=== PATIENT | female | born 1930 | race Caucasian/White ===

== ENCOUNTER 2018-08-26 10:09 | Emergency (ER) | payer MEDICARE ==
[~2018-08-26] VITALS: Ht 160 cm; Wt 63.5 kg
--- OUTSIDE RECORDS SUMMARY | 2018-08-26 10:23 | XMS REPORT | CCD ---
Author Author Sarah Gillis Organization [facility] Address [address] [place] [address] Phone Care Team Providers Care Molder Name Role Phone PP Unavailable CCM Unavailable Summary Purpose Interface Exchange Insurance Providers Payer name Policy type / Coverage type Covered libertarian ID Effective Begin Date Effective End Date WPS Medicare Part B Medicare Part B [id number] 2013 Unknown [facility] Medicare Part B [id number] 2013 Unknown Family history Brother Diagnosis Age At Onset No Family Disease Entered N/A Father Diagnosis Age At Onset No Family Disease Entered N/A Brother Diagnosis Age At Onset No Family Disease Entered N/A Daughter Diagnosis Age At Onset No Family Disease Entered N/A Daughter Diagnosis Age At Onset Amyotrophic lateral sclerosis Unknown Mother Diagnosis Age At Onset Hypertension Unknown Arthritis Unknown Hypercholesterolemia Unknown Social History Social History Element Codes Description Effective Dates Number of children Unknown 2 1 in 2010, 1 lives in [place] 11/07/2016 Marital status Unknown 04/28/2012 Employment Unknown Retired 04/28/[address]: 9107049 Quit over 10 years ago 04/28/[address]: 295528469 Never drinks alcohol 04/28/2012 Allergies, Adverse Reactions, Alerts Substance Reaction Codes Entered Date Inactivated Date Status Dust Unknown 04/28/2012 No Inactive Date Active * NO KNOWN FOOD ALLERGIES Unknown 04/28/2012 No Inactive Date Active CODEINE drowsiness RxNorm: 2670 04/16/2013 No Inactive Date Active Past Medical History Illness Codes Condition Status Onset Date Resolved Date Abnormal weight loss ICD-9: 783.21 ICD-10: R63.4 Active 12/09/2017 Unknown Dementia in other diseases classified elsewhere without behavioral disturbance ICD-9: 294.10 ICD-10: F02.80 Active 05/21/2017 Unknown Essential (primary) hypertension ICD-9: 401.1 ICD-10: I10 Active 04/24/2016 Unknown Vitamin D deficiency, unspecified ICD-9: 268.9 ICD-10: E55.9 Active 02/14/2018 Unknown Encounter for therapeutic drug level monitoring ICD-9: V58.61 ICD-10: Z51.81 Active 12/24/2013 Unknown Pain in left hip ICD-9 : 719.45 ICD-10: M25.552 Active 05/21/2017 Unknown Unspecified dementia with behavioral disturbance ICD-9: 294.21 ICD-10: F03.91 Active 01/07/2017 Unknown Unsteadiness on feet ICD-9: 781.2 ICD-10: R26.81 Active 02/14/2018 Unknown Localized edema ICD-9 : 782.3 ICD-10: R60.0 Active 11/27/2013 Unknown Gastro-esophageal reflux disease without esophagitis ICD-9: 530.81 ICD-10: K21.9 Active 05/07/2017 Unknown Essential (primary) hypertension ICD-9: 401.9 ICD-10: I10 Active 12/24/2013 Unknown Mixed hyperlipidemia ICD-9: 272.2 ICD-10: E78.2 Active 01/08/2017 Unknown Urinary tract infection, site not specified ICD-9: 599.0 ICD-10: N39.0 Active 01/08/2017 Unknown Dysuria ICD-9: 788.1 ICD-10: R30.0 Active 01/07/2017 Unknown Other care home (current) drug therapy ICD-9: V58.69 ICD-10: Z79.899 Active 04/30/2012 Unknown Actinic keratosis ICD- 9: 702.0 ICD-10: L57.0 Active 11/07/2016 Unknown Mixed hyperlipidemia ICD-9: 272.4 ICD-10: E78.2 Active 04/30/2012 Unknown Cervical disc disorder, unspecified, unspecified cervical region ICD-9: 722.91 ICD-10: M50.90 Active 10/03/2015 Unknown Cervicalgia ICD-9: 723.1 ICD-10: M54.2 Active 10/03/2015 Unknown Anemia, unspecified ICD-9: 285.9 ICD-10: D64.9 Active 07/31/2015 Unknown Encounter for immunization ICD-9: V04.81 ICD-10: Z23 Active 03/24/2015 Unknown EDEMA ICD-9: 782.3 Active 11/27/2013 Unknown ENCNTR LONG-ANTICOAG USE ICD-9: V58.61 Active 12/24/2013 Unknown ESSENTIAL HYPERTENSION ICD-9: 401.9 Active 12/24/2013 Unknown Left hip pain ICD-9: 719.45 Active 03/30/2014 Unknown Osteoarthritis ICD-9: 715.90 Active 03/30/2014 Unknown Sciatica Unknown Active 12/01/2013 Unknown Sacroiliitis ICD-9: 720.2 Active 12/01/2013 Unknown SCIATICA ICD-9: 724.3 Active 12/01/2013 Unknown Confusion ICD-9: 298.9 Active 04/30/2013 Unknown Memory loss ICD-9: 780.93 Active 04/30/2013 Unknown ACUTE BRONCHITIS ICD-9 : 466.0 Active 04/16/2013 Unknown Cough ICD-9: 786.2 Active 04/16/2013 Unknown VACCIN FOR INFLUENZA ICD-9: V04.81 Active 03/10/2013 Unknown Osteoarthritis Unknown Active 12/02/2012 Unknown BLISTER FOOT/TOE ICD-9 : 917.2 Active 12/02/2012 Unknown CELLULITIS OF FOOT ICD -9: 682.7 Active 12/02/2012 Unknown Back disorder ICD-9: 724.9 Active 10/08/2012 Unknown Disc disorder ICD-9: 722.90 Active 10/08/2012 Unknown Deep vein thrombosis Unknown Resolved 08/27/2012 Unknown Bruising ICD-9: 924.9 Active 08/27/2012 Unknown 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 2011 Unknown Drug therapy continued ICD-9: V58.69 Active 04/30/2012 Unknown HYPERLIPIDEMIA ICD-9: 272.4 Active 04/30/2012 Unknown Hyperlipidemia Unknown Active 04/28/2012 Unknown Hypertension Unknown Active 04/28/2012 Unknown Iliotibial band syndrome ICD-9: 728.89 Active 04/28/2012 Unknown Other bursitis, not elsewhere classified, left hip ICD-9: 726.5 Active 04/28/2012 Unknown Problems Condition Codes Effective Dates Condition Status Abnormal weight loss ICD-9: 783.21 ICD-10: R63.4 12/09/2017 Active Dementia in other diseases classified elsewhere without behavioral disturbance ICD-9: 294.10 ICD-10: F02.80 05/21/2017 Active Essential (primary) hypertension ICD-9: 401.1 ICD-10: I10 04/24/2016 Active Vitamin D deficiency, unspecified ICD-9: 268.9 ICD-10: E55.9 02/14/2018 Active Encounter for therapeutic drug level monitoring ICD-9: V58.61 ICD-10: Z51.81 12/24/2013 Active Pain in left hip ICD-9 : 719.45 ICD-10: M25.552 05/21/2017 Active Unspecified dementia with behavioral disturbance ICD-9: 294.21 ICD-10: F03.91 01/07/2017 Active Unsteadiness on feet ICD-9: 781.2 ICD-10: R26.81 02/14/2018 Active Localized edema ICD-9 : 782.3 ICD-10: R60.0 11/27/2013 Active Gastro-esophageal reflux disease without esophagitis ICD-9: 530.81 ICD-10: K21.9 05/07/2017 Active Essential (primary) hypertension ICD-9: 401.9 ICD-10: I10 12/24/2013 Active Mixed hyperlipidemia ICD-9: 272.2 ICD-10: E78.2 01/08/2017 Active Urinary tract infection, site not specified ICD-9: 599.0 ICD-10: N39.0 01/08/2017 Active Dysuria ICD-9: 788.1 ICD-10: R30.0 01/07/2017 Active 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 ICD-9: V58.69 ICD-10: Z79.899 04/30/2012 Active Actinic keratosis ICD- 9: 702.0 ICD-10: L57.0 11/07/2016 Active Mixed hyperlipidemia ICD-9: 272.4 ICD-10: E78.2 04/30/2012 Active Cervical disc disorder, unspecified, unspecified cervical region ICD-9: 722.91 ICD-10: M50.90 10/03/2015 Active Cervicalgia ICD-9: 723.1 ICD-10: M54.2 10/03/2015 Active Anemia, unspecified ICD-9: 285.9 ICD-10: D64.9 07/31/2015 Active Encounter for immunization ICD-9: V04.81 ICD-10: Z23 03/24/2015 Active EDEMA ICD-9: 782.3 11/27/2013 Active ENCNTR LONG-ANTICOAG USE ICD-9: V58.61 12/24/2013 Active ESSENTIAL HYPERTENSION ICD-9: 401.9 12/24/2013 Active Left hip pain ICD-9: 719.45 03/30/2014 Active Osteoarthritis ICD-9: 715.90 03/30/2014 Active Sciatica Unknown 12/01/2013 Active Sacroiliitis ICD-9: 720.2 12/01/2013 Active SCIATICA ICD-9: 724.3 12/01/2013 Active Confusion ICD-9: 298.9 04/30/2013 Active Memory loss ICD-9: 780.93 04/30/2013 Active ACUTE BRONCHITIS ICD-9 : 466.0 04/16/2013 Active Cough ICD-9: 786.2 04/16/2013 Active VACCIN FOR INFLUENZA ICD-9: V04.81 03/10/2013 Active Osteoarthritis Unknown 12/02/2012 Active BLISTER FOOT/TOE ICD-9 : 917.2 12/02/2012 Active CELLULITIS OF FOOT ICD -9: 682.7 12/02/2012 Active Back disorder ICD-9: 724.9 10/08/2012 Active Disc disorder ICD-9: 722.90 10/08/2012 Active Deep vein thrombosis Unknown 08/27/2012 Resolved Bruising ICD-9: 924.9 08/27/2012 Active 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 05/19/2012 Active Drug therapy continued ICD-9: V58.69 04/30/2012 Active HYPERLIPIDEMIA ICD-9: 272.4 04/30/2012 Active Hyperlipidemia Unknown 04/28/2012 Active Hypertension Unknown 04/28/2012 Active Iliotibial band syndrome ICD-9: 728.89 04/28/2012 Active Other bursitis, not elsewhere classified, left hip ICD-9: 726.5 04/28/2012 Active Medications Medication Codes Instructions Start Date Stop Date Status Fill Instructions Vitamin D3 5,000 unit tablet RxNorm: 954944 1 Tablet(s) PO daily 08/18/2018 02/13/2019 Active may give OTC bottle Coumadin 5 mg tablet RxNorm: 091681 1 Tablet(s) PO daily except 1/2 Tab on Sat, Sat07/21/2018 01/18/2019 Active hydrochlorothiazide 12.5 mg tablet RxNorm: 059354 1 Tablet(s) PO daily 07/11/2018 02/05/2019 Active Depakote 125 mg tablet,delayed release RxNorm: 7510510 Tablet(s) Tablet(s) 1 Tablet(s) PO QPM 05/16/2018 12/11/2018 Active PLEASE SEND REFILL REQUESTS ELECTRONICALLY pravastatin 40 mg tablet RxNorm: 026294 TAKE ONE TABLET BY MOUTH EVERY DAY 03/17/2018 02/09/2019 Active Generic For:*PRAVACHOL 40 MG TABLET 03/17/2018 8:03:02 AM amlodipine 5 mg tablet RxNorm: 729236 TAKE ONE (1) TABLET BY MOUTH DAILY 02/18/2018 02/12/2019 Active Generic For:NORVASC 5 MG TABLET 02/18/2018 10:12:27 AM Vitamin D3 5,000 unit tablet RxNorm: 701860 1 Tablet(s) PO daily 02/14/2018 02/13/2018 Inactive Vitamin D2 50,000 unit capsule RxNorm: 2692304 1 Capsule(s) PO QW 02/14/2018 02/13/2018 Inactive Vitamin D3 5,000 unit tablet RxNorm: 866064 1 Tablet(s) PO daily 02/14/2018 08/12/2018 Inactive may give OTC bottle Vitamin D2 50,000 unit capsule RxNorm: 0388237 1 Capsule(s) PO QW x8 weeks then stop 02/14/2018 04/14/2018 Inactive amlodipine 5 mg tablet RxNorm: 006868 1 Tablet(s) PO daily 02/17/2018 Inactive Generic For:NORVASC 5 MG TABLET REFILL REQUEST 08/27/2016 10:47:17 AM Coumadin 5 mg tablet RxNorm: 510489 1 Tablet(s) PO daily except 1/2 Tab on Wed, Sat12/16/2017 06/15/2018 Inactive hydrochlorothiazide 12.5 mg tablet RxNorm: 110899 1 Tablet(s) PO daily 12/16/2017 07/10/2018 Inactive hydrochlorothiazide 12.5 mg tablet RxNorm: 777975 Tablet(s) Tablet(s) 1 Tablet(s) PO daily 11/18/2017 12/15/2017 Inactive PLEASE SEND REFILL REQUESTS ELECTRONICALLY Depakote 125 mg tablet,delayed release RxNorm: 6058381 Tablet(s) Tablet(s) 1 Tablet(s) PO QPM 10/17/2017 05/14/2018 Inactive PLEASE SEND REFILL REQUESTS ELECTRONICALLY hydrochlorothiazide 12.5 mg tablet RxNorm: 304316 Tablet(s) Tablet(s) 1 Tablet(s) PO daily 10/17/2017 11/17/2017 Inactive PLEASE SEND REFILL REQUESTS ELECTRONICALLY Coumadin 5 mg tablet RxNorm: 826168 1 Tablet(s) daily TAKE 1 TABLET BY MOUTH DAILY 08/15/2017 12/15/2017 Inactive Coumadin 5 mg tablet RxNorm: 537788 Tablet(s) TAKE 1 TABLET BY MOUTH DAILY 06/24/2017 08/14/2017 Inactive pravastatin 40 mg tablet RxNorm: 694318 Tablet(s) TAKE ONE TABLET BY MOUTH EVERY DAY 05/27/2017 03/16/2018 Inactive Voltaren 1 % topical gel RxNorm: 968578 4 Gram(s) TOP QID 05/2106/19/2017 Inactive Depakote 125 mg tablet,delayed release RxNorm: 7919669 Tablet(s) 1 Tablet(s) PO QPM 04/22/2017 10/16/2017 Inactive hydrochlorothiazide 12.5 mg tablet RxNorm: 108820 Tablet(s) 1 Tablet(s) PO daily 03/22/2017 10/16/2017 Inactive amlodipine 5 mg tablet RxNorm: 188249 1 Tablet(s) PO daily 02/12/2018 Inactive Generic For:NORVASC 5 MG TABLET REFILL REQUEST 08/27/2016 10:47:17 AM cephalexin 500 mg tablet RxNorm: 601872 1 Tablet(s) PO TID 01/17/2017 Inactive cephalexin 500 mg tablet RxNorm: 085778 1 Tablet(s) PO TID 01/07/2017 Inactive Coumadin 5 mg tablet RxNorm: 421490 TAKE 1 TABLET BY MOUTH DAILY EXCEPT 1/2 TABLET ON SATURDAY AND Saturday12/26/2016 06/23/2017 Inactive Generic For:COUMADIN 5MG TAB 12/26/2016 9:17:49 AM N O T I C E Last quantity doesn't match original quantity Depakote 125 mg tablet,delayed release RxNorm: 3030742 Tablet(s) 1 Tablet(s) PO QPM 10/25/2016 04/21/2017 Inactive Coumadin 5 mg tablet RxNorm: 924654 TAKE 1 TABLET BY MOUTH DAILY EXCEPT 1/2 TABLET ON SATURDAY AND Saturday09/27/2016 12/25/2016 Inactive Generic For:COUMADIN 5MG TAB N O T I C E Last quantity doesn't match original quantity REFILL REQUEST 09/27/2016 9:43:11 AM Coumadin 4 mg tablet RxNorm: 220804 Tablet(s) as doctor directed TAKE 1 TABLET 4 days per week 09/27/2016 04/24/2017 Inactive Generic For:COUMADIN 4MG TAB amlodipine 5 mg tablet RxNorm: 727865 TAKE 1 TABLET BY MOUTH DAILY 08/27/2016 09/26/2016 Inactive Generic For:NORVASC 5 MG TABLET REFILL REQUEST 08/27/2016 10:47: 17 AM hydrochlorothiazide 12.5 mg tablet RxNorm: 930959 Tablet(s) 1 Tablet(s) PO daily 08/27/2016 03/21/2017 Inactive pravastatin 40 mg tablet RxNorm: 413577 Tablet(s) TAKE ONE TABLET BY MOUTH EVERY DAY 06/29/2016 05/24/2017 Inactive Coumadin 5 mg tablet RxNorm: 512461 1 Tablet(s) PO daily except 1/2 tab on Tu, 06/14/2016 09/26/2016 Inactive Coumadin 5 mg tablet RxNorm: 275900 1 Tablet(s) PO daily except 1/2 tab on Tues, Sat 06/12/2016 12/08/2016 Inactive Depakote 125 mg tablet,delayed release RxNorm: 5846156 1 Tablet(s) PO QPM 04/30/2016 10/24/2016 Inactive amlodipine 5 mg tablet RxNorm: 029957 Tablet(s) TAKE ONE TABLET BY MOUTH EVERY DAY 03/06/2016 08/26/2016 Inactive Generic For:NORVASC 5 MG TABLET 2015 9:02 :57 AM N O T I C E Last quantity doesn't match original quantity hydrochlorothiazide 12.5 mg tablet RxNorm: 935493 1 Tablet(s) PO daily 02/01/2016 08/26/2016 Inactive Coumadin 5 mg tablet RxNorm: 490438 1 Tablet(s) PO daily except 1/2 tab on , [facility] 12/26/2015 06/11/2016 Inactive Coumadin 5 mg tablet RxNorm: 928924 TAKE 1 TABLET BY MOUTH 3 DAYS PER WEEK ([facility], [facility]) 11/10/2015 12/25/2015 Inactive Generic For:COUMADIN 5MG TAB PT SAYS TAKING DIFFERENT NOW...WE NEED NEW RX PLEASE Coumadin 5 mg tablet RxNorm: 568185 Tablet(s) TAKE 1 TABLET BY MOUTH 5 DAYS PER WEEK [place] Sat11/04/201511/08 Inactive Generic For:COUMADIN 5MG TAB 10/04/2015 10:19:46 AM Depakote 125 mg tablet,delayed release RxNorm: 1225940 1 Tablet(s) PO QPM 11/04/2015 04/29/2016 Inactive Coumadin 5 mg tablet RxNorm: 806313 TAKE 1 TABLET BY MOUTH 3 DAYS PER WEEK ([facility], [facility]) 10/04/2015 11/03/2015 Inactive Generic For:COUMADIN 5MG TAB 10/04/2015 10:19:46 AM amlodipine 5 mg tablet RxNorm: 612317 Tablet(s) TAKE ONE TABLET BY MOUTH EVERY DAY 09/12/2015 03/05/2016 Inactive Generic For:NORVASC 5 MG TABLET 2015 9:02 :57 AM N O T I C E Last quantity doesn't match original quantity Coumadin 5 mg tablet RxNorm: 166491 1 Tablet(s) daily 201510/03/2015 Inactive Voltaren 1 % topical gel RxNorm: 497060 4 Gram(s) TOP QID 06/2904/24/2016 Inactive Depakote 125 mg tablet,delayed release RxNorm: 1638504 1 Tablet(s) PO QPM 06/29/2015 10/26/2015 Inactive hydrochlorothiazide 12.5 mg tablet RxNorm: 904609 1 Tablet(s) PO daily 06/29/2015 01/24/2016 Inactive Depakote 125 mg tablet,delayed release RxNorm: 9305442 1 Tablet(s) PO QPM 06/29/2015 06/28/2015 Inactive pravastatin 40 mg tablet RxNorm: 178543 Tablet(s) TAKE ONE TABLET BY MOUTH EVERY DAY 06/29/2015 06/28/2016 Inactive Generic For:*PRAVACHOL 40 MG TABLET Coumadin 5 mg tablet RxNorm: 885710 1 Tablet(s) PO TUE, THUR, SAT 3 days per week 05/09/2015 06/30/2015 Inactive take 4mg on sun sat amlodipine 5 mg tablet RxNorm: 551102 TAKE ONE TABLET BY MOUTH EVERY DAY 2015 09/06/2015 Inactive Generic For:NORVASC 5 MG TABLET 2015 9:02:57 AM N O T I C E Last quantity doesn't match original quantity Coumadin 5 mg tablet RxNorm: 614607 1 Tablet(s) PO TUE, THUR, SAT 3 days per week 11/15/2014 05/08/2015 Inactive take 4mg on sun sat Coumadin 4 mg tablet RxNorm: 508549 Tablet(s) as doctor directed TAKE 1 TABLET 4 days per week 11/15/2014 06/12/2015 Inactive Generic For:COUMADIN 4MG TAB Coumadin 5 mg tablet RxNorm: 287949 1 Tablet(s) PO TUE, THUR, SAT 10/27/2014 11/14/2014 Inactive TAKE 4MG ON SUN Sat [SAVINGS FOR NON-COVERED DRUGS -- BIN: 569082, PCN: ASPROD1, Group: XXXXX, ID# [id number], Questions: . THIS IS NOT INSURANCE.] Coumadin 5 mg tablet RxNorm: 086233 1 Tablet(s) PO TUE, THUR, SAT 10/27/2014 10/26/2014 Inactive amlodipine 5 mg tablet RxNorm: 714245 1 Tablet(s) PO daily 03/10/2015 Inactive Generic For:NORVASC 5 MG TABLET Generic For:NORVASC 5 MG TABLET 2012 8:54:53 AM pravastatin 40 mg tablet RxNorm: 929411 TAKE ONE TABLET BY MOUTH EVERY DAY 08/12/2014 06/28/2015 Inactive Generic For:*PRAVACHOL 40 MG TABLET Coumadin 4 mg tablet RxNorm: 246181 TAKE 1 TABLET BY MOUTH DAILY 08/12/2014 11/14/2014 Inactive Generic For:COUMADIN 4MG TAB pravastatin 40 mg tablet RxNorm: 596816 1 Tablet(s) PO daily TAKE ONE TABLET BY MOUTH EVERY DAY 08/11/2014 08/11/2014 Inactive Generic For:*PRAVACHOL 40 MG TABLET Generic For:*PRAVACHOL 40 MG TABLET Coumadin 4 mg tablet RxNorm: 374623 Tablet(s) PO TAKE ONE TABLET BY MOUTH EVERY DAY 08/11/2014 08/11/2014 Inactive Generic For:COUMADIN 4MG TAB Generic For: COUMADIN 4MG TAB [SAVINGS FOR NON-COVERED DRUGS -- BIN:829129, PCN: ASPROD1, Group: XXXXX, ID# [id number], Questions: . THIS IS NOT INSURANCE.] amlodipine 5 mg tablet RxNorm: 628224 1 Tablet(s) daily 1 Tablet(s) PO daily TAKE ONE (1) TABLET BY MOUTH DAILY 05/12/2014 09/13/2014 Inactive Generic For:NORVASC 5 MG TABLET Generic For:NORVASC 5 MG TABLET 05/18/2013 8:54:53 AM amlodipine 5 mg tablet RxNorm: 765112 1 Tablet(s) PO daily TAKE ONE (1) TABLET BY MOUTH DAILY 01/14/2014 05/11/2014 Inactive Generic For:NORVASC 5 MG TABLET Generic For:NORVASC 5 MG TABLET 05/18/2013 8:54:53 AM Coumadin 4 mg tablet RxNorm: 022085 TAKE 1 TABLET BY MOUTH DAILY 01/14/2014 08/11/2014 Inactive Generic For:COUMADIN 4MG TAB amlodipine 5 mg tablet RxNorm: 920329 1 Tablet(s) PO daily TAKE ONE (1) TABLET BY MOUTH DAILY 01/14/2014 01/08/2015 Inactive Generic For:NORVASC 5 MG TABLET Generic For:NORVASC 5 MG TABLET 05/18/2013 8:54:53 AM amlodipine 5 mg tablet RxNorm: 746817 1 Tablet(s) PO daily TAKE ONE (1) TABLET BY MOUTH DAILY 09/18/2013 01/13/2014 Inactive Generic For:NORVASC 5 MG TABLET Generic For:NORVASC 5 MG TABLET 05/18/2013 8:54:53 AM Coumadin 4 mg tablet RxNorm: 636735 4mg daily Tablet(s) PO daily 07/30/2013 01/13/2014 Inactive Generic For:COUMADIN 4MG TAB pravastatin 40 mg tablet RxNorm: 426805 Tablet(s) PO TAKE ONE TABLET BY MOUTH EVERY DAY 07/20/2013 08/10/2014 Inactive Generic For:*PRAVACHOL 40 MG TABLET Generic For:*PRAVACHOL 40 MG TABLET Kenalog 40 mg/mL suspension for injection RxNorm: 1442969 Milliliter(s) Inj 05/20/2013 05/20/2013 Inactive azithromycin 500 mg tablet RxNorm: 3112439 1 Tablet(s) PO daily 05/20/2013 05/24/2013 Inactive amlodipine 5 mg tablet RxNorm: 664511 Tablet(s) PO TAKE ONE (1) TABLET BY MOUTH DAILY 05/18/2013 05/17/2013 Inactive Generic For:NORVASC 5 MG TABLET Generic For: NORVASC 5 MG TABLET 05/18/2013 8:54:53 AM amlodipine 5 mg tablet RxNorm: 516310 1 Tablet(s) PO daily TAKE ONE (1) TABLET BY MOUTH DAILY 05/18/2013 09/17/2013 Inactive Generic For:NORVASC 5 MG TABLET Generic For:NORVASC 5 MG TABLET 05/18/2013 8:54:53 AM Coumadin 4 mg tablet RxNorm: 178811 2mg wed 4 mg other Tablet(s) PO daily 04/28/2013 07/29/2013 Inactive Generic For:COUMADIN 4MG TAB Coumadin 4 mg tablet RxNorm: 662792 4mg daily Tablet(s) PO daily 04/16/2013 04/27/2013 Inactive Generic For:COUMADIN 4MG TAB Rocephin 500 mg solution for injection RxNorm: 852551 Inj 04/1604/16/2013 Inactive amoxicillin 500 mg tablet RxNorm: 185530 1 Tablet(s) PO TID 04/22/2013 Inactive Coumadin 4 mg tablet RxNorm: 872159 Tablet(s) PO TAKE ONE TABLET BY MOUTH EVERY DAY 04/16/2013 08/10/2014 Inactive Generic For:COUMADIN 4MG TAB Generic For: COUMADIN 4MG TAB Coumadin 4 mg tablet RxNorm: 687519 4mg daily Tablet(s) PO daily 03/18/2013 04/15/2013 Inactive Generic For:COUMADIN 4MG TAB Coumadin 4 mg tablet RxNorm: 257845 2mg on tuesdays, 4mg others Tablet(s) PO daily 03/10/2013 03/17/2013 Inactive Generic For:COUMADIN 4MG TAB Influenza Virus Vaccine 0.5 mL RxNorm: IM 03/10/2013 03/10/2013 Inactive amlodipine 5 mg tablet RxNorm: 286695 Tablet(s) PO TAKE ONE (1) TABLET BY MOUTH DAILY 01/22/2013 05/17/2013 Inactive Generic For:NORVASC 5 MG TABLET 01/22/2013 9: 42:13 AM cephalexin 500 mg tablet RxNorm: 082757 1 Tablet(s) PO TID 12/08/2012 Inactive amlodipine 5 mg tablet RxNorm: 829296 Tablet(s) PO TAKE ONE (1) TABLET BY MOUTH DAILY 09/22/2012 01/21/2013 Inactive Generic For:NORVASC 5 MG TABLET 09/20/2012 9: 10AM 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 Thank you! Coumadin 4 mg tablet RxNorm: 060226 1 Tablet(s) PO daily TAKE ONE TABLET BY MOUTH EVERY DAY 09/15/2012 03/09/2013 Inactive Generic For:COUMADIN 4MG TAB Coumadin 4 mg tablet RxNorm: 446999 Tablet(s) PO TAKE ONE TABLET BY MOUTH EVERY DAY 09/12/2012 09/14/2012 Inactive Generic For:COUMADIN 4MG TAB Coumadin 4 mg tablet RxNorm: 012366 1 Tablet(s) PO daily 201209/11/2012 Inactive new dose Coumadin 4 mg tablet RxNorm: 453646 1 Tablet(s) PO daily 201207/15/2012 Inactive Coumadin 3 mg tablet RxNorm: 991944 1 1/2 Tablet(s) PO daily 07/16/2012 Inactive pravastatin 40 mg tablet RxNorm: 839897 1 Tablet(s) PO daily 07/19/2013 Inactive Coumadin 3 mg tablet RxNorm: 954318 1 1/2 Tablet(s) PO daily 07/15/2012 Inactive amlodipine 5 mg tablet RxNorm: 532696 1 Tablet(s) PO daily 05/201209/21/2012 Inactive Voltaren 1 % Topical Gel RxNorm: 582078 4 Gram(s) TOP QID 04/2805/27/2012 Inactive Chikis 180 mg tablet RxNorm: 472520 1 Tablet(s) PO daily No Start Date Active hydrochlorothiazide 12.5 mg tablet RxNorm: 943212 1 Tablet(s) PO daily No Start Date 06/28/2015 Inactive Ziac 2.5 mg-6.25 mg tablet RxNorm: 790384 1 Tablet(s) PO daily No Start Date 09/15/2013 Inactive Coumadin 3 mg tablet RxNorm: 936948 Tablet(s) PO No Start Date 04/30/2012 Inactive pravastatin 40 mg tablet RxNorm: 219131 1 Tablet(s) PO daily No Start Date 06/25/2012 Inactive Medication Administered Medication Codes Instructions Start Date Status Kenalog 40 mg/mL suspension for injection RxNorm: 8667187 Milliliter 05/20/2013 No longer Active Rocephin 500 mg solution for injection RxNorm: 079453 04/16/2013 No longer Active Influenza Virus Vaccine 0.5 mL RxNorm: 03/10/2013 No longer Active Immunizations Vaccine Codes Date Status Influenza CVX: 141 03/25/2015 completed Influenza CVX: 141 04/23/2014 completed Influenza CVX: 141 03/10/2013 completed Influenza CVX: 141 04/28/2012 completed Pneumococcal (Adult) CVX: 33 03/17/2011 completed Assessments Condition Codes Effective Dates Dementia in other diseases classified elsewhere without behavioral disturbance ICD-10: F02.80 ICD-9: 294.10 08/19/2018 Vitamin D deficiency, unspecified ICD-10: E55.9 ICD-9: 268.9 08/19/2018 Essential (primary) hypertension ICD-10: I10 ICD-9: 401.1 08/19/2018 Abnormal weight loss ICD-10: R63.4 ICD-9: 783.21 08/19/2018 Pain in left hip ICD-10: M25.552 ICD-9: 719.45 02/14/2018 Unsteadiness on feet ICD-10: R26.81 ICD-9: 781.2 02/14/2018 Unspecified dementia with behavioral disturbance ICD-10: F03.91 ICD-9: 294.21 02/14/2018 Encounter for therapeutic drug level monitoring ICD-10: Z51.81 ICD-9: V58.61 02/14/2018 Localized edema ICD-10: R60.0 ICD-9: 782.3 08/13/2017 Gastro-esophageal reflux disease without esophagitis ICD-10 : K21.9 ICD-9: 530.81 05/07/2017 Mixed hyperlipidemia ICD-10: E78.2 ICD-9: 272.2 01/08/2017 Urinary tract infection, site not specified ICD-10: N39.0 ICD-9: 599.0 01/08/2017 Essential (primary) hypertension ICD-10: I10 ICD-9: 401.9 01/08/2017 Dysuria ICD-10: R30.0 ICD-9: 788.1 01/07/2017 Other care home (current) drug therapy ICD-10: Z79.899 ICD-9: V58.69 01/07/2017 Mixed hyperlipidemia ICD-10: E78.2 ICD-9: 272.4 11/07/2016 Actinic keratosis ICD-10: L57.0 ICD-9: 702.0 11/07/2016 Cervical disc disorder, unspecified, unspecified cervical region ICD-10: M50.90 ICD-9: 722.91 10/04/2015 Cervicalgia ICD-10: M54.2 ICD-9: 723.1 10/04/2015 Anemia, unspecified ICD-10: D64.9 ICD-9: 285.9 08/01/2015 Encounter for immunization ICD-10: Z23 ICD-9: V04.81 03/25/2015 ENCNTR LONG-ANTICOAG USE ICD-9: V58.61 ESSENTIAL HYPERTENSION ICD-9: 401.9 02/17 Left hip pain ICD-9: 719.45 02/17/2015 Osteoarthritis ICD-9: 715.90 02/17/2015 EDEMA ICD-9: 782.3 02/17/2015 SCIATICA ICD-9: 724.3 12/24/2013 Sacroiliitis ICD-9: 720.2 12/01/2013 Acute bronchitis ICD-9: 466.0 05/20/2013 COUGH ICD-9: 786.2 05/20/2013 Memory loss ICD-9: 780.93 04/30/2013 Confusion ICD-9: 298.9 04/30/2013 VACCIN FOR INFLUENZA ICD-9: V04.81 2012 BLISTER FOOT/TOE ICD-9: 917.2 12/08/2012 CELLULITIS OF FOOT ICD-9: 682.7 2012 Disc disorder ICD-9: 722.90 10/08/2012 Back disorder ICD-9: 724.9 10/08/2012 MERALGIA PARESTHETICA ICD-9: 355.1 2012 Bruising ICD-9: 924.9 08/27/2012 ENTHESOPATHY OF HIP ICD-9: 726.5 2012 HYPERLIPIDEMIA ICD-9: 272.4 04/30/2012 Drug therapy continued ICD-9: V58.69 Iliotibial band syndrome ICD-9: 728.89 Reason For Visit Reason For Visit Effective Dates Notes hypertension 08/19/2018 lower leg pain 02/14/2018 lower leg pain 11/14/2017 lower leg pain 08/13/2017 lower leg pain 05/21/2017 arthralgia(s) 05/07/2017 skin lesion 01/08/2017 skin lesion 01/07/2017 hypertension 11/07/2016 hypertension 07/26/2016 hypertension 04/25/2016 hypertension 10/04/2015 hypertension 06/29/2015 vaccination against influenza 03/25/2015 hip pain 02/17/2015 hip pain 02/07/2015 vaccination against influenza 04/23/2014 hip pain 03/30/2014 hypertension 12/24/2013 hip pain 12/01/2013 edema 11/27/2013 hypertension 08/27/2013 cough 05/20/2013 shortness of breath 04/30/2013 cough 04/16/2013 hypertension 03/10/2013 edema 12/08/2012 hypertension 12/02/2012 leg pain/sciatica 10/08/2012 abnormal bleeding and bruising 08/27/2012 low back and leg pain 07/09/2012 hypertension 05/19/2012 hypertension 04/28/2012 Results Observation Observation Code Item Item Code Result Date Valproic Acid Azf097 VALPROIC 26.0 ug/ml 08/19/2018 Comp Metabolic Frg623 NA 141 mEq/L 08/19/2018 Comp Metabolic Jig767 K 3.9 mEq/L 08/19/2018 Comp Metabolic Zlt030 CL 105 mEq/L 08/19/2018 Comp Metabolic Wpo617 CO2 26.0 mEq/L 08/19/2018 Comp Metabolic Olm650 ANION GAP 14 08/19/2018 Comp Metabolic Bpz877 GLUCOSE 90 mg/dL 08/19/2018 Comp Metabolic Nun228 Creat 0.9 mg/dL 08/19/2018 Comp Metabolic Wwx664 eGFR 60 ml/min/1.73m2 08/19/2018 Comp Metabolic Omg051 BUN 15 mg/dL 08/19/2018 Comp Metabolic Ukw372 B/C Ratio 16.0 Ratio 08/19/2018 Comp Metabolic Pln273 CALCIUM 9.8 mg/dL 08/19/2018 Comp Metabolic Cxa850 ALK PHOS 55 U/L 08/19/2018 Comp Metabolic Jei884 AST(SGOT) 13 U/L 08/19/2018 Comp Metabolic Udh006 ALT(SGPT) 8 U/L 08/19/2018 Comp Metabolic Awn755 BILI T 0.5 mg/dL 08/19/2018 Comp Metabolic Xjj761 ALBUMIN 3.9 g/dL 08/19/2018 Comp Metabolic Bgj846 TPRO 6.6 g/dL 08/19/2018 Comp Metabolic Wae832 GLOB 2.7 g/dL 08/19/2018 Comp Metabolic Iuc554 A/G Ratio 1.4 Ratio 08/19/2018 Comp Metabolic Oyn228 Osmo 282 mOsmo 08/19/2018 Cbc With Differential Ord2 WBC 5.51 K/ul 08/19/2018 Cbc With Differential Ord2 RBC 4.77 M/ul 08/19/2018 Cbc With Differential Ord2 HGB 15.8 g/dl 08/19/2018 Cbc With Differential Ord2 HCT 47.6 % 08/19/2018 Cbc With Differential Ord2 Neut% 71.1 % 08/19/2018 Cbc With Differential Ord2 MCV 99.8 fl 08/19/2018 Cbc With Differential Ord2 Lymph% 18.3 % 08/19/2018 Cbc With Differential Ord2 MCH 33.1 pg 08/19/2018 Cbc With Differential Ord2 Bacon% 9.1 % 08/19/2018 Cbc With Differential Ord2 Eos% 1.3 % 08/19/2018 Cbc With Differential Ord2 MCHC 33.2 pg 08/19/2018 Cbc With Differential Ord2 PLT 217 K/ul 08/19/2018 Cbc With Differential Ord2 Baso% 0.2 % 08/19/2018 Cbc With Differential Ord2 Neut ABS# 3.92 K/ul 08/19/2018 Cbc With Differential Ord2 RDW 14.8 % 08/19/2018 Cbc With Differential Ord2 Lymph ABS# 1.01 K/ul 08/19/2018 Cbc With Differential Ord2 Bacon ABS# 0.5 K/ul 08/19/2018 Cbc With Differential Ord2 Eos ABS# 0.1 K/ul 08/19/2018 Cbc With Differential Ord2 Baso ABS# 0.0 K/ul 08/19/2018 Tsh Ord6 TSH (3rd IS) 2.91 uIU/mL 08/19/2018 Vitamin D 25 Oh Pus4424 VITAMIN D, 25 HYDROXY 87.16 ng/mL Pt Qkc4670 PT 27.0 seconds 08/18/2018 Pt Acu4315 INR 2.5 08/18/2018 Pt Scu7637 Low Intensity - 1.5-2.0 08/18/2018 Pt Rev5095 Mod intensity - 2.0-3.0 08/18/2018 Pt Bsk5202 Hi intensity - 3.0-4.0 08/18/2018 Pt Xtp1649 PT 30.3 seconds 07/18/2018 Pt Kcf1728 INR 2.9 07/18/2018 Pt Qwk9112 Low Intensity - 1.5-2.0 07/18/2018 Pt Drv8496 Mod intensity - 2.0-3.0 07/18/2018 Pt Odp1920 Hi intensity - 3.0-4.0 07/18/2018 Pt Obg4317 PT 32.5 seconds 06/20/2018 Pt Ujw8752 INR 3.2 06/20/2018 Pt Daa2039 Low Intensity - 1.5-2.0 06/20/2018 Pt Ayo2620 Mod intensity - 2.0-3.0 06/20/2018 Pt Pjd1630 Hi intensity - 3.0-4.0 06/20/2018 Pt Rtf7560 PT 30.3 seconds 05/19/2018 Pt Azx2415 INR 2.9 05/19/2018 Pt Xya8437 Low Intensity - 1.5-2.0 05/19/2018 Pt Glr9519 Mod intensity - 2.0-3.0 05/19/2018 Pt Bcj4963 Hi intensity - 3.0-4.0 05/19/2018 Pt Mdt4849 PT 28.9 seconds 04/18/2018 Pt Wup8305 INR 2.8 04/18/2018 Pt Ppt3565 Low Intensity - 1.5-2.0 04/18/2018 Pt Xaj2108 Mod intensity - 2.0-3.0 04/18/2018 Pt Npa9567 Hi intensity - 3.0-4.0 04/18/2018 Pt Fpx6510 PT 23.6 seconds 03/14/2018 Pt Tjv9350 INR 2.1 03/14/2018 Pt Jdu2614 Low Intensity - 1.5-2.0 03/14/2018 Pt Mgy9415 Mod intensity - 2.0-3.0 03/14/2018 Pt Jem5074 Hi intensity - 3.0-4.0 03/14/2018 Tsh Ord6 TSH (3rd IS) 2.84 uIU/mL 02/14/2018 Cbc With Differential Ord2 WBC 4.67 K/ul 02/14/2018 Cbc With Differential Ord2 RBC 4.86 M/ul 02/14/2018 Cbc With Differential Ord2 HGB 15.8 g/dl 02/14/2018 Cbc With Differential Ord2 HCT 47.9 % 02/14/2018 Cbc With Differential Ord2 Neut% 66.3 % 02/14/2018 Cbc With Differential Ord2 MCV 98.6 fl 02/14/2018 Cbc With Differential Ord2 Lymph% 18.8 % 02/14/2018 Cbc With Differential Ord2 MCH 32.5 pg 02/14/2018 Cbc With Differential Ord2 Bacon% 12.8 % 02/14/2018 Cbc With Differential Ord2 MCHC 33.0 pg 02/14/2018 Cbc With Differential Ord2 Eos% 1.9 % 02/14/2018 Cbc With Differential Ord2 PLT 223 K/ul 02/14/2018 Cbc With Differential Ord2 Baso% 0.2 % 02/14/2018 Cbc With Differential Ord2 RDW 14.8 % 02/14/2018 Cbc With Differential Ord2 Neut ABS# 3.09 K/ul 02/14/2018 Cbc With Differential Ord2 Lymph ABS# 0.88 K/ul 02/14/2018 Cbc With Differential Ord2 Bacon ABS# 0.6 K/ul 02/14/2018 Cbc With Differential Ord2 Eos ABS# 0.1 K/ul 02/14/2018 Cbc With Differential Ord2 Baso ABS# 0.0 K/ul 02/14/2018 Comp Metabolic Tkc084 NA 142 mEq/L 02/14/2018 Comp Metabolic Gsl967 K 4.0 mEq/L 02/14/2018 Comp Metabolic Qgi500 CL 107 mEq/L 02/14/2018 Comp Metabolic Prw364 CO2 25.0 mEq/L 02/14/2018 Comp Metabolic Aem792 ANION GAP 14 02/14/2018 Comp Metabolic Jvt571 GLUCOSE 71 mg/dL 02/14/2018 Comp Metabolic Ive668 Creat 0.8 mg/dL 02/14/2018 Comp Metabolic Dmq195 eGFR 77 ml/min/1.73m2 02/14/2018 Comp Metabolic Hbq252 BUN 11 mg/dL 02/14/2018 Comp Metabolic Kag584 B/C Ratio 14.5 Ratio 02/14/2018 Comp Metabolic Psq637 CALCIUM 9.3 mg/dL 02/14/2018 Comp Metabolic Xnd522 ALK PHOS 56 U/L 02/14/2018 Comp Metabolic Aqt422 AST(SGOT) 13 U/L 02/14/2018 Comp Metabolic Eop730 ALT(SGPT) 8 U/L 02/14/2018 Comp Metabolic Buj192 BILI T 0.7 mg/dL 02/14/2018 Comp Metabolic Xxc342 ALBUMIN 3.7 g/dL 02/14/2018 Comp Metabolic Giw612 TPRO 6.5 g/dL 02/14/2018 Comp Metabolic Hvg330 GLOB 2.8 g/dL 02/14/2018 Comp Metabolic Pmj339 A/G Ratio 1.3 Ratio 02/14/2018 Comp Metabolic Lkl900 Osmo 281 mOsmo 02/14/2018 Pt Rrg2444 PT 26.2 seconds 02/14/2018 Pt Emu5349 INR 2.4 02/14/2018 Pt Egd2621 Low Intensity - 1.5-2.0 02/14/2018 Pt Mmk0540 Mod intensity - 2.0-3.0 02/14/2018 Pt Qxk4531 Hi intensity - 3.0-4.0 02/14/2018 Vitamin D 25 Oh Khr8194 VITAMIN D, 25 HYDROXY 14.31 ng/mL Valproic Acid Flf096 VALPROIC 20.0 ug/ml 02/14/2018 Pt Kgq4404 PT 29.2 seconds 01/16/2018 Pt Gfd5518 INR 2.7 01/16/2018 Pt Ash1792 Low Intensity - 1.5-2.0 01/16/2018 Pt Yxd1062 Mod intensity - 2.0-3.0 01/16/2018 Pt Cwt6885 Hi intensity - 3.0-4.0 01/16/2018 Pt Pen1280 PT 29.1 seconds 12/09/2017 Pt Qnr3296 INR 2.7 12/09/2017 Pt Xlq9906 Low Intensity - 1.5-2.0 12/09/2017 Pt Gac7317 Mod intensity - 2.0-3.0 12/09/2017 Pt Jiy9702 Hi intensity - 3.0-4.0 12/09/2017 Pt Zxs6628 PT 25.5 seconds 10/31/2017 Pt Pdw8848 INR 2.3 10/31/2017 Pt Jmn7276 Low Intensity - 1.5-2.0 10/31/2017 Pt Uuj9719 Mod intensity - 2.0-3.0 10/31/2017 Pt Jmx4382 Hi intensity - 3.0-4.0 10/31/2017 Pt Jbo0807 PT 29.5 seconds 10/03/2017 Pt Tis1175 INR 2.8 10/03/2017 Pt Nne0243 Low Intensity - 1.5-2.0 10/03/2017 Pt Xew3026 Mod intensity - 2.0-3.0 10/03/2017 Pt Kbj7195 Hi intensity - 3.0-4.0 10/03/2017 Pt Bes3484 PT 28.1 seconds 08/30/2017 Pt Hkv9883 INR 2.6 08/30/2017 Pt Knu1451 Low Intensity - 1.5-2.0 08/30/2017 Pt Jbe4846 Mod intensity - 2.0-3.0 08/30/2017 Pt Tzw7640 Hi intensity - 3.0-4.0 08/30/2017 Pt Dhv1412 PT 33.2 seconds 08/15/2017 Pt Btm1439 INR 3.2 08/15/2017 Pt Ngm8480 Low Intensity - 1.5-2.0 08/15/2017 Pt Kup0141 Mod intensity - 2.0-3.0 08/15/2017 Pt Ocu8787 Hi intensity - 3.0-4.0 08/15/2017 Pt Ejj7919 PT 31.5 seconds 07/10/2017 Pt Yrb8636 INR 3.0 07/10/2017 Pt Vfx9516 Low Intensity - 1.5-2.0 07/10/2017 Pt Bmp3075 Mod intensity - 2.0-3.0 07/10/2017 Pt Kjj6706 Hi intensity - 3.0-4.0 07/10/2017 Pt Zan8060 PT 33.5 seconds 05/31/2017 Pt Tub7677 INR 3.2 05/31/2017 Pt Svu4019 Low Intensity - 1.5-2.0 05/31/2017 Pt Lbo5995 Mod intensity - 2.0-3.0 05/31/2017 Pt Xqe6700 Hi intensity - 3.0-4.0 05/31/2017 Pt Maz9643 PT 32.2 seconds 05/02/2017 Pt Qrc8459 INR 3.1 05/02/2017 Pt Yhj9722 Low Intensity - 1.5-2.0 05/02/2017 Pt Jeu3488 Mod intensity - 2.0-3.0 05/02/2017 Pt Dxk5551 Hi intensity - 3.0-4.0 05/02/2017 Pt Qzu8244 PT 26.8 seconds 03/28/2017 Pt Sub6409 INR 2.5 03/28/2017 Pt Ija4335 Low Intensity - 1.5-2.0 03/28/2017 Pt Zwf3684 Mod intensity - 2.0-3.0 03/28/2017 Pt Ubs9061 Hi intensity - 3.0-4.0 03/28/2017 Pt Fbl5027 PT 26.8 seconds 02/22/2017 Pt Ywe8648 INR 2.5 02/22/2017 Pt Ync7136 Low Intensity - 1.5-2.0 02/22/2017 Pt Lav8457 Mod intensity - 2.0-3.0 02/22/2017 Pt Fvi9155 Hi intensity - 3.0-4.0 02/22/2017 Pt Fru9231 PT 20.1 seconds 02/07/2017 Pt Yty7815 INR 1.7 02/07/2017 Pt Fvp6150 Low Intensity - 1.5-2.0 02/07/2017 Pt Mqp7615 Mod intensity - 2.0-3.0 02/07/2017 Pt Wwb7480 Hi intensity - 3.0-4.0 02/07/2017 Culture Urine [id number] URINE CULTURE SEE NOTES 01/10/2017 Culture Urine [id number] Continued Results 01/10/2017 Urine Culture Ucult Complete >100,000 col/ml aerobic growth sent to ref lab 01/08/2017 Valproic Acid (Depakote) S 212692 VALPROIC ACID 20.3 ug/mL 01/08/2017 Tsh Ord6 hTSH II 2.50 uIU/mL 01/07/2017 Cbc With Differential Ord2 WBC 4.94 K/ul 01/07/2017 Cbc With Differential Ord2 RBC 4.93 M/ul 01/07/2017 Cbc With Differential Ord2 HGB 15.8 g/dl 01/07/2017 Cbc With Differential Ord2 HCT 48.3 % 01/07/2017 Cbc With Differential Ord2 Neut% 67.3 % 01/07/2017 Cbc With Differential Ord2 MCV 98.0 fl 01/07/2017 Cbc With Differential Ord2 Lymph% 19.6 % 01/07/2017 Cbc With Differential Ord2 MCH 32.0 pg 01/07/2017 Cbc With Differential Ord2 Bacon% 10.5 % 01/07/2017 Cbc With Differential Ord2 MCHC 32.7 pg 01/07/2017 Cbc With Differential Ord2 Eos% 2.4 % 01/07/2017 Cbc With Differential Ord2 PLT 210 K/ul 01/07/2017 Cbc With Differential Ord2 Baso% 0.2 % 01/07/2017 Cbc With Differential Ord2 RDW 14.3 % 01/07/2017 Cbc With Differential Ord2 Neut ABS# 3.32 K/ul 01/07/2017 Cbc With Differential Ord2 Lymph ABS# 0.97 K/ul 01/07/2017 Cbc With Differential Ord2 Bacon ABS# 0.5 K/ul 01/07/2017 Cbc With Differential Ord2 Eos ABS# 0.1 K/ul 01/07/2017 Cbc With Differential Ord2 Baso ABS# 0.0 K/ul 01/07/2017 Comp Metabolic Kqq637 NA 142 mEq/L 01/07/2017 Comp Metabolic Xfv234 K 4.0 mEq/L 01/07/2017 Comp Metabolic Aps262 CL 105 mEq/L 01/07/2017 Comp Metabolic Jge351 CO2 24.0 mEq/L 01/07/2017 Comp Metabolic Qgm367 ANION GAP 17 01/07/2017 Comp Metabolic Cxm200 GLUCOSE 81 mg/dL 01/07/2017 Comp Metabolic Hso864 Creat 0.8 mg/dL 01/07/2017 Comp Metabolic Wgz026 eGFR 72 ml/min/1.73m2 01/07/2017 Comp Metabolic Fto252 BUN 12 mg/dL 01/07/2017 Comp Metabolic Pqv809 B/C Ratio 15.0 Ratio 01/07/2017 Comp Metabolic Mls510 CALCIUM 9.0 mg/dL 01/07/2017 Comp Metabolic Shr445 ALK PHOS 59 U/L 01/07/2017 Comp Metabolic Far275 AST(SGOT) 18 U/L 01/07/2017 Comp Metabolic Dbb095 ALT(SGPT) 11 U/L 01/07/2017 Comp Metabolic Idn518 BILI T 0.6 mg/dL 01/07/2017 Comp Metabolic Bjz382 ALBUMIN 3.6 g/dL 01/07/2017 Comp Metabolic Kyw530 TPRO 6.7 g/dL 01/07/2017 Comp Metabolic Uqq322 GLOB 3.1 g/dL 01/07/2017 Comp Metabolic Cry566 A/G Ratio 1.2 Ratio 01/07/2017 Comp Metabolic Wmk937 Osmo 282 mOsmo 01/07/2017 Pt Olv6886 PT 19.5 seconds 01/07/2017 Pt Laj3995 INR 1.7 01/07/2017 Pt Htm0739 Low Intensity - 1.5-2.0 01/07/2017 Pt Ksr9942 Mod intensity - 2.0-3.0 01/07/2017 Pt Aqw5406 Hi intensity - 3.0-4.0 01/07/2017 Pt Pwk1158 PT 22.5 seconds 12/06/2016 Pt Nbv9881 INR 2.1 12/06/2016 Pt Tuq2910 Low Intensity - 1.5-2.0 12/06/2016 Pt Lhh8216 Mod intensity - 2.0-3.0 12/06/2016 Pt Umf9256 Hi intensity - 3.0-4.0 12/06/2016 Pt Rej8729 PT 20.8 seconds 10/29/2016 Pt Voc3787 INR 1.9 10/29/2016 Pt Tfb2564 Low Intensity - 1.5-2.0 10/29/2016 Pt Vkd3837 Mod intensity - 2.0-3.0 10/29/2016 Pt Dgw3250 Hi intensity - 3.0-4.0 10/29/2016 Pt Ken8799 PT 21.9 seconds 09/24/2016 Pt Plh7496 INR 2.0 09/24/2016 Pt Ngk0284 Low Intensity - 1.5-2.0 09/24/2016 Pt Vsy7639 Mod intensity - 2.0-3.0 09/24/2016 Pt Ein6949 Hi intensity - 3.0-4.0 09/24/2016 Pt Xwc9299 PT 21.0 seconds 09/10/2016 Pt Rez6365 INR 1.9 09/10/2016 Pt Ezu3890 Low Intensity - 1.5-2.0 09/10/2016 Pt Ufo4514 Mod intensity - 2.0-3.0 09/10/2016 Pt Jha1765 Hi intensity - 3.0-4.0 09/10/2016 Pt Fys0933 PT 22.8 seconds 08/20/2016 Pt Iuy7000 INR 2.1 08/20/2016 Pt Ctg7993 Low Intensity - 1.5-2.0 08/20/2016 Pt Pfq8345 Mod intensity - 2.0-3.0 08/20/2016 Pt Qel8537 Hi intensity - 3.0-4.0 08/20/2016 Pt Vok0757 PT 19.2 seconds 08/02/2016 Pt Shs0322 INR 1.7 08/02/2016 Pt Gel5140 Low Intensity - 1.5-2.0 08/02/2016 Pt Yhb2754 Mod intensity - 2.0-3.0 08/02/2016 Pt Kxj8887 Hi intensity - 3.0-4.0 08/02/2016 Pt Nma3175 PT 31.2 seconds 07/12/2016 Pt Hdu6455 INR 3.2 07/12/2016 Pt Cki0216 Low Intensity - 1.5-2.0 07/12/2016 Pt Fpe1331 Mod intensity - 2.0-3.0 07/12/2016 Pt Fgb7098 Hi intensity - 3.0-4.0 07/12/2016 Pt Tnd8093 PT 20.3 seconds 07/05/2016 Pt Ylu6004 INR 1.8 07/05/2016 Pt Ono0395 Low Intensity - 1.5-2.0 07/05/2016 Pt Mdb8296 Mod intensity - 2.0-3.0 07/05/2016 Pt Ktp1780 Hi intensity - 3.0-4.0 07/05/2016 Pt Ehs9636 PT 22.2 seconds 05/29/2016 Pt Pef1472 INR 2.1 05/29/2016 Pt Bwa2940 Low Intensity - 1.5-2.0 05/29/2016 Pt Ybp9909 Mod intensity - 2.0-3.0 05/29/2016 Pt Efo4045 Hi intensity - 3.0-4.0 05/29/2016 Tsh Ord6 hTSH II 3.38 uIU/mL 04/25/2016 Comp Metabolic Nhg582 NA 138 mEq/L 04/25/2016 Comp Metabolic Xpn199 K 4.1 mEq/L 04/25/2016 Comp Metabolic Ifv082 CL 105 mEq/L 04/25/2016 Comp Metabolic Oer830 CO2 25.0 mEq/L 04/25/2016 Comp Metabolic Kml240 ANION GAP 12 04/25/2016 Comp Metabolic Tzr539 GLUCOSE 89 mg/dL 04/25/2016 Comp Metabolic Sri263 Creat 0.8 mg/dL 04/25/2016 Comp Metabolic Aex319 eGFR 71 ml/min/1.73m2 04/25/2016 Comp Metabolic Jms385 BUN 14 mg/dL 04/25/2016 Comp Metabolic Kme434 B/C Ratio 17.3 Ratio 04/25/2016 Comp Metabolic Aic214 CALCIUM 9.0 mg/dL 04/25/2016 Comp Metabolic Rhr127 ALK PHOS 63 U/L 04/25/2016 Comp Metabolic Bgf108 AST(SGOT) 15 U/L 04/25/2016 Comp Metabolic Cew382 ALT(SGPT) 9 U/L 04/25/2016 Comp Metabolic Oak559 BILI T 0.4 mg/dL 04/25/2016 Comp Metabolic Mnm716 ALBUMIN 3.7 g/dL 04/25/2016 Comp Metabolic Pto768 TPRO 6.4 g/dL 04/25/2016 Comp Metabolic Fgw098 GLOB 2.7 g/dL 04/25/2016 Comp Metabolic Ias742 A/G Ratio 1.4 Ratio 04/25/2016 Comp Metabolic Eiw320 Osmo 276 mOsmo 04/25/2016 Valproic Acid Hnn953 VALPROIC 17.0 ug/ml 04/25/2016 Cbc With Differential Ord2 WBC 4.98 K/ul 04/25/2016 Cbc With Differential Ord2 RBC 4.68 M/ul 04/25/2016 Cbc With Differential Ord2 HGB 15.2 g/dl 04/25/2016 Cbc With Differential Ord2 HCT 46.3 % 04/25/2016 Cbc With Differential Ord2 Neut% 59.3 % 04/25/2016 Cbc With Differential Ord2 MCV 98.9 fl 04/25/2016 Cbc With Differential Ord2 Lymph% 25.9 % 04/25/2016 Cbc With Differential Ord2 MCH 32.5 pg 04/25/2016 Cbc With Differential Ord2 Bacon% 12.4 % 04/25/2016 Cbc With Differential Ord2 MCHC 32.8 pg 04/25/2016 Cbc With Differential Ord2 Eos% 2.2 % 04/25/2016 Cbc With Differential Ord2 PLT 203 K/ul 04/25/2016 Cbc With Differential Ord2 Baso% 0.2 % 04/25/2016 Cbc With Differential Ord2 RDW 14.1 % 04/25/2016 Cbc With Differential Ord2 Neut ABS# 2.95 K/ul 04/25/2016 Cbc With Differential Ord2 Lymph ABS# 1.29 K/ul 04/25/2016 Cbc With Differential Ord2 Bacon ABS# 0.6 K/ul 04/25/2016 Cbc With Differential Ord2 Eos ABS# 0.1 K/ul 04/25/2016 Cbc With Differential Ord2 Baso ABS# 0.0 K/ul 04/25/2016 Pt Kgu4133 PT 21.9 seconds 04/25/2016 Pt Ntp1814 INR 2.0 04/25/2016 Pt Ohj9844 Low Intensity - 1.5-2.0 04/25/2016 Pt Pah5129 Mod intensity - 2.0-3.0 04/25/2016 Pt Iwm0297 Hi intensity - 3.0-4.0 04/25/2016 Pt Yrm4710 PT 24.4 seconds 03/27/2016 Pt Hqs7579 INR 2.3 03/27/2016 Pt Mzj9719 Low Intensity - 1.5-2.0 03/27/2016 Pt Trs4017 Mod intensity - 2.0-3.0 03/27/2016 Pt Vfy4659 Hi intensity - 3.0-4.0 03/27/2016 Pt Fuf9572 PT 22.7 seconds 02/24/2016 Pt Dba6223 INR 2.1 02/24/2016 Pt Qse4208 Low Intensity - 1.5-2.0 02/24/2016 Pt Pan2414 Mod intensity - 2.0-3.0 02/24/2016 Pt Bwa2526 Hi intensity - 3.0-4.0 02/24/2016 Pt Gpf7591 PT 24.2 seconds 02/10/2016 Pt Dpz6719 INR 2.3 02/10/2016 Pt Uzl2919 Low Intensity - 1.5-2.0 02/10/2016 Pt Yhv9015 Mod intensity - 2.0-3.0 02/10/2016 Pt Bus7099 Hi intensity - 3.0-4.0 02/10/2016 Pt Svm0674 PT 15.7 seconds 01/26/2016 Pt Yjl8714 INR 1.3 01/26/2016 Pt Gpz1125 Low Intensity - 1.5-2.0 01/26/2016 Pt Gmo8247 Mod intensity - 2.0-3.0 01/26/2016 Pt Yer4463 Hi intensity - 3.0-4.0 01/26/2016 Pt Rwv4506 PT 22.0 seconds 01/02/2016 Pt Hje0993 INR 2.0 01/02/2016 Pt Hzu0791 Low Intensity - 1.5-2.0 01/02/2016 Pt Tvf7828 Mod intensity - 2.0-3.0 01/02/2016 Pt Ekb0209 Hi intensity - 3.0-4.0 01/02/2016 Pt Mua6518 PT 21.9 seconds 11/30/2015 Pt Hll9639 INR 2.0 11/30/2015 Pt Rrf7612 Low Intensity - 1.5-2.0 11/30/2015 Pt Nzb2680 Mod intensity - 2.0-3.0 11/30/2015 Pt Lte6201 Hi intensity - 3.0-4.0 11/30/2015 Pt Uqm9977 PT 20.0 seconds 10/28/2015 Pt Orw0333 INR 1.8 10/28/2015 Pt Tas1329 Low Intensity - 1.5-2.0 10/28/2015 Pt Rwb4870 Mod intensity - 2.0-3.0 10/28/2015 Pt Wwo7366 Hi intensity - 3.0-4.0 10/28/2015 Cbc With Differential Ord2 WBC 5.50 K/ul 09/19/2015 Cbc With Differential Ord2 RBC 4.48 M/ul 09/19/2015 Cbc With Differential Ord2 HGB 14.4 g/dl 09/19/2015 Cbc With Differential Ord2 HCT 42.6 % 09/19/2015 Cbc With Differential Ord2 Neut% 69.0 % 09/19/2015 Cbc With Differential Ord2 MCV 95.1 fl 09/19/2015 Cbc With Differential Ord2 Lymph% 17.8 % 09/19/2015 Cbc With Differential Ord2 MCH 32.2 pg 09/19/2015 Cbc With Differential Ord2 Bacon% 11.4 % 09/19/2015 Cbc With Differential Ord2 MCHC 33.9 pg 09/19/2015 Cbc With Differential Ord2 Eos% 1.4 % 09/19/2015 Cbc With Differential Ord2 PLT 200 K/ul 09/19/2015 Cbc With Differential Ord2 Baso% 0.4 % 09/19/2015 Cbc With Differential Ord2 Neut ABS# 3.45 K/ul 09/19/2015 Cbc With Differential Ord2 RDW 13.7 % 09/19/2015 Cbc With Differential Ord2 Lymph ABS# 0.89 K/ul 09/19/2015 Cbc With Differential Ord2 Bacon ABS# 0.6 K/ul 09/19/2015 Cbc With Differential Ord2 Eos ABS# 0.1 K/ul 09/19/2015 Cbc With Differential Ord2 Baso ABS# 0.0 K/ul 09/19/2015 Cbc With Differential Ord2 New Analyzer Notice Please note new ref ranges starting 06-29-2015 due to implemntation of new five part differential hematolgy analyzer. 09/19/2015 Pt Vvk8752 PT 28.3 seconds 09/19/2015 Pt Bgv8033 INR 2.8 09/19/2015 Pt Uxd9675 Low Intensity - 1.5-2.0 09/19/2015 Pt Rwu4440 Mod intensity - 2.0-3.0 09/19/2015 Pt Vrc3428 Hi intensity - 3.0-4.0 09/19/2015 Pt Zaj0120 PT 22.5 seconds 08/12/2015 Pt Lpt4142 INR 2.1 08/12/2015 Pt Fib7350 Low Intensity - 1.5-2.0 08/12/2015 Pt Xqe8497 Mod intensity - 2.0-3.0 08/12/2015 Pt Jqx8935 Hi intensity - 3.0-4.0 08/12/2015 Pt Fyy2493 PT 34.1 seconds 07/29/2015 Pt Gob3031 INR 3.5 07/29/2015 Pt Vsi6921 Low Intensity - 1.5-2.0 07/29/2015 Pt Ooc4384 Mod intensity - 2.0-3.0 07/29/2015 Pt Zeg6008 Hi intensity - 3.0-4.0 07/29/2015 Tsh Ord6 hTSH II 2.48 uIU/mL 06/29/2015 Pt Wvc1319 PT 14.2 seconds 06/29/2015 Pt Bji5984 INR 1.1 06/29/2015 Pt Vmu8997 Low Intensity - 1.5-2.0 06/29/2015 Pt Xtf3434 Mod intensity - 2.0-3.0 06/29/2015 Pt Fxj2147 Hi intensity - 3.0-4.0 06/29/2015 Comp Metabolic Wul580 NA 139 mEq/L 06/29/2015 Comp Metabolic Vme097 K 3.8 mEq/L 06/29/2015 Comp Metabolic Yta489 CL 105 mEq/L 06/29/2015 Comp Metabolic Oea427 CO2 21.0 mEq/L 06/29/2015 Comp Metabolic Har732 ANION GAP 17 06/29/2015 Comp Metabolic Lxo314 GLUCOSE 78 mg/dL 06/29/2015 Comp Metabolic Xtf060 Creat 0.7 mg/dL 06/29/2015 Comp Metabolic Tas670 eGFR 86 ml/min/1.73m2 06/29/2015 Comp Metabolic Ipo008 BUN 7 mg/dL 06/29/2015 Comp Metabolic Sew430 B/C Ratio 10.1 Ratio 06/29/2015 Comp Metabolic Wua584 CALCIUM 9.3 mg/dL 06/29/2015 Comp Metabolic Ysg178 ALK PHOS 84 U/L 06/29/2015 Comp Metabolic Fdk075 AST(SGOT) 17 U/L 06/29/2015 Comp Metabolic Pqp935 ALT(SGPT) 10 U/L 06/29/2015 Comp Metabolic Huu302 BILI T 1.0 mg/dL 06/29/2015 Comp Metabolic Tzs038 ALBUMIN 4.1 g/dL 06/29/2015 Comp Metabolic Owu047 TPRO 7.0 g/dL 06/29/2015 Comp Metabolic Psl084 GLOB 2.9 g/dL 06/29/2015 Comp Metabolic Oje633 A/G Ratio 1.4 Ratio 06/29/2015 Comp Metabolic Luj283 Osmo 274 mOsmo 06/29/2015 CBC With Differential * WBC 4.8 K/uL 06/29/2015 CBC With Differential * LYM 1.2 K/uL 06/29/2015 CBC With Differential * LYM% 25.8 % 06/29/2015 CBC With Differential * NEUT/GRAN 3.1 K/uL 06/29/2015 CBC With Differential * NEUT/GRAN % 64.8 % 06/29/2015 CBC With Differential * MID 0.5 K/uL 06/29/2015 CBC With Differential * MID% 9.4 % 06/29/2015 CBC With Differential * RBC 4.96 M/uL 06/29/2015 CBC With Differential * HGB 15.4 g/dL 06/29/2015 CBC With Differential * HCT 49.4 % 06/29/2015 CBC With Differential * MCV 100 fL 06/29/2015 CBC With Differential * MCH 31 pg 06/29/2015 CBC With Differential * MCHC 31 g/dL 06/29/2015 CBC With Differential * PLT 243 K/uL 06/29/2015 CBC With Differential * RDW 13.9 % 06/29/2015 Lipid Ord30 CHOL 205 mg/dL 06/29/2015 Lipid Ord30 HDL 59.0 mg/dl 06/29/2015 Lipid Ord30 TRIG 118 mg/dL 06/29/2015 Lipid Ord30 LDL 122 mg/dL 06/29/2015 Lipid Ord30 C/HDL 3.5 Ratio 06/29/2015 Pt [id number] PT 25.9 seconds 05/16/2015 Pt Qqp9049 INR 2.5 05/16/2015 Pt Zmz2956 Low Intensity - 1.5-2.0 05/16/2015 Pt Emq0134 Mod intensity - 2.0-3.0 05/16/2015 Pt Vau9610 Hi intensity - 3.0-4.0 05/16/2015 Pt Mht7319 PT 28.2 seconds 04/19/2015 Pt Dlc4002 INR 2.7 04/19/2015 Pt Mte9256 Low Intensity - 1.5-2.0 04/19/2015 Pt Lfa8641 Mod intensity - 2.0-3.0 04/19/2015 Pt Bln6891 Hi intensity - 3.0-4.0 04/19/2015 Pt Hqx2626 PT 29.7 seconds 02/17/2015 Pt Cgj7818 INR 2.9 02/17/2015 Pt Dhg0273 Low Intensity - 1.5-2.0 02/17/2015 Pt Plx6295 Mod intensity - 2.0-3.0 02/17/2015 Pt Jjf7501 Hi intensity - 3.0-4.0 02/17/2015 Cbc With Differential Ord2 WBC 5.4 K/uL 02/07/2015 Cbc With Differential Ord2 LYM 1.3 K/uL 02/07/2015 Cbc With Differential Ord2 LYM% 24.9 % 02/07/2015 Cbc With Differential Ord2 NEUT/GRAN 3.7 K/uL 02/07/2015 Cbc With Differential Ord2 NEUT/GRAN % 68.5 % 02/07/2015 Cbc With Differential Ord2 MID 0.4 K/uL 02/07/2015 Cbc With Differential Ord2 MID% 6.6 % 02/07/2015 Cbc With Differential Ord2 RBC 4.83 M/uL 02/07/2015 Cbc With Differential Ord2 HGB 15.1 g/dL 02/07/2015 Cbc With Differential Ord2 HCT 46.6 % 02/07/2015 Cbc With Differential Ord2 MCV 96 fL 02/07/2015 Cbc With Differential Ord2 MCH 31 pg 02/07/2015 Cbc With Differential Ord2 MCHC 32 g/dL 02/07/2015 Cbc With Differential Ord2 PLT 283 K/uL 02/07/2015 Cbc With Differential Ord2 RDW 14.5 % 02/07/2015 Pt Gkt3186 PT 26.8 seconds 02/07/2015 Pt Mrs0749 INR 2.6 02/07/2015 Pt Gli1424 Low Intensity - 1.5-2.0 02/07/2015 Pt Lwf2104 Mod intensity - 2.0-3.0 02/07/2015 Pt Orb0341 Hi intensity - 3.0-4.0 02/07/2015 Tsh Ord6 hTSH II 2.36 uIU/mL 02/07/2015 Comp Metabolic Lqn762 NA 136 mEq/L 02/07/2015 Comp Metabolic Bwz764 K 4.2 mEq/L 02/07/2015 Comp Metabolic Hjy581 CL 105 mEq/L 02/07/2015 Comp Metabolic Ylq104 CO2 23.0 mEq/L 02/07/2015 Comp Metabolic Lzs592 ANION GAP 12 02/07/2015 Comp Metabolic Uin361 GLUCOSE 129 mg/dL 02/07/2015 Comp Metabolic Qdu893 Creat 0.9 mg/dL 02/07/2015 Comp Metabolic Zpz877 eGFR 67 ml/min/1.73m2 02/07/2015 Comp Metabolic Aln793 BUN 13 mg/dL 02/07/2015 Comp Metabolic Wqz840 B/C Ratio 15.1 Ratio 02/07/2015 Comp Metabolic Ibr554 CALCIUM 9.3 mg/dL 02/07/2015 Comp Metabolic Fua365 ALK PHOS 79 U/L 02/07/2015 Comp Metabolic Ihc555 AST(SGOT) 16 U/L 02/07/2015 Comp Metabolic Gvj989 ALT(SGPT) 10 U/L 02/07/2015 Comp Metabolic Gra506 BILI T 0.5 mg/dL 02/07/2015 Comp Metabolic Hxf482 ALBUMIN 4.0 g/dL 02/07/2015 Comp Metabolic Sue484 TPRO 6.9 g/dL 02/07/2015 Comp Metabolic Goq195 GLOB 2.9 g/dL 02/07/2015 Comp Metabolic Ffx915 A/G Ratio 1.4 Ratio 02/07/2015 Comp Metabolic Uwh898 Osmo 274 mOsmo 02/07/2015 Pt Ecq6900 PT 27.9 seconds 02/04/2015 Pt Wps1256 INR 2.7 02/04/2015 Pt [id number] Low Intensity - 1.5-2.0 02/04/2015 Pt [id number] Mod intensity - 2.0-3.0 02/04/2015 Pt [id number] Hi intensity - 3.0-4.0 02/04/2015 Pt [id number] PT 17.2 seconds 01/25/2015 Pt [id number] INR 1.4 01/25/2015 Pt [id number] Low Intensity - 1.5-2.0 01/25/2015 Pt [id number] Mod intensity - 2.0-3.0 01/25/2015 Pt [id number] Hi intensity - 3.0-4.0 01/25/2015 Pt [id number] PT 20.7 seconds 12/23/2014 Pt [id number] INR 1.8 12/23/2014 Pt [id number] Low Intensity - 1.5-2.0 12/23/2014 Pt [id number] Mod intensity - 2.0-3.0 12/23/2014 Pt [id number] Hi intensity - 3.0-4.0 12/23/2014 PT/MC [id number] PRO TIME 24.9 SEC 08/27/2012 PT/MC [id number] INR MCMC 2.2 08/27/2012 PT/MC [id number] PRO TIME 31.1 SEC 05/13/2012 PT/MC [id number] INR MCMC 3.0 05/13/2012 GFR CALC [id number] GFR AA >60 ML/MIN 04/30/2012 GFR CALC [id number] GFR NON-AA >60 ML/MIN 04/30/2012 CHEM 14 [id number] AST 16 U/L 04/30/2012 CHEM 14 [id number] ALT 9 IU/L 04/30/2012 CHEM 14 [id number] BUN 7 MG/DL 04/30/2012 CHEM 14 [id number] ALBUMIN 4.0 GM/DL 04/30/2012 CHEM 14 [id number] CHLORIDE 107 MMOL/L 04/30/2012 CHEM 14 [id number] BILI TOT 0.7 MG/DL 04/30/2012 CHEM 14 [id number] ALK PHOS 68 U/L 04/30/2012 CHEM 14 [id number] SODIUM 142 MMOL/L 04/30/2012 CHEM 14 [id number] CREATININE 0.80 MG/DL 04/30/2012 CHEM 14 [id number] CALCIUM 9.5 MG/DL 04/30/2012 CHEM 14 [id number] POTASSIUM 3.7 MMOL/L 04/30/2012 CHEM 14 [id number] PROT TOT 7.1 GM/DL 04/30/2012 CHEM 14 [id number] GLUCOSE 88 MG/DL 04/30/2012 CHEM 14 [id number] BICARB 27 MMOL/L 04/30/2012 CHEM 14 [id number] ANION GAP 8 MEQ/L 04/30/2012 PT/MC [id number] PRO TIME 18.5 SEC 04/30/2012 PT/MC [id number] INR MCMC 1.5 04/30/2012 TSH [id number] TSH 3.019 uIU/ML 04/30/2012 CBC [id number] WBC 4.0 10e9/L 04/30/2012 CBC [id number] RBC 4.94 10e12/L 04/30/2012 CBC [id number] HGB 15.7 g/dL 04/30/2012 CBC [id number] HCT DET 47.5 % 04/30/2012 CBC [id number] MCV 96.2 fL 04/30/2012 CBC [id number] MCH 31.8 pg 04/30/2012 CBC [id number] MCHC 33.1 g/dL 04/30/2012 CBC [id number] PLT 226 10e9/L 04/30/2012 CBC [id number] MPV 10.9 fL 04/30/2012 CBC [id number] KOBY % 64.8 % 04/30/2012 CBC [id number] LY % 22.1 % 04/30/2012 CBC [id number] MON % 9.5 % 04/30/2012 CBC [id number] EOS % 3.3 % 04/30/2012 CBC [id number] BASO % 0.3 % 04/30/2012 CBC [id number] RDW 13.5 % 04/30/2012 CBC [id number] ABS KOBY 2.59 10e9/L 04/30/2012 CBC [id number] ABS LYMPH 0.88 10e9/L 04/30/2012 CBC [id number] ABS MONO 0.38 10e9/L 04/30/2012 CBC [id number] ABS EOS 0.13 10e9/L 04/30/2012 CBC [id number] ABS BASO 0.01 10e9/L 04/30/2012 CBC [id number] RDW-SD 46.5 fL 04/30/2012 LIPID GRP HDL TEST 47 MG/DL 04/30/2012 LIPID GRP TRIG 131 MG/DL 04/30/2012 LIPID GRP TEST LDL 145 MG/DL 04/30/2012 LIPID GRP CHOL 218 MG/DL 04/30/2012 LIPID GRP RCHOL/HDL 4.64 RATIO 04/30/2012 Review of Systems System Result Effective Dates Constitutional No recent illness 2018 Constitutional No anorexia 08/19/2018 Constitutional No night sweats 2018 Constitutional No chills 08/19/2018 Constitutional No diaphoresis 08/19/2018 Constitutional No fatigue 08/19/2018 Constitutional No fever 08/19/2018 Constitutional No insomnia 08/19/2018 Constitutional malaise 08/19/2018 Eyes No vision change 08/19/2018 Ears/Nose/Throat/Neck No headache 2018 Cardiovascular No chest pain/pressure 10/2018 Cardiovascular No dyspnea 08/19/2018 Cardiovascular edema 08/19/2018 Cardiovascular hypertension 08/19/2018 Respiratory No productive sputum 2018 Respiratory No chest congestion 2018 Respiratory No cough 08/19/2018 Gastrointestinal No abdominal pain 2018 Gastrointestinal constipation 08/19/2018 Gastrointestinal No diarrhea 08/19/2018 Genitourinary/Nephrology No dysuria 08/19 Genitourinary/Nephrology No urinary urgency 08/19/2018 Genitourinary/Nephrology No urinary frequency 08/19/2018 Genitourinary/Nephrology No urinary incontinence 08/19/2018 Musculoskeletal back pain 08/19/2018 Musculoskeletal joint complaint 2018 Musculoskeletal muscle weakness 2018 Dermatologic No rash 08/19/2018 Neurologic No alteration of consciousness 08/19/2018 Neurologic gait abnormality 08/19/2018 Neurologic memory loss 08/19/2018 Psychiatric No anxiety 08/19/2018 Psychiatric No depression 08/19/2018 Constitutional No recent illness 2017 Constitutional No anorexia 02/14/2018 Constitutional No night sweats 2017 Constitutional No chills 02/14/2018 Constitutional No diaphoresis 02/14/2018 Constitutional No fatigue 02/14/2018 Constitutional No fever 02/14/2018 Constitutional No insomnia 02/14/2018 Constitutional malaise 02/14/2018 Eyes No vision change 02/14/2018 Ears/Nose/Throat/Neck No headache 2017 Cardiovascular No chest pain/pressure Cardiovascular No dyspnea 02/14/2018 Cardiovascular edema 02/14/2018 Cardiovascular hypertension 02/14/2018 Respiratory No productive sputum 2017 Respiratory No chest congestion 2017 Respiratory No cough 02/14/2018 Gastrointestinal No abdominal pain 2017 Gastrointestinal constipation 02/14/2018 Gastrointestinal No diarrhea 02/14/2018 Genitourinary/Nephrology No dysuria 02/14 Genitourinary/Nephrology No urinary urgency 02/14/2018 Genitourinary/Nephrology No urinary frequency 02/14/2018 Genitourinary/Nephrology No urinary incontinence 02/14/2018 Musculoskeletal back pain 02/14/2018 Musculoskeletal joint complaint 2017 Musculoskeletal muscle weakness 2017 Dermatologic No rash 02/14/2018 Neurologic No alteration of consciousness 02/14/2018 Neurologic gait abnormality 02/14/2018 Neurologic memory loss 02/14/2018 Psychiatric No anxiety 02/14/2018 Psychiatric No depression 02/14/2018 Constitutional No recent illness 2017 Constitutional No chills 11/14/2017 Constitutional No diaphoresis 11/14/2017 Constitutional No fever 11/14/2017 Eyes No vision change 11/14/2017 Ears/Nose/Throat/Neck No headache 2017 Cardiovascular No chest pain/pressure Cardiovascular No dyspnea 11/14/2017 Cardiovascular hypertension 11/14/2017 Respiratory No productive sputum 2017 Respiratory No chest congestion 2017 Respiratory No cough 11/14/2017 Gastrointestinal No abdominal pain 2017 Gastrointestinal No constipation 2017 Gastrointestinal No diarrhea 11/14/2017 Genitourinary/Nephrology No dysuria 11/14 Musculoskeletal back pain 11/14/2017 Musculoskeletal joint complaint 2017 Musculoskeletal muscle weakness 2017 Neurologic No alteration of consciousness 11/14/2017 Neurologic gait abnormality 11/14/2017 Neurologic memory loss 11/14/2017 Dermatologic No rash 11/14/2017 Constitutional No recent illness 2017 Constitutional No chills 08/13/2017 Constitutional No diaphoresis 08/13/2017 Constitutional No fever 08/13/2017 Eyes No vision change 08/13/2017 Ears/Nose/Throat/Neck No headache 2017 Cardiovascular No chest pain/pressure Cardiovascular No dyspnea 08/13/2017 Cardiovascular edema 08/13/2017 Cardiovascular hypertension 08/13/2017 Respiratory No productive sputum 2017 Respiratory No chest congestion 2017 Respiratory No cough 08/13/2017 Gastrointestinal No abdominal pain 2017 Gastrointestinal No constipation 2017 Gastrointestinal No diarrhea 08/13/2017 Genitourinary/Nephrology No dysuria 08/13 Musculoskeletal back pain 08/13/2017 Musculoskeletal joint complaint 2017 Musculoskeletal muscle weakness 2017 Dermatologic ecchymosis 08/13/2017 Neurologic No alteration of consciousness 08/13/2017 Neurologic gait abnormality 08/13/2017 Neurologic memory loss 08/13/2017 Constitutional No recent illness 2016 Constitutional No chills 05/21/2017 Constitutional No diaphoresis 05/21/2017 Constitutional No fever 05/21/2017 Eyes No vision change 05/21/2017 Ears/Nose/Throat/Neck No headache 2016 Cardiovascular No chest pain/pressure 10/2016 Cardiovascular No dyspnea 05/21/2017 Cardiovascular edema 05/21/2017 Cardiovascular hypertension 05/21/2017 Respiratory No productive sputum 2016 Respiratory No chest congestion 2016 Respiratory No cough 05/21/2017 Gastrointestinal No abdominal pain 2016 Gastrointestinal No diarrhea 05/21/2017 Musculoskeletal back pain 05/21/2017 Musculoskeletal joint complaint 2016 Musculoskeletal muscle weakness 2016 Neurologic No alteration of consciousness 05/21/2017 Neurologic gait abnormality 05/21/2017 Neurologic memory loss 05/21/2017 Gastrointestinal No constipation 2016 Genitourinary/Nephrology No dysuria 05/21 Dermatologic ecchymosis 05/21/2017 Constitutional No recent illness 2016 Constitutional No chills 05/07/2017 Constitutional No diaphoresis 05/07/2017 Constitutional No fever 05/07/2017 Eyes No vision change 05/07/2017 Ears/Nose/Throat/Neck No headache 2016 Cardiovascular No chest pain/pressure Cardiovascular No dyspnea 05/07/2017 Cardiovascular hypertension 05/07/2017 Respiratory No productive sputum 2016 Respiratory No chest congestion 2016 Respiratory No cough 05/07/2017 Gastrointestinal No abdominal pain 2016 Gastrointestinal No constipation 2016 Gastrointestinal No diarrhea 05/07/2017 Musculoskeletal back pain 05/07/2017 Musculoskeletal joint complaint 2016 Musculoskeletal muscle weakness 2016 Neurologic No alteration of consciousness 05/07/2017 Neurologic memory loss 05/07/2017 Ears/Nose/Throat/Neck No nasal discharge 05/07/2017 Ears/Nose/Throat/Neck No nasal allergies 05/07/2017 Gastrointestinal gastroesophageal reflux 05/07/2017 Gastrointestinal No vomiting 05/07/2017 Gastrointestinal No nausea 05/07/2017 Constitutional No recent illness 2016 Constitutional No anorexia 01/08/2017 Constitutional No night sweats 2016 Constitutional No chills 01/08/2017 Constitutional No diaphoresis 01/08/2017 Constitutional No fatigue 01/08/2017 Constitutional No fever 01/08/2017 Constitutional No insomnia 01/08/2017 Constitutional malaise 01/08/2017 Eyes No vision change 01/08/2017 Ears/Nose/Throat/Neck No headache 2016 Cardiovascular No chest pain/pressure Cardiovascular No dyspnea 01/08/2017 Cardiovascular edema 01/08/2017 Cardiovascular hypertension 01/08/2017 Respiratory No productive sputum 2016 Respiratory No chest congestion 2016 Respiratory No cough 01/08/2017 Gastrointestinal No abdominal pain 2016 Gastrointestinal constipation 01/08/2017 Gastrointestinal No diarrhea 01/08/2017 Genitourinary/Nephrology No dysuria 01/08 Genitourinary/Nephrology No urinary urgency 01/08/2017 Genitourinary/Nephrology No urinary frequency 01/08/2017 Genitourinary/Nephrology No urinary incontinence 01/08/2017 Musculoskeletal back pain 01/08/2017 Musculoskeletal joint complaint 2016 Musculoskeletal muscle weakness 2016 Dermatologic No rash 01/08/2017 Dermatologic sores 01/08/2017 Neurologic No alteration of consciousness 01/08/2017 Neurologic gait abnormality 01/08/2017 Neurologic memory loss 01/08/2017 Psychiatric No anxiety 01/08/2017 Psychiatric No depression 01/08/2017 Constitutional No chills 01/07/2017 Constitutional No diaphoresis 01/07/2017 Constitutional No fever 01/07/2017 Eyes No eye erythema 01/07/2017 Ears/Nose/Throat/Neck No nasal allergies 01/07/2017 Ears/Nose/Throat/Neck No nasal discharge 01/07/2017 Cardiovascular No chest pain/pressure Cardiovascular No dyspnea 01/07/2017 Respiratory No cough 01/07/2017 Respiratory No dyspnea 01/07/2017 Gastrointestinal No abdominal pain 2016 Genitourinary/Nephrology dysuria 2016 Musculoskeletal No joint complaint 2016 Neurologic No alteration of consciousness 01/07/2017 Neurologic memory loss 01/07/2017 Constitutional No recent illness 2016 Constitutional No anorexia 11/07/2016 Constitutional No night sweats 2016 Constitutional No chills 11/07/2016 Constitutional No diaphoresis 11/07/2016 Constitutional No fatigue 11/07/2016 Constitutional No fever 11/07/2016 Constitutional No insomnia 11/07/2016 Constitutional malaise 11/07/2016 Ears/Nose/Throat/Neck No headache 2016 Cardiovascular No chest pain/pressure Cardiovascular No dyspnea 11/07/2016 Cardiovascular edema 11/07/2016 Cardiovascular hypertension 11/07/2016 Respiratory No productive sputum 2016 Respiratory No chest congestion 2016 Respiratory No cough 11/07/2016 Gastrointestinal No abdominal pain 2016 Gastrointestinal No diarrhea 11/07/2016 Genitourinary/Nephrology No dysuria 11/07 Musculoskeletal back pain 11/07/2016 Musculoskeletal joint complaint 2016 Musculoskeletal muscle weakness 2016 Dermatologic No rash 11/07/2016 Dermatologic sores 11/07/2016 Neurologic No alteration of consciousness 11/07/2016 Psychiatric No anxiety 11/07/2016 Psychiatric No depression 11/07/2016 Gastrointestinal constipation 11/07/2016 Eyes No vision change 11/07/2016 Genitourinary/Nephrology No urinary urgency 11/07/2016 Genitourinary/Nephrology No urinary frequency 11/07/2016 Genitourinary/Nephrology No urinary incontinence 11/07/2016 Neurologic memory loss 11/07/2016 Neurologic dizziness 11/07/2016 Neurologic gait abnormality 11/07/2016 Constitutional No recent illness 2016 Constitutional No anorexia 07/26/2016 Constitutional No night sweats 2016 Constitutional No chills 07/26/2016 Constitutional No diaphoresis 07/26/2016 Constitutional No fatigue 07/26/2016 Constitutional No fever 07/26/2016 Constitutional No insomnia 07/26/2016 Constitutional malaise 07/26/2016 Eyes No eye discharge 07/26/2016 Eyes No eye erythema 07/26/2016 Ears/Nose/Throat/Neck No headache 2016 Cardiovascular No chest pain/pressure 02/2017 Cardiovascular No dyspnea 07/26/2016 Cardiovascular edema 07/26/2016 Respiratory No productive sputum 2016 Respiratory No chest congestion 2016 Respiratory No cough 07/26/2016 Gastrointestinal No abdominal pain 2016 Gastrointestinal No diarrhea 07/26/2016 Genitourinary/Nephrology No dysuria 07/26 Musculoskeletal back pain 07/26/2016 Musculoskeletal joint complaint 2016 Musculoskeletal muscle weakness 2016 Musculoskeletal sciatica 07/26/2016 Dermatologic No rash 07/26/2016 Dermatologic No sores 07/26/2016 Neurologic No alteration of consciousness 07/26/2016 Psychiatric No anxiety 07/26/2016 Psychiatric No depression 07/26/2016 Cardiovascular hypertension 07/26/2016 Constitutional No recent illness 2015 Constitutional No anorexia 04/25/2016 Constitutional No night sweats 2015 Constitutional No chills 04/25/2016 Constitutional No diaphoresis 04/25/2016 Constitutional No fatigue 04/25/2016 Constitutional No fever 04/25/2016 Constitutional No insomnia 04/25/2016 Constitutional malaise 04/25/2016 Eyes No eye discharge 04/25/2016 Eyes No eye erythema 04/25/2016 Ears/Nose/Throat/Neck No headache 2015 Cardiovascular No chest pain/pressure 02/2016 Cardiovascular No dyspnea 04/25/2016 Cardiovascular edema 04/25/2016 Respiratory No productive sputum 2015 Respiratory No chest congestion 2015 Respiratory No cough 04/25/2016 Gastrointestinal No abdominal pain 2015 Gastrointestinal No diarrhea 04/25/2016 Genitourinary/Nephrology No dysuria 04/25 Musculoskeletal back pain 04/25/2016 Musculoskeletal joint complaint 2015 Musculoskeletal muscle weakness 2015 Musculoskeletal sciatica 04/25/2016 Dermatologic No rash 04/25/2016 Dermatologic No sores 04/25/2016 Neurologic No alteration of consciousness 04/25/2016 Psychiatric No anxiety 04/25/2016 Psychiatric No depression 04/25/2016 Constitutional No recent illness 2015 Constitutional No anorexia 10/04/2015 Constitutional No night sweats 2015 Constitutional No chills 10/04/2015 Constitutional No diaphoresis 10/04/2015 Constitutional No fatigue 10/04/2015 Constitutional No fever 10/04/2015 Constitutional No insomnia 10/04/2015 Constitutional malaise 10/04/2015 Eyes No eye discharge 10/04/2015 Eyes No eye erythema 10/04/2015 Ears/Nose/Throat/Neck No headache 2015 Cardiovascular No chest pain/pressure Cardiovascular No dyspnea 10/04/2015 Cardiovascular edema 10/04/2015 Respiratory No productive sputum 2015 Respiratory No chest congestion 2015 Respiratory No cough 10/04/2015 Gastrointestinal No abdominal pain 2015 Gastrointestinal constipation 10/04/2015 Gastrointestinal No diarrhea 10/04/2015 Genitourinary/Nephrology No dysuria 10/03 Musculoskeletal back pain 10/04/2015 Musculoskeletal joint complaint 2015 Musculoskeletal muscle weakness 2015 Musculoskeletal sciatica 10/04/2015 Dermatologic No rash 10/04/2015 Dermatologic No sores 10/04/2015 Neurologic No alteration of consciousness 10/04/2015 Psychiatric No anxiety 10/04/2015 Psychiatric No depression 10/04/2015 Constitutional No recent illness 2015 Constitutional No anorexia 06/29/2015 Constitutional No night sweats 2015 Constitutional No chills 06/29/2015 Constitutional No diaphoresis 06/29/2015 Constitutional No fatigue 06/29/2015 Constitutional No fever 06/29/2015 Constitutional No insomnia 06/29/2015 Constitutional malaise 06/29/2015 Eyes No eye discharge 06/29/2015 Eyes No eye erythema 06/29/2015 Ears/Nose/Throat/Neck No headache 2015 Cardiovascular No chest pain/pressure Cardiovascular No dyspnea 06/29/2015 Cardiovascular edema 06/29/2015 Respiratory No productive sputum 2015 Respiratory No chest congestion 2015 Respiratory No cough 06/29/2015 Gastrointestinal No abdominal pain 2015 Gastrointestinal constipation 06/29/2015 Gastrointestinal No diarrhea 06/29/2015 Genitourinary/Nephrology No dysuria 06/29 Musculoskeletal back pain 06/29/2015 Musculoskeletal joint complaint 2015 Musculoskeletal muscle weakness 2015 Musculoskeletal sciatica 06/29/2015 Dermatologic No rash 06/29/2015 Dermatologic No sores 06/29/2015 Neurologic No alteration of consciousness 06/29/2015 Psychiatric No anxiety 06/29/2015 Psychiatric No depression 06/29/2015 Constitutional No recent illness 2014 Constitutional No anorexia 02/17/2015 Constitutional No night sweats 2014 Constitutional No chills 02/17/2015 Constitutional No diaphoresis 02/17/2015 Constitutional No fatigue 02/17/2015 Constitutional No fever 02/17/2015 Constitutional No insomnia 02/17/2015 Constitutional malaise 02/17/2015 Eyes No eye discharge 02/17/2015 Eyes No eye erythema 02/17/2015 Ears/Nose/Throat/Neck dizziness 2014 Ears/Nose/Throat/Neck No headache 2014 Cardiovascular No chest pain/pressure 08/2014 Cardiovascular No dyspnea 02/17/2015 Cardiovascular edema 02/17/2015 Respiratory No productive sputum 2014 Respiratory No chest congestion 2014 Respiratory No cough 02/17/2015 Gastrointestinal No abdominal pain 2014 Gastrointestinal constipation 02/17/2015 Gastrointestinal No diarrhea 02/17/2015 Genitourinary/Nephrology No dysuria 02/17 Musculoskeletal back pain 02/17/2015 Musculoskeletal joint complaint 2014 Musculoskeletal muscle weakness 2014 Musculoskeletal sciatica 02/17/2015 Dermatologic No rash 02/17/2015 Dermatologic No sores 02/17/2015 Neurologic No alteration of consciousness 02/17/2015 Constitutional No recent illness 2014 Constitutional No anorexia 02/07/2015 Constitutional No night sweats 2014 Constitutional No chills 02/07/2015 Constitutional No diaphoresis 02/07/2015 Constitutional No fatigue 02/07/2015 Constitutional No fever 02/07/2015 Constitutional No insomnia 02/07/2015 Constitutional No malaise 02/07/2015 Eyes No eye discharge 02/07/2015 Eyes No eye erythema 02/07/2015 Ears/Nose/Throat/Neck dizziness 2014 Ears/Nose/Throat/Neck No headache 2014 Cardiovascular No chest pain/pressure Cardiovascular No dyspnea 02/07/2015 Cardiovascular edema 02/07/2015 Respiratory No productive sputum 2014 Respiratory No chest congestion 2014 Respiratory No cough 02/07/2015 Gastrointestinal No abdominal pain 2014 Gastrointestinal No diarrhea 02/07/2015 Genitourinary/Nephrology No dysuria 02/07 Musculoskeletal back pain 02/07/2015 Musculoskeletal joint complaint 2014 Musculoskeletal muscle weakness 2014 Musculoskeletal sciatica 02/07/2015 Dermatologic No rash 02/07/2015 Dermatologic No sores 02/07/2015 Neurologic No alteration of consciousness 02/07/2015 Gastrointestinal constipation 02/07/2015 Constitutional No recent illness 2013 Constitutional No anorexia 03/30/2014 Constitutional No night sweats 2013 Constitutional No chills 03/30/2014 Constitutional No diaphoresis 03/30/2014 Constitutional No fatigue 03/30/2014 Constitutional No fever 03/30/2014 Constitutional No insomnia 03/30/2014 Constitutional No malaise 03/30/2014 Eyes No eye discharge 03/30/2014 Eyes No eye erythema 03/30/2014 Ears/Nose/Throat/Neck No dizziness 2013 Ears/Nose/Throat/Neck No headache 2013 Cardiovascular No chest pain/pressure Cardiovascular No dyspnea 03/30/2014 Cardiovascular edema 03/30/2014 Respiratory No productive sputum 2013 Respiratory No chest congestion 2013 Respiratory No cough 03/30/2014 Gastrointestinal No abdominal pain 2013 Gastrointestinal constipation 03/30/2014 Gastrointestinal No diarrhea 03/30/2014 Genitourinary/Nephrology No dysuria 03/30 Musculoskeletal back pain 03/30/2014 Musculoskeletal sciatica 03/30/2014 Dermatologic No rash 03/30/2014 Dermatologic No sores 03/30/2014 Neurologic No alteration of consciousness 03/30/2014 Musculoskeletal muscle weakness 2013 Musculoskeletal joint complaint 2013 Constitutional No recent illness 2013 Constitutional No anorexia 12/24/2013 Constitutional No night sweats 2013 Constitutional No chills 12/24/2013 Constitutional No diaphoresis 12/24/2013 Constitutional No fatigue 12/24/2013 Constitutional No fever 12/24/2013 Constitutional No insomnia 12/24/2013 Constitutional No malaise 12/24/2013 Eyes No eye discharge 12/24/2013 Eyes No eye erythema 12/24/2013 Ears/Nose/Throat/Neck No dizziness 2013 Ears/Nose/Throat/Neck No headache 2013 Cardiovascular No chest pain/pressure 03/2014 Cardiovascular No dyspnea 12/24/2013 Cardiovascular edema 12/24/2013 Respiratory No productive sputum 2013 Respiratory No chest congestion 2013 Respiratory No cough 12/24/2013 Gastrointestinal No abdominal pain 2013 Gastrointestinal constipation 12/24/2013 Gastrointestinal No diarrhea 12/24/2013 Genitourinary/Nephrology No dysuria 12/24 Musculoskeletal back pain 12/24/2013 Musculoskeletal sciatica 12/24/2013 Dermatologic No rash 12/24/2013 Dermatologic No sores 12/24/2013 Neurologic No alteration of consciousness 12/24/2013 Constitutional No recent illness 2013 Constitutional No anorexia 12/01/2013 Constitutional No night sweats 2013 Constitutional No chills 12/01/2013 Constitutional No diaphoresis 12/01/2013 Constitutional No fever 12/01/2013 Constitutional No fatigue 12/01/2013 Constitutional No insomnia 12/01/2013 Constitutional No malaise 12/01/2013 Eyes No eye discharge 12/01/2013 Eyes No eye erythema 12/01/2013 Ears/Nose/Throat/Neck No headache 2013 Ears/Nose/Throat/Neck No dizziness 2013 Cardiovascular No chest pain/pressure Cardiovascular No dyspnea 12/01/2013 Cardiovascular edema 12/01/2013 Respiratory No productive sputum 2013 Respiratory No chest congestion 2013 Respiratory No cough 12/01/2013 Gastrointestinal No abdominal pain 2013 Gastrointestinal No constipation 2013 Gastrointestinal No diarrhea 12/01/2013 Genitourinary/Nephrology No dysuria 12/01 Musculoskeletal back pain 12/01/2013 Musculoskeletal sciatica 12/01/2013 Dermatologic No sores 12/01/2013 Dermatologic No rash 12/01/2013 Neurologic No alteration of consciousness 12/01/2013 Constitutional No recent illness 2013 Constitutional No anorexia 11/27/2013 Constitutional No night sweats 2013 Constitutional No chills 11/27/2013 Constitutional No diaphoresis 11/27/2013 Constitutional fatigue 11/27/2013 Constitutional No fever 11/27/2013 Constitutional No insomnia 11/27/2013 Constitutional No malaise 11/27/2013 Constitutional No weight loss 11/27/2013 Constitutional No weight gain 11/27/2013 Eyes No eye discharge 11/27/2013 Eyes No eye erythema 11/27/2013 Ears/Nose/Throat/Neck No dizziness 2013 Ears/Nose/Throat/Neck No headache 2013 Ears/Nose/Throat/Neck No nasal discharge 11/27/2013 Cardiovascular No chest pain/pressure Cardiovascular edema 11/27/2013 Cardiovascular No palpitations 2013 Respiratory No productive sputum 2013 Respiratory No chest congestion 2013 Respiratory No cough 11/27/2013 Gastrointestinal No abdominal pain 2013 Gastrointestinal No constipation 2013 Gastrointestinal No diarrhea 11/27/2013 Gastrointestinal No vomiting 11/27/2013 Gastrointestinal No nausea 11/27/2013 Genitourinary/Nephrology No dysuria 11/27 Musculoskeletal No joint complaint 2013 Dermatologic No rash 11/27/2013 Dermatologic No sores 11/27/2013 Neurologic No alteration of consciousness 11/27/2013 Constitutional No recent illness 2013 Constitutional No chills 08/27/2013 Constitutional No fever 08/27/2013 Eyes No eye discharge 08/27/2013 Eyes No eye erythema 08/27/2013 Eyes No vision change 08/27/2013 Ears/Nose/Throat/Neck No dizziness 2013 Ears/Nose/Throat/Neck No headache 2013 Ears/Nose/Throat/Neck No nasal allergies 08/27/2013 Ears/Nose/Throat/Neck No nasal discharge 08/27/2013 Ears/Nose/Throat/Neck No sore throat Ears/Nose/Throat/Neck No otalgia 2013 Respiratory No cough 08/27/2013 Respiratory No dyspnea 08/27/2013 Respiratory pedal edema 08/27/2013 Gastrointestinal No abdominal pain 2013 Gastrointestinal constipation 08/27/2013 Gastrointestinal No diarrhea 08/27/2013 Gastrointestinal No nausea 08/27/2013 Gastrointestinal No vomiting 08/27/2013 Genitourinary/Nephrology No dysuria 08/27 Genitourinary/Nephrology No nocturia Genitourinary/Nephrology No urinary frequency 08/27/2013 Musculoskeletal arthralgia(s) 08/27/2013 Dermatologic ecchymosis 08/27/2013 Constitutional recent illness 05/20/2013 Constitutional No chills 05/20/2013 Constitutional fatigue 05/20/2013 Constitutional No fever 05/20/2013 Constitutional No insomnia 05/20/2013 Constitutional No malaise 05/20/2013 Ears/Nose/Throat/Neck No dizziness 2012 Ears/Nose/Throat/Neck hoarseness 2012 Respiratory No chest tightness 2012 Respiratory cough 05/20/2013 Neurologic memory loss 05/20/2013 Psychiatric No anxiety 05/20/2013 Psychiatric No depression 05/20/2013 Constitutional recent illness 04/30/2013 Constitutional No chills 04/30/2013 Constitutional fatigue 04/30/2013 Constitutional No fever 04/30/2013 Constitutional No insomnia 04/30/2013 Constitutional No malaise 04/30/2013 Psychiatric No anxiety 04/30/2013 Psychiatric No depression 04/30/2013 Respiratory cough 04/30/2013 Respiratory No chest tightness 2012 Neurologic memory loss 04/30/2013 Ears/Nose/Throat/Neck No dizziness 2012 Ears/Nose/Throat/Neck hoarseness 2012 Constitutional recent illness 04/16/2013 Constitutional No chills 04/16/2013 Constitutional fatigue 04/16/2013 Constitutional No fever 04/16/2013 Constitutional No insomnia 04/16/2013 Constitutional No malaise 04/16/2013 Ears/Nose/Throat/Neck No dizziness 2012 Ears/Nose/Throat/Neck hoarseness 2012 Respiratory No chest tightness 2012 Respiratory cough 04/16/2013 Neurologic memory loss 04/16/2013 Psychiatric No anxiety 04/16/2013 Psychiatric No depression 04/16/2013 Gastrointestinal No hemorrhoids 2012 Gastrointestinal No abdominal pain 2012 Gastrointestinal No constipation 2012 Gastrointestinal No diarrhea 04/16/2013 Gastrointestinal No gastroesophageal reflux 04/16/2013 Gastrointestinal No melena 04/16/2013 Gastrointestinal No nausea 04/16/2013 Gastrointestinal No vomiting 04/16/2013 Musculoskeletal arthralgia(s) 04/16/2013 Musculoskeletal stiffness 04/16/2013 Constitutional No chills 03/10/2013 Constitutional No fever 03/10/2013 Constitutional No recent illness 2012 Eyes No eye discharge 03/10/2013 Eyes No eye erythema 03/10/2013 Eyes No vision change 03/10/2013 Ears/Nose/Throat/Neck No dizziness 2012 Ears/Nose/Throat/Neck No headache 2012 Ears/Nose/Throat/Neck No nasal allergies 03/10/2013 Ears/Nose/Throat/Neck No nasal discharge 03/10/2013 Ears/Nose/Throat/Neck No sore throat Ears/Nose/Throat/Neck No otalgia 2012 Respiratory No cough 03/10/2013 Respiratory No dyspnea 03/10/2013 Respiratory pedal edema 03/10/2013 Gastrointestinal No abdominal pain 2012 Gastrointestinal No diarrhea 03/10/2013 Gastrointestinal constipation 03/10/2013 Gastrointestinal No nausea 03/10/2013 Gastrointestinal No vomiting 03/10/2013 Musculoskeletal arthralgia(s) 03/10/2013 Dermatologic ecchymosis 03/10/2013 Genitourinary/Nephrology No nocturia Genitourinary/Nephrology No dysuria 03/10 Genitourinary/Nephrology No urinary frequency 03/10/2013 Constitutional No chills 12/08/2012 Constitutional No fatigue 12/08/2012 Constitutional No fever 12/08/2012 Constitutional No recent illness 2012 Constitutional No chills 12/02/2012 Constitutional No fatigue 12/02/2012 Constitutional No fever 12/02/2012 Constitutional No insomnia 12/02/2012 Constitutional No malaise 12/02/2012 Eyes No blindness 12/02/2012 Eyes No vision change 12/02/2012 Ears/Nose/Throat/Neck No dental pain Ears/Nose/Throat/Neck No dizziness 2012 Ears/Nose/Throat/Neck No dysphagia 2012 Ears/Nose/Throat/Neck No headache 2012 Ears/Nose/Throat/Neck No hearing loss Ears/Nose/Throat/Neck No nasal allergies 12/02/2012 Ears/Nose/Throat/Neck No sore throat Ears/Nose/Throat/Neck No postnasal drip 12/02/2012 Ears/Nose/Throat/Neck No sinus congestion 12/02/2012 Respiratory No chest tightness 2012 Respiratory No cigarette smoking 2012 Respiratory No cough 12/02/2012 Respiratory No dyspnea 12/02/2012 Respiratory No pedal edema 12/02/2012 Respiratory No snoring 12/02/2012 Respiratory No wheezing 12/02/2012 Gastrointestinal No hemorrhoids 2012 Gastrointestinal No abdominal pain 2012 Gastrointestinal No constipation 2012 Gastrointestinal No diarrhea 12/02/2012 Gastrointestinal No gastroesophageal reflux 12/02/2012 Gastrointestinal No melena 12/02/2012 Gastrointestinal No nausea 12/02/2012 Gastrointestinal No vomiting 12/02/2012 Genitourinary/Nephrology No dysuria 12/02 Genitourinary/Nephrology No nocturia Genitourinary/Nephrology No urinary incontinence 12/02/2012 Neurologic No dizziness 12/02/2012 Neurologic No headache 12/02/2012 Neurologic memory loss 12/02/2012 Neurologic No neck pain 12/02/2012 Neurologic No syncope 12/02/2012 Psychiatric No anxiety 12/02/2012 Psychiatric No depression 12/02/2012 Constitutional No recent illness 2012 Constitutional No chills 10/08/2012 Constitutional No fatigue 10/08/2012 Constitutional No fever 10/08/2012 Constitutional No insomnia 10/08/2012 Constitutional No malaise 10/08/2012 Eyes No blindness 10/08/2012 Eyes No vision change 10/08/2012 Ears/Nose/Throat/Neck No dental pain Ears/Nose/Throat/Neck No dizziness 2012 Ears/Nose/Throat/Neck No dysphagia 2012 Ears/Nose/Throat/Neck No headache 2012 Ears/Nose/Throat/Neck No hearing loss Ears/Nose/Throat/Neck No nasal allergies 10/08/2012 Ears/Nose/Throat/Neck No sore throat Ears/Nose/Throat/Neck No postnasal drip 10/08/2012 Ears/Nose/Throat/Neck No sinus congestion 10/08/2012 Respiratory No chest tightness 2012 Respiratory No cigarette smoking 2012 Respiratory No cough 10/08/2012 Respiratory No dyspnea 10/08/2012 Respiratory No pedal edema 10/08/2012 Respiratory No snoring 10/08/2012 Respiratory No wheezing 10/08/2012 Gastrointestinal No hemorrhoids 2012 Gastrointestinal No abdominal pain 2012 Gastrointestinal No constipation 2012 Gastrointestinal No diarrhea 10/08/2012 Gastrointestinal No gastroesophageal reflux 10/08/2012 Gastrointestinal No melena 10/08/2012 Gastrointestinal No nausea 10/08/2012 Gastrointestinal No vomiting 10/08/2012 Genitourinary/Nephrology No dysuria 10/08 Genitourinary/Nephrology No nocturia Genitourinary/Nephrology No urinary incontinence 10/08/2012 Dermatologic No rash 10/08/2012 Dermatologic No scar 10/08/2012 Neurologic No dizziness 10/08/2012 Neurologic No headache 10/08/2012 Neurologic memory loss 10/08/2012 Neurologic No neck pain 10/08/2012 Neurologic No syncope 10/08/2012 Psychiatric No anxiety 10/08/2012 Psychiatric No depression 10/08/2012 Constitutional No recent illness 2012 Constitutional No anorexia 08/27/2012 Constitutional No night sweats 2012 Constitutional No chills 08/27/2012 Constitutional No diaphoresis 08/27/2012 Constitutional No fatigue 08/27/2012 Constitutional No fever 08/27/2012 Constitutional No insomnia 08/27/2012 Constitutional No malaise 08/27/2012 Cardiovascular No chest pain/pressure Cardiovascular No dyspnea 08/27/2012 Cardiovascular No fatigue 08/27/2012 Gastrointestinal No abdominal pain 2012 Gastrointestinal No constipation 2012 Gastrointestinal No diarrhea 08/27/2012 Gastrointestinal No nausea 08/27/2012 Gastrointestinal No vomiting 08/27/2012 Musculoskeletal No joint complaint 2012 Constitutional No recent illness 2012 Constitutional No chills 07/09/2012 Constitutional No fatigue 07/09/2012 Constitutional No fever 07/09/2012 Constitutional No insomnia 07/09/2012 Constitutional No malaise 07/09/2012 Eyes No blindness 07/09/2012 Eyes No vision change 07/09/2012 Ears/Nose/Throat/Neck No dental pain Ears/Nose/Throat/Neck No dizziness 2012 Ears/Nose/Throat/Neck No dysphagia 2012 Ears/Nose/Throat/Neck No headache 2012 Ears/Nose/Throat/Neck No hearing loss Ears/Nose/Throat/Neck No nasal allergies 07/09/2012 Ears/Nose/Throat/Neck No sore throat Ears/Nose/Throat/Neck No postnasal drip 07/09/2012 Ears/Nose/Throat/Neck No sinus congestion 07/09/2012 Respiratory No chest tightness 2012 Respiratory No cigarette smoking 2012 Respiratory No cough 07/09/2012 Respiratory No dyspnea 07/09/2012 Respiratory No pedal edema 07/09/2012 Respiratory No snoring 07/09/2012 Respiratory No wheezing 07/09/2012 Gastrointestinal No hemorrhoids 2012 Gastrointestinal No abdominal pain 2012 Gastrointestinal No constipation 2012 Gastrointestinal No diarrhea 07/09/2012 Gastrointestinal No gastroesophageal reflux 07/09/2012 Gastrointestinal No melena 07/09/2012 Gastrointestinal No nausea 07/09/2012 Gastrointestinal No vomiting 07/09/2012 Genitourinary/Nephrology No dysuria 07/09 Genitourinary/Nephrology No nocturia Genitourinary/Nephrology No urinary incontinence 07/09/2012 Dermatologic No rash 07/09/2012 Dermatologic No scar 07/09/2012 Neurologic No dizziness 07/09/2012 Neurologic No headache 07/09/2012 Neurologic memory loss 07/09/2012 Neurologic No neck pain 07/09/2012 Neurologic No syncope 07/09/2012 Psychiatric No anxiety 07/09/2012 Psychiatric No depression 07/09/2012 Ears/Nose/Throat/Neck No hearing loss 08/2011 Ears/Nose/Throat/Neck No nasal allergies 05/19/2012 Ears/Nose/Throat/Neck No sore throat 08/2011 Ears/Nose/Throat/Neck No postnasal drip 05/19/2012 Ears/Nose/Throat/Neck No sinus congestion 05/19/2012 Respiratory No chest tightness 2011 Respiratory No cigarette smoking 2011 Respiratory No cough 05/19/2012 Respiratory No dyspnea 05/19/2012 Respiratory No pedal edema 05/19/2012 Respiratory No snoring 05/19/2012 Respiratory No wheezing 05/19/2012 Gastrointestinal No hemorrhoids 2011 Gastrointestinal No abdominal pain 2011 Gastrointestinal No constipation 2011 Gastrointestinal No diarrhea 05/19/2012 Gastrointestinal No gastroesophageal reflux 05/19/2012 Gastrointestinal No melena 05/19/2012 Gastrointestinal No nausea 05/19/2012 Constitutional No recent illness 2011 Constitutional No chills 05/19/2012 Constitutional No fatigue 05/19/2012 Constitutional No fever 05/19/2012 Constitutional No insomnia 05/19/2012 Gastrointestinal No vomiting 05/19/2012 Genitourinary/Nephrology No dysuria 05/19 Genitourinary/Nephrology No nocturia 08/2011 Genitourinary/Nephrology No urinary incontinence 05/19/2012 Dermatologic No rash 05/19/2012 Dermatologic No scar 05/19/2012 Neurologic No dizziness 05/19/2012 Neurologic No headache 05/19/2012 Neurologic memory loss 05/19/2012 Neurologic No neck pain 05/19/2012 Neurologic No syncope 05/19/2012 Psychiatric No anxiety 05/19/2012 Psychiatric No depression 05/19/2012 Eyes No vision change 05/19/2012 Ears/Nose/Throat/Neck No dental pain 08/2011 Ears/Nose/Throat/Neck No dizziness 2011 Ears/Nose/Throat/Neck No dysphagia 2011 Ears/Nose/Throat/Neck No headache 2011 Constitutional No malaise 05/19/2012 Eyes No blindness 05/19/2012 Constitutional No recent illness 2011 Constitutional No chills 04/28/2012 Constitutional No fatigue 04/28/2012 Constitutional No fever 04/28/2012 Constitutional No insomnia 04/28/2012 Constitutional No malaise 04/28/2012 Genitourinary/Nephrology No nocturia 05/2012 Genitourinary/Nephrology No urinary incontinence 04/28/2012 Dermatologic No rash 04/28/2012 Dermatologic No scar 04/28/2012 Neurologic No dizziness 04/28/2012 Neurologic No headache 04/28/2012 Neurologic No neck pain 04/28/2012 Neurologic No syncope 04/28/2012 Psychiatric No anxiety 04/28/2012 Psychiatric No depression 04/28/2012 Neurologic memory loss 04/28/2012 Eyes No blindness 04/28/2012 Eyes No vision change 04/28/2012 Ears/Nose/Throat/Neck No dental pain 05/2012 Ears/Nose/Throat/Neck No dizziness 2011 Ears/Nose/Throat/Neck No dysphagia 2011 Ears/Nose/Throat/Neck No headache 2011 Ears/Nose/Throat/Neck No hearing loss 05/2012 Ears/Nose/Throat/Neck No nasal allergies 04/28/2012 Ears/Nose/Throat/Neck No sore throat 05/2012 Ears/Nose/Throat/Neck No postnasal drip 04/28/2012 Ears/Nose/Throat/Neck No sinus congestion 04/28/2012 Respiratory No chest tightness 2011 Respiratory No cigarette smoking 2011 Respiratory No cough 04/28/2012 Respiratory No dyspnea 04/28/2012 Respiratory No pedal edema 04/28/2012 Respiratory No snoring 04/28/2012 Respiratory No wheezing 04/28/2012 Gastrointestinal No hemorrhoids 2011 Gastrointestinal No abdominal pain 2011 Gastrointestinal No constipation 2011 Gastrointestinal No diarrhea 04/28/2012 Gastrointestinal No gastroesophageal reflux 04/28/2012 Gastrointestinal No melena 04/28/2012 Gastrointestinal No nausea 04/28/2012 Gastrointestinal No vomiting 04/28/2012 Genitourinary/Nephrology No dysuria 04/28 Physical Exam Exam Name System Name Item Name Status Result Effective Dates Notes Full Exam - General 1994 Constitutional general appearance Overall: well developed 08/19/2018 None Full Exam - General 1994 Constitutional general appearance Overall: in no acute distress 08/19/2018 None Full Exam - General 1994 Constitutional general appearance Overall: well nourished 08/19/2018 None Full Exam - General 1994 Eyes conjunctiva /eyelids Overall: conjunctiva clear 08/19/2018 None Full Exam - General 1994 Eyes conjunctiva /eyelids Overall: cornea clear 08/19/2018 None Full Exam - General 1994 Eyes conjunctiva /eyelids Overall: eyelids normal 08/19/2018 None Full Exam - General 1994 Eyes pupils and irises Overall: pupils equal, round, reactive to light and accomodation 08/19/2018 None Full Exam - General 1994 Ears/Nose/Throat otoscopic exam Overall: external auditory canals clear 08/19/2018 None Full Exam - General 1994 Ears/Nose/Throat otoscopic exam Overall: tympanic membranes clear 08/19/2018 None Full Exam - General 1994 Ears/Nose/Throat oral cavity/pharynx/larynx Overall: oral mucosa clear 08/19/2018 None Full Exam - General 1994 Ears/Nose/Throat oral cavity/pharynx/larynx Overall: oropharyngeal mucosa clear 08/19/2018 None Full Exam - General 1994 Ears/Nose/Throat oral cavity/pharynx/larynx Overall: no masses 08/19/2018 None Full Exam - General 1994 Respiratory auscultation Overall: breath sounds clear bilaterally 08/19/2018 None Full Exam - General 1994 Respiratory respiratory effort/rhythm Overall: no retractions 08/19/2018 None Full Exam - General 1994 Respiratory respiratory effort/rhythm Overall: normal rate 08/19/2018 None Full Exam - General 1994 Cardiovascular extremities Edema present: non-pitting 08/19/2018 None Full Exam - General 1994 Cardiovascular extremities Edema present: bilateral 08/19/2018 lower legs Full Exam - General 1994 Cardiovascular auscultation of heart Overall: regular rate 08/19/2018 None Full Exam - General 1994 Cardiovascular auscultation of heart Overall: normal heart sounds 08/19/2018 None Full Exam - General 1994 Cardiovascular auscultation of heart Overall: no murmurs 08/19/2018 None Full Exam - General 1994 Abdomen abdominal exam Overall: no tenderness 08/19/2018 None Full Exam - General 1994 Abdomen abdominal exam Overall: normal bowel sounds 08/19/2018 None Full Exam - General 1994 Musculoskeletal lower extremity Palpation - knee: crepitus 08/19/2018 None Full Exam - General 1994 Musculoskeletal spine, ribs and pelvis Palpation: tender at joint line 08/19/2018 None Full Exam - General 1994 Musculoskeletal gait and station Gait: asymmetric 08/19/2018 None Full Exam - General 1994 Musculoskeletal gait and station Station: [email or web address] 08/19/2018 None Full Exam - General 1994 Integument inspection of skin Overall: no rash, lesions 08/19/2018 None Full Exam - General 1994 Neurologic mental status Overall: alert 08/19/2018 None Full Exam - General 1994 Psychiatric orientation/consciousness Oriented to person: yes 08/19/2018 None Full Exam - General 1994 Psychiatric orientation/consciousness Oriented to place: yes 08/19/2018 None Full Exam - General 1994 Psychiatric orientation/consciousness Oriented to time: no 08/19/2018 None Full Exam - General 1994 Psychiatric orientation/consciousness Level of consciousness: alert 08/19/2018 None Full Exam - General 1994 Ears/Nose/Throat lips/teeth/gingiva Teeth: wears dentures 08/19/2018 None Full Exam - General 1994 Constitutional general appearance Overall: well developed 02/14/2018 None Full Exam - General 1994 Constitutional general appearance Overall: in no acute distress 02/14/2018 None Full Exam - General 1994 Constitutional general appearance Overall: well nourished 02/14/2018 None Full Exam - General 1994 Eyes conjunctiva /eyelids Overall: conjunctiva clear 02/14/2018 None Full Exam - General 1994 Eyes conjunctiva /eyelids Overall: cornea clear 02/14/2018 None Full Exam - General 1994 Eyes conjunctiva /eyelids Overall: eyelids normal 02/14/2018 None Full Exam - General 1994 Eyes pupils and irises Overall: pupils equal, round, reactive to light and accomodation 02/14/2018 None Full Exam - General 1994 Ears/Nose/Throat otoscopic exam Overall: external auditory canals clear 02/14/2018 None Full Exam - General 1994 Ears/Nose/Throat otoscopic exam Overall: tympanic membranes clear 02/14/2018 None Full Exam - General 1994 Ears/Nose/Throat oral cavity/pharynx/larynx Overall: oral mucosa clear 02/14/2018 None Full Exam - General 1994 Ears/Nose/Throat oral cavity/pharynx/larynx Overall: oropharyngeal mucosa clear 02/14/2018 None Full Exam - General 1994 Ears/Nose/Throat oral cavity/pharynx/larynx Overall: no masses 02/14/2018 None Full Exam - General 1994 Respiratory auscultation Overall: breath sounds clear bilaterally 02/14/2018 None Full Exam - General 1994 Respiratory respiratory effort/rhythm Overall: no retractions 02/14/2018 None Full Exam - General 1994 Respiratory respiratory effort/rhythm Overall: normal rate 02/14/2018 None Full Exam - General 1994 Cardiovascular extremities Edema present: non-pitting 02/14/2018 None Full Exam - General 1994 Cardiovascular extremities Edema present: bilateral 02/14/2018 lower legs Full Exam - General 1994 Cardiovascular auscultation of heart Overall: regular rate 02/14/2018 None Full Exam - General 1994 Cardiovascular auscultation of heart Overall: normal heart sounds 02/14/2018 None Full Exam - General 1994 Cardiovascular auscultation of heart Overall: no murmurs 02/14/2018 None Full Exam - General 1994 Abdomen abdominal exam Overall: no tenderness 02/14/2018 None Full Exam - General 1994 Abdomen abdominal exam Overall: normal bowel sounds 02/14/2018 None Full Exam - General 1994 Integument inspection of skin Overall: no rash, lesions 02/14/2018 None Full Exam - General 1994 Neurologic mental status Overall: alert 02/14/2018 None Full Exam - General 1994 Musculoskeletal gait and station Gait: asymmetric 02/14/2018 None Full Exam - General 1994 Musculoskeletal gait and station Station: kyphosis 02/14/2018 None Full Exam - General 1994 Musculoskeletal spine, ribs and pelvis Palpation: tender at joint line 02/14/2018 None Full Exam - General 1994 Psychiatric orientation/consciousness Oriented to person: yes 02/14/2018 None Full Exam - General 1994 Psychiatric orientation/consciousness Oriented to place: yes 02/14/2018 None Full Exam - General 1994 Psychiatric orientation/consciousness Oriented to time: no 02/14/2018 None Full Exam - General 1994 Psychiatric orientation/consciousness Level of consciousness: alert 02/14/2018 None Full Exam - General 1994 Musculoskeletal lower extremity Palpation - knee: crepitus 02/14/2018 None Full Exam - General 1994 Constitutional general appearance Overall: well developed 11/14/2017 None Full Exam - General 1994 Constitutional general appearance Overall: in no acute distress 11/14/2017 None Full Exam - General 1994 Constitutional general appearance Overall: well nourished 11/14/2017 None Full Exam - General 1994 Eyes conjunctiva /eyelids Overall: conjunctiva clear 11/14/2017 None Full Exam - General 1994 Eyes conjunctiva /eyelids Overall: cornea clear 11/14/2017 None Full Exam - General 1994 Eyes conjunctiva /eyelids Overall: eyelids normal 11/14/2017 None Full Exam - General 1994 Ears/Nose/Throat oral cavity/pharynx/larynx Overall: oral mucosa clear 11/14/2017 None Full Exam - General 1994 Respiratory auscultation Overall: breath sounds clear bilaterally 11/14/2017 None Full Exam - General 1994 Respiratory respiratory effort/rhythm Overall: no retractions 11/14/2017 None Full Exam - General 1994 Respiratory respiratory effort/rhythm Overall: normal rate 11/14/2017 None Full Exam - General 1994 Cardiovascular extremities Edema present: non-pitting 11/14/2017 None Full Exam - General 1994 Cardiovascular extremities Edema present: severity 1+ - 4 +: trace to 1+ 11/14/2017 None Full Exam - General 1994 Cardiovascular extremities Edema present: bilateral 11/14/2017 left worse than right Full Exam - General 1994 Cardiovascular auscultation of heart Overall: regular rate 11/14/2017 None Full Exam - General 1994 Cardiovascular auscultation of heart Overall: normal heart sounds 11/14/2017 None Full Exam - General 1994 Cardiovascular auscultation of heart Overall: no murmurs 11/14/2017 None Full Exam - General 1994 Musculoskeletal lower extremity Palpation - knee: crepitus 11/14/2017 None Full Exam - General 1994 Neurologic mental status Overall: alert 11/14/2017 None Full Exam - General 1994 Psychiatric orientation/consciousness Oriented to person: yes 11/14/2017 None Full Exam - General 1994 Psychiatric orientation/consciousness Level of consciousness: alert 11/14/2017 None Full Exam - General 1994 Abdomen abdominal exam Overall: normal bowel sounds 11/14/2017 None Full Exam - General 1994 Abdomen abdominal exam Overall: no tenderness 11/14/2017 None Full Exam - General 1994 Psychiatric orientation/consciousness Oriented to place: no 11/14/2017 None Full Exam - General 1994 Psychiatric orientation/consciousness Oriented to time: no 11/14/2017 None Full Exam - General 1994 Constitutional general appearance Overall: well developed 08/13/2017 None Full Exam - General 1994 Constitutional general appearance Overall: in no acute distress 08/13/2017 None Full Exam - General 1994 Constitutional general appearance Overall: well nourished 08/13/2017 None Full Exam - General 1994 Eyes conjunctiva /eyelids Overall: conjunctiva clear 08/13/2017 None Full Exam - General 1994 Eyes conjunctiva /eyelids Overall: cornea clear 08/13/2017 None Full Exam - General 1994 Eyes conjunctiva /eyelids Overall: eyelids normal 08/13/2017 None Full Exam - General 1994 Ears/Nose/Throat oral cavity/pharynx/larynx Overall: oral mucosa clear 08/13/2017 None Full Exam - General 1994 Respiratory auscultation Overall: breath sounds clear bilaterally 08/13/2017 None Full Exam - General 1994 Respiratory respiratory effort/rhythm Overall: no retractions 08/13/2017 None Full Exam - General 1994 Respiratory respiratory effort/rhythm Overall: normal rate 08/13/2017 None Full Exam - General 1994 Cardiovascular extremities Edema present: non-pitting 08/13/2017 None Full Exam - General 1994 Cardiovascular extremities Edema present: severity 1+ - 4 +: trace to 1+ 08/13/2017 None Full Exam - General 1994 Cardiovascular extremities Edema present: bilateral 08/13/2017 left worse than right Full Exam - General 1994 Cardiovascular auscultation of heart Overall: regular rate 08/13/2017 None Full Exam - General 1994 Cardiovascular auscultation of heart Overall: normal heart sounds 08/13/2017 None Full Exam - General 1994 Cardiovascular auscultation of heart Overall: no murmurs 08/13/2017 None Full Exam - General 1994 Musculoskeletal lower extremity Palpation - knee: crepitus 08/13/2017 None Full Exam - General 1994 Integument inspection of skin Location: left leg 08/13/2017 None Full Exam - General 1994 Integument inspection of skin Pigmentation: ecchymosis 08/13/2017 None Full Exam - General 1994 Neurologic mental status Overall: alert 08/13/2017 None Full Exam - General 1994 Psychiatric orientation/consciousness Oriented to person: yes 08/13/2017 None Full Exam - General 1994 Psychiatric orientation/consciousness Level of consciousness: alert 08/13/2017 None Full Exam - General 1994 Constitutional general appearance Overall: well developed 05/21/2017 None Full Exam - General 1994 Constitutional general appearance Overall: in no acute distress 05/21/2017 None Full Exam - General 1994 Constitutional general appearance Overall: well nourished 05/21/2017 None Full Exam - General 1994 Eyes conjunctiva /eyelids Overall: conjunctiva clear 05/21/2017 None Full Exam - General 1994 Eyes conjunctiva /eyelids Overall: eyelids normal 05/21/2017 None Full Exam - General 1994 Ears/Nose/Throat oral cavity/pharynx/larynx Overall: oral mucosa clear 05/21/2017 None Full Exam - General 1994 Respiratory auscultation Overall: breath sounds clear bilaterally 05/21/2017 None Full Exam - General 1994 Respiratory respiratory effort/rhythm Overall: no retractions 05/21/2017 None Full Exam - General 1994 Respiratory respiratory effort/rhythm Overall: normal rate 05/21/2017 None Full Exam - General 1994 Cardiovascular extremities Edema present: non-pitting 05/21/2017 None Full Exam - General 1994 Cardiovascular extremities Edema present: bilateral 05/21/2017 lower legs Full Exam - General 1994 Cardiovascular auscultation of heart Overall: regular rate 05/21/2017 None Full Exam - General 1994 Cardiovascular auscultation of heart Overall: normal heart sounds 05/21/2017 None Full Exam - General 1994 Cardiovascular auscultation of heart Overall: no murmurs 05/21/2017 None Full Exam - General 1994 Musculoskeletal lower extremity Palpation - knee: crepitus 05/21/2017 None Full Exam - General 1994 Neurologic mental status Overall: alert 05/21/2017 None Full Exam - General 1994 Eyes conjunctiva /eyelids Overall: cornea clear 05/21/2017 None Full Exam - General 1994 Cardiovascular extremities Edema present: severity 1+ - 4 +: trace to 1+ 05/21/2017 None Full Exam - General 1994 Integument inspection of skin Location: left leg 05/21/2017 None Full Exam - General 1994 Integument inspection of skin Pigmentation: ecchymosis 05/21/2017 None Full Exam - General 1994 Psychiatric orientation/consciousness Oriented to person: yes 05/21/2017 None Full Exam - General 1994 Psychiatric orientation/consciousness Level of consciousness: alert 05/21/2017 None Full Exam - General 1994 Constitutional general appearance Overall: well developed 05/07/2017 None Full Exam - General 1994 Constitutional general appearance Overall: in no acute distress 05/07/2017 None Full Exam - General 1994 Constitutional general appearance Overall: well nourished 05/07/2017 None Full Exam - General 1994 Eyes conjunctiva /eyelids Overall: conjunctiva clear 05/07/2017 None Full Exam - General 1994 Eyes conjunctiva /eyelids Overall: cornea clear 05/07/2017 None Full Exam - General 1994 Eyes conjunctiva /eyelids Overall: eyelids normal 05/07/2017 None Full Exam - General 1994 Ears/Nose/Throat oral cavity/pharynx/larynx Overall: oral mucosa clear 05/07/2017 None Full Exam - General 1994 Respiratory auscultation Overall: breath sounds clear bilaterally 05/07/2017 None Full Exam - General 1994 Respiratory respiratory effort/rhythm Overall: no retractions 05/07/2017 None Full Exam - General 1994 Respiratory respiratory effort/rhythm Overall: normal rate 05/07/2017 None Full Exam - General 1994 Cardiovascular extremities Edema present: non-pitting 05/07/2017 None Full Exam - General 1994 Cardiovascular extremities Edema present: severity 1+ - 4 +: trace to 1+ 05/07/2017 None Full Exam - General 1994 Cardiovascular extremities Edema present: bilateral 05/07/2017 lower legs Full Exam - General 1994 Cardiovascular auscultation of heart Overall: regular rate 05/07/2017 None Full Exam - General 1994 Cardiovascular auscultation of heart Overall: normal heart sounds 05/07/2017 None Full Exam - General 1994 Cardiovascular auscultation of heart Overall: no murmurs 05/07/2017 None Full Exam - General 1994 Neurologic mental status Overall: alert 05/07/2017 None Full Exam - General 1994 Psychiatric orientation/consciousness Oriented to person: yes 05/07/2017 None Full Exam - General 1994 Psychiatric orientation/consciousness Level of consciousness: alert 05/07/2017 None Full Exam - General 1994 Ears/Nose/Throat lips/teeth/gingiva Overall: benign lips 05/07/2017 None Full Exam - General 1994 Respiratory auscultation Diffuse: diminished 05/07/2017 None Full Exam - General 1994 Abdomen abdominal exam Overall: normal bowel sounds 05/07/2017 None Full Exam - General 1994 Abdomen abdominal exam Overall: no tenderness 05/07/2017 None Full Exam - General 1994 Musculoskeletal spine, ribs and pelvis Palpation: tender at greater trochanter 05/07/2017 None Full Exam - General 1994 Musculoskeletal head and neck Overall: head atraumatic 05/07/2017 None Full Exam - General 1994 Psychiatric mood and affect Overall: normal mood and affect 05/07/2017 None Full Exam - General 1994 Constitutional general appearance Overall: well developed 01/08/2017 None Full Exam - General 1994 Constitutional general appearance Overall: in no acute distress 01/08/2017 None Full Exam - General 1994 Constitutional general appearance Overall: well nourished 01/08/2017 None Full Exam - General 1994 Eyes conjunctiva /eyelids Overall: conjunctiva clear 01/08/2017 None Full Exam - General 1994 Eyes conjunctiva /eyelids Overall: cornea clear 01/08/2017 None Full Exam - General 1994 Eyes conjunctiva /eyelids Overall: eyelids normal 01/08/2017 None Full Exam - General 1994 Eyes pupils and irises Overall: pupils equal, round, reactive to light and accomodation 01/08/2017 None Full Exam - General 1994 Ears/Nose/Throat otoscopic exam Overall: external auditory canals clear 01/08/2017 None Full Exam - General 1994 Ears/Nose/Throat otoscopic exam Overall: tympanic membranes clear 01/08/2017 None Full Exam - General 1994 Ears/Nose/Throat oral cavity/pharynx/larynx Overall: oral mucosa clear 01/08/2017 None Full Exam - General 1994 Ears/Nose/Throat oral cavity/pharynx/larynx Overall: oropharyngeal mucosa clear 01/08/2017 None Full Exam - General 1994 Ears/Nose/Throat oral cavity/pharynx/larynx Overall: no masses 01/08/2017 None Full Exam - General 1994 Respiratory auscultation Overall: breath sounds clear bilaterally 01/08/2017 None Full Exam - General 1994 Respiratory respiratory effort/rhythm Overall: no retractions 01/08/2017 None Full Exam - General 1994 Respiratory respiratory effort/rhythm Overall: normal rate 01/08/2017 None Full Exam - General 1994 Cardiovascular extremities Edema present: non-pitting 01/08/2017 None Full Exam - General 1994 Cardiovascular extremities Edema present: bilateral 01/08/2017 lower legs Full Exam - General 1994 Cardiovascular auscultation of heart Overall: regular rate 01/08/2017 None Full Exam - General 1994 Cardiovascular auscultation of heart Overall: normal heart sounds 01/08/2017 None Full Exam - General 1994 Cardiovascular auscultation of heart Overall: no murmurs 01/08/2017 None Full Exam - General 1994 Abdomen abdominal exam Overall: no tenderness 01/08/2017 None Full Exam - General 1994 Abdomen abdominal exam Overall: normal bowel sounds 01/08/2017 None Full Exam - General 1994 Musculoskeletal lower extremity Palpation - thigh: tenderness 01/08/2017 None Full Exam - General 1994 Musculoskeletal lower extremity Palpation - knee: crepitus 01/08/2017 None Full Exam - General 1994 Integument inspection of skin Overall: no rash, lesions 01/08/2017 None Full Exam - General 1994 Neurologic mental status Overall: alert 01/08/2017 None Full Exam - General 1994 Psychiatric orientation/consciousness Overall: oriented to person, place and time 01/08/2017 None Full Exam - General 1994 Ears/Nose/Throat external ear Auricle: mass 01/08/2017 cystic structure on lower lobe of ear and over mastoid region - as well as a large skin tag on upper part of auricle Full Exam - General 1994 Constitutional general appearance Overall: well developed 01/07/2017 None Full Exam - General 1994 Constitutional general appearance Overall: well nourished 01/07/2017 None Full Exam - General 1994 Eyes conjunctiva /eyelids Overall: conjunctiva clear 01/07/2017 None Full Exam - General 1994 Eyes conjunctiva /eyelids Overall: eyelids normal 01/07/2017 None Full Exam - General 1994 Ears/Nose/Throat lips/teeth/gingiva Overall: benign lips 01/07/2017 None Full Exam - General 1994 Ears/Nose/Throat oral cavity/pharynx/larynx Overall: oral mucosa clear 01/07/2017 None Full Exam - General 1994 Respiratory auscultation Overall: breath sounds clear bilaterally 01/07/2017 None Full Exam - General 1994 Respiratory respiratory effort/rhythm Overall: normal rate 01/07/2017 None Full Exam - General 1994 Respiratory respiratory effort/rhythm Overall: no retractions 01/07/2017 None Full Exam - General 1994 Cardiovascular auscultation of heart Overall: regular rate 01/07/2017 None Full Exam - General 1994 Cardiovascular auscultation of heart Overall: normal heart sounds 01/07/2017 None Full Exam - General 1994 Musculoskeletal head and neck Overall: head atraumatic 01/07/2017 None Full Exam - General 1994 Psychiatric orientation/consciousness Overall: oriented to person, place and time 01/07/2017 None Full Exam - General 1994 Psychiatric mood and affect Mood: irritable 01/07/2017 None Full Exam - General 1994 Psychiatric mood and affect Mood: labile mood 01/07/2017 None Full Exam - General 1994 Psychiatric mood and affect Mood: confused 01/07/2017 None Full Exam - General 1994 Ears/Nose/Throat external ear Mass: left 01/07/2017 cystic lesion, also pearly red lesion Full Exam - General 1994 Ears/Nose/Throat external ear Auricle: nontender 01/07/2017 None Full Exam - General 1994 Constitutional general appearance Overall: well developed 11/07/2016 None Full Exam - General 1994 Constitutional general appearance Overall: in no acute distress 11/07/2016 None Full Exam - General 1994 Constitutional general appearance Overall: well nourished 11/07/2016 None Full Exam - General 1994 Eyes conjunctiva /eyelids Overall: conjunctiva clear 11/07/2016 None Full Exam - General 1994 Eyes conjunctiva /eyelids Overall: cornea clear 11/07/2016 None Full Exam - General 1994 Eyes conjunctiva /eyelids Overall: eyelids normal 11/07/2016 None Full Exam - General 1994 Eyes pupils and irises Overall: pupils equal, round, reactive to light and accomodation 11/07/2016 None Full Exam - General 1994 Ears/Nose/Throat otoscopic exam Overall: external auditory canals clear 11/07/2016 None Full Exam - General 1994 Ears/Nose/Throat otoscopic exam Overall: tympanic membranes clear 11/07/2016 None Full Exam - General 1994 Ears/Nose/Throat oral cavity/pharynx/larynx Overall: oral mucosa clear 11/07/2016 None Full Exam - General 1994 Ears/Nose/Throat oral cavity/pharynx/larynx Overall: oropharyngeal mucosa clear 11/07/2016 None Full Exam - General 1994 Ears/Nose/Throat oral cavity/pharynx/larynx Overall: no masses 11/07/2016 None Full Exam - General 1994 Respiratory auscultation Overall: breath sounds clear bilaterally 11/07/2016 None Full Exam - General 1994 Respiratory respiratory effort/rhythm Overall: no retractions 11/07/2016 None Full Exam - General 1994 Respiratory respiratory effort/rhythm Overall: normal rate 11/07/2016 None Full Exam - General 1994 Cardiovascular extremities Edema present: non-pitting 11/07/2016 None Full Exam - General 1994 Cardiovascular extremities Edema present: bilateral 11/07/2016 lower legs Full Exam - General 1994 Cardiovascular auscultation of heart Overall: regular rate 11/07/2016 None Full Exam - General 1994 Cardiovascular auscultation of heart Overall: normal heart sounds 11/07/2016 None Full Exam - General 1994 Cardiovascular auscultation of heart Overall: no murmurs 11/07/2016 None Full Exam - General 1994 Abdomen abdominal exam Overall: no tenderness 11/07/2016 None Full Exam - General 1994 Abdomen abdominal exam Overall: normal bowel sounds 11/07/2016 None Full Exam - General 1994 Musculoskeletal lower extremity Palpation - thigh: tenderness 11/07/2016 None Full Exam - General 1994 Musculoskeletal lower extremity Palpation - knee: crepitus 11/07/2016 None Full Exam - General 1994 Integument inspection of skin Overall: no rash, lesions 11/07/2016 None Full Exam - General 1994 Neurologic mental status Overall: alert 11/07/2016 None Full Exam - General 1994 Psychiatric orientation/consciousness Overall: oriented to person, place and time 11/07/2016 None Full Exam - General 1994 Constitutional general appearance Overall: well developed 07/26/2016 None Full Exam - General 1994 Constitutional general appearance Overall: in no acute distress 07/26/2016 None Full Exam - General 1994 Constitutional general appearance Overall: well nourished 07/26/2016 None Full Exam - General 1994 Eyes conjunctiva /eyelids Overall: conjunctiva clear 07/26/2016 None Full Exam - General 1994 Eyes conjunctiva /eyelids Overall: cornea clear 07/26/2016 None Full Exam - General 1994 Eyes conjunctiva /eyelids Overall: eyelids normal 07/26/2016 None Full Exam - General 1994 Eyes pupils and irises Overall: pupils equal, round, reactive to light and accomodation 07/26/2016 None Full Exam - General 1994 Ears/Nose/Throat otoscopic exam Overall: external auditory canals clear 07/26/2016 None Full Exam - General 1994 Ears/Nose/Throat otoscopic exam Overall: tympanic membranes clear 07/26/2016 None Full Exam - General 1994 Ears/Nose/Throat oral cavity/pharynx/larynx Overall: oral mucosa clear 07/26/2016 None Full Exam - General 1994 Ears/Nose/Throat oral cavity/pharynx/larynx Overall: oropharyngeal mucosa clear 07/26/2016 None Full Exam - General 1994 Ears/Nose/Throat oral cavity/pharynx/larynx Overall: no masses 07/26/2016 None Full Exam - General 1994 Respiratory auscultation Overall: breath sounds clear bilaterally 07/26/2016 None Full Exam - General 1994 Respiratory respiratory effort/rhythm Overall: no retractions 07/26/2016 None Full Exam - General 1994 Respiratory respiratory effort/rhythm Overall: normal rate 07/26/2016 None Full Exam - General 1994 Cardiovascular extremities Edema present: non-pitting 07/26/2016 None Full Exam - General 1994 Cardiovascular extremities Edema present: bilateral 07/26/2016 lower legs Full Exam - General 1994 Cardiovascular auscultation of heart Overall: regular rate 07/26/2016 None Full Exam - General 1994 Cardiovascular auscultation of heart Overall: normal heart sounds 07/26/2016 None Full Exam - General 1994 Cardiovascular auscultation of heart Overall: no murmurs 07/26/2016 None Full Exam - General 1994 Abdomen abdominal exam Overall: no tenderness 07/26/2016 None Full Exam - General 1994 Abdomen abdominal exam Overall: normal bowel sounds 07/26/2016 None Full Exam - General 1994 Musculoskeletal lower extremity Palpation - thigh: tenderness 07/26/2016 None Full Exam - General 1994 Musculoskeletal lower extremity Palpation - knee: crepitus 07/26/2016 None Full Exam - General 1994 Integument inspection of skin Overall: no rash, lesions 07/26/2016 None Full Exam - General 1994 Neurologic mental status Overall: alert 07/26/2016 None Full Exam - General 1994 Psychiatric orientation/consciousness Overall: oriented to person, place and time 07/26/2016 None Full Exam - General 1994 Constitutional general appearance Overall: well developed 04/25/2016 None Full Exam - General 1994 Constitutional general appearance Overall: in no acute distress 04/25/2016 None Full Exam - General 1994 Constitutional general appearance Overall: well nourished 04/25/2016 None Full Exam - General 1994 Eyes conjunctiva /eyelids Overall: conjunctiva clear 04/25/2016 None Full Exam - General 1994 Eyes conjunctiva /eyelids Overall: cornea clear 04/25/2016 None Full Exam - General 1994 Eyes conjunctiva /eyelids Overall: eyelids normal 04/25/2016 None Full Exam - General 1994 Eyes pupils and irises Overall: pupils equal, round, reactive to light and accomodation 04/25/2016 None Full Exam - General 1994 Ears/Nose/Throat otoscopic exam Overall: external auditory canals clear 04/25/2016 None Full Exam - General 1994 Ears/Nose/Throat otoscopic exam Overall: tympanic membranes clear 04/25/2016 None Full Exam - General 1994 Ears/Nose/Throat oral cavity/pharynx/larynx Overall: oral mucosa clear 04/25/2016 None Full Exam - General 1994 Ears/Nose/Throat oral cavity/pharynx/larynx Overall: oropharyngeal mucosa clear 04/25/2016 None Full Exam - General 1994 Ears/Nose/Throat oral cavity/pharynx/larynx Overall: no masses 04/25/2016 None Full Exam - General 1994 Respiratory auscultation Overall: breath sounds clear bilaterally 04/25/2016 None Full Exam - General 1994 Respiratory respiratory effort/rhythm Overall: no retractions 04/25/2016 None Full Exam - General 1994 Respiratory respiratory effort/rhythm Overall: normal rate 04/25/2016 None Full Exam - General 1994 Cardiovascular extremities Edema present: non-pitting 04/25/2016 None Full Exam - General 1994 Cardiovascular extremities Edema present: bilateral 04/25/2016 lower legs Full Exam - General 1994 Cardiovascular auscultation of heart Overall: regular rate 04/25/2016 None Full Exam - General 1994 Cardiovascular auscultation of heart Overall: normal heart sounds 04/25/2016 None Full Exam - General 1994 Cardiovascular auscultation of heart Overall: no murmurs 04/25/2016 None Full Exam - General 1994 Musculoskeletal lower extremity Palpation - thigh: tenderness 04/25/2016 None Full Exam - General 1994 Musculoskeletal lower extremity Palpation - knee: crepitus 04/25/2016 None Full Exam - General 1994 Integument inspection of skin Overall: no rash, lesions 04/25/2016 None Full Exam - General 1994 Neurologic mental status Overall: alert 04/25/2016 SLUMS - score 5/30 Full Exam - General 1994 Psychiatric orientation/consciousness Overall: oriented to person, place and time 04/25/2016 None Full Exam - General 1994 Abdomen abdominal exam Overall: no tenderness 04/25/2016 None Full Exam - General 1994 Abdomen abdominal exam Overall: normal bowel sounds 04/25/2016 None Full Exam - General 1994 Constitutional general appearance Overall: well developed 10/04/2015 None Full Exam - General 1994 Constitutional general appearance Overall: in no acute distress 10/04/2015 None Full Exam - General 1994 Constitutional general appearance Overall: well nourished 10/04/2015 None Full Exam - General 1994 Eyes conjunctiva /eyelids Overall: conjunctiva clear 10/04/2015 None Full Exam - General 1994 Eyes conjunctiva /eyelids Overall: cornea clear 10/04/2015 None Full Exam - General 1994 Eyes conjunctiva /eyelids Overall: eyelids normal 10/04/2015 None Full Exam - General 1994 Eyes pupils and irises Overall: pupils equal, round, reactive to light and accomodation 10/04/2015 None Full Exam - General 1994 Ears/Nose/Throat otoscopic exam Overall: external auditory canals clear 10/04/2015 None Full Exam - General 1994 Ears/Nose/Throat otoscopic exam Overall: tympanic membranes clear 10/04/2015 None Full Exam - General 1994 Ears/Nose/Throat oral cavity/pharynx/larynx Overall: oral mucosa clear 10/04/2015 None Full Exam - General 1994 Ears/Nose/Throat oral cavity/pharynx/larynx Overall: oropharyngeal mucosa clear 10/04/2015 None Full Exam - General 1994 Ears/Nose/Throat oral cavity/pharynx/larynx Overall: no masses 10/04/2015 None Full Exam - General 1994 Respiratory auscultation Overall: breath sounds clear bilaterally 10/04/2015 None Full Exam - General 1994 Respiratory respiratory effort/rhythm Overall: no retractions 10/04/2015 None Full Exam - General 1994 Respiratory respiratory effort/rhythm Overall: normal rate 10/04/2015 None Full Exam - General 1994 Cardiovascular extremities Edema present: non-pitting 10/04/2015 None Full Exam - General 1994 Cardiovascular extremities Edema present: bilateral 10/04/2015 lower legs Full Exam - General 1994 Cardiovascular auscultation of heart Overall: regular rate 10/04/2015 None Full Exam - General 1994 Cardiovascular auscultation of heart Overall: normal heart sounds 10/04/2015 None Full Exam - General 1994 Cardiovascular auscultation of heart Overall: no murmurs 10/04/2015 None Full Exam - General 1994 Musculoskeletal lower extremity Palpation - thigh: tenderness 10/04/2015 None Full Exam - General 1994 Musculoskeletal lower extremity Palpation - knee: crepitus 10/04/2015 None Full Exam - General 1994 Integument inspection of skin Overall: no rash, lesions 10/04/2015 None Full Exam - General 1994 Psychiatric orientation/consciousness Overall: oriented to person, place and time 10/04/2015 None Full Exam - General 1994 Abdomen abdominal exam Overall: no tenderness 10/04/2015 None Full Exam - General 1994 Abdomen abdominal exam Overall: normal bowel sounds 10/04/2015 None Full Exam - General 1994 Constitutional general appearance Overall: well developed 06/29/2015 None Full Exam - General 1994 Constitutional general appearance Overall: in no acute distress 06/29/2015 None Full Exam - General 1994 Constitutional general appearance Overall: well nourished 06/29/2015 None Full Exam - General 1994 Eyes conjunctiva /eyelids Overall: conjunctiva clear 06/29/2015 None Full Exam - General 1994 Eyes conjunctiva /eyelids Overall: cornea clear 06/29/2015 None Full Exam - General 1994 Eyes conjunctiva /eyelids Overall: eyelids normal 06/29/2015 None Full Exam - General 1994 Eyes pupils and irises Overall: pupils equal, round, reactive to light and accomodation 06/29/2015 None Full Exam - General 1994 Ears/Nose/Throat otoscopic exam Overall: external auditory canals clear 06/29/2015 None Full Exam - General 1994 Ears/Nose/Throat otoscopic exam Overall: tympanic membranes clear 06/29/2015 None Full Exam - General 1994 Ears/Nose/Throat oral cavity/pharynx/larynx Overall: oral mucosa clear 06/29/2015 None Full Exam - General 1994 Ears/Nose/Throat oral cavity/pharynx/larynx Overall: oropharyngeal mucosa clear 06/29/2015 None Full Exam - General 1994 Ears/Nose/Throat oral cavity/pharynx/larynx Overall: no masses 06/29/2015 None Full Exam - General 1994 Respiratory auscultation Overall: breath sounds clear bilaterally 06/29/2015 None Full Exam - General 1994 Respiratory respiratory effort/rhythm Overall: no retractions 06/29/2015 None Full Exam - General 1994 Respiratory respiratory effort/rhythm Overall: normal rate 06/29/2015 None Full Exam - General 1994 Cardiovascular extremities Edema present: non-pitting 06/29/2015 None Full Exam - General 1994 Cardiovascular extremities Edema present: bilateral 06/29/2015 lower legs Full Exam - General 1994 Cardiovascular auscultation of heart Overall: regular rate 06/29/2015 None Full Exam - General 1994 Cardiovascular auscultation of heart Overall: normal heart sounds 06/29/2015 None Full Exam - General 1994 Cardiovascular auscultation of heart Overall: no murmurs 06/29/2015 None Full Exam - General 1994 Musculoskeletal lower extremity Palpation - thigh: tenderness 06/29/2015 None Full Exam - General 1994 Musculoskeletal lower extremity Palpation - knee: crepitus 06/29/2015 None Full Exam - General 1994 Integument inspection of skin Overall: no rash, lesions 06/29/2015 None Full Exam - General 1994 Psychiatric orientation/consciousness Overall: oriented to person, place and time 06/29/2015 None Full Exam - General 1994 Neurologic mental status Overall: alert 06/29/2015 SLUMS - score 5/30 Full Exam - General 1994 Constitutional general appearance Overall: well developed 02/17/2015 None Full Exam - General 1994 Constitutional general appearance Overall: in no acute distress 02/17/2015 None Full Exam - General 1994 Constitutional general appearance Overall: well nourished 02/17/2015 None Full Exam - General 1994 Eyes conjunctiva /eyelids Overall: conjunctiva clear 02/17/2015 None Full Exam - General 1994 Eyes conjunctiva /eyelids Overall: cornea clear 02/17/2015 None Full Exam - General 1994 Eyes conjunctiva /eyelids Overall: eyelids normal 02/17/2015 None Full Exam - General 1994 Eyes pupils and irises Overall: pupils equal, round, reactive to light and accomodation 02/17/2015 None Full Exam - General 1994 Ears/Nose/Throat otoscopic exam Overall: external auditory canals clear 02/17/2015 None Full Exam - General 1994 Ears/Nose/Throat otoscopic exam Overall: tympanic membranes clear 02/17/2015 None Full Exam - General 1994 Ears/Nose/Throat oral cavity/pharynx/larynx Overall: oral mucosa clear 02/17/2015 None Full Exam - General 1994 Ears/Nose/Throat oral cavity/pharynx/larynx Overall: oropharyngeal mucosa clear 02/17/2015 None Full Exam - General 1994 Ears/Nose/Throat oral cavity/pharynx/larynx Overall: no masses 02/17/2015 None Full Exam - General 1994 Respiratory auscultation Overall: breath sounds clear bilaterally 02/17/2015 None Full Exam - General 1994 Respiratory respiratory effort/rhythm Overall: no retractions 02/17/2015 None Full Exam - General 1994 Respiratory respiratory effort/rhythm Overall: normal rate 02/17/2015 None Full Exam - General 1994 Cardiovascular extremities Edema present: non-pitting 02/17/2015 None Full Exam - General 1994 Cardiovascular extremities Edema present: bilateral 02/17/2015 lower legs Full Exam - General 1994 Cardiovascular auscultation of heart Overall: regular rate 02/17/2015 None Full Exam - General 1994 Cardiovascular auscultation of heart Overall: normal heart sounds 02/17/2015 None Full Exam - General 1994 Cardiovascular auscultation of heart Overall: no murmurs 02/17/2015 None Full Exam - General 1994 Musculoskeletal lower extremity Palpation - thigh: tenderness 02/17/2015 None Full Exam - General 1994 Musculoskeletal lower extremity Palpation - knee: crepitus 02/17/2015 None Full Exam - General 1994 Integument inspection of skin Overall: no rash, lesions 02/17/2015 None Full Exam - General 1994 Psychiatric orientation/consciousness Overall: oriented to person, place and time 02/17/2015 None Full Exam - General 1994 Constitutional general appearance Overall: well developed 02/07/2015 None Full Exam - General 1994 Constitutional general appearance Overall: in no acute distress 02/07/2015 None Full Exam - General 1994 Constitutional general appearance Overall: well nourished 02/07/2015 None Full Exam - General 1994 Eyes conjunctiva /eyelids Overall: conjunctiva clear 02/07/2015 None Full Exam - General 1994 Eyes conjunctiva /eyelids Overall: cornea clear 02/07/2015 None Full Exam - General 1994 Eyes conjunctiva /eyelids Overall: eyelids normal 02/07/2015 None Full Exam - General 1994 Eyes pupils and irises Overall: pupils equal, round, reactive to light and accomodation 02/07/2015 None Full Exam - General 1994 Ears/Nose/Throat otoscopic exam Overall: external auditory canals clear 02/07/2015 None Full Exam - General 1994 Ears/Nose/Throat otoscopic exam Overall: tympanic membranes clear 02/07/2015 None Full Exam - General 1994 Ears/Nose/Throat oral cavity/pharynx/larynx Overall: oral mucosa clear 02/07/2015 None Full Exam - General 1994 Ears/Nose/Throat oral cavity/pharynx/larynx Overall: oropharyngeal mucosa clear 02/07/2015 None Full Exam - General 1994 Ears/Nose/Throat oral cavity/pharynx/larynx Overall: no masses 02/07/2015 None Full Exam - General 1994 Respiratory auscultation Overall: breath sounds clear bilaterally 02/07/2015 None Full Exam - General 1994 Respiratory respiratory effort/rhythm Overall: no retractions 02/07/2015 None Full Exam - General 1994 Respiratory respiratory effort/rhythm Overall: normal rate 02/07/2015 None Full Exam - General 1994 Cardiovascular extremities Edema present: non-pitting 02/07/2015 None Full Exam - General 1994 Cardiovascular extremities Edema present: bilateral 02/07/2015 lower legs Full Exam - General 1994 Cardiovascular auscultation of heart Overall: regular rate 02/07/2015 None Full Exam - General 1994 Cardiovascular auscultation of heart Overall: normal heart sounds 02/07/2015 None Full Exam - General 1994 Cardiovascular auscultation of heart Overall: no murmurs 02/07/2015 None Full Exam - General 1994 Musculoskeletal lower extremity Palpation - thigh: tenderness 02/07/2015 None Full Exam - General 1994 Musculoskeletal lower extremity Palpation - knee: crepitus 02/07/2015 None Full Exam - General 1994 Integument inspection of skin Overall: no rash, lesions 02/07/2015 None Full Exam - General 1994 Psychiatric orientation/consciousness Overall: oriented to person, place and time 02/07/2015 None Full Exam - General 1994 Constitutional general appearance Overall: well developed 03/30/2014 None Full Exam - General 1994 Constitutional general appearance Overall: in no acute distress 03/30/2014 None Full Exam - General 1994 Constitutional general appearance Overall: well nourished 03/30/2014 None Full Exam - General 1994 Eyes conjunctiva /eyelids Overall: conjunctiva clear 03/30/2014 None Full Exam - General 1994 Eyes conjunctiva /eyelids Overall: cornea clear 03/30/2014 None Full Exam - General 1994 Eyes conjunctiva /eyelids Overall: eyelids normal 03/30/2014 None Full Exam - General 1994 Eyes pupils and irises Overall: pupils equal, round, reactive to light and accomodation 03/30/2014 None Full Exam - General 1994 Respiratory auscultation Overall: breath sounds clear bilaterally 03/30/2014 None Full Exam - General 1994 Respiratory respiratory effort/rhythm Overall: no retractions 03/30/2014 None Full Exam - General 1994 Respiratory respiratory effort/rhythm Overall: normal rate 03/30/2014 None Full Exam - General 1994 Cardiovascular extremities Edema present: non-pitting 03/30/2014 None Full Exam - General 1994 Cardiovascular extremities Edema present: bilateral 03/30/2014 lower legs Full Exam - General 1994 Cardiovascular auscultation of heart Overall: regular rate 03/30/2014 None Full Exam - General 1994 Cardiovascular auscultation of heart Overall: normal heart sounds 03/30/2014 None Full Exam - General 1994 Cardiovascular auscultation of heart Overall: no murmurs 03/30/2014 None Full Exam - General 1994 Integument inspection of skin Overall: no rash, lesions 03/30/2014 None Full Exam - General 1994 Psychiatric orientation/consciousness Overall: oriented to person, place and time 03/30/2014 None Full Exam - General 1994 Ears/Nose/Throat oral cavity/pharynx/larynx Overall: oropharyngeal mucosa clear 03/30/2014 None Full Exam - General 1994 Ears/Nose/Throat oral cavity/pharynx/larynx Overall: no masses 03/30/2014 None Full Exam - General 1994 Ears/Nose/Throat oral cavity/pharynx/larynx Overall: oral mucosa clear 03/30/2014 None Full Exam - General 1994 Ears/Nose/Throat otoscopic exam Overall: tympanic membranes clear 03/30/2014 None Full Exam - General 1994 Ears/Nose/Throat otoscopic exam Overall: external auditory canals clear 03/30/2014 None Full Exam - General 1994 Musculoskeletal lower extremity Palpation - knee: crepitus 03/30/2014 None Full Exam - General 1994 Musculoskeletal lower extremity Palpation - thigh: tenderness 03/30/2014 None Full Exam - General 1994 Constitutional general appearance Overall: well developed 12/24/2013 None Full Exam - General 1994 Constitutional general appearance Overall: in no acute distress 12/24/2013 None Full Exam - General 1994 Constitutional general appearance Overall: well nourished 12/24/2013 None Full Exam - General 1994 Eyes conjunctiva /eyelids Overall: conjunctiva clear 12/24/2013 None Full Exam - General 1994 Eyes conjunctiva /eyelids Overall: cornea clear 12/24/2013 None Full Exam - General 1994 Eyes conjunctiva /eyelids Overall: eyelids normal 12/24/2013 None Full Exam - General 1994 Eyes pupils and irises Overall: pupils equal, round, reactive to light and accomodation 12/24/2013 None Full Exam - General 1994 Respiratory auscultation Overall: breath sounds clear bilaterally 12/24/2013 None Full Exam - General 1994 Respiratory respiratory effort/rhythm Overall: no retractions 12/24/2013 None Full Exam - General 1994 Respiratory respiratory effort/rhythm Overall: normal rate 12/24/2013 None Full Exam - General 1994 Cardiovascular extremities Edema present: non-pitting 12/24/2013 None Full Exam - General 1994 Cardiovascular extremities Edema present: bilateral 12/24/2013 lower legs Full Exam - General 1994 Cardiovascular auscultation of heart Overall: regular rate 12/24/2013 None Full Exam - General 1994 Cardiovascular auscultation of heart Overall: normal heart sounds 12/24/2013 None Full Exam - General 1994 Cardiovascular auscultation of heart Overall: no murmurs 12/24/2013 None Full Exam - General 1994 Musculoskeletal lower extremity Inspection - foot: a normal exam 12/24/2013 None Full Exam - General 1994 Integument inspection of skin Overall: no rash, lesions 12/24/2013 None Full Exam - General 1994 Psychiatric orientation/consciousness Overall: oriented to person, place and time 12/24/2013 None Full Exam - General 1994 Constitutional general appearance Overall: well developed 12/01/2013 None Full Exam - General 1994 Constitutional general appearance Overall: in no acute distress 12/01/2013 None Full Exam - General 1994 Constitutional general appearance Overall: well nourished 12/01/2013 None Full Exam - General 1994 Eyes conjunctiva /eyelids Overall: conjunctiva clear 12/01/2013 None Full Exam - General 1994 Eyes conjunctiva /eyelids Overall: cornea clear 12/01/2013 None Full Exam - General 1994 Eyes conjunctiva /eyelids Overall: eyelids normal 12/01/2013 None Full Exam - General 1994 Eyes pupils and irises Overall: pupils equal, round, reactive to light and accomodation 12/01/2013 None Full Exam - General 1994 Respiratory auscultation Overall: breath sounds clear bilaterally 12/01/2013 None Full Exam - General 1994 Respiratory respiratory effort/rhythm Overall: no retractions 12/01/2013 None Full Exam - General 1994 Respiratory respiratory effort/rhythm Overall: normal rate 12/01/2013 None Full Exam - General 1994 Cardiovascular extremities Edema present: non-pitting 12/01/2013 None Full Exam - General 1994 Cardiovascular extremities Edema present: bilateral 12/01/2013 lower legs Full Exam - General 1994 Cardiovascular auscultation of heart Overall: regular rate 12/01/2013 None Full Exam - General 1994 Cardiovascular auscultation of heart Overall: normal heart sounds 12/01/2013 None Full Exam - General 1994 Cardiovascular auscultation of heart Overall: no murmurs 12/01/2013 None Full Exam - General 1994 Integument inspection of skin Overall: no rash, lesions 12/01/2013 None Full Exam - General 1994 Integument inspection of skin Pigmentation: ecchymosis 12/01/2013 bilateral upper arms Full Exam - General 1994 Psychiatric orientation/consciousness Overall: oriented to person, place and time 12/01/2013 None Full Exam - General 1994 Musculoskeletal spine, ribs and pelvis Sacroiliac joints: tender left sacroiliac joint 12/01/2013 None Full Exam - General 1994 Constitutional general appearance Overall: well developed 11/27/2013 None Full Exam - General 1994 Constitutional general appearance Overall: in no acute distress 11/27/2013 None Full Exam - General 1994 Constitutional general appearance Overall: well nourished 11/27/2013 None Full Exam - General 1994 Eyes conjunctiva /eyelids Overall: conjunctiva clear 11/27/2013 None Full Exam - General 1995 Eyes conjunctiva /eyelids Overall: cornea clear 11/27/2013 None Full Exam - General 1994 Eyes conjunctiva /eyelids Overall: eyelids normal 11/27/2013 None Full Exam - General 1994 Eyes pupils and irises Overall: pupils equal, round, reactive to light and accomodation 11/27/2013 None Full Exam - General 1994 Respiratory auscultation Overall: breath sounds clear bilaterally 11/27/2013 None Full Exam - General 1994 Respiratory respiratory effort/rhythm Overall: no retractions 11/27/2013 None Full Exam - General 1994 Respiratory respiratory effort/rhythm Overall: normal rate 11/27/2013 None Full Exam - General 1994 Cardiovascular extremities Edema present: non-pitting 11/27/2013 None Full Exam - General 1994 Cardiovascular extremities Edema present: bilateral 11/27/2013 lower legs Full Exam - General 1994 Cardiovascular auscultation of heart Overall: regular rate 11/27/2013 None Full Exam - General 1994 Cardiovascular auscultation of heart Overall: normal heart sounds 11/27/2013 None Full Exam - General 1994 Cardiovascular auscultation of heart Overall: no murmurs 11/27/2013 None Full Exam - General 1994 Musculoskeletal lower extremity Inspection - foot: a normal exam 11/27/2013 None Full Exam - General 1994 Integument inspection of skin Overall: no rash, lesions 11/27/2013 None Full Exam - General 1994 Integument inspection of skin Pigmentation: ecchymosis 11/27/2013 bilateral upper arms Full Exam - General 1994 Psychiatric orientation/consciousness Overall: oriented to person, place and time 11/27/2013 None Full Exam - General 1994 Constitutional general appearance Overall: well developed 08/27/2013 None Full Exam - General 1994 Constitutional general appearance Overall: in no acute distress 08/27/2013 None Full Exam - General 1994 Constitutional general appearance Overall: well nourished 08/27/2013 None Full Exam - General 1994 Eyes conjunctiva /eyelids Overall: conjunctiva clear 08/27/2013 None Full Exam - General 1994 Eyes conjunctiva /eyelids Overall: cornea clear 08/27/2013 None Full Exam - General 1994 Eyes conjunctiva /eyelids Overall: eyelids normal 08/27/2013 None Full Exam - General 1994 Eyes pupils and irises Overall: pupils equal, round, reactive to light and accomodation 08/27/2013 None Full Exam - General 1995 Respiratory auscultation Overall: breath sounds clear bilaterally 08/27/2013 None Full Exam - General 1994 Respiratory respiratory effort/rhythm Overall: no retractions 08/27/2013 None Full Exam - General 1994 Respiratory respiratory effort/rhythm Overall: normal rate 08/27/2013 None Full Exam - General 1994 Cardiovascular extremities Edema present: non-pitting 08/27/2013 None Full Exam - General 1994 Cardiovascular extremities Edema present: bilateral 08/27/2013 lower legs Full Exam - General 1994 Cardiovascular auscultation of heart Overall: regular rate 08/27/2013 None Full Exam - General 1994 Cardiovascular auscultation of heart Overall: normal heart sounds 08/27/2013 None Full Exam - General 1994 Cardiovascular auscultation of heart Overall: no murmurs 08/27/2013 None Full Exam - General 1994 Musculoskeletal lower extremity Inspection - foot: a normal exam 08/27/2013 None Full Exam - General 1994 Integument inspection of skin Overall: no rash, lesions 08/27/2013 None Full Exam - General 1994 Integument inspection of skin Pigmentation: ecchymosis 08/27/2013 bilateral upper arms Full Exam - General 1994 Psychiatric orientation/consciousness Overall: oriented to person, place and time 08/27/2013 None Full Exam - General 1994 Constitutional general appearance Development: well developed 05/20/2013 None Full Exam - General 1994 Constitutional general appearance Development: appears stated age 1205/20/2013 None Full Exam - General 1994 Constitutional general appearance Development: appears older than stated age 1205/20/2013 None Full Exam - General 1994 Constitutional general appearance Hygiene/Attention to Grooming: good hygiene 05/20/2013 None Full Exam - General 1994 Eyes conjunctiva /eyelids Overall: conjunctiva clear 05/20/2013 None Full Exam - General 1994 Eyes conjunctiva /eyelids Overall: eyelids normal 05/20/2013 None Full Exam - General 1994 Ears/Nose/Throat oral cavity/pharynx/larynx Overall: oral mucosa clear 05/20/2013 None Full Exam - General 1994 Ears/Nose/Throat oral cavity/pharynx/larynx Overall: oropharyngeal mucosa clear 05/20/2013 None Full Exam - General 1994 Ears/Nose/Throat oral cavity/pharynx/larynx Overall: no masses 05/20/2013 None Full Exam - General 1994 Respiratory respiratory effort/rhythm Overall: no retractions 05/20/2013 None Full Exam - General 1995 Respiratory respiratory effort/rhythm Overall: normal rate 05/20/2013 None Full Exam - General 1994 Cardiovascular auscultation of heart Overall: regular rate 05/20/2013 None Full Exam - General 1995 Cardiovascular auscultation of heart Overall: normal heart sounds 05/20/2013 None Full Exam - General 1995 Lymphatic neck nodes Overall: anterior cervical chain benign 05/20/2013 None Full Exam - General 1995 Lymphatic neck nodes Overall: posterior cervical chain benign 05/20/2013 None Full Exam - General 1995 Psychiatric orientation/consciousness Oriented to person: yes 05/20/2013 None Full Exam - General 1995 Psychiatric orientation/consciousness Oriented to place: yes 05/20/2013 None Full Exam - General 1995 Psychiatric orientation/consciousness Oriented to time: no 05/20/2013 None Full Exam - General 1995 Psychiatric orientation/consciousness Level of consciousness: alert 05/20/2013 None Full Exam - General 1994 Psychiatric mood and affect Overall: normal mood and affect 05/20/2013 None Full Exam - General 1994 Respiratory auscultation Upper lung field: bronchial 05/20/2013 None Full Exam - General 1994 Respiratory auscultation Lower lung field: a normal exam 05/20/2013 None Full Exam - General 1994 Constitutional general appearance Development: appears older than stated age 1104/30/2013 None Full Exam - General 1994 Constitutional general appearance Development: appears stated age 1104/30/2013 None Full Exam - General 1994 Constitutional general appearance Development: well developed 04/30/2013 None Full Exam - General 1994 Constitutional general appearance Hygiene/Attention to Grooming: good hygiene 04/30/2013 None Full Exam - General 1994 Eyes conjunctiva /eyelids Overall: conjunctiva clear 04/30/2013 None Full Exam - General 1994 Eyes conjunctiva /eyelids Overall: eyelids normal 04/30/2013 None Full Exam - General 1994 Respiratory auscultation Overall: breath sounds clear bilaterally 04/30/2013 None Full Exam - General 1994 Respiratory respiratory effort/rhythm Overall: no retractions 04/30/2013 None Full Exam - General 1994 Respiratory respiratory effort/rhythm Overall: normal rate 04/30/2013 None Full Exam - General 1994 Cardiovascular auscultation of heart Overall: normal heart sounds 04/30/2013 None Full Exam - General 1994 Cardiovascular auscultation of heart Overall: regular rate 04/30/2013 None Full Exam - General 1994 Psychiatric mood and affect Overall: normal mood and affect 04/30/2013 None Full Exam - General 1994 Lymphatic neck nodes Overall: anterior cervical chain benign 04/30/2013 None Full Exam - General 1994 Lymphatic neck nodes Overall: posterior cervical chain benign 04/30/2013 None Full Exam - General 1995 Ears/Nose/Throat oral cavity/pharynx/larynx Overall: oropharyngeal mucosa clear 04/30/2013 None Full Exam - General 1995 Ears/Nose/Throat oral cavity/pharynx/larynx Overall: no masses 04/30/2013 None Full Exam - General 1995 Ears/Nose/Throat oral cavity/pharynx/larynx Overall: oral mucosa clear 04/30/2013 None Full Exam - General 1994 Psychiatric orientation/consciousness Oriented to person: yes 04/30/2013 None Full Exam - General 1994 Psychiatric orientation/consciousness Oriented to place: yes 04/30/2013 None Full Exam - General 1994 Psychiatric orientation/consciousness Oriented to time: no 04/30/2013 None Full Exam - General 1994 Psychiatric orientation/consciousness Level of consciousness: alert 04/30/2013 None Full Exam - General 1994 Constitutional general appearance Development: well developed 04/16/2013 None Full Exam - General 1994 Constitutional general appearance Development: appears stated age 1004/16/2013 None Full Exam - General 1994 Constitutional general appearance Development: appears older than stated age 1004/16/2013 None Full Exam - General 1994 Constitutional general appearance Hygiene/Attention to Grooming: good hygiene 04/16/2013 None Full Exam - General 1994 Eyes conjunctiva /eyelids Overall: conjunctiva clear 04/16/2013 None Full Exam - General 1994 Eyes conjunctiva /eyelids Overall: eyelids normal 04/16/2013 None Full Exam - General 1994 Ears/Nose/Throat oral cavity/pharynx/larynx Overall: oral mucosa clear 04/16/2013 None Full Exam - General 1994 Ears/Nose/Throat oral cavity/pharynx/larynx Overall: oropharyngeal mucosa clear 04/16/2013 None Full Exam - General 1994 Ears/Nose/Throat oral cavity/pharynx/larynx Overall: no masses 04/16/2013 None Full Exam - General 1994 Respiratory auscultation Overall: breath sounds clear bilaterally 04/16/2013 None Full Exam - General 1994 Respiratory respiratory effort/rhythm Overall: no retractions 04/16/2013 None Full Exam - General 1994 Respiratory respiratory effort/rhythm Overall: normal rate 04/16/2013 None Full Exam - General 1994 Cardiovascular auscultation of heart Overall: regular rate 04/16/2013 None Full Exam - General 1995 Cardiovascular auscultation of heart Overall: normal heart sounds 04/16/2013 None Full Exam - General 1995 Lymphatic neck nodes Overall: anterior cervical chain benign 04/16/2013 None Full Exam - General 1995 Lymphatic neck nodes Overall: posterior cervical chain benign 04/16/2013 None Full Exam - General 1995 Psychiatric orientation/consciousness Oriented to person: yes 04/16/2013 None Full Exam - General 1995 Psychiatric orientation/consciousness Oriented to place: yes 04/16/2013 None Full Exam - General 1995 Psychiatric orientation/consciousness Oriented to time: no 04/16/2013 None Full Exam - General 1995 Psychiatric orientation/consciousness Level of consciousness: alert 04/16/2013 None Full Exam - General 1995 Psychiatric mood and affect Overall: normal mood and affect 04/16/2013 None Full Exam - General 1995 Neurologic cranial nerves Overall: crainial nerves 2 - 12 grossly intact 04/16/2013 None Full Exam - General 1995 Constitutional general appearance Overall: well nourished 03/10/2013 None Full Exam - General 1994 Constitutional general appearance Overall: well developed 03/10/2013 None Full Exam - General 1995 Constitutional general appearance Overall: in no acute distress 03/10/2013 None Full Exam - General 1994 Eyes pupils and irises Overall: pupils equal, round, reactive to light and accomodation 03/10/2013 None Full Exam - General 1994 Eyes conjunctiva /eyelids Overall: conjunctiva clear 03/10/2013 None Full Exam - General 1994 Eyes conjunctiva /eyelids Overall: eyelids normal 03/10/2013 None Full Exam - General 1994 Eyes conjunctiva /eyelids Overall: cornea clear 03/10/2013 None Full Exam - General 1994 Respiratory auscultation Overall: breath sounds clear bilaterally 03/10/2013 None Full Exam - General 1994 Respiratory respiratory effort/rhythm Overall: normal rate 03/10/2013 None Full Exam - General 1994 Respiratory respiratory effort/rhythm Overall: no retractions 03/10/2013 None Full Exam - General 1994 Cardiovascular auscultation of heart Overall: regular rate 03/10/2013 None Full Exam - General 1994 Cardiovascular auscultation of heart Overall: normal heart sounds 03/10/2013 None Full Exam - General 1994 Cardiovascular auscultation of heart Overall: no murmurs 03/10/2013 None Full Exam - General 1994 Cardiovascular extremities Edema present: non-pitting 03/10/2013 None Full Exam - General 1994 Cardiovascular extremities Edema present: bilateral 03/10/2013 lower legs Full Exam - General 1994 Integument inspection of skin Overall: no rash, lesions 03/10/2013 None Full Exam - General 1994 Integument inspection of skin Pigmentation: ecchymosis 03/10/2013 bilateral upper arms Full Exam - General 1994 Musculoskeletal lower extremity Inspection - foot: a normal exam 03/10/2013 None Full Exam - General 1994 Psychiatric orientation/consciousness Overall: oriented to person, place and time 03/10/2013 None Full Exam - General 1994 Constitutional general appearance Overall: well developed 12/08/2012 None Full Exam - General 1994 Constitutional general appearance Overall: in no acute distress 12/08/2012 None Full Exam - General 1994 Constitutional general appearance Overall: well nourished 12/08/2012 None Full Exam - General 1994 Integument inspection of skin Location: right foot 12/08/2012 second toe with large blister and callus - wound bed healthy tissue - callus formation around endge of previously debrided tissue - shows improved healing after callus removed with sharp debridement, dressed with neosporin and gauze. Full Exam - General 1994 Psychiatric orientation/consciousness Overall: oriented to person, place and time 12/08/2012 None Full Exam - General 1994 Ears/Nose/Throat oral cavity/pharynx/larynx Overall: no masses 12/02/2012 None Full Exam - General 1994 Respiratory auscultation Overall: breath sounds clear bilaterally 12/02/2012 None Full Exam - General 1994 Respiratory respiratory effort/rhythm Overall: no retractions 12/02/2012 None Full Exam - General 1994 Respiratory respiratory effort/rhythm Overall: normal rate 12/02/2012 None Full Exam - General 1994 Cardiovascular extremities Overall: no clubbing 12/02/2012 None Full Exam - General 1994 Cardiovascular auscultation of heart Overall: regular rate 12/02/2012 None Full Exam - General 1994 Cardiovascular auscultation of heart Overall: normal heart sounds 12/02/2012 None Full Exam - General 1994 Cardiovascular auscultation of heart Systolic murmur: midsystolic 12/02/2012 None Full Exam - General 1994 Musculoskeletal lower extremity Inspection - thigh: normal appearance 12/02/2012 None Full Exam - General 1994 Musculoskeletal lower extremity Palpation - thigh: tenderness 12/02/2012 None Full Exam - General 1994 Musculoskeletal spine, ribs and pelvis Posture: kyphosis 12/02/2012 None Full Exam - General 1995 Musculoskeletal spine, ribs and pelvis Posture: lordosis 12/02/2012 None Full Exam - General 1994 Musculoskeletal gait and station Station: kyphosis 12/02/2012 None Full Exam - General 1995 Psychiatric orientation/consciousness Overall: oriented to person, place and time 12/02/2012 None Full Exam - General 1995 Constitutional general appearance Overall: well developed 12/02/2012 None Full Exam - General 1994 Constitutional general appearance Overall: in no acute distress 12/02/2012 None Full Exam - General 1995 Constitutional general appearance Overall: well nourished 12/02/2012 None Full Exam - General 1994 Eyes pupils and irises Overall: pupils equal, round, reactive to light and accomodation 12/02/2012 None Full Exam - General 1995 Ears/Nose/Throat oral cavity/pharynx/larynx Overall: oral mucosa clear 12/02/2012 None Full Exam - General 1995 Ears/Nose/Throat oral cavity/pharynx/larynx Overall: oropharyngeal mucosa clear 12/02/2012 None Full Exam - General 1994 Psychiatric mood and affect Overall: normal mood and affect 12/02/2012 None Full Exam - General 1994 Psychiatric mood and affect Mood: happy 12/02/2012 None Full Exam - General 1994 Integument inspection of skin Location: right foot 12/02/2012 second toe with large blister and callus - pustular discharge from lesion with large depridement of tissue necessary to get down to healthy viable tissue. Full Exam - General 1994 Constitutional general appearance Overall: well developed 10/08/2012 None Full Exam - General 1994 Constitutional general appearance Overall: in no acute distress 10/08/2012 None Full Exam - General 1994 Constitutional general appearance Overall: well nourished 10/08/2012 None Full Exam - General 1994 Eyes pupils and irises Overall: pupils equal, round, reactive to light and accomodation 10/08/2012 None Full Exam - General 1995 Ears/Nose/Throat oral cavity/pharynx/larynx Overall: oral mucosa clear 10/08/2012 None Full Exam - General 1995 Ears/Nose/Throat oral cavity/pharynx/larynx Overall: oropharyngeal mucosa clear 10/08/2012 None Full Exam - General 1994 Ears/Nose/Throat oral cavity/pharynx/larynx Overall: no masses 10/08/2012 None Full Exam - General 1994 Neck thyroid Overall: normal size None Full Exam - General 1994 Neck thyroid Overall: normal consistency 10/08/2012 None Full Exam - General 1994 Neck thyroid Overall: nontender 2012 None Full Exam - General 1994 Neck thyroid Overall: no mass lesions 10/08/2012 None Full Exam - General 1994 Respiratory auscultation Overall: breath sounds clear bilaterally 10/08/2012 None Full Exam - General 1994 Respiratory respiratory effort/rhythm Overall: no retractions 10/08/2012 None Full Exam - General 1994 Respiratory respiratory effort/rhythm Overall: normal rate 10/08/2012 None Full Exam - General 1994 Cardiovascular extremities Overall: no clubbing 10/08/2012 None Full Exam - General 1994 Cardiovascular auscultation of heart Overall: regular rate 10/08/2012 None Full Exam - General 1994 Cardiovascular auscultation of heart Overall: normal heart sounds 10/08/2012 None Full Exam - General 1994 Cardiovascular auscultation of heart Systolic murmur: midsystolic 10/08/2012 None Full Exam - General 1994 Abdomen abdominal exam Overall: no tenderness 10/08/2012 None Full Exam - General 1994 Abdomen abdominal exam Overall: normal bowel sounds 10/08/2012 None Full Exam - General 1994 Musculoskeletal lower extremity Inspection - thigh: normal appearance 10/08/2012 None Full Exam - General 1994 Musculoskeletal lower extremity Palpation - thigh: tenderness 10/08/2012 None Full Exam - General 1994 Musculoskeletal spine, ribs and pelvis Posture: kyphosis 10/08/2012 None Full Exam - General 1994 Musculoskeletal spine, ribs and pelvis Posture: lordosis 10/08/2012 None Full Exam - General 1994 Musculoskeletal gait and station Gait: unable to turn quickly 10/08/2012 None Full Exam - General 1994 Musculoskeletal gait and station Station: kyphosis 10/08/2012 None Full Exam - General 1994 Neurologic mental status Level of alertness: alert 10/08/2012 None Full Exam - General 1994 Neurologic mental status Orientation: What is the year/season/date/day/month (5): 10/08/2012 None Full Exam - General 1994 Neurologic mental status Orientation: Where are we - state/country/town/hospital/floor (5): 5 10/08/2012 None Full Exam - General 1994 Neurologic mental status Registration: Name 3 objects. 1 point for each object recalled (3): 3 10/08/2012 None Full Exam - General 1995 Neurologic mental status Attention/calculation: _ Serial 7's or "world" spelled backward (5): 5 10/08/2012 None Full Exam - General 1995 Neurologic mental status Recall: Recall of objects mentioned above after 5 min. (3): 1 10/08/2012 None Full Exam - General 1995 Neurologic mental status Language: Name pencil and watch (2): 2 10/08/2012 None Full Exam - General 1995 Psychiatric orientation/consciousness Overall: oriented to person, place and time 10/08/2012 None Full Exam - General 1995 Psychiatric mood and affect Overall: normal mood and affect 10/08/2012 None Full Exam - General 1995 Psychiatric mood and affect Mood: happy 10/08/2012 None Full Exam - General 1995 Constitutional general appearance Overall: well developed 08/27/2012 None Full Exam - General 1994 Constitutional general appearance Overall: in no acute distress 08/27/2012 None Full Exam - General 1994 Constitutional general appearance Overall: well nourished 08/27/2012 None Full Exam - General 1994 Psychiatric orientation/consciousness Overall: oriented to person, place and time 08/27/2012 None Full Exam - General 1994 Integument inspection of skin Location: right arm 08/27/2012 bruise noted to right wrist Full Exam - General 1994 Cardiovascular auscultation of heart Overall: regular rate 08/27/2012 None Full Exam - General 1994 Cardiovascular auscultation of heart Overall: normal heart sounds 08/27/2012 None Full Exam - General 1994 Cardiovascular auscultation of heart Murmur: previously known murmur unchanged 08/27/2012 None Full Exam - General 1994 Cardiovascular auscultation of heart Systolic murmur: midsystolic 08/27/2012 None Full Exam - General 1994 Respiratory auscultation Overall: breath sounds clear bilaterally 08/27/2012 None Full Exam - General 1994 Respiratory respiratory effort/rhythm Overall: normal rate 08/27/2012 None Full Exam - General 1994 Respiratory respiratory effort/rhythm Overall: no retractions 08/27/2012 None Full Exam - General 1994 Eyes conjunctiva /eyelids Overall: conjunctiva clear 08/27/2012 None Full Exam - General 1994 Eyes conjunctiva /eyelids Overall: eyelids normal 08/27/2012 None Full Exam - General 1994 Eyes conjunctiva /eyelids Overall: cornea clear 08/27/2012 None Full Exam - General 1994 Cardiovascular auscultation of heart Overall: normal heart sounds 07/09/2012 None Full Exam - General 1994 Cardiovascular auscultation of heart Systolic murmur: midsystolic 07/09/2012 None Full Exam - General 1994 Abdomen abdominal exam Overall: no tenderness 07/09/2012 None Full Exam - General 1994 Abdomen abdominal exam Overall: normal bowel sounds 07/09/2012 None Full Exam - General 1994 Musculoskeletal lower extremity Inspection - thigh: normal appearance 07/09/2012 None Full Exam - General 1994 Musculoskeletal lower extremity Palpation - thigh: tenderness 07/09/2012 None Full Exam - General 1994 Musculoskeletal spine, ribs and pelvis Posture: kyphosis 07/09/2012 None Full Exam - General 1994 Musculoskeletal spine, ribs and pelvis Posture: lordosis 07/09/2012 None Full Exam - General 1994 Musculoskeletal gait and station Gait: unable to turn quickly 07/09/2012 None Full Exam - General 1994 Musculoskeletal gait and station Station: kyphosis 07/09/2012 None Full Exam - General 1994 Neurologic mental status Level of alertness: alert 07/09/2012 None Full Exam - General 1994 Neurologic mental status Orientation: What is the year/season/date/day/month (5): 5 07/09/2012 None Full Exam - General 1994 Neurologic mental status Orientation: Where are we - state/country/town/hospital/floor (5): 5 07/09/2012 None Full Exam - General 1994 Neurologic mental status Registration: Name 3 objects. 1 point for each object recalled (3): 3 07/09/2012 None Full Exam - General 1994 Neurologic mental status Attention/calculation: _ Serial 7's or "world" spelled backward (5): 5 07/09/2012 None Full Exam - General 1994 Neurologic mental status Recall: Recall of objects mentioned above after 5 min. (3): 1 07/09/2012 None Full Exam - General 1994 Neurologic mental status Language: Name pencil and watch (2): 2 07/09/2012 None Full Exam - General 1994 Psychiatric orientation/consciousness Overall: oriented to person, place and time 07/09/2012 None Full Exam - General 1994 Psychiatric mood and affect Overall: normal mood and affect 07/09/2012 None Full Exam - General 1994 Psychiatric mood and affect Mood: happy 07/09/2012 None Full Exam - General 1994 Constitutional general appearance Overall: well developed 07/09/2012 None Full Exam - General 1994 Constitutional general appearance Overall: in no acute distress 07/09/2012 None Full Exam - General 1994 Constitutional general appearance Overall: well nourished 07/09/2012 None Full Exam - General 1994 Eyes pupils and irises Overall: pupils equal, round, reactive to light and accomodation 07/09/2012 None Full Exam - General 1994 Ears/Nose/Throat oral cavity/pharynx/larynx Overall: oral mucosa clear 07/09/2012 None Full Exam - General 1994 Ears/Nose/Throat oral cavity/pharynx/larynx Overall: oropharyngeal mucosa clear 07/09/2012 None Full Exam - General 1995 Ears/Nose/Throat oral cavity/pharynx/larynx Overall: no masses 07/09/2012 None Full Exam - General 1994 Neck thyroid Overall: normal size None Full Exam - General 1994 Neck thyroid Overall: normal consistency 07/09/2012 None Full Exam - General 1994 Neck thyroid Overall: nontender 2012 None Full Exam - General 1994 Neck thyroid Overall: no mass lesions 07/09/2012 None Full Exam - General 1994 Respiratory auscultation Overall: breath sounds clear bilaterally 07/09/2012 None Full Exam - General 1994 Respiratory respiratory effort/rhythm Overall: no retractions 07/09/2012 None Full Exam - General 1994 Respiratory respiratory effort/rhythm Overall: normal rate 07/09/2012 None Full Exam - General 1994 Cardiovascular extremities Overall: no clubbing 07/09/2012 None Full Exam - General 1994 Cardiovascular auscultation of heart Overall: regular rate 07/09/2012 None Full Exam - General 1994 Constitutional general appearance Overall: well developed 05/19/2012 None Full Exam - General 1994 Constitutional general appearance Overall: in no acute distress 05/19/2012 None Full Exam - General 1994 Constitutional general appearance Overall: well nourished 05/19/2012 None Full Exam - General 1994 Eyes pupils and irises Overall: pupils equal, round, reactive to light and accomodation 05/19/2012 None Full Exam - General 1994 Ears/Nose/Throat oral cavity/pharynx/larynx Overall: oral mucosa clear 05/19/2012 None Full Exam - General 1994 Ears/Nose/Throat oral cavity/pharynx/larynx Overall: oropharyngeal mucosa clear 05/19/2012 None Full Exam - General 1994 Ears/Nose/Throat oral cavity/pharynx/larynx Overall: no masses 05/19/2012 None Full Exam - General 1994 Musculoskeletal lower extremity Palpation - thigh: tenderness 05/19/2012 None Full Exam - General 1994 Musculoskeletal spine, ribs and pelvis Posture: kyphosis 05/19/2012 None Full Exam - General 1994 Musculoskeletal spine, ribs and pelvis Posture: lordosis 05/19/2012 None Full Exam - General 1994 Musculoskeletal gait and station Gait: unable to turn quickly 05/19/2012 None Full Exam - General 1994 Musculoskeletal gait and station Station: kyphosis 05/19/2012 None Full Exam - General 1994 Neurologic mental status Level of alertness: alert 05/19/2012 None Full Exam - General 1994 Neurologic mental status Orientation: What is the year/season/date/day/month (5): 5 05/19/2012 None Full Exam - General 1994 Neurologic mental status Orientation: Where are we - state/country/town/hospital/floor (5): 5 05/19/2012 None Full Exam - General 1994 Neurologic mental status Registration: Name 3 objects. 1 point for each object recalled (3): 3 05/19/2012 None Full Exam - General 1994 Neurologic mental status Attention/calculation: _ Serial 7's or "world" spelled backward (5): 5 05/19/2012 None Full Exam - General 1994 Neurologic mental status Recall: Recall of objects mentioned above after 5 min. (3): 1 05/19/2012 None Full Exam - General 1994 Neurologic mental status Language: Name pencil and watch (2): 2 05/19/2012 None Full Exam - General 1994 Neck thyroid Overall: normal size 08/2011 None Full Exam - General 1994 Neck thyroid Overall: normal consistency 05/19/2012 None Full Exam - General 1994 Neck thyroid Overall: nontender 2011 None Full Exam - General 1994 Neck thyroid Overall: no mass lesions 05/19/2012 None Full Exam - General 1994 Respiratory auscultation Overall: breath sounds clear bilaterally 05/19/2012 None Full Exam - General 1994 Respiratory respiratory effort/rhythm Overall: no retractions 05/19/2012 None Full Exam - General 1994 Respiratory respiratory effort/rhythm Overall: normal rate 05/19/2012 None Full Exam - General 1994 Cardiovascular extremities Overall: no clubbing 05/19/2012 None Full Exam - General 1994 Cardiovascular auscultation of heart Overall: regular rate 05/19/2012 None Full Exam - General 1994 Cardiovascular auscultation of heart Overall: normal heart sounds 05/19/2012 None Full Exam - General 1994 Cardiovascular auscultation of heart Systolic murmur: midsystolic 05/19/2012 None Full Exam - General 1995 Abdomen abdominal exam Overall: no tenderness 05/19/2012 None Full Exam - General 1995 Abdomen abdominal exam Overall: normal bowel sounds 05/19/2012 None Full Exam - General 1995 Musculoskeletal lower extremity Inspection - thigh: normal appearance 05/19/2012 None Full Exam - General 1994 Psychiatric orientation/consciousness Overall: oriented to person, place and time 05/19/2012 None Full Exam - General 1994 Psychiatric mood and affect Overall: normal mood and affect 05/19/2012 None Full Exam - General 1995 Psychiatric mood and affect Mood: happy 05/19/2012 None Full Exam - General 1995 Musculoskeletal lower extremity Inspection - thigh: normal appearance 04/28/2012 None Full Exam - General 1994 Musculoskeletal lower extremity Palpation - thigh: tenderness 04/28/2012 None Full Exam - General 1994 Musculoskeletal lower extremity Palpation - thigh: tenderness 04/28/2012 None Full Exam - General 1994 Constitutional general appearance Overall: well nourished 04/28/2012 None Full Exam - General 1994 Constitutional general appearance Overall: well developed 04/28/2012 None Full Exam - General 1994 Constitutional general appearance Overall: in no acute distress 04/28/2012 None Full Exam - General 1994 Eyes pupils and irises Overall: pupils equal, round, reactive to light and accomodation 04/28/2012 None Full Exam - General 1994 Ears/Nose/Throat oral cavity/pharynx/larynx Overall: oropharyngeal mucosa clear 04/28/2012 None Full Exam - General 1994 Ears/Nose/Throat oral cavity/pharynx/larynx Overall: no masses 04/28/2012 None Full Exam - General 1995 Ears/Nose/Throat oral cavity/pharynx/larynx Overall: oral mucosa clear 04/28/2012 None Full Exam - General 1994 Psychiatric orientation/consciousness Overall: oriented to person, place and time 04/28/2012 None Full Exam - General 1994 Psychiatric mood and affect Mood: happy 04/28/2012 None Full Exam - General 1994 Psychiatric mood and affect Overall: normal mood and affect 04/28/2012 None Full Exam - General 1994 Neurologic mental status Orientation: What is the year/season/date/day/month (5): 5 04/28/2012 None Full Exam - General 1994 Respiratory respiratory effort/rhythm Overall: no retractions 04/28/2012 None Full Exam - General 1994 Respiratory auscultation Overall: breath sounds clear bilaterally 04/28/2012 None Full Exam - General 1994 Musculoskeletal gait and station Gait: unable to turn quickly 04/28/2012 None Full Exam - General 1994 Musculoskeletal gait and station Station: kyphosis 04/28/2012 None Full Exam - General 1994 Musculoskeletal spine, ribs and pelvis Posture: kyphosis 04/28/2012 None Full Exam - General 1994 Musculoskeletal spine, ribs and pelvis Posture: lordosis 04/28/2012 None Full Exam - General 1994 Abdomen abdominal exam Overall: no tenderness 04/28/2012 None Full Exam - General 1994 Abdomen abdominal exam Overall: normal bowel sounds 04/28/2012 None Full Exam - General 1994 Neurologic mental status Orientation: Where are we - state/country/town/hospital/floor (5): 5 04/28/2012 None Full Exam - General 1994 Neurologic mental status Level of alertness: alert 04/28/2012 None Full Exam - General 1994 Neurologic mental status Registration: Name 3 objects. 1 point for each object recalled (3): 3 04/28/2012 None Full Exam - General 1994 Neurologic mental status Attention/calculation: _ Serial 7's or "world" spelled backward (5): 5 04/28/2012 None Full Exam - General 1994 Neurologic mental status Recall: Recall of objects mentioned above after 5 min. (3): 1 04/28/2012 None Full Exam - General 1994 Neurologic mental status Language: Name pencil and watch (2): 2 04/28/2012 None Full Exam - General 1994 Neck thyroid Overall: nontender 2011 None Full Exam - General 1994 Neck thyroid Overall: normal size 05/2012 None Full Exam - General 1994 Neck thyroid Overall: no mass lesions 04/28/2012 None Full Exam - General 1994 Neck thyroid Overall: normal consistency 04/28/2012 None Full Exam - General 1994 Cardiovascular auscultation of heart Overall: regular rate 04/28/2012 None Full Exam - General 1994 Cardiovascular auscultation of heart Overall: normal heart sounds 04/28/2012 None Full Exam - General 1994 Cardiovascular auscultation of heart Systolic murmur: midsystolic 04/28/2012 None Full Exam - General 1994 Cardiovascular extremities Overall: no clubbing 04/28/2012 None Full Exam - General 1994 Respiratory respiratory effort/rhythm Overall: normal rate 04/28/2012 None Procedures Procedure Codes Date DESTRUCT PREMALG LESION CPT-4: 70456 11/07/2016 ADMIN INFLUENZA VIRUS VAC CPT-4: G0008 03/25/2015 FLU VACC 4 CHANTELLE 3 YRS PLUS IM Formatting Model/CDA Sections, Assigned to SNOMED CT: [id number] CPT-4: [id number] 03/25/2015 ADMIN INFLUENZA VIRUS VAC Assigned to CPT-4: [id number] 04/23/2014 FLU VAC NO PRSV 4 CHANTELLE 3 YRS+ CPT-4: 40343 04/23/2014 TRIAMCINOLONE ACET INJ NOS CPT-4: J3301 05/20/2013 THER/PROPH/DIAG INJ SC/IM CPT-4: 38851 05/20/2013 PRESCRIP TRANSMIT VIA ERX SY CPT-4: G8553 05/20/2013 URINALYSIS NONAUTO W/O SCOPE CPT-4: 99323 04/30/2013 THER/PROPH/DIAG INJ SC/IM CPT-4: 89318 04/16/2013 ROCEPHIN, PER 250 MG CPT-4: J0696 04/16/2013 PRESCRIP TRANSMIT VIA ERX SY CPT-4: G8553 04/16/2013 ADMIN INFLUENZA VIRUS VAC CPT-4: G0008 03/10/2013 FLULAVAL VACC, 3 YRS & >, IM CPT-4: Q2036 03/10/2013 PRESCRIP TRANSMIT VIA ERX SY CPT-4: G8553 12/02/2012 TRIAMCINOLONE ACET INJ NOS CPT-4: J3301 10/08/2012 INJ TRIGGER POINT 1/2 MUSCL CPT-4: 85160 10/08/2012 ROUTINE VENIPUNCTURE CPT-4: 56726 08/27/2012 DRAIN/INJECT JOINT/BURSA CPT-4: 73984 07/09/2012 TRIAMCINOLONE ACET INJ NOS CPT-4: J3301 07/09/2012 ROUTINE VENIPUNCTURE CPT-4: 59224 05/13/2012 ROUTINE VENIPUNCTURE CPT-4: 26967 04/30/2012 PRESCRIP TRANSMIT VIA ERX SY CPT-4: G8553 04/28/2012 Vital Signs Date Vital 08/19/2018 Blood Pressure 1: 104/62 Code : 8480-6 BMI: 23.2 Code : 34434-4 Heart Rate 1 : 64 bpm Height: 5'1" Weight: 123 lbs 02/14/2018 Blood Pressure 1: 130/78 Code : 8480-6 BMI: 24.6 Code : 58746-4 Heart Rate 1 : 64 bpm Height: 5'1" SpO2: 96% Weight: 130 lbs 12/09/2017 BMI: 24.0 Code: 27880-4 Height: 5'1" Weight: 127 lbs 11/14/2017 Blood Pressure 1: 140/74 Code : 8480-6 Heart Rate 1: 78 bpm SpO2: 94% Weight: 127 lbs 08/13/2017 Blood Pressure 1: 120/76 Code : 8480-6 BMI: 24.9 Code : 51185-7 Heart Rate 1 : 76 bpm Height: 5'1" SpO2: 96% Weight: 132 lbs 05/21/2017 Blood Pressure 1: 132/80 Code : 8480-6 BMI: 26.1 Code : 13075-0 Heart Rate 1 : 61 bpm Height: 5'1" SpO2: 92% Weight: 138 lbs 05/07/2017 Blood Pressure 1: 128/70 Code : 8480-6 BMI: 25.9 Code : 56207-0 Heart Rate 1 : 72 bpm Height: 5'1" SpO2: 96% Weight: 137 lbs 01/08/2017 Blood Pressure 1: 136/82 Code : 8480-6 BMI: 25.5 Code : 25549-2 Heart Rate 1 : 75 bpm Height: 5'1" SpO2: 96% Weight: 135 lbs 01/07/2017 Blood Pressure 1: 142/86 Code : 8480-6 BMI: 25.5 Code : 01397-9 Heart Rate 1 : 75 bpm Height: 5'1" SpO2: 95% Weight: 135 lbs 11/07/2016 Blood Pressure 1: 120/80 Code : 8480-6 BMI: 25.5 Code : 33293-4 Heart Rate 1 : 83 bpm Height: 5'1" SpO2: 97% Weight: 135 lbs 07/26/2016 Blood Pressure 1: 140/80 Code : 8480-6 BMI: 27.0 Code : 25016-7 Heart Rate 1 : 68 bpm Height: 5'1" SpO2: 94% Weight: 143 lbs 04/25/2016 Blood Pressure 1: 128/82 Code : 8480-6 BMI: 28.2 Code : 58047-3 Heart Rate 1 : 71 bpm Height: 5'1" SpO2: 98% Weight: 149 lbs 10/04/2015 Blood Pressure 1: 140/80 Code : 8480-6 BMI: 27.8 Code : 48526-4 Heart Rate 1 : 77 bpm Height: 5'1" SpO2: 96% Weight: 147 lbs 06/29/2015 Blood Pressure 1: 134/70 Code : 8480-6 BMI: 26.8 Code : 71173-5 Heart Rate 1 : 68 bpm Height: 5'1" SpO2: 95% Weight: 142 lbs 02/17/2015 Blood Pressure 1: 128/80 Code : 8480-6 Heart Rate 1: 85 bpm Height: 5'1" SpO2: 96% Weight: 02/07/2015 Blood Pressure 1: 130/68 Code : 8480-6 BMI: 28.7 Code : 13951-3 Heart Rate 1 : 80 bpm Height: 5'1" SpO2: 95% Weight: 152 lbs 03/30/2014 Blood Pressure 1: 142/80 Code : 8480-6 BMI: 27.8 Code : 11113-6 Heart Rate 1 : 83 bpm Height: 5'1" SpO2: 95% Weight: 147 lbs 12/24/2013 Blood Pressure 1: 120/80 Code : 8480-6 BMI: 27.8 Code : 90440-9 Heart Rate 1 : 76 bpm Height: 5'1" Weight: 147 lbs 12/01/2013 Blood Pressure 1: 138/82 Code : 8480-6 BMI: 28.0 Code : 34822-4 Heart Rate 1 : 76 bpm Height: 5'1" SpO2: 91% Weight: 148 lbs 11/27/2013 Blood Pressure 1: 140/90 Code : 8480-6 BMI: 28.0 Code : 95976-3 Heart Rate 1 : 76 bpm Height: 5'1" SpO2: 95% Weight: 148 lbs 08/27/2013 Blood Pressure 1: 132/76 Code : 8480-6 BMI: 26.5 Code : 28721-9 Heart Rate 1 : 72 bpm Height: 5'1" Weight: 140 lbs 05/20/2013 Blood Pressure 1: 122/80 Code : 8480-6 BMI: 26.8 Code : 00636-1 Heart Rate 1 : 80 bpm Height: 5'1" SpO2: 98% Temperature: 37.3 (C) / 99.2 (F) Weight: 142 lbs 04/30/2013 Blood Pressure 1: 140/80 Code : 8480-6 BMI: 27.0 Code : 56931-7 Heart Rate 1 : 73 bpm Height: 5'1" SpO2: 93% Temperature: 37.3 (C) / 99.1 (F) Weight: 143 lbs 04/16/2013 Blood Pressure 1: 100/64 Code : 8480-6 BMI: 27.2 Code : 47290-1 Heart Rate 1 : 80 bpm Height: 5'1" SpO2: 97% Temperature: 37.4 (C) / 99.3 (F) Weight: 144 lbs 03/10/2013 Blood Pressure 1: 132/82 Code : 8480-6 BMI: 27.2 Code : 06561-1 Heart Rate 1 : 80 bpm Height: 5'1" Weight: 144 lbs 12/08/2012 Blood Pressure 1: 144/80 Code : 8480-6 Heart Rate 1: 76 bpm Weight: 12/02/2012 Blood Pressure 1: 118/66 Code : 8480-6 BMI: 27.8 Code : 22128-9 Heart Rate 1 : 88 bpm Height: 5'1" Weight: 147 lbs 10/08/2012 Blood Pressure 1: 116/64 Code : 8480-6 BMI: 27.8 Code : 21283-2 Heart Rate 1 : 80 bpm Height: 5'1" Weight: 147 lbs 08/27/2012 Blood Pressure 1: 122/78 Code : 8480-6 BMI: 28.3 Code : 61428-0 Heart Rate 1 : 84 bpm Height: 5'1" Weight: 150 lbs 07/09/2012 Blood Pressure 1: 136/88 Code : 8480-6 Heart Rate 1: 84 bpm Weight: 150 lbs 05/19/2012 Blood Pressure 1: 124/74 Code : 8480-6 Heart Rate 1: 72 bpm Respiratory Rate : 16 bpm Weight: 152 lbs 04/28/2012 Blood Pressure 1: 130/80 Code : 8480-6 BMI: 29.1 Code : 97642-7 Heart Rate 1 : 56 bpm Height: 5'1" Respiratory Rate: 16 bpm Weight: 154 lbs Functional Status No Functional Status data History of Present Illness Symptom Name Status Result Effective Date Notes Quality chronic 08/19 None Quality primary hypertension 08/19/2018 None Onset and Resolution ongoing 08/19/2018 None Onset of Symptom during adulthood 08/19/2018 None Alleviating Factors medication 08/19/2018 None Onset and Resolution Denies gradual in onset 08/19/2018 None Onset and Resolution Denies ongoing 08/19/2018 None Onset of Symptom Denies during adulthood 08/19/2018 None Alleviating Factors Denies medication 08/19/2018 None Blood Pressure Values not checking blood pressure at home 08/19/2018 None Severity not consistently severe symptoms, the symptoms fluctuate from no symptoms to anxiety and headaches 08/19/2018 None Frequency of Episodes unchanged 08/19/2018 None Triggers no known associated factors 08/19/2018 None lower leg pain Location on the left 02/14/2018 None lower leg pain Quality aching pain 02/14/2018 None lower leg pain Quality throbbing 02/14/2018 None lower leg pain Quality constant 02/14/2018 None cough Location in the throat 02/14/2018 None cough Onset and Resolution sudden in onset 02/14/2018 None lower leg pain Onset and Resolution ongoing 02/14/2018 None lower leg pain Onset of Symptom _ years ago 02/14/2018 None lower leg pain Frequency of Episodes unchanged 02/14/2018 None lower leg pain Limitation on Activities allows weight bearing activity 02/14/2018 None lower leg pain Severity moderate 02/14/2018 None lower leg pain Severity severe 02/14/2018 None lower leg pain Significant Medical Conditions degenerative joint disease 02/14/2018 None lower leg pain Sports Participation not significant 02/14/2018 None lower leg pain Alleviating Factors rest 02/14/2018 None lower leg pain Alleviating Factors NSAID' s 02/14/2018 None lower leg pain Exacerbating Factors walking 02/14/2018 None lower leg pain Pertinent Findings limping 02/14/2018 None lower leg pain Pertinent Findings pain with movement 02/14/2018 None lower leg pain Pertinent Findings stiffness 02/14/2018 None lower leg pain Location on the left 11/14/2017 None lower leg pain Quality aching pain 11/14/2017 None lower leg pain Quality throbbing 11/14/2017 None lower leg pain Quality constant 11/14/2017 None lower leg pain Location on the left 08/13/2017 None lower leg pain Quality aching pain 08/13/2017 None lower leg pain Quality throbbing 08/13/2017 None lower leg pain Quality constant 08/13/2017 None lower leg pain Location on the left 05/21/2017 None lower leg pain Quality aching pain 05/21/2017 None lower leg pain Quality throbbing 05/21/2017 None lower leg pain Quality constant 05/21/2017 None arthralgia(s) Location in both hips 05/07/2017 None arthralgia(s) Quality chronic 05/07/2017 None arthralgia(s) Onset and Resolution ongoing 05/07/2017 None arthralgia(s) Pertinent Findings Denies fever 05/07/2017 None gastroesophageal reflux Quality intermittent 05/07/2017 None gastroesophageal reflux Onset and Resolution ongoing 05/07/2017 None gastroesophageal reflux Severity mild 05/07/2017 None gastroesophageal reflux Pertinent Findings Denies cough 05/07/2017 None skin lesion Onset and Resolution ongoing 01/08/2017 None skin lesion Quality mobile 01/08/2017 None skin lesion Quality non-tender 01/08/2017 None skin lesion Severity moderate 01/08/2017 None skin lesion Onset and Resolution gradual in onset 01/07/2017 None skin lesion Onset of Symptom 5 days ago 01/07/2017 None skin lesion Triggers no known associated factors 01/07/2017 None skin lesion Quality enlarging 01/07/2017 None skin lesion Quality firm 01/07/2017 None hypertension Onset and Resolution ongoing 11/07/2016 None hypertension Onset of Symptom during adulthood 11/07/2016 None hypertension Blood Pressure Values patient checking blood pressure at home - did not bring in readings 11/07/2016 -Checks rarely hypertension Alleviating Factors medication 11/07/2016 None hypertension Pertinent Findings dizziness 11/07/2016 occasionally hypertension Pertinent Findings dyspnea 11/07/2016 with exertion-occasionally hypertension Pertinent Findings edema 11/07/2016 None hyperlipidemia Onset and Resolution gradual in onset 11/07/2016 None hyperlipidemia Onset of Symptom during adulthood 11/07/2016 None hyperlipidemia Alleviating Factors medication 11/07/2016 None hyperlipidemia Exacerbating Factors diet 11/07/2016 None arthritis Frequency of Episodes daily 11/07/2016 None arthritis Onset and Resolution gradual in onset 11/07/2016 None arthritis Onset and Resolution ongoing 11/07/2016 None arthritis Quality chronic 11/07/2016 None hypertension Quality primary hypertension 11/07/2016 None hypertension Onset and Resolution ongoing 07/26/2016 None hypertension Onset of Symptom during adulthood 07/26/2016 None hypertension Blood Pressure Values patient checking blood pressure at home - did not bring in readings 07/26/2016 -Checks occasionally hypertension Alleviating Factors medication 07/26/2016 None hypertension Pertinent Findings dizziness 07/26/2016 occasionally hypertension Pertinent Findings dyspnea 07/26/2016 with exertion hypertension Pertinent Findings edema 07/26/2016 None hyperlipidemia Onset and Resolution gradual in onset 07/26/2016 None hyperlipidemia Onset and Resolution ongoing 07/26/2016 None hyperlipidemia Onset of Symptom during adulthood 07/26/2016 None hyperlipidemia Alleviating Factors medication 07/26/2016 None hyperlipidemia Exacerbating Factors diet 07/26/2016 None arthritis Frequency of Episodes daily 07/26/2016 None arthritis Quality chronic 07/26/2016 None arthritis Onset and Resolution ongoing 07/26/2016 None arthritis Onset and Resolution gradual in onset 07/26/2016 None hypertension Onset and Resolution ongoing 04/25/2016 None hypertension Onset of Symptom during adulthood 04/25/2016 None hypertension Blood Pressure Values patient checking blood pressure at home - did not bring in readings 04/25/2016 None hypertension Alleviating Factors medication 04/25/2016 None hypertension Pertinent Findings Denies dizziness 04/25/2016 None hypertension Pertinent Findings Denies dyspnea 04/25/2016 None hypertension Pertinent Findings edema 04/25/2016 None hyperlipidemia Onset and Resolution gradual in onset 04/25/2016 None hyperlipidemia Onset and Resolution ongoing 04/25/2016 None hyperlipidemia Onset of Symptom during adulthood 04/25/2016 None hyperlipidemia Alleviating Factors medication 04/25/2016 None hyperlipidemia Exacerbating Factors diet 04/25/2016 None arthritis Frequency of Episodes daily 04/25/2016 None arthritis Quality chronic 04/25/2016 None hypertension Quality stable 10/04/2015 None hypertension Onset and Resolution ongoing 10/04/2015 None hypertension Blood Pressure Values not checking blood pressure at home 10/04/2015 None hypertension Alleviating Factors medication 10/04/2015 None hypertension Pertinent Findings dizziness 10/04/2015 -mainly first thing in the morning hypertension Pertinent Findings Denies dyspnea 10/04/2015 None hypertension Pertinent Findings edema 10/04/2015 -in the ankles memory loss Onset and Resolution gradual in onset 10/04/2015 None memory loss Onset of Symptom during adulthood 10/04/2015 None memory loss Limitation on Activities moderately limits activities 10/04/2015 None memory loss Frequency of Episodes hourly 10/04/2015 None neck pain Location on the left 10/04/2015 None neck pain Quality intermittent 10/04/2015 None neck pain Onset and Resolution ongoing 10/04/2015 None neck pain Onset of Symptom during adulthood 10/04/2015 None hyperlipidemia Onset and Resolution ongoing 10/04/2015 None hyperlipidemia Onset of Symptom during adulthood 10/04/2015 None hyperlipidemia Alleviating Factors medication 10/04/2015 None hyperlipidemia Exacerbating Factors diet 10/04/2015 None hypertension Pertinent Findings dizziness 06/29/2015 None hypertension Pertinent Findings edema 06/29/2015 None hypertension Pertinent Findings Denies dyspnea 06/29/2015 None hypertension Alleviating Factors medication 06/29/2015 None memory loss Onset and Resolution gradual in onset 06/29/2015 None memory loss Onset of Symptom during adulthood 06/29/2015 None memory loss Limitation on Activities moderately limits activities 06/29/2015 None memory loss Frequency of Episodes hourly 06/29/2015 None hypertension Quality stable 06/29/2015 None hypertension Onset and Resolution ongoing 06/29/2015 None hypertension Blood Pressure Values not checking blood pressure at home 06/29/2015 None hip pain Location on the left 02/17/2015 None hip pain Quality dull ache 02/17/2015 None hip pain Quality sharp pain 02/17/2015 None hip pain Quality chronic 02/17/2015 None hip pain Quality constant 02/17/2015 None hip pain Onset and Resolution ongoing 02/17/2015 None hip pain Frequency of Episodes daily 02/17/2015 None hip pain Limitation on Activities restricts ambulation 02/17/2015 None hip pain Limitation on Activities moderately limits activities 02/17/2015 None hip pain Severity moderate 02/17/2015 None hip pain Alleviating Factors non weight bearing 02/17/2015 None hip pain Radiating the knee 02/17/2015 None hip pain Pertinent Findings pain at rest 02/17/2015 None hip pain Pertinent Findings pain with movement 02/17/2015 None hip pain Pertinent Findings stiffness 02/17/2015 None hip pain Pertinent Findings weakness 02/17/2015 None abnormal bleeding and bruising Location on the right arm 02/17/2015 None abnormal bleeding and bruising Onset and Resolution sudden in onset 02/17/2015 None abnormal bleeding and bruising Onset of Symptom 5 days ago 02/17/2015 None hip pain Location on the left 02/07/2015 None hip pain Quality constant 02/07/2015 None hip pain Quality sharp pain 02/07/2015 None hip pain Quality dull ache 02/07/2015 None hip pain Quality chronic 02/07/2015 None hip pain Onset and Resolution ongoing 02/07/2015 None hip pain Frequency of Episodes daily 02/07/2015 None hip pain Limitation on Activities restricts ambulation 02/07/2015 None hip pain Limitation on Activities moderately limits activities 02/07/2015 None hip pain Severity moderate 02/07/2015 None hip pain Mechanism of injury unknown 02/07/2015 None hip pain Alleviating Factors non weight bearing 02/07/2015 None hip pain Radiating the knee 02/07/2015 None hip pain Assistive devices cane 02/07/2015 None hip pain Pertinent Findings pain at rest 02/07/2015 None hip pain Pertinent Findings pain with movement 02/07/2015 None hip pain Pertinent Findings stiffness 02/07/2015 None hip pain Pertinent Findings weakness 02/07/2015 None hip pain Location on the left 03/30/2014 None hip pain Quality chronic 03/30/2014 None hip pain Limitation on Activities allows weight bearing activity 03/30/2014 but painful hip pain Severity moderate 03/30/2014 None hip pain Quality dull ache 03/30/2014 None hip pain Radiating radiates 03/30/2014 from hip to anterior thigh hypertension Blood Pressure Values not checking blood pressure at home 12/24/2013 None hypertension Pertinent Findings Denies dizziness 12/24/2013 None hypertension Pertinent Findings Denies dyspnea 12/24/2013 None hypertension Pertinent Findings edema 12/24/2013 None hip pain Location on the left 12/24/2013 None hip pain Quality constant 12/24/2013 None hip pain Quality sharp pain 12/24/2013 None hip pain Pertinent Findings Denies pain with movement 12/24/2013 None hip pain Pertinent Findings Denies pain at rest 12/24/2013 None hypertension Onset of Symptom during adulthood 12/24/2013 None hypertension Severity not consistently severe symptoms, the symptoms fluctuate from no symptoms to anxiety and headaches 12/24/2013 None hypertension Triggers no known associated factors 12/24/2013 None hypertension Alleviating Factors medication 12/24/2013 None hip pain Onset of Symptom _ months ago 12/24/2013 None hip pain Frequency of Episodes unchanged 12/24/2013 None hip pain Limitation on Activities allows ambulation 12/24/2013 None hip pain Severity mild 12/24/2013 None hip pain Mechanism of injury unknown 12/24/2013 None hip pain Alleviating Factors NSAID's 12/24/2013 uses tylenol- reports she takes 1 tab at bedtime and sometimes 1 pill in the morning hypertension Quality chronic 12/24/2013 None hip pain Pertinent Findings instability 12/01/2013 None hip pain Pertinent Findings limping 12/01/2013 None hip pain Pertinent Findings pain at rest 12/01/2013 None hip pain Pertinent Findings pain with movement 12/01/2013 None hip pain Pertinent Findings swelling 12/01/2013 None hip pain Pertinent Findings weakness 12/01/2013 None hip pain Pertinent Findings decreased range of motion 12/01/2013 None hip pain Radiating radiates down the leg to the foot 12/01/2013 None hip pain Location on the left 12/01/2013 None hip pain Quality chronic 12/01/2013 None hip pain Quality sharp pain 12/01/2013 None hip pain Onset and Resolution ongoing 12/01/2013 None hip pain Onset of Symptom _ years ago 12/01/2013 None hip pain Frequency of Episodes unchanged 12/01/2013 None hip pain Limitation on Activities allows ambulation 12/01/2013 None hip pain Severity mild 12/01/2013 None hip pain Severity moderate 12/01/2013 None hip pain Mechanism of injury unknown 12/01/2013 None edema Onset of Symptom 2 weeks ago 11/27/2013 None edema Location on both ankles 11/27/2013 None edema Quality worsening 11/27/2013 left hip edema Pertinent Findings Denies dyspnea 11/27/2013 None edema Pertinent Findings dyspnea on exertion 11/27/2013 None edema Pertinent Findings Denies lightheadedness 11/27/2013 None edema Limitation on Activities does not limit activities 11/27/2013 None edema Frequency of Episodes increasing 11/27/2013 None edema Triggers prolonged sitting 11/27/2013 None edema Exacerbating Factors activity 11/27/2013 None hypertension Quality chronic 08/27/2013 None hypertension Onset and Resolution ongoing 08/27/2013 None hypertension Blood Pressure Values not checking blood pressure at home 08/27/2013 None leg pain/sciatica Radiating the right groin 08/27/2013 and thigh leg pain/sciatica Quality dull pain 08/27/2013 None leg pain/sciatica Quality throbbing 08/27/2013 None leg pain/sciatica Quality chronic 08/27/2013 None cough Quality acute None cough Quality productive 05/20/2013 None cough Quality worsening 05/20/2013 None cough Location in the lung 05/20/2013 None cough Pertinent Findings hoarseness 05/20/2013 None cough Onset of Symptom 3-4 days ago 05/20/2013 None cough Pertinent Findings chills 05/20/2013 None cough Triggers ill contacts 05/20/2013 None cough Triggers post nasal drip 05/20/2013 None shortness of breath Quality acute 04/30/2013 None shortness of breath Quality breathlessness 04/30/2013 None shortness of breath Onset and Resolution gradual in onset 04/30/2013 hoarseness. shortness of breath Pertinent Findings Denies ill contacts 04/30/2013 None shortness of breath Onset of Symptom 2 weeks ago 04/30/2013 None shortness of breath Pertinent Findings cough 04/30/2013 None shortness of breath Pertinent Findings sputum production 04/30/2013 None cough Location in the lung 04/16/2013 None cough Quality hacking 04/16/2013 None cough Quality interrupts sleep 04/16/2013 None cough Quality productive 04/16/2013 but clear cough Onset of Symptom 5 days ago 04/16/2013 None cough Pertinent Findings Denies chills 04/16/2013 None cough Pertinent Findings fever 04/16/2013 None cough Pertinent Findings Denies frothy pink sputum 04/16/2013 None cough Pertinent Findings hoarseness 04/16/2013 None cough Pertinent Findings ill contacts 04/16/2013 cough Pertinent Findings nasal congestion 04/16/2013 None cough Triggers post nasal drip 04/16/2013 None cough Triggers ill contacts 04/16/2013 None hypertension Quality chronic 03/10/2013 None hypertension Onset and Resolution ongoing 03/10/2013 None hypertension Onset of Symptom during adulthood 03/10/2013 None hypertension Alleviating Factors medication 03/10/2013 None hypertension Exacerbating Factors stress 03/10/2013 None edema Quality acute None edema Location on the left ankle 12/08/2012 None foot pain Location at the MP joint of the second toe 12/08/2012 on the right foot foot pain Quality sharp pain 12/08/2012 None foot pain Quality acute 12/08/2012 --Improved foot pain Quality worsening 12/08/2012 --Improved hypertension Quality chronic 12/02/2012 None hypertension Onset and Resolution ongoing 12/02/2012 None hypertension Onset of Symptom during adulthood 12/02/2012 None hypertension Blood Pressure Values not checking blood pressure at home 12/02/2012 None hypertension Severity mild 12/02/2012 None hypertension Triggers stress 12/02/2012 None hypertension Alleviating Factors medication 12/02/2012 None hypertension Exacerbating Factors stress 12/02/2012 None hypertension Pertinent Findings Denies decreased energy 12/02/2012 None hypertension Pertinent Findings Denies dizziness 12/02/2012 None hypertension Pertinent Findings Denies dyspnea 12/02/2012 None foot pain Location at the MP joint of the second toe 12/02/2012 on the right foot foot pain Quality acute 12/02/2012 None foot pain Quality worsening 12/02/2012 None foot pain Quality sharp pain 12/02/2012 None leg pain/sciatica Radiating the left groin 10/08/2012 None leg pain/sciatica Quality worsening 10/08/2012 None hypertension Quality chronic 10/08/2012 None hypertension Onset and Resolution ongoing 10/08/2012 None hypertension Onset of Symptom during adulthood 10/08/2012 None hypertension Blood Pressure Values not checking blood pressure at home 10/08/2012 None hypertension Severity mild 10/08/2012 None hypertension Triggers stress 10/08/2012 None hypertension Alleviating Factors medication 10/08/2012 None hypertension Exacerbating Factors stress 10/08/2012 None hypertension Pertinent Findings Denies decreased energy 10/08/2012 None hypertension Pertinent Findings Denies dizziness 10/08/2012 None hypertension Pertinent Findings Denies dyspnea 10/08/2012 None leg pain/sciatica Location left leg sciatica 10/08/2012 None leg pain/sciatica Quality dull pain 10/08/2012 None leg pain/sciatica Limitation on Activities allows weight bearing activity 10/08/2012 None leg pain/sciatica Severity mild 10/08/2012 None leg pain/sciatica Exacerbating Factors standing or walking 10/08/2012 None leg pain/sciatica Pertinent Findings female 10/08/2012 None leg pain/sciatica Pertinent Findings Denies bowel disturbance 10/08/2012 None leg pain/sciatica Pertinent Findings Denies bladder disturbance 10/08/2012 None leg pain/sciatica Pertinent Findings Denies chills 10/08/2012 None leg pain/sciatica Pertinent Findings pain with movement 10/08/2012 None leg pain/sciatica Pertinent Findings poor fitness level 10/08/2012 None abnormal bleeding and bruising Location on the right arm 08/27/2012 None abnormal bleeding and bruising Quality acute 08/27/2012 bruise to right wrist- states she didn't fall and didn't bump her arm on anything. abnormal bleeding and bruising Onset and Resolution ongoing 08/27/2012 None abnormal bleeding and bruising Onset of Symptom 1 days ago 08/27/2012 None abnormal bleeding and bruising Intervention Required no medical therapy 08/27/2012 None abnormal bleeding and bruising Severity mild 08/27/2012 None abnormal bleeding and bruising Frequency of Episodes decreasing 08/27/2012 None abnormal bleeding and bruising Significant Medications warfarin, therapeutic 08/27/2012 None abnormal bleeding and bruising Triggers no known associated factors 08/27/2012 None abnormal bleeding and bruising Pertinent Findings Denies blood in stool 08/27/2012 None abnormal bleeding and bruising Pertinent Findings Denies lightheadedness 08/27/2012 None abnormal bleeding and bruising Pertinent Findings Denies dyspnea 08/27/2012 None abnormal bleeding and bruising Pertinent Findings Denies presyncope 08/27/2012 None abnormal bleeding and bruising Pertinent Findings Denies syncope 08/27/2012 None abnormal bleeding and bruising Pertinent Findings Denies vomiting 08/27/2012 None abnormal bleeding and bruising Pertinent Findings Denies weakness 08/27/2012 None low back and leg pain Radiating the left anterior thigh 07/09/2012 None low back and leg pain Radiating the left posterior thigh 07/09/2012 None low back and leg pain Quality constant 07/09/2012 None low back and leg pain Onset and Resolution ongoing 07/09/2012 None low back and leg pain Onset of Symptom 1 years ago 07/09/2012 None hypertension Quality chronic 07/09/2012 None hypertension Onset and Resolution ongoing 07/09/2012 None hypertension Onset of Symptom during adulthood 07/09/2012 None hypertension Blood Pressure Values not checking blood pressure at home 07/09/2012 None hypertension Blood Pressure Values patient checking blood pressure at home - did not bring in readings 07/09/2012 None hypertension Severity mild 07/09/2012 None hypertension Triggers stress 07/09/2012 None hypertension Alleviating Factors medication 07/09/2012 None hypertension Exacerbating Factors stress 07/09/2012 None hypertension Pertinent Findings Denies decreased energy 07/09/2012 None hypertension Pertinent Findings Denies dizziness 07/09/2012 None hypertension Pertinent Findings Denies dyspnea 07/09/2012 None leg pain/sciatica Location left leg sciatica 07/09/2012 None leg pain/sciatica Radiating the left groin 07/09/2012 None leg pain/sciatica Radiating the left lateral thigh 07/09/2012 None leg pain/sciatica Quality dull pain 07/09/2012 None leg pain/sciatica Limitation on Activities allows weight bearing activity 07/09/2012 None leg pain/sciatica Severity mild 07/09/2012 None leg pain/sciatica Exacerbating Factors standing or walking 07/09/2012 None leg pain/sciatica Pertinent Findings female 07/09/2012 None leg pain/sciatica Pertinent Findings Denies bowel disturbance 07/09/2012 None leg pain/sciatica Pertinent Findings Denies bladder disturbance 07/09/2012 None leg pain/sciatica Pertinent Findings Denies chills 07/09/2012 None leg pain/sciatica Pertinent Findings pain with movement 07/09/2012 None leg pain/sciatica Pertinent Findings poor fitness level 07/09/2012 None hypertension Quality chronic 05/19/2012 None hypertension Blood Pressure Values patient checking blood pressure at home - did not bring in readings 05/19/2012 None pain Location-Major in the groin area 05/19/2012 None pain Onset and Resolution ongoing 05/19/2012 None hypertension Onset and Resolution ongoing 05/19/2012 None hypertension Onset of Symptom during adulthood 05/19/2012 None leg pain/sciatica Pertinent Findings Denies bladder disturbance 05/19/2012 None leg pain/sciatica Pertinent Findings Denies chills 05/19/2012 None leg pain/sciatica Pertinent Findings pain with movement 05/19/2012 None leg pain/sciatica Pertinent Findings poor fitness level 05/19/2012 None hypertension Blood Pressure Values not checking blood pressure at home 05/19/2012 None hypertension Severity mild 05/19/2012 None hypertension Triggers stress 05/19/2012 None hypertension Alleviating Factors medication 05/19/2012 None hypertension Exacerbating Factors stress 05/19/2012 None hypertension Pertinent Findings Denies decreased energy 05/19/2012 None hypertension Pertinent Findings Denies dizziness 05/19/2012 None hypertension Pertinent Findings Denies dyspnea 05/19/2012 None leg pain/sciatica Location left leg sciatica 05/19/2012 None leg pain/sciatica Radiating the left groin 05/19/2012 None leg pain/sciatica Radiating the left lateral thigh 05/19/2012 None leg pain/sciatica Quality dull pain 05/19/2012 None leg pain/sciatica Limitation on Activities allows weight bearing activity 05/19/2012 None leg pain/sciatica Severity mild 05/19/2012 None leg pain/sciatica Exacerbating Factors standing or walking 05/19/2012 None leg pain/sciatica Pertinent Findings female 05/19/2012 None leg pain/sciatica Pertinent Findings Denies bowel disturbance 05/19/2012 None hypertension Quality chronic 04/28/2012 None hypertension Onset and Resolution ongoing 04/28/2012 None hypertension Blood Pressure Values not checking blood pressure at home 04/28/2012 None leg pain/sciatica Location left leg sciatica 04/28/2012 None leg pain/sciatica Radiating the left groin 04/28/2012 None leg pain/sciatica Radiating the left lateral thigh 04/28/2012 None leg pain/sciatica Quality dull pain 04/28/2012 None leg pain/sciatica Quality sharp pain 04/28/2012 alternating leg pain/sciatica Pertinent Findings female 04/28/2012 None leg pain/sciatica Pertinent Findings Denies bowel disturbance 04/28/2012 None leg pain/sciatica Pertinent Findings Denies bladder disturbance 04/28/2012 None leg pain/sciatica Pertinent Findings Denies chills 04/28/2012 None leg pain/sciatica Pertinent Findings pain with movement 04/28/2012 None leg pain/sciatica Pertinent Findings poor fitness level 04/28/2012 None leg pain/sciatica Exacerbating Factors standing or walking 04/28/2012 None leg pain/sciatica Limitation on Activities allows weight bearing activity 04/28/2012 None leg pain/sciatica Severity mild 04/28/2012 None leg pain/sciatica Extent of Symptoms weak LEs after prolonged walking or standing 04/28/2012 None hypertension Onset of Symptom during adulthood 04/28/2012 None hypertension Severity mild 04/28/2012 None hypertension Triggers stress 04/28/2012 None hypertension Alleviating Factors medication 04/28/2012 None hypertension Exacerbating Factors stress 04/28/2012 None hypertension Pertinent Findings Denies decreased energy 04/28/2012 None hypertension Pertinent Findings Denies dizziness 04/28/2012 None hypertension Pertinent Findings Denies dyspnea 04/28/2012 None Advance Directives No Advance Directive data Encounters Encounter Performer Location Codes Date ([id number]) 58456 EST. 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 PATIENT, LEVEL IV Diagnosis: Essential (primary) hypertension[ICD10: I10] Diagnosis: Urinary tract infection, site not specified[ICD10: N39.0] Diagnosis: Mixed hyperlipidemia[ICD10: E78.2] Sarah Gillis MD, [facility] CPT-4: 74770 01/08/2017 31681 EST. 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 PATIENT, LEVEL IV Diagnosis: Essential (primary) hypertension[ICD10: I10] Diagnosis: Mixed hyperlipidemia[ICD10: E78.2] Diagnosis: Actinic keratosis[ICD10: L57.0] Sarah Gillis MD, [facility] CPT- 4: 37892 11/07/2016 ([id number]) 10273 EST. PATIENT, LEVEL IV Diagnosis: Essential (primary) hypertension[ICD10: I10] Diagnosis: Mixed hyperlipidemia[ICD10: E78.2] Sarah Gillis MD, [facility] CPT-4: 00240 07/26/2016 ([id number]) 61815 EST. PATIENT, LEVEL IV Diagnosis: Essential (primary) hypertension[ICD10: I10] Diagnosis: Other care home (current) drug therapy[ICD10: Z79.899] Diagnosis: Encounter for therapeutic drug level monitoring[ICD10: Z51.81] Sarah Gillis MD, [facility] CPT-4: 79665 04/25/2016 ([id number]) 65437 EST. PATIENT, LEVEL IV Diagnosis: Essential (primary) hypertension[ICD10: I10] Diagnosis: Cervicalgia[ICD10: M54.2] Diagnosis: Cervical disc disorder, unspecified, unspecified cervical region[ ICD10: M50.90] Sarah Gillis MD, [facility] CPT-4: 61078 10/04/2015 ([id number]) 06010 EST. PATIENT, LEVEL IV Diagnosis: Encounter for therapeutic drug level monitoring[ICD10: Z51.81] Diagnosis: Mixed hyperlipidemia[ICD10: E78.2] Diagnosis: Essential (primary) hypertension[ICD10: I10] Diagnosis: Localized edema[ICD10: R60.0] Sarah Gillis MD, [facility] CPT- 4: 19469 06/29/2015 ([id number]) 66890 EST. PATIENT, LEVEL IV Diagnosis: ESSENTIAL HYPERTENSION[ICD9: 401.9] Diagnosis: Osteoarthritis[ICD9: 715.90] Diagnosis: Left hip pain[ICD9: 719.45] Diagnosis: EDEMA[ICD9: 782.3] Diagnosis: ENCNTR LONG-ANTICOAG USE[ICD9: V58.61] Sarah Gillis MD, [facility] CPT-4: 77730 02/17/2015 ([id number]) 58526 EST. PATIENT, LEVEL IV Diagnosis: ESSENTIAL HYPERTENSION[ICD9: 401.9] Diagnosis: Osteoarthritis[ICD9: 715.90] Diagnosis: EDEMA[ICD9: 782.3] Diagnosis: ENCNTR LONG-ANTICOAG USE[ICD9: V58.61] Diagnosis: Left hip pain[ICD9: 719.45] Katy Gillis MD, [facility] CPT-4: 52639 02/07/2015 ([id number]) 46990 EST. PATIENT, LEVEL IV Diagnosis: ESSENTIAL HYPERTENSION[ICD9: 401.9] Diagnosis: Osteoarthritis[ICD9: 715.90] Diagnosis: Hip pain[ICD9: 719.45] Sarah Gillis MD, [facility] CPT-4: 38116 03/30/2014 ([id number]) 01389 EST. PATIENT, LEVEL III Diagnosis: ESSENTIAL HYPERTENSION[ICD9: 401.9] Diagnosis: Anticoagulant long-term use[ICD9: V58.61] Diagnosis: SCIATICA[ICD9: 724.3] Sarah Gillis MD, [facility] CPT-4: 58555 12/24/2013 ([id number]) 29699 EST. PATIENT, LEVEL III Diagnosis: Sacroiliitis[ICD9: 720.2] Diagnosis: SCIATICA[ICD9: 724.3] Sarah Gilils MD, [facility] CPT-4: 64320 12/01/2013 ([id number]) 47372 EST. PATIENT, LEVEL III Diagnosis: EDEMA[ICD9: 782.3] Diagnosis: LONG-TERM USE ANTICOAGUL[ICD9: V58.61] Sarah Gillis MD [facility] CPT-4: 97759 11/27/2013 ([id number]) 82038 EST. PATIENT, LEVEL III Diagnosis: ESSENTIAL HYPERTENSION[SNOMED: 79452130] CARLY Edwards MD CPT-4: 33001 08/27/2013 ([id number]) 08869 EST. PATIENT, LEVEL III Diagnosis: Acute bronchitis[ICD9: 466.0] Diagnosis: COUGH[ICD9: 786.2] CARLY Edwards MD CPT-4: 31812 05/20/2013 ([id number]) 72453 EST. PATIENT, LEVEL III Diagnosis: ACUTE BRONCHITIS[ICD9: 466.0] Diagnosis: Memory loss[ICD9: 780.93] CARLY Edwards MD CPT-4: 76297 04/30/2013 ([id number]) 75025 EST. PATIENT, LEVEL III Diagnosis: ACUTE BRONCHITIS[ICD9: 466.0] Diagnosis: Cough[ICD9: 786.2] Sarah Gillis MD [facility] CPT-4: 79248 04/16/2013 ([id number]) 48258 EST. PATIENT, LEVEL III Diagnosis: ESSENTIAL HYPERTENSION[SNOMED: 63350622] Sarah Gillis MD [facility] CPT-4: 22660 03/10/2013 ([id number]) Miscellaneous no charge Diagnosis: BLISTER FOOT/TOE[ICD9: 917.2] Sarah Gillis MD [facility] CPT- 4: 75471 12/08/2012 ([id number]) 66112 EST. PATIENT, LEVEL III Diagnosis: BLISTER FOOT/TOE[ICD9: 917.2] Diagnosis: CELLULITIS OF FOOT[ICD9: 682.7] Diagnosis: Osteoarthritis[ICD9: 715.90] CARLY Edwards MD CPT- 4: 71423 12/02/2012 ([id number]) 63127 EST. PATIENT, LEVEL III Diagnosis: ESSENTIAL HYPERTENSION[SNOMED: 12507683] Sarah Gillis MD [facility] CPT-4: 30088 10/08/2012 ([id number]) 62524 EST. PATIENT, LEVEL III Diagnosis: Bruising[ICD9: 924.9] Diagnosis: ENCNTR LONG-ANTICOAG USE[ICD9: V58.61] [facility] CPT-4: 04710 08/27/2012 ([id number]) 24786 EST. PATIENT, LEVEL III Diagnosis: ESSENTIAL HYPERTENSION[SNOMED: 19883512] Diagnosis: Sacroiliitis[ICD9: 720.2] [facility] CPT-4: 43497 07/09/2012 ([id number] 97298 EST. 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] [facility] CPT-4: 89881 05/19/2012 ([id number]) OFFICE VISIT, NEW - LEVEL 4 Diagnosis: ESSENTIAL HYPERTENSION[SNOMED: 65935663] Diagnosis: Iliotibial band syndrome[ICD9: 728.89] Diagnosis: Other bursitis, not elsewhere classified, left hip[ICD9: 726.5] [facility] CPT-4: 04861 04/28/2012 Plan of Care Planned Activity Notes Codes Status Date Visit Plan: HTN-too well controlled-need to decrease medication -will check labs and make adjustments as indicated Weight loss-add carnation instant breakfast-increase snacks-follow up in 1 month for weight check Vitamin d def-check level Dementia - Pt with slowly progressive pattern. I have discussed with pt and family the prognosis of this disease state and the need for the family to anticipate further decline with behavior changes. Continue with current plan of treatment. 08/19/2018 Appointment: Katy Shore WPtel: [address] [place], [place] [phone] [place] (15 min) Moderate 08/19/2018 Patient Education: Patient Medication Summary Completed 08/19/2018 Appointment: Katy Shore WPtel: [address] [place], [place] [phone] (15 min) Moderate 05/06/2018 Visit Plan: Hypertension - well controlled - continue with current medications, continue with no added salt diet. Pt has been encouraged to exercise daily. The pt has been advised to call the office if there are any acute concerns about change in blood pressure readings at home. 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 The patient is on medication which appears to be controlling the worst of the symptoms. I have not recommended a change to the regimen at this time, but will continue to closely monitor the medications for effectiveness. Left hip arthritis-gait instability-recommend patient use a walker at all times due to increased risk of falling -recommend PT-patient and are not interested in this. 02/14/2018 Visit Plan: Hypertension - well controlled - continue with current medications, continue with no added salt diet. Pt has been encouraged to exercise daily. The pt has been advised to call the office if there are any acute concerns about change in blood pressure readings at home. 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 The patient is on medication which appears to be controlling the worst of the symptoms. I have not recommended a change to the regimen at this time, but will continue to closely monitor the medications for effectiveness. Left hip arthritis-gait instability-recommend patient use a walker at all times due to increased risk of falling -recommend PT-patient and are not interested in this. 02/14/2018 Appointment: aKty Shore WPtel: [address] [place], [place] [phone] (15 min) Moderate 02/14/2018 Patient Education: Patient Medication Summary Completed 02/14/2018 Care Plan: Valproic Acid (Depakote) S Pending 02/14/2018 Appointment: Nurse Visit 12/09/2017 Patient Education: Patient Medication Summary Completed 12/09/2017 Visit Plan: Arthritis- occasionally uncontrolled symptoms- recommend pt to take antiinflammatory as directed for pain control. Use tylenol for break through pain symptoms. 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 The patient is on medication which appears to be controlling the worst of the symptoms. I have not recommended a change to the regimen at this time, but will continue to closely monitor the medications for effectiveness. 11/14/2017 [facility] [phone] [facility] ([facility] 11/14/2017 Patient Education: Patient Medication Summary Completed 11/14/2017 Visit Plan: Edema - pt has been advised to elevate legs to prevent dependent edema, compression has been recommended to help to naturally decrease peripheral edema. Diuretic use has been discussed and pt has been instructed in appropriate use of such medication as necessary to further attempt to reduce peripheral edema. Arthritis- occasionally uncontrolled symptoms- recommend pt to take antiinflammatory as directed for pain control. Use tylenol for break through pain symptoms. 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 The patient is on medication which appears to be controlling the worst of the symptoms. I have not recommended a change to the regimen at this time, but will continue to closely monitor the medications for effectiveness. 08/13/2017 Appointment: Mary Gonzalez WPtel: [phone] [facility] (30 min) Complex 08/13/2017 Patient Education: Patient Medication Summary Completed 08/13/2017 Visit Plan: Left leg ecchymosis - improving - no changes at this time, continue to monitor, pt is to notify clinic or go to the ER with any acute changes, questions or concerns. Arthritis- occasionally uncontrolled symptoms- recommend pt to take antiinflammatory as directed for pain control. Use tylenol for break through pain symptoms. 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 The patient is on medication which appears to be controlling the worst of the symptoms. I have not recommended a change to the regimen at this time, but will continue to closely monitor the medications for effectiveness. 05/21/2017 Appointment: [facility] [phone] [facility] ([facility] min) Complex 05/21/2017 Patient Education: Patient Medication Summary Completed 05/21/2017 Visit Plan: Esophageal Reflux - the patient has been counseled against excessive intake of caffeine, spicy foods, peppermint, and cinnamon - all of which can exacerbate esophageal reflux. The patient is to take medications as prescribed and call the office if the symptoms are not improving. Arthritis- occasionally uncontrolled symptoms- recommend pt to take antiinflammatory as directed for pain control. Use tylenol for break through pain symptoms. 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 The patient is on medication which appears to be controlling the worst of the symptoms. I have not recommended a change to the regimen at this time, but will continue to closely monitor the medications for effectiveness. 05/07/2017 Appointment: Mary Gonzalez WPtel: [phone] [facility] (30 min) Complex 05/07/2017 Patient Education: Patient Medication Summary Completed 05/07/2017 Appointment: Sarah Gillis WPtel: [phone] [facility] (15 min) Moderate 02/05/2017 Visit Plan: Hypertension - well controlled - continue with current medications, continue with no added salt diet. Pt has been encouraged to exercise daily. The pt has been advised to call the office if there are any acute concerns about change in blood pressure readings at home. UTI - pt with positive urinalysis - culture sent. Antibiotic electronically prescribed to pt' s pharmacy of choice. Pt to call if symptoms do not improve. Hyperlipidemia - pt has been counseled about appropriate diet, exercise, and need for low fat food choices. I have discussed the need for the patient to take medications as prescribed. If the patient has negative side effects from the medication, they are to CALL the office and not abruptly discontinue the medication without discussion with a practitioner in the office. We will check labs in 3-6 months for follow up on the patient's chronic medical problem and to assure normal liver response to medications. Sebaceous cyst - behind left ear -re-eval in 3 weeks 01/08/2017 [facility]ment[phone] [facility] ([facility] min) Moderate 01/08/2017 Patient Education: Patient Medication Summary Completed 01/08/2017 Visit Plan: UTI - pt with positive urinalysis - culture sent if appropriate. Antibiotic electronically prescribed to pt's pharmacy of choice. Pt to call if symptoms do not improve. 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 The patient is on medication which appears to be controlling the worst of the symptoms. I have not recommended a change to the regimen at this time, but will continue to closely monitor the medications for effectiveness. 01/07/2017 Appointment: Mary Gonzalez WPtel: [phone] [facility] (10 min) Simple 01/07/2017 Patient Education: Patient Medication Summary Completed 01/07/2017 Visit Plan: Hypertension - well controlled - continue with current medications, continue with no added salt diet. Pt has been encouraged to exercise daily. The pt has been advised to call the office if there are any acute concerns about change in blood pressure readings at home. cryotherapy over left eyebrow Hyperlipidemia - pt has been counseled about appropriate diet , exercise, and need for low fat food choices. I have discussed the need for the patient to take medications as prescribed. If the patient has negative side effects from the medication, they are to CALL the office and not abruptly discontinue the medication without discussion with a practitioner in the office. We will check labs in 3-6 months for follow up on the patient's chronic medical problem and to assure normal liver response to medications. 11/07/2016 Appointment: Sarah Gillis WPtel: [phone] [facility] (15 min) Moderate 11/07/2016 Patient Education: Patient Medication Summary Completed 11/07/2016 Appointment: Sarah Gillis WPtel: [phone] [facility] (15 min) Moderate 10/24/2016 Visit Plan: Hypertension - well controlled - continue with current medications, continue with no added salt diet. Pt has been encouraged to exercise daily. The pt has been advised to call the office if there are any acute concerns about change in blood pressure readings at home. Hyperlipidemia - pt has been counseled about appropriate diet, exercise, and need for low fat food choices. I have discussed the need for the patient to take medications as prescribed. If the patient has negative side effects from the medication, they are to CALL the office and not abruptly discontinue the medication without discussion with a practitioner in the office. We will check labs in 3-6 months for follow up on the patient's chronic medical problem and to assure normal liver response to medications. 07/26/2016 Appointment: Sarah Gillis WPtel: [phone] [facility] (15 min) Moderate 07/26/2016 Patient Education: Patient Medication Summary Completed 07/26/2016 Visit Plan: Hypertension - well controlled - continue with current medications, continue with no added salt diet. Pt has been encouraged to exercise daily. The pt has been advised to call the office if there are any acute concerns about change in blood pressure readings at home. 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 Arthritis - continue with supportive care. 04/25/2016 Appointment: Sarah Gillis WPtel: [phone] [id number] (15 min) Moderate 04/25/2016 Patient Education: Patient Medication Summary Completed 04/25/2016 Appointment: Sarah Gillis WPtel: [phone] [facility] (30 min) Complex 04/03/2016 Visit Plan: Hypertension - well controlled - continue with current medications, continue with no added salt diet. Pt has been encouraged to exercise daily. The pt has been advised to call the office if there are any acute concerns about change in blood pressure readings at home. Sciatica- exercises discussed with the patient, pt to continue with antiinflammatories. Pt is to call if the symptoms do not improve or if they worsen. 10/04/2015 Patient Education: Patient Medication Summary Completed 10/04/2015 Appointment: Sarah Gillis WPtel: [phone] [facility] (30 min) Complex 09/28/2015 Patient Education: Patient Medication Summary Completed 08/01/2015 Appointment: (30 min) Complex 07/13/2015 Visit Plan: Hypertension - well controlled - continue with current medications, continue with no added salt diet. Pt has been encouraged to exercise daily. The pt has been advised to call the office if there are any acute concerns about change in blood pressure readings at home. Hyperlipidemia - pt has been counseled about appropriate diet, exercise, and need for low fat food choices. I have discussed the need for the patient to take medications as prescribed. If the patient has negative side effects from the medication, they are to CALL the office and not abruptly discontinue the medication without discussion with a practitioner in the office. We will check labs in 3-6 months for follow up on the patient's chronic medical problem and to assure normal liver response to medications. Chronic Anticoagulant use - Pt has been counseled about the anticoagulant, need for serial monitoring, and need for the pt to alert the physician as to any new bruising, or acute bleeding. Therapeutic goal for INR is between 2.0 and 3.5. 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 start on depakote 125mg at hs 06/29/2015 Visit Plan: Hypertension - well controlled - continue with current medications, continue with no added salt diet. Pt has been encouraged to exercise daily. The pt has been advised to call the office if there are any acute concerns about change in blood pressure readings at home. Hyperlipidemia - pt has been counseled about appropriate diet, exercise, and need for low fat food choices. I have discussed the need for the patient to take medications as prescribed. If the patient has negative side effects from the medication, they are to CALL the office and not abruptly discontinue the medication without discussion with a practitioner in the office. We will check labs in 3-6 months for follow up on the patient's chronic medical problem and to assure normal liver response to medications. Chronic Anticoagulant use - Pt has been counseled about the anticoagulant, need for serial monitoring, and need for the pt to alert the physician as to any new bruising, or acute bleeding. Therapeutic goal for INR is between 2.0 and 3.5. 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 06/29/2015 [facility]ment: [phone] [facility] ([facility]) Complex 06/29/2015 Patient Education: Patient Medication Summary Completed 06/29/2015 Patient Education: Hypertension Completed 06/29/2015 Appointment: (30 min) Complex 06/06/2015 Appointment: Nurse Visit 03/25/2015 Patient Education: Patient Medication Summary Completed 03/25/2015 Visit Plan: HIP and SI joint pain - I have recommended an injection - I would like to get the patient in to see Dr. Arrieta for a pain injection for some relief for the patient - however, despite the fact that her agrees with this practitioner that the patient needs better pain relief , she refuses to consider treatment at this time. She stated that when the pain got bad enough she would seek help. Edema - pt has been advised to elevate legs to prevent dependent edema, compression has been recommended to help to naturally decrease peripheral edema. Diuretic use has been discussed and pt has been instructed in appropriate use of such medication as necessary to further attempt to reduce peripheral edema. Hypertension - well controlled - continue with current medications, continue with no added salt diet. Pt has been encouraged to exercise daily. The pt has been advised to call the office if there are any acute concerns about change in blood pressure readings at home. 02/17/2015 Patient Education: Patient Medication Summary Completed 02/17/2015 Patient Education: Hypertension Completed 02/17/2015 Visit Plan: Hypertension - well controlled - continue with current medications, continue with no added salt diet. Pt has been encouraged to exercise daily. The pt has been advised to call the office if there are any acute concerns about change in blood pressure readings at home. Arthritis- occasionally uncontrolled symptoms- recommend pt to take antiinflammatory as directed for pain control. Use tylenol for break through pain symptoms. Left hip pain-xray left hip and pelvis Chronic Anticoagulant use - Pt has been counseled about the anticoagulant, need for serial monitoring, and need for the pt to alert the physician as to any new bruising, or acute bleeding. Therapeutic goal for INR is between 2.0 and 3.5. 02/07/2015 Appointment: (30 min) Complex 02/07/2015 Patient Education: Patient Medication Summary Completed 02/07/2015 Patient Education: Hypertension Completed 02/07/2015 [facility]ment[id number] [facility] 06/28/2014 Appointment: Injection 04/23/2014 Patient Education: Patient Medication Summary Completed 04/23/2014 Visit Plan: Hypertension - well controlled - continue with current medications, continue with no added salt diet. Pt has been encouraged to exercise daily. The pt has been advised to call the office if there are any acute concerns about change in blood pressure readings at home. Arthritis- occasionally uncontrolled symptoms- recommend pt to take antiinflammatory as directed for pain control. Use tylenol for break through pain symptoms. Hip pain - pt to use VOLTAREN GEL THREE TIMES DAILY. 03/30/2014 Appointment: [id number] [facility] 03/30/2014 Patient Education: Patient Medication Summary Completed 03/30/2014 Patient Education: Hypertension Completed 03/30/2014 Visit Plan: Hypertension - well controlled - continue with current medications, continue with no added salt diet. Pt has been encouraged to exercise daily. The pt has been advised to call the office if there are any acute concerns about change in blood pressure readings at home. 12/24/2013 Appointment: [phone] [id number] [facility] 12/24/2013 Patient Education: Patient Medication Summary Completed 12/24/2013 Visit Plan: Sacroilitis-sciatica - back exercises discussed with the patient, pt to continue with antiinflammatories. Pt is to call if the symptoms do not improve or if they worsen. Offered injection today in the office-patient declines but will call if pain worsens 12/01/2013 Appointment: Other 12/01/2013 Patient Education: Patient Medication Summary Completed 12/01/2013 Visit Plan: Edema - pt has been advised to elevate legs to prevent dependent edema, compression has been recommended to help to naturally decrease peripheral edema. Diuretic use has been discussed and pt has been instructed in appropriate use of such medication as necessary to further attempt to reduce peripheral edema. Chronic Anticoagulant use - Pt has been counseled about the anticoagulant, need for serial monitoring, and need for the pt to alert the physician as to any new bruising, or acute bleeding. Theraputic goal for INR is between 2.0 and 3.5. 11/27/2013 Appointment: [phone] [id number] Other 11/27/2013 Patient Education: Patient Medication Summary Completed 11/27/2013 Visit Plan: Hypertension - well controlled - continue with current medications, continue with no added salt diet. Pt has been encouraged to exercise daily. The pt has been advised to call the office if there are any acute concerns about change in blood pressure readings at home. 08/27/2013 Appointment: [phone] [id number] [facility] 08/27/2013 Patient Education: Patient Medication Summary Completed 08/27/2013 Patient Education: Hypertension Completed 08/27/2013 Visit Plan: Bronchitis - acute case of bronchitis identified. Pt has been given antibiotics, breathing treatments as appropriate, and pt has been instructed to call if symptoms are not improved, or if symptoms acutely worsen. cough - pt to continue with otc robitussin - shot of kenalog today for persistent symptoms of inflammation 05/20/2013 Appointment: Sarah Gillis WPtel: [id number] Sick 05/20/2013 Patient Education: Patient Medication Summary Completed 05/20/2013 Visit Plan: Bronchitis - Pt has been diagnosed with bronchitis by physical exam. The pt is aware of the diagnosis and the need for acute treatment of this illness. pt has been on treatment - is improving - her cough should slowly improve with time and her is to call if there is not further improvement in the next 1 week. Memory loss - progressive. I have asked the patient and her to consider other arrangements for their living as Nicole is showing more symptoms of memory loss. 04/30/2013 Patient Education: Patient Medication Summary Completed 04/30/2013 Visit Plan: Bronchitis - acute case of bronchitis identified. Pt has been given antibiotics, breathing treatments as appropriate, and pt has been instructed to call if symptoms are not improved, or if symptoms acutely worsen. 04/16/2013 Patient Education: Patient Medication Summary Completed 04/16/2013 Visit Plan: Hypertension - well controlled - continue with current medications, continue with no added salt diet. Pt has been encouraged to exercise daily. The pt has been advised to call the office if there are any acute concerns about change in blood pressure readings at home. 03/10/2013 Appointment: Saarh Gillis WPtel: [id number] Follow up 03/10/2013 Patient Education: Patient Medication Summary Completed 03/10/2013 Patient Education: Hypertension Completed 03/10/2013 Appointment: Sarah Gillis WPtel: [id number] [place] Follow up 12/17/2012 Visit Plan: Wound care to lesion -neosporin, call if worsening symptoms - finish antibotics 12/08/2012 Appointment: Sarah Gillis WPtel: [address] [place], [place] [id number] Other 12/08/2012 Patient Education: Patient Medication Summary Completed 12/08/2012 Visit Plan: Cellulitis - continue with oral antibiotics as previously directed, return to clinic as previously directed, call for acute change in symptoms, worsening redness, warmth, discharge. on 2nd digit right fot debrided and dressing placed over the wound. Arthritis- occasionally uncontrolled symptoms- Use tylenol for break through pain symptoms. 12/02/2012 Appointment: Sarah Gillis WPtel: [address] [place], [place] [id number] Follow up 12/02/2012 Patient Education: Patient Medication Summary Completed 12/02/2012 Visit Plan: Hypertension - well controlled - continue with current medications, continue with no added salt diet. Pt has been encouraged to exercise daily. The pt has been advised to call the office if there are any acute concerns about change in blood pressure readings at home. Lateral Femoral Cutaneous nerve pain - pt given injection today. 10/08/2012 Appointment: Sarah Gillis WPtel: [address] [place], [place] [id number] Follow up 10/08/2012 Patient Education: Patient Medication Summary Completed 10/08/2012 Patient Education: Hypertension Completed 10/08/2012 Visit Plan: Abnormal bruising-care home coumadin therapy- plan to check PT/INR today in the office and continue to monitor symptoms- instructed patient to call if bleeding/bruising continues or if she becomes weak , dizzy, light headed, etc. Patient and verbalized understanding of plan. 08/27/2012 Appointment: Katy Shore WPtel: [address] [place], [place] [id number] Other 08/27/2012 Patient Education: Patient Medication Summary Completed 08/27/2012 Appointment: Sarah Gillis WPtel: [address] [place], [place] [id number] Follow up 07/14/2012 Visit Plan: Hypertension - well controlled - continue with current medications, continue with no added salt diet. Pt has been encouraged to exercise daily. The pt has been advised to call the office if there are any acute concerns about change in blood pressure readings at home. Greater Trochanteric Bursa Injection - Pt was given post - injection instructions. The pt has been advised to use antiinflammatories post injection today, ice to the injected site, call if redness, warmth, or increased pain occurs at the site of injection. Ssacroilitis- exercises discussed with the patient, pt to continue with antiinflammatories. Pt is to call if the symptoms do not improve or if they worsen. 07/09/2012 Appointment: Sarah Gillis WPtel: [id number] Other 07/09/2012 Patient Education: Patient Medication Summary Completed 07/09/2012 Patient Education: Hypertension Completed 07/09/2012 Visit Plan: Hypertension - well controlled - continue with current medications, continue with no added salt diet. Pt has been encouraged to exercise daily. The pt has been advised to call the office if there are any acute concerns about change in blood pressure readings at home. 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 05/19/2012 Appointment: Sarah Gillis WPtel: [address] [place], [place] [phone] Follow up 05/19/2012 Patient Education: Hypertension Completed 05/19/2012 Patient Education: Patient Medication Summary Completed 05/19/2012 Appointment: Sarah Gillis WPtel: [id number] Lab Draw 05/13/2012 Patient Education: Patient Medication Summary Completed 05/13/2012 Patient Education: Patient Medication Summary Completed 04/30/2012 Patient Education: High Blood Pressure: Essential Hypertension Completed 2011 Visit Plan: Hypertension - uncontrolled - the patient's medications have been modified as documented in the visit note. The patient has been counseled to cut back on salt in diet for a no added salt diet, low fat diet, start an exercise program with low weight bearing exercises and higher aerobic activity for heart health. The patient is to check blood pressure readings as an outpatient and either fax, call, or email the readings to the office next week for practicioner to review. The pt is to call for acute concerns. Ilitibial band syndrome- recommended use of antiinflammatories and pt given handout on Ilitibial band exercises. Arthritis- occasionally uncontrolled symptoms- recommend pt to take antiinflammatory as directed for pain control. Use tylenol for break through pain symptoms. 04/28/2012 Appointment: Sarah Gillis WPtel: [phone] [id number] New Patient 04/28/2012 Patient Education: Patient Medication Summary Completed 04/28/2012 Patient Education: High Blood Pressure: Essential Hypertension Completed 2011 Appointment: Sarah Gillis WPtel: [phone] [id number] [facility]/ New Patient 10/15/2011 Instructions Comment . HIP and SI joint pain - I have recommended an injection - I would like to get the patient in to see Dr. Arrieta for a pain injection for some relief for the patient - however, despite the fact that her agrees with this practitioner that the patient needs better pain relief, she refuses to consider treatment at this time. She stated that when the pain got bad enough she would seek help. Edema - pt has been advised to elevate legs to prevent dependent edema, compression has been recommended to help to naturally decrease peripheral edema. Diuretic use has been discussed and pt has been instructed in appropriate use of such medication as necessary to further attempt to reduce peripheral edema. Hypertension - well controlled - continue with current medications, continue with no added salt diet. Pt has been encouraged to exercise daily. The pt has been advised to call the office if there are any acute concerns about change in blood pressure readings at home. . Hypertension - well controlled - continue with current medications, continue with no added salt diet. Pt has been encouraged to exercise daily. The pt has been advised to call the office if there are any acute concerns about change in blood pressure readings at home. Hyperlipidemia - pt has been counseled about appropriate diet, exercise, and need for low fat food choices. I have discussed the need for the patient to take medications as prescribed. If the patient has negative side effects from the medication, they are to CALL the office and not abruptly discontinue the medication without discussion with a practitioner in the office. We will check labs in 3-6 months for follow up on the patient's chronic medical problem and to assure normal liver response to medications. . Edema - pt has been advised to elevate legs to prevent dependent edema, compression has been recommended to help to naturally decrease peripheral edema. Diuretic use has been discussed and pt has been instructed in appropriate use of such medication as necessary to further attempt to reduce peripheral edema. Chronic Anticoagulant use - Pt has been counseled about the anticoagulant, need for serial monitoring, and need for the pt to alert the physician as to any new bruising, or acute bleeding. Theraputic goal for INR is between 2.0 and 3.5. . Hypertension - well controlled - continue with current medications, continue with no added salt diet. Pt has been encouraged to exercise daily. The pt has been advised to call the office if there are any acute concerns about change in blood pressure readings at home. . Bronchitis - acute case of bronchitis identified. Pt has been given antibiotics, breathing treatments as appropriate, and pt has been instructed to call if symptoms are not improved, or if symptoms acutely worsen. CHECK LABS TODAY INCREASE FOOD INTAKE -MORE SNACKS GET CARNATION INSTANT BREAKFAST AND ADD TO ICE CREAM . HTN-too well controlled-need to decrease medication -will check labs and make adjustments as indicated Weight loss-add carnation instant breakfast-increase snacks-follow up in 1 month for weight check Vitamin d def-check level Dementia - Pt with slowly progressive pattern. I have discussed with pt and family the prognosis of this disease state and the need for the family to anticipate further decline with behavior changes. Continue with current plan of treatment. . Hypertension - well controlled - continue with current medications, continue with no added salt diet. Pt has been encouraged to exercise daily. The pt has been advised to call the office if there are any acute concerns about change in blood pressure readings at home. 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 Arthritis - continue with supportive care. GET TIGER BALM FOR YOUR HIP AND BACK XRAY LEFT HIP AND PELVIS . Hypertension - well controlled - continue with current medications, continue with no added salt diet. Pt has been encouraged to exercise daily. The pt has been advised to call the office if there are any acute concerns about change in blood pressure readings at home. Arthritis- occasionally uncontrolled symptoms- recommend pt to take antiinflammatory as directed for pain control. Use tylenol for break through pain symptoms. Left hip pain-xray left hip and pelvis Chronic Anticoagulant use - Pt has been counseled about the anticoagulant, need for serial monitoring, and need for the pt to alert the physician as to any new bruising, or acute bleeding. Therapeutic goal for INR is between 2.0 and 3.5. . Wound care to lesion -neosporin, call if worsening symptoms - finish antibotics the coumadin 4mg is Saturday/Saturday/Saturday/Saturday the coumadin 5mg is Saturday//Saturday. Hypertension - well controlled - continue with current medications, continue with no added salt diet. Pt has been encouraged to exercise daily. The pt has been advised to call the office if there are any acute concerns about change in blood pressure readings at home. Hyperlipidemia - pt has been counseled about appropriate diet, exercise, and need for low fat food choices. I have discussed the need for the patient to take medications as prescribed. If the patient has negative side effects from the medication, they are to CALL the office and not abruptly discontinue the medication without discussion with a practitioner in the office. We will check labs in 3-6 months for follow up on the patient's chronic medical problem and to assure normal liver response to medications. Chronic Anticoagulant use - Pt has been counseled about the anticoagulant, need for serial monitoring, and need for the pt to alert the physician as to any new bruising, or acute bleeding. Therapeutic goal for INR is between 2.0 and 3.5. 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 start on depakote 125mg at hs the coumadin 4mg is Saturday/Saturday/Saturday/Saturday the coumadin 5mg is Saturday//Saturday. Hypertension - well controlled - continue with current medications, continue with no added salt diet. Pt has been encouraged to exercise daily. The pt has been advised to call the office if there are any acute concerns about change in blood pressure readings at home. Hyperlipidemia - pt has been counseled about appropriate diet, exercise, and need for low fat food choices. I have discussed the need for the patient to take medications as prescribed. If the patient has negative side effects from the medication, they are to CALL the office and not abruptly discontinue the medication without discussion with a practitioner in the office. We will check labs in 3-6 months for follow up on the patient's chronic medical problem and to assure normal liver response to medications. Chronic Anticoagulant use - Pt has been counseled about the anticoagulant, need for serial monitoring, and need for the pt to alert the physician as to any new bruising, or acute bleeding. Therapeutic goal for INR is between 2.0 and 3.5. 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 . Bronchitis - acute case of bronchitis identified. Pt has been given antibiotics, breathing treatments as appropriate, and pt has been instructed to call if symptoms are not improved, or if symptoms acutely worsen. cough - pt to continue with otc robitussin - shot of kenalog today for persistent symptoms of inflammation . Hypertension - well controlled - continue with current medications, continue with no added salt diet. Pt has been encouraged to exercise daily. The pt has been advised to call the office if there are any acute concerns about change in blood pressure readings at home. 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 . UTI - pt with positive urinalysis - culture sent if appropriate. Antibiotic electronically prescribed to pt's pharmacy of choice. Pt to call if symptoms do not improve. 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 The patient is on medication which appears to be controlling the worst of the symptoms. I have not recommended a change to the regimen at this time, but will continue to closely monitor the medications for effectiveness. . Esophageal Reflux - the patient has been counseled against excessive intake of caffeine, spicy foods, peppermint, and cinnamon - all of which can exacerbate esophageal reflux. The patient is to take medications as prescribed and call the office if the symptoms are not improving. Arthritis- occasionally uncontrolled symptoms- recommend pt to take antiinflammatory as directed for pain control. Use tylenol for break through pain symptoms. 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 The patient is on medication which appears to be controlling the worst of the symptoms. I have not recommended a change to the regimen at this time, but will continue to closely monitor the medications for effectiveness. . Edema - pt has been advised to elevate legs to prevent dependent edema, compression has been recommended to help to naturally decrease peripheral edema. Diuretic use has been discussed and pt has been instructed in appropriate use of such medication as necessary to further attempt to reduce peripheral edema. Arthritis- occasionally uncontrolled symptoms- recommend pt to take antiinflammatory as directed for pain control. Use tylenol for break through pain symptoms. 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 The patient is on medication which appears to be controlling the worst of the symptoms. I have not recommended a change to the regimen at this time, but will continue to closely monitor the medications for effectiveness. . Hypertension - well controlled - continue with current medications, continue with no added salt diet. Pt has been encouraged to exercise daily. The pt has been advised to call the office if there are any acute concerns about change in blood pressure readings at home. Sciatica- exercises discussed with the patient, pt to continue with antiinflammatories. Pt is to call if the symptoms do not improve or if they worsen. Check INR today-we'll call you with the results tomorrow. Keep your regular follow up appointment in September. Call with any questions or concerns. . Abnormal bruising-care home coumadin therapy-plan to check PT/INR today in the office and continue to monitor symptoms-instructed patient to call if bleeding/bruising continues or if she becomes weak, dizzy, light headed, etc. Patient and verbalized understanding of plan. Hip pain - pt to use VOLTAREN GEL THREE TIMES DAILY. . Hypertension - well controlled - continue with current medications, continue with no added salt diet. Pt has been encouraged to exercise daily. The pt has been advised to call the office if there are any acute concerns about change in blood pressure readings at home. Arthritis- occasionally uncontrolled symptoms- recommend pt to take antiinflammatory as directed for pain control. Use tylenol for break through pain symptoms. Hip pain - pt to use VOLTAREN GEL THREE TIMES DAILY. . Hypertension - well controlled - continue with current medications, continue with no added salt diet. Pt has been encouraged to exercise daily. The pt has been advised to call the office if there are any acute concerns about change in blood pressure readings at home. 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 The patient is on medication which appears to be controlling the worst of the symptoms. I have not recommended a change to the regimen at this time, but will continue to closely monitor the medications for effectiveness. Left hip arthritis-gait instability-recommend patient use a walker at all times due to increased risk of falling -recommend PT-patient and are not interested in this. . Hypertension - well controlled - continue with current medications, continue with no added salt diet. Pt has been encouraged to exercise daily. The pt has been advised to call the office if there are any acute concerns about change in blood pressure readings at home. 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 The patient is on medication which appears to be controlling the worst of the symptoms. I have not recommended a change to the regimen at this time, but will continue to closely monitor the medications for effectiveness. Left hip arthritis-gait instability-recommend patient use a walker at all times due to increased risk of falling -recommend PT-patient and are not interested in this. Stop the bisoprolol/hctz and the hydrochlorothiazide. START AMLODIPINE 5 mg daily. FOR THEHIP PAIN, WE WILL START A TOPICAL ANTIINFLAMMATORY- Voltaren gel 4 grams to hip and left lower back 4 times daily.. Hypertension - uncontrolled - the patient's medications have been modified as documented in the visit note. The patient has been counseled to cut back on salt in diet for a no added salt diet , low fat diet, start an exercise program with low weight bearing exercises and higher aerobic activity for heart health. The patient is to check blood pressure readings as an outpatient and either fax , call, or email the readings to the office next week for practicioner to review. The pt is to call for acute concerns. Ilitibial band syndrome- recommended use of antiinflammatories and pt given handout on Ilitibial band exercises. Arthritis- occasionally uncontrolled symptoms- recommend pt to take antiinflammatory as directed for pain control. Use tylenol for break through pain symptoms. . Hypertension - well controlled - continue with current medications, continue with no added salt diet. Pt has been encouraged to exercise daily. The pt has been advised to call the office if there are any acute concerns about change in blood pressure readings at home. UTI - pt with positive urinalysis - culture sent. Antibiotic electronically prescribed to pt's pharmacy of choice. Pt to call if symptoms do not improve. Hyperlipidemia - pt has been counseled about appropriate diet, exercise, and need for low fat food choices. I have discussed the need for the patient to take medications as prescribed. If the patient has negative side effects from the medication, they are to CALL the office and not abruptly discontinue the medication without discussion with a practitioner in the office. We will check labs in 3-6 months for follow up on the patient's chronic medical problem and to assure normal liver response to medications. Sebaceous cyst - behind left ear -re-eval in 3 weeks CHANGE DRESSING ON SATURDAY AND RETURN TO [facility] ON SATURDAY FOR EVAL OF THE LESION. Cellulitis - continue with oral antibiotics as previously directed, return to clinic as previously directed, call for acute change in symptoms, worsening redness, warmth, discharge. on 2nd digit right fot debrided and dressing placed over the wound. Arthritis- occasionally uncontrolled symptoms- Use tylenol for break through pain symptoms. . Sacroilitis-sciatica - back exercises discussed with the patient, pt to continue with antiinflammatories. Pt is to call if the symptoms do not improve or if they worsen. Offered injection today in the office-patient declines but will call if pain worsens . Bronchitis - Pt has been diagnosed with bronchitis by physical exam. The pt is aware of the diagnosis and the need for acute treatment of this illness. pt has been on treatment - is improving - her cough should slowly improve with time and her is to call if there is not further improvement in the next 1 week. Memory loss - progressive. I have asked the patient and her to consider other arrangements for their living as Nicole is showing more symptoms of memory loss. . Hypertension - well controlled - continue with current medications, continue with no added salt diet. Pt has been encouraged to exercise daily. The pt has been advised to call the office if there are any acute concerns about change in blood pressure readings at home. cryotherapy over left eyebrow Hyperlipidemia - pt has been counseled about appropriate diet, exercise, and need for low fat food choices. I have discussed the need for the patient to take medications as prescribed. If the patient has negative side effects from the medication, they are to CALL the office and not abruptly discontinue the medication without discussion with a practitioner in the office. We will check labs in 3-6 months for follow up on the patient's chronic medical problem and to assure normal liver response to medications. . Left leg ecchymosis - improving - no changes at this time , continue to monitor, pt is to notify clinic or go to the ER with any acute changes, questions or concerns. Arthritis- occasionally uncontrolled symptoms- recommend pt to take antiinflammatory as directed for pain control. Use tylenol for break through pain symptoms. 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 The patient is on medication which appears to be controlling the worst of the symptoms. I have not recommended a change to the regimen at this time, but will continue to closely monitor the medications for effectiveness. . Arthritis- occasionally uncontrolled symptoms- recommend pt to take antiinflammatory as directed for pain control. Use tylenol for break through pain symptoms. 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 The patient is on medication which appears to be controlling the worst of the symptoms. I have not recommended a change to the regimen at this time, but will continue to closely monitor the medications for effectiveness. . Hypertension - well controlled - continue with current medications, continue with no added salt diet. Pt has been encouraged to exercise daily. The pt has been advised to call the office if there are any acute concerns about change in blood pressure readings at home. . Hypertension - well controlled - continue with current medications, continue with no added salt diet. Pt has been encouraged to exercise daily. The pt has been advised to call the office if there are any acute concerns about change in blood pressure readings at home. . Hypertension - well controlled - continue with current medications, continue with no added salt diet. Pt has been encouraged to exercise daily. The pt has been advised to call the office if there are any acute concerns about change in blood pressure readings at home. Lateral Femoral Cutaneous nerve pain - pt given injection today. . Hypertension - well controlled - continue with current medications, continue with no added salt diet. Pt has been encouraged to exercise daily. The pt has been advised to call the office if there are any acute concerns about change in blood pressure readings at home. Greater Trochanteric Bursa Injection - Pt was given post - injection instructions. The pt has been advised to use antiinflammatories post injection today, ice to the injected site, call if redness, warmth, or increased pain occurs at the site of injection. Ssacroilitis- exercises discussed with the patient, pt to continue with antiinflammatories. Pt is to call if the symptoms do not improve or if they worsen.
--- OUTSIDE RECORDS SUMMARY | 2018-08-26 10:27 | XMS REPORT | CCD ---
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 Name Role Phone PP Unavailable CCM Unavailable Summary Purpose Interface Exchange Insurance Providers Payer name Policy type / Coverage type Covered alliance party ID Effective Begin Date Effective End Date WPS Medicare Part B Medicare Part B [id number] 2013 Unknown [facility] Medicare Part B [id number] 2013 Unknown Family history Brother Diagnosis Age [...] 2 1 in 2010, 1 lives in [place] 11/07/2016 Marital status Unknown 04/28/2012 Employment Unknown Retired 04/28/[address]: 7586263 Quit over 10 years ago 04/28/[address]: 939903287 Never drinks alcohol 04/28/2012 Allergies, Adverse Reactions, [...] 788.1 ICD-10: R30.0 Active 01/07/2017 Unknown Other nursing home (current) drug therapy ICD-9: V58.69 ICD-10: [...] ICD-9: 788.1 ICD-10: R30.0 01/07/2017 Active 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 ICD-9: V58.69 ICD-10: Z79.899 [...] Instructions Vitamin D3 5,000 unit tablet RxNorm: 693466 1 Tablet(s) PO daily 08/18/2018 02/13/2019 Active may give OTC bottle Coumadin 5 mg tablet RxNorm: 190072 1 Tablet(s) PO daily except 1/2 Tab on Sat, Sat07/21/2018 01/18/2019 Active hydrochlorothiazide 12.5 mg tablet RxNorm: 561128 1 Tablet(s) PO daily 07/11/2018 02/05/2019 Active Depakote 125 mg tablet,delayed release RxNorm: 5404113 Tablet(s) Tablet(s) 1 Tablet(s) PO QPM 05/16/2018 12/11/2018 Active PLEASE SEND REFILL REQUESTS ELECTRONICALLY pravastatin 40 mg tablet RxNorm: 711425 TAKE ONE TABLET BY MOUTH EVERY DAY 03/17/2018 02/09/2019 Active Generic For:*PRAVACHOL 40 MG TABLET 03/17/2018 8:03:02 AM amlodipine 5 mg tablet RxNorm: 481788 TAKE ONE (1) TABLET BY MOUTH DAILY 02/18/2018 02/12/2019 Active Generic For:NORVASC 5 MG TABLET 02/18/2018 10:12:27 AM Vitamin D3 5,000 unit tablet RxNorm: 139363 1 Tablet(s) PO daily 02/14/2018 02/13/2018 Inactive Vitamin D2 50,000 unit capsule RxNorm: 2780448 1 Capsule(s) PO QW 02/14/2018 02/13/2018 Inactive Vitamin D3 5,000 unit tablet RxNorm: 305899 1 Tablet(s) PO daily 02/14/2018 08/12/2018 Inactive may give OTC bottle Vitamin D2 50,000 unit capsule RxNorm: 1950216 1 Capsule(s) PO QW x8 weeks then stop 02/14/2018 04/14/2018 Inactive amlodipine 5 mg tablet RxNorm: 402416 1 Tablet(s) PO daily 02/17/2018 Inactive Generic For:NORVASC 5 MG TABLET REFILL REQUEST 08/27/2016 10:47:17 AM Coumadin 5 mg tablet RxNorm: 426415 1 Tablet(s) PO daily except 1/2 Tab on Wed, Sat12/16/2017 06/15/2018 Inactive hydrochlorothiazide 12.5 mg tablet RxNorm: 590050 1 Tablet(s) PO daily 12/16/2017 07/10/2018 Inactive hydrochlorothiazide 12.5 mg tablet RxNorm: 190095 Tablet(s) Tablet(s) 1 Tablet(s) PO daily 11/18/2017 12/15/2017 Inactive PLEASE SEND REFILL REQUESTS ELECTRONICALLY Depakote 125 mg tablet,delayed release RxNorm: 7625041 Tablet(s) Tablet(s) 1 Tablet(s) PO QPM 10/17/2017 05/14/2018 Inactive PLEASE SEND REFILL REQUESTS ELECTRONICALLY hydrochlorothiazide 12.5 mg tablet RxNorm: 956525 Tablet(s) Tablet(s) 1 Tablet(s) PO daily 10/17/2017 11/17/2017 Inactive PLEASE SEND REFILL REQUESTS ELECTRONICALLY Coumadin 5 mg tablet RxNorm: 360237 1 Tablet(s) daily TAKE 1 TABLET BY MOUTH DAILY 08/15/2017 12/15/2017 Inactive Coumadin 5 mg tablet RxNorm: 595459 Tablet(s) TAKE 1 TABLET BY MOUTH DAILY 06/24/2017 08/14/2017 Inactive pravastatin 40 mg tablet RxNorm: 566765 Tablet(s) TAKE ONE TABLET BY MOUTH EVERY DAY 05/27/2017 03/16/2018 Inactive Voltaren 1 % topical gel RxNorm: 357034 4 Gram(s) TOP QID 05/2106/19/2017 Inactive Depakote 125 mg tablet,delayed release RxNorm: 4637929 Tablet(s) 1 Tablet(s) PO QPM 04/22/2017 10/16/2017 Inactive hydrochlorothiazide 12.5 mg tablet RxNorm: 858333 Tablet(s) 1 Tablet(s) PO daily 03/22/2017 10/16/2017 Inactive amlodipine 5 mg tablet RxNorm: 480687 1 Tablet(s) PO daily 02/12/2018 Inactive Generic For:NORVASC 5 MG TABLET REFILL REQUEST 08/27/2016 10:47:17 AM cephalexin 500 mg tablet RxNorm: 804701 1 Tablet(s) PO TID 01/17/2017 Inactive cephalexin 500 mg tablet RxNorm: 836496 1 Tablet(s) PO TID 01/07/2017 Inactive Coumadin 5 mg tablet RxNorm: 198438 TAKE 1 TABLET BY MOUTH DAILY EXCEPT 1/2 TABLET ON SATURDAY AND Saturday12/26/2016 06/23/2017 Inactive Generic For:COUMADIN 5MG TAB 12/26/2016 9:17:49 AM N O T I C E Last quantity doesn't match original quantity Depakote 125 mg tablet,delayed release RxNorm: 7998165 Tablet(s) 1 Tablet(s) PO QPM 10/25/2016 04/21/2017 Inactive Coumadin 5 mg tablet RxNorm: 893954 TAKE 1 TABLET BY MOUTH DAILY EXCEPT 1/2 TABLET ON SATURDAY AND Saturday09/27/2016 12/25/2016 Inactive Generic For:COUMADIN 5MG TAB N O T I C E Last quantity doesn't match original quantity REFILL REQUEST 09/27/2016 9:43:11 AM Coumadin 4 mg tablet RxNorm: 534219 Tablet(s) as doctor directed TAKE 1 TABLET 4 days per week 09/27/2016 04/24/2017 Inactive Generic For:COUMADIN 4MG TAB amlodipine 5 mg tablet RxNorm: 855384 TAKE 1 TABLET BY MOUTH DAILY 08/27/2016 09/26/2016 Inactive Generic For:NORVASC 5 MG TABLET REFILL REQUEST 08/27/2016 10:47: 17 AM hydrochlorothiazide 12.5 mg tablet RxNorm: 648668 Tablet(s) 1 Tablet(s) PO daily 08/27/2016 03/21/2017 Inactive pravastatin 40 mg tablet RxNorm: 227479 Tablet(s) TAKE ONE TABLET BY MOUTH EVERY DAY 06/29/2016 05/24/2017 Inactive Coumadin 5 mg tablet RxNorm: 360472 1 Tablet(s) PO daily except 1/2 tab on Tu, 06/14/2016 09/26/2016 Inactive Coumadin 5 mg tablet RxNorm: 970222 1 Tablet(s) PO daily except 1/2 tab on Tues, Sat 06/12/2016 12/08/2016 Inactive Depakote 125 mg tablet,delayed release RxNorm: 3978114 1 Tablet(s) PO QPM 04/30/2016 10/24/2016 Inactive amlodipine 5 mg tablet RxNorm: 768754 Tablet(s) TAKE ONE TABLET BY MOUTH EVERY DAY 03/06/2016 08/26/2016 Inactive Generic For:NORVASC 5 MG TABLET 2015 9:02 :57 AM N O T I C E Last quantity doesn't match original quantity hydrochlorothiazide 12.5 mg tablet RxNorm: 213129 1 Tablet(s) PO daily 02/01/2016 08/26/2016 Inactive Coumadin 5 mg tablet RxNorm: 481836 1 Tablet(s) PO daily except 1/2 tab on , [facility] 12/26/2015 06/11/2016 Inactive Coumadin 5 mg tablet RxNorm: 367343 TAKE 1 TABLET BY MOUTH 3 DAYS PER WEEK ([facility]) 11/10/2015 12/25/2015 Inactive Generic For:COUMADIN 5MG TAB PT SAYS TAKING DIFFERENT NOW...WE NEED NEW RX PLEASE Coumadin 5 mg tablet RxNorm: 938092 Tablet(s) TAKE 1 TABLET BY MOUTH 5 DAYS PER WEEK [place] Sat11/04/201511/08 Inactive Generic For:COUMADIN 5MG TAB 10/04/2015 10:19:46 AM Depakote 125 mg tablet,delayed release RxNorm: 1733046 1 Tablet(s) PO QPM 11/04/2015 04/29/2016 Inactive Coumadin 5 mg tablet RxNorm: 359750 TAKE 1 TABLET BY MOUTH 3 DAYS PER WEEK ([facility]) 10/04/2015 11/03/2015 Inactive Generic For:COUMADIN 5MG TAB 10/04/2015 10:19:46 AM amlodipine 5 mg tablet RxNorm: 714340 Tablet(s) TAKE ONE TABLET BY MOUTH EVERY DAY 09/12/2015 03/05/2016 Inactive Generic For:NORVASC 5 MG TABLET 2015 9:02 :57 AM N O T I C E Last quantity doesn't match original quantity Coumadin 5 mg tablet RxNorm: 351000 1 Tablet(s) daily 201510/03/2015 Inactive Voltaren 1 % topical gel RxNorm: 547199 4 Gram(s) TOP QID 06/2904/24/2016 Inactive Depakote 125 mg tablet,delayed release RxNorm: 6159952 1 Tablet(s) PO QPM 06/29/2015 10/26/2015 Inactive hydrochlorothiazide 12.5 mg tablet RxNorm: 700385 1 Tablet(s) PO daily 06/29/2015 01/24/2016 Inactive Depakote 125 mg tablet,delayed release RxNorm: 7895924 1 Tablet(s) PO QPM 06/29/2015 06/28/2015 Inactive pravastatin 40 mg tablet RxNorm: 185039 Tablet(s) TAKE ONE TABLET BY MOUTH EVERY DAY 06/29/2015 06/28/2016 Inactive Generic For:*PRAVACHOL 40 MG TABLET Coumadin 5 mg tablet RxNorm: 534716 1 Tablet(s) PO TUE, THUR, SAT 3 days per week 05/09/2015 06/30/2015 Inactive take 4mg on sun sat amlodipine 5 mg tablet RxNorm: 937989 TAKE ONE TABLET BY MOUTH EVERY DAY 2015 09/06/2015 Inactive Generic For:NORVASC 5 MG TABLET 2015 9:02:57 AM N O T I C E Last quantity doesn't match original quantity Coumadin 5 mg tablet RxNorm: 904261 1 Tablet(s) PO TUE, THUR, SAT 3 days per week 11/15/2014 05/08/2015 Inactive take 4mg on sun sat Coumadin 4 mg tablet RxNorm: 377489 Tablet(s) as doctor directed TAKE 1 TABLET 4 days per week 11/15/2014 06/12/2015 Inactive Generic For:COUMADIN 4MG TAB Coumadin 5 mg tablet RxNorm: 229909 1 Tablet(s) PO TUE, THUR, SAT 10/27/2014 11/14/2014 Inactive TAKE 4MG ON SUN Sat [SAVINGS FOR NON-COVERED DRUGS -- BIN: [id number], PCN: ASPROD1, Group: XXXXX, ID# [id number], Questions: . THIS IS NOT INSURANCE.] Coumadin 5 mg tablet RxNorm: 618401 1 Tablet(s) PO TUE, THUR, SAT 10/27/2014 10/26/2014 Inactive amlodipine 5 mg tablet RxNorm: 181073 1 Tablet(s) PO daily 03/10/2015 Inactive Generic For:NORVASC 5 MG TABLET Generic For:NORVASC 5 MG TABLET 2012 8:54:53 AM pravastatin 40 mg tablet RxNorm: 164655 TAKE ONE TABLET BY MOUTH EVERY DAY 08/12/2014 06/28/2015 Inactive Generic For:*PRAVACHOL 40 MG TABLET Coumadin 4 mg tablet RxNorm: 590710 TAKE 1 TABLET BY MOUTH DAILY 08/12/2014 11/14/2014 Inactive Generic For:COUMADIN 4MG TAB pravastatin 40 mg tablet RxNorm: 419374 1 Tablet(s) PO daily TAKE ONE TABLET BY MOUTH EVERY DAY 08/11/2014 08/11/2014 Inactive Generic For:*PRAVACHOL 40 MG TABLET Generic For:*PRAVACHOL 40 MG TABLET Coumadin 4 mg tablet RxNorm: 391887 Tablet(s) PO TAKE ONE TABLET BY MOUTH EVERY DAY 08/11/2014 08/11/2014 Inactive Generic For:COUMADIN 4MG TAB Generic For: COUMADIN 4MG TAB [SAVINGS FOR NON-COVERED DRUGS -- BIN:[id number], PCN: ASPROD1, Group: XXXXX, ID# [id number], Questions: . THIS IS NOT INSURANCE.] amlodipine 5 mg tablet RxNorm: 345539 1 Tablet(s) daily 1 Tablet(s) PO daily TAKE ONE (1) TABLET BY MOUTH DAILY 05/12/2014 09/13/2014 Inactive Generic For:NORVASC 5 MG TABLET Generic For:NORVASC 5 MG TABLET 05/18/2013 8:54:53 AM amlodipine 5 mg tablet RxNorm: 817735 1 Tablet(s) PO daily TAKE ONE (1) TABLET BY MOUTH DAILY 01/14/2014 05/11/2014 Inactive Generic For:NORVASC 5 MG TABLET Generic For:NORVASC 5 MG TABLET 05/18/2013 8:54:53 AM Coumadin 4 mg tablet RxNorm: 219954 TAKE 1 TABLET BY MOUTH DAILY 01/14/2014 08/11/2014 Inactive Generic For:COUMADIN 4MG TAB amlodipine 5 mg tablet RxNorm: 669737 1 Tablet(s) PO daily TAKE ONE (1) TABLET BY MOUTH DAILY 01/14/2014 01/08/2015 Inactive Generic For:NORVASC 5 MG TABLET Generic For:NORVASC 5 MG TABLET 05/18/2013 8:54:53 AM amlodipine 5 mg tablet RxNorm: 253416 1 Tablet(s) PO daily TAKE ONE (1) TABLET BY MOUTH DAILY 09/18/2013 01/13/2014 Inactive Generic For:NORVASC 5 MG TABLET Generic For:NORVASC 5 MG TABLET 05/18/2013 8:54:53 AM Coumadin 4 mg tablet RxNorm: 763281 4mg daily Tablet(s) PO daily 07/30/2013 01/13/2014 Inactive Generic For:COUMADIN 4MG TAB pravastatin 40 mg tablet RxNorm: 229081 Tablet(s) PO TAKE ONE TABLET BY MOUTH EVERY DAY 07/20/2013 08/10/2014 Inactive Generic For:*PRAVACHOL 40 MG TABLET Generic For:*PRAVACHOL 40 MG TABLET Kenalog 40 mg/mL suspension for injection RxNorm: 0306792 Milliliter(s) Inj 05/20/2013 05/20/2013 Inactive azithromycin 500 mg tablet RxNorm: 9740262 1 Tablet(s) PO daily 05/20/2013 05/24/2013 Inactive amlodipine 5 mg tablet RxNorm: 286436 Tablet(s) PO TAKE ONE (1) TABLET BY MOUTH DAILY 05/18/2013 05/17/2013 Inactive Generic For:NORVASC 5 MG TABLET Generic For: NORVASC 5 MG TABLET 05/18/2013 8:54:53 AM amlodipine 5 mg tablet RxNorm: 392992 1 Tablet(s) PO daily TAKE ONE (1) TABLET BY MOUTH DAILY 05/18/2013 09/17/2013 Inactive Generic For:NORVASC 5 MG TABLET Generic For:NORVASC 5 MG TABLET 05/18/2013 8:54:53 AM Coumadin 4 mg tablet RxNorm: 715966 2mg wed 4 mg other Tablet(s) PO daily 04/28/2013 07/29/2013 Inactive Generic For:COUMADIN 4MG TAB Coumadin 4 mg tablet RxNorm: 096703 4mg daily Tablet(s) PO daily 04/16/2013 04/27/2013 Inactive Generic For:COUMADIN 4MG TAB Rocephin 500 mg solution for injection RxNorm: 656638 Inj 04/1604/16/2013 Inactive amoxicillin 500 mg tablet RxNorm: 829982 1 Tablet(s) PO TID 04/22/2013 Inactive Coumadin 4 mg tablet RxNorm: 790057 Tablet(s) PO TAKE ONE TABLET BY MOUTH EVERY DAY 04/16/2013 08/10/2014 Inactive Generic For:COUMADIN 4MG TAB Generic For: COUMADIN 4MG TAB Coumadin 4 mg tablet RxNorm: 913067 4mg daily Tablet(s) PO daily 03/18/2013 04/15/2013 Inactive Generic For:COUMADIN 4MG TAB Coumadin 4 mg tablet RxNorm: 532898 2mg on tuesdays, 4mg others Tablet(s) PO daily 03/10/2013 03/17/2013 Inactive Generic For:COUMADIN 4MG TAB Influenza Virus Vaccine 0.5 mL RxNorm: IM 03/10/2013 03/10/2013 Inactive amlodipine 5 mg tablet RxNorm: 208952 Tablet(s) PO TAKE ONE (1) TABLET BY MOUTH DAILY 01/22/2013 05/17/2013 Inactive Generic For:NORVASC 5 MG TABLET 01/22/2013 9: 42:13 AM cephalexin 500 mg tablet RxNorm: 217556 1 Tablet(s) PO TID 12/08/2012 Inactive amlodipine 5 mg tablet RxNorm: 256627 Tablet(s) PO TAKE ONE (1) TABLET BY MOUTH DAILY 09/22/2012 01/21/2013 Inactive Generic For:NORVASC 5 MG TABLET 09/20/2012 9: 10AM Nicole is wanting to mushroom picker Saturday. Thank you! Coumadin 4 mg tablet RxNorm: 303224 1 Tablet(s) PO daily TAKE ONE TABLET BY MOUTH EVERY DAY 09/15/2012 03/09/2013 Inactive Generic For:COUMADIN 4MG TAB Coumadin 4 mg tablet RxNorm: 040289 Tablet(s) PO TAKE ONE TABLET BY MOUTH EVERY DAY 09/12/2012 09/14/2012 Inactive Generic For:COUMADIN 4MG TAB Coumadin 4 mg tablet RxNorm: 719971 1 Tablet(s) PO daily 201209/11/2012 Inactive new dose Coumadin 4 mg tablet RxNorm: 247577 1 Tablet(s) PO daily 201207/15/2012 Inactive Coumadin 3 mg tablet RxNorm: 156190 1 1/2 Tablet(s) PO daily 07/16/2012 Inactive pravastatin 40 mg tablet RxNorm: 453200 1 Tablet(s) PO daily 07/19/2013 Inactive Coumadin 3 mg tablet RxNorm: 684948 1 1/2 Tablet(s) PO daily 07/15/2012 Inactive amlodipine 5 mg tablet RxNorm: 683562 1 Tablet(s) PO daily 05/201209/21/2012 Inactive Voltaren 1 % Topical Gel RxNorm: 510962 4 Gram(s) TOP QID 04/2805/27/2012 Inactive Chikis 180 mg tablet RxNorm: 952863 1 Tablet(s) PO daily No Start Date Active hydrochlorothiazide 12.5 mg tablet RxNorm: 939394 1 Tablet(s) PO daily No Start Date 06/28/2015 Inactive Ziac 2.5 mg-6.25 mg tablet RxNorm: 153406 1 Tablet(s) PO daily No Start Date 09/15/2013 Inactive Coumadin 3 mg tablet RxNorm: 966844 Tablet(s) PO No Start Date 04/30/2012 Inactive pravastatin 40 mg tablet RxNorm: 155998 1 Tablet(s) PO daily No Start Date 06/25/2012 Inactive Medication Administered Medication Codes Instructions Start Date Status Kenalog 40 mg/mL suspension for injection RxNorm: 9508971 Milliliter 05/20/2013 No longer Active Rocephin 500 mg solution for injection RxNorm: 899695 04/16/2013 No longer Active Influenza Virus Vaccine [...] Dysuria ICD-10: R30.0 ICD-9: 788.1 01/07/2017 Other nursing home (current) drug therapy ICD-10: Z79.899 ICD-9: [...] Item Item Code Result Date Valproic Acid Kvc928 VALPROIC 26.0 ug/ml 08/19/2018 Comp Metabolic Epj461 NA 141 mEq/L 08/19/2018 Comp Metabolic Jgp195 K 3.9 mEq/L 08/19/2018 Comp Metabolic Ymk622 CL 105 mEq/L 08/19/2018 Comp Metabolic Teg605 CO2 26.0 mEq/L 08/19/2018 Comp Metabolic Xzp021 ANION GAP 14 08/19/2018 Comp Metabolic Wqk905 GLUCOSE 90 mg/dL 08/19/2018 Comp Metabolic Ybn380 Creat 0.9 mg/dL 08/19/2018 Comp Metabolic Ght624 eGFR 60 ml/min/1.73m2 08/19/2018 Comp Metabolic Lou775 BUN 15 mg/dL 08/19/2018 Comp Metabolic Zbq879 B/C Ratio 16.0 Ratio 08/19/2018 Comp Metabolic Ugy949 CALCIUM 9.8 mg/dL 08/19/2018 Comp Metabolic Dgb089 ALK PHOS 55 U/L 08/19/2018 Comp Metabolic Rus058 AST(SGOT) 13 U/L 08/19/2018 Comp Metabolic Usg282 ALT(SGPT) 8 U/L 08/19/2018 Comp Metabolic Kga365 BILI T 0.5 mg/dL 08/19/2018 Comp Metabolic Jms908 ALBUMIN 3.9 g/dL 08/19/2018 Comp Metabolic Cea419 TPRO 6.6 g/dL 08/19/2018 Comp Metabolic Laq672 GLOB 2.7 g/dL 08/19/2018 Comp Metabolic Rky545 A/G Ratio 1.4 Ratio 08/19/2018 Comp Metabolic Cjm532 Osmo 282 mOsmo 08/19/2018 Cbc With Differential [...] 33.1 pg 08/19/2018 Cbc With Differential Ord2 [place]% 9.1 % 08/19/2018 Cbc With Differential Ord2 [...] 1.01 K/ul 08/19/2018 Cbc With Differential Ord2 [place] ABS# 0.5 K/ul 08/19/2018 Cbc With Differential Ord2 Eos ABS# 0.1 K/ul 08/19/2018 Cbc With Differential Ord2 Baso ABS# 0.0 K/ul 08/19/2018 Tsh Ord6 TSH (3rd IS) 2.91 uIU/mL 08/19/2018 Vitamin D 25 Oh Bwh7943 VITAMIN D, 25 HYDROXY 87.16 ng/mL Pt Ezo3146 PT 27.0 seconds 08/18/2018 Pt Now6282 INR 2.5 08/18/2018 Pt Ric7780 Low Intensity - 1.5-2.0 08/18/2018 Pt Jbq9785 Mod intensity - 2.0-3.0 08/18/2018 Pt Ubp8771 Hi intensity - 3.0-4.0 08/18/2018 Pt Wpi2599 PT 30.3 seconds 07/18/2018 Pt Slt4222 INR 2.9 07/18/2018 Pt Dnf8057 Low Intensity - 1.5-2.0 07/18/2018 Pt Zxd4760 Mod intensity - 2.0-3.0 07/18/2018 Pt Nvv6696 Hi intensity - 3.0-4.0 07/18/2018 Pt Dsu9560 PT 32.5 seconds 06/20/2018 Pt Ewo9150 INR 3.2 06/20/2018 Pt Glm1691 Low Intensity - 1.5-2.0 06/20/2018 Pt Qhm8148 Mod intensity - 2.0-3.0 06/20/2018 Pt Wud5994 Hi intensity - 3.0-4.0 06/20/2018 Pt Wmi5296 PT 30.3 seconds 05/19/2018 Pt Vnf3324 INR 2.9 05/19/2018 Pt Iqo3278 Low Intensity - 1.5-2.0 05/19/2018 Pt Spw0405 Mod intensity - 2.0-3.0 05/19/2018 Pt Rbj9317 Hi intensity - 3.0-4.0 05/19/2018 Pt Vip6976 PT 28.9 seconds 04/18/2018 Pt Fgo6172 INR 2.8 04/18/2018 Pt Idu6116 Low Intensity - 1.5-2.0 04/18/2018 Pt Twg6375 Mod intensity - 2.0-3.0 04/18/2018 Pt Jsy4044 Hi intensity - 3.0-4.0 04/18/2018 Pt Zfn4382 PT 23.6 seconds 03/14/2018 Pt Zyc9765 INR 2.1 03/14/2018 Pt Wzf7758 Low Intensity - 1.5-2.0 03/14/2018 Pt Azh3292 Mod intensity - 2.0-3.0 03/14/2018 Pt Zgg7422 Hi intensity - 3.0-4.0 03/14/2018 Tsh Ord6 [...] 32.5 pg 02/14/2018 Cbc With Differential Ord2 [place]% 12.8 % 02/14/2018 Cbc With Differential Ord2 [...] 0.88 K/ul 02/14/2018 Cbc With Differential Ord2 [place] ABS# 0.6 K/ul 02/14/2018 Cbc With Differential Ord2 Eos ABS# 0.1 K/ul 02/14/2018 Cbc With Differential Ord2 Baso ABS# 0.0 K/ul 02/14/2018 Comp Metabolic Jyx329 NA 142 mEq/L 02/14/2018 Comp Metabolic Okl349 K 4.0 mEq/L 02/14/2018 Comp Metabolic Hrt019 CL 107 mEq/L 02/14/2018 Comp Metabolic Fde185 CO2 25.0 mEq/L 02/14/2018 Comp Metabolic Hzh185 ANION GAP 14 02/14/2018 Comp Metabolic Ppo692 GLUCOSE 71 mg/dL 02/14/2018 Comp Metabolic Amk407 Creat 0.8 mg/dL 02/14/2018 Comp Metabolic Jjw012 eGFR 77 ml/min/1.73m2 02/14/2018 Comp Metabolic Wku485 BUN 11 mg/dL 02/14/2018 Comp Metabolic Iyh622 B/C Ratio 14.5 Ratio 02/14/2018 Comp Metabolic Cej201 CALCIUM 9.3 mg/dL 02/14/2018 Comp Metabolic Nrv950 ALK PHOS 56 U/L 02/14/2018 Comp Metabolic Meu681 AST(SGOT) 13 U/L 02/14/2018 Comp Metabolic Zxy164 ALT(SGPT) 8 U/L 02/14/2018 Comp Metabolic Yqg309 BILI T 0.7 mg/dL 02/14/2018 Comp Metabolic Dlg511 ALBUMIN 3.7 g/dL 02/14/2018 Comp Metabolic Jjm570 TPRO 6.5 g/dL 02/14/2018 Comp Metabolic Nyz105 GLOB 2.8 g/dL 02/14/2018 Comp Metabolic Xxd506 A/G Ratio 1.3 Ratio 02/14/2018 Comp Metabolic Opr411 Osmo 281 mOsmo 02/14/2018 Pt Qmz3304 PT 26.2 seconds 02/14/2018 Pt Xcq6022 INR 2.4 02/14/2018 Pt Ehj2047 Low Intensity - 1.5-2.0 02/14/2018 Pt Ojf3071 Mod intensity - 2.0-3.0 02/14/2018 Pt Mgo9770 Hi intensity - 3.0-4.0 02/14/2018 Vitamin D 25 Oh Qqq1337 VITAMIN D, 25 HYDROXY 14.31 ng/mL Valproic Acid Aqt902 VALPROIC 20.0 ug/ml 02/14/2018 Pt Onf8129 PT 29.2 seconds 01/16/2018 Pt Hco2704 INR 2.7 01/16/2018 Pt Lsi8840 Low Intensity - 1.5-2.0 01/16/2018 Pt Yir3296 Mod intensity - 2.0-3.0 01/16/2018 Pt Flg5088 Hi intensity - 3.0-4.0 01/16/2018 Pt Buq5427 PT 29.1 seconds 12/09/2017 Pt Frs5678 INR 2.7 12/09/2017 Pt Awy4356 Low Intensity - 1.5-2.0 12/09/2017 Pt Ubw7169 Mod intensity - 2.0-3.0 12/09/2017 Pt Yra9418 Hi intensity - 3.0-4.0 12/09/2017 Pt Whk7836 PT 25.5 seconds 10/31/2017 Pt Idg3874 INR 2.3 10/31/2017 Pt Ibs8934 Low Intensity - 1.5-2.0 10/31/2017 Pt Bms7779 Mod intensity - 2.0-3.0 10/31/2017 Pt Jlq2916 Hi intensity - 3.0-4.0 10/31/2017 Pt Mqi7088 PT 29.5 seconds 10/03/2017 Pt Uuo9123 INR 2.8 10/03/2017 Pt Cfn9790 Low Intensity - 1.5-2.0 10/03/2017 Pt Ymg0413 Mod intensity - 2.0-3.0 10/03/2017 Pt Gkl8306 Hi intensity - 3.0-4.0 10/03/2017 Pt Bbw4874 PT 28.1 seconds 08/30/2017 Pt Iyb9415 INR 2.6 08/30/2017 Pt Oir1221 Low Intensity - 1.5-2.0 08/30/2017 Pt Bvm1067 Mod intensity - 2.0-3.0 08/30/2017 Pt Cpd0402 Hi intensity - 3.0-4.0 08/30/2017 Pt Tqj4288 PT 33.2 seconds 08/15/2017 Pt Jgh3365 INR 3.2 08/15/2017 Pt Ahx6098 Low Intensity - 1.5-2.0 08/15/2017 Pt Nkz0256 Mod intensity - 2.0-3.0 08/15/2017 Pt Hmn7982 Hi intensity - 3.0-4.0 08/15/2017 Pt Ooy6018 PT 31.5 seconds 07/10/2017 Pt Zhn4405 INR 3.0 07/10/2017 Pt Dua4679 Low Intensity - 1.5-2.0 07/10/2017 Pt Uvr7774 Mod intensity - 2.0-3.0 07/10/2017 Pt Daj5564 Hi intensity - 3.0-4.0 07/10/2017 Pt Kgu2583 PT 33.5 seconds 05/31/2017 Pt Stl3023 INR 3.2 05/31/2017 Pt Caz0495 Low Intensity - 1.5-2.0 05/31/2017 Pt Sdk7974 Mod intensity - 2.0-3.0 05/31/2017 Pt Dfx8712 Hi intensity - 3.0-4.0 05/31/2017 Pt Xfy8894 PT 32.2 seconds 05/02/2017 Pt Fmo4229 INR 3.1 05/02/2017 Pt Rmt2847 Low Intensity - 1.5-2.0 05/02/2017 Pt Vol4142 Mod intensity - 2.0-3.0 05/02/2017 Pt Myy8267 Hi intensity - 3.0-4.0 05/02/2017 Pt Zar9631 PT 26.8 seconds 03/28/2017 Pt Miq5783 INR 2.5 03/28/2017 Pt Iff2664 Low Intensity - 1.5-2.0 03/28/2017 Pt Psq6822 Mod intensity - 2.0-3.0 03/28/2017 Pt Ras4389 Hi intensity - 3.0-4.0 03/28/2017 Pt Xkz5881 PT 26.8 seconds 02/22/2017 Pt Lck4056 INR 2.5 02/22/2017 Pt Hdx6202 Low Intensity - 1.5-2.0 02/22/2017 Pt Vgl6004 Mod intensity - 2.0-3.0 02/22/2017 Pt Oti6136 Hi intensity - 3.0-4.0 02/22/2017 Pt Tix8745 PT 20.1 seconds 02/07/2017 Pt Fem2243 INR 1.7 02/07/2017 Pt Yqr6304 Low Intensity - 1.5-2.0 02/07/2017 Pt Orf1248 Mod intensity - 2.0-3.0 02/07/2017 Pt Zoc9551 Hi intensity - 3.0-4.0 02/07/2017 Culture Urine [id number] URINE CULTURE SEE NOTES 01/10/2017 Culture Urine [id number] Continued Results 01/10/2017 Urine Culture Ucult Complete >100,000 col/ml aerobic growth sent to ref lab 01/08/2017 Valproic Acid (Depakote) S 350534 VALPROIC ACID 20.3 ug/mL 01/08/2017 Tsh Ord6 [...] 32.0 pg 01/07/2017 Cbc With Differential Ord2 [place]% 10.5 % 01/07/2017 Cbc With Differential Ord2 [...] 0.97 K/ul 01/07/2017 Cbc With Differential Ord2 [place] ABS# 0.5 K/ul 01/07/2017 Cbc With Differential Ord2 [place] ABS# 0.1 K/ul 01/07/2017 Cbc With Differential Ord2 Baso ABS# 0.0 K/ul 01/07/2017 Comp Metabolic Xuj811 NA 142 mEq/L 01/07/2017 Comp Metabolic Kly820 K 4.0 mEq/L 01/07/2017 Comp Metabolic Ldm484 CL 105 mEq/L 01/07/2017 Comp Metabolic Bbv069 CO2 24.0 mEq/L 01/07/2017 Comp Metabolic Ywy135 ANION GAP 17 01/07/2017 Comp Metabolic Kim780 GLUCOSE 81 mg/dL 01/07/2017 Comp Metabolic Gkh205 Creat 0.8 mg/dL 01/07/2017 Comp Metabolic Yfm518 eGFR 72 ml/min/1.73m2 01/07/2017 Comp Metabolic Mif321 BUN 12 mg/dL 01/07/2017 Comp Metabolic Rvo407 B/C Ratio 15.0 Ratio 01/07/2017 Comp Metabolic Irw218 CALCIUM 9.0 mg/dL 01/07/2017 Comp Metabolic Uif272 ALK PHOS 59 U/L 01/07/2017 Comp Metabolic Euz843 AST(SGOT) 18 U/L 01/07/2017 Comp Metabolic Cao383 ALT(SGPT) 11 U/L 01/07/2017 Comp Metabolic Tnj042 BILI T 0.6 mg/dL 01/07/2017 Comp Metabolic Ypa372 ALBUMIN 3.6 g/dL 01/07/2017 Comp Metabolic Grd145 TPRO 6.7 g/dL 01/07/2017 Comp Metabolic Kcu144 GLOB 3.1 g/dL 01/07/2017 Comp Metabolic Jjo752 A/G Ratio 1.2 Ratio 01/07/2017 Comp Metabolic Vgb554 Osmo 282 mOsmo 01/07/2017 Pt Xnj6512 PT 19.5 seconds 01/07/2017 Pt Jtr8367 INR 1.7 01/07/2017 Pt Oxr6307 Low Intensity - 1.5-2.0 01/07/2017 Pt Sew4928 Mod intensity - 2.0-3.0 01/07/2017 Pt Ior6003 Hi intensity - 3.0-4.0 01/07/2017 Pt Oif9733 PT 22.5 seconds 12/06/2016 Pt Pgp0197 INR 2.1 12/06/2016 Pt Vqt9383 Low Intensity - 1.5-2.0 12/06/2016 Pt Fet6620 Mod intensity - 2.0-3.0 12/06/2016 Pt Leh9588 Hi intensity - 3.0-4.0 12/06/2016 Pt Mji8479 PT 20.8 seconds 10/29/2016 Pt Ekv2470 INR 1.9 10/29/2016 Pt Bpg0465 Low Intensity - 1.5-2.0 10/29/2016 Pt Msx5769 Mod intensity - 2.0-3.0 10/29/2016 Pt Ngs5390 Hi intensity - 3.0-4.0 10/29/2016 Pt Wop8015 PT 21.9 seconds 09/24/2016 Pt Fsr3009 INR 2.0 09/24/2016 Pt Cbs1766 Low Intensity - 1.5-2.0 09/24/2016 Pt Ttl0902 Mod intensity - 2.0-3.0 09/24/2016 Pt Kqv4143 Hi intensity - 3.0-4.0 09/24/2016 Pt Uqt6377 PT 21.0 seconds 09/10/2016 Pt Wkf8385 INR 1.9 09/10/2016 Pt Ejk3032 Low Intensity - 1.5-2.0 09/10/2016 Pt Syp9812 Mod intensity - 2.0-3.0 09/10/2016 Pt Xou6620 Hi intensity - 3.0-4.0 09/10/2016 Pt Mkn9353 PT 22.8 seconds 08/20/2016 Pt Cvk7569 INR 2.1 08/20/2016 Pt Vpp8612 Low Intensity - 1.5-2.0 08/20/2016 Pt Jhl5230 Mod intensity - 2.0-3.0 08/20/2016 Pt Pte1731 Hi intensity - 3.0-4.0 08/20/2016 Pt Ukn0575 PT 19.2 seconds 08/02/2016 Pt Xde1050 INR 1.7 08/02/2016 Pt Dgd7301 Low Intensity - 1.5-2.0 08/02/2016 Pt Jjb9604 Mod intensity - 2.0-3.0 08/02/2016 Pt Sze2150 Hi intensity - 3.0-4.0 08/02/2016 Pt Nix7356 PT 31.2 seconds 07/12/2016 Pt Vff6563 INR 3.2 07/12/2016 Pt Jhm3708 Low Intensity - 1.5-2.0 07/12/2016 Pt Hxo0721 Mod intensity - 2.0-3.0 07/12/2016 Pt Nzj7789 Hi intensity - 3.0-4.0 07/12/2016 Pt Wia8089 PT 20.3 seconds 07/05/2016 Pt Goq5281 INR 1.8 07/05/2016 Pt Row9129 Low Intensity - 1.5-2.0 07/05/2016 Pt Zsz4052 Mod intensity - 2.0-3.0 07/05/2016 Pt Uph0176 Hi intensity - 3.0-4.0 07/05/2016 Pt Ihj1434 PT 22.2 seconds 05/29/2016 Pt Lkv2071 INR 2.1 05/29/2016 Pt Mhd0324 Low Intensity - 1.5-2.0 05/29/2016 Pt Nlm2723 Mod intensity - 2.0-3.0 05/29/2016 Pt Urn9319 Hi intensity - 3.0-4.0 05/29/2016 Tsh Ord6 hTSH II 3.38 uIU/mL 04/25/2016 Comp Metabolic Nfe089 NA 138 mEq/L 04/25/2016 Comp Metabolic Dvj034 K 4.1 mEq/L 04/25/2016 Comp Metabolic Ddh698 CL 105 mEq/L 04/25/2016 Comp Metabolic Dbx507 CO2 25.0 mEq/L 04/25/2016 Comp Metabolic Rmr894 ANION GAP 12 04/25/2016 Comp Metabolic Xix757 GLUCOSE 89 mg/dL 04/25/2016 Comp Metabolic Vnu547 Creat 0.8 mg/dL 04/25/2016 Comp Metabolic Qqn370 eGFR 71 ml/min/1.73m2 04/25/2016 Comp Metabolic Qnz012 BUN 14 mg/dL 04/25/2016 Comp Metabolic Vyn244 B/C Ratio 17.3 Ratio 04/25/2016 Comp Metabolic Fgc225 CALCIUM 9.0 mg/dL 04/25/2016 Comp Metabolic Scs378 ALK PHOS 63 U/L 04/25/2016 Comp Metabolic Ohr106 AST(SGOT) 15 U/L 04/25/2016 Comp Metabolic Pun172 ALT(SGPT) 9 U/L 04/25/2016 Comp Metabolic Evk456 BILI T 0.4 mg/dL 04/25/2016 Comp Metabolic Ksl042 ALBUMIN 3.7 g/dL 04/25/2016 Comp Metabolic Kyn250 TPRO 6.4 g/dL 04/25/2016 Comp Metabolic Wjr744 GLOB 2.7 g/dL 04/25/2016 Comp Metabolic Ert569 A/G Ratio 1.4 Ratio 04/25/2016 Comp Metabolic Gnp399 Osmo 276 mOsmo 04/25/2016 Valproic Acid Bka398 VALPROIC 17.0 ug/ml 04/25/2016 Cbc With Differential [...] 32.5 pg 04/25/2016 Cbc With Differential Ord2 [place]% 12.4 % 04/25/2016 Cbc With Differential Ord2 [...] 1.29 K/ul 04/25/2016 Cbc With Differential Ord2 [place] ABS# 0.6 K/ul 04/25/2016 Cbc With Differential Ord2 Eos ABS# 0.1 K/ul 04/25/2016 Cbc With Differential Ord2 Baso ABS# 0.0 K/ul 04/25/2016 Pt Soy3772 PT 21.9 seconds 04/25/2016 Pt Zhu3064 INR 2.0 04/25/2016 Pt Kfc4130 Low Intensity - 1.5-2.0 04/25/2016 Pt Zit4782 Mod intensity - 2.0-3.0 04/25/2016 Pt Hjy3813 Hi intensity - 3.0-4.0 04/25/2016 Pt Gcj8212 PT 24.4 seconds 03/27/2016 Pt Vse9307 INR 2.3 03/27/2016 Pt Mha8933 Low Intensity - 1.5-2.0 03/27/2016 Pt Mkn8073 Mod intensity - 2.0-3.0 03/27/2016 Pt Vgb8044 Hi intensity - 3.0-4.0 03/27/2016 Pt Nyr5284 PT 22.7 seconds 02/24/2016 Pt Iyp2423 INR 2.1 02/24/2016 Pt Pjg4498 Low Intensity - 1.5-2.0 02/24/2016 Pt Jzs2957 Mod intensity - 2.0-3.0 02/24/2016 Pt Oor4782 Hi intensity - 3.0-4.0 02/24/2016 Pt Got7306 PT 24.2 seconds 02/10/2016 Pt Ozz6744 INR 2.3 02/10/2016 Pt Uwq5098 Low Intensity - 1.5-2.0 02/10/2016 Pt Opa3562 Mod intensity - 2.0-3.0 02/10/2016 Pt Jvw8522 Hi intensity - 3.0-4.0 02/10/2016 Pt Kud0966 PT 15.7 seconds 01/26/2016 Pt Meo7414 INR 1.3 01/26/2016 Pt Pxr0205 Low Intensity - 1.5-2.0 01/26/2016 Pt Wzk1576 Mod intensity - 2.0-3.0 01/26/2016 Pt Tzb0995 Hi intensity - 3.0-4.0 01/26/2016 Pt Sax2206 PT 22.0 seconds 01/02/2016 Pt Rfs5658 INR 2.0 01/02/2016 Pt Ydk9253 Low Intensity - 1.5-2.0 01/02/2016 Pt Zjp9615 Mod intensity - 2.0-3.0 01/02/2016 Pt Ejm8264 Hi intensity - 3.0-4.0 01/02/2016 Pt Arw2634 PT 21.9 seconds 11/30/2015 Pt Iuc1724 INR 2.0 11/30/2015 Pt Foa4872 Low Intensity - 1.5-2.0 11/30/2015 Pt Guk5722 Mod intensity - 2.0-3.0 11/30/2015 Pt Tfv7901 Hi intensity - 3.0-4.0 11/30/2015 Pt Kas3496 PT 20.0 seconds 10/28/2015 Pt Nhl0332 INR 1.8 10/28/2015 Pt Aws8857 Low Intensity - 1.5-2.0 10/28/2015 Pt Bpe8255 Mod intensity - 2.0-3.0 10/28/2015 Pt Leg4599 Hi intensity - 3.0-4.0 10/28/2015 Cbc With [...] 32.2 pg 09/19/2015 Cbc With Differential Ord2 [place]% 11.4 % 09/19/2015 Cbc With Differential Ord2 [...] 0.89 K/ul 09/19/2015 Cbc With Differential Ord2 [place] ABS# 0.6 K/ul 09/19/2015 Cbc With Differential Ord2 Eos ABS# 0.1 K/ul 09/19/2015 Cbc With Differential Ord2 Baso ABS# 0.0 K/ul 09/19/2015 Cbc With Differential Ord2 New Analyzer Notice Please note new ref ranges starting 06-29-2015 due to implemntation of new five part differential hematolgy analyzer. 09/19/2015 Pt Act8082 PT 28.3 seconds 09/19/2015 Pt Brz2177 INR 2.8 09/19/2015 Pt Pub9965 Low Intensity - 1.5-2.0 09/19/2015 Pt Qym8319 Mod intensity - 2.0-3.0 09/19/2015 Pt Qzr3001 Hi intensity - 3.0-4.0 09/19/2015 Pt Wgr6260 PT 22.5 seconds 08/12/2015 Pt Tmh4719 INR 2.1 08/12/2015 Pt Lwc1322 Low Intensity - 1.5-2.0 08/12/2015 Pt Vwi9829 Mod intensity - 2.0-3.0 08/12/2015 Pt Nwx2866 Hi intensity - 3.0-4.0 08/12/2015 Pt Qzp8910 PT 34.1 seconds 07/29/2015 Pt Kbg1660 INR 3.5 07/29/2015 Pt Gnn8263 Low Intensity - 1.5-2.0 07/29/2015 Pt Etp7425 Mod intensity - 2.0-3.0 07/29/2015 Pt Arj1605 Hi intensity - 3.0-4.0 07/29/2015 Tsh Ord6 hTSH II 2.48 uIU/mL 06/29/2015 Pt Zdv9583 PT 14.2 seconds 06/29/2015 Pt Vzl0837 INR 1.1 06/29/2015 Pt Jyx9561 Low Intensity - 1.5-2.0 06/29/2015 Pt Evd3884 Mod intensity - 2.0-3.0 06/29/2015 Pt Spo1898 Hi intensity - 3.0-4.0 06/29/2015 Comp Metabolic Grl296 NA 139 mEq/L 06/29/2015 Comp Metabolic Xhh816 K 3.8 mEq/L 06/29/2015 Comp Metabolic Qcg806 CL 105 mEq/L 06/29/2015 Comp Metabolic Qdp330 CO2 21.0 mEq/L 06/29/2015 Comp Metabolic Fpa820 ANION GAP 17 06/29/2015 Comp Metabolic Lri848 GLUCOSE 78 mg/dL 06/29/2015 Comp Metabolic Qzh915 Creat 0.7 mg/dL 06/29/2015 Comp Metabolic Oga634 eGFR 86 ml/min/1.73m2 06/29/2015 Comp Metabolic Rdx367 BUN 7 mg/dL 06/29/2015 Comp Metabolic Glh810 B/C Ratio 10.1 Ratio 06/29/2015 Comp Metabolic Rxv476 CALCIUM 9.3 mg/dL 06/29/2015 Comp Metabolic Loe063 ALK PHOS 84 U/L 06/29/2015 Comp Metabolic Oyu833 AST(SGOT) 17 U/L 06/29/2015 Comp Metabolic Wnk814 ALT(SGPT) 10 U/L 06/29/2015 Comp Metabolic Mhj315 BILI T 1.0 mg/dL 06/29/2015 Comp Metabolic Ucz291 ALBUMIN 4.1 g/dL 06/29/2015 Comp Metabolic Ixi290 TPRO 7.0 g/dL 06/29/2015 Comp Metabolic Wcz401 GLOB 2.9 g/dL 06/29/2015 Comp Metabolic Ecw820 A/G Ratio 1.4 Ratio 06/29/2015 Comp Metabolic Oyw234 Osmo 274 mOsmo 06/29/2015 CBC With Differential [...] Lipid Ord30 C/HDL 3.5 Ratio 06/29/2015 Pt Ixk0958 PT 25.9 seconds 05/16/2015 Pt Vio9752 INR 2.5 05/16/2015 Pt Ral6763 Low Intensity - 1.5-2.0 05/16/2015 Pt Ahv1300 Mod intensity - 2.0-3.0 05/16/2015 Pt Phy5457 Hi intensity - 3.0-4.0 05/16/2015 Pt Uxh9009 PT 28.2 seconds 04/19/2015 Pt Zut8263 INR 2.7 04/19/2015 Pt Mgm4100 Low Intensity - 1.5-2.0 04/19/2015 Pt Ujs7038 Mod intensity - 2.0-3.0 04/19/2015 Pt Vky9499 Hi intensity - 3.0-4.0 04/19/2015 Pt Ojh7370 PT 29.7 seconds 02/17/2015 Pt Xpg2776 INR 2.9 02/17/2015 Pt Hfc2831 Low Intensity - 1.5-2.0 02/17/2015 Pt Okd9614 Mod intensity - 2.0-3.0 02/17/2015 Pt Hqd2250 Hi intensity - 3.0-4.0 02/17/2015 Cbc With [...] Differential Ord2 RDW 14.5 % 02/07/2015 Pt Bfg1211 PT 26.8 seconds 02/07/2015 Pt Ocy1992 INR 2.6 02/07/2015 Pt Tav1937 Low Intensity - 1.5-2.0 02/07/2015 Pt Ydj0230 Mod intensity - 2.0-3.0 02/07/2015 Pt Rig5082 Hi intensity - 3.0-4.0 02/07/2015 Tsh Ord6 hTSH II 2.36 uIU/mL 02/07/2015 Comp Metabolic Zwe481 NA 136 mEq/L 02/07/2015 Comp Metabolic Qoa328 K 4.2 mEq/L 02/07/2015 Comp Metabolic Ace544 CL 105 mEq/L 02/07/2015 Comp Metabolic Zpv946 CO2 23.0 mEq/L 02/07/2015 Comp Metabolic Rdi978 ANION GAP 12 02/07/2015 Comp Metabolic Cpv632 GLUCOSE 129 mg/dL 02/07/2015 Comp Metabolic Vdm774 Creat 0.9 mg/dL 02/07/2015 Comp Metabolic Abi346 eGFR 67 ml/min/1.73m2 02/07/2015 Comp Metabolic Zoq329 BUN 13 mg/dL 02/07/2015 Comp Metabolic Sqf076 B/C Ratio 15.1 Ratio 02/07/2015 Comp Metabolic Sfr629 CALCIUM 9.3 mg/dL 02/07/2015 Comp Metabolic Awe474 ALK PHOS 79 U/L 02/07/2015 Comp Metabolic Ylz332 AST(SGOT) 16 U/L 02/07/2015 Comp Metabolic Pwh912 ALT(SGPT) 10 U/L 02/07/2015 Comp Metabolic Qrd147 BILI T 0.5 mg/dL 02/07/2015 Comp Metabolic Yls571 ALBUMIN 4.0 g/dL 02/07/2015 Comp Metabolic Mnb930 TPRO 6.9 g/dL 02/07/2015 Comp Metabolic Hri795 GLOB 2.9 g/dL 02/07/2015 Comp Metabolic Svu878 A/G Ratio 1.4 Ratio 02/07/2015 Comp Metabolic Lnd469 Osmo 274 mOsmo 02/07/2015 Pt Vxd5426 PT 27.9 seconds 02/04/2015 Pt Ogp6608 INR 2.7 02/04/2015 Pt Igd1917 Low Intensity - 1.5-2.0 02/04/2015 Pt Ltb7966 Mod intensity - 2.0-3.0 02/04/2015 Pt Anx5533 Hi intensity - 3.0-4.0 02/04/2015 Pt Rms4229 PT 17.2 seconds 01/25/2015 Pt Dvv8472 INR 1.4 01/25/2015 Pt Pve2579 Low Intensity - 1.5-2.0 01/25/2015 Pt Tlh3518 Mod intensity - 2.0-3.0 01/25/2015 Pt Ivm1113 Hi intensity - 3.0-4.0 01/25/2015 Pt Wia0774 PT 20.7 seconds 12/23/2014 Pt Vhg4376 INR 1.8 12/23/2014 Pt Ybr3114 Low Intensity - 1.5-2.0 12/23/2014 Pt Gbm2896 Mod intensity - 2.0-3.0 12/23/2014 Pt Ayt0055 Hi intensity - 3.0-4.0 12/23/2014 PT/MC [id number] PRO TIME 24.9 SEC 08/27/2012 PT/MC 4266024 INR MCMC 2.2 08/27/2012 PT/MC 4688643 PRO TIME 31.1 SEC 05/13/2012 PT/MC 3023110 INR MCMC 3.0 05/13/2012 GFR CALC 0479327 GFR AA >60 ML/MIN 04/30/2012 GFR CALC 8768382 GFR NON-AA >60 ML/MIN 04/30/2012 CHEM 14 20271220 AST 16 U/L 04/30/2012 CHEM 14 20271220 ALT 9 IU/L 04/30/2012 CHEM 14 20271220 BUN 7 MG/DL 04/30/2012 CHEM 14 7666949 ALBUMIN 4.0 GM/DL 04/30/2012 CHEM 14 1552104 CHLORIDE 107 MMOL/L 04/30/2012 CHEM 14 0056412 BILI TOT 0.7 MG/DL 04/30/2012 CHEM 14 8291277 ALK PHOS 68 U/L 04/30/2012 CHEM 14 0024296 SODIUM 142 MMOL/L 04/30/2012 CHEM 14 2370748 CREATININE 0.80 MG/DL 04/30/2012 CHEM 14 5742741 CALCIUM 9.5 MG/DL 04/30/2012 CHEM 14 0551265 POTASSIUM 3.7 MMOL/L 04/30/2012 CHEM 14 7612887 PROT TOT 7.1 GM/DL 04/30/2012 CHEM 14 6265627 GLUCOSE 88 MG/DL 04/30/2012 CHEM 14 1546512 BICARB 27 MMOL/L 04/30/2012 CHEM 14 5603801 ANION GAP 8 MEQ/L 04/30/2012 PT/MC 2435865 PRO TIME 18.5 SEC 04/30/2012 PT/MC 9328261 INR MCMC 1.5 04/30/2012 TSH 9607352 TSH 3.019 uIU/ML 04/30/2012 CBC 8786050 WBC 4.0 10e9/L 04/30/2012 CBC 8697580 RBC 4.94 10e12/L 04/30/2012 CBC 4218265 HGB 15.7 g/dL 04/30/2012 CBC 7202560 HCT DET 47.5 % 04/30/2012 CBC 5694372 MCV 96.2 fL 04/30/2012 CBC 9022267 MCH 31.8 pg 04/30/2012 CBC 5061963 MCHC 33.1 g/dL 04/30/2012 CBC 6386183 PLT 226 10e9/L 04/30/2012 CBC 1389220 MPV 10.9 fL 04/30/2012 CBC 7528394 KOBY % 64.8 % 04/30/2012 CBC 5748023 LY % 22.1 % 04/30/2012 CBC 9806813 MON % 9.5 % 04/30/2012 CBC 0907311 EOS % 3.3 % 04/30/2012 CBC 4782042 BASO % 0.3 % 04/30/2012 CBC 9804193 RDW 13.5 % 04/30/2012 CBC 0934424 ABS KOBY 2.59 10e9/L 04/30/2012 CBC 2492428 ABS LYMPH 0.88 10e9/L 04/30/2012 CBC 9164519 ABS MONO 0.38 10e9/L 04/30/2012 CBC 5310076 ABS EOS 0.13 10e9/L 04/30/2012 CBC 2991852 ABS BASO 0.01 10e9/L 04/30/2012 CBC 7221425 RDW-SD 46.5 fL 04/30/2012 LIPID GRP HDL [...] Procedure Codes Date DESTRUCT PREMALG LESION CPT-4: 38525 11/07/2016 ADMIN INFLUENZA VIRUS VAC CPT-4: G0008 03/25/2015 FLU VACC 4 [place]ANTEL[place] 3 YRS PLUS IM Formatting Model/CDA Sections, Assigned to SNOMED CT: [id number] CPT-4: 60508Lrwnfzq 03/25/2015 ADMIN INFLUENZA VIRUS VAC Assigned to CPT-4: [id number] 04/23/2014 FLU VAC NO PRSV 4 CHANTELLE 3 YRS+ CPT-4: 41130 04/23/2014 TRIAMCINOLONE ACET INJ NOS CPT-4: J3301 05/20/2013 THER/PROPH/DIAG INJ SC/IM CPT-4: 17781 05/20/2013 PRESCRIP TRANSMIT VIA ERX SY CPT-4: G8553 05/20/2013 URINALYSIS NONAUTO W/O SCOPE CPT-4: 72676 04/30/2013 THER/PROPH/DIAG INJ SC/IM CPT-4: 59801 04/16/2013 ROCEPHIN, PER 250 MG CPT-4: J0696 04/16/2013 PRESCRIP TRANSMIT VIA ERX SY CPT-4: G8553 04/16/2013 ADMIN INFLUENZA VIRUS VAC CPT-4: G0008 03/10/2013 FLULAVAL VACC, 3 YRS & >, IM CPT-4: Q2036 03/10/2013 PRESCRIP TRANSMIT VIA ERX SY CPT-4: G8553 12/02/2012 TRIAMCINOLONE ACET INJ NOS CPT-4: J3301 10/08/2012 INJ TRIGGER POINT 1/2 MUSCL CPT-4: 31238 10/08/2012 ROUTINE VENIPUNCTURE CPT-4: 89004 08/27/2012 DRAIN/INJECT JOINT/BURSA CPT-4: 41663 07/09/2012 TRIAMCINOLONE ACET INJ NOS CPT-4: J3301 07/09/2012 ROUTINE VENIPUNCTURE CPT-4: 38890 05/13/2012 ROUTINE VENIPUNCTURE CPT-4: 57885 04/30/2012 PRESCRIP TRANSMIT VIA ERX SY CPT-4: G8553 04/28/2012 Vital Signs Date Vital 08/19/2018 Blood Pressure 1: 104/62 Code : 8480-6 BMI: 23.2 Code : 96407-0 Heart Rate 1 : 64 bpm Height: 5'1" Weight: 123 lbs 02/14/2018 Blood Pressure 1: 130/78 Code : 8480-6 BMI: 24.6 Code : 71028-3 Heart Rate 1 : 64 bpm Height: 5'1" SpO2: 96% Weight: 130 lbs 12/09/2017 BMI: 24.0 Code: 71621-9 Height: 5'1" Weight: 127 lbs 11/14/2017 Blood Pressure 1: 140/74 Code : 8480-6 Heart Rate 1: 78 bpm SpO2: 94% Weight: 127 lbs 08/13/2017 Blood Pressure 1: 120/76 Code : 8480-6 BMI: 24.9 Code : 76243-9 Heart Rate 1 : 76 bpm Height: 5'1" SpO2: 96% Weight: 132 lbs 05/21/2017 Blood Pressure 1: 132/80 Code : 8480-6 BMI: 26.1 Code : 42019-5 Heart Rate 1 : 61 bpm Height: 5'1" SpO2: 92% Weight: 138 lbs 05/07/2017 Blood Pressure 1: 128/70 Code : 8480-6 BMI: 25.9 Code : 12097-5 Heart Rate 1 : 72 bpm Height: 5'1" SpO2: 96% Weight: 137 lbs 01/08/2017 Blood Pressure 1: 136/82 Code : 8480-6 BMI: 25.5 Code : 13733-7 Heart Rate 1 : 75 bpm Height: 5'1" SpO2: 96% Weight: 135 lbs 01/07/2017 Blood Pressure 1: 142/86 Code : 8480-6 BMI: 25.5 Code : 44895-2 Heart Rate 1 : 75 bpm Height: 5'1" SpO2: 95% Weight: 135 lbs 11/07/2016 Blood Pressure 1: 120/80 Code : 8480-6 BMI: 25.5 Code : 86239-3 Heart Rate 1 : 83 bpm Height: 5'1" SpO2: 97% Weight: 135 lbs 07/26/2016 Blood Pressure 1: 140/80 Code : 8480-6 BMI: 27.0 Code : 48622-0 Heart Rate 1 : 68 bpm Height: 5'1" SpO2: 94% Weight: 143 lbs 04/25/2016 Blood Pressure 1: 128/82 Code : 8480-6 BMI: 28.2 Code : 31044-3 Heart Rate 1 : 71 bpm Height: 5'1" SpO2: 98% Weight: 149 lbs 10/04/2015 Blood Pressure 1: 140/80 Code : 8480-6 BMI: 27.8 Code : 25333-3 Heart Rate 1 : 77 bpm Height: 5'1" SpO2: 96% Weight: 147 lbs 06/29/2015 Blood Pressure 1: 134/70 Code : 8480-6 BMI: 26.8 Code : 65531-5 Heart Rate 1 : 68 bpm Height: 5'1" SpO2: 95% Weight: 142 lbs 02/17/2015 Blood Pressure 1: 128/80 Code : 8480-6 Heart Rate 1: 85 bpm Height: 5'1" SpO2: 96% Weight: 02/07/2015 Blood Pressure 1: 130/68 Code : 8480-6 BMI: 28.7 Code : 69976-0 Heart Rate 1 : 80 bpm Height: 5'1" SpO2: 95% Weight: 152 lbs 03/30/2014 Blood Pressure 1: 142/80 Code : 8480-6 BMI: 27.8 Code : 26783-3 Heart Rate 1 : 83 bpm Height: 5'1" SpO2: 95% Weight: 147 lbs 12/24/2013 Blood Pressure 1: 120/80 Code : 8480-6 BMI: 27.8 Code : 15697-8 Heart Rate 1 : 76 bpm Height: 5'1" Weight: 147 lbs 12/01/2013 Blood Pressure 1: 138/82 Code : 8480-6 BMI: 28.0 Code : 03675-0 Heart Rate 1 : 76 bpm Height: 5'1" SpO2: 91% Weight: 148 lbs 11/27/2013 Blood Pressure 1: 140/90 Code : 8480-6 BMI: 28.0 Code : 38709-2 Heart Rate 1 : 76 bpm Height: 5'1" SpO2: 95% Weight: 148 lbs 08/27/2013 Blood Pressure 1: 132/76 Code : 8480-6 BMI: 26.5 Code : 68103-8 Heart Rate 1 : 72 bpm Height: 5'1" Weight: 140 lbs 05/20/2013 Blood Pressure 1: 122/80 Code : 8480-6 BMI: 26.8 Code : 43979-4 Heart Rate 1 : 80 bpm Height: 5'1" SpO2: 98% Temperature: 37.3 (C) / 99.2 (F) Weight: 142 lbs 04/30/2013 Blood Pressure 1: 140/80 Code : 8480-6 BMI: 27.0 Code : 86652-0 Heart Rate 1 : 73 bpm Height: 5'1" SpO2: 93% Temperature: 37.3 (C) / 99.1 (F) Weight: 143 lbs 04/16/2013 Blood Pressure 1: 100/64 Code : 8480-6 BMI: 27.2 Code : 56207-8 Heart Rate 1 : 80 bpm Height: 5'1" SpO2: 97% Temperature: 37.4 (C) / 99.3 (F) Weight: 144 lbs 03/10/2013 Blood Pressure 1: 132/82 Code : 8480-6 BMI: 27.2 Code : 86890-7 Heart Rate 1 : 80 bpm Height: 5'1" Weight: 144 lbs 12/08/2012 Blood Pressure 1: 144/80 Code : 8480-6 Heart Rate 1: 76 bpm Weight: 12/02/2012 Blood Pressure 1: 118/66 Code : 8480-6 BMI: 27.8 Code : 68906-9 Heart Rate 1 : 88 bpm Height: 5'1" Weight: 147 lbs 10/08/2012 Blood Pressure 1: 116/64 Code : 8480-6 BMI: 27.8 Code : 16754-0 Heart Rate 1 : 80 bpm Height: 5'1" Weight: 147 lbs 08/27/2012 Blood Pressure 1: 122/78 Code : 8480-6 BMI: 28.3 Code : 38648-7 Heart Rate 1 : 84 bpm Height: 5'1" Weight: 150 lbs 07/09/2012 Blood Pressure 1: 136/88 Code : 8480-6 Heart Rate 1: 84 bpm Weight: 150 lbs 05/19/2012 Blood Pressure 1: 124/74 Code : 8480-6 Heart Rate 1: 72 bpm Respiratory Rate : 16 bpm Weight: 152 lbs 04/28/2012 Blood Pressure 1: 130/80 Code : 8480-6 BMI: 29.1 Code : 12959-6 Heart Rate 1 : 56 bpm Height: [...] data Encounters Encounter Performer Location Codes Date ([id number]) [id number] EST. 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 PATIENT, LEVEL IV Diagnosis: Essential (primary) hypertension[ICD10: I10] Diagnosis: Urinary tract infection, site not specified[ICD10: N39.0] Diagnosis: Mixed hyperlipidemia[ICD10: E78.2] Sarah Gillis MD, [facility] CPT-4: 82031 01/08/2017 26921 EST. PATIENT, LEVEL III Diagnosis: Dysuria[ICD10: R30.0] Diagnosis: Other nursing home (current) drug therapy[ICD10: Z79.899] Diagnosis: Unspecified dementia with behavioral disturbance[ICD10: F03.91] Mary Gillis MD, [facility] CPT-4: 09067 01/07/2017 ([id number]) 65651 EST. PATIENT, LEVEL IV Diagnosis: Essential (primary) hypertension[ICD10: I10] Diagnosis: Mixed hyperlipidemia[ICD10: E78.2] Diagnosis: Actinic keratosis[ICD10: L57.0] Sarah Gillis MD, [facility] CPT- 4: 66911 11/07/2016 ([id number]) 99929 EST. PATIENT, LEVEL IV Diagnosis: Essential (primary) hypertension[ICD10: I10] Diagnosis: Mixed hyperlipidemia[ICD10: E78.2] Sarah Gillis MD, [facility] CPT-4: 87229 07/26/2016 ([id number]) 16263 EST. PATIENT, LEVEL IV Diagnosis: Essential (primary) hypertension[ICD10: I10] Diagnosis: Other nursing home (current) drug therapy[ICD10: Z79.899] Diagnosis: Encounter for therapeutic drug level monitoring[ICD10: Z51.81] Sarah Gillis MD, [facility] CPT-4: 78192 04/25/2016 ([id number]) 15516 EST. PATIENT, LEVEL IV Diagnosis: Essential (primary) hypertension[ICD10: I10] Diagnosis: Cervicalgia[ICD10: M54.2] Diagnosis: Cervical disc disorder, unspecified, unspecified cervical region[ ICD10: M50.90] Sarah Gillis MD, [facility] CPT-4: 97323 10/04/2015 ([id number]) 43930 EST. PATIENT, LEVEL IV Diagnosis: Encounter for therapeutic drug level monitoring[ICD10: Z51.81] Diagnosis: Mixed hyperlipidemia[ICD10: E78.2] Diagnosis: Essential (primary) hypertension[ICD10: I10] Diagnosis: Localized edema[ICD10: R60.0] Sarah Gillis MD, [facility] CPT- 4: 60186 06/29/2015 ([id number]) 48973 EST. 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 PATIENT, LEVEL IV Diagnosis: ESSENTIAL HYPERTENSION[ICD9: 401.9] Diagnosis: Osteoarthritis[ICD9: 715.90] Diagnosis: EDEMA[ICD9: 782.3] Diagnosis: ENCNTR LONG-ANTICOAG USE[ICD9: V58.61] Diagnosis: Left hip pain[ICD9: 719.45] Katy Gillis MD, [facility] CPT-4: 60021 02/07/2015 ([id number]) 10476 EST. PATIENT, LEVEL IV Diagnosis: ESSENTIAL HYPERTENSION[ICD9: 401.9] Diagnosis: Osteoarthritis[ICD9: 715.90] Diagnosis: Hip pain[ICD9: 719.45] Sarah Gillis MD, [facility] CPT-4: 00169 03/30/2014 ([id number]) 30418 EST. PATIENT, LEVEL III Diagnosis: ESSENTIAL HYPERTENSION[ICD9: 401.9] Diagnosis: Anticoagulant long-term use[ICD9: V58.61] Diagnosis: SCIATICA[ICD9: 724.3] Sarah Gillis MD, [facility] CPT-4: 16235 12/24/2013 ([id number]) 97299 EST. PATIENT, LEVEL III Diagnosis: Sacroiliitis[ICD9: 720.2] Diagnosis: SCIATICA[ICD9: 724.3] Sarah Gillis MD, [facility] CPT-4: 53871 12/01/2013 ([id number]) 40784 EST. PATIENT, LEVEL III Diagnosis: EDEMA[ICD9: 782.3] Diagnosis: LONG-TERM USE ANTICOAGUL[ICD9: V58.61] Sarah Gillis MD [facility] CPT-4: 47580 11/27/2013 ([id number]) 30586 EST. PATIENT, LEVEL III Diagnosis: ESSENTIAL HYPERTENSION[SNOMED: 64523156] CARLY Edwards MD CPT-4: 14798 08/27/2013 ([id number]) 68767 EST. PATIENT, LEVEL III Diagnosis: Acute bronchitis[ICD9: 466.0] Diagnosis: COUGH[ICD9: 786.2] CARLY Edwards MD CPT-4: 25431 05/20/2013 ([id number]) 23097 EST. PATIENT, LEVEL III Diagnosis: ACUTE BRONCHITIS[ICD9: 466.0] Diagnosis: Memory loss[ICD9: 780.93] CARLY Edwards MD CPT-4: 51082 04/30/2013 ([id number]) 04687 EST. PATIENT, LEVEL III Diagnosis: ACUTE BRONCHITIS[ICD9: 466.0] Diagnosis: Cough[ICD9: 786.2] Sarah Gillis MD [facility] CPT-4: 55762 04/16/2013 ([id number]) 84939 EST. PATIENT, LEVEL III Diagnosis: ESSENTIAL HYPERTENSION[SNOMED: 44154221] Sarah Gillis MD [facility] CPT-4: 43563 03/10/2013 ([id number]) Miscellaneous no charge Diagnosis: BLISTER FOOT/TOE[ICD9: 917.2] Sarah Gillis MD [facility] CPT- 4: 67461 12/08/2012 ([id number]) 68680 EST. PATIENT, LEVEL III Diagnosis: BLISTER FOOT/TOE[ICD9: 917.2] Diagnosis: CELLULITIS OF FOOT[ICD9: 682.7] Diagnosis: Osteoarthritis[ICD9: 715.90] CARLY Edwards MD CPT- 4: 83360 12/02/2012 ([id number]) 24905 EST. PATIENT, LEVEL III Diagnosis: ESSENTIAL HYPERTENSION[SNOMED: 16773257] Sarah Gillis MD [facility] CPT-4: 56751 10/08/2012 ([id number]) 04198 EST. PATIENT, LEVEL III Diagnosis: Bruising[ICD9: 924.9] Diagnosis: ENCNTR LONG-ANTICOAG USE[ICD9: V58.61] [facility] CPT-4: 41252 08/27/2012 ([id number]) 99073 EST. PATIENT, LEVEL III Diagnosis: ESSENTIAL HYPERTENSION[SNOMED: 04323473] Diagnosis: Sacroiliitis[ICD9: 720.2] [facility] CPT-4: 71991 07/09/2012 ([id number] 28869 EST. 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 08/19/2018 Appointment: Katy Shore WPtel: [address] [place], [place] [id number] [place] (15 min) Moderate 08/19/2018 Patient Education: Patient Medication Summary Completed 08/19/2018 Appointment: Katy Shore WPtel: [address] [place], [place] [phone] (15 min) Moderate 05/06/2018 Visit Plan: Hypertension [...] are not interested in this. 02/14/2018 Appointment: Katy Shore WPtel: [address] [place] [phone] (15 min) Moderate 02/14/2018 Patient Education: Patient [...] effectiveness. 11/14/2017 [phone] ([facility] min) Complex 11/14/2017 Patient Education: Patient [...] effectiveness. 08/13/2017 Appointment: Mary Gonzalez WPtel: [phone] [facility] (30 min) Complex 08/13/2017 Patient [...] effectiveness. 05/21/2017 [facility]ment[phone] ([facility] min) Complex 05/21/2017 Patient Education: Patient [...] effectiveness. 05/07/2017 Appointment: Mary Gonzalez WPtel: [phone] [facility] (30 min) Complex 05/07/2017 Patient Education: Patient Medication Summary Completed 05/07/2017 Appointment: Sarah Gillis WPtel: [phone] [facility] (15 min) Moderate 02/05/2017 Visit Plan: Hypertension [...] weeks 01/08/2017 [phone] ([facility] min) Moderate 01/08/2017 Patient Education: [...] effectiveness. 01/07/2017 Appointment: Mary Gonzalez WPtel: [phone] [facility] (10 min) Simple 01/07/2017 Patient [...] to medications. 11/07/2016 Appointment: Sarah Gillis WPtel: [phone] [facility] (15 min) Moderate 11/07/2016 Patient Education: Patient Medication Summary Completed 11/07/2016 Appointment: Sarah Gillis WPtel: [phone] [facility] (15 min) Moderate 10/24/2016 Visit Plan: Hypertension [...] to medications. 07/26/2016 Appointment: Sarah Gillis WPtel: [phone] [facility] (15 min) Moderate 07/26/2016 Patient Education: Patient [...] care. 04/25/2016 Appointment: Sarah Gillis WPtel: [phone] [facility] (15 min) Moderate 04/25/2016 Patient Education: Patient Medication Summary Completed 04/25/2016 Appointment: Sarah Gillis WPtel: [phone] [facility] (30 min) Complex 04/03/2016 Visit Plan: Hypertension [...] Summary Completed 10/04/2015 Appointment: Sarah Gillis WPtel: [phone] [facility] (30 min) Complex 09/28/2015 Patient Education: Patient [...] symptoms. 06/29/2015 [facility]ment: [phone] ([facility]) Complex 06/29/2015 Patient Education: [...] Completed 02/07/2015 [facility]ment[phone] Follow up 06/28/2014 Appointment: Injection 04/23/2014 [...] DAILY. 03/30/2014 [facility]ment: [phone] Follow [facility] 03/30/2014 Patient Education: Patient [...] at home. 12/24/2013 App[facility]ment: [phone] Follow up 12/24/2013 Patient Education: Patient [...] and 3.5. 11/27/2013 [facility]ment: [phone] Other 11/27/2013 Patient Education: Patient Medication Summary Completed 11/27/2013 Visit Plan: Hypertension - well controlled - continue with current medications, continue with no added salt diet. Pt has been encouraged to exercise daily. The pt has been advised to call the office if there are any acute concerns about change in blood pressure readings at home. 08/27/2013 Appointment: [phone] Follow up 08/27/2013 Patient Education: Patient [...] of inflammation 05/20/2013 Appointment: Sarah Gillis WPtel: [facility]5 [facility] Sick 05/20/2013 Patient Education: Patient Medication Summary [...] blood pressure readings at home. 03/10/2013 Appointment: Sarah Gillis WPtel: [facility]5 [facility] Follow up 03/10/2013 Patient Education: Patient Medication Summary Completed 03/10/2013 Patient Education: Hypertension Completed 03/10/2013 Appointment: Sarah Gillis WPtel: [facility] [place] Follow up 12/17/2012 Visit Plan: Wound care to lesion -neosporin, call if worsening symptoms - finish antibotics 12/08/2012 Appointment: Sarah Gillis WPtel: [address] [place], [place] [id number] Other 12/08/2012 Patient Education: Patient Medication Summary [...] pain symptoms. 12/02/2012 Appointment: Sarah Gillis WPtel: [address] [place], [place] [id number] Follow up 12/02/2012 Patient Education: Patient Medication [...] injection today. 10/08/2012 Appointment: Sarah Gillis WPtel: [address] [place], [place] [phone] Follow up 10/08/2012 Patient Education: Patient Medication Summary Completed 10/08/2012 Patient Education: Hypertension Completed 10/08/2012 Visit Plan: Abnormal bruising-nursing home coumadin therapy- plan to check PT/INR today in the office and continue to monitor symptoms- instructed patient to call if bleeding/bruising continues or if she becomes weak , dizzy, light headed, etc. Patient and verbalized understanding of plan. 08/27/2012 Appointment: Katy Shore WPtel: [address] [place] [phone] Other 08/27/2012 Patient Education: Patient Medication Summary Completed 08/27/2012 Appointment: Sarah Gillis WPtel: [address] [place], [place] [phone] Follow up 07/14/2012 Visit Plan: Hypertension - [...] they worsen. 07/09/2012 Appointment: Sarah Gillis WPtel: [facility]5 [facility] Other 07/09/2012 Patient Education: Patient Medication Summary [...] times daily. 05/19/2012 Appointment: Sarah Gillis WPtel: [address] [place], [place] [phone] Follow up 05/19/2012 Patient Education: Hypertension Completed 05/19/2012 Patient Education: Patient Medication Summary Completed 05/19/2012 Appointment: Sarah Gillis WPtel: [facility]5 [facility] Lab Draw 05/13/2012 Patient Education: Patient Medication [...] pain symptoms. 04/28/2012 Appointment: Sarah Gillis WPtel: [phone] [facility] New Patient 04/28/2012 Patient Education: Patient Medication Summary Completed 04/28/2012 Patient Education: High Blood Pressure: Essential Hypertension Completed 2011 Appointment: [phone] [facility] [place]/ New Patient 10/15/2011 Instructions Comment . Bronchitis - acute case of bronchitis [...] changes. Continue with current plan of treatment. GET TIGER BALM FOR YOUR HIP AND [...] INR is between 2.0 and 3.5. . Edema - pt has been advised [...] closely monitor the medications for effectiveness. . UTI - pt with positive urinalysis [...] to closely monitor the medications for effectiveness. the coumadin 4mg is Saturday/Saturday/Saturday/Saturday the coumadin [...] symptoms. start on depakote 125mg at hs . Bronchitis - Pt has been diagnosed [...] behind left ear -re-eval in 3 weeks . Hypertension - well controlled - continue [...] change in blood pressure readings at home. the coumadin 4mg is Saturday/Saturday/Saturday/Saturday the coumadin [...] want medication - will monitor symptoms. . Hypertension - well controlled - [...] do not improve or if they worsen. . Bronchitis - acute case of bronchitis identified. Pt has been given antibiotics, breathing treatments as appropriate, and pt has been instructed to call if symptoms are not improved, or if symptoms acutely worsen. cough - pt to continue with otc robitussin - shot of kenalog today for persistent symptoms of inflammation . Wound care to lesion -neosporin, call if worsening symptoms - finish antibotics . Hypertension - well controlled - continue with current medications, continue with no added salt diet. Pt has been encouraged to exercise daily. The pt has been advised to call the office if there are any acute concerns about change in blood pressure readings at home. 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 . Hypertension - well controlled - continue [...] level. Arthritis - continue with supportive care. . Hypertension - well controlled - continue with current medications, continue with no added salt diet. Pt has been encouraged to exercise daily. The pt has been advised to call the office if there are any acute concerns about change in blood pressure readings at home. . Edema - pt has been advised [...] assure normal liver response to medications. . HIP and SI joint pain - [...] change in blood pressure readings at home. Hip pain - pt to use VOLTAREN [...] Use tylenol for break through pain symptoms. CHANGE DRESSING ON SATURDAY AND RETURN TO [...] declines but will call if pain worsens Check INR today-we'll call you with the results tomorrow. Keep your regular follow up appointment in September. Call with any questions or concerns. . 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 Patient and verbalized understanding of plan. . Hypertension - well controlled - continue [...] do not improve or if they worsen. . Hypertension - well controlled - continue [...]
--- OUTSIDE RECORDS SUMMARY | 2018-08-26 10:32 | XMS REPORT | CCD ---
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 Name Role Phone PP Unavailable CCM Unavailable Summary Purpose Interface Exchange Insurance Providers Payer name Policy type / Coverage type Covered libertarian ID Effective Begin Date Effective End Date WPS Medicare Part B Medicare Part B [id number] 2013 Unknown [facility] Medicare Part B [id number] 2013 Unknown Family history Brother Diagnosis Age [...] 2 1 in 2010, 1 lives in [place] 11/07/2016 Marital status Unknown 04/28/2012 Employment Unknown Retired 04/28/[address]: 5797711 Quit over 10 years ago 04/28/[address]: 387634133 Never drinks alcohol 04/28/2012 Allergies, Adverse Reactions, Alerts Substance Reaction Codes Entered Date Inactivated Date Status Dust Unknown 04/28/2012 No Inactive Date Active * NO KNOWN FOOD ALLERGIES Unknown 04/28/2012 No Inactive Date Active CODEINE drowsiness RxNorm: 2670 04/16/2013 No Inactive Date Active Past Medical History Illness Codes Condition Status Onset Date Resolved Date Dementia in other diseases classified elsewhere without behavioral disturbance ICD-9: 294.10 ICD-10: F02.80 Active 05/21/2017 Unknown Encounter for therapeutic drug level monitoring ICD-9: V58.61 ICD-10: Z51.81 Active 12/24/2013 Unknown Essential (primary) hypertension ICD-9: 401.1 ICD-10: I10 Active 04/24/2016 Unknown Pain in left hip ICD-9 : 719.45 ICD-10: M25.552 Active 05/21/2017 Unknown Unspecified dementia with behavioral disturbance ICD-9: 294.21 ICD-10: F03.91 Active 01/07/2017 Unknown Unsteadiness on feet ICD-9: 781.2 ICD-10: R26.81 Active 02/14/2018 Unknown Vitamin D deficiency, unspecified ICD-9: 268.9 ICD-10: E55.9 Active 02/14/2018 Unknown Abnormal weight loss ICD-9: 783.21 ICD-10: R63.4 Active 12/09/2017 Unknown Localized edema ICD-9 : 782.3 ICD-10: [...] 788.1 ICD-10: R30.0 Active 01/07/2017 Unknown Other long-term (current) drug therapy ICD-9: V58.69 ICD-10: Z79.899 [...] Problems Condition Codes Effective Dates Condition Status Dementia in other diseases classified elsewhere without behavioral disturbance ICD-9: 294.10 ICD-10: F02.80 05/21/2017 Active Encounter for therapeutic drug level monitoring ICD-9: V58.61 ICD-10: Z51.81 12/24/2013 Active Essential (primary) hypertension ICD-9: 401.1 ICD-10: I10 04/24/2016 Active Pain in left hip ICD-9 : 719.45 ICD-10: M25.552 05/21/2017 Active Unspecified dementia with behavioral disturbance ICD-9: 294.21 ICD-10: F03.91 01/07/2017 Active Unsteadiness on feet ICD-9: 781.2 ICD-10: R26.81 02/14/2018 Active Vitamin D deficiency, unspecified ICD-9: 268.9 ICD-10: E55.9 02/14/2018 Active Abnormal weight loss ICD-9: 783.21 ICD-10: R63.4 12/09/2017 Active Localized edema ICD-9 : 782.3 ICD-10: R60.0 11/27/2013 Active Gastro-esophageal reflux disease without esophagitis ICD-9: 530.81 ICD-10: K21.9 05/07/2017 Active Essential (primary) hypertension ICD-9: 401.9 ICD-10: I10 12/24/2013 Active Mixed hyperlipidemia ICD-9: 272.2 ICD-10: E78.2 01/08/2017 Active Urinary tract infection, site not specified ICD-9: 599.0 ICD-10: N39.0 01/08/2017 Active Dysuria ICD-9: 788.1 ICD-10: R30.0 01/07/2017 Active Other roasterman (current) drug therapy ICD-9: V58.69 ICD-10: Z79.899 [...] Instructions Vitamin D3 5,000 unit tablet RxNorm: 551041 1 Tablet(s) PO daily 08/18/2018 02/13/2019 Active may give OTC bottle Coumadin 5 mg tablet RxNorm: 518883 1 Tablet(s) PO daily except 1/2 Tab on Sat, Sat07/21/2018 01/18/2019 Active hydrochlorothiazide 12.5 mg tablet RxNorm: 332146 1 Tablet(s) PO daily 07/11/2018 02/05/2019 Active Depakote 125 mg tablet,delayed release RxNorm: 9969114 Tablet(s) Tablet(s) 1 Tablet(s) PO QPM 05/16/2018 12/11/2018 Active PLEASE SEND REFILL REQUESTS ELECTRONICALLY pravastatin 40 mg tablet RxNorm: 619561 TAKE ONE TABLET BY MOUTH EVERY DAY 03/17/2018 02/09/2019 Active Generic For:*PRAVACHOL 40 MG TABLET 03/17/2018 8:03:02 AM amlodipine 5 mg tablet RxNorm: 347775 TAKE ONE (1) TABLET BY MOUTH DAILY 02/18/2018 02/12/2019 Active Generic For:NORVASC 5 MG TABLET 02/18/2018 10:12:27 AM Vitamin D3 5,000 unit tablet RxNorm: 998232 1 Tablet(s) PO daily 02/14/2018 02/13/2018 Inactive Vitamin D2 50,000 unit capsule RxNorm: 7209718 1 Capsule(s) PO QW 02/14/2018 02/13/2018 Inactive Vitamin D3 5,000 unit tablet RxNorm: 445907 1 Tablet(s) PO daily 02/14/2018 08/12/2018 Inactive may give OTC bottle Vitamin D2 50,000 unit capsule RxNorm: 7300379 1 Capsule(s) PO QW x8 weeks then stop 02/14/2018 04/14/2018 Inactive amlodipine 5 mg tablet RxNorm: 157275 1 Tablet(s) PO daily 02/17/2018 Inactive Generic For:NORVASC 5 MG TABLET REFILL REQUEST 08/27/2016 10:47:17 AM Coumadin 5 mg tablet RxNorm: 484784 1 Tablet(s) PO daily except 1/2 Tab on Wed, Sat12/16/2017 06/15/2018 Inactive hydrochlorothiazide 12.5 mg tablet RxNorm: 036724 1 Tablet(s) PO daily 12/16/2017 07/10/2018 Inactive hydrochlorothiazide 12.5 mg tablet RxNorm: 210786 Tablet(s) Tablet(s) 1 Tablet(s) PO daily 11/18/2017 12/15/2017 Inactive PLEASE SEND REFILL REQUESTS ELECTRONICALLY Depakote 125 mg tablet,delayed release RxNorm: 4105551 Tablet(s) Tablet(s) 1 Tablet(s) PO QPM 10/17/2017 05/14/2018 Inactive PLEASE SEND REFILL REQUESTS ELECTRONICALLY hydrochlorothiazide 12.5 mg tablet RxNorm: 580293 Tablet(s) Tablet(s) 1 Tablet(s) PO daily 10/17/2017 11/17/2017 Inactive PLEASE SEND REFILL REQUESTS ELECTRONICALLY Coumadin 5 mg tablet RxNorm: 764772 1 Tablet(s) daily TAKE 1 TABLET BY MOUTH DAILY 08/15/2017 12/15/2017 Inactive Coumadin 5 mg tablet RxNorm: 192106 Tablet(s) TAKE 1 TABLET BY MOUTH DAILY 06/24/2017 08/14/2017 Inactive pravastatin 40 mg tablet RxNorm: 913396 Tablet(s) TAKE ONE TABLET BY MOUTH EVERY DAY 05/27/2017 03/16/2018 Inactive Voltaren 1 % topical gel RxNorm: 973276 4 Gram(s) TOP QID 05/2106/19/2017 Inactive Depakote 125 mg tablet,delayed release RxNorm: 4319565 Tablet(s) 1 Tablet(s) PO QPM 04/22/2017 10/16/2017 Inactive hydrochlorothiazide 12.5 mg tablet RxNorm: 820382 Tablet(s) 1 Tablet(s) PO daily 03/22/2017 10/16/2017 Inactive amlodipine 5 mg tablet RxNorm: 693112 1 Tablet(s) PO daily 02/12/2018 Inactive Generic For:NORVASC 5 MG TABLET REFILL REQUEST 08/27/2016 10:47:17 AM cephalexin 500 mg tablet RxNorm: 684480 1 Tablet(s) PO TID 01/17/2017 Inactive cephalexin 500 mg tablet RxNorm: 801513 1 Tablet(s) PO TID 01/07/2017 Inactive Coumadin 5 mg tablet RxNorm: 582568 TAKE 1 TABLET BY MOUTH DAILY EXCEPT 1/2 TABLET ON SATURDAY AND Saturday12/26/2016 06/23/2017 Inactive Generic For:COUMADIN 5MG TAB 12/26/2016 9:17:49 AM N O T I C E Last quantity doesn't match original quantity Depakote 125 mg tablet,delayed release RxNorm: 8753059 Tablet(s) 1 Tablet(s) PO QPM 10/25/2016 04/21/2017 Inactive Coumadin 5 mg tablet RxNorm: 506245 TAKE 1 TABLET BY MOUTH DAILY EXCEPT 1/2 TABLET ON SATURDAY AND Saturday09/27/2016 12/25/2016 Inactive Generic For:COUMADIN 5MG TAB N O T I C E Last quantity doesn't match original quantity REFILL REQUEST 09/27/2016 9:43:11 AM Coumadin 4 mg tablet RxNorm: 562025 Tablet(s) as doctor directed TAKE 1 TABLET 4 days per week 09/27/2016 04/24/2017 Inactive Generic For:COUMADIN 4MG TAB amlodipine 5 mg tablet RxNorm: 596549 TAKE 1 TABLET BY MOUTH DAILY 08/27/2016 09/26/2016 Inactive Generic For:NORVASC 5 MG TABLET REFILL REQUEST 08/27/2016 10:47: 17 AM hydrochlorothiazide 12.5 mg tablet RxNorm: 924354 Tablet(s) 1 Tablet(s) PO daily 08/27/2016 03/21/2017 Inactive pravastatin 40 mg tablet RxNorm: 827383 Tablet(s) TAKE ONE TABLET BY MOUTH EVERY DAY 06/29/2016 05/24/2017 Inactive Coumadin 5 mg tablet RxNorm: 851905 1 Tablet(s) PO daily except 1/2 tab on Tu, 06/14/2016 09/26/2016 Inactive Coumadin 5 mg tablet RxNorm: 909195 1 Tablet(s) PO daily except 1/2 tab on Tues, Sat 06/12/2016 12/08/2016 Inactive Depakote 125 mg tablet,delayed release RxNorm: 3899222 1 Tablet(s) PO QPM 04/30/2016 10/24/2016 Inactive amlodipine 5 mg tablet RxNorm: 591110 Tablet(s) TAKE ONE TABLET BY MOUTH EVERY DAY 03/06/2016 08/26/2016 Inactive Generic For:NORVASC 5 MG TABLET 2015 9:02 :57 AM N O T I C E Last quantity doesn't match original quantity hydrochlorothiazide 12.5 mg tablet RxNorm: 445010 1 Tablet(s) PO daily 02/01/2016 08/26/2016 Inactive Coumadin 5 mg tablet RxNorm: 077559 1 Tablet(s) PO daily except 1/2 tab on , [facility] 12/26/2015 06/11/2016 Inactive Coumadin 5 mg tablet RxNorm: 631421 TAKE 1 TABLET BY MOUTH 3 DAYS PER WEEK (COUNT INCLUDES THE [facility], [facility]) 11/10/2015 12/25/2015 Inactive Generic For:COUMADIN 5MG TAB PT SAYS TAKING DIFFERENT NOW...WE NEED NEW RX PLEASE Coumadin 5 mg tablet RxNorm: 061493 Tablet(s) TAKE 1 TABLET BY MOUTH 5 DAYS PER WEEK [place] Sat11/04/201511/08 Inactive Generic For:COUMADIN 5MG TAB 10/04/2015 10:19:46 AM Depakote 125 mg tablet,delayed release RxNorm: 9846961 1 Tablet(s) PO QPM 11/04/2015 04/29/2016 Inactive Coumadin 5 mg tablet RxNorm: 217449 TAKE 1 TABLET BY MOUTH 3 DAYS PER WEEK (COUNT INCLUDES THE [facility], [facility]) 10/04/2015 11/03/2015 Inactive Generic For:COUMADIN 5MG TAB 10/04/2015 10:19:46 AM amlodipine 5 mg tablet RxNorm: 454404 Tablet(s) TAKE ONE TABLET BY MOUTH EVERY DAY 09/12/2015 03/05/2016 Inactive Generic For:NORVASC 5 MG TABLET 2015 9:02 :57 AM N O T I C E Last quantity doesn't match original quantity Coumadin 5 mg tablet RxNorm: 095885 1 Tablet(s) daily 201510/03/2015 Inactive Voltaren 1 % topical gel RxNorm: 722990 4 Gram(s) TOP QID 06/2904/24/2016 Inactive Depakote 125 mg tablet,delayed release RxNorm: 5660479 1 Tablet(s) PO QPM 06/29/2015 10/26/2015 Inactive hydrochlorothiazide 12.5 mg tablet RxNorm: 504280 1 Tablet(s) PO daily 06/29/2015 01/24/2016 Inactive Depakote 125 mg tablet,delayed release RxNorm: 3877346 1 Tablet(s) PO QPM 06/29/2015 06/28/2015 Inactive pravastatin 40 mg tablet RxNorm: 328356 Tablet(s) TAKE ONE TABLET BY MOUTH EVERY DAY 06/29/2015 06/28/2016 Inactive Generic For:*PRAVACHOL 40 MG TABLET Coumadin 5 mg tablet RxNorm: 899410 1 Tablet(s) PO TUE, THUR, SAT 3 days per week 05/09/2015 06/30/2015 Inactive take 4mg on sun sat amlodipine 5 mg tablet RxNorm: 121090 TAKE ONE TABLET BY MOUTH EVERY DAY 2015 09/06/2015 Inactive Generic For:NORVASC 5 MG TABLET 2015 9:02:57 AM N O T I C E Last quantity doesn't match original quantity Coumadin 5 mg tablet RxNorm: 485200 1 Tablet(s) PO TUE, THUR, SAT 3 days per week 11/15/2014 05/08/2015 Inactive take 4mg on sun sat Coumadin 4 mg tablet RxNorm: 544261 Tablet(s) as doctor directed TAKE 1 TABLET 4 days per week 11/15/2014 06/12/2015 Inactive Generic For:COUMADIN 4MG TAB Coumadin 5 mg tablet RxNorm: 369057 1 Tablet(s) PO TUE, THUR, SAT 10/27/2014 11/14/2014 Inactive TAKE 4MG ON SUN Sat [SAVINGS FOR NON-COVERED DRUGS -- BIN: [id number], PCN: ASPROD1, Group: XXXXX, ID# [id number], Questions: . THIS IS NOT INSURANCE.] Coumadin 5 mg tablet RxNorm: 621184 1 Tablet(s) PO TUE, THUR, SAT 10/27/2014 10/26/2014 Inactive amlodipine 5 mg tablet RxNorm: 030970 1 Tablet(s) PO daily 03/10/2015 Inactive Generic For:NORVASC 5 MG TABLET Generic For:NORVASC 5 MG TABLET 2012 8:54:53 AM pravastatin 40 mg tablet RxNorm: 872285 TAKE ONE TABLET BY MOUTH EVERY DAY 08/12/2014 06/28/2015 Inactive Generic For:*PRAVACHOL 40 MG TABLET Coumadin 4 mg tablet RxNorm: 429391 TAKE 1 TABLET BY MOUTH DAILY 08/12/2014 11/14/2014 Inactive Generic For:COUMADIN 4MG TAB pravastatin 40 mg tablet RxNorm: 253246 1 Tablet(s) PO daily TAKE ONE TABLET BY MOUTH EVERY DAY 08/11/2014 08/11/2014 Inactive Generic For:*PRAVACHOL 40 MG TABLET Generic For:*PRAVACHOL 40 MG TABLET Coumadin 4 mg tablet RxNorm: 173273 Tablet(s) PO TAKE ONE TABLET BY MOUTH EVERY DAY 08/11/2014 08/11/2014 Inactive Generic For:COUMADIN 4MG TAB Generic For: COUMADIN 4MG TAB [SAVINGS FOR NON-COVERED DRUGS -- BIN:[id number], PCN: ASPROD1, Group: XXXXX, ID# [id number], Questions: . THIS IS NOT INSURANCE.] amlodipine 5 mg tablet RxNorm: 121344 1 Tablet(s) daily 1 Tablet(s) PO daily TAKE ONE (1) TABLET BY MOUTH DAILY 05/12/2014 09/13/2014 Inactive Generic For:NORVASC 5 MG TABLET Generic For:NORVASC 5 MG TABLET 05/18/2013 8:54:53 AM amlodipine 5 mg tablet RxNorm: 116415 1 Tablet(s) PO daily TAKE ONE (1) TABLET BY MOUTH DAILY 01/14/2014 05/11/2014 Inactive Generic For:NORVASC 5 MG TABLET Generic For:NORVASC 5 MG TABLET 05/18/2013 8:54:53 AM Coumadin 4 mg tablet RxNorm: 698978 TAKE 1 TABLET BY MOUTH DAILY 01/14/2014 08/11/2014 Inactive Generic For:COUMADIN 4MG TAB amlodipine 5 mg tablet RxNorm: 214663 1 Tablet(s) PO daily TAKE ONE (1) TABLET BY MOUTH DAILY 01/14/2014 01/08/2015 Inactive Generic For:NORVASC 5 MG TABLET Generic For:NORVASC 5 MG TABLET 05/18/2013 8:54:53 AM amlodipine 5 mg tablet RxNorm: 000141 1 Tablet(s) PO daily TAKE ONE (1) TABLET BY MOUTH DAILY 09/18/2013 01/13/2014 Inactive Generic For:NORVASC 5 MG TABLET Generic For:NORVASC 5 MG TABLET 05/18/2013 8:54:53 AM Coumadin 4 mg tablet RxNorm: 050017 4mg daily Tablet(s) PO daily 07/30/2013 01/13/2014 Inactive Generic For:COUMADIN 4MG TAB pravastatin 40 mg tablet RxNorm: 152227 Tablet(s) PO TAKE ONE TABLET BY MOUTH EVERY DAY 07/20/2013 08/10/2014 Inactive Generic For:*PRAVACHOL 40 MG TABLET Generic For:*PRAVACHOL 40 MG TABLET Kenalog 40 mg/mL suspension for injection RxNorm: 9820832 Milliliter(s) Inj 05/20/2013 05/20/2013 Inactive azithromycin 500 mg tablet RxNorm: 5193084 1 Tablet(s) PO daily 05/20/2013 05/24/2013 Inactive amlodipine 5 mg tablet RxNorm: 664296 Tablet(s) PO TAKE ONE (1) TABLET BY MOUTH DAILY 05/18/2013 05/17/2013 Inactive Generic For:NORVASC 5 MG TABLET Generic For: NORVASC 5 MG TABLET 05/18/2013 8:54:53 AM amlodipine 5 mg tablet RxNorm: 905875 1 Tablet(s) PO daily TAKE ONE (1) TABLET BY MOUTH DAILY 05/18/2013 09/17/2013 Inactive Generic For:NORVASC 5 MG TABLET Generic For:NORVASC 5 MG TABLET 05/18/2013 8:54:53 AM Coumadin 4 mg tablet RxNorm: 707089 2mg wed 4 mg other Tablet(s) PO daily 04/28/2013 07/29/2013 Inactive Generic For:COUMADIN 4MG TAB Coumadin 4 mg tablet RxNorm: 968290 4mg daily Tablet(s) PO daily 04/16/2013 04/27/2013 Inactive Generic For:COUMADIN 4MG TAB Rocephin 500 mg solution for injection RxNorm: 638614 Inj 04/1604/16/2013 Inactive amoxicillin 500 mg tablet RxNorm: 730054 1 Tablet(s) PO TID 04/22/2013 Inactive Coumadin 4 mg tablet RxNorm: 264226 Tablet(s) PO TAKE ONE TABLET BY MOUTH EVERY DAY 04/16/2013 08/10/2014 Inactive Generic For:COUMADIN 4MG TAB Generic For: COUMADIN 4MG TAB Coumadin 4 mg tablet RxNorm: 542422 4mg daily Tablet(s) PO daily 03/18/2013 04/15/2013 Inactive Generic For:COUMADIN 4MG TAB Coumadin 4 mg tablet RxNorm: 305469 2mg on tuesdays, 4mg others Tablet(s) PO daily 03/10/2013 03/17/2013 Inactive Generic For:COUMADIN 4MG TAB Influenza Virus Vaccine 0.5 mL RxNorm: IM 03/10/2013 03/10/2013 Inactive amlodipine 5 mg tablet RxNorm: 571122 Tablet(s) PO TAKE ONE (1) TABLET BY MOUTH DAILY 01/22/2013 05/17/2013 Inactive Generic For:NORVASC 5 MG TABLET 01/22/2013 9: 42:13 AM cephalexin 500 mg tablet RxNorm: 572761 1 Tablet(s) PO TID 12/08/2012 Inactive amlodipine 5 mg tablet RxNorm: 976105 Tablet(s) PO TAKE ONE (1) TABLET BY MOUTH DAILY 09/22/2012 01/21/2013 Inactive Generic For:NORVASC 5 MG TABLET 09/20/2012 9: 10AM 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 Coumadin 4 mg tablet RxNorm: 324443 1 Tablet(s) PO daily TAKE ONE TABLET BY MOUTH EVERY DAY 09/15/2012 03/09/2013 Inactive Generic For:COUMADIN 4MG TAB Coumadin 4 mg tablet RxNorm: 733356 Tablet(s) PO TAKE ONE TABLET BY MOUTH EVERY DAY 09/12/2012 09/14/2012 Inactive Generic For:COUMADIN 4MG TAB Coumadin 4 mg tablet RxNorm: 039982 1 Tablet(s) PO daily 201209/11/2012 Inactive new dose Coumadin 4 mg tablet RxNorm: 771147 1 Tablet(s) PO daily 201207/15/2012 Inactive Coumadin 3 mg tablet RxNorm: 463281 1 1/2 Tablet(s) PO daily 07/16/2012 Inactive pravastatin 40 mg tablet RxNorm: 146812 1 Tablet(s) PO daily 07/19/2013 Inactive Coumadin 3 mg tablet RxNorm: 408055 1 1/2 Tablet(s) PO daily 07/15/2012 Inactive amlodipine 5 mg tablet RxNorm: 769470 1 Tablet(s) PO daily 05/201209/21/2012 Inactive Voltaren 1 % Topical Gel RxNorm: 614900 4 Gram(s) TOP QID 04/2805/27/2012 Inactive Chikis 180 mg tablet RxNorm: 147648 1 Tablet(s) PO daily No Start Date Active hydrochlorothiazide 12.5 mg tablet RxNorm: 212144 1 Tablet(s) PO daily No Start Date 06/28/2015 Inactive Ziac 2.5 mg-6.25 mg tablet RxNorm: 447535 1 Tablet(s) PO daily No Start Date 09/15/2013 Inactive Coumadin 3 mg tablet RxNorm: 072762 Tablet(s) PO No Start Date 04/30/2012 Inactive pravastatin 40 mg tablet RxNorm: 408844 1 Tablet(s) PO daily No Start Date 06/25/2012 Inactive Medication Administered Medication Codes Instructions Start Date Status Kenalog 40 mg/mL suspension for injection RxNorm: 5822966 Milliliter 05/20/2013 No longer Active Rocephin 500 mg solution for injection RxNorm: 498847 04/16/2013 No longer Active Influenza Virus Vaccine 0.5 mL RxNorm: 03/10/2013 No longer Active Immunizations Vaccine Codes Date Status Influenza CVX: 141 03/25/2015 completed Influenza CVX: 141 04/23/2014 completed Influenza CVX: 141 03/10/2013 completed Influenza CVX: 141 04/28/2012 completed Pneumococcal (Adult) CVX: 33 03/17/2011 completed Assessments Condition Codes Effective Dates Pain in left hip ICD-10: M25.552 ICD-9: 719.45 02/14/2018 Unsteadiness on feet ICD-10: R26.81 ICD-9: 781.2 02/14/2018 Unspecified dementia with behavioral disturbance ICD-10: F03.91 ICD-9: 294.21 02/14/2018 Vitamin D deficiency, unspecified ICD-10: E55.9 ICD-9: 268.9 02/14/2018 Encounter for therapeutic drug level monitoring ICD-10: Z51.81 ICD-9: V58.61 02/14/2018 Essential (primary) hypertension ICD-10: I10 ICD-9: 401.1 02/14/2018 Abnormal weight loss ICD-10: R63.4 ICD-9: 783.21 12/09/2017 Dementia in other diseases classified elsewhere without behavioral disturbance ICD-10: F02.80 ICD-9: 294.10 11/14/2017 Localized edema ICD-10: R60.0 ICD-9: 782.3 08/13/2017 Gastro-esophageal reflux disease without esophagitis ICD-10 : K21.9 ICD-9: 530.81 05/07/2017 Mixed hyperlipidemia ICD-10: E78.2 ICD-9: 272.2 01/08/2017 Urinary tract infection, site not specified ICD-10: N39.0 ICD-9: 599.0 01/08/2017 Essential (primary) hypertension ICD-10: I10 ICD-9: 401.9 01/08/2017 Dysuria ICD-10: R30.0 ICD-9: 788.1 01/07/2017 Other long-term (current) drug therapy ICD-10: Z79.899 ICD-9: V58.69 [...] Visit Reason For Visit Effective Dates Notes lower leg pain 02/14/2018 lower leg pain [...] Observation Code Item Item Code Result Date Pt Nui3984 PT 30.3 seconds 07/18/2018 Pt Yrw3462 INR 2.9 07/18/2018 Pt Btn8294 Low Intensity - 1.5-2.0 07/18/2018 Pt Bhg2000 Mod intensity - 2.0-3.0 07/18/2018 Pt Iop7541 Hi intensity - 3.0-4.0 07/18/2018 Pt Xpx7386 PT 32.5 seconds 06/20/2018 Pt Wlh8802 INR 3.2 06/20/2018 Pt Wvw9801 Low Intensity - 1.5-2.0 06/20/2018 Pt Fwe5801 Mod intensity - 2.0-3.0 06/20/2018 Pt Dfl9872 Hi intensity - 3.0-4.0 06/20/2018 Pt Jfl6347 PT 30.3 seconds 05/19/2018 Pt Fjm8429 INR 2.9 05/19/2018 Pt Djc2817 Low Intensity - 1.5-2.0 05/19/2018 Pt Pfv8271 Mod intensity - 2.0-3.0 05/19/2018 Pt Wfu5945 Hi intensity - 3.0-4.0 05/19/2018 Pt Bau8658 PT 28.9 seconds 04/18/2018 Pt Vhl3516 INR 2.8 04/18/2018 Pt Aiu5474 Low Intensity - 1.5-2.0 04/18/2018 Pt Tmz4171 Mod intensity - 2.0-3.0 04/18/2018 Pt Yaf6512 Hi intensity - 3.0-4.0 04/18/2018 Pt Tjc0507 PT 23.6 seconds 03/14/2018 Pt Ryf4283 INR 2.1 03/14/2018 Pt Hcr4312 Low Intensity - 1.5-2.0 03/14/2018 Pt Wgu1095 Mod intensity - 2.0-3.0 03/14/2018 Pt Tax4210 Hi intensity - 3.0-4.0 03/14/2018 Comp Metabolic Gna428 NA 142 mEq/L 02/14/2018 Comp Metabolic Imc079 K 4.0 mEq/L 02/14/2018 Comp Metabolic Ffh423 CL 107 mEq/L 02/14/2018 Comp Metabolic Tqd648 CO2 25.0 mEq/L 02/14/2018 Comp Metabolic Xqj455 ANION GAP 14 02/14/2018 Comp Metabolic Vey860 GLUCOSE 71 mg/dL 02/14/2018 Comp Metabolic Gdo278 Creat 0.8 mg/dL 02/14/2018 Comp Metabolic Eec258 eGFR 77 ml/min/1.73m2 02/14/2018 Comp Metabolic Euo041 BUN 11 mg/dL 02/14/2018 Comp Metabolic Xue313 B/C Ratio 14.5 Ratio 02/14/2018 Comp Metabolic Lnd916 CALCIUM 9.3 mg/dL 02/14/2018 Comp Metabolic Xwh640 ALK PHOS 56 U/L 02/14/2018 Comp Metabolic Shi683 AST(SGOT) 13 U/L 02/14/2018 Comp Metabolic Vcv059 ALT(SGPT) 8 U/L 02/14/2018 Comp Metabolic Sgd512 BILI T 0.7 mg/dL 02/14/2018 Comp Metabolic Igx766 ALBUMIN 3.7 g/dL 02/14/2018 Comp Metabolic Vxn769 TPRO 6.5 g/dL 02/14/2018 Comp Metabolic Xxy672 GLOB 2.8 g/dL 02/14/2018 Comp Metabolic Xak709 A/G Ratio 1.3 Ratio 02/14/2018 Comp Metabolic Wvs358 Osmo 281 mOsmo 02/14/2018 Tsh Ord6 TSH (3rd IS) 2.84 uIU/mL 02/14/2018 Cbc With Differential Ord2 WBC 4.67 K/ul 02/14/2018 Cbc With Differential Ord2 RBC 4.86 M/ul 02/14/2018 Cbc With Differential Ord2 HGB 15.8 g/dl 02/14/2018 Cbc With Differential Ord2 Neut% 66.3 % 02/14/2018 Cbc With Differential Ord2 HCT 47.9 % 02/14/2018 Cbc With Differential Ord2 MCV 98.6 fl 02/14/2018 Cbc With Differential Ord2 Lymph% 18.8 % 02/14/2018 Cbc With Differential Ord2 [place]% 12.8 % 02/14/2018 Cbc With Differential Ord2 MCH 32.5 pg 02/14/2018 Cbc With Differential Ord2 MCHC 33.0 pg 02/14/2018 Cbc With Differential Ord2 Eos% 1.9 % 02/14/2018 Cbc With Differential Ord2 PLT 223 K/ul 02/14/2018 Cbc With Differential Ord2 Baso% 0.2 % 02/14/2018 Cbc With Differential Ord2 Neut ABS# 3.09 K/ul 02/14/2018 Cbc With Differential Ord2 RDW 14.8 % 02/14/2018 Cbc With Differential Ord2 Lymph ABS# 0.88 K/ul 02/14/2018 Cbc With Differential Ord2 [place] ABS# 0.6 K/ul 02/14/2018 Cbc With Differential Ord2 Eos ABS# 0.1 K/ul 02/14/2018 Cbc With Differential Ord2 Baso ABS# 0.0 K/ul 02/14/2018 Pt Kdm8741 PT 26.2 seconds 02/14/2018 Pt Otm6966 INR 2.4 02/14/2018 Pt Ema8911 Low Intensity - 1.5-2.0 02/14/2018 Pt Dkf2775 Mod intensity - 2.0-3.0 02/14/2018 Pt Eta1363 Hi intensity - 3.0-4.0 02/14/2018 Vitamin D 25 Oh Lei7408 VITAMIN D, 25 HYDROXY 14.31 ng/mL Valproic Acid Exm205 VALPROIC 20.0 ug/ml 02/14/2018 Pt Qri1658 PT 29.2 seconds 01/16/2018 Pt Arf1062 INR 2.7 01/16/2018 Pt Xxs6734 Low Intensity - 1.5-2.0 01/16/2018 Pt Zir2220 Mod intensity - 2.0-3.0 01/16/2018 Pt Kdl7666 Hi intensity - 3.0-4.0 01/16/2018 Pt Qlp8753 PT 29.1 seconds 12/09/2017 Pt Ifs9305 INR 2.7 12/09/2017 Pt Say0116 Low Intensity - 1.5-2.0 12/09/2017 Pt Hps0787 Mod intensity - 2.0-3.0 12/09/2017 Pt Kwd5197 Hi intensity - 3.0-4.0 12/09/2017 Pt Gxo1363 PT 25.5 seconds 10/31/2017 Pt Krd9634 INR 2.3 10/31/2017 Pt Czw4899 Low Intensity - 1.5-2.0 10/31/2017 Pt Hbz4084 Mod intensity - 2.0-3.0 10/31/2017 Pt Bug0480 Hi intensity - 3.0-4.0 10/31/2017 Pt Ryy3038 PT 29.5 seconds 10/03/2017 Pt Xcq2974 INR 2.8 10/03/2017 Pt Gnv5023 Low Intensity - 1.5-2.0 10/03/2017 Pt Ijy4056 Mod intensity - 2.0-3.0 10/03/2017 Pt Pia6259 Hi intensity - 3.0-4.0 10/03/2017 Pt Jan5006 PT 28.1 seconds 08/30/2017 Pt Eta7005 INR 2.6 08/30/2017 Pt Aob1904 Low Intensity - 1.5-2.0 08/30/2017 Pt Vkl1955 Mod intensity - 2.0-3.0 08/30/2017 Pt Fmg2374 Hi intensity - 3.0-4.0 08/30/2017 Pt Eru5036 PT 33.2 seconds 08/15/2017 Pt Vtn0724 INR 3.2 08/15/2017 Pt Kya8150 Low Intensity - 1.5-2.0 08/15/2017 Pt Zuz4107 Mod intensity - 2.0-3.0 08/15/2017 Pt Avo3619 Hi intensity - 3.0-4.0 08/15/2017 Pt Bec5931 PT 31.5 seconds 07/10/2017 Pt Lxg3643 INR 3.0 07/10/2017 Pt Vho0742 Low Intensity - 1.5-2.0 07/10/2017 Pt Yrq1997 Mod intensity - 2.0-3.0 07/10/2017 Pt Skm2579 Hi intensity - 3.0-4.0 07/10/2017 Pt Ggh4398 PT 33.5 seconds 05/31/2017 Pt Zjx6483 INR 3.2 05/31/2017 Pt Uqq9127 Low Intensity - 1.5-2.0 05/31/2017 Pt Jmv3906 Mod intensity - 2.0-3.0 05/31/2017 Pt Aeb5127 Hi intensity - 3.0-4.0 05/31/2017 Pt Ols1823 PT 32.2 seconds 05/02/2017 Pt Rqh3085 INR 3.1 05/02/2017 Pt Ggp8291 Low Intensity - 1.5-2.0 05/02/2017 Pt Xku2662 Mod intensity - 2.0-3.0 05/02/2017 Pt Kte5374 Hi intensity - 3.0-4.0 05/02/2017 Pt Hrx1385 PT 26.8 seconds 03/28/2017 Pt Kkl7978 INR 2.5 03/28/2017 Pt Jwa4501 Low Intensity - 1.5-2.0 03/28/2017 Pt Use6910 Mod intensity - 2.0-3.0 03/28/2017 Pt Nzz6487 Hi intensity - 3.0-4.0 03/28/2017 Pt Kxf5606 PT 26.8 seconds 02/22/2017 Pt Yar4593 INR 2.5 02/22/2017 Pt Cha8188 Low Intensity - 1.5-2.0 02/22/2017 Pt Qwu9198 Mod intensity - 2.0-3.0 02/22/2017 Pt Dyp5055 Hi intensity - 3.0-4.0 02/22/2017 Pt Psf1553 PT 20.1 seconds 02/07/2017 Pt Hpl4849 INR 1.7 02/07/2017 Pt Uan7451 Low Intensity - 1.5-2.0 02/07/2017 Pt Wlh2632 Mod intensity - 2.0-3.0 02/07/2017 Pt Hvy4142 Hi intensity - 3.0-4.0 02/07/2017 Culture Urine [id number] URINE CULTURE SEE NOTES 01/10/2017 Culture Urine [id number] Continued Results 01/10/2017 Urine Culture Ucult Complete >100,000 col/ml aerobic growth sent to ref lab 01/08/2017 Valproic Acid (Depakote) S [id number] VALPROIC ACID 20.3 ug/mL 01/08/2017 Tsh Ord6 hTSH II 2.50 uIU/mL 01/07/2017 Cbc With Differential Ord2 WBC 4.94 K/ul 01/07/2017 Cbc With Differential Ord2 RBC 4.93 M/ul 01/07/2017 Cbc With Differential Ord2 HGB 15.8 g/dl 01/07/2017 Cbc With Differential Ord2 HCT 48.3 % 01/07/2017 Cbc With Differential Ord2 Neut% 67.3 % 01/07/2017 Cbc With Differential Ord2 Lymph% 19.6 % 01/07/2017 Cbc With Differential Ord2 MCV 98.0 fl 01/07/2017 Cbc With Differential Ord2 [place]% 10.5 % 01/07/2017 Cbc With Differential Ord2 MCH 32.0 pg 01/07/2017 Cbc With Differential Ord2 Eos% 2.4 % 01/07/2017 Cbc With Differential Ord2 MCHC 32.7 pg 01/07/2017 Cbc With Differential Ord2 Baso% 0.2 % 01/07/2017 Cbc With Differential Ord2 PLT 210 K/ul 01/07/2017 Cbc With Differential Ord2 RDW 14.3 % 01/07/2017 Cbc With Differential Ord2 Neut ABS# 3.32 K/ul 01/07/2017 Cbc With Differential Ord2 Lymph ABS# 0.97 K/ul 01/07/2017 Cbc With Differential Ord2 [place] ABS# 0.5 K/ul 01/07/2017 Cbc With Differential Ord2 Eos ABS# 0.1 K/ul 01/07/2017 Cbc With Differential Ord2 Baso ABS# 0.0 K/ul 01/07/2017 Comp Metabolic Tht674 NA 142 mEq/L 01/07/2017 Comp Metabolic Lzo080 K 4.0 mEq/L 01/07/2017 Comp Metabolic Qsq949 CL 105 mEq/L 01/07/2017 Comp Metabolic Fjw348 CO2 24.0 mEq/L 01/07/2017 Comp Metabolic Zkg606 ANION GAP 17 01/07/2017 Comp Metabolic Lbs156 GLUCOSE 81 mg/dL 01/07/2017 Comp Metabolic Eok425 Creat 0.8 mg/dL 01/07/2017 Comp Metabolic Cik566 eGFR 72 ml/min/1.73m2 01/07/2017 Comp Metabolic Bks233 BUN 12 mg/dL 01/07/2017 Comp Metabolic Crk618 B/C Ratio 15.0 Ratio 01/07/2017 Comp Metabolic Dqm207 CALCIUM 9.0 mg/dL 01/07/2017 Comp Metabolic Uzw360 ALK PHOS 59 U/L 01/07/2017 Comp Metabolic Mdp837 AST(SGOT) 18 U/L 01/07/2017 Comp Metabolic Lzc181 ALT(SGPT) 11 U/L 01/07/2017 Comp Metabolic Rxz181 BILI T 0.6 mg/dL 01/07/2017 Comp Metabolic Byp761 ALBUMIN 3.6 g/dL 01/07/2017 Comp Metabolic Fsr069 TPRO 6.7 g/dL 01/07/2017 Comp Metabolic Pko440 GLOB 3.1 g/dL 01/07/2017 Comp Metabolic Eel295 A/G Ratio 1.2 Ratio 01/07/2017 Comp Metabolic Cvi620 Osmo 282 mOsmo 01/07/2017 Pt Dri9590 PT 19.5 seconds 01/07/2017 Pt Mlm0109 INR 1.7 01/07/2017 Pt Rbn6368 Low Intensity - 1.5-2.0 01/07/2017 Pt Gcy1257 Mod intensity - 2.0-3.0 01/07/2017 Pt Mmm1145 Hi intensity - 3.0-4.0 01/07/2017 Pt Hky2546 PT 22.5 seconds 12/06/2016 Pt Ybo2474 INR 2.1 12/06/2016 Pt Qej9491 Low Intensity - 1.5-2.0 12/06/2016 Pt Pnx3448 Mod intensity - 2.0-3.0 12/06/2016 Pt Ult2809 Hi intensity - 3.0-4.0 12/06/2016 Pt Nig8783 PT 20.8 seconds 10/29/2016 Pt Llc7950 INR 1.9 10/29/2016 Pt Ibu9786 Low Intensity - 1.5-2.0 10/29/2016 Pt Ruf3027 Mod intensity - 2.0-3.0 10/29/2016 Pt Xtr9244 Hi intensity - 3.0-4.0 10/29/2016 Pt Xot5404 PT 21.9 seconds 09/24/2016 Pt Mzb9026 INR 2.0 09/24/2016 Pt Cmq3192 Low Intensity - 1.5-2.0 09/24/2016 Pt Ysc2824 Mod intensity - 2.0-3.0 09/24/2016 Pt Thc0271 Hi intensity - 3.0-4.0 09/24/2016 Pt Jte2956 PT 21.0 seconds 09/10/2016 Pt Msl9446 INR 1.9 09/10/2016 Pt Grz9495 Low Intensity - 1.5-2.0 09/10/2016 Pt Rns8680 Mod intensity - 2.0-3.0 09/10/2016 Pt Snm6969 Hi intensity - 3.0-4.0 09/10/2016 Pt Zfk5794 PT 22.8 seconds 08/20/2016 Pt Vvy6897 INR 2.1 08/20/2016 Pt Dfh5344 Low Intensity - 1.5-2.0 08/20/2016 Pt Mwu9703 Mod intensity - 2.0-3.0 08/20/2016 Pt Lgp7947 Hi intensity - 3.0-4.0 08/20/2016 Pt Oaw3851 PT 19.2 seconds 08/02/2016 Pt Oks0354 INR 1.7 08/02/2016 Pt Rxs0880 Low Intensity - 1.5-2.0 08/02/2016 Pt Qwc0389 Mod intensity - 2.0-3.0 08/02/2016 Pt Tpx7068 Hi intensity - 3.0-4.0 08/02/2016 Pt Tdj3798 PT 31.2 seconds 07/12/2016 Pt Wwi4745 INR 3.2 07/12/2016 Pt Cui4060 Low Intensity - 1.5-2.0 07/12/2016 Pt Bph5839 Mod intensity - 2.0-3.0 07/12/2016 Pt Ueh7879 Hi intensity - 3.0-4.0 07/12/2016 Pt Ahd1751 PT 20.3 seconds 07/05/2016 Pt Bqd4059 INR 1.8 07/05/2016 Pt Iwp2793 Low Intensity - 1.5-2.0 07/05/2016 Pt Cks1006 Mod intensity - 2.0-3.0 07/05/2016 Pt Cfp1566 Hi intensity - 3.0-4.0 07/05/2016 Pt Jgd1762 PT 22.2 seconds 05/29/2016 Pt Asd2389 INR 2.1 05/29/2016 Pt Hzr8981 Low Intensity - 1.5-2.0 05/29/2016 Pt Igk1849 Mod intensity - 2.0-3.0 05/29/2016 Pt Qvr8809 Hi intensity - 3.0-4.0 05/29/2016 Comp Metabolic Hza006 NA 138 mEq/L 04/25/2016 Comp Metabolic Mta340 K 4.1 mEq/L 04/25/2016 Comp Metabolic Ate033 CL 105 mEq/L 04/25/2016 Comp Metabolic Niy042 CO2 25.0 mEq/L 04/25/2016 Comp Metabolic Rjv211 ANION GAP 12 04/25/2016 Comp Metabolic Jre560 GLUCOSE 89 mg/dL 04/25/2016 Comp Metabolic Ogg906 Creat 0.8 mg/dL 04/25/2016 Comp Metabolic Mia766 eGFR 71 ml/min/1.73m2 04/25/2016 Comp Metabolic Bji378 BUN 14 mg/dL 04/25/2016 Comp Metabolic Bum147 B/C Ratio 17.3 Ratio 04/25/2016 Comp Metabolic Okg155 CALCIUM 9.0 mg/dL 04/25/2016 Comp Metabolic Xfq036 ALK PHOS 63 U/L 04/25/2016 Comp Metabolic Jzy964 AST(SGOT) 15 U/L 04/25/2016 Comp Metabolic Nrj818 ALT(SGPT) 9 U/L 04/25/2016 Comp Metabolic Zpf950 BILI T 0.4 mg/dL 04/25/2016 Comp Metabolic Knv459 ALBUMIN 3.7 g/dL 04/25/2016 Comp Metabolic Qtg991 TPRO 6.4 g/dL 04/25/2016 Comp Metabolic Tgs571 GLOB 2.7 g/dL 04/25/2016 Comp Metabolic Iis964 A/G Ratio 1.4 Ratio 04/25/2016 Comp Metabolic Rzx081 Osmo 276 mOsmo 04/25/2016 Valproic Acid Cxs510 VALPROIC 17.0 ug/ml 04/25/2016 Pt Lia2081 PT 21.9 seconds 04/25/2016 Pt Rgs4725 INR 2.0 04/25/2016 Pt Hzr1031 Low Intensity - 1.5-2.0 04/25/2016 Pt Zmt5412 Mod intensity - 2.0-3.0 04/25/2016 Pt Tpl8014 Hi intensity - 3.0-4.0 04/25/2016 Cbc With Differential Ord2 WBC 4.98 K/ul 04/25/2016 Cbc With Differential Ord2 RBC 4.68 M/ul 04/25/2016 Cbc With Differential Ord2 HGB 15.2 g/dl 04/25/2016 Cbc With Differential Ord2 Neut% 59.3 % 04/25/2016 Cbc With Differential Ord2 HCT 46.3 % 04/25/2016 Cbc With Differential Ord2 Lymph% 25.9 % 04/25/2016 Cbc With Differential Ord2 MCV 98.9 fl 04/25/2016 Cbc With Differential Ord2 [place]% 12.4 % 04/25/2016 Cbc With Differential Ord2 MCH 32.5 pg 04/25/2016 Cbc With Differential Ord2 Eos% 2.2 % 04/25/2016 Cbc With Differential Ord2 MCHC 32.8 pg 04/25/2016 Cbc With Differential Ord2 Baso% 0.2 % 04/25/2016 Cbc With Differential Ord2 PLT 203 K/ul 04/25/2016 Cbc With Differential Ord2 RDW 14.1 % 04/25/2016 Cbc With Differential Ord2 Neut ABS# 2.95 K/ul 04/25/2016 Cbc With Differential Ord2 Lymph ABS# 1.29 K/ul 04/25/2016 Cbc With Differential Ord2 [place] ABS# 0.6 K/ul 04/25/2016 Cbc With Differential Ord2 Eos ABS# 0.1 K/ul 04/25/2016 Cbc With Differential Ord2 Baso ABS# 0.0 K/ul 04/25/2016 Tsh Ord6 hTSH II 3.38 uIU/mL 04/25/2016 Pt Ehi5563 PT 24.4 seconds 03/27/2016 Pt Lyn1697 INR 2.3 03/27/2016 Pt Hsl2738 Low Intensity - 1.5-2.0 03/27/2016 Pt Rsc2083 Mod intensity - 2.0-3.0 03/27/2016 Pt Sod9572 Hi intensity - 3.0-4.0 03/27/2016 Pt Jzq5193 PT 22.7 seconds 02/24/2016 Pt Dkn3807 INR 2.1 02/24/2016 Pt Gxl6869 Low Intensity - 1.5-2.0 02/24/2016 Pt Qyg1880 Mod intensity - 2.0-3.0 02/24/2016 Pt Aqo5984 Hi intensity - 3.0-4.0 02/24/2016 Pt Agf7370 PT 24.2 seconds 02/10/2016 Pt Emd4037 INR 2.3 02/10/2016 Pt Pvg2419 Low Intensity - 1.5-2.0 02/10/2016 Pt Skt6725 Mod intensity - 2.0-3.0 02/10/2016 Pt Rmp3103 Hi intensity - 3.0-4.0 02/10/2016 Pt Cdm6339 PT 15.7 seconds 01/26/2016 Pt Gtg2947 INR 1.3 01/26/2016 Pt Zfh2623 Low Intensity - 1.5-2.0 01/26/2016 Pt Mbx1715 Mod intensity - 2.0-3.0 01/26/2016 Pt Ttq2406 Hi intensity - 3.0-4.0 01/26/2016 Pt Syv8463 PT 22.0 seconds 01/02/2016 Pt Epf3317 INR 2.0 01/02/2016 Pt Tkv1304 Low Intensity - 1.5-2.0 01/02/2016 Pt Vqx4703 Mod intensity - 2.0-3.0 01/02/2016 Pt Dpu6138 Hi intensity - 3.0-4.0 01/02/2016 Pt Nia1094 PT 21.9 seconds 11/30/2015 Pt Lka4130 INR 2.0 11/30/2015 Pt Ude8642 Low Intensity - 1.5-2.0 11/30/2015 Pt Hpd3929 Mod intensity - 2.0-3.0 11/30/2015 Pt Qcm8353 Hi intensity - 3.0-4.0 11/30/2015 Pt Qyg7420 PT 20.0 seconds 10/28/2015 Pt Zwt5707 INR 1.8 10/28/2015 Pt Xdf6700 Low Intensity - 1.5-2.0 10/28/2015 Pt Dzz4770 Mod intensity - 2.0-3.0 10/28/2015 Pt Eqa2883 Hi intensity - 3.0-4.0 10/28/2015 Cbc With Differential Ord2 WBC 5.50 K/ul 09/19/2015 Cbc With Differential Ord2 RBC 4.48 M/ul 09/19/2015 Cbc With Differential Ord2 HGB 14.4 g/dl 09/19/2015 Cbc With Differential Ord2 Neut% 69.0 % 09/19/2015 Cbc With Differential Ord2 HCT 42.6 % 09/19/2015 Cbc With Differential Ord2 MCV 95.1 fl 09/19/2015 Cbc With Differential Ord2 Lymph% 17.8 % 09/19/2015 Cbc With Differential Ord2 MCH 32.2 pg 09/19/2015 Cbc With Differential Ord2 [place]% 11.4 % 09/19/2015 Cbc With Differential Ord2 [...] 0.89 K/ul 09/19/2015 Cbc With Differential Ord2 [place] ABS# 0.6 K/ul 09/19/2015 Cbc With Differential Ord2 Eos ABS# 0.1 K/ul 09/19/2015 Cbc With Differential Ord2 Baso ABS# 0.0 K/ul 09/19/2015 Cbc With Differential Ord2 New Analyzer Notice Please note new ref ranges starting 06-29-2015 due to implemntation of new five part differential hematolgy analyzer. 09/19/2015 Pt Pno4741 PT 28.3 seconds 09/19/2015 Pt Swy0025 INR 2.8 09/19/2015 Pt Wxx5615 Low Intensity - 1.5-2.0 09/19/2015 Pt Cib2465 Mod intensity - 2.0-3.0 09/19/2015 Pt Zan7818 Hi intensity - 3.0-4.0 09/19/2015 Pt Aps7553 PT 22.5 seconds 08/12/2015 Pt Jnb4470 INR 2.1 08/12/2015 Pt Xdt3921 Low Intensity - 1.5-2.0 08/12/2015 Pt Ilc4650 Mod intensity - 2.0-3.0 08/12/2015 Pt Ykc3279 Hi intensity - 3.0-4.0 08/12/2015 Pt Gol7238 PT 34.1 seconds 07/29/2015 Pt Cuf9959 INR 3.5 07/29/2015 Pt Lye8721 Low Intensity - 1.5-2.0 07/29/2015 Pt Svh3589 Mod intensity - 2.0-3.0 07/29/2015 Pt Ezi6020 Hi intensity - 3.0-4.0 07/29/2015 Pt Ixw9868 PT 14.2 seconds 06/29/2015 Pt Ajc1399 INR 1.1 06/29/2015 Pt Xju5620 Low Intensity - 1.5-2.0 06/29/2015 Pt Pcz7103 Mod intensity - 2.0-3.0 06/29/2015 Pt Fxv9995 Hi intensity - 3.0-4.0 06/29/2015 Comp Metabolic Mhp304 NA 139 mEq/L 06/29/2015 Comp Metabolic Xib260 K 3.8 mEq/L 06/29/2015 Comp Metabolic Zqe437 CL 105 mEq/L 06/29/2015 Comp Metabolic Itj742 CO2 21.0 mEq/L 06/29/2015 Comp Metabolic Fwu726 ANION GAP 17 06/29/2015 Comp Metabolic Vom920 GLUCOSE 78 mg/dL 06/29/2015 Comp Metabolic Err057 Creat 0.7 mg/dL 06/29/2015 Comp Metabolic Jgg842 eGFR 86 ml/min/1.73m2 06/29/2015 Comp Metabolic Pwh710 BUN 7 mg/dL 06/29/2015 Comp Metabolic Rew181 B/C Ratio 10.1 Ratio 06/29/2015 Comp Metabolic Hmf447 CALCIUM 9.3 mg/dL 06/29/2015 Comp Metabolic Nrw932 ALK PHOS 84 U/L 06/29/2015 Comp Metabolic Ora010 AST(SGOT) 17 U/L 06/29/2015 Comp Metabolic Yuk764 ALT(SGPT) 10 U/L 06/29/2015 Comp Metabolic Tsc362 BILI T 1.0 mg/dL 06/29/2015 Comp Metabolic Bpg626 ALBUMIN 4.1 g/dL 06/29/2015 Comp Metabolic Nrg640 TPRO 7.0 g/dL 06/29/2015 Comp Metabolic Ufv762 GLOB 2.9 g/dL 06/29/2015 Comp Metabolic Zct938 A/G Ratio 1.4 Ratio 06/29/2015 Comp Metabolic Cvc066 Osmo 274 mOsmo 06/29/2015 Tsh Ord6 hTSH II 2.48 uIU/mL 06/29/2015 CBC With Differential * WBC 4.8 [...] Lipid Ord30 C/HDL 3.5 Ratio 06/29/2015 Pt Pvv6052 PT 25.9 seconds 05/16/2015 Pt Fpq9684 INR 2.5 05/16/2015 Pt Pmp8569 Low Intensity - 1.5-2.0 05/16/2015 Pt Jzv9169 Mod intensity - 2.0-3.0 05/16/2015 Pt Vwr7609 Hi intensity - 3.0-4.0 05/16/2015 Pt Zvh5215 PT 28.2 seconds 04/19/2015 Pt Jus9462 INR 2.7 04/19/2015 Pt Uxh6333 Low Intensity - 1.5-2.0 04/19/2015 Pt Ikx9900 Mod intensity - 2.0-3.0 04/19/2015 Pt Qfd3738 Hi intensity - 3.0-4.0 04/19/2015 Pt Miq0918 PT 29.7 seconds 02/17/2015 Pt Spi9809 INR 2.9 02/17/2015 Pt Uev8704 Low Intensity - 1.5-2.0 02/17/2015 Pt Tsb0047 Mod intensity - 2.0-3.0 02/17/2015 Pt Ueo4641 Hi intensity - 3.0-4.0 02/17/2015 Comp Metabolic Szs326 NA 136 mEq/L 02/07/2015 Comp Metabolic Vuf731 K 4.2 mEq/L 02/07/2015 Comp Metabolic Trn674 CL 105 mEq/L 02/07/2015 Comp Metabolic Ikc323 CO2 23.0 mEq/L 02/07/2015 Comp Metabolic Cgk482 ANION GAP 12 02/07/2015 Comp Metabolic Fzn483 GLUCOSE 129 mg/dL 02/07/2015 Comp Metabolic Qxb069 Creat 0.9 mg/dL 02/07/2015 Comp Metabolic Xjj868 eGFR 67 ml/min/1.73m2 02/07/2015 Comp Metabolic Lae979 BUN 13 mg/dL 02/07/2015 Comp Metabolic Kya753 B/C Ratio 15.1 Ratio 02/07/2015 Comp Metabolic Sdo761 CALCIUM 9.3 mg/dL 02/07/2015 Comp Metabolic Tjy641 ALK PHOS 79 U/L 02/07/2015 Comp Metabolic Apt371 AST(SGOT) 16 U/L 02/07/2015 Comp Metabolic Jmq710 ALT(SGPT) 10 U/L 02/07/2015 Comp Metabolic Urw826 BILI T 0.5 mg/dL 02/07/2015 Comp Metabolic Bpi989 ALBUMIN 4.0 g/dL 02/07/2015 Comp Metabolic Gtc665 TPRO 6.9 g/dL 02/07/2015 Comp Metabolic Hya641 GLOB 2.9 g/dL 02/07/2015 Comp Metabolic Hdq320 A/G Ratio 1.4 Ratio 02/07/2015 Comp Metabolic Ths597 Osmo 274 mOsmo 02/07/2015 Tsh Ord6 hTSH II 2.36 uIU/mL 02/07/2015 Pt Jnn8237 PT 26.8 seconds 02/07/2015 Pt Hlq7162 INR 2.6 02/07/2015 Pt Nrw4900 Low Intensity - 1.5-2.0 02/07/2015 Pt Pkt8396 Mod intensity - 2.0-3.0 02/07/2015 Pt Xph1288 Hi intensity - 3.0-4.0 02/07/2015 Cbc With Differential Ord2 WBC 5.4 K/uL [...] Differential Ord2 RDW 14.5 % 02/07/2015 Pt Dgy3332 PT 27.9 seconds 02/04/2015 Pt Bfn6927 INR 2.7 02/04/2015 Pt Mer5442 Low Intensity - 1.5-2.0 02/04/2015 Pt Dcz4429 Mod intensity - 2.0-3.0 02/04/2015 Pt Ckl1322 Hi intensity - 3.0-4.0 02/04/2015 Pt Mbv0024 PT 17.2 seconds 01/25/2015 Pt Nuz0346 INR 1.4 01/25/2015 Pt Syk9494 Low Intensity - 1.5-2.0 01/25/2015 Pt Bwo9845 Mod intensity - 2.0-3.0 01/25/2015 Pt Dnj1686 Hi intensity - 3.0-4.0 01/25/2015 Pt Ckf1319 PT 20.7 seconds 12/23/2014 Pt Vmd1041 INR 1.8 12/23/2014 Pt Kro5667 Low Intensity - 1.5-2.0 12/23/2014 Pt Ukz2482 Mod intensity - 2.0-3.0 12/23/2014 Pt Hjh7977 Hi intensity - 3.0-4.0 12/23/2014 PT/MC [id number] PRO TIME 24.9 SEC 08/27/2012 PT/MC [id number] INR MCMC 2.2 08/27/2012 PT/MC [id number] PRO TIME 31.1 SEC 05/13/2012 PT/MC [id number] INR MCMC 3.0 05/13/2012 CBC [id number] WBC 4.0 10e9/L 04/30/2012 CBC [id number] RBC 4.94 10e12/L 04/30/2012 CBC [id number] HGB 15.7 g/dL 04/30/2012 CBC [id number] HCT DET 47.5 % 04/30/2012 CBC [id number] MCV 96.2 fL 04/30/2012 CBC [id number] MCH 31.8 pg 04/30/2012 CBC [id number] MCHC 33.1 g/dL 04/30/2012 CBC [id number] PLT 226 10e9/L 04/30/2012 CBC [id number] MPV 10.9 fL 04/30/2012 CBC [id number] KOBY % 64.8 % 04/30/2012 CBC [id number] LY % 22.1 % 04/30/2012 CBC [id number] MON % 9.5 % 04/30/2012 CBC [id number] EOS % 3.3 % 04/30/2012 CBC [id number] BASO % 0.3 % 04/30/2012 CBC [id number] RDW 13.5 % 04/30/2012 CBC [id number] ABS KOBY 2.59 10e9/L 04/30/2012 CBC [id number] ABS LYMPH 0.88 10e9/L 04/30/2012 CBC [id number] ABS MONO 0.38 10e9/L 04/30/2012 CBC [id number] ABS EOS 0.13 10e9/L 04/30/2012 CBC [id number] ABS BASO 0.01 10e9/L 04/30/2012 CBC [id number] RDW-SD 46.5 fL 04/30/2012 GFR CALC 6900046 GFR AA >60 ML/MIN 04/30/2012 GFR CALC 7303002 GFR NON-AA >60 ML/MIN 04/30/2012 CHEM 14 [id number] AST 16 U/L 04/30/2012 CHEM 14 9482501 ALT 9 IU/L 04/30/2012 CHEM 14 3745126 BUN 7 MG/DL 04/30/2012 CHEM 14 [id number] ALBUMIN 4.0 GM/DL 04/30/2012 CHEM 14 7275678 CHLORIDE 107 MMOL/L 04/30/2012 CHEM 14 3668412 BILI TOT 0.7 MG/DL 04/30/2012 CHEM 14 6509671 ALK PHOS 68 U/L 04/30/2012 CHEM 14 [id number] SODIUM 142 MMOL/L 04/30/2012 CHEM 14 [id number] CREATININE 0.80 MG/DL 04/30/2012 CHEM 14 5848941 CALCIUM 9.5 MG/DL 04/30/2012 CHEM 14 1981976 POTASSIUM 3.7 MMOL/L 04/30/2012 CHEM 14 5544265 PROT TOT 7.1 GM/DL 04/30/2012 CHEM 14 4221816 GLUCOSE 88 MG/DL 04/30/2012 CHEM 14 4049404 BICARB 27 MMOL/L 04/30/2012 CHEM 14 2110151 ANION GAP 8 MEQ/L 04/30/2012 PT/MC [id number] PRO TIME 18.5 SEC 04/30/2012 PT/MC [id number] INR MCMC 1.5 04/30/2012 TSH [id number] TSH 3.019 uIU/ML 04/30/2012 LIPID GRP HDL TEST 47 MG/DL 04/30/2012 LIPID GRP TRIG 131 MG/DL 04/30/2012 LIPID GRP TEST LDL 145 MG/DL 04/30/2012 LIPID GRP CHOL 218 MG/DL 04/30/2012 LIPID GRP RCHOL/HDL 4.64 RATIO 04/30/2012 Review of Systems System Result Effective Dates Constitutional No recent illness 2017 Constitutional No [...] developed 08/13/2017 None Full Exam - General 1995 Constitutional [...] 1994 Eyes conjunctiva /eyelids Overall: cornea clear 11/27/2013 [...] accomodation 08/27/2013 None Full Exam - General 1994 [...] hygiene 05/20/2013 None Full Exam - General 1995 Eyes conjunctiva /eyelids Overall: conjunctiva clear 05/20/2013 None Full Exam - General 1995 Eyes conjunctiva /eyelids Overall: eyelids normal 05/20/2013 None Full Exam - General 1995 Ears/Nose/Throat oral cavity/pharynx/larynx Overall: oral mucosa clear 05/20/2013 None Full Exam - General 1995 Ears/Nose/Throat oral cavity/pharynx/larynx Overall: oropharyngeal mucosa clear 05/20/2013 None Full Exam - General 1995 Ears/Nose/Throat oral cavity/pharynx/larynx Overall: no masses 05/20/2013 None Full Exam - General 1995 Respiratory respiratory effort/rhythm Overall: no retractions 05/20/2013 None Full Exam - General 1995 Respiratory respiratory effort/rhythm Overall: normal rate 05/20/2013 None Full Exam - General 1994 Cardiovascular auscultation of heart Overall: regular rate 05/20/2013 None Full Exam - General 1994 Cardiovascular auscultation of heart Overall: normal heart sounds 05/20/2013 None Full Exam - General 1994 Lymphatic neck nodes Overall: anterior cervical chain benign 05/20/2013 None Full Exam - General 1994 Lymphatic neck nodes Overall: posterior cervical chain benign 05/20/2013 None Full Exam - General 1994 Psychiatric orientation/consciousness Oriented to person: yes 05/20/2013 None Full Exam - General 1994 Psychiatric orientation/consciousness Oriented to place: yes 05/20/2013 None Full Exam - General 1994 Psychiatric orientation/consciousness Oriented to time: no 05/20/2013 None Full Exam - General 1994 Psychiatric orientation/consciousness Level of consciousness: alert 05/20/2013 [...] 04/30/2013 None Full Exam - General 1995 Eyes conjunctiva /eyelids Overall: eyelids normal 04/30/2013 None Full Exam - General 1995 Respiratory auscultation Overall: breath sounds clear bilaterally 04/30/2013 None Full Exam - General 1995 Respiratory respiratory effort/rhythm Overall: no retractions 04/30/2013 None Full Exam - General 1995 Respiratory respiratory effort/rhythm Overall: normal rate 04/30/2013 None Full Exam - General 1995 Cardiovascular auscultation of heart Overall: normal heart sounds 04/30/2013 None Full Exam - General 1995 Cardiovascular auscultation of heart Overall: regular rate 04/30/2013 None Full Exam - General 1995 Psychiatric mood and affect Overall: normal mood and affect 04/30/2013 None Full Exam - General 1995 Lymphatic neck nodes Overall: anterior cervical chain benign 04/30/2013 None Full Exam - General 1995 Lymphatic [...] normal 04/16/2013 None Full Exam - General 1995 Ears/Nose/Throat oral cavity/pharynx/larynx Overall: oral mucosa clear 04/16/2013 None Full Exam - General 1995 Ears/Nose/Throat oral cavity/pharynx/larynx Overall: oropharyngeal mucosa clear 04/16/2013 None Full Exam - General 1995 Ears/Nose/Throat oral cavity/pharynx/larynx Overall: no masses 04/16/2013 None Full Exam - General 1995 Respiratory auscultation Overall: breath sounds clear bilaterally 04/16/2013 None Full Exam - General 1994 Respiratory respiratory effort/rhythm Overall: no retractions 04/16/2013 None Full Exam - General 1995 Respiratory respiratory effort/rhythm Overall: normal rate 04/16/2013 None Full Exam - General 1994 Cardiovascular auscultation of heart Overall: regular rate 04/16/2013 None Full Exam - General 1994 Cardiovascular auscultation of heart Overall: normal heart sounds 04/16/2013 None Full Exam - General 1994 Lymphatic neck nodes Overall: anterior cervical chain benign 04/16/2013 None Full Exam - General 1994 Lymphatic neck nodes Overall: posterior cervical chain benign 04/16/2013 None Full Exam - General 1994 Psychiatric orientation/consciousness Oriented to person: yes 04/16/2013 None Full Exam - General 1994 Psychiatric orientation/consciousness Oriented to place: yes 04/16/2013 None Full Exam - General 1994 Psychiatric orientation/consciousness Oriented to time: no 04/16/2013 None Full Exam - General 1994 Psychiatric orientation/consciousness Level of consciousness: alert 04/16/2013 None Full Exam - General 1994 Psychiatric mood and affect Overall: normal mood and affect 04/16/2013 None Full Exam - General 1994 Neurologic cranial nerves Overall: crainial nerves 2 - 12 grossly intact 04/16/2013 None Full Exam - General 1994 Constitutional general appearance Overall: well nourished 03/10/2013 None Full Exam - General 1994 Constitutional general appearance Overall: well developed 03/10/2013 None Full Exam - General 1994 [...] bilaterally 03/10/2013 None Full Exam - General 1995 Respiratory respiratory effort/rhythm Overall: normal rate 03/10/2013 [...] kyphosis 12/02/2012 None Full Exam - General 1994 Musculoskeletal spine, ribs and pelvis Posture: lordosis 12/02/2012 None Full Exam - General 1994 Musculoskeletal gait and station Station: kyphosis 12/02/2012 None Full Exam - General 1994 Psychiatric orientation/consciousness Overall: oriented to person, place and time 12/02/2012 None Full Exam - General 1994 Constitutional general appearance Overall: well developed 12/02/2012 None Full Exam - General 1994 Constitutional general appearance Overall: in no acute distress 12/02/2012 None Full Exam - General 1994 Constitutional general appearance Overall: well nourished 12/02/2012 None Full Exam - General 1994 Eyes pupils and irises Overall: pupils equal, round, reactive to light and accomodation 12/02/2012 None Full Exam - General 1994 Ears/Nose/Throat oral cavity/pharynx/larynx Overall: oral mucosa clear 12/02/2012 None Full Exam - General 1994 Ears/Nose/Throat [...] 1995 Ears/Nose/Throat oral cavity/pharynx/larynx Overall: no masses 10/08/2012 [...] Orientation: What is the year/season/date/day/month (5): 5 10/08/2012 None Full Exam - General 1994 Neurologic mental status Orientation: Where are we - state/country/town/hospital/floor (5): 5 10/08/2012 None Full Exam - General 1994 Neurologic mental status Registration: Name 3 objects. 1 point for each object recalled (3): 3 10/08/2012 None Full Exam - General 1994 Neurologic mental status Attention/calculation: _ Serial 7's or "world" spelled backward (5): 10/08/2012 None Full Exam - General 1994 Neurologic mental status Recall: Recall of objects mentioned above after 5 min. (3): 1 10/08/2012 None Full Exam - General 1994 Neurologic mental status Language: Name pencil and watch (2): 2 10/08/2012 None Full Exam - General 1994 Psychiatric orientation/consciousness Overall: oriented to person, place and time 10/08/2012 None Full Exam - General 1994 Psychiatric mood and affect Overall: normal mood and affect 10/08/2012 None Full Exam - General 1994 Psychiatric mood and affect Mood: happy 10/08/2012 None Full Exam - General 1994 Constitutional general appearance Overall: well developed 08/27/2012 [...] midsystolic 08/27/2012 None Full Exam - General 1995 Respiratory auscultation Overall: breath sounds clear bilaterally 08/27/2012 None Full Exam - General 1995 Respiratory respiratory effort/rhythm Overall: normal rate 08/27/2012 None Full Exam - General 1995 Respiratory respiratory effort/rhythm Overall: no retractions 08/27/2012 None Full Exam - General 1995 Eyes conjunctiva /eyelids Overall: conjunctiva clear 08/27/2012 None Full Exam - General 1995 Eyes conjunctiva /eyelids Overall: eyelids normal 08/27/2012 None Full Exam - General 1995 Eyes conjunctiva /eyelids Overall: cornea clear 08/27/2012 None Full Exam - General 1995 Cardiovascular auscultation of heart Overall: normal heart sounds 07/09/2012 None Full Exam - General 1994 Cardiovascular auscultation of heart Systolic murmur: midsystolic 07/09/2012 None Full Exam - General 1995 Abdomen abdominal exam Overall: no tenderness 07/09/2012 None Full Exam - General 1994 Abdomen abdominal exam Overall: normal bowel sounds 07/09/2012 None Full Exam - General 1995 Musculoskeletal lower extremity Inspection - thigh: normal appearance 07/09/2012 None Full Exam - General 1995 Musculoskeletal lower extremity Palpation - thigh: tenderness [...] status Orientation: What is the year/season/date/day/month (5): 07/09/2012 None Full Exam - General 1994 Neurologic mental status Orientation: Where are we - state/country/town/hospital/floor (5): 07/09/2012 None Full Exam - General 1994 Neurologic mental status Registration: Name 3 objects. 1 point for each object recalled (3): 3 07/09/2012 None Full Exam - General 1994 Neurologic mental status Attention/calculation: _ Serial 7's or "world" spelled backward (5): 5 07/09/2012 None Full Exam - General 1995 Neurologic mental status Recall: Recall of objects mentioned above after 5 min. (3): 1 07/09/2012 None Full Exam - General 1995 Neurologic [...] happy 07/09/2012 None Full Exam - General 1995 Constitutional general appearance Overall: well developed 07/09/2012 None Full Exam - General 1994 Constitutional general appearance Overall: in no acute distress 07/09/2012 None Full Exam - General 1994 Constitutional general appearance Overall: well nourished 07/09/2012 None Full Exam - General 1994 Eyes pupils and irises Overall: pupils equal, round, reactive to light and accomodation 07/09/2012 None Full Exam - General 1995 [...] midsystolic 05/19/2012 None Full Exam - General 1994 Abdomen abdominal exam Overall: no tenderness 05/19/2012 None Full Exam - General 1994 Abdomen [...] affect 05/19/2012 None Full Exam - General 1994 Psychiatric mood and affect Mood: happy 05/19/2012 None Full Exam - General 1994 [...] masses 04/28/2012 None Full Exam - General 1994 [...] Procedure Codes Date DESTRUCT PREMALG LESION CPT-4: 05030 11/07/2016 ADMIN INFLUENZA VIRUS VAC CPT-4: G0008 03/25/2015 FLU VACC 4 CHANTELLE 3 YRS PLUS IM Formatting Model/CDA Sections, Assigned to SNOMED CT: 72070805 CPT-4: 23799Matexap 03/25/2015 ADMIN INFLUENZA VIRUS VAC Assigned to CPT-4: E6335Tuovvww 04/23/2014 FLU VAC NO PRSV 4 CHANTELLE 3 YRS+ CPT-4: 32228 04/23/2014 TRIAMCINOLONE ACET INJ NOS CPT-4: J3301 05/20/2013 THER/PROPH/DIAG INJ SC/IM CPT-4: 44631 05/20/2013 PRESCRIP TRANSMIT VIA ERX SY CPT-4: G8553 05/20/2013 URINALYSIS NONAUTO W/O SCOPE CPT-4: 09260 04/30/2013 THER/PROPH/DIAG INJ SC/IM CPT-4: 75944 04/16/2013 ROCEPHIN, PER 250 MG CPT-4: J0696 04/16/2013 PRESCRIP TRANSMIT VIA ERX SY CPT-4: G8553 04/16/2013 ADMIN INFLUENZA VIRUS VAC CPT-4: G0008 03/10/2013 FLULAVAL VACC, 3 YRS & >, IM CPT-4: Q2036 03/10/2013 PRESCRIP TRANSMIT VIA ERX SY CPT-4: G8553 12/02/2012 TRIAMCINOLONE ACET INJ NOS CPT-4: J3301 10/08/2012 INJ TRIGGER POINT 1/2 MUSCL CPT-4: 56371 10/08/2012 ROUTINE VENIPUNCTURE CPT-4: 59687 08/27/2012 DRAIN/INJECT JOINT/BURSA CPT-4: 60594 07/09/2012 TRIAMCINOLONE ACET INJ NOS CPT-4: J3301 07/09/2012 ROUTINE VENIPUNCTURE CPT-4: 26217 05/13/2012 ROUTINE VENIPUNCTURE CPT-4: 43396 04/30/2012 PRESCRIP TRANSMIT VIA ERX SY CPT-4: G8553 04/28/2012 Vital Signs Date Vital 02/14/2018 Blood Pressure 1: 130/78 Code : 8480-6 BMI: 24.6 Code : 52234-7 Heart Rate 1 : 64 bpm Height: 5'1" SpO2: 96% Weight: 130 lbs 12/09/2017 BMI: 24.0 Code: 27266-2 Height: 5'1" Weight: 127 lbs 11/14/2017 Blood Pressure 1: 140/74 Code : 8480-6 Heart Rate 1: 78 bpm SpO2: 94% Weight: 127 lbs 08/13/2017 Blood Pressure 1: 120/76 Code : 8480-6 BMI: 24.9 Code : 48744-6 Heart Rate 1 : 76 bpm Height: 5'1" SpO2: 96% Weight: 132 lbs 05/21/2017 Blood Pressure 1: 132/80 Code : 8480-6 BMI: 26.1 Code : 59408-8 Heart Rate 1 : 61 bpm Height: 5'1" SpO2: 92% Weight: 138 lbs 05/07/2017 Blood Pressure 1: 128/70 Code : 8480-6 BMI: 25.9 Code : 16036-4 Heart Rate 1 : 72 bpm Height: 5'1" SpO2: 96% Weight: 137 lbs 01/08/2017 Blood Pressure 1: 136/82 Code : 8480-6 BMI: 25.5 Code : 63227-6 Heart Rate 1 : 75 bpm Height: 5'1" SpO2: 96% Weight: 135 lbs 01/07/2017 Blood Pressure 1: 142/86 Code : 8480-6 BMI: 25.5 Code : 78097-2 Heart Rate 1 : 75 bpm Height: 5'1" SpO2: 95% Weight: 135 lbs 11/07/2016 Blood Pressure 1: 120/80 Code : 8480-6 BMI: 25.5 Code : 81393-1 Heart Rate 1 : 83 bpm Height: 5'1" SpO2: 97% Weight: 135 lbs 07/26/2016 Blood Pressure 1: 140/80 Code : 8480-6 BMI: 27.0 Code : 83495-9 Heart Rate 1 : 68 bpm Height: 5'1" SpO2: 94% Weight: 143 lbs 04/25/2016 Blood Pressure 1: 128/82 Code : 8480-6 BMI: 28.2 Code : 05573-9 Heart Rate 1 : 71 bpm Height: 5'1" SpO2: 98% Weight: 149 lbs 10/04/2015 Blood Pressure 1: 140/80 Code : 8480-6 BMI: 27.8 Code : 41544-4 Heart Rate 1 : 77 bpm Height: 5'1" SpO2: 96% Weight: 147 lbs 06/29/2015 Blood Pressure 1: 134/70 Code : 8480-6 BMI: 26.8 Code : 23467-4 Heart Rate 1 : 68 bpm Height: 5'1" SpO2: 95% Weight: 142 lbs 02/17/2015 Blood Pressure 1: 128/80 Code : 8480-6 Heart Rate 1: 85 bpm Height: 5'1" SpO2: 96% Weight: 02/07/2015 Blood Pressure 1: 130/68 Code : 8480-6 BMI: 28.7 Code : 96466-1 Heart Rate 1 : 80 bpm Height: 5'1" SpO2: 95% Weight: 152 lbs 03/30/2014 Blood Pressure 1: 142/80 Code : 8480-6 BMI: 27.8 Code : 41450-6 Heart Rate 1 : 83 bpm Height: 5'1" SpO2: 95% Weight: 147 lbs 12/24/2013 Blood Pressure 1: 120/80 Code : 8480-6 BMI: 27.8 Code : 64114-1 Heart Rate 1 : 76 bpm Height: 5'1" Weight: 147 lbs 12/01/2013 Blood Pressure 1: 138/82 Code : 8480-6 BMI: 28.0 Code : 00958-6 Heart Rate 1 : 76 bpm Height: 5'1" SpO2: 91% Weight: 148 lbs 11/27/2013 Blood Pressure 1: 140/90 Code : 8480-6 BMI: 28.0 Code : 42644-0 Heart Rate 1 : 76 bpm Height: 5'1" SpO2: 95% Weight: 148 lbs 08/27/2013 Blood Pressure 1: 132/76 Code : 8480-6 BMI: 26.5 Code : 21678-5 Heart Rate 1 : 72 bpm Height: 5'1" Weight: 140 lbs 05/20/2013 Blood Pressure 1: 122/80 Code : 8480-6 BMI: 26.8 Code : 87416-9 Heart Rate 1 : 80 bpm Height: 5'1" SpO2: 98% Temperature: 37.3 (C) / 99.2 (F) Weight: 142 lbs 04/30/2013 Blood Pressure 1: 140/80 Code : 8480-6 BMI: 27.0 Code : 70293-0 Heart Rate 1 : 73 bpm Height: 5'1" SpO2: 93% Temperature: 37.3 (C) / 99.1 (F) Weight: 143 lbs 04/16/2013 Blood Pressure 1: 100/64 Code : 8480-6 BMI: 27.2 Code : 11070-6 Heart Rate 1 : 80 bpm Height: 5'1" SpO2: 97% Temperature: 37.4 (C) / 99.3 (F) Weight: 144 lbs 03/10/2013 Blood Pressure 1: 132/82 Code : 8480-6 BMI: 27.2 Code : 37533-8 Heart Rate 1 : 80 bpm Height: 5'1" Weight: 144 lbs 12/08/2012 Blood Pressure 1: 144/80 Code : 8480-6 Heart Rate 1: 76 bpm Weight: 12/02/2012 Blood Pressure 1: 118/66 Code : 8480-6 BMI: 27.8 Code : 08253-2 Heart Rate 1 : 88 bpm Height: 5'1" Weight: 147 lbs 10/08/2012 Blood Pressure 1: 116/64 Code : 8480-6 BMI: 27.8 Code : 37438-5 Heart Rate 1 : 80 bpm Height: 5'1" Weight: 147 lbs 08/27/2012 Blood Pressure 1: 122/78 Code : 8480-6 BMI: 28.3 Code : 35140-9 Heart Rate 1 : 84 bpm Height: 5'1" Weight: 150 lbs 07/09/2012 Blood Pressure 1: 136/88 Code : 8480-6 Heart Rate 1: 84 bpm Weight: 150 lbs 05/19/2012 Blood Pressure 1: 124/74 Code : 8480-6 Heart Rate 1: 72 bpm Respiratory Rate : 16 bpm Weight: 152 lbs 04/28/2012 Blood Pressure 1: 130/80 Code : 8480-6 BMI: 29.1 Code : 32437-3 Heart Rate 1 : 56 bpm Height: 5'1" Respiratory Rate: 16 bpm Weight: 154 lbs Functional Status No Functional Status data History of Present Illness Symptom Name Status Result Effective Date Notes lower leg pain Location on the left [...] data Encounters Encounter Performer Location Codes Date ([id number]) 79459 EST. 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 CPT-4: 30687 02/14/2018 ([id number]) Miscellaneous no charge Diagnosis: Abnormal weight loss[ICD10: R63.4] Sarah Gillis MD, [facility] CPT-4: 23932 12/09/2017 [id number] EST. 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 CPT-4: 50389 11/14/2017 [id number] EST. 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 CPT-4 : 03707 08/13/2017 [id number] EST. 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 CPT-4: 11466 05/21/2017 55085 EST. 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 CPT-4: 26291 05/07/2017 ([id number]) 69277 EST. PATIENT, LEVEL IV Diagnosis: Essential (primary) hypertension[ICD10: I10] Diagnosis: Urinary tract infection, site not specified[ICD10: N39.0] Diagnosis: Mixed hyperlipidemia[ICD10: E78.2] Sarah Gillis MD, [facility] CPT-4: 64060 01/08/2017 46262 EST. 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 CPT-4: 14672 01/07/2017 ([id number]) 51054 EST. PATIENT, LEVEL IV Diagnosis: Essential (primary) hypertension[ICD10: I10] Diagnosis: Mixed hyperlipidemia[ICD10: E78.2] Diagnosis: Actinic keratosis[ICD10: L57.0] Sarah Gillis MD, [facility] CPT- 4: 57174 11/07/2016 ([id number]) 32609 EST. PATIENT, LEVEL IV Diagnosis: Essential (primary) hypertension[ICD10: I10] Diagnosis: Mixed hyperlipidemia[ICD10: E78.2] Sarah Gillis MD, [facility] CPT-4: 63948 07/26/2016 ([id number]) 97322 EST. PATIENT, LEVEL IV Diagnosis: Essential (primary) hypertension[ICD10: I10] Diagnosis: Other long-term (current) drug therapy[ICD10: Z79.899] Diagnosis: Encounter for therapeutic drug level monitoring[ICD10: Z51.81] [facility] CPT-4: 34331 04/25/2016 ([id number]) 32855 EST. PATIENT, LEVEL IV Diagnosis: Essential (primary) hypertension[ICD10: I10] Diagnosis: Cervicalgia[ICD10: M54.2] Diagnosis: Cervical disc disorder, unspecified, unspecified cervical region[ ICD10: M50.90] Sarah Gillis MD, [facility] CPT-4: 53565 10/04/2015 ([id number]) 98702 EST. PATIENT, LEVEL IV Diagnosis: Encounter for therapeutic drug level monitoring[ICD10: Z51.81] Diagnosis: Mixed hyperlipidemia[ICD10: E78.2] Diagnosis: Essential (primary) hypertension[ICD10: I10] Diagnosis: Localized edema[ICD10: R60.0] [facility] CPT- 4: 39950 06/29/2015 ([id number]) 80111 EST. PATIENT, LEVEL IV Diagnosis: ESSENTIAL HYPERTENSION[ICD9: 401.9] Diagnosis: Osteoarthritis[ICD9: 715.90] Diagnosis: Left hip pain[ICD9: 719.45] Diagnosis: EDEMA[ICD9: 782.3] Diagnosis: ENCNTR LONG-ANTICOAG USE[ICD9: V58.61] [facility] CPT-4: 99397 02/17/2015 ([id number]) 27126 EST. PATIENT, LEVEL IV Diagnosis: ESSENTIAL HYPERTENSION[ICD9: 401.9] Diagnosis: Osteoarthritis[ICD9: 715.90] Diagnosis: EDEMA[ICD9: 782.3] Diagnosis: ENCNTR LONG-ANTICOAG USE[ICD9: V58.61] Diagnosis: Left hip pain[ICD9: 719.45] Katy Gillis MD, [facility] CPT-4: 80428 02/07/2015 ([id number]) 57728 EST. PATIENT, LEVEL IV Diagnosis: ESSENTIAL HYPERTENSION[ICD9: 401.9] Diagnosis: Osteoarthritis[ICD9: 715.90] Diagnosis: Hip pain[ICD9: 719.45] Sarah Gillis MD [facility] CPT-4: 07050 03/30/2014 ([id number]) 49246 EST. PATIENT, LEVEL III Diagnosis: ESSENTIAL HYPERTENSION[ICD9: 401.9] Diagnosis: Anticoagulant long-term use[ICD9: V58.61] Diagnosis: SCIATICA[ICD9: 724.3] Sarah Gillis MD [facility] CPT-4: 54732 12/24/2013 ([id number]) 46554 EST. PATIENT, LEVEL III Diagnosis: Sacroiliitis[ICD9: 720.2] Diagnosis: SCIATICA[ICD9: 724.3] Sarah Gillis MD [facility] CPT-4: 00815 12/01/2013 ([id number]) 28868 EST. PATIENT, LEVEL III Diagnosis: EDEMA[ICD9: 782.3] Diagnosis: LONG-TERM USE ANTICOAGUL[ICD9: V58.61] Sarah Gillis MD [facility] CPT-4: 70047 11/27/2013 ([id number]) 55876 EST. PATIENT, LEVEL III Diagnosis: ESSENTIAL HYPERTENSION[SNOMED: 91921637] Sarah Gillis MD [facility] CPT-4: 85871 08/27/2013 ([id number]) 38912 EST. PATIENT, LEVEL III Diagnosis: Acute bronchitis[ICD9: 466.0] Diagnosis: COUGH[ICD9: 786.2] Sarah Gillis MD [facility] CPT-4: 49384 05/20/2013 ([id number]) 62245 EST. PATIENT, LEVEL III Diagnosis: ACUTE BRONCHITIS[ICD9: 466.0] Diagnosis: Memory loss[ICD9: 780.93] Sarah Gillis MD [facility] CPT-4: 46677 04/30/2013 ([id number]) 43267 EST. PATIENT, LEVEL III Diagnosis: ACUTE BRONCHITIS[ICD9: 466.0] Diagnosis: Cough[ICD9: 786.2] Sarah Gillis MD [facility] CPT-4: 89194 04/16/2013 ([id number]) 44519 EST. PATIENT, LEVEL III Diagnosis: ESSENTIAL HYPERTENSION[SNOMED: 43485655] Sarah Gillis MD [facility] CPT-4: 20813 03/10/2013 ([id number]) Miscellaneous no charge Diagnosis: BLISTER FOOT/TOE[ICD9: 917.2] Sarah Gillis MD [facility] CPT- 4: 79339 12/08/2012 ([id number]) 45347 EST. PATIENT, LEVEL III Diagnosis: BLISTER FOOT/TOE[ICD9: 917.2] Diagnosis: CELLULITIS OF FOOT[ICD9: 682.7] Diagnosis: Osteoarthritis[ICD9: 715.90] Sarah Gillis MD [facility] CPT- 4: 59116 12/02/2012 ([id number]) 83883 EST. PATIENT, LEVEL III Diagnosis: ESSENTIAL HYPERTENSION[SNOMED: 63218535] Sarah Gillis MD [facility] CPT-4: 06289 10/08/2012 ([id number]) 28105 EST. PATIENT, LEVEL III Diagnosis: Bruising[ICD9: 924.9] Diagnosis: ENCNTR LONG-ANTICOAG USE[ICD9: V58.61] Sarah Gillis MD [facility] CPT-4: 04508 08/27/2012 ([id number]) 04661 EST. PATIENT, LEVEL III Diagnosis: ESSENTIAL HYPERTENSION[SNOMED: 04145902] Diagnosis: Sacroiliitis[ICD9: 720.2] Sarah Gillis MD [facility] CPT-4: 52491 07/09/2012 ([id number]) 65949 EST. 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 CPT-4: 36151 05/19/2012 ([id number]) OFFICE VISIT, NEW - LEVEL 4 Diagnosis: ESSENTIAL HYPERTENSION[SNOMED: 96688799] Diagnosis: Iliotibial band syndrome[ICD9: 728.89] Diagnosis: Other bursitis, not elsewhere classified, left hip[ICD9: 726.5] Sarah Gillis MD, [facility] CPT-4: 48492 04/28/2012 Plan of Care Planned Activity Notes Codes Status Date Appointment: Katy Shore WPtel: [address] [place], [place] [phone] (15 min) Moderate 05/06/2018 Visit Plan: Hypertension [...] in this. 02/14/2018 Appointment: [phone] [phone] [place] (15 min) Moderate 02/14/2018 Patient Education: Patient [...] effectiveness. 11/14/2017 Appointment: [phone] [facility] [place] (30 min) Complex 11/14/2017 Patient Education: Patient [...] for effectiveness. 08/13/2017 Appointment: [facility] [phone] [facility] [place] (30 min) Complex 08/13/2017 Patient Education: Patient [...] for effectiveness. 05/21/2017 Appointment: Mary Gonzalez WPtel: [facility] (30 min) Complex 05/21/2017 Patient Education: Patient [...] effectiveness. 05/07/2017 Appointment: Mary Gonzalez WPtel: [phone] [facility] (30 min) Complex 05/07/2017 Patient Education: Patient Medication Summary Completed 05/07/2017 Appointment: Sarah Gillis WPtel: [phone] [facility] (15 min) Moderate 02/05/2017 Visit Plan: Hypertension [...] weeks 01/08/2017 Appointment: Sarah Gillis WPtel: [phone] [facility] (15 min) Moderate 01/08/2017 Patient Education: Patient [...] effectiveness. 01/07/2017 Appointment: Mary Gonzalez WPtel: [phone] [facility] [place] (10 min) Simple 01/07/2017 Patient Education: Patient [...] to medications. 11/07/2016 [facility]ment[phone] (15 min) Moderate 11/07/2016 Patient Education: Patient Medication Summary Completed 11/07/2016 Appointment: Sarah Gillis WPtel: [phone] [facility] (15 min) Moderate 10/24/2016 Visit Plan: Hypertension [...] to medications. 07/26/2016 Appointment: Sarah Gillis WPtel: [phone] [facility] (15 min) Moderate 07/26/2016 Patient Education: Patient [...] supportive care. 04/25/2016 Appointment: Sarah Gillis WPtel: [facility] (15 min) Moderate 04/25/2016 Patient Education: Patient Medication Summary Completed 04/25/2016 Appointment: Sarah Gillis WPtel: [phone] [facility] (30 min) Complex 04/03/2016 Visit Plan: Hypertension [...] Education: Patient Medication Summary Completed 10/04/2015 Appointment: [phone] [facility] (30 min) Complex 09/28/2015 Patient Education: Patient [...] medication - will monitor symptoms. 06/29/2015 Appointment: [phone] (30 min) Complex 06/29/2015 Patient Education: [...] Hypertension Completed 02/07/2015 Appointment: Sarah Gillis WPtel: [phone] [facility] Follow up 06/28/2014 Appointment: Injection 04/23/2014 Patient [...] DAILY. 03/30/2014 Appointment: Sarah Gillis WPtel: [phone] [facility] Follow up 03/30/2014 Patient Education: Patient Medication [...] at home. 12/24/2013 Appointment: Sarah Gillis WPtel: [phone] [facility] Follow up 12/24/2013 Patient Education: Patient Medication [...] and 3.5. 11/27/2013 Appointment: Katy Shore WPtel: [phone] [phone] [place] [address] Other 11/27/2013 Patient Education: Patient Medication Summary Completed 11/27/2013 Visit Plan: Hypertension - well controlled - continue with current medications, continue with no added salt diet. Pt has been encouraged to exercise daily. The pt has been advised to call the office if there are any acute concerns about change in blood pressure readings at home. 08/27/2013 Appointment: Sarah Gillis WPtel: [phone] [facility] Follow up 08/27/2013 Patient Education: Patient Medication [...] of inflammation 05/20/2013 Appointment: Sarah Gillis WPtel: [phone] [facility] Sick 05/20/2013 Patient Education: Patient Medication Summary [...] at home. 03/10/2013 Appointment: Sarah Gillis WPtel: [address] [place], [place] [phone] Follow up 03/10/2013 Patient Education: Patient Medication Summary Completed 03/10/2013 Patient Education: Hypertension Completed 03/10/2013 Appointment: Sarah Gillis WPtel: [address] [place], [place] [phone] Follow up 12/17/2012 Visit Plan: Wound care to lesion -neosporin, call if worsening symptoms - finish antibotics 12/08/2012 Appointment: Sarah Gillis WPtel: [address] [place], [place] [phone] [facility] 12/08/2012 Patient Education: Patient Medication Summary Completed 12/08/2012 Visit Plan: Cellulitis - continue with oral antibiotics as previously directed, return to clinic as previously directed, call for acute change in symptoms, worsening redness, warmth, discharge. on 2nd digit right fot debrided and dressing placed over the wound. Arthritis- occasionally uncontrolled symptoms- Use tylenol for break through pain symptoms. 12/02/2012 Appointment: Sarah Gillis WPtel: [address] [place], [place] [phone] Follow up 12/02/2012 Patient Education: Patient Medication [...] injection today. 10/08/2012 Appointment: Sarah Gillis WPtel: [facility] Follow up 10/08/2012 Patient Education: Patient Medication Summary Completed 10/08/2012 Patient Education: Hypertension Completed 10/08/2012 Visit Plan: Abnormal bruising-long-term coumadin therapy- plan to check PT/INR today in the office and continue to monitor symptoms- instructed patient to call if bleeding/bruising continues or if she becomes weak , dizzy, light headed, etc. Patient and verbalized understanding of plan. 08/27/2012 Appointment: Katy Shore WPtel: [id number] Other 08/27/2012 Patient Education: Patient Medication Summary Completed 08/27/2012 Appointment: Sarah Gillis WPtel: [facility] Follow up 07/14/2012 Visit Plan: Hypertension - [...] they worsen. 07/09/2012 Appointment: Sarah Gillis WPtel: [facility] Other 07/09/2012 Patient Education: Patient Medication Summary [...] times daily. 05/19/2012 Appointment: Sarah Gillis WPtel: [facility] Follow up 05/19/2012 Patient Education: Hypertension Completed 05/19/2012 Patient Education: Patient Medication Summary Completed 05/19/2012 Appointment: Sarah Gillis WPtel: [phone] [facility] Lab Draw 05/13/2012 Patient Education: Patient Medication [...] pain symptoms. 04/28/2012 Appointment: Sarah Gillis WPtel: [address] [place], [place] [phone] New Patient 04/28/2012 Patient Education: Patient Medication Summary Completed 04/28/2012 Patient Education: High Blood Pressure: Essential Hypertension Completed 2011 Appointment: Sarah Gillis WPtel: [facility] [facility]/ New Patient 10/15/2011 Instructions Comment . Bronchitis - Pt has been diagnosed [...] to closely monitor the medications for effectiveness. GET TIGER BALM FOR YOUR HIP AND [...] Arthritis - continue with supportive care. . Bronchitis - acute case of bronchitis identified. Pt has been given antibiotics, breathing treatments as appropriate, and pt has been instructed to call if symptoms are not improved, or if symptoms acutely worsen. . Hypertension - well controlled - [...] in blood pressure readings at home. . Sacroilitis-sciatica - back exercises discussed with the patient, pt to continue with antiinflammatories. Pt is to call if the symptoms do not improve or if they worsen. Offered injection today in the office-patient declines but will call if pain worsens CHANGE DRESSING ON SATURDAY AND RETURN TO [...] behind left ear -re-eval in 3 weeks Stop the bisoprolol/hctz and the hydrochlorothiazide. START [...] PT-patient and are not interested in this. Hip pain - pt to use VOLTAREN [...] to use VOLTAREN GEL THREE TIMES DAILY. Check INR today-we'll call you with the results tomorrow. Keep your regular follow up appointment in September. Call with any questions or concerns. . Abnormal bruising-long-term coumadin therapy-plan to check PT/INR today in [...]
--- OUTSIDE RECORDS SUMMARY | 2018-08-26 10:37 | XMS REPORT | CCD ---
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 Name Role Phone PP Unavailable CCM Unavailable Summary Purpose Interface Exchange Insurance Providers Payer name Policy type / Coverage type Covered republican ID Effective Begin Date Effective End Date WPS Medicare Part B Medicare Part B [id number] 2013 Unknown [facility] Medicare Part B [id number] 2013 Unknown Family history Brother Diagnosis Age [...] 2 1 in 2010, 1 lives in [place] 11/07/2016 Marital status Unknown 04/28/2012 Employment Unknown Retired 04/28/[address]: 7396129 Quit over 10 years ago 04/28/[address]: 509200493 Never drinks alcohol 04/28/2012 Allergies, Adverse Reactions, [...] 788.1 ICD-10: R30.0 Active 01/07/2017 Unknown Other prison (current) drug therapy ICD-9: V58.69 ICD-10: Z79.899 [...] ICD-9: 788.1 ICD-10: R30.0 01/07/2017 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 ICD-10: Z79.899 [...] Start Date Stop Date Status Fill Instructions Coumadin 5 mg tablet RxNorm: 358514 1 Tablet(s) PO daily except 1/2 Tab on Sat, Sat07/21/2018 01/18/2019 Active hydrochlorothiazide 12.5 mg tablet RxNorm: 081596 1 Tablet(s) PO daily 07/11/2018 02/05/2019 Active Depakote 125 mg tablet,delayed release RxNorm: 8167686 Tablet(s) Tablet(s) 1 Tablet(s) PO QPM 05/16/2018 12/11/2018 Active PLEASE SEND REFILL REQUESTS ELECTRONICALLY pravastatin 40 mg tablet RxNorm: 177123 TAKE ONE TABLET BY MOUTH EVERY DAY 03/17/2018 02/09/2019 Active Generic For:*PRAVACHOL 40 MG TABLET 03/17/2018 8:03:02 AM amlodipine 5 mg tablet RxNorm: 490014 TAKE ONE (1) TABLET BY MOUTH DAILY 02/18/2018 02/12/2019 Active Generic For:NORVASC 5 MG TABLET 02/18/2018 10:12:27 AM Vitamin D3 5,000 unit tablet RxNorm: 266916 1 Tablet(s) PO daily 02/14/2018 08/12/2018 Active may give OTC bottle Vitamin D3 5,000 unit tablet RxNorm: 264260 1 Tablet(s) PO daily 02/14/2018 02/13/2018 Inactive Vitamin D2 50,000 unit capsule RxNorm: 7980971 1 Capsule(s) PO QW 02/14/2018 02/13/2018 Inactive Vitamin D2 50,000 unit capsule RxNorm: 1308864 1 Capsule(s) PO QW x8 weeks then stop 02/14/2018 04/14/2018 Inactive amlodipine 5 mg tablet RxNorm: 675950 1 Tablet(s) PO daily 02/17/2018 Inactive Generic For:NORVASC 5 MG TABLET REFILL REQUEST 08/27/2016 10:47:17 AM Coumadin 5 mg tablet RxNorm: 974908 1 Tablet(s) PO daily except 1/2 Tab on Sat, Sat12/16/2017 06/15/2018 Inactive hydrochlorothiazide 12.5 mg tablet RxNorm: 984085 1 Tablet(s) PO daily 12/16/2017 07/10/2018 Inactive hydrochlorothiazide 12.5 mg tablet RxNorm: 741832 Tablet(s) Tablet(s) 1 Tablet(s) PO daily 11/18/2017 12/15/2017 Inactive PLEASE SEND REFILL REQUESTS ELECTRONICALLY Depakote 125 mg tablet,delayed release RxNorm: 0825661 Tablet(s) Tablet(s) 1 Tablet(s) PO QPM 10/17/2017 05/14/2018 Inactive PLEASE SEND REFILL REQUESTS ELECTRONICALLY hydrochlorothiazide 12.5 mg tablet RxNorm: 107870 Tablet(s) Tablet(s) 1 Tablet(s) PO daily 10/17/2017 11/17/2017 Inactive PLEASE SEND REFILL REQUESTS ELECTRONICALLY Coumadin 5 mg tablet RxNorm: 464873 1 Tablet(s) daily TAKE 1 TABLET BY MOUTH DAILY 08/15/2017 12/15/2017 Inactive Coumadin 5 mg tablet RxNorm: 031709 Tablet(s) TAKE 1 TABLET BY MOUTH DAILY 06/24/2017 08/14/2017 Inactive pravastatin 40 mg tablet RxNorm: 955328 Tablet(s) TAKE ONE TABLET BY MOUTH EVERY DAY 05/27/2017 03/16/2018 Inactive Voltaren 1 % topical gel RxNorm: 373514 4 Gram(s) TOP QID 05/2106/19/2017 Inactive Depakote 125 mg tablet,delayed release RxNorm: 6553108 Tablet(s) 1 Tablet(s) PO QPM 04/22/2017 10/16/2017 Inactive hydrochlorothiazide 12.5 mg tablet RxNorm: 684029 Tablet(s) 1 Tablet(s) PO daily 03/22/2017 10/16/2017 Inactive amlodipine 5 mg tablet RxNorm: 443965 1 Tablet(s) PO daily 02/12/2018 Inactive Generic For:NORVASC 5 MG TABLET REFILL REQUEST 08/27/2016 10:47:17 AM cephalexin 500 mg tablet RxNorm: 355508 1 Tablet(s) PO TID 01/17/2017 Inactive cephalexin 500 mg tablet RxNorm: 541083 1 Tablet(s) PO TID 01/07/2017 Inactive Coumadin 5 mg tablet RxNorm: 897410 TAKE 1 TABLET BY MOUTH DAILY EXCEPT 1/2 TABLET ON SATURDAY AND Saturday12/26/2016 06/23/2017 Inactive Generic For:COUMADIN 5MG TAB 12/26/2016 9:17:49 AM N O T I C E Last quantity doesn't match original quantity Depakote 125 mg tablet,delayed release RxNorm: 4222198 Tablet(s) 1 Tablet(s) PO QPM 10/25/2016 04/21/2017 Inactive Coumadin 5 mg tablet RxNorm: 178799 TAKE 1 TABLET BY MOUTH DAILY EXCEPT 1/2 TABLET ON SATURDAY AND Saturday09/27/2016 12/25/2016 Inactive Generic For:COUMADIN 5MG TAB N O T I C E Last quantity doesn't match original quantity REFILL REQUEST 09/27/2016 9:43:11 AM Coumadin 4 mg tablet RxNorm: 621200 Tablet(s) as doctor directed TAKE 1 TABLET 4 days per week 09/27/2016 04/24/2017 Inactive Generic For:COUMADIN 4MG TAB amlodipine 5 mg tablet RxNorm: 931704 TAKE 1 TABLET BY MOUTH DAILY 08/27/2016 09/26/2016 Inactive Generic For:NORVASC 5 MG TABLET REFILL REQUEST 08/27/2016 10:47: 17 AM hydrochlorothiazide 12.5 mg tablet RxNorm: 837179 Tablet(s) 1 Tablet(s) PO daily 08/27/2016 03/21/2017 Inactive pravastatin 40 mg tablet RxNorm: 855705 Tablet(s) TAKE ONE TABLET BY MOUTH EVERY DAY 06/29/2016 05/24/2017 Inactive Coumadin 5 mg tablet RxNorm: 797027 1 Tablet(s) PO daily except 1/2 tab on , 06/14/2016 09/26/2016 Inactive Coumadin 5 mg tablet RxNorm: 558747 1 Tablet(s) PO daily except 1/2 tab on Tu, 06/12/2016 12/08/2016 Inactive Depakote 125 mg tablet,delayed release RxNorm: 4813577 1 Tablet(s) PO QPM 04/30/2016 10/24/2016 Inactive amlodipine 5 mg tablet RxNorm: 755548 Tablet(s) TAKE ONE TABLET BY MOUTH EVERY DAY 03/06/2016 08/26/2016 Inactive Generic For:NORVASC 5 MG TABLET 2015 9:02 :57 AM N O T I C E Last quantity doesn't match original quantity hydrochlorothiazide 12.5 mg tablet RxNorm: 435180 1 Tablet(s) PO daily 02/01/2016 08/26/2016 Inactive Coumadin 5 mg tablet RxNorm: 282763 1 Tablet(s) PO daily except 1/2 tab on Tues, Sat 12/26/2015 06/11/2016 Inactive Coumadin 5 mg tablet RxNorm: 856867 TAKE 1 TABLET BY MOUTH 3 DAYS PER WEEK (SATLAURA, SAT) 11/10/2015 12/25/2015 Inactive Generic For:COUMADIN 5MG TAB PT SAYS TAKING DIFFERENT NOW...WE NEED NEW RX PLEASE Coumadin 5 mg tablet RxNorm: 718785 Tablet(s) TAKE 1 TABLET BY MOUTH 5 DAYS PER WEEK Sun Sat11/04/201511/08 Inactive Generic For:COUMADIN 5MG TAB 10/04/2015 10:19:46 AM Depakote 125 mg tablet,delayed release RxNorm: 9511057 1 Tablet(s) PO QPM 11/04/2015 04/29/2016 Inactive Coumadin 5 mg tablet RxNorm: 369582 TAKE 1 TABLET BY MOUTH 3 DAYS PER WEEK (SATLAURA, SAT) 10/04/2015 11/03/2015 Inactive Generic For:COUMADIN 5MG TAB 10/04/2015 10:19:46 AM amlodipine 5 mg tablet RxNorm: 371184 Tablet(s) TAKE ONE TABLET BY MOUTH EVERY DAY 09/12/2015 03/05/2016 Inactive Generic For:NORVASC 5 MG TABLET 2015 9:02 :57 AM N O T I C E Last quantity doesn't match original quantity Coumadin 5 mg tablet RxNorm: 193699 1 Tablet(s) daily 201510/03/2015 Inactive Voltaren 1 % topical gel RxNorm: 986994 4 Gram(s) TOP QID 06/2904/24/2016 Inactive Depakote 125 mg tablet,delayed release RxNorm: 6648431 1 Tablet(s) PO QPM 06/29/2015 10/26/2015 Inactive hydrochlorothiazide 12.5 mg tablet RxNorm: 839117 1 Tablet(s) PO daily 06/29/2015 01/24/2016 Inactive Depakote 125 mg tablet,delayed release RxNorm: 2258471 1 Tablet(s) PO QPM 06/29/2015 06/28/2015 Inactive pravastatin 40 mg tablet RxNorm: 039319 Tablet(s) TAKE ONE TABLET BY MOUTH EVERY DAY 06/29/2015 06/28/2016 Inactive Generic For:*PRAVACHOL 40 MG TABLET Coumadin 5 mg tablet RxNorm: 375851 1 Tablet(s) PO LAURA CLARKE, SAT 3 days per week 05/09/2015 06/30/2015 Inactive take 4mg on sun sat amlodipine 5 mg tablet RxNorm: 802134 TAKE ONE TABLET BY MOUTH EVERY DAY 2015 09/06/2015 Inactive Generic For:NORVASC 5 MG TABLET 2015 9:02:57 AM N O T I C E Last quantity doesn't match original quantity Coumadin 5 mg tablet RxNorm: 545745 1 Tablet(s) PO LAURA CLARKE, SAT 3 days per week 11/15/2014 05/08/2015 Inactive take 4mg on sun sat Coumadin 4 mg tablet RxNorm: 097129 Tablet(s) as doctor directed TAKE 1 TABLET 4 days per week 11/15/2014 06/12/2015 Inactive Generic For:COUMADIN 4MG TAB Coumadin 5 mg tablet RxNorm: 680715 1 Tablet(s) PO LAURA CLARKE, 10/27/2014 11/14/2014 Inactive TAKE 4MG ON SUN Sat [SAVINGS FOR NON-COVERED DRUGS -- BIN: 858029, PCN: ASPROD1, Group: XXXXX, ID# [id number], Questions: . THIS IS NOT INSURANCE.] Coumadin 5 mg tablet RxNorm: 159180 1 Tablet(s) PO LAURA CLARKE, 10/27/2014 10/26/2014 Inactive amlodipine 5 mg tablet RxNorm: 208267 1 Tablet(s) PO daily 03/10/2015 Inactive Generic For:NORVASC 5 MG TABLET Generic For:NORVASC 5 MG TABLET 2012 8:54:53 AM pravastatin 40 mg tablet RxNorm: 401704 TAKE ONE TABLET BY MOUTH EVERY DAY 08/12/2014 06/28/2015 Inactive Generic For:*PRAVACHOL 40 MG TABLET Coumadin 4 mg tablet RxNorm: 070436 TAKE 1 TABLET BY MOUTH DAILY 08/12/2014 11/14/2014 Inactive Generic For:COUMADIN 4MG TAB pravastatin 40 mg tablet RxNorm: 491090 1 Tablet(s) PO daily TAKE ONE TABLET BY MOUTH EVERY DAY 08/11/2014 08/11/2014 Inactive Generic For:*PRAVACHOL 40 MG TABLET Generic For:*PRAVACHOL 40 MG TABLET Coumadin 4 mg tablet RxNorm: 972028 Tablet(s) PO TAKE ONE TABLET BY MOUTH EVERY DAY 08/11/2014 08/11/2014 Inactive Generic For:COUMADIN 4MG TAB Generic For: COUMADIN 4MG TAB [SAVINGS FOR NON-COVERED DRUGS -- BIN:841684, PCN: ASPROD1, Group: XXXXX, ID# [id number], Questions: . THIS IS NOT INSURANCE.] amlodipine 5 mg tablet RxNorm: 924432 1 Tablet(s) daily 1 Tablet(s) PO daily TAKE ONE (1) TABLET BY MOUTH DAILY 05/12/2014 09/13/2014 Inactive Generic For:NORVASC 5 MG TABLET Generic For:NORVASC 5 MG TABLET 05/18/2013 8:54:53 AM amlodipine 5 mg tablet RxNorm: 565098 1 Tablet(s) PO daily TAKE ONE (1) TABLET BY MOUTH DAILY 01/14/2014 05/11/2014 Inactive Generic For:NORVASC 5 MG TABLET Generic For:NORVASC 5 MG TABLET 05/18/2013 8:54:53 AM Coumadin 4 mg tablet RxNorm: 809656 TAKE 1 TABLET BY MOUTH DAILY 01/14/2014 08/11/2014 Inactive Generic For:COUMADIN 4MG TAB amlodipine 5 mg tablet RxNorm: 770706 1 Tablet(s) PO daily TAKE ONE (1) TABLET BY MOUTH DAILY 01/14/2014 01/08/2015 Inactive Generic For:NORVASC 5 MG TABLET Generic For:NORVASC 5 MG TABLET 05/18/2013 8:54:53 AM amlodipine 5 mg tablet RxNorm: 668635 1 Tablet(s) PO daily TAKE ONE (1) TABLET BY MOUTH DAILY 09/18/2013 01/13/2014 Inactive Generic For:NORVASC 5 MG TABLET Generic For:NORVASC 5 MG TABLET 05/18/2013 8:54:53 AM Coumadin 4 mg tablet RxNorm: 253880 4mg daily Tablet(s) PO daily 07/30/2013 01/13/2014 Inactive Generic For:COUMADIN 4MG TAB pravastatin 40 mg tablet RxNorm: 340790 Tablet(s) PO TAKE ONE TABLET BY MOUTH EVERY DAY 07/20/2013 08/10/2014 Inactive Generic For:*PRAVACHOL 40 MG TABLET Generic For:*PRAVACHOL 40 MG TABLET Kenalog 40 mg/mL suspension for injection RxNorm: 6676074 Milliliter(s) Inj 05/20/2013 05/20/2013 Inactive azithromycin 500 mg tablet RxNorm: 9528315 1 Tablet(s) PO daily 05/20/2013 05/24/2013 Inactive amlodipine 5 mg tablet RxNorm: 570885 Tablet(s) PO TAKE ONE (1) TABLET BY MOUTH DAILY 05/18/2013 05/17/2013 Inactive Generic For:NORVASC 5 MG TABLET Generic For: NORVASC 5 MG TABLET 05/18/2013 8:54:53 AM amlodipine 5 mg tablet RxNorm: 742592 1 Tablet(s) PO daily TAKE ONE (1) TABLET BY MOUTH DAILY 05/18/2013 09/17/2013 Inactive Generic For:NORVASC 5 MG TABLET Generic For:NORVASC 5 MG TABLET 05/18/2013 8:54:53 AM Coumadin 4 mg tablet RxNorm: 057821 2mg wed 4 mg other Tablet(s) PO daily 04/28/2013 07/29/2013 Inactive Generic For:COUMADIN 4MG TAB Coumadin 4 mg tablet RxNorm: 147832 4mg daily Tablet(s) PO daily 04/16/2013 04/27/2013 Inactive Generic For:COUMADIN 4MG TAB Rocephin 500 mg solution for injection RxNorm: 823872 Inj 04/1604/16/2013 Inactive amoxicillin 500 mg tablet RxNorm: 678305 1 Tablet(s) PO TID 04/22/2013 Inactive Coumadin 4 mg tablet RxNorm: 960047 Tablet(s) PO TAKE ONE TABLET BY MOUTH EVERY DAY 04/16/2013 08/10/2014 Inactive Generic For:COUMADIN 4MG TAB Generic For: COUMADIN 4MG TAB Coumadin 4 mg tablet RxNorm: 125868 4mg daily Tablet(s) PO daily 03/18/2013 04/15/2013 Inactive Generic For:COUMADIN 4MG TAB Coumadin 4 mg tablet RxNorm: 817757 2mg on tuesdays, 4mg others Tablet(s) PO daily 03/10/2013 03/17/2013 Inactive Generic For:COUMADIN 4MG TAB Influenza Virus Vaccine 0.5 mL RxNorm: IM 03/10/2013 03/10/2013 Inactive amlodipine 5 mg tablet RxNorm: 396687 Tablet(s) PO TAKE ONE (1) TABLET BY MOUTH DAILY 01/22/2013 05/17/2013 Inactive Generic For:NORVASC 5 MG TABLET 01/22/2013 9: 42:13 AM cephalexin 500 mg tablet RxNorm: 295407 1 Tablet(s) PO TID 12/08/2012 Inactive amlodipine 5 mg tablet RxNorm: 945204 Tablet(s) PO TAKE ONE (1) TABLET BY MOUTH DAILY 09/22/2012 01/21/2013 Inactive Generic For:NORVASC 5 MG TABLET 09/20/2012 9: 10AM Nicole is wanting to filler picker Saturday. Thank you! Coumadin 4 mg tablet RxNorm: 141669 1 Tablet(s) PO daily TAKE ONE TABLET BY MOUTH EVERY DAY 09/15/2012 03/09/2013 Inactive Generic For:COUMADIN 4MG TAB Coumadin 4 mg tablet RxNorm: 838955 Tablet(s) PO TAKE ONE TABLET BY MOUTH EVERY DAY 09/12/2012 09/14/2012 Inactive Generic For:COUMADIN 4MG TAB Coumadin 4 mg tablet RxNorm: 602857 1 Tablet(s) PO daily 201209/11/2012 Inactive new dose Coumadin 4 mg tablet RxNorm: 338906 1 Tablet(s) PO daily 201207/15/2012 Inactive Coumadin 3 mg tablet RxNorm: 904190 1 1/2 Tablet(s) PO daily 07/16/2012 Inactive pravastatin 40 mg tablet RxNorm: 729627 1 Tablet(s) PO daily 07/19/2013 Inactive Coumadin 3 mg tablet RxNorm: 252764 1 1/2 Tablet(s) PO daily 07/15/2012 Inactive amlodipine 5 mg tablet RxNorm: 980119 1 Tablet(s) PO daily 05/201209/21/2012 Inactive Voltaren 1 % Topical Gel RxNorm: 147185 4 Gram(s) TOP QID 04/2805/27/2012 Inactive Chikis 180 mg tablet RxNorm: 153683 1 Tablet(s) PO daily No Start Date Active hydrochlorothiazide 12.5 mg tablet RxNorm: 626274 1 Tablet(s) PO daily No Start Date 06/28/2015 Inactive Ziac 2.5 mg-6.25 mg tablet RxNorm: 779442 1 Tablet(s) PO daily No Start Date 09/15/2013 Inactive Coumadin 3 mg tablet RxNorm: 350211 Tablet(s) PO No Start Date 04/30/2012 Inactive pravastatin 40 mg tablet RxNorm: 788917 1 Tablet(s) PO daily No Start Date 06/25/2012 Inactive Medication Administered Medication Codes Instructions Start Date Status Kenalog 40 mg/mL suspension for injection RxNorm: 9287705 Milliliter 05/20/2013 No longer Active Rocephin 500 mg solution for injection RxNorm: 354340 04/16/2013 No longer Active Influenza Virus Vaccine [...] Dysuria ICD-10: R30.0 ICD-9: 788.1 01/07/2017 Other prison (current) drug therapy ICD-10: Z79.899 ICD-9: V58.69 [...] Code Item Item Code Result Date Pt Ihu4084 PT 30.3 seconds 07/18/2018 Pt Nak0799 INR 2.9 07/18/2018 Pt Lbf3625 Low Intensity - 1.5-2.0 07/18/2018 Pt Gph0988 Mod intensity - 2.0-3.0 07/18/2018 Pt Tgr3736 Hi intensity - 3.0-4.0 07/18/2018 Pt Hul5204 PT 32.5 seconds 06/20/2018 Pt Wxn5103 INR 3.2 06/20/2018 Pt Bmi7073 Low Intensity - 1.5-2.0 06/20/2018 Pt Coa8428 Mod intensity - 2.0-3.0 06/20/2018 Pt Boa6517 Hi intensity - 3.0-4.0 06/20/2018 Pt Vjq2370 PT 30.3 seconds 05/19/2018 Pt Gnm3127 INR 2.9 05/19/2018 Pt Sqn1080 Low Intensity - 1.5-2.0 05/19/2018 Pt Wdd0207 Mod intensity - 2.0-3.0 05/19/2018 Pt Emf7861 Hi intensity - 3.0-4.0 05/19/2018 Pt Nhd6836 PT 28.9 seconds 04/18/2018 Pt Bwt0645 INR 2.8 04/18/2018 Pt Bry1595 Low Intensity - 1.5-2.0 04/18/2018 Pt Qlq0587 Mod intensity - 2.0-3.0 04/18/2018 Pt Skf5064 Hi intensity - 3.0-4.0 04/18/2018 Pt Pee5673 PT 23.6 seconds 03/14/2018 Pt Gen8072 INR 2.1 03/14/2018 Pt Epj7006 Low Intensity - 1.5-2.0 03/14/2018 Pt Ivj4433 Mod intensity - 2.0-3.0 03/14/2018 Pt Gak9875 Hi intensity - 3.0-4.0 03/14/2018 Tsh Ord6 [...] 18.8 % 02/14/2018 Cbc With Differential Ord2 [place]% 12.8 % 02/14/2018 Cbc With Differential Ord2 [...] 0.88 K/ul 02/14/2018 Cbc With Differential Ord2 [place] ABS# 0.6 K/ul 02/14/2018 Cbc With Differential Ord2 Eos ABS# 0.1 K/ul 02/14/2018 Cbc With Differential Ord2 Baso ABS# 0.0 K/ul 02/14/2018 Comp Metabolic Dmr255 NA 142 mEq/L 02/14/2018 Comp Metabolic Wty098 K 4.0 mEq/L 02/14/2018 Comp Metabolic Kxf332 CL 107 mEq/L 02/14/2018 Comp Metabolic Xnx628 CO2 25.0 mEq/L 02/14/2018 Comp Metabolic Tum140 ANION GAP 14 02/14/2018 Comp Metabolic Jko621 GLUCOSE 71 mg/dL 02/14/2018 Comp Metabolic Szv604 Creat 0.8 mg/dL 02/14/2018 Comp Metabolic Dhu829 eGFR 77 ml/min/1.73m2 02/14/2018 Comp Metabolic Yhy629 BUN 11 mg/dL 02/14/2018 Comp Metabolic Aaz388 B/C Ratio 14.5 Ratio 02/14/2018 Comp Metabolic Jit215 CALCIUM 9.3 mg/dL 02/14/2018 Comp Metabolic Fwq159 ALK PHOS 56 U/L 02/14/2018 Comp Metabolic Ftu882 AST(SGOT) 13 U/L 02/14/2018 Comp Metabolic Wlq668 ALT(SGPT) 8 U/L 02/14/2018 Comp Metabolic Dxm972 BILI T 0.7 mg/dL 02/14/2018 Comp Metabolic Hde338 ALBUMIN 3.7 g/dL 02/14/2018 Comp Metabolic Ybt228 TPRO 6.5 g/dL 02/14/2018 Comp Metabolic Bbl656 GLOB 2.8 g/dL 02/14/2018 Comp Metabolic Fie078 A/G Ratio 1.3 Ratio 02/14/2018 Comp Metabolic Vtt334 Osmo 281 mOsmo 02/14/2018 Pt Gag1978 PT 26.2 seconds 02/14/2018 Pt Lmk0152 INR 2.4 02/14/2018 Pt Uyf8239 Low Intensity - 1.5-2.0 02/14/2018 Pt Vzl4527 Mod intensity - 2.0-3.0 02/14/2018 Pt Zog3561 Hi intensity - 3.0-4.0 02/14/2018 Vitamin D 25 Oh Vpv0957 VITAMIN D, 25 HYDROXY 14.31 ng/mL Valproic Acid Hmu268 VALPROIC 20.0 ug/ml 02/14/2018 Pt Ezs0672 PT 29.2 seconds 01/16/2018 Pt Dxk4298 INR 2.7 01/16/2018 Pt Jvm7299 Low Intensity - 1.5-2.0 01/16/2018 Pt Umr0383 Mod intensity - 2.0-3.0 01/16/2018 Pt Nzh5517 Hi intensity - 3.0-4.0 01/16/2018 Pt Vbf3078 PT 29.1 seconds 12/09/2017 Pt Ttz9744 INR 2.7 12/09/2017 Pt Qes7547 Low Intensity - 1.5-2.0 12/09/2017 Pt Bjz9400 Mod intensity - 2.0-3.0 12/09/2017 Pt Bnj3903 Hi intensity - 3.0-4.0 12/09/2017 Pt Zqj4130 PT 25.5 seconds 10/31/2017 Pt Btf9578 INR 2.3 10/31/2017 Pt Ygo5667 Low Intensity - 1.5-2.0 10/31/2017 Pt Dxs4455 Mod intensity - 2.0-3.0 10/31/2017 Pt Mvr3067 Hi intensity - 3.0-4.0 10/31/2017 Pt Oqi0821 PT 29.5 seconds 10/03/2017 Pt Nhv5696 INR 2.8 10/03/2017 Pt Wvn0979 Low Intensity - 1.5-2.0 10/03/2017 Pt Nnj4193 Mod intensity - 2.0-3.0 10/03/2017 Pt Tmn5096 Hi intensity - 3.0-4.0 10/03/2017 Pt Qeh5992 PT 28.1 seconds 08/30/2017 Pt Smw5717 INR 2.6 08/30/2017 Pt Aua8190 Low Intensity - 1.5-2.0 08/30/2017 Pt Nlb0592 Mod intensity - 2.0-3.0 08/30/2017 Pt Wec0122 Hi intensity - 3.0-4.0 08/30/2017 Pt Lxj3154 PT 33.2 seconds 08/15/2017 Pt Gup1502 INR 3.2 08/15/2017 Pt Bzb1784 Low Intensity - 1.5-2.0 08/15/2017 Pt Axl6724 Mod intensity - 2.0-3.0 08/15/2017 Pt Dwi3984 Hi intensity - 3.0-4.0 08/15/2017 Pt Hat4093 PT 31.5 seconds 07/10/2017 Pt Lbp5341 INR 3.0 07/10/2017 Pt Ohu0866 Low Intensity - 1.5-2.0 07/10/2017 Pt Dnn3120 Mod intensity - 2.0-3.0 07/10/2017 Pt Bbi0163 Hi intensity - 3.0-4.0 07/10/2017 Pt Ocj9700 PT 33.5 seconds 05/31/2017 Pt Tnz0993 INR 3.2 05/31/2017 Pt Wgv6203 Low Intensity - 1.5-2.0 05/31/2017 Pt Xok0920 Mod intensity - 2.0-3.0 05/31/2017 Pt Ryz1995 Hi intensity - 3.0-4.0 05/31/2017 Pt Vgi3274 PT 32.2 seconds 05/02/2017 Pt Bpe3995 INR 3.1 05/02/2017 Pt Pxy5943 Low Intensity - 1.5-2.0 05/02/2017 Pt Qpx7007 Mod intensity - 2.0-3.0 05/02/2017 Pt Apl0567 Hi intensity - 3.0-4.0 05/02/2017 Pt Eif9449 PT 26.8 seconds 03/28/2017 Pt Cfa1745 INR 2.5 03/28/2017 Pt Fnd0979 Low Intensity - 1.5-2.0 03/28/2017 Pt Fsu7318 Mod intensity - 2.0-3.0 03/28/2017 Pt Fok4835 Hi intensity - 3.0-4.0 03/28/2017 Pt Kkj5669 PT 26.8 seconds 02/22/2017 Pt Xzx9432 INR 2.5 02/22/2017 Pt Ewp0747 Low Intensity - 1.5-2.0 02/22/2017 Pt Jya7745 Mod intensity - 2.0-3.0 02/22/2017 Pt Ypd0386 Hi intensity - 3.0-4.0 02/22/2017 Pt Tmi5466 PT 20.1 seconds 02/07/2017 Pt Bne7543 INR 1.7 02/07/2017 Pt Fis8935 Low Intensity - 1.5-2.0 02/07/2017 Pt Uqt5040 Mod intensity - 2.0-3.0 02/07/2017 Pt Rap7532 Hi intensity - 3.0-4.0 02/07/2017 Culture Urine [id number] URINE CULTURE SEE NOTES 01/10/2017 Culture Urine [id number] Continued Results 01/10/2017 Urine Culture Ucult Complete >100,000 col/ml aerobic growth sent to ref lab 01/08/2017 Valproic Acid (Depakote) S 971486 VALPROIC ACID 20.3 ug/mL 01/08/2017 Tsh Ord6 hTSH II 2.50 uIU/mL 01/07/2017 Cbc With Differential Ord2 WBC 4.94 K/ul 01/07/2017 Cbc With Differential Ord2 RBC 4.93 M/ul 01/07/2017 Cbc With Differential Ord2 HGB 15.8 g/dl 01/07/2017 Cbc With Differential Ord2 Neut% 67.3 % 01/07/2017 Cbc With Differential Ord2 HCT 48.3 % 01/07/2017 Cbc With Differential Ord2 MCV 98.0 fl 01/07/2017 Cbc With Differential Ord2 Lymph% 19.6 % 01/07/2017 Cbc With Differential Ord2 [place]% 10.5 % 01/07/2017 Cbc With Differential Ord2 MCH 32.0 pg 01/07/2017 Cbc With Differential Ord2 Eos% 2.4 % 01/07/2017 Cbc With Differential Ord2 MCHC 32.7 pg 01/07/2017 Cbc With Differential Ord2 PLT 210 K/ul 01/07/2017 Cbc With Differential Ord2 Baso% 0.2 % 01/07/2017 Cbc With Differential Ord2 Neut ABS# 3.32 K/ul 01/07/2017 Cbc With Differential Ord2 RDW 14.3 % 01/07/2017 Cbc With Differential Ord2 Lymph ABS# 0.97 K/ul 01/07/2017 Cbc With Differential Ord2 [place] ABS# 0.5 K/ul 01/07/2017 Cbc With Differential Ord2 Eos ABS# 0.1 K/ul 01/07/2017 Cbc With Differential Ord2 Baso ABS# 0.0 K/ul 01/07/2017 Comp Metabolic Crp112 NA 142 mEq/L 01/07/2017 Comp Metabolic Vqu180 K 4.0 mEq/L 01/07/2017 Comp Metabolic Wde940 CL 105 mEq/L 01/07/2017 Comp Metabolic Ycl866 CO2 24.0 mEq/L 01/07/2017 Comp Metabolic Aqp864 ANION GAP 17 01/07/2017 Comp Metabolic Cdl641 GLUCOSE 81 mg/dL 01/07/2017 Comp Metabolic Kfd027 Creat 0.8 mg/dL 01/07/2017 Comp Metabolic Sdd191 eGFR 72 ml/min/1.73m2 01/07/2017 Comp Metabolic Shd472 BUN 12 mg/dL 01/07/2017 Comp Metabolic Rxr919 B/C Ratio 15.0 Ratio 01/07/2017 Comp Metabolic Rkf754 CALCIUM 9.0 mg/dL 01/07/2017 Comp Metabolic Liv985 ALK PHOS 59 U/L 01/07/2017 Comp Metabolic Pgr740 AST(SGOT) 18 U/L 01/07/2017 Comp Metabolic Tsn238 ALT(SGPT) 11 U/L 01/07/2017 Comp Metabolic Klk637 BILI T 0.6 mg/dL 01/07/2017 Comp Metabolic Vnj287 ALBUMIN 3.6 g/dL 01/07/2017 Comp Metabolic Rye925 TPRO 6.7 g/dL 01/07/2017 Comp Metabolic Wvm520 GLOB 3.1 g/dL 01/07/2017 Comp Metabolic Wfv432 A/G Ratio 1.2 Ratio 01/07/2017 Comp Metabolic Ggf015 Osmo 282 mOsmo 01/07/2017 Pt Zpr6230 PT 19.5 seconds 01/07/2017 Pt Jkp8280 INR 1.7 01/07/2017 Pt Jtb3235 Low Intensity - 1.5-2.0 01/07/2017 Pt Prr0809 Mod intensity - 2.0-3.0 01/07/2017 Pt Sbv3798 Hi intensity - 3.0-4.0 01/07/2017 Pt Ygu0861 PT 22.5 seconds 12/06/2016 Pt Aqm7298 INR 2.1 12/06/2016 Pt Urp3061 Low Intensity - 1.5-2.0 12/06/2016 Pt Oev3171 Mod intensity - 2.0-3.0 12/06/2016 Pt Wgo7306 Hi intensity - 3.0-4.0 12/06/2016 Pt Kyi5060 PT 20.8 seconds 10/29/2016 Pt Oya0285 INR 1.9 10/29/2016 Pt Hef1450 Low Intensity - 1.5-2.0 10/29/2016 Pt Emb9430 Mod intensity - 2.0-3.0 10/29/2016 Pt Yad2937 Hi intensity - 3.0-4.0 10/29/2016 Pt Omn9402 PT 21.9 seconds 09/24/2016 Pt Agr4862 INR 2.0 09/24/2016 Pt Vdr5451 Low Intensity - 1.5-2.0 09/24/2016 Pt Pep7296 Mod intensity - 2.0-3.0 09/24/2016 Pt Rdv9162 Hi intensity - 3.0-4.0 09/24/2016 Pt Lxc8709 PT 21.0 seconds 09/10/2016 Pt Ffz7834 INR 1.9 09/10/2016 Pt Ofl2751 Low Intensity - 1.5-2.0 09/10/2016 Pt Hkh6032 Mod intensity - 2.0-3.0 09/10/2016 Pt Vrj8401 Hi intensity - 3.0-4.0 09/10/2016 Pt Wmm7380 PT 22.8 seconds 08/20/2016 Pt Wub6856 INR 2.1 08/20/2016 Pt Qtm5543 Low Intensity - 1.5-2.0 08/20/2016 Pt Wan6356 Mod intensity - 2.0-3.0 08/20/2016 Pt Dwa3909 Hi intensity - 3.0-4.0 08/20/2016 Pt Spg5317 PT 19.2 seconds 08/02/2016 Pt Roe8909 INR 1.7 08/02/2016 Pt Uzn5873 Low Intensity - 1.5-2.0 08/02/2016 Pt Byp3279 Mod intensity - 2.0-3.0 08/02/2016 Pt Tfr2164 Hi intensity - 3.0-4.0 08/02/2016 Pt Nmx9813 PT 31.2 seconds 07/12/2016 Pt Pew6882 INR 3.2 07/12/2016 Pt Smf0515 Low Intensity - 1.5-2.0 07/12/2016 Pt Yht0380 Mod intensity - 2.0-3.0 07/12/2016 Pt Glm9487 Hi intensity - 3.0-4.0 07/12/2016 Pt Mut0319 PT 20.3 seconds 07/05/2016 Pt Gji7885 INR 1.8 07/05/2016 Pt Pbq8046 Low Intensity - 1.5-2.0 07/05/2016 Pt God5104 Mod intensity - 2.0-3.0 07/05/2016 Pt Iqh0240 Hi intensity - 3.0-4.0 07/05/2016 Pt Ygg0048 PT 22.2 seconds 05/29/2016 Pt Nrm9421 INR 2.1 05/29/2016 Pt Lpe3382 Low Intensity - 1.5-2.0 05/29/2016 Pt Rtx3367 Mod intensity - 2.0-3.0 05/29/2016 Pt Xdk7910 Hi intensity - 3.0-4.0 05/29/2016 Tsh Ord6 hTSH II 3.38 uIU/mL 04/25/2016 Comp Metabolic Asc713 NA 138 mEq/L 04/25/2016 Comp Metabolic Pql024 K 4.1 mEq/L 04/25/2016 Comp Metabolic Fsu784 CL 105 mEq/L 04/25/2016 Comp Metabolic Ztq725 CO2 25.0 mEq/L 04/25/2016 Comp Metabolic Psa552 ANION GAP 12 04/25/2016 Comp Metabolic Het766 GLUCOSE 89 mg/dL 04/25/2016 Comp Metabolic Zgm713 Creat 0.8 mg/dL 04/25/2016 Comp Metabolic Utm343 eGFR 71 ml/min/1.73m2 04/25/2016 Comp Metabolic Shg742 BUN 14 mg/dL 04/25/2016 Comp Metabolic Xgk873 B/C Ratio 17.3 Ratio 04/25/2016 Comp Metabolic Fke723 CALCIUM 9.0 mg/dL 04/25/2016 Comp Metabolic Xqn049 ALK PHOS 63 U/L 04/25/2016 Comp Metabolic Irk156 AST(SGOT) 15 U/L 04/25/2016 Comp Metabolic Qco134 ALT(SGPT) 9 U/L 04/25/2016 Comp Metabolic Rkb661 BILI T 0.4 mg/dL 04/25/2016 Comp Metabolic Wfy355 ALBUMIN 3.7 g/dL 04/25/2016 Comp Metabolic Djl620 TPRO 6.4 g/dL 04/25/2016 Comp Metabolic Jqn931 GLOB 2.7 g/dL 04/25/2016 Comp Metabolic Fxw932 A/G Ratio 1.4 Ratio 04/25/2016 Comp Metabolic Coo881 Osmo 276 mOsmo 04/25/2016 Valproic Acid Dhf060 VALPROIC 17.0 ug/ml 04/25/2016 Cbc With Differential Ord2 WBC 4.98 K/ul 04/25/2016 Cbc With Differential Ord2 RBC 4.68 M/ul 04/25/2016 Cbc With Differential Ord2 HGB 15.2 g/dl 04/25/2016 Cbc With Differential Ord2 HCT 46.3 % 04/25/2016 Cbc With Differential Ord2 Neut% 59.3 % 04/25/2016 Cbc With Differential Ord2 Lymph% 25.9 % 04/25/2016 Cbc With Differential Ord2 MCV 98.9 fl 04/25/2016 Cbc With Differential Ord2 MCH 32.5 pg 04/25/2016 Cbc With Differential Ord2 [place]% 12.4 % 04/25/2016 Cbc With Differential Ord2 [...] 1.29 K/ul 04/25/2016 Cbc With Differential Ord2 [place] ABS# 0.6 K/ul 04/25/2016 Cbc With Differential Ord2 Eos ABS# 0.1 K/ul 04/25/2016 Cbc With Differential Ord2 Baso ABS# 0.0 K/ul 04/25/2016 Pt Hyh6930 PT 21.9 seconds 04/25/2016 Pt Bvg1143 INR 2.0 04/25/2016 Pt Xrb5516 Low Intensity - 1.5-2.0 04/25/2016 Pt Jsh3614 Mod intensity - 2.0-3.0 04/25/2016 Pt Xtl9980 Hi intensity - 3.0-4.0 04/25/2016 Pt Lyn5343 PT 24.4 seconds 03/27/2016 Pt Abd7416 INR 2.3 03/27/2016 Pt Bkr2109 Low Intensity - 1.5-2.0 03/27/2016 Pt Uno1362 Mod intensity - 2.0-3.0 03/27/2016 Pt Gnm7454 Hi intensity - 3.0-4.0 03/27/2016 Pt Uva4289 PT 22.7 seconds 02/24/2016 Pt Kon6254 INR 2.1 02/24/2016 Pt Wxs2576 Low Intensity - 1.5-2.0 02/24/2016 Pt Vej1542 Mod intensity - 2.0-3.0 02/24/2016 Pt Dok1470 Hi intensity - 3.0-4.0 02/24/2016 Pt Mpm3123 PT 24.2 seconds 02/10/2016 Pt Vgg8064 INR 2.3 02/10/2016 Pt Ixg0905 Low Intensity - 1.5-2.0 02/10/2016 Pt Nsn8835 Mod intensity - 2.0-3.0 02/10/2016 Pt Tks5394 Hi intensity - 3.0-4.0 02/10/2016 Pt Yfa0859 PT 15.7 seconds 01/26/2016 Pt Xmp5475 INR 1.3 01/26/2016 Pt Iqf4487 Low Intensity - 1.5-2.0 01/26/2016 Pt Xko7566 Mod intensity - 2.0-3.0 01/26/2016 Pt Kfy9842 Hi intensity - 3.0-4.0 01/26/2016 Pt Iqc4728 PT 22.0 seconds 01/02/2016 Pt Mwk2228 INR 2.0 01/02/2016 Pt Onm9951 Low Intensity - 1.5-2.0 01/02/2016 Pt Rty8016 Mod intensity - 2.0-3.0 01/02/2016 Pt Odo4319 Hi intensity - 3.0-4.0 01/02/2016 Pt Sjt0509 PT 21.9 seconds 11/30/2015 Pt Jto4662 INR 2.0 11/30/2015 Pt Efh5653 Low Intensity - 1.5-2.0 11/30/2015 Pt Jva3473 Mod intensity - 2.0-3.0 11/30/2015 Pt Vhf1624 Hi intensity - 3.0-4.0 11/30/2015 Pt Mnw0238 PT 20.0 seconds 10/28/2015 Pt Dpi5979 INR 1.8 10/28/2015 Pt Fna7063 Low Intensity - 1.5-2.0 10/28/2015 Pt Fsa6500 Mod intensity - 2.0-3.0 10/28/2015 Pt Luk0355 Hi intensity - 3.0-4.0 10/28/2015 Cbc With [...] 32.2 pg 09/19/2015 Cbc With Differential Ord2 [place]% 11.4 % 09/19/2015 Cbc With Differential Ord2 [...] 0.89 K/ul 09/19/2015 Cbc With Differential Ord2 [place] ABS# 0.6 K/ul 09/19/2015 Cbc With Differential Ord2 Eos ABS# 0.1 K/ul 09/19/2015 Cbc With Differential Ord2 Baso ABS# 0.0 K/ul 09/19/2015 Cbc With Differential Ord2 New Analyzer Notice Please note new ref ranges starting 06-29-2015 due to implemntation of new five part differential hematolgy analyzer. 09/19/2015 Pt Piy2318 PT 28.3 seconds 09/19/2015 Pt Npk3926 INR 2.8 09/19/2015 Pt Nvw2465 Low Intensity - 1.5-2.0 09/19/2015 Pt Gdz5932 Mod intensity - 2.0-3.0 09/19/2015 Pt Thr4945 Hi intensity - 3.0-4.0 09/19/2015 Pt Snp6064 PT 22.5 seconds 08/12/2015 Pt Apb6755 INR 2.1 08/12/2015 Pt Kvt3835 Low Intensity - 1.5-2.0 08/12/2015 Pt Ztn7456 Mod intensity - 2.0-3.0 08/12/2015 Pt Plp1622 Hi intensity - 3.0-4.0 08/12/2015 Pt Wep9060 PT 34.1 seconds 07/29/2015 Pt Pni6117 INR 3.5 07/29/2015 Pt Lhm6788 Low Intensity - 1.5-2.0 07/29/2015 Pt Nwq5855 Mod intensity - 2.0-3.0 07/29/2015 Pt Zez1663 Hi intensity - 3.0-4.0 07/29/2015 Tsh Ord6 hTSH II 2.48 uIU/mL 06/29/2015 Pt Ogg8934 PT 14.2 seconds 06/29/2015 Pt Oak7120 INR 1.1 06/29/2015 Pt Yvm4341 Low Intensity - 1.5-2.0 06/29/2015 Pt Efr3589 Mod intensity - 2.0-3.0 06/29/2015 Pt Rgq8965 Hi intensity - 3.0-4.0 06/29/2015 Comp Metabolic Txg347 NA 139 mEq/L 06/29/2015 Comp Metabolic Mow817 K 3.8 mEq/L 06/29/2015 Comp Metabolic Hcn681 CL 105 mEq/L 06/29/2015 Comp Metabolic Dre613 CO2 21.0 mEq/L 06/29/2015 Comp Metabolic Nuv484 ANION GAP 17 06/29/2015 Comp Metabolic Vwo337 GLUCOSE 78 mg/dL 06/29/2015 Comp Metabolic Thy025 Creat 0.7 mg/dL 06/29/2015 Comp Metabolic Cpm667 eGFR 86 ml/min/1.73m2 06/29/2015 Comp Metabolic Gvp569 BUN 7 mg/dL 06/29/2015 Comp Metabolic Sfs363 B/C Ratio 10.1 Ratio 06/29/2015 Comp Metabolic Bzw936 CALCIUM 9.3 mg/dL 06/29/2015 Comp Metabolic Wsb188 ALK PHOS 84 U/L 06/29/2015 Comp Metabolic Ygs906 AST(SGOT) 17 U/L 06/29/2015 Comp Metabolic Fzn256 ALT(SGPT) 10 U/L 06/29/2015 Comp Metabolic Fxw682 BILI T 1.0 mg/dL 06/29/2015 Comp Metabolic Vka232 ALBUMIN 4.1 g/dL 06/29/2015 Comp Metabolic Qdn530 TPRO 7.0 g/dL 06/29/2015 Comp Metabolic Zhc563 GLOB 2.9 g/dL 06/29/2015 Comp Metabolic Jfa485 A/G Ratio 1.4 Ratio 06/29/2015 Comp Metabolic Oii269 Osmo 274 mOsmo 06/29/2015 CBC With Differential [...] Lipid Ord30 C/HDL 3.5 Ratio 06/29/2015 Pt Rus7776 PT 25.9 seconds 05/16/2015 Pt Dlv0308 INR 2.5 05/16/2015 Pt Wla5231 Low Intensity - 1.5-2.0 05/16/2015 Pt Qcn7422 Mod intensity - 2.0-3.0 05/16/2015 Pt Bkp0377 Hi intensity - 3.0-4.0 05/16/2015 Pt Pca7569 PT 28.2 seconds 04/19/2015 Pt Yzo7383 INR 2.7 04/19/2015 Pt Jed8538 Low Intensity - 1.5-2.0 04/19/2015 Pt Wxg2528 Mod intensity - 2.0-3.0 04/19/2015 Pt Rtg7292 Hi intensity - 3.0-4.0 04/19/2015 Pt Giy5197 PT 29.7 seconds 02/17/2015 Pt Rvo8216 INR 2.9 02/17/2015 Pt Rzc0729 Low Intensity - 1.5-2.0 02/17/2015 Pt Ilv1038 Mod intensity - 2.0-3.0 02/17/2015 Pt Ztf8505 Hi intensity - 3.0-4.0 02/17/2015 Cbc With [...] Differential Ord2 RDW 14.5 % 02/07/2015 Pt Sxv3273 PT 26.8 seconds 02/07/2015 Pt Cst6643 INR 2.6 02/07/2015 Pt Ytj0892 Low Intensity - 1.5-2.0 02/07/2015 Pt Yrc9210 Mod intensity - 2.0-3.0 02/07/2015 Pt Scy0811 Hi intensity - 3.0-4.0 02/07/2015 Tsh Ord6 hTSH II 2.36 uIU/mL 02/07/2015 Comp Metabolic Yly074 NA 136 mEq/L 02/07/2015 Comp Metabolic Knl016 K 4.2 mEq/L 02/07/2015 Comp Metabolic Ded138 CL 105 mEq/L 02/07/2015 Comp Metabolic Mnu942 CO2 23.0 mEq/L 02/07/2015 Comp Metabolic Bpi304 ANION GAP 12 02/07/2015 Comp Metabolic Fbi564 GLUCOSE 129 mg/dL 02/07/2015 Comp Metabolic Utw578 Creat 0.9 mg/dL 02/07/2015 Comp Metabolic Ygf586 eGFR 67 ml/min/1.73m2 02/07/2015 Comp Metabolic Cug552 BUN 13 mg/dL 02/07/2015 Comp Metabolic Tvc682 B/C Ratio 15.1 Ratio 02/07/2015 Comp Metabolic Bvk700 CALCIUM 9.3 mg/dL 02/07/2015 Comp Metabolic Vln226 ALK PHOS 79 U/L 02/07/2015 Comp Metabolic Nnm576 AST(SGOT) 16 U/L 02/07/2015 Comp Metabolic Fes789 ALT(SGPT) 10 U/L 02/07/2015 Comp Metabolic Olo531 BILI T 0.5 mg/dL 02/07/2015 Comp Metabolic Uaf127 ALBUMIN 4.0 g/dL 02/07/2015 Comp Metabolic Pzr151 TPRO 6.9 g/dL 02/07/2015 Comp Metabolic Mfv807 GLOB 2.9 g/dL 02/07/2015 Comp Metabolic Eyl956 A/G Ratio 1.4 Ratio 02/07/2015 Comp Metabolic Utc620 Osmo 274 mOsmo 02/07/2015 Pt Qdg2284 PT 27.9 seconds 02/04/2015 Pt Biy4194 INR 2.7 02/04/2015 Pt Cfn3147 Low Intensity - 1.5-2.0 02/04/2015 Pt Jtm9410 Mod intensity - 2.0-3.0 02/04/2015 Pt Xjn9523 Hi intensity - 3.0-4.0 02/04/2015 Pt Brd1414 PT 17.2 seconds 01/25/2015 Pt Fiq8418 INR 1.4 01/25/2015 Pt Lwf6888 Low Intensity - 1.5-2.0 01/25/2015 Pt Yse0975 Mod intensity - 2.0-3.0 01/25/2015 Pt Vmv8407 Hi intensity - 3.0-4.0 01/25/2015 Pt Gqe2929 PT 20.7 seconds 12/23/2014 Pt Tjt1803 INR 1.8 12/23/2014 Pt Keu5635 Low Intensity - 1.5-2.0 12/23/2014 Pt Uzp2216 Mod intensity - 2.0-3.0 12/23/2014 Pt Cuj6285 Hi intensity - 3.0-4.0 12/23/2014 PT/MC [id number] PRO TIME 24.9 SEC 08/27/2012 PT/MC [id number] INR MCMC 2.2 08/27/2012 PT/MC [id number] PRO TIME 31.1 SEC 05/13/2012 PT/MC [id number] INR MCMC 3.0 05/13/2012 GFR CALC 6722231 GFR AA >60 ML/MIN 04/30/2012 GFR CALC 7632593 GFR NON-AA >60 ML/MIN 04/30/2012 CHEM 14 5489677 AST 16 U/L 04/30/2012 CHEM 14 5153493 ALT 9 IU/L 04/30/2012 CHEM 14 4228771 BUN 7 MG/DL 04/30/2012 CHEM 14 1513667 ALBUMIN 4.0 GM/DL 04/30/2012 CHEM 14 4224740 CHLORIDE 107 MMOL/L 04/30/2012 CHEM 14 4594330 BILI TOT 0.7 MG/DL 04/30/2012 CHEM 14 9070062 ALK PHOS 68 U/L 04/30/2012 CHEM 14 1320001 SODIUM 142 MMOL/L 04/30/2012 CHEM 14 6433826 CREATININE 0.80 MG/DL 04/30/2012 CHEM 14 2681293 CALCIUM 9.5 MG/DL 04/30/2012 CHEM 14 7910604 POTASSIUM 3.7 MMOL/L 04/30/2012 CHEM 14 2344571 PROT TOT 7.1 GM/DL 04/30/2012 CHEM 14 7076209 GLUCOSE 88 MG/DL 04/30/2012 CHEM 14 1917156 BICARB 27 MMOL/L 04/30/2012 CHEM 14 2593407 ANION GAP 8 MEQ/L 04/30/2012 PT/MC 6151569 PRO TIME 18.5 SEC 04/30/2012 PT/MC 2189973 INR MCMC 1.5 04/30/2012 TSH 0035295 TSH 3.019 uIU/ML 04/30/2012 CBC 4867187 WBC 4.0 10e9/L 04/30/2012 CBC 1414516 RBC 4.94 10e12/L 04/30/2012 CBC 7764404 HGB 15.7 g/dL 04/30/2012 CBC 0677214 HCT DET 47.5 % 04/30/2012 CBC 7905400 MCV 96.2 fL 04/30/2012 CBC 4039315 MCH 31.8 pg 04/30/2012 CBC 4502210 MCHC 33.1 g/dL 04/30/2012 CBC 5983169 PLT 226 10e9/L 04/30/2012 CBC 3848583 MPV 10.9 fL 04/30/2012 CBC 8994657 KOBY % 64.8 % 04/30/2012 CBC 0445333 LY % 22.1 % 04/30/2012 CBC 8358489 MON % 9.5 % 04/30/2012 CBC 2661063 EOS % 3.3 % 04/30/2012 CBC 4512935 BASO % 0.3 % 04/30/2012 CBC 9803636 RDW 13.5 % 04/30/2012 CBC 5716767 ABS KOBY 2.59 10e9/L 04/30/2012 CBC 9246306 ABS LYMPH 0.88 10e9/L 04/30/2012 CBC 3866945 ABS MONO 0.38 10e9/L 04/30/2012 CBC 0342966 ABS EOS 0.13 10e9/L 04/30/2012 CBC 5276712 ABS BASO 0.01 10e9/L 04/30/2012 CBC 4195997 RDW-SD 46.5 fL 04/30/2012 LIPID GRP HDL TEST 47 MG/DL 04/30/2012 LIPID GRP TRIG 131 MG/DL 04/30/2012 LIPID GRP 3535844 TEST LDL 145 MG/DL 04/30/2012 LIPID GRP 4393148 CHOL 218 MG/DL 04/30/2012 LIPID GRP 7052530 RCHOL/HDL 4.64 RATIO 04/30/2012 Review of Systems [...] clear 04/25/2016 None Full Exam - General 1995 Ears/Nose/Throat [...] clear 03/30/2014 None Full Exam - General 1995 Ears/Nose/Throat oral cavity/pharynx/larynx Overall: no masses 03/30/2014 [...] bilaterally 04/16/2013 None Full Exam - General 1995 Respiratory respiratory effort/rhythm Overall: no retractions 04/16/2013 [...] rate 03/10/2013 None Full Exam - General 1995 Cardiovascular auscultation of heart Overall: normal heart sounds 03/10/2013 None Full Exam - General 1994 Cardiovascular auscultation of heart Overall: no murmurs 03/10/2013 None Full Exam - General 1994 Cardiovascular extremities Edema present: non-pitting 03/10/2013 None Full Exam - General 1995 Cardiovascular extremities Edema present: bilateral 03/10/2013 lower [...] clubbing 12/02/2012 None Full Exam - General 1995 Cardiovascular auscultation of heart Overall: regular rate 12/02/2012 None Full Exam - General 1995 Cardiovascular auscultation of heart Overall: normal heart sounds 12/02/2012 None Full Exam - General 1995 Cardiovascular auscultation of heart Systolic murmur: midsystolic 12/02/2012 None Full Exam - General 1995 Musculoskeletal lower extremity Inspection - thigh: normal appearance 12/02/2012 None Full Exam - General 1995 Musculoskeletal lower extremity Palpation - thigh: tenderness 12/02/2012 None Full Exam - General 1995 Musculoskeletal spine, ribs and pelvis Posture: kyphosis 12/02/2012 None Full Exam - General 1995 Musculoskeletal spine, ribs and pelvis Posture: lordosis 12/02/2012 None Full Exam - General 1995 Musculoskeletal gait and station Station: kyphosis 12/02/2012 [...] accomodation 10/08/2012 None Full Exam - General 1994 [...] tenderness 07/09/2012 None Full Exam - General 1995 Abdomen abdominal exam Overall: normal bowel sounds 07/09/2012 None Full Exam - General 1995 Musculoskeletal lower extremity Inspection - thigh: normal appearance 07/09/2012 None Full Exam - General 1994 Musculoskeletal lower extremity Palpation - thigh: tenderness 07/09/2012 None Full Exam - General 1994 Musculoskeletal spine, ribs and pelvis Posture: kyphosis 07/09/2012 None Full Exam - General 1995 [...] 2 07/09/2012 None Full Exam - General 1995 Psychiatric orientation/consciousness Overall: oriented to person, place and time 07/09/2012 None Full Exam - General 1995 Psychiatric mood and affect Overall: normal mood and affect 07/09/2012 None Full Exam - General 1995 Psychiatric mood and affect Mood: happy 07/09/2012 None Full Exam - General 1995 Constitutional general appearance Overall: well developed 07/09/2012 None Full Exam - General 1995 Constitutional general appearance Overall: in no acute distress 07/09/2012 None Full Exam - General 1995 Constitutional general appearance Overall: well nourished 07/09/2012 [...] Procedure Codes Date DESTRUCT PREMALG LESION CPT-4: 18549 11/07/2016 ADMIN INFLUENZA VIRUS VAC CPT-4: G0008 03/25/2015 FLU VACC 4 CHANTELLE 3 YRS PLUS IM Formatting Model/CDA Sections, Assigned to SNOMED CT: [id number] CPT-4: 73476Fsvnnvw 03/25/2015 ADMIN INFLUENZA VIRUS VAC Assigned to CPT-4: G3745Waoryhh 04/23/2014 FLU VAC NO PRSV 4 CHANTELLE 3 YRS+ CPT-4: 11176 04/23/2014 TRIAMCINOLONE ACET INJ NOS CPT-4: J3301 05/20/2013 THER/PROPH/DIAG INJ SC/IM CPT-4: 86444 05/20/2013 PRESCRIP TRANSMIT VIA ERX SY CPT-4: G8553 05/20/2013 URINALYSIS NONAUTO W/O SCOPE CPT-4: 09503 04/30/2013 THER/PROPH/DIAG INJ SC/IM CPT-4: 40906 04/16/2013 ROCEPHIN, PER 250 MG CPT-4: J0696 04/16/2013 PRESCRIP TRANSMIT VIA ERX SY CPT-4: G8553 04/16/2013 ADMIN INFLUENZA VIRUS VAC CPT-4: G0008 03/10/2013 FLULAVAL VACC, 3 YRS & >, IM CPT-4: Q2036 03/10/2013 PRESCRIP TRANSMIT VIA ERX SY CPT-4: G8553 12/02/2012 TRIAMCINOLONE ACET INJ NOS CPT-4: J3301 10/08/2012 INJ TRIGGER POINT 1/2 MUSCL CPT-4: 29120 10/08/2012 ROUTINE VENIPUNCTURE CPT-4: 37863 08/27/2012 DRAIN/INJECT JOINT/BURSA CPT-4: 59489 07/09/2012 TRIAMCINOLONE ACET INJ NOS CPT-4: J3301 07/09/2012 ROUTINE VENIPUNCTURE CPT-4: 67130 05/13/2012 ROUTINE VENIPUNCTURE CPT-4: 42356 04/30/2012 PRESCRIP TRANSMIT VIA ERX SY CPT-4: G8553 04/28/2012 Vital Signs Date Vital 02/14/2018 Blood Pressure 1: 130/78 Code : 8480-6 BMI: 24.6 Code : 55800-2 Heart Rate 1 : 64 bpm Height: 5'1" SpO2: 96% Weight: 130 lbs 12/09/2017 BMI: 24.0 Code: 59794-9 Height: 5'1" Weight: 127 lbs 11/14/2017 Blood Pressure 1: 140/74 Code : 8480-6 Heart Rate 1: 78 bpm SpO2: 94% Weight: 127 lbs 08/13/2017 Blood Pressure 1: 120/76 Code : 8480-6 BMI: 24.9 Code : 35417-8 Heart Rate 1 : 76 bpm Height: 5'1" SpO2: 96% Weight: 132 lbs 05/21/2017 Blood Pressure 1: 132/80 Code : 8480-6 BMI: 26.1 Code : 08990-3 Heart Rate 1 : 61 bpm Height: 5'1" SpO2: 92% Weight: 138 lbs 05/07/2017 Blood Pressure 1: 128/70 Code : 8480-6 BMI: 25.9 Code : 84217-9 Heart Rate 1 : 72 bpm Height: 5'1" SpO2: 96% Weight: 137 lbs 01/08/2017 Blood Pressure 1: 136/82 Code : 8480-6 BMI: 25.5 Code : 27688-8 Heart Rate 1 : 75 bpm Height: 5'1" SpO2: 96% Weight: 135 lbs 01/07/2017 Blood Pressure 1: 142/86 Code : 8480-6 BMI: 25.5 Code : 96045-3 Heart Rate 1 : 75 bpm Height: 5'1" SpO2: 95% Weight: 135 lbs 11/07/2016 Blood Pressure 1: 120/80 Code : 8480-6 BMI: 25.5 Code : 64588-9 Heart Rate 1 : 83 bpm Height: 5'1" SpO2: 97% Weight: 135 lbs 07/26/2016 Blood Pressure 1: 140/80 Code : 8480-6 BMI: 27.0 Code : 78311-6 Heart Rate 1 : 68 bpm Height: 5'1" SpO2: 94% Weight: 143 lbs 04/25/2016 Blood Pressure 1: 128/82 Code : 8480-6 BMI: 28.2 Code : 76794-7 Heart Rate 1 : 71 bpm Height: 5'1" SpO2: 98% Weight: 149 lbs 10/04/2015 Blood Pressure 1: 140/80 Code : 8480-6 BMI: 27.8 Code : 25904-3 Heart Rate 1 : 77 bpm Height: 5'1" SpO2: 96% Weight: 147 lbs 06/29/2015 Blood Pressure 1: 134/70 Code : 8480-6 BMI: 26.8 Code : 12033-6 Heart Rate 1 : 68 bpm Height: 5'1" SpO2: 95% Weight: 142 lbs 02/17/2015 Blood Pressure 1: 128/80 Code : 8480-6 Heart Rate 1: 85 bpm Height: 5'1" SpO2: 96% Weight: 02/07/2015 Blood Pressure 1: 130/68 Code : 8480-6 BMI: 28.7 Code : 56449-6 Heart Rate 1 : 80 bpm Height: 5'1" SpO2: 95% Weight: 152 lbs 03/30/2014 Blood Pressure 1: 142/80 Code : 8480-6 BMI: 27.8 Code : 44144-6 Heart Rate 1 : 83 bpm Height: 5'1" SpO2: 95% Weight: 147 lbs 12/24/2013 Blood Pressure 1: 120/80 Code : 8480-6 BMI: 27.8 Code : 25839-1 Heart Rate 1 : 76 bpm Height: 5'1" Weight: 147 lbs 12/01/2013 Blood Pressure 1: 138/82 Code : 8480-6 BMI: 28.0 Code : 48321-9 Heart Rate 1 : 76 bpm Height: 5'1" SpO2: 91% Weight: 148 lbs 11/27/2013 Blood Pressure 1: 140/90 Code : 8480-6 BMI: 28.0 Code : 27502-1 Heart Rate 1 : 76 bpm Height: 5'1" SpO2: 95% Weight: 148 lbs 08/27/2013 Blood Pressure 1: 132/76 Code : 8480-6 BMI: 26.5 Code : 27037-3 Heart Rate 1 : 72 bpm Height: 5'1" Weight: 140 lbs 05/20/2013 Blood Pressure 1: 122/80 Code : 8480-6 BMI: 26.8 Code : 10357-8 Heart Rate 1 : 80 bpm Height: 5'1" SpO2: 98% Temperature: 37.3 (C) / 99.2 (F) Weight: 142 lbs 04/30/2013 Blood Pressure 1: 140/80 Code : 8480-6 BMI: 27.0 Code : 34924-9 Heart Rate 1 : 73 bpm Height: 5'1" SpO2: 93% Temperature: 37.3 (C) / 99.1 (F) Weight: 143 lbs 04/16/2013 Blood Pressure 1: 100/64 Code : 8480-6 BMI: 27.2 Code : 26283-6 Heart Rate 1 : 80 bpm Height: 5'1" SpO2: 97% Temperature: 37.4 (C) / 99.3 (F) Weight: 144 lbs 03/10/2013 Blood Pressure 1: 132/82 Code : 8480-6 BMI: 27.2 Code : 51042-4 Heart Rate 1 : 80 bpm Height: 5'1" Weight: 144 lbs 12/08/2012 Blood Pressure 1: 144/80 Code : 8480-6 Heart Rate 1: 76 bpm Weight: 12/02/2012 Blood Pressure 1: 118/66 Code : 8480-6 BMI: 27.8 Code : 36823-7 Heart Rate 1 : 88 bpm Height: 5'1" Weight: 147 lbs 10/08/2012 Blood Pressure 1: 116/64 Code : 8480-6 BMI: 27.8 Code : 71536-1 Heart Rate 1 : 80 bpm Height: 5'1" Weight: 147 lbs 08/27/2012 Blood Pressure 1: 122/78 Code : 8480-6 BMI: 28.3 Code : 68144-6 Heart Rate 1 : 84 bpm Height: 5'1" Weight: 150 lbs 07/09/2012 Blood Pressure 1: 136/88 Code : 8480-6 Heart Rate 1: 84 bpm Weight: 150 lbs 05/19/2012 Blood Pressure 1: 124/74 Code : 8480-6 Heart Rate 1: 72 bpm Respiratory Rate : 16 bpm Weight: 152 lbs 04/28/2012 Blood Pressure 1: 130/80 Code : 8480-6 BMI: 29.1 Code : 13822-5 Heart Rate 1 : 56 bpm Height: [...] data Encounters Encounter Performer Location Codes Date ([id number]) [id number] EST. 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 PATIENT, LEVEL IV Diagnosis: Essential (primary) hypertension[ICD10: I10] Diagnosis: Urinary tract infection, site not specified[ICD10: N39.0] Diagnosis: Mixed hyperlipidemia[ICD10: E78.2] Sarah Gillis MD, [facility] CPT-4: 97330 01/08/2017 60215 EST. 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 PATIENT, LEVEL IV Diagnosis: Essential (primary) hypertension[ICD10: I10] Diagnosis: Mixed hyperlipidemia[ICD10: E78.2] Diagnosis: Actinic keratosis[ICD10: L57.0] Sarah Gillis MD, [facility] CPT- 4: 71097 11/07/2016 ([id number]) 79997 EST. PATIENT, LEVEL IV Diagnosis: Essential (primary) hypertension[ICD10: I10] Diagnosis: Mixed hyperlipidemia[ICD10: E78.2] Sarah Gillis MD [facility] CPT-4: 87723 07/26/2016 ([id number]) 85400 EST. 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 PATIENT, LEVEL IV Diagnosis: Essential (primary) hypertension[ICD10: I10] Diagnosis: Cervicalgia[ICD10: M54.2] Diagnosis: Cervical disc disorder, unspecified, unspecified cervical region[ ICD10: M50.90] Sarah Gillis MD, [facility] CPT-4: 11765 10/04/2015 ([id number]) 33530 EST. PATIENT, LEVEL IV Diagnosis: Encounter for therapeutic drug level monitoring[ICD10: Z51.81] Diagnosis: Mixed hyperlipidemia[ICD10: E78.2] Diagnosis: Essential (primary) hypertension[ICD10: I10] Diagnosis: Localized edema[ICD10: R60.0] Sarah Gillis MD [facility] CPT- 4: 69160 06/29/2015 ([id number]) 80508 EST. PATIENT, LEVEL IV Diagnosis: ESSENTIAL HYPERTENSION[ICD9: 401.9] Diagnosis: Osteoarthritis[ICD9: 715.90] Diagnosis: Left hip pain[ICD9: 719.45] Diagnosis: EDEMA[ICD9: 782.3] Diagnosis: ENCNTR LONG-ANTICOAG USE[ICD9: V58.61] Sarah Gillis MD, [facility] CPT-4: 56774 02/17/2015 ([id number]) 00321 EST. PATIENT, LEVEL IV Diagnosis: ESSENTIAL HYPERTENSION[ICD9: 401.9] Diagnosis: Osteoarthritis[ICD9: 715.90] Diagnosis: EDEMA[ICD9: 782.3] Diagnosis: ENCNTR LONG-ANTICOAG USE[ICD9: V58.61] Diagnosis: Left hip pain[ICD9: 719.45] Katy Gillis MD, [facility] CPT-4: 19115 02/07/2015 ([id number]) 10483 EST. PATIENT, LEVEL IV Diagnosis: ESSENTIAL HYPERTENSION[ICD9: 401.9] Diagnosis: Osteoarthritis[ICD9: 715.90] Diagnosis: Hip pain[ICD9: 719.45] Sarah Gillis MD, [facility] CPT-4: 27997 03/30/2014 ([id number]) 21001 EST. PATIENT, LEVEL III Diagnosis: ESSENTIAL HYPERTENSION[ICD9: 401.9] Diagnosis: Anticoagulant long-term use[ICD9: V58.61] Diagnosis: SCIATICA[ICD9: 724.3] Sarah Gillis MD, [facility] CPT-4: 76507 12/24/2013 ([id number]) 04242 EST. PATIENT, LEVEL III Diagnosis: Sacroiliitis[ICD9: 720.2] Diagnosis: SCIATICA[ICD9: 724.3] Sarah Gillis MD, [facility] CPT-4: 91824 12/01/2013 ([id number]) 17346 EST. PATIENT, LEVEL III Diagnosis: EDEMA[ICD9: 782.3] Diagnosis: LONG-TERM USE ANTICOAGUL[ICD9: V58.61] Sarah Gillis MD [facility] CPT-4: 99189 11/27/2013 ([id number]) 55289 EST. PATIENT, LEVEL III Diagnosis: ESSENTIAL HYPERTENSION[SNOMED: 61511205] Sarah Gillis MD, [facility] CPT-4: 18706 08/27/2013 ([id number]) 61203 EST. PATIENT, LEVEL III Diagnosis: Acute bronchitis[ICD9: 466.0] Diagnosis: COUGH[ICD9: 786.2] Sarah Gillis MD, [facility] CPT-4: 51782 05/20/2013 ([id number]) 24259 EST. PATIENT, LEVEL III Diagnosis: ACUTE BRONCHITIS[ICD9: 466.0] Diagnosis: Memory loss[ICD9: 780.93] Sarah Gillis MD [facility] CPT-4: 03805 04/30/2013 ([id number]) 95844 EST. PATIENT, LEVEL III Diagnosis: ACUTE BRONCHITIS[ICD9: 466.0] Diagnosis: Cough[ICD9: 786.2] Sarah Gillis MD [facility] CPT-4: 66182 04/16/2013 ([id number]) 47248 EST. PATIENT, LEVEL III Diagnosis: ESSENTIAL HYPERTENSION[SNOMED: 30618345] Sarah Gillis MD [facility] CPT-4: 02636 03/10/2013 ([id number]) Miscellaneous no charge Diagnosis: BLISTER FOOT/TOE[ICD9: 917.2] Sarah Gillis MD [facility] CPT- 4: 52751 12/08/2012 ([id number]) 71317 EST. PATIENT, LEVEL III Diagnosis: BLISTER FOOT/TOE[ICD9: 917.2] Diagnosis: CELLULITIS OF FOOT[ICD9: 682.7] Diagnosis: Osteoarthritis[ICD9: 715.90] Sarah Gillis MD [facility] CPT- 4: 59631 12/02/2012 ([id number]) 46344 EST. PATIENT, LEVEL III Diagnosis: ESSENTIAL HYPERTENSION[SNOMED: 03336381] Sarah Gillis MD [facility] CPT-4: 08515 10/08/2012 ([id number]) 74675 EST. 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 PATIENT, LEVEL III Diagnosis: ESSENTIAL HYPERTENSION[SNOMED: 66997588] Diagnosis: Sacroiliitis[ICD9: 720.2] Sarah Gillis MD [facility] CPT-4: 96993 07/09/2012 ([id number]) 66798 EST. 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 02/14/2018 Appointment: (15 min) Moderate 02/14/2018 Patient Education: Patient [...] for effectiveness. 11/14/2017 Appointment: Mary Gonzalez WPtel: [facility]5 [facility] (30 min) Complex 11/14/2017 Patient Education: Patient [...] for effectiveness. 08/13/2017 Appointment: Mary Gonzalez WPtel: [facility] [place] (30 min) Complex 08/13/2017 Patient Education: Patient [...] for effectiveness. 05/21/2017 Appointment: Mary Gonzalez WPtel: [phone] [facility] (30 min) Complex 05/21/2017 Patient Education: Patient [...] effectiveness. 05/07/2017 Appointment: Mary Gonzalez WPtel: [phone] [facility] (30 min) Complex 05/07/2017 Patient Education: Patient Medication Summary Completed 05/07/2017 [phone] ([facility]) Moderate 02/05/2017 Visit Plan: Hypertension [...] 3 weeks 01/08/2017 Appointment: Sarah Gillis WPtel: [phone] [facility] (15 min) Moderate 01/08/2017 Patient Education: Patient [...] effectiveness. 01/07/2017 Appointment: Mary Gonzalez WPtel: [phone] [facility] [place] [facility] (10 min) Simple 01/07/2017 Patient Education: Patient [...] medications. 11/07/2016 Appointment: [phone] (15 min) Moderate 11/07/2016 Patient Education: Patient Medication Summary Completed 11/07/2016 Appointment: Sarah Gillis WPtel: [phone] [facility] (15 min) Moderate 10/24/2016 Visit Plan: [...] to medications. 07/26/2016 Appointment: [phone] ([facility] min) Moderate 07/26/2016 Patient Education: Patient [...] supportive care. 04/25/2016 Appointment: [facility] Gillis [facility] (15 min) Moderate 04/25/2016 Patient Education: Patient Medication Summary Completed 04/25/2016 Appointment: [phone] (30 min) Complex 04/03/2016 Visit Plan: Hypertension [...] Summary Completed 10/04/2015 Appointment: [phone] ([facility] min) Complex 09/28/2015 Patient Education: Patient [...] want medication - will monitor symptoms. 06/29/2015 Visit Plan: Hypertension - well controlled [...] start on depakote 125mg at hs 06/29/2015 Appointment: [phone] ([facility] min) Complex 06/29/2015 Patient Education: Patient [...] Hypertension Completed 02/07/2015 Appointment: [phone] Follow up 06/28/2014 Appointment: Injection 04/23/2014 Patient [...] TIMES DAILY. 03/30/2014 Appointment: [phone] Follow up 03/30/2014 Patient Education: Patient Medication [...] home. 12/24/2013 Appointment: [phone] Follow up 12/24/2013 Patient Education: Patient Medication [...] and 3.5. 11/27/2013 Appointment: Katy Shore WPtel: [phone] [phone] [place] Other 11/27/2013 Patient Education: Patient Medication Summary Completed 11/27/2013 Visit Plan: Hypertension - well controlled - continue with current medications, continue with no added salt diet. Pt has been encouraged to exercise daily. The pt has been advised to call the office if there are any acute concerns about change in blood pressure readings at home. 08/27/2013 Appointment: Sarah Gillis WPtel: [phone] [facility] Follow up 08/27/2013 Patient Education: Patient Medication [...] of inflammation 05/20/2013 Appointment: Sarah Gillis WPtel: [phone] [facility] Sick 05/20/2013 Patient Education: Patient Medication [...] at home. 03/10/2013 Appointment: Sarah Gillis WPtel: [address] [place], [place] [phone] Follow up 03/10/2013 Patient Education: Patient Medication Summary Completed 03/10/2013 Patient Education: Hypertension Completed 03/10/2013 Appointment: Sarah Gillis WPtel: [address] [place], [place] [phone] Follow up 12/17/2012 Visit Plan: Wound care to lesion -neosporin, call if worsening symptoms - finish antibotics 12/08/2012 Appointment: Sarah Gillis WPtel: [address] [place], [place] [phone] [facility] 12/08/2012 Patient Education: Patient Medication Summary Completed 12/08/2012 Visit Plan: Cellulitis - continue with oral antibiotics as previously directed, return to clinic as previously directed, call for acute change in symptoms, worsening redness, warmth, discharge. on 2nd digit right fot debrided and dressing placed over the wound. Arthritis- occasionally uncontrolled symptoms- Use tylenol for break through pain symptoms. 12/02/2012 Appointment: Sarah Gillis WPtel: [address] [place], [place] [phone] Follow up 12/02/2012 Patient Education: Patient Medication [...] injection today. 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 Patient and verbalized understanding of plan. 08/27/2012 Appointment: Katy Shore WPtel: [address] [place], [place] [phone] Other 08/27/2012 Patient Education: Patient Medication Summary Completed 08/27/2012 Appointment: Sarah Gillis WPtel: [address] [place], [place] [phone] Follow up 07/14/2012 Visit Plan: Hypertension - [...] they worsen. 07/09/2012 Appointment: Sarah Gillis WPtel: [address] [place], [place] [phone] Other 07/09/2012 Patient Education: Patient Medication Summary [...] times daily. 05/19/2012 Appointment: Sarah Gillis WPtel: [address] [place] [phone] Follow up 05/19/2012 Patient Education: Hypertension Completed 05/19/2012 Patient Education: Patient Medication Summary Completed 05/19/2012 Appointment: Sarah Gillis WPtel: [address] [place] [phone] [place] Lab Draw 05/13/2012 Patient Education: Patient Medication [...] pain symptoms. 04/28/2012 Appointment: [phone] [facility] Patient 04/28/2012 Patient Education: Patient Medication Summary Completed 04/28/2012 Patient Education: High Blood Pressure: Essential Hypertension Completed 2011 Appointment: [phone] [facility] [facility] New Patient 10/15/2011 Instructions Comment . HIP [...] the voltaren gel four times daily. . Wound care to lesion -neosporin, call if worsening symptoms - finish antibotics . Bronchitis - acute case of bronchitis identified. Pt has been given antibiotics, breathing treatments as appropriate, and pt has been instructed to call if symptoms are not improved, or if symptoms acutely worsen. cough - pt to continue with otc robitussin - shot of kenalog today for persistent symptoms of inflammation the coumadin 4mg is Saturday/Saturday/Saturday/Saturday the coumadin [...] not want medication - will monitor symptoms. the coumadin 4mg is Saturday/Saturday/Saturday/Saturday the coumadin [...] start on depakote 125mg at hs . Hypertension - well controlled - continue with current medications, continue with no added salt diet. Pt has been encouraged to exercise daily. The pt has been advised to call the office if there are any acute concerns about change in blood pressure readings at home. . Arthritis- occasionally uncontrolled symptoms- recommend pt [...] closely monitor the medications for effectiveness. . Left leg ecchymosis - improving - [...] assure normal liver response to medications. . Bronchitis - Pt has been diagnosed [...] showing more symptoms of memory loss. . Sacroilitis-sciatica - back exercises discussed with [...] with any questions or concerns. . 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
--- OUTSIDE RECORDS SUMMARY | 2018-08-26 10:42 | XMS REPORT | CCD ---
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 Name Role Phone PP Unavailable CCM Unavailable Summary Purpose Interface Exchange Insurance Providers Payer name Policy type / Coverage type Covered constitution party ID Effective Begin Date Effective End Date WPS Medicare Part B Medicare Part B [id number] 2013 Unknown [facility] Medicare Part B [id number] 2013 Unknown Family history Brother Diagnosis Age [...] 2 1 in 2010, 1 lives in [place] 11/07/2016 Marital status Unknown 04/28/2012 Employment Unknown Retired 04/28/[address]: 9253742 Quit over 10 years ago 04/28/[address]: 041500244 Never drinks alcohol 04/28/2012 Allergies, Adverse Reactions, [...] 788.1 ICD-10: R30.0 Active 01/07/2017 Unknown Other correction (current) drug therapy ICD-9: V58.69 ICD-10: Z79.899 [...] ICD-9: 788.1 ICD-10: R30.0 01/07/2017 Active 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 ICD-9: V58.69 ICD-10: Z79.899 [...] Start Date Stop Date Status Fill Instructions hydrochlorothiazide 12.5 mg tablet RxNorm: 352786 1 Tablet(s) PO daily 07/11/2018 02/05/2019 Active Depakote 125 mg tablet,delayed release RxNorm: 8799388 Tablet(s) Tablet(s) 1 Tablet(s) PO QPM 05/16/2018 12/11/2018 Active PLEASE SEND REFILL REQUESTS ELECTRONICALLY pravastatin 40 mg tablet RxNorm: 827919 TAKE ONE TABLET BY MOUTH EVERY DAY 03/17/2018 02/09/2019 Active Generic For:*PRAVACHOL 40 MG TABLET 03/17/2018 8:03:02 AM amlodipine 5 mg tablet RxNorm: 070391 TAKE ONE (1) TABLET BY MOUTH DAILY 02/18/2018 02/12/2019 Active Generic For:NORVASC 5 MG TABLET 02/18/2018 10:12:27 AM Vitamin D3 5,000 unit tablet RxNorm: 114912 1 Tablet(s) PO daily 02/14/2018 08/12/2018 Active may give OTC bottle Vitamin D3 5,000 unit tablet RxNorm: 351305 1 Tablet(s) PO daily 02/14/2018 02/13/2018 Inactive Vitamin D2 50,000 unit capsule RxNorm: 0446642 1 Capsule(s) PO QW 02/14/2018 02/13/2018 Inactive Vitamin D2 50,000 unit capsule RxNorm: 2854961 1 Capsule(s) PO QW x8 weeks then stop 02/14/2018 04/14/2018 Inactive amlodipine 5 mg tablet RxNorm: 461097 1 Tablet(s) PO daily 02/17/2018 Inactive Generic For:NORVASC 5 MG TABLET REFILL REQUEST 08/27/2016 10:47:17 AM Coumadin 5 mg tablet RxNorm: 199304 1 Tablet(s) PO daily except 1/2 Tab on Sat, Sat12/16/2017 06/15/2018 Inactive hydrochlorothiazide 12.5 mg tablet RxNorm: 679628 1 Tablet(s) PO daily 12/16/2017 07/10/2018 Inactive hydrochlorothiazide 12.5 mg tablet RxNorm: 571267 Tablet(s) Tablet(s) 1 Tablet(s) PO daily 11/18/2017 12/15/2017 Inactive PLEASE SEND REFILL REQUESTS ELECTRONICALLY Depakote 125 mg tablet,delayed release RxNorm: 8979509 Tablet(s) Tablet(s) 1 Tablet(s) PO QPM 10/17/2017 05/14/2018 Inactive PLEASE SEND REFILL REQUESTS ELECTRONICALLY hydrochlorothiazide 12.5 mg tablet RxNorm: 657686 Tablet(s) Tablet(s) 1 Tablet(s) PO daily 10/17/2017 11/17/2017 Inactive PLEASE SEND REFILL REQUESTS ELECTRONICALLY Coumadin 5 mg tablet RxNorm: 428993 1 Tablet(s) daily TAKE 1 TABLET BY MOUTH DAILY 08/15/2017 12/15/2017 Inactive Coumadin 5 mg tablet RxNorm: 986906 Tablet(s) TAKE 1 TABLET BY MOUTH DAILY 06/24/2017 08/14/2017 Inactive pravastatin 40 mg tablet RxNorm: 264545 Tablet(s) TAKE ONE TABLET BY MOUTH EVERY DAY 05/27/2017 03/16/2018 Inactive Voltaren 1 % topical gel RxNorm: 219646 4 Gram(s) TOP QID 05/2106/19/2017 Inactive Depakote 125 mg tablet,delayed release RxNorm: 2981269 Tablet(s) 1 Tablet(s) PO QPM 04/22/2017 10/16/2017 Inactive hydrochlorothiazide 12.5 mg tablet RxNorm: 595656 Tablet(s) 1 Tablet(s) PO daily 03/22/2017 10/16/2017 Inactive amlodipine 5 mg tablet RxNorm: 278036 1 Tablet(s) PO daily 02/12/2018 Inactive Generic For:NORVASC 5 MG TABLET REFILL REQUEST 08/27/2016 10:47:17 AM cephalexin 500 mg tablet RxNorm: 866731 1 Tablet(s) PO TID 01/17/2017 Inactive cephalexin 500 mg tablet RxNorm: 296554 1 Tablet(s) PO TID 01/07/2017 Inactive Coumadin 5 mg tablet RxNorm: 794791 TAKE 1 TABLET BY MOUTH DAILY EXCEPT 1/2 TABLET ON SATURDAY AND Saturday12/26/2016 06/23/2017 Inactive Generic For:COUMADIN 5MG TAB 12/26/2016 9:17:49 AM N O T I C E Last quantity doesn't match original quantity Depakote 125 mg tablet,delayed release RxNorm: 5533989 Tablet(s) 1 Tablet(s) PO QPM 10/25/2016 04/21/2017 Inactive Coumadin 5 mg tablet RxNorm: 329474 TAKE 1 TABLET BY MOUTH DAILY EXCEPT 1/2 TABLET ON SATURDAY AND Saturday09/27/2016 12/25/2016 Inactive Generic For:COUMADIN 5MG TAB N O T I C E Last quantity doesn't match original quantity REFILL REQUEST 09/27/2016 9:43:11 AM Coumadin 4 mg tablet RxNorm: 208680 Tablet(s) as doctor directed TAKE 1 TABLET 4 days per week 09/27/2016 04/24/2017 Inactive Generic For:COUMADIN 4MG TAB amlodipine 5 mg tablet RxNorm: 159548 TAKE 1 TABLET BY MOUTH DAILY 08/27/2016 09/26/2016 Inactive Generic For:NORVASC 5 MG TABLET REFILL REQUEST 08/27/2016 10:47: 17 AM hydrochlorothiazide 12.5 mg tablet RxNorm: 778111 Tablet(s) 1 Tablet(s) PO daily 08/27/2016 03/21/2017 Inactive pravastatin 40 mg tablet RxNorm: 261765 Tablet(s) TAKE ONE TABLET BY MOUTH EVERY DAY 06/29/2016 05/24/2017 Inactive Coumadin 5 mg tablet RxNorm: 041738 1 Tablet(s) PO daily except 1/2 tab on Tu, Sat06/14/2016 09/26/2016 Inactive Coumadin 5 mg tablet RxNorm: 673862 1 Tablet(s) PO daily except 1/2 tab on Tu, Sat06/12/2016 12/08/2016 Inactive Depakote 125 mg tablet,delayed release RxNorm: 6232305 1 Tablet(s) PO QPM 04/30/2016 10/24/2016 Inactive amlodipine 5 mg tablet RxNorm: 058450 Tablet(s) TAKE ONE TABLET BY MOUTH EVERY DAY 03/06/2016 08/26/2016 Inactive Generic For:NORVASC 5 MG TABLET 2015 9:02 :57 AM N O T I C E Last quantity doesn't match original quantity hydrochlorothiazide 12.5 mg tablet RxNorm: 728268 1 Tablet(s) PO daily 02/01/2016 08/26/2016 Inactive Coumadin 5 mg tablet RxNorm: 839045 1 Tablet(s) PO daily except 1/2 tab on Tu, 12/26/2015 06/11/2016 Inactive Coumadin 5 mg tablet RxNorm: 443289 TAKE 1 TABLET BY MOUTH 3 DAYS PER WEEK (TUE, THUR, SAT) 11/10/2015 12/25/2015 Inactive Generic For:COUMADIN 5MG TAB PT SAYS TAKING DIFFERENT NOW...WE NEED NEW RX PLEASE Coumadin 5 mg tablet RxNorm: 424338 Tablet(s) TAKE 1 TABLET BY MOUTH 5 DAYS PER WEEK Sun Sat11/04/201511/08 Inactive Generic For:COUMADIN 5MG TAB 10/04/2015 10:19:46 AM Depakote 125 mg tablet,delayed release RxNorm: 8261063 1 Tablet(s) PO QPM 11/04/2015 04/29/2016 Inactive Coumadin 5 mg tablet RxNorm: 400454 TAKE 1 TABLET BY MOUTH 3 DAYS PER WEEK (SAT, THUR, SAT) 10/04/2015 11/03/2015 Inactive Generic For:COUMADIN 5MG TAB 10/04/2015 10:19:46 AM amlodipine 5 mg tablet RxNorm: 440251 Tablet(s) TAKE ONE TABLET BY MOUTH EVERY DAY 09/12/2015 03/05/2016 Inactive Generic For:NORVASC 5 MG TABLET 2015 9:02 :57 AM N O T I C E Last quantity doesn't match original quantity Coumadin 5 mg tablet RxNorm: 825138 1 Tablet(s) daily 201510/03/2015 Inactive Voltaren 1 % topical gel RxNorm: 422610 4 Gram(s) TOP QID 06/2904/24/2016 Inactive Depakote 125 mg tablet,delayed release RxNorm: 1450288 1 Tablet(s) PO QPM 06/29/2015 10/26/2015 Inactive hydrochlorothiazide 12.5 mg tablet RxNorm: 186185 1 Tablet(s) PO daily 06/29/2015 01/24/2016 Inactive Depakote 125 mg tablet,delayed release RxNorm: 3074454 1 Tablet(s) PO QPM 06/29/2015 06/28/2015 Inactive pravastatin 40 mg tablet RxNorm: 896634 Tablet(s) TAKE ONE TABLET BY MOUTH EVERY DAY 06/29/2015 06/28/2016 Inactive Generic For:*PRAVACHOL 40 MG TABLET Coumadin 5 mg tablet RxNorm: 154092 1 Tablet(s) PO SAT, THUR, SAT 3 days per week 05/09/2015 06/30/2015 Inactive take 4mg on sun sat amlodipine 5 mg tablet RxNorm: 949525 TAKE ONE TABLET BY MOUTH EVERY DAY 2015 09/06/2015 Inactive Generic For:NORVASC 5 MG TABLET 2015 9:02:57 AM N O T I C E Last quantity doesn't match original quantity Coumadin 5 mg tablet RxNorm: 069299 1 Tablet(s) PO LAURA CLARKE, SAT 3 days per week 11/15/2014 05/08/2015 Inactive take 4mg on sun sat Coumadin 4 mg tablet RxNorm: 107134 Tablet(s) as doctor directed TAKE 1 TABLET 4 days per week 11/15/2014 06/12/2015 Inactive Generic For:COUMADIN 4MG TAB Coumadin 5 mg tablet RxNorm: 469985 1 Tablet(s) PO DARRELL, [facility], 10/27/2014 11/14/2014 Inactive TAKE 4MG ON SUN Sat [SAVINGS FOR NON-COVERED DRUGS -- BIN: 718882, PCN: ASPROD1, Group: XXXXX, ID# [id number], Questions: . THIS IS NOT INSURANCE.] Coumadin 5 mg tablet RxNorm: 835235 1 Tablet(s) PO VINCE, LAURA, 10/27/2014 10/26/2014 Inactive amlodipine 5 mg tablet RxNorm: 743338 1 Tablet(s) PO daily 03/10/2015 Inactive Generic For:NORVASC 5 MG TABLET Generic For:NORVASC 5 MG TABLET 2012 8:54:53 AM pravastatin 40 mg tablet RxNorm: 037851 TAKE ONE TABLET BY MOUTH EVERY DAY 08/12/2014 06/28/2015 Inactive Generic For:*PRAVACHOL 40 MG TABLET Coumadin 4 mg tablet RxNorm: 007343 TAKE 1 TABLET BY MOUTH DAILY 08/12/2014 11/14/2014 Inactive Generic For:COUMADIN 4MG TAB pravastatin 40 mg tablet RxNorm: 890185 1 Tablet(s) PO daily TAKE ONE TABLET BY MOUTH EVERY DAY 08/11/2014 08/11/2014 Inactive Generic For:*PRAVACHOL 40 MG TABLET Generic For:*PRAVACHOL 40 MG TABLET Coumadin 4 mg tablet RxNorm: 434140 Tablet(s) PO TAKE ONE TABLET BY MOUTH EVERY DAY 08/11/2014 08/11/2014 Inactive Generic For:COUMADIN 4MG TAB Generic For: COUMADIN 4MG TAB [SAVINGS FOR NON-COVERED DRUGS -- BIN:333459, N: ASPROD1, Group: XXXXX, ID# [id number], Questions: . THIS IS NOT INSURANCE.] amlodipine 5 mg tablet RxNorm: 240084 1 Tablet(s) daily 1 Tablet(s) PO daily TAKE ONE (1) TABLET BY MOUTH DAILY 05/12/2014 09/13/2014 Inactive Generic For:NORVASC 5 MG TABLET Generic For:NORVASC 5 MG TABLET 05/18/2013 8:54:53 AM amlodipine 5 mg tablet RxNorm: 995377 1 Tablet(s) PO daily TAKE ONE (1) TABLET BY MOUTH DAILY 01/14/2014 05/11/2014 Inactive Generic For:NORVASC 5 MG TABLET Generic For:NORVASC 5 MG TABLET 05/18/2013 8:54:53 AM Coumadin 4 mg tablet RxNorm: 246303 TAKE 1 TABLET BY MOUTH DAILY 01/14/2014 08/11/2014 Inactive Generic For:COUMADIN 4MG TAB amlodipine 5 mg tablet RxNorm: 342751 1 Tablet(s) PO daily TAKE ONE (1) TABLET BY MOUTH DAILY 01/14/2014 01/08/2015 Inactive Generic For:NORVASC 5 MG TABLET Generic For:NORVASC 5 MG TABLET 05/18/2013 8:54:53 AM amlodipine 5 mg tablet RxNorm: 355418 1 Tablet(s) PO daily TAKE ONE (1) TABLET BY MOUTH DAILY 09/18/2013 01/13/2014 Inactive Generic For:NORVASC 5 MG TABLET Generic For:NORVASC 5 MG TABLET 05/18/2013 8:54:53 AM Coumadin 4 mg tablet RxNorm: 834606 4mg daily Tablet(s) PO daily 07/30/2013 01/13/2014 Inactive Generic For:COUMADIN 4MG TAB pravastatin 40 mg tablet RxNorm: 394307 Tablet(s) PO TAKE ONE TABLET BY MOUTH EVERY DAY 07/20/2013 08/10/2014 Inactive Generic For:*PRAVACHOL 40 MG TABLET Generic For:*PRAVACHOL 40 MG TABLET Kenalog 40 mg/mL suspension for injection RxNorm: 5053669 Milliliter(s) Inj 05/20/2013 05/20/2013 Inactive azithromycin 500 mg tablet RxNorm: 9128832 1 Tablet(s) PO daily 05/20/2013 05/24/2013 Inactive amlodipine 5 mg tablet RxNorm: 658658 Tablet(s) PO TAKE ONE (1) TABLET BY MOUTH DAILY 05/18/2013 05/17/2013 Inactive Generic For:NORVASC 5 MG TABLET Generic For: NORVASC 5 MG TABLET 05/18/2013 8:54:53 AM amlodipine 5 mg tablet RxNorm: 453940 1 Tablet(s) PO daily TAKE ONE (1) TABLET BY MOUTH DAILY 05/18/2013 09/17/2013 Inactive Generic For:NORVASC 5 MG TABLET Generic For:NORVASC 5 MG TABLET 05/18/2013 8:54:53 AM Coumadin 4 mg tablet RxNorm: 493568 2mg wed 4 mg other Tablet(s) PO daily 04/28/2013 07/29/2013 Inactive Generic For:COUMADIN 4MG TAB Coumadin 4 mg tablet RxNorm: 157696 4mg daily Tablet(s) PO daily 04/16/2013 04/27/2013 Inactive Generic For:COUMADIN 4MG TAB Rocephin 500 mg solution for injection RxNorm: 363373 Inj 04/1604/16/2013 Inactive amoxicillin 500 mg tablet RxNorm: 844021 1 Tablet(s) PO TID 04/22/2013 Inactive Coumadin 4 mg tablet RxNorm: 101154 Tablet(s) PO TAKE ONE TABLET BY MOUTH EVERY DAY 04/16/2013 08/10/2014 Inactive Generic For:COUMADIN 4MG TAB Generic For: COUMADIN 4MG TAB Coumadin 4 mg tablet RxNorm: 696857 4mg daily Tablet(s) PO daily 03/18/2013 04/15/2013 Inactive Generic For:COUMADIN 4MG TAB Coumadin 4 mg tablet RxNorm: 703953 2mg on tuesdays, 4mg others Tablet(s) PO daily 03/10/2013 03/17/2013 Inactive Generic For:COUMADIN 4MG TAB Influenza Virus Vaccine 0.5 mL RxNorm: IM 03/10/2013 03/10/2013 Inactive amlodipine 5 mg tablet RxNorm: 457289 Tablet(s) PO TAKE ONE (1) TABLET BY MOUTH DAILY 01/22/2013 05/17/2013 Inactive Generic For:NORVASC 5 MG TABLET 01/22/2013 9: 42:13 AM cephalexin 500 mg tablet RxNorm: 788506 1 Tablet(s) PO TID 12/08/2012 Inactive amlodipine 5 mg tablet RxNorm: 606767 Tablet(s) PO TAKE ONE (1) TABLET BY MOUTH DAILY 09/22/2012 01/21/2013 Inactive Generic For:NORVASC 5 MG TABLET 09/20/2012 9: 10AM Nicole is wanting to waste picker Saturday. Thank you! Coumadin 4 mg tablet RxNorm: 626081 1 Tablet(s) PO daily TAKE ONE TABLET BY MOUTH EVERY DAY 09/15/2012 03/09/2013 Inactive Generic For:COUMADIN 4MG TAB Coumadin 4 mg tablet RxNorm: 561478 Tablet(s) PO TAKE ONE TABLET BY MOUTH EVERY DAY 09/12/2012 09/14/2012 Inactive Generic For:COUMADIN 4MG TAB Coumadin 4 mg tablet RxNorm: 322027 1 Tablet(s) PO daily 201209/11/2012 Inactive new dose Coumadin 4 mg tablet RxNorm: 659707 1 Tablet(s) PO daily 201207/15/2012 Inactive Coumadin 3 mg tablet RxNorm: 795479 1 1/2 Tablet(s) PO daily 07/16/2012 Inactive pravastatin 40 mg tablet RxNorm: 733304 1 Tablet(s) PO daily 07/19/2013 Inactive Coumadin 3 mg tablet RxNorm: 212043 1 1/2 Tablet(s) PO daily 07/15/2012 Inactive amlodipine 5 mg tablet RxNorm: 129835 1 Tablet(s) PO daily 05/201209/21/2012 Inactive Voltaren 1 % Topical Gel RxNorm: 273874 4 Gram(s) TOP QID 04/2805/27/2012 Inactive Chikis 180 mg tablet RxNorm: 795941 1 Tablet(s) PO daily No Start Date Active hydrochlorothiazide 12.5 mg tablet RxNorm: 471797 1 Tablet(s) PO daily No Start Date 06/28/2015 Inactive Ziac 2.5 mg-6.25 mg tablet RxNorm: 757159 1 Tablet(s) PO daily No Start Date 09/15/2013 Inactive Coumadin 3 mg tablet RxNorm: 816954 Tablet(s) PO No Start Date 04/30/2012 Inactive pravastatin 40 mg tablet RxNorm: 241963 1 Tablet(s) PO daily No Start Date 06/25/2012 Inactive Medication Administered Medication Codes Instructions Start Date Status Kenalog 40 mg/mL suspension for injection RxNorm: 3434526 Milliliter 05/20/2013 No longer Active Rocephin 500 mg solution for injection RxNorm: 124356 04/16/2013 No longer Active Influenza Virus Vaccine 0.5 mL RxNorm: 03/10/2013 No longer Active Immunizations Vaccine Codes Date Status Influenza CVX: 141 03/25/2015 completed Influenza CVX: 141 04/23/2014 completed Influenza CVX: 141 03/10/2013 completed Influenza CVX: 141 04/28/2012 completed Pneumococcal (Adult) CVX: 33 03/17/2011 completed Assessments Condition Codes Effective Dates Unsteadiness on feet ICD-10: R26.81 ICD-9: 781.2 02/14/2018 Encounter for therapeutic drug level monitoring ICD-10: Z51.81 ICD-9: V58.61 02/14/2018 Essential (primary) hypertension ICD-10: I10 ICD-9: 401.1 02/14/2018 Unspecified dementia with behavioral disturbance ICD-10: F03.91 ICD-9: 294.21 02/14/2018 Vitamin D deficiency, unspecified ICD-10: E55.9 ICD-9: 268.9 02/14/2018 Pain in left hip ICD-10: M25.552 ICD-9: 719.45 02/14/2018 Abnormal weight loss ICD-10: R63.4 ICD-9: 783.21 12/09/2017 Dementia in other diseases classified elsewhere without behavioral disturbance ICD-10: F02.80 ICD-9: 294.10 11/14/2017 Localized edema ICD-10: R60.0 ICD-9: 782.3 08/13/2017 Gastro-esophageal reflux disease without esophagitis ICD-10 : K21.9 ICD-9: 530.81 05/07/2017 Urinary tract infection, site not specified ICD-10: N39.0 ICD-9: 599.0 01/08/2017 Mixed hyperlipidemia ICD-10: E78.2 ICD-9: 272.2 01/08/2017 Essential (primary) hypertension ICD-10: I10 ICD-9: 401.9 01/08/2017 Dysuria ICD-10: R30.0 ICD-9: 788.1 01/07/2017 Other correction (current) drug therapy ICD-10: Z79.899 ICD-9: V58.69 01/07/2017 Actinic keratosis ICD-10: L57.0 ICD-9: 702.0 11/07/2016 Mixed hyperlipidemia ICD-10: E78.2 ICD-9: 272.4 11/07/2016 Cervical disc disorder, unspecified, unspecified cervical region ICD-10: M50.90 ICD-9: 722.91 10/04/2015 Cervicalgia ICD-10: M54.2 ICD-9: 723.1 10/04/2015 Anemia, unspecified ICD-10: D64.9 ICD-9: 285.9 08/01/2015 Encounter for immunization ICD-10: Z23 ICD-9: V04.81 03/25/2015 ESSENTIAL HYPERTENSION ICD-9: 401.9 02/17 EDEMA ICD-9: 782.3 02/17/2015 Osteoarthritis ICD-9: 715.90 02/17/2015 Left hip pain ICD-9: 719.45 02/17/2015 ENCNTR LONG-ANTICOAG USE ICD-9: V58.61 SCIATICA ICD-9: 724.3 12/24/2013 Sacroiliitis ICD-9: 720.2 12/01/2013 COUGH ICD-9: 786.2 05/20/2013 Acute bronchitis ICD-9: 466.0 05/20/2013 Memory loss ICD-9: 780.93 04/30/2013 Confusion ICD-9: 298.9 04/30/2013 VACCIN FOR INFLUENZA ICD-9: V04.81 2012 BLISTER FOOT/TOE ICD-9: 917.2 12/08/2012 CELLULITIS OF FOOT ICD-9: 682.7 2012 Back disorder ICD-9: 724.9 10/08/2012 MERALGIA PARESTHETICA ICD-9: 355.1 2012 Disc disorder ICD-9: 722.90 10/08/2012 Bruising ICD-9: 924.9 08/27/2012 ENTHESOPATHY OF HIP [...] Code Item Item Code Result Date Pt Jeb9319 PT 30.3 seconds 07/18/2018 Pt Ors9642 INR 2.9 07/18/2018 Pt Eoc2984 Low Intensity - 1.5-2.0 07/18/2018 Pt Bnh0289 Mod intensity - 2.0-3.0 07/18/2018 Pt Eib5142 Hi intensity - 3.0-4.0 07/18/2018 Pt Zim9526 PT 32.5 seconds 06/20/2018 Pt Wjh7538 INR 3.2 06/20/2018 Pt Vmp5084 Low Intensity - 1.5-2.0 06/20/2018 Pt Gdc4539 Mod intensity - 2.0-3.0 06/20/2018 Pt Ipe2495 Hi intensity - 3.0-4.0 06/20/2018 Pt Uhm0243 PT 30.3 seconds 05/19/2018 Pt Lrf6194 INR 2.9 05/19/2018 Pt Tff9953 Low Intensity - 1.5-2.0 05/19/2018 Pt Tbo4280 Mod intensity - 2.0-3.0 05/19/2018 Pt Uvf6951 Hi intensity - 3.0-4.0 05/19/2018 Pt Pex8295 PT 28.9 seconds 04/18/2018 Pt Upf9479 INR 2.8 04/18/2018 Pt Jbv1761 Low Intensity - 1.5-2.0 04/18/2018 Pt Oee8706 Mod intensity - 2.0-3.0 04/18/2018 Pt Qyo6714 Hi intensity - 3.0-4.0 04/18/2018 Pt Swg5913 PT 23.6 seconds 03/14/2018 Pt Zrh4469 INR 2.1 03/14/2018 Pt Hbh0244 Low Intensity - 1.5-2.0 03/14/2018 Pt Guw6085 Mod intensity - 2.0-3.0 03/14/2018 Pt Gsq0429 Hi intensity - 3.0-4.0 03/14/2018 Tsh Ord6 [...] 18.8 % 02/14/2018 Cbc With Differential Ord2 Harris% 12.8 % 02/14/2018 Cbc With Differential Ord2 MCH 32.5 pg 02/14/2018 Cbc With Differential Ord2 MCHC 33.0 pg 02/14/2018 Cbc With Differential Ord2 Eos% 1.9 % 02/14/2018 Cbc With Differential Ord2 Baso% 0.2 % 02/14/2018 Cbc With Differential Ord2 PLT 223 K/ul 02/14/2018 Cbc With Differential Ord2 Neut ABS# 3.09 K/ul 02/14/2018 Cbc With Differential Ord2 RDW 14.8 % 02/14/2018 Cbc With Differential Ord2 Lymph ABS# 0.88 K/ul 02/14/2018 Cbc With Differential Ord2 Harris ABS# 0.6 K/ul 02/14/2018 Cbc With Differential Ord2 Eos ABS# 0.1 K/ul 02/14/2018 Cbc With Differential Ord2 Baso ABS# 0.0 K/ul 02/14/2018 Comp Metabolic Kmy014 NA 142 mEq/L 02/14/2018 Comp Metabolic Sed599 K 4.0 mEq/L 02/14/2018 Comp Metabolic Egs805 CL 107 mEq/L 02/14/2018 Comp Metabolic Tmb693 CO2 25.0 mEq/L 02/14/2018 Comp Metabolic Dfj340 ANION GAP 14 02/14/2018 Comp Metabolic Uxo734 GLUCOSE 71 mg/dL 02/14/2018 Comp Metabolic Zht351 Creat 0.8 mg/dL 02/14/2018 Comp Metabolic Xrc639 eGFR 77 ml/min/1.73m2 02/14/2018 Comp Metabolic Khn794 BUN 11 mg/dL 02/14/2018 Comp Metabolic Gkm556 B/C Ratio 14.5 Ratio 02/14/2018 Comp Metabolic Gva973 CALCIUM 9.3 mg/dL 02/14/2018 Comp Metabolic Oyp274 ALK PHOS 56 U/L 02/14/2018 Comp Metabolic Ylt700 AST(SGOT) 13 U/L 02/14/2018 Comp Metabolic Kvo439 ALT(SGPT) 8 U/L 02/14/2018 Comp Metabolic Cwj094 BILI T 0.7 mg/dL 02/14/2018 Comp Metabolic Tyn947 ALBUMIN 3.7 g/dL 02/14/2018 Comp Metabolic Bpu777 TPRO 6.5 g/dL 02/14/2018 Comp Metabolic Mem131 GLOB 2.8 g/dL 02/14/2018 Comp Metabolic Uxs655 A/G Ratio 1.3 Ratio 02/14/2018 Comp Metabolic Gfg368 Osmo 281 mOsmo 02/14/2018 Pt Lpq7158 PT 26.2 seconds 02/14/2018 Pt Yks7062 INR 2.4 02/14/2018 Pt Ynj6334 Low Intensity - 1.5-2.0 02/14/2018 Pt Qnv4685 Mod intensity - 2.0-3.0 02/14/2018 Pt Kzj2621 Hi intensity - 3.0-4.0 02/14/2018 Vitamin D 25 Oh Quu5707 VITAMIN D, 25 HYDROXY 14.31 ng/mL Valproic Acid Yif816 VALPROIC 20.0 ug/ml 02/14/2018 Pt Otc9282 PT 29.2 seconds 01/16/2018 Pt Nek9529 INR 2.7 01/16/2018 Pt Tfz1440 Low Intensity - 1.5-2.0 01/16/2018 Pt Fno5853 Mod intensity - 2.0-3.0 01/16/2018 Pt Jmm4060 Hi intensity - 3.0-4.0 01/16/2018 Pt Ekt9486 PT 29.1 seconds 12/09/2017 Pt Frq5459 INR 2.7 12/09/2017 Pt Oxj0325 Low Intensity - 1.5-2.0 12/09/2017 Pt Syq7882 Mod intensity - 2.0-3.0 12/09/2017 Pt Dpt2386 Hi intensity - 3.0-4.0 12/09/2017 Pt Bmo2197 PT 25.5 seconds 10/31/2017 Pt Kon1564 INR 2.3 10/31/2017 Pt Piq7531 Low Intensity - 1.5-2.0 10/31/2017 Pt Gfp2336 Mod intensity - 2.0-3.0 10/31/2017 Pt Bml6638 Hi intensity - 3.0-4.0 10/31/2017 Pt Hsr0953 PT 29.5 seconds 10/03/2017 Pt Ann6853 INR 2.8 10/03/2017 Pt Djd0491 Low Intensity - 1.5-2.0 10/03/2017 Pt Pcv5439 Mod intensity - 2.0-3.0 10/03/2017 Pt Ana5959 Hi intensity - 3.0-4.0 10/03/2017 Pt Joc3078 PT 28.1 seconds 08/30/2017 Pt Uab2143 INR 2.6 08/30/2017 Pt Inx1209 Low Intensity - 1.5-2.0 08/30/2017 Pt Xyj3309 Mod intensity - 2.0-3.0 08/30/2017 Pt Aun2663 Hi intensity - 3.0-4.0 08/30/2017 Pt Bcv2122 PT 33.2 seconds 08/15/2017 Pt Aqy4648 INR 3.2 08/15/2017 Pt Rvz0245 Low Intensity - 1.5-2.0 08/15/2017 Pt Kit0433 Mod intensity - 2.0-3.0 08/15/2017 Pt Vlu2702 Hi intensity - 3.0-4.0 08/15/2017 Pt Wum0227 PT 31.5 seconds 07/10/2017 Pt Rqc9122 INR 3.0 07/10/2017 Pt Wld5643 Low Intensity - 1.5-2.0 07/10/2017 Pt Nyb0029 Mod intensity - 2.0-3.0 07/10/2017 Pt Mta0006 Hi intensity - 3.0-4.0 07/10/2017 Pt Aen6369 PT 33.5 seconds 05/31/2017 Pt Clo9551 INR 3.2 05/31/2017 Pt Olg4063 Low Intensity - 1.5-2.0 05/31/2017 Pt Yef8783 Mod intensity - 2.0-3.0 05/31/2017 Pt Lzi0170 Hi intensity - 3.0-4.0 05/31/2017 Pt Pdd6596 PT 32.2 seconds 05/02/2017 Pt Gly9559 INR 3.1 05/02/2017 Pt Yqm0843 Low Intensity - 1.5-2.0 05/02/2017 Pt Wxf4178 Mod intensity - 2.0-3.0 05/02/2017 Pt Cxj7039 Hi intensity - 3.0-4.0 05/02/2017 Pt Hfg2895 PT 26.8 seconds 03/28/2017 Pt Uel6663 INR 2.5 03/28/2017 Pt Vzr4226 Low Intensity - 1.5-2.0 03/28/2017 Pt Mfu9819 Mod intensity - 2.0-3.0 03/28/2017 Pt Kgo4040 Hi intensity - 3.0-4.0 03/28/2017 Pt Mmc3821 PT 26.8 seconds 02/22/2017 Pt Mab1325 INR 2.5 02/22/2017 Pt Cqo0952 Low Intensity - 1.5-2.0 02/22/2017 Pt Eev2152 Mod intensity - 2.0-3.0 02/22/2017 Pt Sxy4616 Hi intensity - 3.0-4.0 02/22/2017 Pt Whm8648 PT 20.1 seconds 02/07/2017 Pt Vts6269 INR 1.7 02/07/2017 Pt Aqp1477 Low Intensity - 1.5-2.0 02/07/2017 Pt Gfa4234 Mod intensity - 2.0-3.0 02/07/2017 Pt Oil2963 Hi intensity - 3.0-4.0 02/07/2017 Culture Urine [id number] URINE CULTURE SEE NOTES 01/10/2017 Culture Urine [id number] Continued Results 01/10/2017 Urine Culture Ucult Complete >100,000 col/ml aerobic growth sent to ref lab 01/08/2017 Valproic Acid (Depakote) S 333392 VALPROIC ACID 20.3 ug/mL 01/08/2017 Pt Oct2631 PT 19.5 seconds 01/07/2017 Pt Iud9582 INR 1.7 01/07/2017 Pt Lvu9301 Low Intensity - 1.5-2.0 01/07/2017 Pt Xtx8440 Mod intensity - 2.0-3.0 01/07/2017 Pt Djj5705 Hi intensity - 3.0-4.0 01/07/2017 Tsh Ord6 hTSH II 2.50 uIU/mL 01/07/2017 [...] 98.0 fl 01/07/2017 Cbc With Differential Ord2 Harris% 10.5 % 01/07/2017 Cbc With Differential Ord2 [...] 0.97 K/ul 01/07/2017 Cbc With Differential Ord2 Harris ABS# 0.5 K/ul 01/07/2017 Cbc With Differential Ord2 Eos ABS# 0.1 K/ul 01/07/2017 Cbc With Differential Ord2 Baso ABS# 0.0 K/ul 01/07/2017 Comp Metabolic Tqd443 NA 142 mEq/L 01/07/2017 Comp Metabolic Huo743 K 4.0 mEq/L 01/07/2017 Comp Metabolic Aht871 CL 105 mEq/L 01/07/2017 Comp Metabolic Llr298 CO2 24.0 mEq/L 01/07/2017 Comp Metabolic Ecr637 ANION GAP 17 01/07/2017 Comp Metabolic Niw780 GLUCOSE 81 mg/dL 01/07/2017 Comp Metabolic Wpv173 Creat 0.8 mg/dL 01/07/2017 Comp Metabolic Mid553 eGFR 72 ml/min/1.73m2 01/07/2017 Comp Metabolic Kfn177 BUN 12 mg/dL 01/07/2017 Comp Metabolic Oja620 B/C Ratio 15.0 Ratio 01/07/2017 Comp Metabolic Ixa170 CALCIUM 9.0 mg/dL 01/07/2017 Comp Metabolic Cui067 ALK PHOS 59 U/L 01/07/2017 Comp Metabolic Ggg369 AST(SGOT) 18 U/L 01/07/2017 Comp Metabolic Zll410 ALT(SGPT) 11 U/L 01/07/2017 Comp Metabolic Sdp318 BILI T 0.6 mg/dL 01/07/2017 Comp Metabolic Yur146 ALBUMIN 3.6 g/dL 01/07/2017 Comp Metabolic Vwc393 TPRO 6.7 g/dL 01/07/2017 Comp Metabolic Xqr559 GLOB 3.1 g/dL 01/07/2017 Comp Metabolic Azv098 A/G Ratio 1.2 Ratio 01/07/2017 Comp Metabolic Ons788 Osmo 282 mOsmo 01/07/2017 Pt Edu4028 PT 22.5 seconds 12/06/2016 Pt Ggu9855 INR 2.1 12/06/2016 Pt Jva6639 Low Intensity - 1.5-2.0 12/06/2016 Pt Vzm2343 Mod intensity - 2.0-3.0 12/06/2016 Pt Pjo6704 Hi intensity - 3.0-4.0 12/06/2016 Pt Ghi8299 PT 20.8 seconds 10/29/2016 Pt Crv1373 INR 1.9 10/29/2016 Pt Map4421 Low Intensity - 1.5-2.0 10/29/2016 Pt Lwt6694 Mod intensity - 2.0-3.0 10/29/2016 Pt Pfj2365 Hi intensity - 3.0-4.0 10/29/2016 Pt Msd6554 PT 21.9 seconds 09/24/2016 Pt Zpa3449 INR 2.0 09/24/2016 Pt Yda8159 Low Intensity - 1.5-2.0 09/24/2016 Pt Ngk8798 Mod intensity - 2.0-3.0 09/24/2016 Pt Dae4631 Hi intensity - 3.0-4.0 09/24/2016 Pt Hmx6177 PT 21.0 seconds 09/10/2016 Pt Enm0757 INR 1.9 09/10/2016 Pt Psu6684 Low Intensity - 1.5-2.0 09/10/2016 Pt Ihd5897 Mod intensity - 2.0-3.0 09/10/2016 Pt Jed7209 Hi intensity - 3.0-4.0 09/10/2016 Pt Mtj9268 PT 22.8 seconds 08/20/2016 Pt Ofw2250 INR 2.1 08/20/2016 Pt Wjm2266 Low Intensity - 1.5-2.0 08/20/2016 Pt Xcf1045 Mod intensity - 2.0-3.0 08/20/2016 Pt Gns0147 Hi intensity - 3.0-4.0 08/20/2016 Pt Nca3779 PT 19.2 seconds 08/02/2016 Pt Tqe5495 INR 1.7 08/02/2016 Pt Ojn2830 Low Intensity - 1.5-2.0 08/02/2016 Pt Ple5658 Mod intensity - 2.0-3.0 08/02/2016 Pt Uqr3591 Hi intensity - 3.0-4.0 08/02/2016 Pt Azt9062 PT 31.2 seconds 07/12/2016 Pt Pni1706 INR 3.2 07/12/2016 Pt Dco9212 Low Intensity - 1.5-2.0 07/12/2016 Pt Xik5944 Mod intensity - 2.0-3.0 07/12/2016 Pt Nng7103 Hi intensity - 3.0-4.0 07/12/2016 Pt Pnf6391 PT 20.3 seconds 07/05/2016 Pt Tjj8488 INR 1.8 07/05/2016 Pt Hbl8349 Low Intensity - 1.5-2.0 07/05/2016 Pt Taz2353 Mod intensity - 2.0-3.0 07/05/2016 Pt Ham2590 Hi intensity - 3.0-4.0 07/05/2016 Pt Vnd0416 PT 22.2 seconds 05/29/2016 Pt Phv7807 INR 2.1 05/29/2016 Pt Dkg7991 Low Intensity - 1.5-2.0 05/29/2016 Pt Kas9258 Mod intensity - 2.0-3.0 05/29/2016 Pt Vlg5998 Hi intensity - 3.0-4.0 05/29/2016 Comp Metabolic Gww201 NA 138 mEq/L 04/25/2016 Comp Metabolic Pvf345 K 4.1 mEq/L 04/25/2016 Comp Metabolic Ohk744 CL 105 mEq/L 04/25/2016 Comp Metabolic Vfj259 CO2 25.0 mEq/L 04/25/2016 Comp Metabolic Dfm740 ANION GAP 12 04/25/2016 Comp Metabolic Syq379 GLUCOSE 89 mg/dL 04/25/2016 Comp Metabolic Lsc129 Creat 0.8 mg/dL 04/25/2016 Comp Metabolic Pps146 eGFR 71 ml/min/1.73m2 04/25/2016 Comp Metabolic Omb554 BUN 14 mg/dL 04/25/2016 Comp Metabolic Ilb479 B/C Ratio 17.3 Ratio 04/25/2016 Comp Metabolic Jvy384 CALCIUM 9.0 mg/dL 04/25/2016 Comp Metabolic Xai552 ALK PHOS 63 U/L 04/25/2016 Comp Metabolic Epv829 AST(SGOT) 15 U/L 04/25/2016 Comp Metabolic Blt813 ALT(SGPT) 9 U/L 04/25/2016 Comp Metabolic Kdw337 BILI T 0.4 mg/dL 04/25/2016 Comp Metabolic Wyx449 ALBUMIN 3.7 g/dL 04/25/2016 Comp Metabolic Mar521 TPRO 6.4 g/dL 04/25/2016 Comp Metabolic Afk309 GLOB 2.7 g/dL 04/25/2016 Comp Metabolic Yoa649 A/G Ratio 1.4 Ratio 04/25/2016 Comp Metabolic Stc510 Osmo 276 mOsmo 04/25/2016 Pt Lex0814 PT 21.9 seconds 04/25/2016 Pt Eyn4789 INR 2.0 04/25/2016 Pt Bal7108 Low Intensity - 1.5-2.0 04/25/2016 Pt Hut6145 Mod intensity - 2.0-3.0 04/25/2016 Pt Wub1990 Hi intensity - 3.0-4.0 04/25/2016 Cbc With Differential Ord2 WBC 4.98 K/ul 04/25/2016 Cbc With Differential Ord2 RBC 4.68 M/ul 04/25/2016 Cbc With Differential Ord2 HGB 15.2 g/dl 04/25/2016 Cbc With Differential Ord2 Neut% 59.3 % 04/25/2016 Cbc With Differential Ord2 HCT 46.3 % 04/25/2016 Cbc With Differential Ord2 MCV 98.9 fl 04/25/2016 Cbc With Differential Ord2 Lymph% 25.9 % 04/25/2016 Cbc With Differential Ord2 MCH 32.5 pg 04/25/2016 Cbc With Differential Ord2 Harris% 12.4 % 04/25/2016 Cbc With Differential Ord2 [...] 1.29 K/ul 04/25/2016 Cbc With Differential Ord2 Harris ABS# 0.6 K/ul 04/25/2016 Cbc With Differential Ord2 Eos ABS# 0.1 K/ul 04/25/2016 Cbc With Differential Ord2 Baso ABS# 0.0 K/ul 04/25/2016 Valproic Acid Lga800 VALPROIC 17.0 ug/ml 04/25/2016 Tsh Ord6 hTSH II 3.38 uIU/mL 04/25/2016 Pt Jyj9479 PT 24.4 seconds 03/27/2016 Pt Ccc9777 INR 2.3 03/27/2016 Pt Ibl6633 Low Intensity - 1.5-2.0 03/27/2016 Pt Nwe8845 Mod intensity - 2.0-3.0 03/27/2016 Pt Hrm2588 Hi intensity - 3.0-4.0 03/27/2016 Pt Kry8394 PT 22.7 seconds 02/24/2016 Pt Vvq5449 INR 2.1 02/24/2016 Pt Pbb0233 Low Intensity - 1.5-2.0 02/24/2016 Pt Qvx8269 Mod intensity - 2.0-3.0 02/24/2016 Pt Wze9182 Hi intensity - 3.0-4.0 02/24/2016 Pt Pqq0305 PT 24.2 seconds 02/10/2016 Pt Huy6845 INR 2.3 02/10/2016 Pt Tkf4068 Low Intensity - 1.5-2.0 02/10/2016 Pt Lrb8317 Mod intensity - 2.0-3.0 02/10/2016 Pt Jhn3123 Hi intensity - 3.0-4.0 02/10/2016 Pt Yub5723 PT 15.7 seconds 01/26/2016 Pt Iud2011 INR 1.3 01/26/2016 Pt Dob4787 Low Intensity - 1.5-2.0 01/26/2016 Pt Olt8246 Mod intensity - 2.0-3.0 01/26/2016 Pt Sft8838 Hi intensity - 3.0-4.0 01/26/2016 Pt Cra8240 PT 22.0 seconds 01/02/2016 Pt Ith5134 INR 2.0 01/02/2016 Pt Taf7150 Low Intensity - 1.5-2.0 01/02/2016 Pt Bpj2194 Mod intensity - 2.0-3.0 01/02/2016 Pt Vxy0237 Hi intensity - 3.0-4.0 01/02/2016 Pt Gpa3491 PT 21.9 seconds 11/30/2015 Pt Dhb8544 INR 2.0 11/30/2015 Pt Jti3483 Low Intensity - 1.5-2.0 11/30/2015 Pt Ywz2713 Mod intensity - 2.0-3.0 11/30/2015 Pt Srj2259 Hi intensity - 3.0-4.0 11/30/2015 Pt Hpz2200 PT 20.0 seconds 10/28/2015 Pt Jex0764 INR 1.8 10/28/2015 Pt Qqz6975 Low Intensity - 1.5-2.0 10/28/2015 Pt Bxt8781 Mod intensity - 2.0-3.0 10/28/2015 Pt Xkq8653 Hi intensity - 3.0-4.0 10/28/2015 Cbc With [...] 17.8 % 09/19/2015 Cbc With Differential Ord2 Harris% 11.4 % 09/19/2015 Cbc With Differential Ord2 MCH 32.2 pg 09/19/2015 Cbc With Differential Ord2 MCHC 33.9 pg 09/19/2015 Cbc With Differential Ord2 Eos% 1.4 % 09/19/2015 Cbc With Differential Ord2 PLT 200 K/ul 09/19/2015 Cbc With Differential Ord2 Baso% 0.4 % 09/19/2015 Cbc With Differential Ord2 Neut ABS# 3.45 K/ul 09/19/2015 Cbc With Differential Ord2 RDW 13.7 % 09/19/2015 Cbc With Differential Ord2 Lymph ABS# 0.89 K/ul 09/19/2015 Cbc With Differential Ord2 Harris ABS# 0.6 K/ul 09/19/2015 Cbc With Differential Ord2 Eos ABS# 0.1 K/ul 09/19/2015 Cbc With Differential Ord2 Baso ABS# 0.0 K/ul 09/19/2015 Cbc With Differential Ord2 New Analyzer Notice Please note new ref ranges starting 06-29-2015 due to implemntation of new five part differential hematolgy analyzer. 09/19/2015 Pt Zja7068 PT 28.3 seconds 09/19/2015 Pt Bnj8662 INR 2.8 09/19/2015 Pt Tlk1744 Low Intensity - 1.5-2.0 09/19/2015 Pt Sub9721 Mod intensity - 2.0-3.0 09/19/2015 Pt Sgd4088 Hi intensity - 3.0-4.0 09/19/2015 Pt Mnh2581 PT 22.5 seconds 08/12/2015 Pt Qpq6183 INR 2.1 08/12/2015 Pt Bmb4787 Low Intensity - 1.5-2.0 08/12/2015 Pt Bmy7693 Mod intensity - 2.0-3.0 08/12/2015 Pt Gjv5864 Hi intensity - 3.0-4.0 08/12/2015 Pt Qvf8869 PT 34.1 seconds 07/29/2015 Pt Znv2934 INR 3.5 07/29/2015 Pt Rbh7973 Low Intensity - 1.5-2.0 07/29/2015 Pt Xkw3186 Mod intensity - 2.0-3.0 07/29/2015 Pt Nqe8761 Hi intensity - 3.0-4.0 07/29/2015 Tsh Ord6 [...] With Differential * RDW 13.9 % 06/29/2015 Pt Fbu2192 PT 14.2 seconds 06/29/2015 Pt Hhh0750 INR 1.1 06/29/2015 Pt Ohl3613 Low Intensity - 1.5-2.0 06/29/2015 Pt Fhz9170 Mod intensity - 2.0-3.0 06/29/2015 Pt Iqq8316 Hi intensity - 3.0-4.0 06/29/2015 Comp Metabolic Ooa431 NA 139 mEq/L 06/29/2015 Comp Metabolic Dlz007 K 3.8 mEq/L 06/29/2015 Comp Metabolic Acz347 CL 105 mEq/L 06/29/2015 Comp Metabolic Ufb965 CO2 21.0 mEq/L 06/29/2015 Comp Metabolic Mvd066 ANION GAP 17 06/29/2015 Comp Metabolic Mcp197 GLUCOSE 78 mg/dL 06/29/2015 Comp Metabolic Gyb607 Creat 0.7 mg/dL 06/29/2015 Comp Metabolic Frg355 eGFR 86 ml/min/1.73m2 06/29/2015 Comp Metabolic Pmj955 BUN 7 mg/dL 06/29/2015 Comp Metabolic Nxd363 B/C Ratio 10.1 Ratio 06/29/2015 Comp Metabolic Rgr702 CALCIUM 9.3 mg/dL 06/29/2015 Comp Metabolic Jwl751 ALK PHOS 84 U/L 06/29/2015 Comp Metabolic Ezx724 AST(SGOT) 17 U/L 06/29/2015 Comp Metabolic Hcm020 ALT(SGPT) 10 U/L 06/29/2015 Comp Metabolic Kli196 BILI T 1.0 mg/dL 06/29/2015 Comp Metabolic Cdz223 ALBUMIN 4.1 g/dL 06/29/2015 Comp Metabolic Hbq715 TPRO 7.0 g/dL 06/29/2015 Comp Metabolic Fkh861 GLOB 2.9 g/dL 06/29/2015 Comp Metabolic Iqr314 A/G Ratio 1.4 Ratio 06/29/2015 Comp Metabolic Bxn169 Osmo 274 mOsmo 06/29/2015 Lipid Ord30 CHOL 205 mg/dL 06/29/2015 Lipid Ord30 HDL 59.0 mg/dl 06/29/2015 Lipid Ord30 TRIG 118 mg/dL 06/29/2015 Lipid Ord30 LDL 122 mg/dL 06/29/2015 Lipid Ord30 C/HDL 3.5 Ratio 06/29/2015 Pt Uvu1762 PT 25.9 seconds 05/16/2015 Pt Lfc7130 INR 2.5 05/16/2015 Pt Wwq1476 Low Intensity - 1.5-2.0 05/16/2015 Pt Ftu0683 Mod intensity - 2.0-3.0 05/16/2015 Pt Hwz1178 Hi intensity - 3.0-4.0 05/16/2015 Pt Ycl7219 PT 28.2 seconds 04/19/2015 Pt Iqa4183 INR 2.7 04/19/2015 Pt Egs7722 Low Intensity - 1.5-2.0 04/19/2015 Pt Aly1660 Mod intensity - 2.0-3.0 04/19/2015 Pt Ahc1433 Hi intensity - 3.0-4.0 04/19/2015 Pt Yos3678 PT 29.7 seconds 02/17/2015 Pt Ium0314 INR 2.9 02/17/2015 Pt Ogb5042 Low Intensity - 1.5-2.0 02/17/2015 Pt Cir8937 Mod intensity - 2.0-3.0 02/17/2015 Pt Wqk6344 Hi intensity - 3.0-4.0 02/17/2015 Comp Metabolic Biv403 NA 136 mEq/L 02/07/2015 Comp Metabolic Irk772 K 4.2 mEq/L 02/07/2015 Comp Metabolic Iez409 CL 105 mEq/L 02/07/2015 Comp Metabolic Mlx229 CO2 23.0 mEq/L 02/07/2015 Comp Metabolic Axc628 ANION GAP 12 02/07/2015 Comp Metabolic Jpt438 GLUCOSE 129 mg/dL 02/07/2015 Comp Metabolic Ong278 Creat 0.9 mg/dL 02/07/2015 Comp Metabolic Fjh423 eGFR 67 ml/min/1.73m2 02/07/2015 Comp Metabolic Alu629 BUN 13 mg/dL 02/07/2015 Comp Metabolic Nvv989 B/C Ratio 15.1 Ratio 02/07/2015 Comp Metabolic Uog034 CALCIUM 9.3 mg/dL 02/07/2015 Comp Metabolic Mpy684 ALK PHOS 79 U/L 02/07/2015 Comp Metabolic Elq922 AST(SGOT) 16 U/L 02/07/2015 Comp Metabolic Fcr540 ALT(SGPT) 10 U/L 02/07/2015 Comp Metabolic Dna421 BILI T 0.5 mg/dL 02/07/2015 Comp Metabolic Vrj242 ALBUMIN 4.0 g/dL 02/07/2015 Comp Metabolic Nse467 TPRO 6.9 g/dL 02/07/2015 Comp Metabolic Vnn202 GLOB 2.9 g/dL 02/07/2015 Comp Metabolic Hmc498 A/G Ratio 1.4 Ratio 02/07/2015 Comp Metabolic Ccj422 Osmo 274 mOsmo 02/07/2015 Tsh Ord6 hTSH II 2.36 uIU/mL 02/07/2015 Pt Plb0693 PT 26.8 seconds 02/07/2015 Pt Jmo8357 INR 2.6 02/07/2015 Pt Ojk4816 Low Intensity - 1.5-2.0 02/07/2015 Pt Wqj9083 Mod intensity - 2.0-3.0 02/07/2015 Pt Wmg0417 Hi intensity - 3.0-4.0 02/07/2015 Cbc With [...] Differential Ord2 RDW 14.5 % 02/07/2015 Pt Brj6796 PT 27.9 seconds 02/04/2015 Pt Asj1788 INR 2.7 02/04/2015 Pt Sbl6133 Low Intensity - 1.5-2.0 02/04/2015 Pt Pvf0129 Mod intensity - 2.0-3.0 02/04/2015 Pt Odl8865 Hi intensity - 3.0-4.0 02/04/2015 Pt Xgt9059 PT 17.2 seconds 01/25/2015 Pt Ytw2647 INR 1.4 01/25/2015 Pt Aes1919 Low Intensity - 1.5-2.0 01/25/2015 Pt Jwl3641 Mod intensity - 2.0-3.0 01/25/2015 Pt Alv4792 Hi intensity - 3.0-4.0 01/25/2015 Pt Bzd7611 PT 20.7 seconds 12/23/2014 Pt Sao6732 INR 1.8 12/23/2014 Pt Ocb1887 Low Intensity - 1.5-2.0 12/23/2014 Pt Hkq1173 Mod intensity - 2.0-3.0 12/23/2014 Pt Oic4116 Hi intensity - 3.0-4.0 12/23/2014 PT/MC [id number] PRO TIME 24.9 SEC 08/27/2012 PT/MC 6472171 INR MCMC 2.2 08/27/2012 PT/MC [id number] PRO TIME 31.1 SEC 05/13/2012 PT/MC 8033568 INR MCMC 3.0 05/13/2012 TSH 6793549 TSH 3.019 uIU/ML 04/30/2012 CHEM 14 6683695 AST 16 U/L 04/30/2012 CHEM 14 7498471 ALT 9 IU/L 04/30/2012 CHEM 14 0731663 BUN 7 MG/DL 04/30/2012 CHEM 14 4778147 ALBUMIN 4.0 GM/DL 04/30/2012 CHEM 14 4967197 CHLORIDE 107 MMOL/L 04/30/2012 CHEM 14 7557442 BILI TOT 0.7 MG/DL 04/30/2012 CHEM 14 8048582 ALK PHOS 68 U/L 04/30/2012 CHEM 14 1909966 SODIUM 142 MMOL/L 04/30/2012 CHEM 14 0838158 CREATININE 0.80 MG/DL 04/30/2012 CHEM 14 7132455 CALCIUM 9.5 MG/DL 04/30/2012 CHEM 14 7419440 POTASSIUM 3.7 MMOL/L 04/30/2012 CHEM 14 6111943 PROT TOT 7.1 GM/DL 04/30/2012 CHEM 14 2131560 GLUCOSE 88 MG/DL 04/30/2012 CHEM 14 0329676 BICARB 27 MMOL/L 04/30/2012 CHEM 14 1026233 ANION GAP 8 MEQ/L 04/30/2012 GFR CALC 2227103 GFR AA >60 ML/MIN 04/30/2012 GFR CALC 6178317 GFR NON-AA >60 ML/MIN 04/30/2012 PT/MC 7278255 PRO TIME 18.5 SEC 04/30/2012 PT/MC 0816840 INR MCMC 1.5 04/30/2012 CBC 6461428 WBC 4.0 10e9/L 04/30/2012 CBC 9085003 RBC 4.94 10e12/L 04/30/2012 CBC 3348603 HGB 15.7 g/dL 04/30/2012 CBC 5710770 HCT DET 47.5 % 04/30/2012 CBC 6450498 MCV 96.2 fL 04/30/2012 CBC 8824133 MCH 31.8 pg 04/30/2012 CBC 8110165 MCHC 33.1 g/dL 04/30/2012 CBC 1050053 PLT 226 10e9/L 04/30/2012 CBC 0074803 MPV 10.9 fL 04/30/2012 CBC 2189298 KOBY % 64.8 % 04/30/2012 CBC 0693890 LY % 22.1 % 04/30/2012 CBC 8398533 MON % 9.5 % 04/30/2012 CBC 7033594 EOS % 3.3 % 04/30/2012 CBC 8385040 BASO % 0.3 % 04/30/2012 CBC 4253691 RDW 13.5 % 04/30/2012 CBC 1832530 ABS KOBY 2.59 10e9/L 04/30/2012 CBC 9858550 ABS LYMPH 0.88 10e9/L 04/30/2012 CBC 4176898 ABS MONO 0.38 10e9/L 04/30/2012 CBC 6209752 ABS EOS 0.13 10e9/L 04/30/2012 CBC 2916070 ABS BASO 0.01 10e9/L 04/30/2012 CBC 1499484 RDW-SD 46.5 fL 04/30/2012 LIPID GRP HDL TEST 47 MG/DL 04/30/2012 LIPID GRP TRIG 131 MG/DL 04/30/2012 LIPID GRP 8518576 TEST LDL 145 MG/DL 04/30/2012 LIPID GRP 7357841 CHOL 218 MG/DL 04/30/2012 LIPID GRP RCHOL/HDL [...] clear 08/13/2017 None Full Exam - General 1995 Eyes conjunctiva /eyelids Overall: cornea clear 08/13/2017 [...] masses 03/30/2014 None Full Exam - General 1995 [...] clear 08/27/2013 None Full Exam - General 1995 Eyes conjunctiva /eyelids Overall: cornea clear 08/27/2013 None Full Exam - General 1995 Eyes conjunctiva /eyelids Overall: eyelids normal 08/27/2013 [...] accomodation 05/19/2012 None Full Exam - General 1995 Ears/Nose/Throat [...] Procedure Codes Date DESTRUCT PREMALG LESION CPT-4: 17071 11/07/2016 ADMIN INFLUENZA VIRUS VAC CPT-4: G0008 03/25/2015 FLU VACC 4 CHANTELLE 3 YRS PLUS IM Formatting Model/CDA Sections, Assigned to SNOMED CT: [id number] CPT-4: [id number] 03/25/2015 ADMIN INFLUENZA VIRUS VAC Assigned to CPT-4: [id number] 04/23/2014 FLU VAC NO PRSV 4 CHANTELLE 3 YRS+ CPT-4: 44338 04/23/2014 TRIAMCINOLONE ACET INJ NOS CPT-4: J3301 05/20/2013 THER/PROPH/DIAG INJ SC/IM CPT-4: 98977 05/20/2013 PRESCRIP TRANSMIT VIA ERX SY CPT-4: G8553 05/20/2013 URINALYSIS NONAUTO W/O SCOPE CPT-4: 57771 04/30/2013 THER/PROPH/DIAG INJ SC/IM CPT-4: 30019 04/16/2013 ROCEPHIN, PER 250 MG CPT-4: J0696 04/16/2013 PRESCRIP TRANSMIT VIA ERX SY CPT-4: G8553 04/16/2013 ADMIN INFLUENZA VIRUS VAC CPT-4: G0008 03/10/2013 FLULAVAL VACC, 3 YRS & >, IM CPT-4: Q2036 03/10/2013 PRESCRIP TRANSMIT VIA ERX SY CPT-4: G8553 12/02/2012 TRIAMCINOLONE ACET INJ NOS CPT-4: J3301 10/08/2012 INJ TRIGGER POINT 1/2 MUSCL CPT-4: 03968 10/08/2012 ROUTINE VENIPUNCTURE CPT-4: 38101 08/27/2012 DRAIN/INJECT JOINT/BURSA CPT-4: 39715 07/09/2012 TRIAMCINOLONE ACET INJ NOS CPT-4: J3301 07/09/2012 ROUTINE VENIPUNCTURE CPT-4: 64618 05/13/2012 ROUTINE VENIPUNCTURE CPT-4: 94716 04/30/2012 PRESCRIP TRANSMIT VIA ERX SY CPT-4: G8553 04/28/2012 Vital Signs Date Vital 02/14/2018 Blood Pressure 1: 130/78 Code : 8480-6 BMI: 24.6 Code : 24427-3 Heart Rate 1 : 64 bpm Height: 5'1" SpO2: 96% Weight: 130 lbs 12/09/2017 BMI: 24.0 Code: 13550-7 Height: 5'1" Weight: 127 lbs 11/14/2017 Blood Pressure 1: 140/74 Code : 8480-6 Heart Rate 1: 78 bpm SpO2: 94% Weight: 127 lbs 08/13/2017 Blood Pressure 1: 120/76 Code : 8480-6 BMI: 24.9 Code : 38149-8 Heart Rate 1 : 76 bpm Height: 5'1" SpO2: 96% Weight: 132 lbs 05/21/2017 Blood Pressure 1: 132/80 Code : 8480-6 BMI: 26.1 Code : 24823-8 Heart Rate 1 : 61 bpm Height: 5'1" SpO2: 92% Weight: 138 lbs 05/07/2017 Blood Pressure 1: 128/70 Code : 8480-6 BMI: 25.9 Code : 88505-1 Heart Rate 1 : 72 bpm Height: 5'1" SpO2: 96% Weight: 137 lbs 01/08/2017 Blood Pressure 1: 136/82 Code : 8480-6 BMI: 25.5 Code : 68310-8 Heart Rate 1 : 75 bpm Height: 5'1" SpO2: 96% Weight: 135 lbs 01/07/2017 Blood Pressure 1: 142/86 Code : 8480-6 BMI: 25.5 Code : 85974-0 Heart Rate 1 : 75 bpm Height: 5'1" SpO2: 95% Weight: 135 lbs 11/07/2016 Blood Pressure 1: 120/80 Code : 8480-6 BMI: 25.5 Code : 09313-9 Heart Rate 1 : 83 bpm Height: 5'1" SpO2: 97% Weight: 135 lbs 07/26/2016 Blood Pressure 1: 140/80 Code : 8480-6 BMI: 27.0 Code : 34199-3 Heart Rate 1 : 68 bpm Height: 5'1" SpO2: 94% Weight: 143 lbs 04/25/2016 Blood Pressure 1: 128/82 Code : 8480-6 BMI: 28.2 Code : 01969-4 Heart Rate 1 : 71 bpm Height: 5'1" SpO2: 98% Weight: 149 lbs 10/04/2015 Blood Pressure 1: 140/80 Code : 8480-6 BMI: 27.8 Code : 37231-8 Heart Rate 1 : 77 bpm Height: 5'1" SpO2: 96% Weight: 147 lbs 06/29/2015 Blood Pressure 1: 134/70 Code : 8480-6 BMI: 26.8 Code : 88483-4 Heart Rate 1 : 68 bpm Height: 5'1" SpO2: 95% Weight: 142 lbs 02/17/2015 Blood Pressure 1: 128/80 Code : 8480-6 Heart Rate 1: 85 bpm Height: 5'1" SpO2: 96% Weight: 02/07/2015 Blood Pressure 1: 130/68 Code : 8480-6 BMI: 28.7 Code : 70205-2 Heart Rate 1 : 80 bpm Height: 5'1" SpO2: 95% Weight: 152 lbs 03/30/2014 Blood Pressure 1: 142/80 Code : 8480-6 BMI: 27.8 Code : 13000-6 Heart Rate 1 : 83 bpm Height: 5'1" SpO2: 95% Weight: 147 lbs 12/24/2013 Blood Pressure 1: 120/80 Code : 8480-6 BMI: 27.8 Code : 79051-7 Heart Rate 1 : 76 bpm Height: 5'1" Weight: 147 lbs 12/01/2013 Blood Pressure 1: 138/82 Code : 8480-6 BMI: 28.0 Code : 25982-1 Heart Rate 1 : 76 bpm Height: 5'1" SpO2: 91% Weight: 148 lbs 11/27/2013 Blood Pressure 1: 140/90 Code : 8480-6 BMI: 28.0 Code : 98565-3 Heart Rate 1 : 76 bpm Height: 5'1" SpO2: 95% Weight: 148 lbs 08/27/2013 Blood Pressure 1: 132/76 Code : 8480-6 BMI: 26.5 Code : 46848-4 Heart Rate 1 : 72 bpm Height: 5'1" Weight: 140 lbs 05/20/2013 Blood Pressure 1: 122/80 Code : 8480-6 BMI: 26.8 Code : 08012-6 Heart Rate 1 : 80 bpm Height: 5'1" SpO2: 98% Temperature: 37.3 (C) / 99.2 (F) Weight: 142 lbs 04/30/2013 Blood Pressure 1: 140/80 Code : 8480-6 BMI: 27.0 Code : 63785-3 Heart Rate 1 : 73 bpm Height: 5'1" SpO2: 93% Temperature: 37.3 (C) / 99.1 (F) Weight: 143 lbs 04/16/2013 Blood Pressure 1: 100/64 Code : 8480-6 BMI: 27.2 Code : 69817-6 Heart Rate 1 : 80 bpm Height: 5'1" SpO2: 97% Temperature: 37.4 (C) / 99.3 (F) Weight: 144 lbs 03/10/2013 Blood Pressure 1: 132/82 Code : 8480-6 BMI: 27.2 Code : 41267-2 Heart Rate 1 : 80 bpm Height: 5'1" Weight: 144 lbs 12/08/2012 Blood Pressure 1: 144/80 Code : 8480-6 Heart Rate 1: 76 bpm Weight: 12/02/2012 Blood Pressure 1: 118/66 Code : 8480-6 BMI: 27.8 Code : 41010-4 Heart Rate 1 : 88 bpm Height: 5'1" Weight: 147 lbs 10/08/2012 Blood Pressure 1: 116/64 Code : 8480-6 BMI: 27.8 Code : 51439-1 Heart Rate 1 : 80 bpm Height: 5'1" Weight: 147 lbs 08/27/2012 Blood Pressure 1: 122/78 Code : 8480-6 BMI: 28.3 Code : 48381-2 Heart Rate 1 : 84 bpm Height: 5'1" Weight: 150 lbs 07/09/2012 Blood Pressure 1: 136/88 Code : 8480-6 Heart Rate 1: 84 bpm Weight: 150 lbs 05/19/2012 Blood Pressure 1: 124/74 Code : 8480-6 Heart Rate 1: 72 bpm Respiratory Rate : 16 bpm Weight: 152 lbs 04/28/2012 Blood Pressure 1: 130/80 Code : 8480-6 BMI: 29.1 Code : 97023-3 Heart Rate 1 : 56 bpm Height: [...] data Encounters Encounter Performer Location Codes Date ( [id number] EST. PATIENT, LEVEL IV Diagnosis: Essential (primary) hypertension[ICD10: I10] Diagnosis: Unspecified dementia with behavioral disturbance[ICD10: F03.91] Diagnosis: Pain in left hip[ICD10: M25.552] Diagnosis: Unsteadiness on feet[ICD10: R26.81] Diagnosis: Vitamin D deficiency, unspecified[ICD10: E55.9] Diagnosis: Encounter for therapeutic drug level monitoring[ICD10: Z51.81] [facility] CPT-4: 37004 02/14/2018 ([id number]) Miscellaneous no charge Diagnosis: Abnormal weight loss[ICD10: R63.4] [facility] CPT-4: 89749 12/09/2017 [id number] EST. 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 PATIENT, LEVEL IV Diagnosis: Essential (primary) hypertension[ICD10: I10] Diagnosis: Urinary tract infection, site not specified[ICD10: N39.0] Diagnosis: Mixed hyperlipidemia[ICD10: E78.2] Sarah Gillis MD [facility] CPT-4: 69983 01/08/2017 [id number] EST. 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 PATIENT, LEVEL IV Diagnosis: Essential (primary) hypertension[ICD10: I10] Diagnosis: Mixed hyperlipidemia[ICD10: E78.2] Diagnosis: Actinic keratosis[ICD10: L57.0] Sarah Gillis MD, [facility] CPT- 4: 48801 11/07/2016 ([id number]) 71716 EST. PATIENT, LEVEL IV Diagnosis: Essential (primary) hypertension[ICD10: I10] Diagnosis: Mixed hyperlipidemia[ICD10: E78.2] Sarah Gillis MD [facility] CPT-4: 71940 07/26/2016 ([id number]) 38455 EST. 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 PATIENT, LEVEL IV Diagnosis: Essential (primary) hypertension[ICD10: I10] Diagnosis: Cervicalgia[ICD10: M54.2] Diagnosis: Cervical disc disorder, unspecified, unspecified cervical region[ ICD10: M50.90] Sarah Gillis MD [facility] CPT-4: 99766 10/04/2015 ([id number]) 40506 EST. PATIENT, LEVEL IV Diagnosis: Encounter for therapeutic drug level monitoring[ICD10: Z51.81] Diagnosis: Mixed hyperlipidemia[ICD10: E78.2] Diagnosis: Essential (primary) hypertension[ICD10: I10] Diagnosis: Localized edema[ICD10: R60.0] Sarah Gillis MD, [facility] CPT- 4: 45165 06/29/2015 ([id number]) 40989 EST. PATIENT, LEVEL IV Diagnosis: ESSENTIAL HYPERTENSION[ICD9: 401.9] Diagnosis: Osteoarthritis[ICD9: 715.90] Diagnosis: Left hip pain[ICD9: 719.45] Diagnosis: EDEMA[ICD9: 782.3] Diagnosis: ENCNTR LONG-ANTICOAG USE[ICD9: V58.61] Sarah Gillis MD [facility] CPT-4: 34099 02/17/2015 ([id number]) 96747 EST. PATIENT, LEVEL IV Diagnosis: ESSENTIAL HYPERTENSION[ICD9: 401.9] Diagnosis: Osteoarthritis[ICD9: 715.90] Diagnosis: EDEMA[ICD9: 782.3] Diagnosis: ENCNTR LONG-ANTICOAG USE[ICD9: V58.61] Diagnosis: Left hip pain[ICD9: 719.45] Katy Gillis MD [facility] CPT-4: 26938 02/07/2015 ([id number]) 05327 EST. PATIENT, LEVEL IV Diagnosis: ESSENTIAL HYPERTENSION[ICD9: 401.9] Diagnosis: Osteoarthritis[ICD9: 715.90] Diagnosis: Hip pain[ICD9: 719.45] Sarah Gillis MD [facility] CPT-4: 98654 03/30/2014 ([id number]) 40933 EST. PATIENT, LEVEL III Diagnosis: ESSENTIAL HYPERTENSION[ICD9: 401.9] Diagnosis: Anticoagulant long-term use[ICD9: V58.61] Diagnosis: SCIATICA[ICD9: 724.3] Sarah Gillis MD [facility] CPT-4: 49599 12/24/2013 ([id number]) 71412 EST. PATIENT, LEVEL III Diagnosis: Sacroiliitis[ICD9: 720.2] Diagnosis: SCIATICA[ICD9: 724.3] Sarah Gillis MD [facility] CPT-4: 84008 12/01/2013 ([id number]) 93622 EST. PATIENT, LEVEL III Diagnosis: EDEMA[ICD9: 782.3] Diagnosis: LONG-TERM USE ANTICOAGUL[ICD9: V58.61] Sarah Gillis MD [facility] CPT-4: 43295 11/27/2013 ([id number]) 93674 EST. PATIENT, LEVEL III Diagnosis: ESSENTIAL HYPERTENSION[SNOMED: [id number]] Sarah Gillis MD [facility] CPT-4: 99820 08/27/2013 ([id number]) 72952 EST. PATIENT, LEVEL III Diagnosis: Acute bronchitis[ICD9: 466.0] Diagnosis: COUGH[ICD9: 786.2] Sarah Gillis MD [facility] CPT-4: 33892 05/20/2013 ([id number]) 43997 EST. PATIENT, LEVEL III Diagnosis: ACUTE BRONCHITIS[ICD9: 466.0] Diagnosis: Memory loss[ICD9: 780.93] Sarah Gillis MD [facility] CPT-4: 40397 04/30/2013 ([id number]) 45562 EST. PATIENT, LEVEL III Diagnosis: ACUTE BRONCHITIS[ICD9: 466.0] Diagnosis: Cough[ICD9: 786.2] Sarah Gillis MD [facility] CPT-4: 90686 04/16/2013 ([id number]) 72777 EST. PATIENT, LEVEL III Diagnosis: ESSENTIAL HYPERTENSION[SNOMED: 75385156] CARLY Edwards MD CPT-4: 68524 03/10/2013 ([id number]) Miscellaneous no charge Diagnosis: BLISTER FOOT/TOE[ICD9: 917.2] Sarah Gillis MD [facility] CPT- 4: 24906 12/08/2012 ([id number]) 74236 EST. PATIENT, LEVEL III Diagnosis: BLISTER FOOT/TOE[ICD9: 917.2] Diagnosis: CELLULITIS OF FOOT[ICD9: 682.7] Diagnosis: Osteoarthritis[ICD9: 715.90] Sarah Gillis MD [facility] CPT- 4: 40071 12/02/2012 ([id number]) 19150 EST. PATIENT, LEVEL III Diagnosis: ESSENTIAL HYPERTENSION[SNOMED: 25931915] Sarah Gillis MD [facility] CPT-4: 43715 10/08/2012 ([id number]) 97755 EST. 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 PATIENT, LEVEL III Diagnosis: ESSENTIAL HYPERTENSION[SNOMED: 02815381] Diagnosis: Sacroiliitis[ICD9: 720.2] Sarah Gillis MD [facility] CPT-4: 41745 07/09/2012 ([id number]) 07586 EST. 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 11/14/2017 Appointment: Mary Gonzalez WPtel: [phone] [facility] (30 min) Complex 11/14/2017 Patient Education: [...] effectiveness. 08/13/2017 Appointment: Mary Gonzalez WPtel: [phone] [facility] [place] (30 min) Complex 08/13/2017 Patient Education: [...] effectiveness. 05/21/2017 Appointment: Mary Gonzalez WPtel: [phone] [facility] [place] (30 min) Complex 05/21/2017 Patient Education: Patient [...] effectiveness. 05/07/2017 Appointment: Mary Gonzalez WPtel: [phone] [facility] (30 min) Complex 05/07/2017 Patient Education: Patient Medication Summary Completed 05/07/2017 Appointment: Sarah Gillis WPtel: [phone] [phone] (15 min) Moderate 02/05/2017 Visit Plan: Hypertension [...] ear -re-eval in 3 weeks 01/08/2017 [phone] ([facility] min) Moderate 01/08/2017 Patient Education: [...] for effectiveness. 01/07/2017 Appointment: Mary Gonzalez WPtel: [phone] [facility] (10 min) Simple 01/07/2017 Patient Education: [...] medications. 11/07/2016 Appointment: Sarah Gillis WPtel: [phone] [facility] (15 min) Moderate 11/07/2016 Patient Education: Patient Medication Summary Completed 11/07/2016 Appointment: Sarah Gillis WPtel: [phone] [facility] (15 min) Moderate 10/24/2016 Visit Plan: Hypertension [...] medications. 07/26/2016 Appointment: Sarah Gillis WPtel: [phone] [facility] (15 min) Moderate 07/26/2016 Patient Education: Patient [...] care. 04/25/2016 Appointment: Sarah Gillis WPtel: [phone] [facility] (15 min) Moderate 04/25/2016 Patient Education: Patient Medication Summary Completed 04/25/2016 Appointment: Sarah Gillis WPtel: [phone] [facility] [place] (30 min) Complex 04/03/2016 Visit Plan: Hypertension [...] Summary Completed 10/04/2015 Appointment: Sarah Gillis WPtel: [phone] [facility] [place] (30 min) Complex 09/28/2015 Patient Education: Patient [...] monitor symptoms. 06/29/2015 Appointment: Sarah Gillis WPtel: [facility] [place] ([facility]) [facility] 06/29/2015 Patient Education: Patient Medication Summary Completed [...] Hypertension Completed 02/07/2015 Appointment: Sarah Gillis WPtel: [facility] [place] Follow up 06/28/2014 Appointment: Injection 04/23/2014 [...] TIMES DAILY. 03/30/2014 Appointment: Sarah Gillis WPtel: [phone] [facility] Follow up 03/30/2014 Patient Education: Patient Medication [...] home. 12/24/2013 Appointment: Sarah Gillis WPtel: [phone] [facility] Follow up 12/24/2013 Patient Education: Patient Medication [...] 3.5. 11/27/2013 Appointment: Katy Shore WPtel: [phone] [phone] [place] Other 11/27/2013 Patient Education: Patient [...] home. 08/27/2013 Appointment: Sarah Gillis WPtel: [phone] [facility] Follow up 08/27/2013 Patient Education: Patient Medication [...] of inflammation 05/20/2013 Appointment: Sarah Gillis WPtel: [phone] [facility] Sick 05/20/2013 Patient Education: Patient Medication Summary [...] at home. 03/10/2013 Appointment: Sarah Gillis WPtel: [facility] [place] Follow up 03/10/2013 Patient Education: Patient Medication Summary Completed 03/10/2013 Patient Education: Hypertension Completed 03/10/2013 Appointment: Sarah Gillis WPtel: [address] [place], [place] [phone] Follow up 12/17/2012 Visit Plan: Wound care to lesion -neosporin, call if worsening symptoms - finish antibotics 12/08/2012 Appointment: Sarah Gillis WPtel: [address] [place], [place] [phone] Other 12/08/2012 Patient Education: Patient Medication Summary [...] pain symptoms. 12/02/2012 Appointment: Sarah Gillis WPtel: [facility] [place] Follow up 12/02/2012 Patient Education: Patient Medication [...] injection today. 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 Patient and verbalized understanding of plan. 08/27/2012 App[facility]ment: [phone] Other 08/27/2012 Patient Education: Patient Medication Summary Completed 08/27/2012 Appointment: [phone] [facility] Follow up 07/14/2012 Visit Plan: Hypertension - [...] worsen. 07/09/2012 Appointment: Sarah Gillis WPtel: [facility] [place] Other 07/09/2012 Patient Education: Patient Medication Summary [...] times daily. 05/19/2012 Appointment: [facility]el: [phone] [facility] [place] Follow up 05/19/2012 Patient Education: Hypertension Completed 05/19/2012 Patient Education: Patient Medication Summary Completed 05/19/2012 Appointment: Sarah Gillis WPtel: [phone] [facility] [place] Lab Draw 05/13/2012 Patient Education: Patient [...] pain symptoms. 04/28/2012 Appointment: Sarah Gillis WPtel: [phone] [facility] New Patient 04/28/2012 Patient Education: Patient Medication Summary Completed 04/28/2012 Patient Education: High Blood Pressure: Essential Hypertension Completed 2011 Appointment: Sarah Gillis WPtel: [phone] [facility] [facility] 10/15/2011 Instructions Comment . Bronchitis [...] INR is between 2.0 and 3.5. . HIP and SI joint pain - [...] pressure readings at home. . Bronchitis - Pt has been diagnosed [...] Arthritis - continue with supportive care. . Sacroilitis-sciatica - back exercises discussed with [...] assure normal liver response to medications. . Hypertension - well controlled - continue [...] with any questions or concerns. . 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
--- OUTSIDE RECORDS SUMMARY | 2018-08-26 10:47 | XMS REPORT | CCD ---
Author Author Sarah Gillis Organization [facility] Address [address] [place] [address] Phone Care Team Providers Care [facility] Name Role Phone PP Unavailable CCM Unavailable Summary Purpose Interface Exchange Insurance Providers Payer name Policy type / Coverage type Covered alliance party ID Effective Begin Date Effective End Date WPS Medicare Part B Medicare Part B [id number] 2013 Unknown [facility] Medicare Part B [id number] 2013 Unknown Family history Brother Diagnosis Age [...] 2 1 in 2010, 1 lives in [place] 11/07/2016 Marital status Unknown 04/28/2012 Employment Unknown Retired 04/28/[address]: 5306300 Quit over 10 years ago 04/28/[address]: 439242924 Never drinks alcohol 04/28/2012 Allergies, Adverse Reactions, [...] 788.1 ICD-10: R30.0 Active 01/07/2017 Unknown Other residential (current) drug therapy ICD-9: V58.69 ICD-10: Z79.899 [...] ICD-9: 788.1 ICD-10: R30.0 01/07/2017 Active 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 ICD-9: V58.69 ICD-10: Z79.899 [...] Fill Instructions hydrochlorothiazide 12.5 mg tablet RxNorm: 572125 1 Tablet(s) PO daily 07/11/2018 02/05/2019 Active Depakote 125 mg tablet,delayed release RxNorm: 6158150 Tablet(s) Tablet(s) 1 Tablet(s) PO QPM 05/16/2018 12/11/2018 Active PLEASE SEND REFILL REQUESTS ELECTRONICALLY pravastatin 40 mg tablet RxNorm: 839563 TAKE ONE TABLET BY MOUTH EVERY DAY 03/17/2018 02/09/2019 Active Generic For:*PRAVACHOL 40 MG TABLET 03/17/2018 8:03:02 AM amlodipine 5 mg tablet RxNorm: 221546 TAKE ONE (1) TABLET BY MOUTH DAILY 02/18/2018 02/12/2019 Active Generic For:NORVASC 5 MG TABLET 02/18/2018 10:12:27 AM Vitamin D3 5,000 unit tablet RxNorm: 396481 1 Tablet(s) PO daily 02/14/2018 08/12/2018 Active may give OTC bottle Vitamin D3 5,000 unit tablet RxNorm: 480934 1 Tablet(s) PO daily 02/14/2018 02/13/2018 Inactive Vitamin D2 50,000 unit capsule RxNorm: 0801010 1 Capsule(s) PO QW 02/14/2018 02/13/2018 Inactive Vitamin D2 50,000 unit capsule RxNorm: 4942727 1 Capsule(s) PO QW x8 weeks then stop 02/14/2018 04/14/2018 Inactive amlodipine 5 mg tablet RxNorm: 179745 1 Tablet(s) PO daily 02/17/2018 Inactive Generic For:NORVASC 5 MG TABLET REFILL REQUEST 08/27/2016 10:47:17 AM Coumadin 5 mg tablet RxNorm: 910621 1 Tablet(s) PO daily except 1/2 Tab on Sat, Sat12/16/2017 06/15/2018 Inactive hydrochlorothiazide 12.5 mg tablet RxNorm: 217009 1 Tablet(s) PO daily 12/16/2017 07/10/2018 Inactive hydrochlorothiazide 12.5 mg tablet RxNorm: 690579 Tablet(s) Tablet(s) 1 Tablet(s) PO daily 11/18/2017 12/15/2017 Inactive PLEASE SEND REFILL REQUESTS ELECTRONICALLY Depakote 125 mg tablet,delayed release RxNorm: 5002702 Tablet(s) Tablet(s) 1 Tablet(s) PO QPM 10/17/2017 05/14/2018 Inactive PLEASE SEND REFILL REQUESTS ELECTRONICALLY hydrochlorothiazide 12.5 mg tablet RxNorm: 437985 Tablet(s) Tablet(s) 1 Tablet(s) PO daily 10/17/2017 11/17/2017 Inactive PLEASE SEND REFILL REQUESTS ELECTRONICALLY Coumadin 5 mg tablet RxNorm: 443999 1 Tablet(s) daily TAKE 1 TABLET BY MOUTH DAILY 08/15/2017 12/15/2017 Inactive Coumadin 5 mg tablet RxNorm: 661338 Tablet(s) TAKE 1 TABLET BY MOUTH DAILY 06/24/2017 08/14/2017 Inactive pravastatin 40 mg tablet RxNorm: 990805 Tablet(s) TAKE ONE TABLET BY MOUTH EVERY DAY 05/27/2017 03/16/2018 Inactive Voltaren 1 % topical gel RxNorm: 151226 4 Gram(s) TOP QID 05/2106/19/2017 Inactive Depakote 125 mg tablet,delayed release RxNorm: 8584072 Tablet(s) 1 Tablet(s) PO QPM 04/22/2017 10/16/2017 Inactive hydrochlorothiazide 12.5 mg tablet RxNorm: 623575 Tablet(s) 1 Tablet(s) PO daily 03/22/2017 10/16/2017 Inactive amlodipine 5 mg tablet RxNorm: 091961 1 Tablet(s) PO daily 02/12/2018 Inactive Generic For:NORVASC 5 MG TABLET REFILL REQUEST 08/27/2016 10:47:17 AM cephalexin 500 mg tablet RxNorm: 171418 1 Tablet(s) PO TID 01/17/2017 Inactive cephalexin 500 mg tablet RxNorm: 984511 1 Tablet(s) PO TID 01/07/2017 Inactive Coumadin 5 mg tablet RxNorm: 182346 TAKE 1 TABLET BY MOUTH DAILY EXCEPT 1/2 TABLET ON SATURDAY AND Saturday12/26/2016 06/23/2017 Inactive Generic For:COUMADIN 5MG TAB 12/26/2016 9:17:49 AM N O T I C E Last quantity doesn't match original quantity Depakote 125 mg tablet,delayed release RxNorm: 1739110 Tablet(s) 1 Tablet(s) PO QPM 10/25/2016 04/21/2017 Inactive Coumadin 5 mg tablet RxNorm: 493643 TAKE 1 TABLET BY MOUTH DAILY EXCEPT 1/2 TABLET ON SATURDAY AND Saturday09/27/2016 12/25/2016 Inactive Generic For:COUMADIN 5MG TAB N O T I C E Last quantity doesn't match original quantity REFILL REQUEST 09/27/2016 9:43:11 AM Coumadin 4 mg tablet RxNorm: 495496 Tablet(s) as doctor directed TAKE 1 TABLET 4 days per week 09/27/2016 04/24/2017 Inactive Generic For:COUMADIN 4MG TAB amlodipine 5 mg tablet RxNorm: 421121 TAKE 1 TABLET BY MOUTH DAILY 08/27/2016 09/26/2016 Inactive Generic For:NORVASC 5 MG TABLET REFILL REQUEST 08/27/2016 10:47: 17 AM hydrochlorothiazide 12.5 mg tablet RxNorm: 234809 Tablet(s) 1 Tablet(s) PO daily 08/27/2016 03/21/2017 Inactive pravastatin 40 mg tablet RxNorm: 422254 Tablet(s) TAKE ONE TABLET BY MOUTH EVERY DAY 06/29/2016 05/24/2017 Inactive Coumadin 5 mg tablet RxNorm: 366462 1 Tablet(s) PO daily except 1/2 tab on Tu, Sat06/14/2016 09/26/2016 Inactive Coumadin 5 mg tablet RxNorm: 930609 1 Tablet(s) PO daily except 1/2 tab on Tu, Sat06/12/2016 12/08/2016 Inactive Depakote 125 mg tablet,delayed release RxNorm: 1844884 1 Tablet(s) PO QPM 04/30/2016 10/24/2016 Inactive amlodipine 5 mg tablet RxNorm: 986841 Tablet(s) TAKE ONE TABLET BY MOUTH EVERY DAY 03/06/2016 08/26/2016 Inactive Generic For:NORVASC 5 MG TABLET 2015 9:02 :57 AM N O T I C E Last quantity doesn't match original quantity hydrochlorothiazide 12.5 mg tablet RxNorm: 876024 1 Tablet(s) PO daily 02/01/2016 08/26/2016 Inactive Coumadin 5 mg tablet RxNorm: 673131 1 Tablet(s) PO daily except 1/2 tab on Tu, 12/26/2015 06/11/2016 Inactive Coumadin 5 mg tablet RxNorm: 055881 TAKE 1 TABLET BY MOUTH 3 DAYS PER WEEK (TUE, THUR, SAT) 11/10/2015 12/25/2015 Inactive Generic For:COUMADIN 5MG TAB PT SAYS TAKING DIFFERENT NOW...WE NEED NEW RX PLEASE Coumadin 5 mg tablet RxNorm: 895052 Tablet(s) TAKE 1 TABLET BY MOUTH 5 DAYS PER WEEK Sun Sat11/04/201511/08 Inactive Generic For:COUMADIN 5MG TAB 10/04/2015 10:19:46 AM Depakote 125 mg tablet,delayed release RxNorm: 8492155 1 Tablet(s) PO QPM 11/04/2015 04/29/2016 Inactive Coumadin 5 mg tablet RxNorm: 659447 TAKE 1 TABLET BY MOUTH 3 DAYS PER WEEK (SAT, THUR, SAT) 10/04/2015 11/03/2015 Inactive Generic For:COUMADIN 5MG TAB 10/04/2015 10:19:46 AM amlodipine 5 mg tablet RxNorm: 243772 Tablet(s) TAKE ONE TABLET BY MOUTH EVERY DAY 09/12/2015 03/05/2016 Inactive Generic For:NORVASC 5 MG TABLET 2015 9:02 :57 AM N O T I C E Last quantity doesn't match original quantity Coumadin 5 mg tablet RxNorm: 983349 1 Tablet(s) daily 201510/03/2015 Inactive Voltaren 1 % topical gel RxNorm: 461105 4 Gram(s) TOP QID 06/2904/24/2016 Inactive Depakote 125 mg tablet,delayed release RxNorm: 4010089 1 Tablet(s) PO QPM 06/29/2015 10/26/2015 Inactive hydrochlorothiazide 12.5 mg tablet RxNorm: 290106 1 Tablet(s) PO daily 06/29/2015 01/24/2016 Inactive Depakote 125 mg tablet,delayed release RxNorm: 4651710 1 Tablet(s) PO QPM 06/29/2015 06/28/2015 Inactive pravastatin 40 mg tablet RxNorm: 196692 Tablet(s) TAKE ONE TABLET BY MOUTH EVERY DAY 06/29/2015 06/28/2016 Inactive Generic For:*PRAVACHOL 40 MG TABLET Coumadin 5 mg tablet RxNorm: 382424 1 Tablet(s) PO SAT, THUR, SAT 3 days per week 05/09/2015 06/30/2015 Inactive take 4mg on sun sat amlodipine 5 mg tablet RxNorm: 059950 TAKE ONE TABLET BY MOUTH EVERY DAY 2015 09/06/2015 Inactive Generic For:NORVASC 5 MG TABLET 2015 9:02:57 AM N O T I C E Last quantity doesn't match original quantity Coumadin 5 mg tablet RxNorm: 571239 1 Tablet(s) PO LAURA CLARKE, SAT 3 days per week 11/15/2014 05/08/2015 Inactive take 4mg on sun sat Coumadin 4 mg tablet RxNorm: 195827 Tablet(s) as doctor directed TAKE 1 TABLET 4 days per week 11/15/2014 06/12/2015 Inactive Generic For:COUMADIN 4MG TAB Coumadin 5 mg tablet RxNorm: 315782 1 Tablet(s) PO DARRELL, [facility], 10/27/2014 11/14/2014 Inactive TAKE 4MG ON SUN Sat [SAVINGS FOR NON-COVERED DRUGS -- BIN: [id number], PCN: [id number], Group: XXXXX, ID# [id number], Questions: . THIS IS NOT INSURANCE.] Coumadin 5 mg tablet RxNorm: 213234 1 Tablet(s) PO VINCE, LAURA, 10/27/2014 10/26/2014 Inactive amlodipine 5 mg tablet RxNorm: 300090 1 Tablet(s) PO daily 03/10/2015 Inactive Generic For:NORVASC 5 MG TABLET Generic For:NORVASC 5 MG TABLET 2012 8:54:53 AM pravastatin 40 mg tablet RxNorm: 613574 TAKE ONE TABLET BY MOUTH EVERY DAY 08/12/2014 06/28/2015 Inactive Generic For:*PRAVACHOL 40 MG TABLET Coumadin 4 mg tablet RxNorm: 345200 TAKE 1 TABLET BY MOUTH DAILY 08/12/2014 11/14/2014 Inactive Generic For:COUMADIN 4MG TAB pravastatin 40 mg tablet RxNorm: 638777 1 Tablet(s) PO daily TAKE ONE TABLET BY MOUTH EVERY DAY 08/11/2014 08/11/2014 Inactive Generic For:*PRAVACHOL 40 MG TABLET Generic For:*PRAVACHOL 40 MG TABLET Coumadin 4 mg tablet RxNorm: 390161 Tablet(s) PO TAKE ONE TABLET BY MOUTH EVERY DAY 08/11/2014 08/11/2014 Inactive Generic For:COUMADIN 4MG TAB Generic For: COUMADIN 4MG TAB [SAVINGS FOR NON-COVERED DRUGS -- BIN:[id number], N: ASPROD1, Group: XXXXX, ID# [id number], Questions: . THIS IS NOT INSURANCE.] amlodipine 5 mg tablet RxNorm: 238648 1 Tablet(s) daily 1 Tablet(s) PO daily TAKE ONE (1) TABLET BY MOUTH DAILY 05/12/2014 09/13/2014 Inactive Generic For:NORVASC 5 MG TABLET Generic For:NORVASC 5 MG TABLET 05/18/2013 8:54:53 AM amlodipine 5 mg tablet RxNorm: 297213 1 Tablet(s) PO daily TAKE ONE (1) TABLET BY MOUTH DAILY 01/14/2014 05/11/2014 Inactive Generic For:NORVASC 5 MG TABLET Generic For:NORVASC 5 MG TABLET 05/18/2013 8:54:53 AM Coumadin 4 mg tablet RxNorm: 696063 TAKE 1 TABLET BY MOUTH DAILY 01/14/2014 08/11/2014 Inactive Generic For:COUMADIN 4MG TAB amlodipine 5 mg tablet RxNorm: 502965 1 Tablet(s) PO daily TAKE ONE (1) TABLET BY MOUTH DAILY 01/14/2014 01/08/2015 Inactive Generic For:NORVASC 5 MG TABLET Generic For:NORVASC 5 MG TABLET 05/18/2013 8:54:53 AM amlodipine 5 mg tablet RxNorm: 872711 1 Tablet(s) PO daily TAKE ONE (1) TABLET BY MOUTH DAILY 09/18/2013 01/13/2014 Inactive Generic For:NORVASC 5 MG TABLET Generic For:NORVASC 5 MG TABLET 05/18/2013 8:54:53 AM Coumadin 4 mg tablet RxNorm: 872772 4mg daily Tablet(s) PO daily 07/30/2013 01/13/2014 Inactive Generic For:COUMADIN 4MG TAB pravastatin 40 mg tablet RxNorm: 789755 Tablet(s) PO TAKE ONE TABLET BY MOUTH EVERY DAY 07/20/2013 08/10/2014 Inactive Generic For:*PRAVACHOL 40 MG TABLET Generic For:*PRAVACHOL 40 MG TABLET Kenalog 40 mg/mL suspension for injection RxNorm: 1550007 Milliliter(s) Inj 05/20/2013 05/20/2013 Inactive azithromycin 500 mg tablet RxNorm: 7631505 1 Tablet(s) PO daily 05/20/2013 05/24/2013 Inactive amlodipine 5 mg tablet RxNorm: 694985 Tablet(s) PO TAKE ONE (1) TABLET BY MOUTH DAILY 05/18/2013 05/17/2013 Inactive Generic For:NORVASC 5 MG TABLET Generic For: NORVASC 5 MG TABLET 05/18/2013 8:54:53 AM amlodipine 5 mg tablet RxNorm: 107925 1 Tablet(s) PO daily TAKE ONE (1) TABLET BY MOUTH DAILY 05/18/2013 09/17/2013 Inactive Generic For:NORVASC 5 MG TABLET Generic For:NORVASC 5 MG TABLET 05/18/2013 8:54:53 AM Coumadin 4 mg tablet RxNorm: 865302 2mg wed 4 mg other Tablet(s) PO daily 04/28/2013 07/29/2013 Inactive Generic For:COUMADIN 4MG TAB Coumadin 4 mg tablet RxNorm: 815849 4mg daily Tablet(s) PO daily 04/16/2013 04/27/2013 Inactive Generic For:COUMADIN 4MG TAB Rocephin 500 mg solution for injection RxNorm: 163523 Inj 04/1604/16/2013 Inactive amoxicillin 500 mg tablet RxNorm: 879840 1 Tablet(s) PO TID 04/22/2013 Inactive Coumadin 4 mg tablet RxNorm: 221437 Tablet(s) PO TAKE ONE TABLET BY MOUTH EVERY DAY 04/16/2013 08/10/2014 Inactive Generic For:COUMADIN 4MG TAB Generic For: COUMADIN 4MG TAB Coumadin 4 mg tablet RxNorm: 753377 4mg daily Tablet(s) PO daily 03/18/2013 04/15/2013 Inactive Generic For:COUMADIN 4MG TAB Coumadin 4 mg tablet RxNorm: 165784 2mg on tuesdays, 4mg others Tablet(s) PO daily 03/10/2013 03/17/2013 Inactive Generic For:COUMADIN 4MG TAB Influenza Virus Vaccine 0.5 mL RxNorm: IM 03/10/2013 03/10/2013 Inactive amlodipine 5 mg tablet RxNorm: 695529 Tablet(s) PO TAKE ONE (1) TABLET BY MOUTH DAILY 01/22/2013 05/17/2013 Inactive Generic For:NORVASC 5 MG TABLET 01/22/2013 9: 42:13 AM cephalexin 500 mg tablet RxNorm: 626965 1 Tablet(s) PO TID 12/08/2012 Inactive amlodipine 5 mg tablet RxNorm: 612160 Tablet(s) PO TAKE ONE (1) TABLET BY MOUTH DAILY 09/22/2012 01/21/2013 Inactive Generic For:NORVASC 5 MG TABLET 09/20/2012 9: 10AM 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 Thank you! Coumadin 4 mg tablet RxNorm: 411152 1 Tablet(s) PO daily TAKE ONE TABLET BY MOUTH EVERY DAY 09/15/2012 03/09/2013 Inactive Generic For:COUMADIN 4MG TAB Coumadin 4 mg tablet RxNorm: 852456 Tablet(s) PO TAKE ONE TABLET BY MOUTH EVERY DAY 09/12/2012 09/14/2012 Inactive Generic For:COUMADIN 4MG TAB Coumadin 4 mg tablet RxNorm: 750334 1 Tablet(s) PO daily 201209/11/2012 Inactive new dose Coumadin 4 mg tablet RxNorm: 024823 1 Tablet(s) PO daily 201207/15/2012 Inactive Coumadin 3 mg tablet RxNorm: 103809 1 1/2 Tablet(s) PO daily 07/16/2012 Inactive pravastatin 40 mg tablet RxNorm: 331069 1 Tablet(s) PO daily 07/19/2013 Inactive Coumadin 3 mg tablet RxNorm: 144781 1 1/2 Tablet(s) PO daily 07/15/2012 Inactive amlodipine 5 mg tablet RxNorm: 862795 1 Tablet(s) PO daily 05/201209/21/2012 Inactive Voltaren 1 % Topical Gel RxNorm: 946047 4 Gram(s) TOP QID 04/2805/27/2012 Inactive Chikis 180 mg tablet RxNorm: 186240 1 Tablet(s) PO daily No Start Date Active hydrochlorothiazide 12.5 mg tablet RxNorm: 340177 1 Tablet(s) PO daily No Start Date 06/28/2015 Inactive Ziac 2.5 mg-6.25 mg tablet RxNorm: 389194 1 Tablet(s) PO daily No Start Date 09/15/2013 Inactive Coumadin 3 mg tablet RxNorm: 350409 Tablet(s) PO No Start Date 04/30/2012 Inactive pravastatin 40 mg tablet RxNorm: 061540 1 Tablet(s) PO daily No Start Date 06/25/2012 Inactive Medication Administered Medication Codes Instructions Start Date Status Kenalog 40 mg/mL suspension for injection RxNorm: 1252009 Milliliter 05/20/2013 No longer Active Rocephin 500 mg solution for injection RxNorm: 741176 04/16/2013 No longer Active Influenza Virus Vaccine 0.5 mL RxNorm: 03/10/2013 No longer Active Immunizations Vaccine Codes Date Status Influenza CVX: 141 03/25/2015 completed Influenza CVX: 141 04/23/2014 completed Influenza CVX: 141 03/10/2013 completed Influenza CVX: 141 04/28/2012 completed Pneumococcal (Adult) CVX: 33 03/17/2011 completed Assessments Condition Codes Effective Dates Unsteadiness on feet ICD-10: R26.81 ICD-9: 781.2 02/14/2018 Vitamin D deficiency, unspecified ICD-10: E55.9 ICD-9: 268.9 02/14/2018 Pain in left hip ICD-10: M25.552 ICD-9: 719.45 02/14/2018 Encounter for therapeutic drug level monitoring ICD-10: Z51.81 ICD-9: V58.61 02/14/2018 Essential (primary) hypertension ICD-10: I10 ICD-9: 401.1 02/14/2018 Unspecified dementia with behavioral disturbance ICD-10: F03.91 ICD-9: 294.21 02/14/2018 Abnormal weight loss ICD-10: R63.4 ICD-9: 783.21 12/09/2017 Dementia in other diseases classified elsewhere without behavioral disturbance ICD-10: F02.80 ICD-9: 294.10 11/14/2017 Localized edema ICD-10: R60.0 ICD-9: 782.3 08/13/2017 Gastro-esophageal reflux disease without esophagitis ICD-10 : K21.9 ICD-9: 530.81 05/07/2017 Essential (primary) hypertension ICD-10: I10 ICD-9: 401.9 01/08/2017 Urinary tract infection, site not specified ICD-10: N39.0 ICD-9: 599.0 01/08/2017 Mixed hyperlipidemia ICD-10: E78.2 ICD-9: 272.2 01/08/2017 Other residential (current) drug therapy ICD-10: Z79.899 ICD-9: V58.69 01/07/2017 Dysuria ICD-10: R30.0 ICD-9: 788.1 01/07/2017 Mixed hyperlipidemia ICD-10: E78.2 ICD-9: 272.4 [...] 02/17 Left hip pain ICD-9: 719.45 02/17/2015 EDEMA ICD-9: 782.3 02/17/2015 Osteoarthritis ICD-9: 715.90 02/17/2015 SCIATICA ICD-9: 724.3 12/24/2013 Sacroiliitis ICD-9: [...] 08/27/2012 ENTHESOPATHY OF HIP ICD-9: 726.5 2012 Drug therapy continued ICD-9: V58.69 HYPERLIPIDEMIA ICD-9: 272.4 04/30/2012 Iliotibial band syndrome ICD-9: 728.89 Reason For [...] Code Item Item Code Result Date Pt [id number] PT 32.5 seconds 06/20/2018 Pt Mce8072 INR 3.2 06/20/2018 Pt Vlj9790 Low Intensity - 1.5-2.0 06/20/2018 Pt Ltr6346 Mod intensity - 2.0-3.0 06/20/2018 Pt Gpg7795 Hi intensity - 3.0-4.0 06/20/2018 Pt Hxt9062 PT 30.3 seconds 05/19/2018 Pt Rqh0452 INR 2.9 05/19/2018 Pt Iks6307 Low Intensity - 1.5-2.0 05/19/2018 Pt Imi9014 Mod intensity - 2.0-3.0 05/19/2018 Pt Ljx7476 Hi intensity - 3.0-4.0 05/19/2018 Pt Gyp4629 PT 28.9 seconds 04/18/2018 Pt Sju7515 INR 2.8 04/18/2018 Pt Mmg4267 Low Intensity - 1.5-2.0 04/18/2018 Pt Cea4175 Mod intensity - 2.0-3.0 04/18/2018 Pt Eyy6509 Hi intensity - 3.0-4.0 04/18/2018 Pt Xzm5224 PT 23.6 seconds 03/14/2018 Pt Dfq9248 INR 2.1 03/14/2018 Pt Tix8932 Low Intensity - 1.5-2.0 03/14/2018 Pt Kvv0598 Mod intensity - 2.0-3.0 03/14/2018 Pt Pru5078 Hi intensity - 3.0-4.0 03/14/2018 Tsh Ord6 [...] 32.5 pg 02/14/2018 Cbc With Differential Ord2 Graham% 12.8 % 02/14/2018 Cbc With Differential Ord2 [...] 0.88 K/ul 02/14/2018 Cbc With Differential Ord2 Graham ABS# 0.6 K/ul 02/14/2018 Cbc With Differential Ord2 Eos ABS# 0.1 K/ul 02/14/2018 Cbc With Differential Ord2 Baso ABS# 0.0 K/ul 02/14/2018 Valproic Acid Iwo214 VALPROIC 20.0 ug/ml 02/14/2018 Comp Metabolic Hty198 NA 142 mEq/L 02/14/2018 Comp Metabolic Aox368 K 4.0 mEq/L 02/14/2018 Comp Metabolic Wcl434 CL 107 mEq/L 02/14/2018 Comp Metabolic Jno782 CO2 25.0 mEq/L 02/14/2018 Comp Metabolic Uil384 ANION GAP 14 02/14/2018 Comp Metabolic Gpk198 GLUCOSE 71 mg/dL 02/14/2018 Comp Metabolic Eis013 Creat 0.8 mg/dL 02/14/2018 Comp Metabolic Vqj674 eGFR 77 ml/min/1.73m2 02/14/2018 Comp Metabolic Dlu598 BUN 11 mg/dL 02/14/2018 Comp Metabolic Ief063 B/C Ratio 14.5 Ratio 02/14/2018 Comp Metabolic Eco936 CALCIUM 9.3 mg/dL 02/14/2018 Comp Metabolic Ztz660 ALK PHOS 56 U/L 02/14/2018 Comp Metabolic Lgc360 AST(SGOT) 13 U/L 02/14/2018 Comp Metabolic Bga812 ALT(SGPT) 8 U/L 02/14/2018 Comp Metabolic Qxx675 BILI T 0.7 mg/dL 02/14/2018 Comp Metabolic Ehz110 ALBUMIN 3.7 g/dL 02/14/2018 Comp Metabolic Cej442 TPRO 6.5 g/dL 02/14/2018 Comp Metabolic Srk770 GLOB 2.8 g/dL 02/14/2018 Comp Metabolic Uap092 A/G Ratio 1.3 Ratio 02/14/2018 Comp Metabolic Lfb631 Osmo 281 mOsmo 02/14/2018 Pt Ayr1354 PT 26.2 seconds 02/14/2018 Pt Bzk8951 INR 2.4 02/14/2018 Pt Yeg2048 Low Intensity - 1.5-2.0 02/14/2018 Pt Flo1682 Mod intensity - 2.0-3.0 02/14/2018 Pt Rvv2797 Hi intensity - 3.0-4.0 02/14/2018 Vitamin D 25 Oh Nzu2944 VITAMIN D, 25 HYDROXY 14.31 ng/mL Pt Ddu1841 PT 29.2 seconds 01/16/2018 Pt Skz3090 INR 2.7 01/16/2018 Pt Yrh3844 Low Intensity - 1.5-2.0 01/16/2018 Pt Dtk5781 Mod intensity - 2.0-3.0 01/16/2018 Pt Puh8985 Hi intensity - 3.0-4.0 01/16/2018 Pt Ils1056 PT 29.1 seconds 12/09/2017 Pt Arr2972 INR 2.7 12/09/2017 Pt Mmp0558 Low Intensity - 1.5-2.0 12/09/2017 Pt Gcp2581 Mod intensity - 2.0-3.0 12/09/2017 Pt Bma5275 Hi intensity - 3.0-4.0 12/09/2017 Pt Doj6773 PT 25.5 seconds 10/31/2017 Pt Uue4231 INR 2.3 10/31/2017 Pt Iiy2262 Low Intensity - 1.5-2.0 10/31/2017 Pt Mcd1124 Mod intensity - 2.0-3.0 10/31/2017 Pt Udz2591 Hi intensity - 3.0-4.0 10/31/2017 Pt Fww7661 PT 29.5 seconds 10/03/2017 Pt Tnt9751 INR 2.8 10/03/2017 Pt Ujs0966 Low Intensity - 1.5-2.0 10/03/2017 Pt Jgc4947 Mod intensity - 2.0-3.0 10/03/2017 Pt Fmk6224 Hi intensity - 3.0-4.0 10/03/2017 Pt Bgw9946 PT 28.1 seconds 08/30/2017 Pt Srr2331 INR 2.6 08/30/2017 Pt Fmy4228 Low Intensity - 1.5-2.0 08/30/2017 Pt Esw5588 Mod intensity - 2.0-3.0 08/30/2017 Pt Tja2215 Hi intensity - 3.0-4.0 08/30/2017 Pt Knd3146 PT 33.2 seconds 08/15/2017 Pt Vmj5104 INR 3.2 08/15/2017 Pt Ilp5402 Low Intensity - 1.5-2.0 08/15/2017 Pt Jin1906 Mod intensity - 2.0-3.0 08/15/2017 Pt Ipp6834 Hi intensity - 3.0-4.0 08/15/2017 Pt Zsr9161 PT 31.5 seconds 07/10/2017 Pt Uts9170 INR 3.0 07/10/2017 Pt Xhs8170 Low Intensity - 1.5-2.0 07/10/2017 Pt Rnz9785 Mod intensity - 2.0-3.0 07/10/2017 Pt Geu9259 Hi intensity - 3.0-4.0 07/10/2017 Pt Owq3188 PT 33.5 seconds 05/31/2017 Pt Xjn5401 INR 3.2 05/31/2017 Pt Ijh1106 Low Intensity - 1.5-2.0 05/31/2017 Pt Uhu4028 Mod intensity - 2.0-3.0 05/31/2017 Pt Hpb0672 Hi intensity - 3.0-4.0 05/31/2017 Pt Xgo6535 PT 32.2 seconds 05/02/2017 Pt Frr9449 INR 3.1 05/02/2017 Pt Nio2311 Low Intensity - 1.5-2.0 05/02/2017 Pt Ktm9591 Mod intensity - 2.0-3.0 05/02/2017 Pt Sug2174 Hi intensity - 3.0-4.0 05/02/2017 Pt Vbk0203 PT 26.8 seconds 03/28/2017 Pt Xue6606 INR 2.5 03/28/2017 Pt Zgz9352 Low Intensity - 1.5-2.0 03/28/2017 Pt Icy6562 Mod intensity - 2.0-3.0 03/28/2017 Pt Ihu4068 Hi intensity - 3.0-4.0 03/28/2017 Pt Pea7063 PT 26.8 seconds 02/22/2017 Pt Kst3473 INR 2.5 02/22/2017 Pt Pgv6933 Low Intensity - 1.5-2.0 02/22/2017 Pt Mtl0666 Mod intensity - 2.0-3.0 02/22/2017 Pt Avz7868 Hi intensity - 3.0-4.0 02/22/2017 Pt Vkk1056 PT 20.1 seconds 02/07/2017 Pt Bkl2718 INR 1.7 02/07/2017 Pt Wug1705 Low Intensity - 1.5-2.0 02/07/2017 Pt Aha4854 Mod intensity - 2.0-3.0 02/07/2017 Pt Ntb2088 Hi intensity - 3.0-4.0 02/07/2017 Culture Urine [id number] URINE CULTURE SEE NOTES 01/10/2017 Culture Urine [id number] Continued Results 01/10/2017 Valproic Acid (Depakote) S [id number] VALPROIC ACID 20.3 ug/mL 01/08/2017 Urine Culture Ucult Complete >100,000 col/ml aerobic growth sent to ref lab 01/08/2017 Tsh Ord6 hTSH II 2.50 uIU/mL 01/07/2017 Pt Wdv5996 PT 19.5 seconds 01/07/2017 Pt Ozt6135 INR 1.7 01/07/2017 Pt Lgt8716 Low Intensity - 1.5-2.0 01/07/2017 Pt Tqp0359 Mod intensity - 2.0-3.0 01/07/2017 Pt Hbt5356 Hi intensity - 3.0-4.0 01/07/2017 Comp Metabolic Leh755 NA 142 mEq/L 01/07/2017 Comp Metabolic Itw404 K 4.0 mEq/L 01/07/2017 Comp Metabolic Khp705 CL 105 mEq/L 01/07/2017 Comp Metabolic Ecz321 CO2 24.0 mEq/L 01/07/2017 Comp Metabolic Ihp398 ANION GAP 17 01/07/2017 Comp Metabolic Duf101 GLUCOSE 81 mg/dL 01/07/2017 Comp Metabolic Sng317 Creat 0.8 mg/dL 01/07/2017 Comp Metabolic Lcx192 eGFR 72 ml/min/1.73m2 01/07/2017 Comp Metabolic Pkc926 BUN 12 mg/dL 01/07/2017 Comp Metabolic Ebx167 B/C Ratio 15.0 Ratio 01/07/2017 Comp Metabolic Chl927 CALCIUM 9.0 mg/dL 01/07/2017 Comp Metabolic Dfz389 ALK PHOS 59 U/L 01/07/2017 Comp Metabolic Wxa296 AST(SGOT) 18 U/L 01/07/2017 Comp Metabolic Rco081 ALT(SGPT) 11 U/L 01/07/2017 Comp Metabolic Wxf469 BILI T 0.6 mg/dL 01/07/2017 Comp Metabolic Qhz094 ALBUMIN 3.6 g/dL 01/07/2017 Comp Metabolic Ogv198 TPRO 6.7 g/dL 01/07/2017 Comp Metabolic Ecs188 GLOB 3.1 g/dL 01/07/2017 Comp Metabolic Kqu956 A/G Ratio 1.2 Ratio 01/07/2017 Comp Metabolic Sfs657 Osmo 282 mOsmo 01/07/2017 Cbc With Differential Ord2 WBC 4.94 K/ul 01/07/2017 Cbc With Differential Ord2 RBC 4.93 M/ul 01/07/2017 Cbc With Differential Ord2 HGB 15.8 g/dl 01/07/2017 Cbc With Differential Ord2 HCT 48.3 % 01/07/2017 Cbc With Differential Ord2 Neut% 67.3 % 01/07/2017 Cbc With Differential Ord2 Lymph% 19.6 % 01/07/2017 Cbc With Differential Ord2 MCV 98.0 fl 01/07/2017 Cbc With Differential Ord2 Graham% 10.5 % 01/07/2017 Cbc With Differential Ord2 MCH 32.0 pg 01/07/2017 Cbc With Differential Ord2 MCHC 32.7 pg 01/07/2017 Cbc With Differential Ord2 Eos% 2.4 % 01/07/2017 Cbc With Differential Ord2 PLT 210 K/ul 01/07/2017 Cbc With Differential Ord2 Baso% 0.2 % 01/07/2017 Cbc With Differential Ord2 RDW 14.3 % 01/07/2017 Cbc With Differential Ord2 Neut ABS# 3.32 K/ul 01/07/2017 Cbc With Differential Ord2 Lymph ABS# 0.97 K/ul 01/07/2017 Cbc With Differential Ord2 Graham ABS# 0.5 K/ul 01/07/2017 Cbc With Differential Ord2 Eos ABS# 0.1 K/ul 01/07/2017 Cbc With Differential Ord2 Baso ABS# 0.0 K/ul 01/07/2017 Pt [id number] PT 22.5 seconds 12/06/2016 Pt [id number] INR 2.1 12/06/2016 Pt Wyz0576 Low Intensity - 1.5-2.0 12/06/2016 Pt [id number] Mod intensity - 2.0-3.0 12/06/2016 Pt Lbe1550 Hi intensity - 3.0-4.0 12/06/2016 Pt [id number] PT 20.8 seconds 10/29/2016 Pt Evx5546 INR 1.9 10/29/2016 Pt Qcr4802 Low Intensity - 1.5-2.0 10/29/2016 Pt Gze4862 Mod intensity - 2.0-3.0 10/29/2016 Pt Dwa6344 Hi intensity - 3.0-4.0 10/29/2016 Pt Kpq5995 PT 21.9 seconds 09/24/2016 Pt Fck9428 INR 2.0 09/24/2016 Pt Gtj5307 Low Intensity - 1.5-2.0 09/24/2016 Pt Pkr3472 Mod intensity - 2.0-3.0 09/24/2016 Pt Sci0430 Hi intensity - 3.0-4.0 09/24/2016 Pt Cuk1831 PT 21.0 seconds 09/10/2016 Pt Dsx1404 INR 1.9 09/10/2016 Pt Gtd9353 Low Intensity - 1.5-2.0 09/10/2016 Pt Ydg0179 Mod intensity - 2.0-3.0 09/10/2016 Pt Ldm5256 Hi intensity - 3.0-4.0 09/10/2016 Pt Mjx2504 PT 22.8 seconds 08/20/2016 Pt Qne2528 INR 2.1 08/20/2016 Pt Sko1350 Low Intensity - 1.5-2.0 08/20/2016 Pt Elh8322 Mod intensity - 2.0-3.0 08/20/2016 Pt Nui9885 Hi intensity - 3.0-4.0 08/20/2016 Pt Jxm7113 PT 19.2 seconds 08/02/2016 Pt Qpa5050 INR 1.7 08/02/2016 Pt Hhb3102 Low Intensity - 1.5-2.0 08/02/2016 Pt Gtp4868 Mod intensity - 2.0-3.0 08/02/2016 Pt Mwg7166 Hi intensity - 3.0-4.0 08/02/2016 Pt Hdu6204 PT 31.2 seconds 07/12/2016 Pt Mja4099 INR 3.2 07/12/2016 Pt Yon3912 Low Intensity - 1.5-2.0 07/12/2016 Pt Tln5621 Mod intensity - 2.0-3.0 07/12/2016 Pt Bgg6892 Hi intensity - 3.0-4.0 07/12/2016 Pt Yfz4014 PT 20.3 seconds 07/05/2016 Pt Itc1765 INR 1.8 07/05/2016 Pt Tyo7799 Low Intensity - 1.5-2.0 07/05/2016 Pt Pjc9037 Mod intensity - 2.0-3.0 07/05/2016 Pt Kmh4760 Hi intensity - 3.0-4.0 07/05/2016 Pt Vpv8790 PT 22.2 seconds 05/29/2016 Pt Hvs3498 INR 2.1 05/29/2016 Pt Kgq6274 Low Intensity - 1.5-2.0 05/29/2016 Pt Lnv0503 Mod intensity - 2.0-3.0 05/29/2016 Pt Hoy0471 Hi intensity - 3.0-4.0 05/29/2016 Valproic Acid Hyr719 VALPROIC 17.0 ug/ml 04/25/2016 Pt Uug4848 PT 21.9 seconds 04/25/2016 Pt Jgh0879 INR 2.0 04/25/2016 Pt Gxq7683 Low Intensity - 1.5-2.0 04/25/2016 Pt Xtu4368 Mod intensity - 2.0-3.0 04/25/2016 Pt Wvj4926 Hi intensity - 3.0-4.0 04/25/2016 Cbc With [...] 32.5 pg 04/25/2016 Cbc With Differential Ord2 Graham% 12.4 % 04/25/2016 Cbc With Differential Ord2 Eos% 2.2 % 04/25/2016 Cbc With Differential Ord2 MCHC 32.8 pg 04/25/2016 Cbc With Differential Ord2 Baso% 0.2 % 04/25/2016 Cbc With Differential Ord2 PLT 203 K/ul 04/25/2016 Cbc With Differential Ord2 RDW 14.1 % 04/25/2016 Cbc With Differential Ord2 Neut ABS# 2.95 K/ul 04/25/2016 Cbc With Differential Ord2 Lymph ABS# 1.29 K/ul 04/25/2016 Cbc With Differential Ord2 Graham ABS# 0.6 K/ul 04/25/2016 Cbc With Differential Ord2 Eos ABS# 0.1 K/ul 04/25/2016 Cbc With Differential Ord2 Baso ABS# 0.0 K/ul 04/25/2016 Comp Metabolic Net609 NA 138 mEq/L 04/25/2016 Comp Metabolic Oca657 K 4.1 mEq/L 04/25/2016 Comp Metabolic Air927 CL 105 mEq/L 04/25/2016 Comp Metabolic Iyy333 CO2 25.0 mEq/L 04/25/2016 Comp Metabolic Gub344 ANION GAP 12 04/25/2016 Comp Metabolic Ldx694 GLUCOSE 89 mg/dL 04/25/2016 Comp Metabolic Oae793 Creat 0.8 mg/dL 04/25/2016 Comp Metabolic Mui404 eGFR 71 ml/min/1.73m2 04/25/2016 Comp Metabolic Aps015 BUN 14 mg/dL 04/25/2016 Comp Metabolic Fll808 B/C Ratio 17.3 Ratio 04/25/2016 Comp Metabolic Hnx783 CALCIUM 9.0 mg/dL 04/25/2016 Comp Metabolic Ydl831 ALK PHOS 63 U/L 04/25/2016 Comp Metabolic Kzz016 AST(SGOT) 15 U/L 04/25/2016 Comp Metabolic Xfv649 ALT(SGPT) 9 U/L 04/25/2016 Comp Metabolic Dmd942 BILI T 0.4 mg/dL 04/25/2016 Comp Metabolic Tws006 ALBUMIN 3.7 g/dL 04/25/2016 Comp Metabolic Bog658 TPRO 6.4 g/dL 04/25/2016 Comp Metabolic Fev404 GLOB 2.7 g/dL 04/25/2016 Comp Metabolic Iun474 A/G Ratio 1.4 Ratio 04/25/2016 Comp Metabolic Hsp209 Osmo 276 mOsmo 04/25/2016 Tsh Ord6 hTSH II 3.38 uIU/mL 04/25/2016 Pt Zho9722 PT 24.4 seconds 03/27/2016 Pt Xnd4705 INR 2.3 03/27/2016 Pt Yuy7602 Low Intensity - 1.5-2.0 03/27/2016 Pt Okh7262 Mod intensity - 2.0-3.0 03/27/2016 Pt Bjw2670 Hi intensity - 3.0-4.0 03/27/2016 Pt Wdi2813 PT 22.7 seconds 02/24/2016 Pt Qsc1614 INR 2.1 02/24/2016 Pt Wym0599 Low Intensity - 1.5-2.0 02/24/2016 Pt Ahd5939 Mod intensity - 2.0-3.0 02/24/2016 Pt Myy9379 Hi intensity - 3.0-4.0 02/24/2016 Pt Ldh6249 PT 24.2 seconds 02/10/2016 Pt Lmm4331 INR 2.3 02/10/2016 Pt Hki8364 Low Intensity - 1.5-2.0 02/10/2016 Pt Vyy4200 Mod intensity - 2.0-3.0 02/10/2016 Pt Jrv0825 Hi intensity - 3.0-4.0 02/10/2016 Pt Boq7982 PT 15.7 seconds 01/26/2016 Pt Bsy8962 INR 1.3 01/26/2016 Pt Rbi6272 Low Intensity - 1.5-2.0 01/26/2016 Pt Kxe0661 Mod intensity - 2.0-3.0 01/26/2016 Pt Jdw1326 Hi intensity - 3.0-4.0 01/26/2016 Pt Jzu7485 PT 22.0 seconds 01/02/2016 Pt Ljf1335 INR 2.0 01/02/2016 Pt Qze4139 Low Intensity - 1.5-2.0 01/02/2016 Pt Jad8445 Mod intensity - 2.0-3.0 01/02/2016 Pt Mfl5045 Hi intensity - 3.0-4.0 01/02/2016 Pt Qez9140 PT 21.9 seconds 11/30/2015 Pt Yff4336 INR 2.0 11/30/2015 Pt Ziq3898 Low Intensity - 1.5-2.0 11/30/2015 Pt Ffl0939 Mod intensity - 2.0-3.0 11/30/2015 Pt Gee9041 Hi intensity - 3.0-4.0 11/30/2015 Pt Gpd4714 PT 20.0 seconds 10/28/2015 Pt Hph2932 INR 1.8 10/28/2015 Pt Jyl9909 Low Intensity - 1.5-2.0 10/28/2015 Pt Vwp0690 Mod intensity - 2.0-3.0 10/28/2015 Pt Uoa0133 Hi intensity - 3.0-4.0 10/28/2015 Cbc With [...] 32.2 pg 09/19/2015 Cbc With Differential Ord2 Graham% 11.4 % 09/19/2015 Cbc With Differential Ord2 [...] 0.89 K/ul 09/19/2015 Cbc With Differential Ord2 Graham ABS# 0.6 K/ul 09/19/2015 Cbc With Differential Ord2 Eos ABS# 0.1 K/ul 09/19/2015 Cbc With Differential Ord2 Baso ABS# 0.0 K/ul 09/19/2015 Cbc With Differential Ord2 New Analyzer Notice Please note new ref ranges starting 06-29-2015 due to implemntation of new five part differential hematolgy analyzer. 09/19/2015 Pt Ekt7943 PT 28.3 seconds 09/19/2015 Pt Dve8422 INR 2.8 09/19/2015 Pt Xyb4354 Low Intensity - 1.5-2.0 09/19/2015 Pt Alm6845 Mod intensity - 2.0-3.0 09/19/2015 Pt Odk9385 Hi intensity - 3.0-4.0 09/19/2015 Pt Ejj5385 PT 22.5 seconds 08/12/2015 Pt Zol2783 INR 2.1 08/12/2015 Pt Ksk8389 Low Intensity - 1.5-2.0 08/12/2015 Pt Wwu1857 Mod intensity - 2.0-3.0 08/12/2015 Pt Njd4808 Hi intensity - 3.0-4.0 08/12/2015 Pt Hej5302 PT 34.1 seconds 07/29/2015 Pt Svj7407 INR 3.5 07/29/2015 Pt Cvp2724 Low Intensity - 1.5-2.0 07/29/2015 Pt Ity7444 Mod intensity - 2.0-3.0 07/29/2015 Pt Ybt0547 Hi intensity - 3.0-4.0 07/29/2015 Lipid Ord30 CHOL 205 mg/dL 06/29/2015 Lipid Ord30 HDL 59.0 mg/dl 06/29/2015 Lipid Ord30 TRIG 118 mg/dL 06/29/2015 Lipid Ord30 LDL 122 mg/dL 06/29/2015 Lipid Ord30 C/HDL 3.5 Ratio 06/29/2015 Tsh Ord6 hTSH II 2.48 uIU/mL 06/29/2015 Pt Aet1368 PT 14.2 seconds 06/29/2015 Pt Lxe5532 INR 1.1 06/29/2015 Pt Pje4790 Low Intensity - 1.5-2.0 06/29/2015 Pt Ijt2301 Mod intensity - 2.0-3.0 06/29/2015 Pt Itl9663 Hi intensity - 3.0-4.0 06/29/2015 Comp Metabolic Xrt021 NA 139 mEq/L 06/29/2015 Comp Metabolic Wez108 K 3.8 mEq/L 06/29/2015 Comp Metabolic Ibf288 CL 105 mEq/L 06/29/2015 Comp Metabolic Szx978 CO2 21.0 mEq/L 06/29/2015 Comp Metabolic Dzp577 ANION GAP 17 06/29/2015 Comp Metabolic Tpz005 GLUCOSE 78 mg/dL 06/29/2015 Comp Metabolic Unf129 Creat 0.7 mg/dL 06/29/2015 Comp Metabolic Qky819 eGFR 86 ml/min/1.73m2 06/29/2015 Comp Metabolic Pjg514 BUN 7 mg/dL 06/29/2015 Comp Metabolic Lvi764 B/C Ratio 10.1 Ratio 06/29/2015 Comp Metabolic Qto045 CALCIUM 9.3 mg/dL 06/29/2015 Comp Metabolic Hxo345 ALK PHOS 84 U/L 06/29/2015 Comp Metabolic Mdz010 AST(SGOT) 17 U/L 06/29/2015 Comp Metabolic Jdm367 ALT(SGPT) 10 U/L 06/29/2015 Comp Metabolic Vog161 BILI T 1.0 mg/dL 06/29/2015 Comp Metabolic Zgn601 ALBUMIN 4.1 g/dL 06/29/2015 Comp Metabolic Smv738 TPRO 7.0 g/dL 06/29/2015 Comp Metabolic Piw191 GLOB 2.9 g/dL 06/29/2015 Comp Metabolic Yhd495 A/G Ratio 1.4 Ratio 06/29/2015 Comp Metabolic Dxe895 Osmo 274 mOsmo 06/29/2015 CBC With Differential [...] Differential * RDW 13.9 % 06/29/2015 Pt Axw2536 PT 25.9 seconds 05/16/2015 Pt Edm2052 INR 2.5 05/16/2015 Pt Rql7838 Low Intensity - 1.5-2.0 05/16/2015 Pt Xgk3394 Mod intensity - 2.0-3.0 05/16/2015 Pt Fqx5496 Hi intensity - 3.0-4.0 05/16/2015 Pt Kgi6742 PT 28.2 seconds 04/19/2015 Pt Bga4994 INR 2.7 04/19/2015 Pt Qnh7622 Low Intensity - 1.5-2.0 04/19/2015 Pt Mvt9388 Mod intensity - 2.0-3.0 04/19/2015 Pt Yxa0732 Hi intensity - 3.0-4.0 04/19/2015 Pt Hjt0575 PT 29.7 seconds 02/17/2015 Pt Apt2821 INR 2.9 02/17/2015 Pt Bbp1684 Low Intensity - 1.5-2.0 02/17/2015 Pt Tid6907 Mod intensity - 2.0-3.0 02/17/2015 Pt Ppb5533 Hi intensity - 3.0-4.0 02/17/2015 Tsh Ord6 hTSH II 2.36 uIU/mL 02/07/2015 Comp Metabolic Rki955 NA 136 mEq/L 02/07/2015 Comp Metabolic Wsp166 K 4.2 mEq/L 02/07/2015 Comp Metabolic Xoh116 CL 105 mEq/L 02/07/2015 Comp Metabolic Ufb965 CO2 23.0 mEq/L 02/07/2015 Comp Metabolic Ezj426 ANION GAP 12 02/07/2015 Comp Metabolic San440 GLUCOSE 129 mg/dL 02/07/2015 Comp Metabolic Izl431 Creat 0.9 mg/dL 02/07/2015 Comp Metabolic Ebc715 eGFR 67 ml/min/1.73m2 02/07/2015 Comp Metabolic Efa644 BUN 13 mg/dL 02/07/2015 Comp Metabolic Zcs383 B/C Ratio 15.1 Ratio 02/07/2015 Comp Metabolic Ysg289 CALCIUM 9.3 mg/dL 02/07/2015 Comp Metabolic Msn993 ALK PHOS 79 U/L 02/07/2015 Comp Metabolic Bwp241 AST(SGOT) 16 U/L 02/07/2015 Comp Metabolic Yeg671 ALT(SGPT) 10 U/L 02/07/2015 Comp Metabolic Zhe005 BILI T 0.5 mg/dL 02/07/2015 Comp Metabolic Imz613 ALBUMIN 4.0 g/dL 02/07/2015 Comp Metabolic Opf989 TPRO 6.9 g/dL 02/07/2015 Comp Metabolic Jqm639 GLOB 2.9 g/dL 02/07/2015 Comp Metabolic Ehk576 A/G Ratio 1.4 Ratio 02/07/2015 Comp Metabolic Mpk247 Osmo 274 mOsmo 02/07/2015 Pt Sbr3794 PT 26.8 seconds 02/07/2015 Pt Wsw8321 INR 2.6 02/07/2015 Pt Xgn4000 Low Intensity - 1.5-2.0 02/07/2015 Pt Qea0782 Mod intensity - 2.0-3.0 02/07/2015 Pt Lzg0121 Hi intensity - 3.0-4.0 02/07/2015 Cbc With [...] Differential Ord2 RDW 14.5 % 02/07/2015 Pt Yqy4140 PT 27.9 seconds 02/04/2015 Pt Wcf2978 INR 2.7 02/04/2015 Pt Jko0405 Low Intensity - 1.5-2.0 02/04/2015 Pt Imj4011 Mod intensity - 2.0-3.0 02/04/2015 Pt Nxn1037 Hi intensity - 3.0-4.0 02/04/2015 Pt Pmi4487 PT 17.2 seconds 01/25/2015 Pt Upx4822 INR 1.4 01/25/2015 Pt Hsq0653 Low Intensity - 1.5-2.0 01/25/2015 Pt Qqv2211 Mod intensity - 2.0-3.0 01/25/2015 Pt Cxd9503 Hi intensity - 3.0-4.0 01/25/2015 Pt Dyo3885 PT 20.7 seconds 12/23/2014 Pt Djj8582 INR 1.8 12/23/2014 Pt Shv7706 Low Intensity - 1.5-2.0 12/23/2014 Pt Vjr6577 Mod intensity - 2.0-3.0 12/23/2014 Pt Tqv1581 Hi intensity - 3.0-4.0 12/23/2014 PT/MC [id number] PRO TIME 24.9 SEC 08/27/2012 PT/MC [id number] INR MCMC 2.2 08/27/2012 PT/MC 5952321 PRO TIME 31.1 SEC 05/13/2012 PT/MC 5669842 INR MCMC 3.0 05/13/2012 PT/MC 2969760 PRO TIME 18.5 SEC 04/30/2012 PT/MC 9064910 INR MCMC 1.5 04/30/2012 GFR CALC 2995102 GFR AA >60 ML/MIN 04/30/2012 GFR CALC 7395614 GFR NON-AA >60 ML/MIN 04/30/2012 CHEM 14 7425030 AST 16 U/L 04/30/2012 CHEM 14 6057500 ALT 9 IU/L 04/30/2012 CHEM 14 4158878 BUN 7 MG/DL 04/30/2012 CHEM 14 8455131 ALBUMIN 4.0 GM/DL 04/30/2012 CHEM 14 3620827 CHLORIDE 107 MMOL/L 04/30/2012 CHEM 14 0224715 BILI TOT 0.7 MG/DL 04/30/2012 CHEM 14 4406691 ALK PHOS 68 U/L 04/30/2012 CHEM 14 5899961 SODIUM 142 MMOL/L 04/30/2012 CHEM 14 4430429 CREATININE 0.80 MG/DL 04/30/2012 CHEM 14 1992269 CALCIUM 9.5 MG/DL 04/30/2012 CHEM 14 7909597 POTASSIUM 3.7 MMOL/L 04/30/2012 CHEM 14 4860270 PROT TOT 7.1 GM/DL 04/30/2012 CHEM 14 6033209 GLUCOSE 88 MG/DL 04/30/2012 CHEM 14 1466698 BICARB 27 MMOL/L 04/30/2012 CHEM 14 0671516 ANION GAP 8 MEQ/L 04/30/2012 TSH 7857770 TSH 3.019 uIU/ML 04/30/2012 CBC 2416420 WBC 4.0 10e9/L 04/30/2012 CBC 9975189 RBC 4.94 10e12/L 04/30/2012 CBC 9360461 HGB 15.7 g/dL 04/30/2012 CBC 6000004 HCT DET 47.5 % 04/30/2012 CBC 4870341 MCV 96.2 fL 04/30/2012 CBC 5969862 MCH 31.8 pg 04/30/2012 CBC 8317807 MCHC 33.1 g/dL 04/30/2012 CBC 1854610 PLT 226 10e9/L 04/30/2012 CBC 1404372 MPV 10.9 fL 04/30/2012 CBC 9526660 KOBY % 64.8 % 04/30/2012 CBC 9361287 LY % 22.1 % 04/30/2012 CBC 6350130 MON % 9.5 % 04/30/2012 CBC 5694592 EOS % 3.3 % 04/30/2012 CBC 0512066 BASO % 0.3 % 04/30/2012 CBC 7749436 RDW 13.5 % 04/30/2012 CBC 6338515 ABS KOBY 2.59 10e9/L 04/30/2012 CBC 5326050 ABS LYMPH 0.88 10e9/L 04/30/2012 CBC 2360928 ABS MONO 0.38 10e9/L 04/30/2012 CBC 4350509 ABS EOS 0.13 10e9/L 04/30/2012 CBC 5251514 ABS BASO 0.01 10e9/L 04/30/2012 CBC 0028756 RDW-SD 46.5 fL 04/30/2012 LIPID GRP HDL [...] clear 12/01/2013 None Full Exam - General 1995 Eyes conjunctiva /eyelids Overall: cornea clear 12/01/2013 [...] 1995 Eyes conjunctiva /eyelids Overall: eyelids normal 11/27/2013 [...] retractions 08/27/2013 None Full Exam - General 1995 Respiratory respiratory effort/rhythm Overall: normal rate 08/27/2013 None Full Exam - General 1995 Cardiovascular extremities Edema present: non-pitting 08/27/2013 None [...] retractions 05/20/2013 None Full Exam - General 1994 Respiratory respiratory effort/rhythm Overall: normal rate 05/20/2013 [...] alert 05/20/2013 None Full Exam - General 1995 [...] accomodation 03/10/2013 None Full Exam - General 1995 Eyes conjunctiva /eyelids Overall: conjunctiva clear 03/10/2013 [...] affect 12/02/2012 None Full Exam - General 1995 Psychiatric mood and affect Mood: happy 12/02/2012 [...] Procedure Codes Date DESTRUCT PREMALG LESION CPT-4: 66121 11/07/2016 ADMIN INFLUENZA VIRUS VAC CPT-4: G0008 03/25/2015 FLU VACC 4 CHANTELLE 3 YRS PLUS IM Formatting Model/CDA Sections, Assigned to SNOMED CT: [id number] CPT-4: [id number] 03/25/2015 ADMIN INFLUENZA VIRUS VAC Assigned to CPT-4: [id number] 04/23/2014 FLU VAC NO PRSV 4 CHANTELLE 3 YRS+ CPT-4: 65106 04/23/2014 TRIAMCINOLONE ACET INJ NOS CPT-4: J3301 05/20/2013 THER/PROPH/DIAG INJ SC/IM CPT-4: 37130 05/20/2013 PRESCRIP TRANSMIT VIA ERX SY CPT-4: G8553 05/20/2013 URINALYSIS NONAUTO W/O SCOPE CPT-4: 23266 04/30/2013 THER/PROPH/DIAG INJ SC/IM CPT-4: 70132 04/16/2013 ROCEPHIN, PER 250 MG CPT-4: J0696 04/16/2013 PRESCRIP TRANSMIT VIA ERX SY CPT-4: G8553 04/16/2013 ADMIN INFLUENZA VIRUS VAC CPT-4: G0008 03/10/2013 FLULAVAL VACC, 3 YRS & >, IM CPT-4: Q2036 03/10/2013 PRESCRIP TRANSMIT VIA ERX SY CPT-4: G8553 12/02/2012 TRIAMCINOLONE ACET INJ NOS CPT-4: J3301 10/08/2012 INJ TRIGGER POINT 1/2 MUSCL CPT-4: 68911 10/08/2012 ROUTINE VENIPUNCTURE CPT-4: 70192 08/27/2012 DRAIN/INJECT JOINT/BURSA CPT-4: 85200 07/09/2012 TRIAMCINOLONE ACET INJ NOS CPT-4: J3301 07/09/2012 ROUTINE VENIPUNCTURE CPT-4: 61625 05/13/2012 ROUTINE VENIPUNCTURE CPT-4: 58686 04/30/2012 PRESCRIP TRANSMIT VIA ERX SY CPT-4: G8553 04/28/2012 Vital Signs Date Vital 02/14/2018 Blood Pressure 1: 130/78 Code : 8480-6 BMI: 24.6 Code : 03954-0 Heart Rate 1 : 64 bpm Height: 5'1" SpO2: 96% Weight: 130 lbs 12/09/2017 BMI: 24.0 Code: 26455-0 Height: 5'1" Weight: 127 lbs 11/14/2017 Blood Pressure 1: 140/74 Code : 8480-6 Heart Rate 1: 78 bpm SpO2: 94% Weight: 127 lbs 08/13/2017 Blood Pressure 1: 120/76 Code : 8480-6 BMI: 24.9 Code : 73774-7 Heart Rate 1 : 76 bpm Height: 5'1" SpO2: 96% Weight: 132 lbs 05/21/2017 Blood Pressure 1: 132/80 Code : 8480-6 BMI: 26.1 Code : 75890-6 Heart Rate 1 : 61 bpm Height: 5'1" SpO2: 92% Weight: 138 lbs 05/07/2017 Blood Pressure 1: 128/70 Code : 8480-6 BMI: 25.9 Code : 70864-0 Heart Rate 1 : 72 bpm Height: 5'1" SpO2: 96% Weight: 137 lbs 01/08/2017 Blood Pressure 1: 136/82 Code : 8480-6 BMI: 25.5 Code : 83297-2 Heart Rate 1 : 75 bpm Height: 5'1" SpO2: 96% Weight: 135 lbs 01/07/2017 Blood Pressure 1: 142/86 Code : 8480-6 BMI: 25.5 Code : 37077-6 Heart Rate 1 : 75 bpm Height: 5'1" SpO2: 95% Weight: 135 lbs 11/07/2016 Blood Pressure 1: 120/80 Code : 8480-6 BMI: 25.5 Code : 49802-8 Heart Rate 1 : 83 bpm Height: 5'1" SpO2: 97% Weight: 135 lbs 07/26/2016 Blood Pressure 1: 140/80 Code : 8480-6 BMI: 27.0 Code : 50506-8 Heart Rate 1 : 68 bpm Height: 5'1" SpO2: 94% Weight: 143 lbs 04/25/2016 Blood Pressure 1: 128/82 Code : 8480-6 BMI: 28.2 Code : 24902-2 Heart Rate 1 : 71 bpm Height: 5'1" SpO2: 98% Weight: 149 lbs 10/04/2015 Blood Pressure 1: 140/80 Code : 8480-6 BMI: 27.8 Code : 26260-4 Heart Rate 1 : 77 bpm Height: 5'1" SpO2: 96% Weight: 147 lbs 06/29/2015 Blood Pressure 1: 134/70 Code : 8480-6 BMI: 26.8 Code : 15395-2 Heart Rate 1 : 68 bpm Height: 5'1" SpO2: 95% Weight: 142 lbs 02/17/2015 Blood Pressure 1: 128/80 Code : 8480-6 Heart Rate 1: 85 bpm Height: 5'1" SpO2: 96% Weight: 02/07/2015 Blood Pressure 1: 130/68 Code : 8480-6 BMI: 28.7 Code : 48572-2 Heart Rate 1 : 80 bpm Height: 5'1" SpO2: 95% Weight: 152 lbs 03/30/2014 Blood Pressure 1: 142/80 Code : 8480-6 BMI: 27.8 Code : 62173-2 Heart Rate 1 : 83 bpm Height: 5'1" SpO2: 95% Weight: 147 lbs 12/24/2013 Blood Pressure 1: 120/80 Code : 8480-6 BMI: 27.8 Code : 93156-2 Heart Rate 1 : 76 bpm Height: 5'1" Weight: 147 lbs 12/01/2013 Blood Pressure 1: 138/82 Code : 8480-6 BMI: 28.0 Code : 21634-8 Heart Rate 1 : 76 bpm Height: 5'1" SpO2: 91% Weight: 148 lbs 11/27/2013 Blood Pressure 1: 140/90 Code : 8480-6 BMI: 28.0 Code : 24604-4 Heart Rate 1 : 76 bpm Height: 5'1" SpO2: 95% Weight: 148 lbs 08/27/2013 Blood Pressure 1: 132/76 Code : 8480-6 BMI: 26.5 Code : 07429-3 Heart Rate 1 : 72 bpm Height: 5'1" Weight: 140 lbs 05/20/2013 Blood Pressure 1: 122/80 Code : 8480-6 BMI: 26.8 Code : 13448-1 Heart Rate 1 : 80 bpm Height: 5'1" SpO2: 98% Temperature: 37.3 (C) / 99.2 (F) Weight: 142 lbs 04/30/2013 Blood Pressure 1: 140/80 Code : 8480-6 BMI: 27.0 Code : 38762-2 Heart Rate 1 : 73 bpm Height: 5'1" SpO2: 93% Temperature: 37.3 (C) / 99.1 (F) Weight: 143 lbs 04/16/2013 Blood Pressure 1: 100/64 Code : 8480-6 BMI: 27.2 Code : 11269-8 Heart Rate 1 : 80 bpm Height: 5'1" SpO2: 97% Temperature: 37.4 (C) / 99.3 (F) Weight: 144 lbs 03/10/2013 Blood Pressure 1: 132/82 Code : 8480-6 BMI: 27.2 Code : 97467-4 Heart Rate 1 : 80 bpm Height: 5'1" Weight: 144 lbs 12/08/2012 Blood Pressure 1: 144/80 Code : 8480-6 Heart Rate 1: 76 bpm Weight: 12/02/2012 Blood Pressure 1: 118/66 Code : 8480-6 BMI: 27.8 Code : 18485-4 Heart Rate 1 : 88 bpm Height: 5'1" Weight: 147 lbs 10/08/2012 Blood Pressure 1: 116/64 Code : 8480-6 BMI: 27.8 Code : 63935-7 Heart Rate 1 : 80 bpm Height: 5'1" Weight: 147 lbs 08/27/2012 Blood Pressure 1: 122/78 Code : 8480-6 BMI: 28.3 Code : 97115-7 Heart Rate 1 : 84 bpm Height: 5'1" Weight: 150 lbs 07/09/2012 Blood Pressure 1: 136/88 Code : 8480-6 Heart Rate 1: 84 bpm Weight: 150 lbs 05/19/2012 Blood Pressure 1: 124/74 Code : 8480-6 Heart Rate 1: 72 bpm Respiratory Rate : 16 bpm Weight: 152 lbs 04/28/2012 Blood Pressure 1: 130/80 Code : 8480-6 BMI: 29.1 Code : 61776-4 Heart Rate 1 : 56 bpm Height: [...] data Encounters Encounter Performer Location Codes Date ([id number]) [id number] EST. PATIENT, LEVEL IV Diagnosis: Essential (primary) hypertension[ICD10: I10] Diagnosis: Unspecified dementia with behavioral disturbance[ICD10: F03.91] Diagnosis: Pain in left hip[ICD10: M25.552] Diagnosis: Unsteadiness on feet[ICD10: R26.81] Diagnosis: Vitamin D deficiency, unspecified[ICD10: E55.9] Diagnosis: Encounter for therapeutic drug level monitoring[ICD10: Z51.81] [facility] CPT-4: 97621 02/14/2018 ([id number]) Miscellaneous no charge Diagnosis: Abnormal weight loss[ICD10: R63.4] [facility] CPT-4: 79423 12/09/2017 [id number] EST. 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 PATIENT, LEVEL IV Diagnosis: Essential (primary) hypertension[ICD10: I10] Diagnosis: Urinary tract infection, site not specified[ICD10: N39.0] Diagnosis: Mixed hyperlipidemia[ICD10: E78.2] Sarah Gillis MD, [facility] CPT-4: 30690 01/08/2017 [id number] EST. 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 PATIENT, LEVEL IV Diagnosis: Essential (primary) hypertension[ICD10: I10] Diagnosis: Mixed hyperlipidemia[ICD10: E78.2] Diagnosis: Actinic keratosis[ICD10: L57.0] Sarah Gillis MD, [facility] CPT- 4: 83249 11/07/2016 ([id number]) 83325 EST. PATIENT, LEVEL IV Diagnosis: Essential (primary) hypertension[ICD10: I10] Diagnosis: Mixed hyperlipidemia[ICD10: E78.2] Sarah Gillis MD, [facility] CPT-4: 35343 07/26/2016 ([id number]) 26713 EST. PATIENT, LEVEL IV Diagnosis: Essential (primary) hypertension[ICD10: I10] Diagnosis: Other residential (current) drug therapy[ICD10: Z79.899] Diagnosis: Encounter for therapeutic drug level monitoring[ICD10: Z51.81] Sarah Gillis MD, [facility] CPT-4: 14878 04/25/2016 ([id number]) 64930 EST. PATIENT, LEVEL IV Diagnosis: Essential (primary) hypertension[ICD10: I10] Diagnosis: Cervicalgia[ICD10: M54.2] Diagnosis: Cervical disc disorder, unspecified, unspecified cervical region[ ICD10: M50.90] Sarah Gillis MD, [facility] CPT-4: 40172 10/04/2015 ([id number]) 01263 EST. PATIENT, LEVEL IV Diagnosis: Encounter for therapeutic drug level monitoring[ICD10: Z51.81] Diagnosis: Mixed hyperlipidemia[ICD10: E78.2] Diagnosis: Essential (primary) hypertension[ICD10: I10] Diagnosis: Localized edema[ICD10: R60.0] Sarah Gillis MD, [facility] CPT- 4: 17718 06/29/2015 ([id number]) 64357 EST. PATIENT, LEVEL IV Diagnosis: ESSENTIAL HYPERTENSION[ICD9: 401.9] Diagnosis: Osteoarthritis[ICD9: 715.90] Diagnosis: Left hip pain[ICD9: 719.45] Diagnosis: EDEMA[ICD9: 782.3] Diagnosis: ENCNTR LONG-ANTICOAG USE[ICD9: V58.61] Sarah Gillis MD, [facility] CPT-4: 81575 02/17/2015 ([id number]) 15998 EST. PATIENT, LEVEL IV Diagnosis: ESSENTIAL HYPERTENSION[ICD9: 401.9] Diagnosis: Osteoarthritis[ICD9: 715.90] Diagnosis: EDEMA[ICD9: 782.3] Diagnosis: ENCNTR LONG-ANTICOAG USE[ICD9: V58.61] Diagnosis: Left hip pain[ICD9: 719.45] Katy Gillis MD, [facility] CPT-4: 87253 02/07/2015 ([id number]) 81488 EST. PATIENT, LEVEL IV Diagnosis: ESSENTIAL HYPERTENSION[ICD9: 401.9] Diagnosis: Osteoarthritis[ICD9: 715.90] Diagnosis: Hip pain[ICD9: 719.45] Sarah Gillis MD [facility] CPT-4: 77480 03/30/2014 ([id number]) 29161 EST. PATIENT, LEVEL III Diagnosis: ESSENTIAL HYPERTENSION[ICD9: 401.9] Diagnosis: Anticoagulant long-term use[ICD9: V58.61] Diagnosis: SCIATICA[ICD9: 724.3] Sarah Gillis MD [facility] CPT-4: 89659 12/24/2013 ([id number]) 55102 EST. PATIENT, LEVEL III Diagnosis: Sacroiliitis[ICD9: 720.2] Diagnosis: SCIATICA[ICD9: 724.3] Sarah Gillis MD [facility] CPT-4: 04186 12/01/2013 ([id number]) 04172 EST. PATIENT, LEVEL III Diagnosis: EDEMA[ICD9: 782.3] Diagnosis: LONG-TERM USE ANTICOAGUL[ICD9: V58.61] Sarah Gillis MD [facility] CPT-4: 39916 11/27/2013 ([id number]) 73105 EST. PATIENT, LEVEL III Diagnosis: ESSENTIAL HYPERTENSION[SNOMED: 33397256] Sarah Gillis MD [facility] CPT-4: 25808 08/27/2013 ([id number]) 67740 EST. PATIENT, LEVEL III Diagnosis: Acute bronchitis[ICD9: 466.0] Diagnosis: COUGH[ICD9: 786.2] Sarah Gillis MD [facility] CPT-4: 05681 05/20/2013 ([id number]) 73934 EST. PATIENT, LEVEL III Diagnosis: ACUTE BRONCHITIS[ICD9: 466.0] Diagnosis: Memory loss[ICD9: 780.93] Sarah Gillis MD [facility] CPT-4: 31123 04/30/2013 ([id number]) 70883 EST. PATIENT, LEVEL III Diagnosis: ACUTE BRONCHITIS[ICD9: 466.0] Diagnosis: Cough[ICD9: 786.2] Sarah Gillis MD [facility] CPT-4: 80895 04/16/2013 ([id number]) 98160 EST. PATIENT, LEVEL III Diagnosis: ESSENTIAL HYPERTENSION[SNOMED: 16802393] Sarah Gillis MD, [facility] CPT-4: 18880 03/10/2013 ([id number]) Miscellaneous no charge Diagnosis: BLISTER FOOT/TOE[ICD9: 917.2] CARLY Edwards MD CPT- 4: 21688 12/08/2012 ([id number]) 25260 EST. PATIENT, LEVEL III Diagnosis: BLISTER FOOT/TOE[ICD9: 917.2] Diagnosis: CELLULITIS OF FOOT[ICD9: 682.7] Diagnosis: Osteoarthritis[ICD9: 715.90] Sarah Gillis MD [facility] CPT- 4: 03211 12/02/2012 ([id number]) 22019 EST. PATIENT, LEVEL III Diagnosis: ESSENTIAL HYPERTENSION[SNOMED: 10704127] Sarah Gillis MD, [facility] [facility] CPT[facility] 45995 10/08/2012 ([id number]) [id number] EST. PATIENT, LEVEL III Diagnosis: Bruising[ICD9: 924.9] Diagnosis: ENCNTR LONG-ANTICOAG USE[ICD9: V58.61] Sarah Gillis MD, [facility] CPT-4: 80135 08/27/2012 ([id number]) 09265 EST. PATIENT, LEVEL III Diagnosis: ESSENTIAL HYPERTENSION[SNOMED: 49108194] Diagnosis: Sacroiliitis[ICD9: 720.2] Sarah Gillis MD [facility] CPT-4: 26986 07/09/2012 ([id number]) [id number] EST. 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 11/14/2017 Appointment: Mary Gonzalez WPtel: [phone] [facility] (30 min) Complex 11/14/2017 Patient Education: [...] effectiveness. 08/13/2017 Appointment: Mary Gonzalez WPtel: [phone] [facility] (30 min) Complex 08/13/2017 Patient Education: [...] effectiveness. 05/21/2017 Appointment: Mary Gonzalez WPtel: [phone] [facility] [place] (30 min) Complex 05/21/2017 Patient [...] effectiveness. 05/07/2017 Appointment: Mary Gonzalez WPtel: [phone] [facility] (30 min) Complex 05/07/2017 Patient Education: Patient Medication Summary Completed 05/07/2017 Appointment: Sarah Gillis WPtel: [phone] [facility] (15 min) Moderate 02/05/2017 Visit Plan: [...] weeks 01/08/2017 Appointment: Sarah Gillis WPtel: [phone] [facility] [place] (15 min) Moderate 01/08/2017 Patient Education: Patient [...] for effectiveness. 01/07/2017 Appointment: Mary Gonzalez WPtel: [phone] [facility] (10 min) Simple 01/07/2017 Patient Education: [...] to medications. 11/07/2016 Appointment: Sarah Gillis WPtel: [phone] [facility] (15 min) Moderate 11/07/2016 Patient Education: Patient Medication Summary Completed 11/07/2016 Appointment: Sarah Gillis WPtel: [phone] [facility] (15 min) Moderate 10/24/2016 Visit Plan: [...] medications. 07/26/2016 Appointment: Sarah Gillis WPtel: [phone] [facility] (15 min) Moderate 07/26/2016 Patient Education: [...] supportive care. 04/25/2016 Appointment: Sarah Gillis WPtel: [facility] (15 min) Moderate 04/25/2016 Patient Education: Patient Medication Summary Completed 04/25/2016 Appointment: Sarah Gillis WPtel: [phone] [facility] (30 min) Complex 04/03/2016 Visit Plan: [...] Completed 10/04/2015 Appointment: Sarah Gillis WPtel: [phone] [facility] (30 min) Complex 09/28/2015 Patient Education: [...] hs 06/29/2015 [facility]: [phone] ([facility] Complex 06/29/2015 Patient Education: Patient [...] Hypertension Completed 02/07/2015 Appointment: Sarah Gillis [facility]el[facility] Follow up 06/28/2014 Appointment: Injection 04/23/2014 Patient [...] DAILY. 03/30/2014 Appointment: [phone] Follow [facility] 03/30/2014 Patient Education: Patient Medication [...] home. 12/24/2013 App[facility]ment: [phone] Follow [facility] 12/24/2013 Patient Education: Patient Medication [...] 3.5. 11/27/2013 Appointment: [place] [place] [phone] Other 11/27/2013 Patient Education: Patient Medication Summary Completed 11/27/2013 Visit Plan: Hypertension - well controlled - continue with current medications, continue with no added salt diet. Pt has been encouraged to exercise daily. The pt has been advised to call the office if there are any acute concerns about change in blood pressure readings at home. 08/27/2013 Appointment: [phone] Follow [facility] 08/27/2013 Patient Education: Patient Medication [...] inflammation 05/20/2013 Appointment: Sarah Gillis WPtel: [phone] [facility] Sick 05/20/2013 Patient Education: Patient Medication [...] at home. 03/10/2013 Appointment: Sarah Gillis WPtel: [facility] Follow up 03/10/2013 Patient Education: Patient Medication Summary Completed 03/10/2013 Patient Education: Hypertension Completed 03/10/2013 Appointment: Sarah Gillis WPtel: [phone] [facility] [place] Follow up 12/17/2012 Visit Plan: Wound care to lesion -neosporin, call if worsening symptoms - finish antibotics 12/08/2012 Appointment: Sarah Gillis WPtel: [address] [place], [place] [address] Other 12/08/2012 Patient Education: Patient Medication Summary [...] pain symptoms. 12/02/2012 Appointment: Sarah Gillis WPtel: [address] [place], [place] [phone] Follow up 12/02/2012 Patient Education: Patient Medication [...] injection today. 10/08/2012 Appointment: Sarah Gillis WPtel: [address] [place], [place] [address] Follow up 10/08/2012 Patient Education: Patient Medication Summary Completed 10/08/2012 Patient Education: Hypertension Completed 10/08/2012 Visit Plan: Abnormal bruising-residential coumadin therapy- plan to check PT/INR today in the office and continue to monitor symptoms- instructed patient to call if bleeding/bruising continues or if she becomes weak , dizzy, light headed, etc. Patient and verbalized understanding of plan. 08/27/2012 Appointment: Katy Shoer WPtel: [address] [place], [place] [phone] Other 08/27/2012 Patient Education: Patient Medication Summary Completed 08/27/2012 Appointment: Sarah Gillis WPtel: [address] [place] [address] Follow up 07/14/2012 Visit Plan: Hypertension - [...] they worsen. 07/09/2012 Appointment: Sarah Gillis WPtel: [facility] Other 07/09/2012 Patient Education: Patient Medication [...] times daily. 05/19/2012 Appointment: Sarah Gillis WPtel: [address] [place], [place] [phone] Follow up 05/19/2012 Patient Education: Hypertension Completed 05/19/2012 Patient Education: Patient Medication Summary Completed 05/19/2012 Appointment: Sarah Gillis WPtel: [address] [place], [place] [phone] Lab Draw 05/13/2012 Patient Education: Patient Medication [...] pain symptoms. 04/28/2012 Appointment: Sarah Gillis WPtel: [phone] [facility] New Patient 04/28/2012 Patient Education: Patient Medication Summary Completed 04/28/2012 Patient Education: High Blood Pressure: Essential Hypertension Completed 2011 App[facility]ment: Sarah Gill[facility]el[phone] [facility]/ New Patient 10/15/2011 Instructions Comment . HIP [...] symptoms of inflammation the coumadin 4mg is Saturday/Saturday/Saturday/Ras the coumadin 5mg is Saturday//Saturday. Hypertension - [...] with any questions or concerns. . 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
--- OUTSIDE RECORDS SUMMARY | 2018-08-26 10:52 | XMS REPORT | CCD ---
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 Name Role Phone PP Unavailable CCM Unavailable Summary Purpose Interface Exchange Insurance Providers Payer name Policy type / Coverage type Covered green party ID Effective Begin Date Effective End Date WPS Medicare Part B Medicare Part B [id number] 2013 Unknown [facility] Medicare Part B [id number] 2013 Unknown Family history Brother Diagnosis Age [...] 2 1 in 2010, 1 lives in [place] 11/07/2016 Marital status Unknown 04/28/2012 Employment Unknown Retired 04/28/[address]: 8170877 Quit over 10 years ago 04/28/[address]: 096703832 Never drinks alcohol 04/28/2012 Allergies, Adverse Reactions, [...] 788.1 ICD-10: R30.0 01/07/2017 Active 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 ICD-9: V58.69 ICD-10: Z79.899 [...] Start Date Stop Date Status Fill Instructions Depakote 125 mg tablet,delayed release RxNorm: 7798263 Tablet(s) Tablet(s) 1 Tablet(s) PO QPM 05/16/2018 12/11/2018 Active PLEASE SEND REFILL REQUESTS ELECTRONICALLY pravastatin 40 mg tablet RxNorm: 299840 TAKE ONE TABLET BY MOUTH EVERY DAY 03/17/2018 02/09/2019 Active Generic For:*PRAVACHOL 40 MG TABLET 03/17/2018 8:03:02 AM amlodipine 5 mg tablet RxNorm: 835390 TAKE ONE (1) TABLET BY MOUTH DAILY 02/18/2018 02/12/2019 Active Generic For:NORVASC 5 MG TABLET 02/18/2018 10:12:27 AM Vitamin D3 5,000 unit tablet RxNorm: 419313 1 Tablet(s) PO daily 02/14/2018 08/12/2018 Active may give OTC bottle Vitamin D3 5,000 unit tablet RxNorm: 973474 1 Tablet(s) PO daily 02/14/2018 02/13/2018 Inactive Vitamin D2 50,000 unit capsule RxNorm: 1891698 1 Capsule(s) PO QW 02/14/2018 02/13/2018 Inactive Vitamin D2 50,000 unit capsule RxNorm: 9522798 1 Capsule(s) PO QW x8 weeks then stop 02/14/2018 04/14/2018 Inactive amlodipine 5 mg tablet RxNorm: 873625 1 Tablet(s) PO daily 02/17/2018 Inactive Generic For:NORVASC 5 MG TABLET REFILL REQUEST 08/27/2016 10:47:17 AM Coumadin 5 mg tablet RxNorm: 309579 1 Tablet(s) PO daily except 1/2 Tab on Sat, Sat12/16/2017 06/15/2018 Inactive hydrochlorothiazide 12.5 mg tablet RxNorm: 462468 1 Tablet(s) PO daily 12/16/2017 07/13/2018 Active hydrochlorothiazide 12.5 mg tablet RxNorm: 249737 Tablet(s) Tablet(s) 1 Tablet(s) PO daily 11/18/2017 12/15/2017 Inactive PLEASE SEND REFILL REQUESTS ELECTRONICALLY Depakote 125 mg tablet,delayed release RxNorm: 7452157 Tablet(s) Tablet(s) 1 Tablet(s) PO QPM 10/17/2017 05/14/2018 Inactive PLEASE SEND REFILL REQUESTS ELECTRONICALLY hydrochlorothiazide 12.5 mg tablet RxNorm: 241403 Tablet(s) Tablet(s) 1 Tablet(s) PO daily 10/17/2017 11/17/2017 Inactive PLEASE SEND REFILL REQUESTS ELECTRONICALLY Coumadin 5 mg tablet RxNorm: 869480 1 Tablet(s) daily TAKE 1 TABLET BY MOUTH DAILY 08/15/2017 12/15/2017 Inactive Coumadin 5 mg tablet RxNorm: 529159 Tablet(s) TAKE 1 TABLET BY MOUTH DAILY 06/24/2017 08/14/2017 Inactive pravastatin 40 mg tablet RxNorm: 878417 Tablet(s) TAKE ONE TABLET BY MOUTH EVERY DAY 05/27/2017 03/16/2018 Inactive Voltaren 1 % topical gel RxNorm: 808454 4 Gram(s) TOP QID 05/2106/19/2017 Inactive Depakote 125 mg tablet,delayed release RxNorm: 2060546 Tablet(s) 1 Tablet(s) PO QPM 04/22/2017 10/16/2017 Inactive hydrochlorothiazide 12.5 mg tablet RxNorm: 588654 Tablet(s) 1 Tablet(s) PO daily 03/22/2017 10/16/2017 Inactive amlodipine 5 mg tablet RxNorm: 810513 1 Tablet(s) PO daily 02/12/2018 Inactive Generic For:NORVASC 5 MG TABLET REFILL REQUEST 08/27/2016 10:47:17 AM cephalexin 500 mg tablet RxNorm: 935763 1 Tablet(s) PO TID 01/17/2017 Inactive cephalexin 500 mg tablet RxNorm: 020824 1 Tablet(s) PO TID 01/07/2017 Inactive Coumadin 5 mg tablet RxNorm: 262943 TAKE 1 TABLET BY MOUTH DAILY EXCEPT 1/2 TABLET ON SATURDAY AND Saturday12/26/2016 06/23/2017 Inactive Generic For:COUMADIN 5MG TAB 12/26/2016 9:17:49 AM N O T I C E Last quantity doesn't match original quantity Depakote 125 mg tablet,delayed release RxNorm: 1840326 Tablet(s) 1 Tablet(s) PO QPM 10/25/2016 04/21/2017 Inactive Coumadin 5 mg tablet RxNorm: 386533 TAKE 1 TABLET BY MOUTH DAILY EXCEPT 1/2 TABLET ON SATURDAY AND Saturday09/27/2016 12/25/2016 Inactive Generic For:COUMADIN 5MG TAB N O T I C E Last quantity doesn't match original quantity REFILL REQUEST 09/27/2016 9:43:11 AM Coumadin 4 mg tablet RxNorm: 384680 Tablet(s) as doctor directed TAKE 1 TABLET 4 days per week 09/27/2016 04/24/2017 Inactive Generic For:COUMADIN 4MG TAB amlodipine 5 mg tablet RxNorm: 321744 TAKE 1 TABLET BY MOUTH DAILY 08/27/2016 09/26/2016 Inactive Generic For:NORVASC 5 MG TABLET REFILL REQUEST 08/27/2016 10:47: 17 AM hydrochlorothiazide 12.5 mg tablet RxNorm: 085991 Tablet(s) 1 Tablet(s) PO daily 08/27/2016 03/21/2017 Inactive pravastatin 40 mg tablet RxNorm: 163105 Tablet(s) TAKE ONE TABLET BY MOUTH EVERY DAY 06/29/2016 05/24/2017 Inactive Coumadin 5 mg tablet RxNorm: 031977 1 Tablet(s) PO daily except 1/2 tab on , Sat06/14/2016 09/26/2016 Inactive Coumadin 5 mg tablet RxNorm: 870661 1 Tablet(s) PO daily except 1/2 tab on , Sat06/12/2016 12/08/2016 Inactive Depakote 125 mg tablet,delayed release RxNorm: 0018981 1 Tablet(s) PO QPM 04/30/2016 10/24/2016 Inactive amlodipine 5 mg tablet RxNorm: 359514 Tablet(s) TAKE ONE TABLET BY MOUTH EVERY DAY 03/06/2016 08/26/2016 Inactive Generic For:NORVASC 5 MG TABLET 2015 9:02 :57 AM N O T I C E Last quantity doesn't match original quantity hydrochlorothiazide 12.5 mg tablet RxNorm: 936541 1 Tablet(s) PO daily 02/01/2016 08/26/2016 Inactive Coumadin 5 mg tablet RxNorm: 981258 1 Tablet(s) PO daily except 1/2 tab on , Sat12/26/2015 06/11/2016 Inactive Coumadin 5 mg tablet RxNorm: 755801 TAKE 1 TABLET BY MOUTH 3 DAYS PER WEEK (, SAT) 11/10/2015 12/25/2015 Inactive Generic For:COUMADIN 5MG TAB PT SAYS TAKING DIFFERENT NOW...WE NEED NEW RX PLEASE Coumadin 5 mg tablet RxNorm: 894282 Tablet(s) TAKE 1 TABLET BY MOUTH 5 DAYS PER WEEK Sun Sat11/04/201511/08 Inactive Generic For:COUMADIN 5MG TAB 10/04/2015 10:19:46 AM Depakote 125 mg tablet,delayed release RxNorm: 0598311 1 Tablet(s) PO QPM 11/04/2015 04/29/2016 Inactive Coumadin 5 mg tablet RxNorm: 486089 TAKE 1 TABLET BY MOUTH 3 DAYS PER WEEK (SATLAURA, SAT) 10/04/2015 11/03/2015 Inactive Generic For:COUMADIN 5MG TAB 10/04/2015 10:19:46 AM amlodipine 5 mg tablet RxNorm: 386322 Tablet(s) TAKE ONE TABLET BY MOUTH EVERY DAY 09/12/2015 03/05/2016 Inactive Generic For:NORVASC 5 MG TABLET 2015 9:02 :57 AM N O T I C E Last quantity doesn't match original quantity Coumadin 5 mg tablet RxNorm: 125167 1 Tablet(s) daily 201510/03/2015 Inactive Voltaren 1 % topical gel RxNorm: 854923 4 Gram(s) TOP QID 06/2904/24/2016 Inactive Depakote 125 mg tablet,delayed release RxNorm: 2310409 1 Tablet(s) PO QPM 06/29/2015 10/26/2015 Inactive hydrochlorothiazide 12.5 mg tablet RxNorm: 720295 1 Tablet(s) PO daily 06/29/2015 01/24/2016 Inactive Depakote 125 mg tablet,delayed release RxNorm: 4002584 1 Tablet(s) PO QPM 06/29/2015 06/28/2015 Inactive pravastatin 40 mg tablet RxNorm: 645272 Tablet(s) TAKE ONE TABLET BY MOUTH EVERY DAY 06/29/2015 06/28/2016 Inactive Generic For:*PRAVACHOL 40 MG TABLET Coumadin 5 mg tablet RxNorm: 982806 1 Tablet(s) PO [facility] days per [facility] 05/09/2015 06/30/2015 Inactive take 4mg on sun sat amlodipine 5 mg tablet RxNorm: 585106 TAKE ONE TABLET BY MOUTH EVERY DAY 2015 09/06/2015 Inactive Generic For:NORVASC 5 MG TABLET 2015 9:02:57 AM N O T I C E Last quantity doesn't match original quantity Coumadin 5 mg tablet RxNorm: 868350 1 Tablet(s) PO LAURA CLARKE, [facility] 3 days per week 11/15/2014 05/08/2015 Inactive take 4mg on sun sat Coumadin 4 mg tablet RxNorm: 109073 Tablet(s) as doctor directed TAKE 1 TABLET 4 days per week 11/15/2014 06/12/2015 Inactive Generic For:COUMADIN 4MG TAB Coumadin 5 mg tablet RxNorm: 917309 1 Tablet(s) PO LAURA CLARKE, 10/27/2014 11/14/2014 Inactive TAKE 4MG ON SUN Sat [SAVINGS FOR NON-COVERED DRUGS -- BIN: [id number], PCN: [id number], Group: XXXXX, ID# [id number], Questions: . THIS IS NOT INSURANCE.] Coumadin 5 mg tablet RxNorm: 163843 1 Tablet(s) PO LAURA CLARKE, [facility] 10/27/2014 10/26/2014 Inactive amlodipine 5 mg tablet RxNorm: 063680 1 Tablet(s) PO daily 03/10/2015 Inactive Generic For:NORVASC 5 MG TABLET Generic For:NORVASC 5 MG TABLET 2012 8:54:53 AM pravastatin 40 mg tablet RxNorm: 481568 TAKE ONE TABLET BY MOUTH EVERY DAY 08/12/2014 06/28/2015 Inactive Generic For:*PRAVACHOL 40 MG TABLET Coumadin 4 mg tablet RxNorm: 389659 TAKE 1 TABLET BY MOUTH DAILY 08/12/2014 11/14/2014 Inactive Generic For:COUMADIN 4MG TAB pravastatin 40 mg tablet RxNorm: 750497 1 Tablet(s) PO daily TAKE ONE TABLET BY MOUTH EVERY DAY 08/11/2014 08/11/2014 Inactive Generic For:*PRAVACHOL 40 MG TABLET Generic For:*PRAVACHOL 40 MG TABLET Coumadin 4 mg tablet RxNorm: 968752 Tablet(s) PO TAKE ONE TABLET BY MOUTH EVERY DAY 08/11/2014 08/11/2014 Inactive Generic For:COUMADIN 4MG TAB Generic For: COUMADIN 4MG TAB [SAVINGS FOR NON-COVERED DRUGS -- BIN:122399, PCN: ASPROD1, Group: XXXXX, ID# [id number], Questions: . THIS IS NOT INSURANCE.] amlodipine 5 mg tablet RxNorm: 375676 1 Tablet(s) daily 1 Tablet(s) PO daily TAKE ONE (1) TABLET BY MOUTH DAILY 05/12/2014 09/13/2014 Inactive Generic For:NORVASC 5 MG TABLET Generic For:NORVASC 5 MG TABLET 05/18/2013 8:54:53 AM amlodipine 5 mg tablet RxNorm: 752909 1 Tablet(s) PO daily TAKE ONE (1) TABLET BY MOUTH DAILY 01/14/2014 05/11/2014 Inactive Generic For:NORVASC 5 MG TABLET Generic For:NORVASC 5 MG TABLET 05/18/2013 8:54:53 AM Coumadin 4 mg tablet RxNorm: 027282 TAKE 1 TABLET BY MOUTH DAILY 01/14/2014 08/11/2014 Inactive Generic For:COUMADIN 4MG TAB amlodipine 5 mg tablet RxNorm: 739638 1 Tablet(s) PO daily TAKE ONE (1) TABLET BY MOUTH DAILY 01/14/2014 01/08/2015 Inactive Generic For:NORVASC 5 MG TABLET Generic For:NORVASC 5 MG TABLET 05/18/2013 8:54:53 AM amlodipine 5 mg tablet RxNorm: 531701 1 Tablet(s) PO daily TAKE ONE (1) TABLET BY MOUTH DAILY 09/18/2013 01/13/2014 Inactive Generic For:NORVASC 5 MG TABLET Generic For:NORVASC 5 MG TABLET 05/18/2013 8:54:53 AM Coumadin 4 mg tablet RxNorm: 248143 4mg daily Tablet(s) PO daily 07/30/2013 01/13/2014 Inactive Generic For:COUMADIN 4MG TAB pravastatin 40 mg tablet RxNorm: 212735 Tablet(s) PO TAKE ONE TABLET BY MOUTH EVERY DAY 07/20/2013 08/10/2014 Inactive Generic For:*PRAVACHOL 40 MG TABLET Generic For:*PRAVACHOL 40 MG TABLET Kenalog 40 mg/mL suspension for injection RxNorm: 7873993 Milliliter(s) Inj 05/20/2013 05/20/2013 Inactive azithromycin 500 mg tablet RxNorm: 6929160 1 Tablet(s) PO daily 05/20/2013 05/24/2013 Inactive amlodipine 5 mg tablet RxNorm: 509078 Tablet(s) PO TAKE ONE (1) TABLET BY MOUTH DAILY 05/18/2013 05/17/2013 Inactive Generic For:NORVASC 5 MG TABLET Generic For: NORVASC 5 MG TABLET 05/18/2013 8:54:53 AM amlodipine 5 mg tablet RxNorm: 791115 1 Tablet(s) PO daily TAKE ONE (1) TABLET BY MOUTH DAILY 05/18/2013 09/17/2013 Inactive Generic For:NORVASC 5 MG TABLET Generic For:NORVASC 5 MG TABLET 05/18/2013 8:54:53 AM Coumadin 4 mg tablet RxNorm: 231202 2mg wed 4 mg other Tablet(s) PO daily 04/28/2013 07/29/2013 Inactive Generic For:COUMADIN 4MG TAB Coumadin 4 mg tablet RxNorm: 827213 4mg daily Tablet(s) PO daily 04/16/2013 04/27/2013 Inactive Generic For:COUMADIN 4MG TAB Rocephin 500 mg solution for injection RxNorm: 076479 Inj 04/1604/16/2013 Inactive amoxicillin 500 mg tablet RxNorm: 230971 1 Tablet(s) PO TID 04/22/2013 Inactive Coumadin 4 mg tablet RxNorm: 034841 Tablet(s) PO TAKE ONE TABLET BY MOUTH EVERY DAY 04/16/2013 08/10/2014 Inactive Generic For:COUMADIN 4MG TAB Generic For: COUMADIN 4MG TAB Coumadin 4 mg tablet RxNorm: 771912 4mg daily Tablet(s) PO daily 03/18/2013 04/15/2013 Inactive Generic For:COUMADIN 4MG TAB Coumadin 4 mg tablet RxNorm: 565684 2mg on tuesdays, 4mg others Tablet(s) PO daily 03/10/2013 03/17/2013 Inactive Generic For:COUMADIN 4MG TAB Influenza Virus Vaccine 0.5 mL RxNorm: IM 03/10/2013 03/10/2013 Inactive amlodipine 5 mg tablet RxNorm: 159148 Tablet(s) PO TAKE ONE (1) TABLET BY MOUTH DAILY 01/22/2013 05/17/2013 Inactive Generic For:NORVASC 5 MG TABLET 01/22/2013 9: 42:13 AM cephalexin 500 mg tablet RxNorm: 731525 1 Tablet(s) PO TID 12/08/2012 Inactive amlodipine 5 mg tablet RxNorm: 709452 Tablet(s) PO TAKE ONE (1) TABLET BY MOUTH DAILY 09/22/2012 01/21/2013 Inactive Generic For:NORVASC 5 MG TABLET 09/20/2012 9: 10AM 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 Coumadin 4 mg tablet RxNorm: 642158 1 Tablet(s) PO daily TAKE ONE TABLET BY MOUTH EVERY DAY 09/15/2012 03/09/2013 Inactive Generic For:COUMADIN 4MG TAB Coumadin 4 mg tablet RxNorm: 821277 Tablet(s) PO TAKE ONE TABLET BY MOUTH EVERY DAY 09/12/2012 09/14/2012 Inactive Generic For:COUMADIN 4MG TAB Coumadin 4 mg tablet RxNorm: 488090 1 Tablet(s) PO daily 201209/11/2012 Inactive new dose Coumadin 4 mg tablet RxNorm: 656873 1 Tablet(s) PO daily 201207/15/2012 Inactive Coumadin 3 mg tablet RxNorm: 164458 1 1/2 Tablet(s) PO daily 07/16/2012 Inactive pravastatin 40 mg tablet RxNorm: 642581 1 Tablet(s) PO daily 07/19/2013 Inactive Coumadin 3 mg tablet RxNorm: 436560 1 1/2 Tablet(s) PO daily 07/15/2012 Inactive amlodipine 5 mg tablet RxNorm: 588532 1 Tablet(s) PO daily 05/201209/21/2012 Inactive Voltaren 1 % Topical Gel RxNorm: 689851 4 Gram(s) TOP QID 04/2805/27/2012 Inactive Chikis 180 mg tablet RxNorm: 794411 1 Tablet(s) PO daily No Start Date Active hydrochlorothiazide 12.5 mg tablet RxNorm: 645448 1 Tablet(s) PO daily No Start Date 06/28/2015 Inactive Ziac 2.5 mg-6.25 mg tablet RxNorm: 895367 1 Tablet(s) PO daily No Start Date 09/15/2013 Inactive Coumadin 3 mg tablet RxNorm: 197687 Tablet(s) PO No Start Date 04/30/2012 Inactive pravastatin 40 mg tablet RxNorm: 233915 1 Tablet(s) PO daily No Start Date 06/25/2012 Inactive Medication Administered Medication Codes Instructions Start Date Status Kenalog 40 mg/mL suspension for injection RxNorm: 6607744 Milliliter 05/20/2013 No longer Active Rocephin 500 mg solution for injection RxNorm: 722724 04/16/2013 No longer Active Influenza Virus Vaccine [...] Code Item Item Code Result Date Pt Ebn9703 PT 32.5 seconds 06/20/2018 Pt Gxq1748 INR 3.2 06/20/2018 Pt Xww9080 Low Intensity - 1.5-2.0 06/20/2018 Pt Tzb8915 Mod intensity - 2.0-3.0 06/20/2018 Pt Jro5018 Hi intensity - 3.0-4.0 06/20/2018 Pt Rnd9900 PT 30.3 seconds 05/19/2018 Pt Fsh4734 INR 2.9 05/19/2018 Pt Otr3846 Low Intensity - 1.5-2.0 05/19/2018 Pt Rti0296 Mod intensity - 2.0-3.0 05/19/2018 Pt Qhs2346 Hi intensity - 3.0-4.0 05/19/2018 Pt Kxv0857 PT 28.9 seconds 04/18/2018 Pt Xqv4645 INR 2.8 04/18/2018 Pt Lid9530 Low Intensity - 1.5-2.0 04/18/2018 Pt Erw1188 Mod intensity - 2.0-3.0 04/18/2018 Pt Cho0943 Hi intensity - 3.0-4.0 04/18/2018 Pt Kon2265 PT 23.6 seconds 03/14/2018 Pt Ywa1204 INR 2.1 03/14/2018 Pt Kmm8631 Low Intensity - 1.5-2.0 03/14/2018 Pt Xbo3448 Mod intensity - 2.0-3.0 03/14/2018 Pt Aca3192 Hi intensity - 3.0-4.0 03/14/2018 Tsh Ord6 [...] 18.8 % 02/14/2018 Cbc With Differential Ord2 [place]% 12.8 % 02/14/2018 Cbc With Differential Ord2 [...] 0.88 K/ul 02/14/2018 Cbc With Differential Ord2 [place] ABS# 0.6 K/ul 02/14/2018 Cbc With Differential Ord2 Eos ABS# 0.1 K/ul 02/14/2018 Cbc With Differential Ord2 Baso ABS# 0.0 K/ul 02/14/2018 Comp Metabolic Usy719 NA 142 mEq/L 02/14/2018 Comp Metabolic Jen513 K 4.0 mEq/L 02/14/2018 Comp Metabolic Oxa163 CL 107 mEq/L 02/14/2018 Comp Metabolic Ntu134 CO2 25.0 mEq/L 02/14/2018 Comp Metabolic Ykr839 ANION GAP 14 02/14/2018 Comp Metabolic Swk430 GLUCOSE 71 mg/dL 02/14/2018 Comp Metabolic Vgs625 Creat 0.8 mg/dL 02/14/2018 Comp Metabolic Ils781 eGFR 77 ml/min/1.73m2 02/14/2018 Comp Metabolic Gfj673 BUN 11 mg/dL 02/14/2018 Comp Metabolic Xmt672 B/C Ratio 14.5 Ratio 02/14/2018 Comp Metabolic Nrt660 CALCIUM 9.3 mg/dL 02/14/2018 Comp Metabolic Irs894 ALK PHOS 56 U/L 02/14/2018 Comp Metabolic Mxb335 AST(SGOT) 13 U/L 02/14/2018 Comp Metabolic Med442 ALT(SGPT) 8 U/L 02/14/2018 Comp Metabolic Xfa657 BILI T 0.7 mg/dL 02/14/2018 Comp Metabolic Rlc542 ALBUMIN 3.7 g/dL 02/14/2018 Comp Metabolic Ggp067 TPRO 6.5 g/dL 02/14/2018 Comp Metabolic Gki396 GLOB 2.8 g/dL 02/14/2018 Comp Metabolic Brr793 A/G Ratio 1.3 Ratio 02/14/2018 Comp Metabolic Vog838 Osmo 281 mOsmo 02/14/2018 Pt Add4824 PT 26.2 seconds 02/14/2018 Pt Jmr0098 INR 2.4 02/14/2018 Pt Jmh8587 Low Intensity - 1.5-2.0 02/14/2018 Pt Bmy0296 Mod intensity - 2.0-3.0 02/14/2018 Pt Zfn9167 Hi intensity - 3.0-4.0 02/14/2018 Vitamin D 25 Oh Hcd1533 VITAMIN D, 25 HYDROXY 14.31 ng/mL Valproic Acid Bcc193 VALPROIC 20.0 ug/ml 02/14/2018 Pt Pqc7626 PT 29.2 seconds 01/16/2018 Pt Exv0786 INR 2.7 01/16/2018 Pt Ndf9912 Low Intensity - 1.5-2.0 01/16/2018 Pt Mvf7441 Mod intensity - 2.0-3.0 01/16/2018 Pt Nzy2699 Hi intensity - 3.0-4.0 01/16/2018 Pt Pqf9903 PT 29.1 seconds 12/09/2017 Pt Hnc5589 INR 2.7 12/09/2017 Pt Wen3144 Low Intensity - 1.5-2.0 12/09/2017 Pt Uzq2763 Mod intensity - 2.0-3.0 12/09/2017 Pt Ksh0434 Hi intensity - 3.0-4.0 12/09/2017 Pt Cvi5951 PT 25.5 seconds 10/31/2017 Pt Aib9318 INR 2.3 10/31/2017 Pt Xsj6058 Low Intensity - 1.5-2.0 10/31/2017 Pt Mup1574 Mod intensity - 2.0-3.0 10/31/2017 Pt Idq0649 Hi intensity - 3.0-4.0 10/31/2017 Pt Qoy0832 PT 29.5 seconds 10/03/2017 Pt Maw9169 INR 2.8 10/03/2017 Pt Ztw2376 Low Intensity - 1.5-2.0 10/03/2017 Pt Bcx2429 Mod intensity - 2.0-3.0 10/03/2017 Pt Jgl5022 Hi intensity - 3.0-4.0 10/03/2017 Pt Zcp0829 PT 28.1 seconds 08/30/2017 Pt Rwj1133 INR 2.6 08/30/2017 Pt Gjh3406 Low Intensity - 1.5-2.0 08/30/2017 Pt Fch4316 Mod intensity - 2.0-3.0 08/30/2017 Pt Vjc5805 Hi intensity - 3.0-4.0 08/30/2017 Pt Kad1275 PT 33.2 seconds 08/15/2017 Pt Efl9475 INR 3.2 08/15/2017 Pt Ayb6092 Low Intensity - 1.5-2.0 08/15/2017 Pt Zux0524 Mod intensity - 2.0-3.0 08/15/2017 Pt Pak5456 Hi intensity - 3.0-4.0 08/15/2017 Pt Jaw1118 PT 31.5 seconds 07/10/2017 Pt Lbc4341 INR 3.0 07/10/2017 Pt Ffg4973 Low Intensity - 1.5-2.0 07/10/2017 Pt Lvx2399 Mod intensity - 2.0-3.0 07/10/2017 Pt Hbw5761 Hi intensity - 3.0-4.0 07/10/2017 Pt Gfc6527 PT 33.5 seconds 05/31/2017 Pt Qbe4485 INR 3.2 05/31/2017 Pt Mru5342 Low Intensity - 1.5-2.0 05/31/2017 Pt Icm4260 Mod intensity - 2.0-3.0 05/31/2017 Pt Tax7017 Hi intensity - 3.0-4.0 05/31/2017 Pt Fcu6749 PT 32.2 seconds 05/02/2017 Pt Pae0454 INR 3.1 05/02/2017 Pt Hfd4579 Low Intensity - 1.5-2.0 05/02/2017 Pt Upq7822 Mod intensity - 2.0-3.0 05/02/2017 Pt Hxo4333 Hi intensity - 3.0-4.0 05/02/2017 Pt Vih9902 PT 26.8 seconds 03/28/2017 Pt Jas4187 INR 2.5 03/28/2017 Pt Sif0631 Low Intensity - 1.5-2.0 03/28/2017 Pt Qow1802 Mod intensity - 2.0-3.0 03/28/2017 Pt Cnw5346 Hi intensity - 3.0-4.0 03/28/2017 Pt Vfe1906 PT 26.8 seconds 02/22/2017 Pt Ubg4506 INR 2.5 02/22/2017 Pt Nmc4971 Low Intensity - 1.5-2.0 02/22/2017 Pt Oph3451 Mod intensity - 2.0-3.0 02/22/2017 Pt Vwd6786 Hi intensity - 3.0-4.0 02/22/2017 Pt Eok5153 PT 20.1 seconds 02/07/2017 Pt Khf0314 INR 1.7 02/07/2017 Pt Ffx2984 Low Intensity - 1.5-2.0 02/07/2017 Pt Mfj1840 Mod intensity - 2.0-3.0 02/07/2017 Pt Yws6492 Hi intensity - 3.0-4.0 02/07/2017 Culture Urine [id number] URINE CULTURE SEE NOTES 01/10/2017 Culture Urine [id number] Continued Results 01/10/2017 Urine Culture Ucult Complete >100,000 col/ml aerobic growth sent to ref lab 01/08/2017 Valproic Acid (Depakote) S 149982 VALPROIC ACID 20.3 ug/mL 01/08/2017 Tsh Ord6 [...] 19.6 % 01/07/2017 Cbc With Differential Ord2 [place]% 10.5 % 01/07/2017 Cbc With Differential Ord2 [...] 0.97 K/ul 01/07/2017 Cbc With Differential Ord2 [place] ABS# 0.5 K/ul 01/07/2017 Cbc With Differential Ord2 Eos ABS# 0.1 K/ul 01/07/2017 Cbc With Differential Ord2 Baso ABS# 0.0 K/ul 01/07/2017 Comp Metabolic Nve643 NA 142 mEq/L 01/07/2017 Comp Metabolic Cpi669 K 4.0 mEq/L 01/07/2017 Comp Metabolic Byb302 CL 105 mEq/L 01/07/2017 Comp Metabolic Ruu303 CO2 24.0 mEq/L 01/07/2017 Comp Metabolic Nlg336 ANION GAP 17 01/07/2017 Comp Metabolic Vsv847 GLUCOSE 81 mg/dL 01/07/2017 Comp Metabolic Len354 Creat 0.8 mg/dL 01/07/2017 Comp Metabolic Vhn813 eGFR 72 ml/min/1.73m2 01/07/2017 Comp Metabolic Nvx344 BUN 12 mg/dL 01/07/2017 Comp Metabolic Zks338 B/C Ratio 15.0 Ratio 01/07/2017 Comp Metabolic Jln910 CALCIUM 9.0 mg/dL 01/07/2017 Comp Metabolic Hzt466 ALK PHOS 59 U/L 01/07/2017 Comp Metabolic Ety153 AST(SGOT) 18 U/L 01/07/2017 Comp Metabolic Lez705 ALT(SGPT) 11 U/L 01/07/2017 Comp Metabolic Zsa733 BILI T 0.6 mg/dL 01/07/2017 Comp Metabolic Kmz306 ALBUMIN 3.6 g/dL 01/07/2017 Comp Metabolic Wii606 TPRO 6.7 g/dL 01/07/2017 Comp Metabolic Wdf713 GLOB 3.1 g/dL 01/07/2017 Comp Metabolic Iyx491 A/G Ratio 1.2 Ratio 01/07/2017 Comp Metabolic Mnw858 Osmo 282 mOsmo 01/07/2017 Pt Okd0796 PT 19.5 seconds 01/07/2017 Pt Isr3997 INR 1.7 01/07/2017 Pt Bpo2852 Low Intensity - 1.5-2.0 01/07/2017 Pt Zhs2111 Mod intensity - 2.0-3.0 01/07/2017 Pt Nhv0175 Hi intensity - 3.0-4.0 01/07/2017 Pt Nvu0878 PT 22.5 seconds 12/06/2016 Pt Hnw4746 INR 2.1 12/06/2016 Pt Bta4153 Low Intensity - 1.5-2.0 12/06/2016 Pt Ecl2190 Mod intensity - 2.0-3.0 12/06/2016 Pt Fkr3518 Hi intensity - 3.0-4.0 12/06/2016 Pt Eru2093 PT 20.8 seconds 10/29/2016 Pt Jpt4833 INR 1.9 10/29/2016 Pt Ike9324 Low Intensity - 1.5-2.0 10/29/2016 Pt Apw4822 Mod intensity - 2.0-3.0 10/29/2016 Pt Esn9408 Hi intensity - 3.0-4.0 10/29/2016 Pt Jyj8711 PT 21.9 seconds 09/24/2016 Pt Kpl0858 INR 2.0 09/24/2016 Pt Mnu7829 Low Intensity - 1.5-2.0 09/24/2016 Pt Qep0996 Mod intensity - 2.0-3.0 09/24/2016 Pt Vat6516 Hi intensity - 3.0-4.0 09/24/2016 Pt Ryj3892 PT 21.0 seconds 09/10/2016 Pt Yuf3583 INR 1.9 09/10/2016 Pt Yvi7501 Low Intensity - 1.5-2.0 09/10/2016 Pt Efm2246 Mod intensity - 2.0-3.0 09/10/2016 Pt Kqe2822 Hi intensity - 3.0-4.0 09/10/2016 Pt Xwi5326 PT 22.8 seconds 08/20/2016 Pt Cjj6432 INR 2.1 08/20/2016 Pt Cju1562 Low Intensity - 1.5-2.0 08/20/2016 Pt Ohq9756 Mod intensity - 2.0-3.0 08/20/2016 Pt Uvd6443 Hi intensity - 3.0-4.0 08/20/2016 Pt Ofo5259 PT 19.2 seconds 08/02/2016 Pt Lxr9069 INR 1.7 08/02/2016 Pt Vfb1120 Low Intensity - 1.5-2.0 08/02/2016 Pt Jqn4842 Mod intensity - 2.0-3.0 08/02/2016 Pt Xah3980 Hi intensity - 3.0-4.0 08/02/2016 Pt Ver1802 PT 31.2 seconds 07/12/2016 Pt Chb7390 INR 3.2 07/12/2016 Pt Sei9121 Low Intensity - 1.5-2.0 07/12/2016 Pt Uui7504 Mod intensity - 2.0-3.0 07/12/2016 Pt Tyu8481 Hi intensity - 3.0-4.0 07/12/2016 Pt Idz1574 PT 20.3 seconds 07/05/2016 Pt Ixa2426 INR 1.8 07/05/2016 Pt Lli0481 Low Intensity - 1.5-2.0 07/05/2016 Pt Keq8515 Mod intensity - 2.0-3.0 07/05/2016 Pt Rgv7723 Hi intensity - 3.0-4.0 07/05/2016 Pt Ovv2679 PT 22.2 seconds 05/29/2016 Pt Gya4390 INR 2.1 05/29/2016 Pt Gzq2237 Low Intensity - 1.5-2.0 05/29/2016 Pt Iiv3993 Mod intensity - 2.0-3.0 05/29/2016 Pt Bbo1856 Hi intensity - 3.0-4.0 05/29/2016 Tsh Ord6 hTSH II 3.38 uIU/mL 04/25/2016 Comp Metabolic Sdw006 NA 138 mEq/L 04/25/2016 Comp Metabolic Npj816 K 4.1 mEq/L 04/25/2016 Comp Metabolic Juy296 CL 105 mEq/L 04/25/2016 Comp Metabolic Xhy381 CO2 25.0 mEq/L 04/25/2016 Comp Metabolic Eiv042 ANION GAP 12 04/25/2016 Comp Metabolic Izz192 GLUCOSE 89 mg/dL 04/25/2016 Comp Metabolic Rng455 Creat 0.8 mg/dL 04/25/2016 Comp Metabolic Jju842 eGFR 71 ml/min/1.73m2 04/25/2016 Comp Metabolic Aww218 BUN 14 mg/dL 04/25/2016 Comp Metabolic Uyg984 B/C Ratio 17.3 Ratio 04/25/2016 Comp Metabolic Fjr481 CALCIUM 9.0 mg/dL 04/25/2016 Comp Metabolic Sbn393 ALK PHOS 63 U/L 04/25/2016 Comp Metabolic Daa300 AST(SGOT) 15 U/L 04/25/2016 Comp Metabolic Fms424 ALT(SGPT) 9 U/L 04/25/2016 Comp Metabolic Dnv548 BILI T 0.4 mg/dL 04/25/2016 Comp Metabolic Tlp488 ALBUMIN 3.7 g/dL 04/25/2016 Comp Metabolic Jtu052 TPRO 6.4 g/dL 04/25/2016 Comp Metabolic Yao096 GLOB 2.7 g/dL 04/25/2016 Comp Metabolic Cxx616 A/G Ratio 1.4 Ratio 04/25/2016 Comp Metabolic Fkb884 Osmo 276 mOsmo 04/25/2016 Valproic Acid Qqc775 VALPROIC 17.0 ug/ml 04/25/2016 Cbc With Differential [...] 32.5 pg 04/25/2016 Cbc With Differential Ord2 [place]% 12.4 % 04/25/2016 Cbc With Differential Ord2 [...] 1.29 K/ul 04/25/2016 Cbc With Differential Ord2 [place] ABS# 0.6 K/ul 04/25/2016 Cbc With Differential Ord2 Eos ABS# 0.1 K/ul 04/25/2016 Cbc With Differential Ord2 Baso ABS# 0.0 K/ul 04/25/2016 Pt Awx3925 PT 21.9 seconds 04/25/2016 Pt Yqu1918 INR 2.0 04/25/2016 Pt Jgl3148 Low Intensity - 1.5-2.0 04/25/2016 Pt Dxl1986 Mod intensity - 2.0-3.0 04/25/2016 Pt Hff5493 Hi intensity - 3.0-4.0 04/25/2016 Pt Opi6375 PT 24.4 seconds 03/27/2016 Pt Hvo2442 INR 2.3 03/27/2016 Pt Emx2663 Low Intensity - 1.5-2.0 03/27/2016 Pt Gbj8013 Mod intensity - 2.0-3.0 03/27/2016 Pt Wbv0778 Hi intensity - 3.0-4.0 03/27/2016 Pt Kmg8788 PT 22.7 seconds 02/24/2016 Pt Lpw5249 INR 2.1 02/24/2016 Pt Fza2238 Low Intensity - 1.5-2.0 02/24/2016 Pt Kmh0786 Mod intensity - 2.0-3.0 02/24/2016 Pt Ifj7114 Hi intensity - 3.0-4.0 02/24/2016 Pt Fix8529 PT 24.2 seconds 02/10/2016 Pt Qzl4746 INR 2.3 02/10/2016 Pt Twz9639 Low Intensity - 1.5-2.0 02/10/2016 Pt Orx6418 Mod intensity - 2.0-3.0 02/10/2016 Pt Uwk9995 Hi intensity - 3.0-4.0 02/10/2016 Pt Mfo4293 PT 15.7 seconds 01/26/2016 Pt Pag0130 INR 1.3 01/26/2016 Pt Vpi9733 Low Intensity - 1.5-2.0 01/26/2016 Pt Jio7409 Mod intensity - 2.0-3.0 01/26/2016 Pt Lgx1532 Hi intensity - 3.0-4.0 01/26/2016 Pt Hou6071 PT 22.0 seconds 01/02/2016 Pt Kwf0688 INR 2.0 01/02/2016 Pt Qru9261 Low Intensity - 1.5-2.0 01/02/2016 Pt Uga9397 Mod intensity - 2.0-3.0 01/02/2016 Pt Uxz0728 Hi intensity - 3.0-4.0 01/02/2016 Pt Ybj5624 PT 21.9 seconds 11/30/2015 Pt Sql4466 INR 2.0 11/30/2015 Pt Fvj8486 Low Intensity - 1.5-2.0 11/30/2015 Pt Gqo3791 Mod intensity - 2.0-3.0 11/30/2015 Pt Ppb1946 Hi intensity - 3.0-4.0 11/30/2015 Pt Srx0060 PT 20.0 seconds 10/28/2015 Pt Xfg9932 INR 1.8 10/28/2015 Pt Jtm3007 Low Intensity - 1.5-2.0 10/28/2015 Pt Clf5624 Mod intensity - 2.0-3.0 10/28/2015 Pt Cgu1463 Hi intensity - 3.0-4.0 10/28/2015 Cbc With [...] 32.2 pg 09/19/2015 Cbc With Differential Ord2 [place]% 11.4 % 09/19/2015 Cbc With Differential Ord2 [...] 0.89 K/ul 09/19/2015 Cbc With Differential Ord2 [place] ABS# 0.6 K/ul 09/19/2015 Cbc With Differential Ord2 Eos ABS# 0.1 K/ul 09/19/2015 Cbc With Differential Ord2 Baso ABS# 0.0 K/ul 09/19/2015 Cbc With Differential Ord2 New Analyzer Notice Please note new ref ranges starting 06-29-2015 due to implemntation of new five part differential hematolgy analyzer. 09/19/2015 Pt Yvn8451 PT 28.3 seconds 09/19/2015 Pt Ndx5267 INR 2.8 09/19/2015 Pt Lzz5135 Low Intensity - 1.5-2.0 09/19/2015 Pt Unj0469 Mod intensity - 2.0-3.0 09/19/2015 Pt Pjo9357 Hi intensity - 3.0-4.0 09/19/2015 Pt Wvs1753 PT 22.5 seconds 08/12/2015 Pt Asd8656 INR 2.1 08/12/2015 Pt Kpn9210 Low Intensity - 1.5-2.0 08/12/2015 Pt Utd7968 Mod intensity - 2.0-3.0 08/12/2015 Pt Xzl9472 Hi intensity - 3.0-4.0 08/12/2015 Pt Bib7340 PT 34.1 seconds 07/29/2015 Pt Lag2012 INR 3.5 07/29/2015 Pt Clp5236 Low Intensity - 1.5-2.0 07/29/2015 Pt Kym0569 Mod intensity - 2.0-3.0 07/29/2015 Pt Aul2655 Hi intensity - 3.0-4.0 07/29/2015 Tsh Ord6 hTSH II 2.48 uIU/mL 06/29/2015 Pt Fcx4406 PT 14.2 seconds 06/29/2015 Pt Lkp0871 INR 1.1 06/29/2015 Pt Zwy8126 Low Intensity - 1.5-2.0 06/29/2015 Pt Csh2838 Mod intensity - 2.0-3.0 06/29/2015 Pt Bls8045 Hi intensity - 3.0-4.0 06/29/2015 Comp Metabolic Zkc407 NA 139 mEq/L 06/29/2015 Comp Metabolic Jkq963 K 3.8 mEq/L 06/29/2015 Comp Metabolic Ngz932 CL 105 mEq/L 06/29/2015 Comp Metabolic Oof881 CO2 21.0 mEq/L 06/29/2015 Comp Metabolic Nff447 ANION GAP 17 06/29/2015 Comp Metabolic Nhu053 GLUCOSE 78 mg/dL 06/29/2015 Comp Metabolic Fje353 Creat 0.7 mg/dL 06/29/2015 Comp Metabolic Mjr054 eGFR 86 ml/min/1.73m2 06/29/2015 Comp Metabolic Kse739 BUN 7 mg/dL 06/29/2015 Comp Metabolic Xdf206 B/C Ratio 10.1 Ratio 06/29/2015 Comp Metabolic Zvb657 CALCIUM 9.3 mg/dL 06/29/2015 Comp Metabolic Xhe221 ALK PHOS 84 U/L 06/29/2015 Comp Metabolic Twd987 AST(SGOT) 17 U/L 06/29/2015 Comp Metabolic Ifh017 ALT(SGPT) 10 U/L 06/29/2015 Comp Metabolic Qyp460 BILI T 1.0 mg/dL 06/29/2015 Comp Metabolic Zkb134 ALBUMIN 4.1 g/dL 06/29/2015 Comp Metabolic Dne448 TPRO 7.0 g/dL 06/29/2015 Comp Metabolic Qis052 GLOB 2.9 g/dL 06/29/2015 Comp Metabolic Unp620 A/G Ratio 1.4 Ratio 06/29/2015 Comp Metabolic Nlm802 Osmo 274 mOsmo 06/29/2015 CBC With Differential [...] Lipid Ord30 C/HDL 3.5 Ratio 06/29/2015 Pt Ndt1865 PT 25.9 seconds 05/16/2015 Pt Rtp1979 INR 2.5 05/16/2015 Pt Eca2558 Low Intensity - 1.5-2.0 05/16/2015 Pt Zjn5326 Mod intensity - 2.0-3.0 05/16/2015 Pt Tmo6318 Hi intensity - 3.0-4.0 05/16/2015 Pt Uje0721 PT 28.2 seconds 04/19/2015 Pt Gic2802 INR 2.7 04/19/2015 Pt Tbl1066 Low Intensity - 1.5-2.0 04/19/2015 Pt Qbr7329 Mod intensity - 2.0-3.0 04/19/2015 Pt Gcw2437 Hi intensity - 3.0-4.0 04/19/2015 Pt Pbe5503 PT 29.7 seconds 02/17/2015 Pt Ltv3136 INR 2.9 02/17/2015 Pt Sup9218 Low Intensity - 1.5-2.0 02/17/2015 Pt Clq1243 Mod intensity - 2.0-3.0 02/17/2015 Pt Egi5467 Hi intensity - 3.0-4.0 02/17/2015 Cbc With [...] Differential Ord2 RDW 14.5 % 02/07/2015 Pt Rlr5769 PT 26.8 seconds 02/07/2015 Pt Ahe3086 INR 2.6 02/07/2015 Pt Veh1951 Low Intensity - 1.5-2.0 02/07/2015 Pt Uvc3532 Mod intensity - 2.0-3.0 02/07/2015 Pt Ddm5197 Hi intensity - 3.0-4.0 02/07/2015 Tsh Ord6 hTSH II 2.36 uIU/mL 02/07/2015 Comp Metabolic Whw943 NA 136 mEq/L 02/07/2015 Comp Metabolic Qto635 K 4.2 mEq/L 02/07/2015 Comp Metabolic Gcq502 CL 105 mEq/L 02/07/2015 Comp Metabolic Bfl657 CO2 23.0 mEq/L 02/07/2015 Comp Metabolic Kon203 ANION GAP 12 02/07/2015 Comp Metabolic Naf577 GLUCOSE 129 mg/dL 02/07/2015 Comp Metabolic Lqz493 Creat 0.9 mg/dL 02/07/2015 Comp Metabolic Jpt471 eGFR 67 ml/min/1.73m2 02/07/2015 Comp Metabolic Dir249 BUN 13 mg/dL 02/07/2015 Comp Metabolic Msr711 B/C Ratio 15.1 Ratio 02/07/2015 Comp Metabolic Kun872 CALCIUM 9.3 mg/dL 02/07/2015 Comp Metabolic Qfp887 ALK PHOS 79 U/L 02/07/2015 Comp Metabolic Wdq123 AST(SGOT) 16 U/L 02/07/2015 Comp Metabolic Lgf583 ALT(SGPT) 10 U/L 02/07/2015 Comp Metabolic Obf363 BILI T 0.5 mg/dL 02/07/2015 Comp Metabolic Rpv913 ALBUMIN 4.0 g/dL 02/07/2015 Comp Metabolic Tfp304 TPRO 6.9 g/dL 02/07/2015 Comp Metabolic Gyh289 GLOB 2.9 g/dL 02/07/2015 Comp Metabolic Xik933 A/G Ratio 1.4 Ratio 02/07/2015 Comp Metabolic Kdr805 Osmo 274 mOsmo 02/07/2015 Pt Qim3459 PT 27.9 seconds 02/04/2015 Pt Rcc1556 INR 2.7 02/04/2015 Pt Bnz4933 Low Intensity - 1.5-2.0 02/04/2015 Pt Qlg2198 Mod intensity - 2.0-3.0 02/04/2015 Pt Jga1315 Hi intensity - 3.0-4.0 02/04/2015 Pt Xqw1821 PT 17.2 seconds 01/25/2015 Pt Fyp8736 INR 1.4 01/25/2015 Pt Rzz3030 Low Intensity - 1.5-2.0 01/25/2015 Pt Qlm4382 Mod intensity - 2.0-3.0 01/25/2015 Pt Daw3815 Hi intensity - 3.0-4.0 01/25/2015 Pt Mzh7527 PT 20.7 seconds 12/23/2014 Pt Zej8425 INR 1.8 12/23/2014 Pt Hjr0060 Low Intensity - 1.5-2.0 12/23/2014 Pt Plm8996 Mod intensity - 2.0-3.0 12/23/2014 Pt Qwt3263 Hi intensity - 3.0-4.0 12/23/2014 PT/MC 3979180 PRO TIME 24.9 SEC 08/27/2012 PT/MC 8208781 INR MCMC 2.2 08/27/2012 PT/MC 0509676 PRO TIME 31.1 SEC 05/13/2012 PT/MC 1939148 INR MCMC 3.0 05/13/2012 GFR CALC 8366972 GFR AA >60 ML/MIN 04/30/2012 GFR CALC 8095095 GFR NON-AA >60 ML/MIN 04/30/2012 CHEM 14 20271220 AST 16 U/L 04/30/2012 CHEM 14 20271220 ALT 9 IU/L 04/30/2012 CHEM 14 6217378 BUN 7 MG/DL 04/30/2012 CHEM 14 1944146 ALBUMIN 4.0 GM/DL 04/30/2012 CHEM 14 2738766 CHLORIDE 107 MMOL/L 04/30/2012 CHEM 14 4904791 BILI TOT 0.7 MG/DL 04/30/2012 CHEM 14 4895678 ALK PHOS 68 U/L 04/30/2012 CHEM 14 5053815 SODIUM 142 MMOL/L 04/30/2012 CHEM 14 9924196 CREATININE 0.80 MG/DL 04/30/2012 CHEM 14 6159865 CALCIUM 9.5 MG/DL 04/30/2012 CHEM 14 8180976 POTASSIUM 3.7 MMOL/L 04/30/2012 CHEM 14 5767324 PROT TOT 7.1 GM/DL 04/30/2012 CHEM 14 2377984 GLUCOSE 88 MG/DL 04/30/2012 CHEM 14 3365586 BICARB 27 MMOL/L 04/30/2012 CHEM 14 7799116 ANION GAP 8 MEQ/L 04/30/2012 PT/MC 0630520 PRO TIME 18.5 SEC 04/30/2012 PT/MC 5980230 INR MCMC 1.5 04/30/2012 TSH 7251768 TSH 3.019 uIU/ML 04/30/2012 CBC 7994105 WBC 4.0 10e9/L 04/30/2012 CBC 3830087 RBC 4.94 10e12/L 04/30/2012 CBC 5827648 HGB 15.7 g/dL 04/30/2012 CBC 6892039 HCT DET 47.5 % 04/30/2012 CBC 2741682 MCV 96.2 fL 04/30/2012 CBC 0603767 MCH 31.8 pg 04/30/2012 CBC 9224179 MCHC 33.1 g/dL 04/30/2012 CBC 2698795 PLT 226 10e9/L 04/30/2012 CBC 0831152 MPV 10.9 fL 04/30/2012 CBC 8961376 KOBY % 64.8 % 04/30/2012 CBC 2396482 LY % 22.1 % 04/30/2012 CBC 8077433 MON % 9.5 % 04/30/2012 CBC 3159120 EOS % 3.3 % 04/30/2012 CBC 0537412 BASO % 0.3 % 04/30/2012 CBC 4470490 RDW 13.5 % 04/30/2012 CBC 0791354 ABS KOBY 2.59 10e9/L 04/30/2012 CBC 2935163 ABS LYMPH 0.88 10e9/L 04/30/2012 CBC 0432929 ABS MONO 0.38 10e9/L 04/30/2012 CBC 4912500 ABS EOS 0.13 10e9/L 04/30/2012 CBC 6735982 ABS BASO 0.01 10e9/L 04/30/2012 CBC 5705815 RDW-SD 46.5 fL 04/30/2012 LIPID GRP HDL [...] status Overall: alert 04/25/2016 SLUMS - score /30 Full Exam - General 1994 Psychiatric orientation/consciousness [...] tenderness 03/30/2014 None Full Exam - General 1995 Constitutional general appearance Overall: well developed 12/24/2013 None Full Exam - General 1995 Constitutional [...] nourished 03/10/2013 None Full Exam - General 1995 Constitutional general appearance Overall: well developed 03/10/2013 [...] normal 03/10/2013 None Full Exam - General 1995 Eyes conjunctiva /eyelids Overall: cornea clear 03/10/2013 [...] Orientation: Where are we - state/country/town/hospital/floor (5): 10/08/2012 None Full Exam - General [...] developed 08/27/2012 None Full Exam - General 1995 Constitutional general appearance Overall: in no acute distress 08/27/2012 None Full Exam - General 1995 Constitutional general appearance Overall: well nourished 08/27/2012 None Full Exam - General 1995 Psychiatric orientation/consciousness Overall: oriented to person, place and time 08/27/2012 None Full Exam - General 1995 Integument inspection of skin Location: right arm 08/27/2012 bruise noted to right wrist Full Exam - General 1995 Cardiovascular auscultation of heart Overall: regular rate 08/27/2012 None Full Exam - General 1995 Cardiovascular auscultation of heart Overall: normal heart sounds 08/27/2012 None Full Exam - General 1995 Cardiovascular auscultation of heart Murmur: previously known murmur unchanged 08/27/2012 None Full Exam - General 1995 [...] 1994 Ears/Nose/Throat oral cavity/pharynx/larynx Overall: no masses 07/09/2012 [...] Procedure Codes Date DESTRUCT PREMALG LESION CPT-4: 08598 11/07/2016 ADMIN INFLUENZA VIRUS VAC CPT-4: G0008 03/25/2015 FLU VACC 4 CHANTELLE 3 YRS PLUS IM Formatting Model/CDA Sections, Assigned to SNOMED CT: [id number] CPT-4: 94978Brsoyzb 03/25/2015 ADMIN INFLUENZA VIRUS VAC Assigned to CPT-4: E5980Qeijwda 04/23/2014 FLU VAC NO PRSV 4 CHANTELLE 3 YRS+ CPT-4: 94668 04/23/2014 TRIAMCINOLONE ACET INJ NOS CPT-4: J3301 05/20/2013 THER/PROPH/DIAG INJ SC/IM CPT-4: 16503 05/20/2013 PRESCRIP TRANSMIT VIA ERX SY CPT-4: G8553 05/20/2013 URINALYSIS NONAUTO W/O SCOPE CPT-4: 97318 04/30/2013 THER/PROPH/DIAG INJ SC/IM CPT-4: 96047 04/16/2013 ROCEPHIN, PER 250 MG CPT-4: J0696 04/16/2013 PRESCRIP TRANSMIT VIA ERX SY CPT-4: G8553 04/16/2013 ADMIN INFLUENZA VIRUS VAC CPT-4: G0008 03/10/2013 FLULAVAL VACC, 3 YRS & >, IM CPT-4: Q2036 03/10/2013 PRESCRIP TRANSMIT VIA ERX SY CPT-4: G8553 12/02/2012 TRIAMCINOLONE ACET INJ NOS CPT-4: J3301 10/08/2012 INJ TRIGGER POINT 1/2 MUSCL CPT-4: 32699 10/08/2012 ROUTINE VENIPUNCTURE CPT-4: 45472 08/27/2012 DRAIN/INJECT JOINT/BURSA CPT-4: 82730 07/09/2012 TRIAMCINOLONE ACET INJ NOS CPT-4: J3301 07/09/2012 ROUTINE VENIPUNCTURE CPT-4: 92519 05/13/2012 ROUTINE VENIPUNCTURE CPT-4: 01108 04/30/2012 PRESCRIP TRANSMIT VIA ERX SY CPT-4: G8553 04/28/2012 Vital Signs Date Vital 02/14/2018 Blood Pressure 1: 130/78 Code : 8480-6 BMI: 24.6 Code : 29706-9 Heart Rate 1 : 64 bpm Height: 5'1" SpO2: 96% Weight: 130 lbs 12/09/2017 BMI: 24.0 Code: 30124-0 Height: 5'1" Weight: 127 lbs 11/14/2017 Blood Pressure 1: 140/74 Code : 8480-6 Heart Rate 1: 78 bpm SpO2: 94% Weight: 127 lbs 08/13/2017 Blood Pressure 1: 120/76 Code : 8480-6 BMI: 24.9 Code : 48988-8 Heart Rate 1 : 76 bpm Height: 5'1" SpO2: 96% Weight: 132 lbs 05/21/2017 Blood Pressure 1: 132/80 Code : 8480-6 BMI: 26.1 Code : 34355-7 Heart Rate 1 : 61 bpm Height: 5'1" SpO2: 92% Weight: 138 lbs 05/07/2017 Blood Pressure 1: 128/70 Code : 8480-6 BMI: 25.9 Code : 30667-5 Heart Rate 1 : 72 bpm Height: 5'1" SpO2: 96% Weight: 137 lbs 01/08/2017 Blood Pressure 1: 136/82 Code : 8480-6 BMI: 25.5 Code : 75920-8 Heart Rate 1 : 75 bpm Height: 5'1" SpO2: 96% Weight: 135 lbs 01/07/2017 Blood Pressure 1: 142/86 Code : 8480-6 BMI: 25.5 Code : 04441-2 Heart Rate 1 : 75 bpm Height: 5'1" SpO2: 95% Weight: 135 lbs 11/07/2016 Blood Pressure 1: 120/80 Code : 8480-6 BMI: 25.5 Code : 41624-5 Heart Rate 1 : 83 bpm Height: 5'1" SpO2: 97% Weight: 135 lbs 07/26/2016 Blood Pressure 1: 140/80 Code : 8480-6 BMI: 27.0 Code : 59066-8 Heart Rate 1 : 68 bpm Height: 5'1" SpO2: 94% Weight: 143 lbs 04/25/2016 Blood Pressure 1: 128/82 Code : 8480-6 BMI: 28.2 Code : 04931-4 Heart Rate 1 : 71 bpm Height: 5'1" SpO2: 98% Weight: 149 lbs 10/04/2015 Blood Pressure 1: 140/80 Code : 8480-6 BMI: 27.8 Code : 65068-2 Heart Rate 1 : 77 bpm Height: 5'1" SpO2: 96% Weight: 147 lbs 06/29/2015 Blood Pressure 1: 134/70 Code : 8480-6 BMI: 26.8 Code : 33287-2 Heart Rate 1 : 68 bpm Height: 5'1" SpO2: 95% Weight: 142 lbs 02/17/2015 Blood Pressure 1: 128/80 Code : 8480-6 Heart Rate 1: 85 bpm Height: 5'1" SpO2: 96% Weight: 02/07/2015 Blood Pressure 1: 130/68 Code : 8480-6 BMI: 28.7 Code : 16683-2 Heart Rate 1 : 80 bpm Height: 5'1" SpO2: 95% Weight: 152 lbs 03/30/2014 Blood Pressure 1: 142/80 Code : 8480-6 BMI: 27.8 Code : 10198-5 Heart Rate 1 : 83 bpm Height: 5'1" SpO2: 95% Weight: 147 lbs 12/24/2013 Blood Pressure 1: 120/80 Code : 8480-6 BMI: 27.8 Code : 68399-5 Heart Rate 1 : 76 bpm Height: 5'1" Weight: 147 lbs 12/01/2013 Blood Pressure 1: 138/82 Code : 8480-6 BMI: 28.0 Code : 00442-9 Heart Rate 1 : 76 bpm Height: 5'1" SpO2: 91% Weight: 148 lbs 11/27/2013 Blood Pressure 1: 140/90 Code : 8480-6 BMI: 28.0 Code : 35328-8 Heart Rate 1 : 76 bpm Height: 5'1" SpO2: 95% Weight: 148 lbs 08/27/2013 Blood Pressure 1: 132/76 Code : 8480-6 BMI: 26.5 Code : 30444-5 Heart Rate 1 : 72 bpm Height: 5'1" Weight: 140 lbs 05/20/2013 Blood Pressure 1: 122/80 Code : 8480-6 BMI: 26.8 Code : 71425-4 Heart Rate 1 : 80 bpm Height: 5'1" SpO2: 98% Temperature: 37.3 (C) / 99.2 (F) Weight: 142 lbs 04/30/2013 Blood Pressure 1: 140/80 Code : 8480-6 BMI: 27.0 Code : 76994-3 Heart Rate 1 : 73 bpm Height: 5'1" SpO2: 93% Temperature: 37.3 (C) / 99.1 (F) Weight: 143 lbs 04/16/2013 Blood Pressure 1: 100/64 Code : 8480-6 BMI: 27.2 Code : 08253-5 Heart Rate 1 : 80 bpm Height: 5'1" SpO2: 97% Temperature: 37.4 (C) / 99.3 (F) Weight: 144 lbs 03/10/2013 Blood Pressure 1: 132/82 Code : 8480-6 BMI: 27.2 Code : 71646-8 Heart Rate 1 : 80 bpm Height: 5'1" Weight: 144 lbs 12/08/2012 Blood Pressure 1: 144/80 Code : 8480-6 Heart Rate 1: 76 bpm Weight: 12/02/2012 Blood Pressure 1: 118/66 Code : 8480-6 BMI: 27.8 Code : 34298-7 Heart Rate 1 : 88 bpm Height: 5'1" Weight: 147 lbs 10/08/2012 Blood Pressure 1: 116/64 Code : 8480-6 BMI: 27.8 Code : 14522-9 Heart Rate 1 : 80 bpm Height: 5'1" Weight: 147 lbs 08/27/2012 Blood Pressure 1: 122/78 Code : 8480-6 BMI: 28.3 Code : 84540-0 Heart Rate 1 : 84 bpm Height: 5'1" Weight: 150 lbs 07/09/2012 Blood Pressure 1: 136/88 Code : 8480-6 Heart Rate 1: 84 bpm Weight: 150 lbs 05/19/2012 Blood Pressure 1: 124/74 Code : 8480-6 Heart Rate 1: 72 bpm Respiratory Rate : 16 bpm Weight: 152 lbs 04/28/2012 Blood Pressure 1: 130/80 Code : 8480-6 BMI: 29.1 Code : 55161-7 Heart Rate 1 : 56 bpm Height: [...] Encounters Encounter Performer Location Codes Date ( EST. 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 PATIENT, LEVEL IV Diagnosis: Essential (primary) hypertension[ICD10: I10] Diagnosis: Urinary tract infection, site not specified[ICD10: N39.0] Diagnosis: Mixed hyperlipidemia[ICD10: E78.2] Sarah Gillis MD, [facility] CPT-4: 88332 01/08/2017 [id number] EST. 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 PATIENT, LEVEL IV Diagnosis: Essential (primary) hypertension[ICD10: I10] Diagnosis: Mixed hyperlipidemia[ICD10: E78.2] Diagnosis: Actinic keratosis[ICD10: L57.0] Sarah Gillis MD, [facility] CPT- 4: 26538 11/07/2016 ([id number]) 48211 EST. PATIENT, LEVEL IV Diagnosis: Essential (primary) hypertension[ICD10: I10] Diagnosis: Mixed hyperlipidemia[ICD10: E78.2] Sarah Gillis MD, [facility] CPT-4: 52309 07/26/2016 ([id number]) 73298 EST. PATIENT, LEVEL IV Diagnosis: Essential (primary) hypertension[ICD10: I10] Diagnosis: Other nursing home (current) drug therapy[ICD10: Z79.899] Diagnosis: Encounter for therapeutic drug level monitoring[ICD10: Z51.81] Sarah Gillis MD, [facility] CPT-4: 85439 04/25/2016 ([id number]) 83935 EST. PATIENT, LEVEL IV Diagnosis: Essential (primary) hypertension[ICD10: I10] Diagnosis: Cervicalgia[ICD10: M54.2] Diagnosis: Cervical disc disorder, unspecified, unspecified cervical region[ ICD10: M50.90] Sarah Gillis MD, [facility] CPT-4: 44121 10/04/2015 ([id number]) 47486 EST. PATIENT, LEVEL IV Diagnosis: Encounter for therapeutic drug level monitoring[ICD10: Z51.81] Diagnosis: Mixed hyperlipidemia[ICD10: E78.2] Diagnosis: Essential (primary) hypertension[ICD10: I10] Diagnosis: Localized edema[ICD10: R60.0] Sarah Gillis MD, [facility] CPT- 4: 40570 06/29/2015 ([id number]) 02849 EST. PATIENT, LEVEL IV Diagnosis: ESSENTIAL HYPERTENSION[ICD9: 401.9] Diagnosis: Osteoarthritis[ICD9: 715.90] Diagnosis: Left hip pain[ICD9: 719.45] Diagnosis: EDEMA[ICD9: 782.3] Diagnosis: ENCNTR LONG-ANTICOAG USE[ICD9: V58.61] Sarah Gillis MD, [facility] CPT-4: 24009 02/17/2015 ([id number]) 00731 EST. PATIENT, LEVEL IV Diagnosis: ESSENTIAL HYPERTENSION[ICD9: 401.9] Diagnosis: Osteoarthritis[ICD9: 715.90] Diagnosis: EDEMA[ICD9: 782.3] Diagnosis: ENCNTR LONG-ANTICOAG USE[ICD9: V58.61] Diagnosis: Left hip pain[ICD9: 719.45] Katy Gillis MD, [facility] CPT-4: 67822 02/07/2015 ([id number]) 74252 EST. PATIENT, LEVEL IV Diagnosis: ESSENTIAL HYPERTENSION[ICD9: 401.9] Diagnosis: Osteoarthritis[ICD9: 715.90] Diagnosis: Hip pain[ICD9: 719.45] Sarah Gillis MD, [facility] CPT-4: 66051 03/30/2014 ([id number]) 81111 EST. PATIENT, LEVEL III Diagnosis: ESSENTIAL HYPERTENSION[ICD9: 401.9] Diagnosis: Anticoagulant long-term use[ICD9: V58.61] Diagnosis: SCIATICA[ICD9: 724.3] Sarah Gillis MD [facility] CPT-4: 85668 12/24/2013 ([id number]) 31250 EST. PATIENT, LEVEL III Diagnosis: Sacroiliitis[ICD9: 720.2] Diagnosis: SCIATICA[ICD9: 724.3] Sarah Gillis MD [facility] CPT-4: 46613 12/01/2013 ([id number]) 87074 EST. PATIENT, LEVEL III Diagnosis: EDEMA[ICD9: 782.3] Diagnosis: LONG-TERM USE ANTICOAGUL[ICD9: V58.61] Sarah Gillis MD [facility] CPT-4: 16242 11/27/2013 ([id number]) 72829 EST. PATIENT, LEVEL III Diagnosis: ESSENTIAL HYPERTENSION[SNOMED: 96903219] Sarah Gillis MD [facility] CPT-4: 70792 08/27/2013 ([id number]) 29549 EST. PATIENT, LEVEL III Diagnosis: Acute bronchitis[ICD9: 466.0] Diagnosis: COUGH[ICD9: 786.2] Sarah Gillis MD [facility] CPT-4: 59288 05/20/2013 ([id number]) 67796 EST. PATIENT, LEVEL III Diagnosis: ACUTE BRONCHITIS[ICD9: 466.0] Diagnosis: Memory loss[ICD9: 780.93] Sarah Gillis MD [facility] CPT-4: 85426 04/30/2013 ([id number]) 68354 EST. PATIENT, LEVEL III Diagnosis: ACUTE BRONCHITIS[ICD9: 466.0] Diagnosis: Cough[ICD9: 786.2] Sarah Gillis MD [facility] CPT-4: 55436 04/16/2013 ([id number]) 71009 EST. PATIENT, LEVEL III Diagnosis: ESSENTIAL HYPERTENSION[SNOMED: 64753654] Sarah Gillis MD [facility] CPT-4: 36957 03/10/2013 ([id number]) Miscellaneous no charge Diagnosis: BLISTER FOOT/TOE[ICD9: 917.2] Sarah Gillis MD, [facility] CPT- 4: 22676 12/08/2012 ([id number]) 83804 EST. PATIENT, LEVEL III Diagnosis: BLISTER FOOT/TOE[ICD9: 917.2] Diagnosis: CELLULITIS OF FOOT[ICD9: 682.7] Diagnosis: Osteoarthritis[ICD9: 715.90] [facility] CPT- 4: 95941 12/02/2012 ([id number]) 77187 EST. PATIENT, LEVEL III Diagnosis: ESSENTIAL HYPERTENSION[SNOMED: 46006079] [facility] CPT-4: 09825 10/08/2012 ([id number]) 65263 EST. PATIENT, LEVEL III Diagnosis: Bruising[ICD9: 924.9] Diagnosis: ENCNTR LONG-ANTICOAG USE[ICD9: V58.61] [facility] CPT-4: 37958 08/27/2012 ([id number]) 34503 EST. PATIENT, LEVEL III Diagnosis: ESSENTIAL HYPERTENSION[SNOMED: 39915939] Diagnosis: Sacroiliitis[ICD9: 720.2] Sarah Gillis MD, [facility] CPT-4: 07931 07/09/2012 ([id number]) 71438 EST. 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 11/14/2017 Appointment: Mary Gonzalez WPtel: [address] [place], [place] [id number] (30 min) Complex 11/14/2017 Patient Education: Patient [...] effectiveness. 08/13/2017 [facility]ment[facility] [phone] [phone] ([facility] Complex 08/13/2017 Patient Education: Patient [...] effectiveness. 05/21/2017 [facility]ment: [phone] [facility] ([facility] min) Complex 05/21/2017 Patient Education: [...] for effectiveness. 05/07/2017 Appointment: Mary Gonzalez WPtel: [phone] [facility] (30 min) Complex 05/07/2017 Patient Education: Patient Medication Summary Completed 05/07/2017 Appointment: Sarah Gillis WPtel: [phone] [facility] (15 min) Moderate 02/05/2017 Visit Plan: [...] 3 weeks 01/08/2017 [phone] [facility] ([facility] min) Moderate 01/08/2017 Patient Education: Patient [...] the medications for effectiveness. 01/07/2017 Appointment: [facility] [phone] [facility] (10 min) Simple 01/07/2017 Patient Education: Patient [...] liver response to medications. 11/07/2016 App[facility]ment: [facility] [phone] [facility] (15 min) Moderate 11/07/2016 Patient Education: Patient Medication Summary Completed 11/07/2016 [phone] [facility] ([facility] min) Moderate 10/24/2016 Visit Plan: Hypertension [...] medications. 07/26/2016 Appointment: Sarah Gillis WPtel: [phone] [facility] [place] (15 min) Moderate 07/26/2016 Patient Education: Patient [...] care. 04/25/2016 Appointment: [phone] [facility] (15 min) Moderate 04/25/2016 Patient Education: Patient Medication Summary Completed 04/25/2016 Appointment: Sarah Gillis WPtel: [address] [place], [place] [id number] (30 min) Complex 04/03/2016 Visit Plan: Hypertension [...] Summary Completed 10/04/2015 Appointment: Sarah Gillis WPtel: [facility] (30 min) Complex 09/28/2015 Patient Education: Patient [...] symptoms. 06/29/2015 Appointment: [phone] [facility] ([facility] min) Complex 06/29/2015 Patient Education: Patient [...] Completed 02/07/2015 Appointment: [facility] [phone] [facility] Follow up 06/28/2014 Appointment: Injection 04/23/2014 Patient [...] DAILY. 03/30/2014 Appointment: Sarah Gillis WPtel: [phone] [facility] Follow up 03/30/2014 Patient Education: Patient Medication [...] home. 12/24/2013 Appointment: Sarah Gillis WPtel: [phone] [facility] Follow up 12/24/2013 Patient Education: Patient Medication [...] 3.5. 11/27/2013 Appointment: [place] [phone] Other 11/27/2013 Patient Education: Patient Medication Summary Completed 11/27/2013 Visit Plan: Hypertension - well controlled - continue with current medications, continue with no added salt diet. Pt has been encouraged to exercise daily. The pt has been advised to call the office if there are any acute concerns about change in blood pressure readings at home. 08/27/2013 Appointment: [facility]el[facility] [phone] [facility] Follow up 08/27/2013 Patient Education: Patient Medication [...] of inflammation 05/20/2013 Appointment: Sarah Gillis WPtel: [address] [place], [place] [id number] [facility] 05/20/2013 Patient Education: Patient Medication Summary Completed [...] at home. 03/10/2013 Appointment: Sarah Gillis WPtel: [address] [place], [place] [id number] Follow up 03/10/2013 Patient Education: Patient Medication Summary Completed 03/10/2013 Patient Education: Hypertension Completed 03/10/2013 Appointment: Sarah Gillis WPtel: [address] [place], [place] [phone] Follow up 12/17/2012 Visit Plan: Wound care to lesion -neosporin, call if worsening symptoms - finish antibotics 12/08/2012 Appointment: [facility]el[facility] [phone] [facility] [place] Other 12/08/2012 Patient Education: Patient Medication Summary [...] pain symptoms. 12/02/2012 Appointment: Sarah Gillis WPtel: [facility] Follow up 12/02/2012 Patient Education: Patient Medication [...] injection today. 10/08/2012 Appointment: Sarah Gillis WPtel: [facility] [place] Follow up 10/08/2012 Patient Education: Patient Medication Summary Completed 10/08/2012 Patient Education: Hypertension Completed 10/08/2012 Visit Plan: Abnormal bruising-nursing home coumadin therapy- plan to check PT/INR today in the office and continue to monitor symptoms- instructed patient to call if bleeding/bruising continues or if she becomes weak , dizzy, light headed, etc. Patient and verbalized understanding of plan. 08/27/2012 Appointment: Katy Shore WPtel: [phone] [place] Other 08/27/2012 Patient Education: Patient Medication Summary Completed 08/27/2012 Appointment: Sarah Gillis WPtel: [facility] [place] Follow up 07/14/2012 Visit Plan: Hypertension - [...] they worsen. 07/09/2012 Appointment: Sarah Gillis WPtel: [phone] [facility] Other 07/09/2012 Patient Education: Patient Medication [...] times daily. 05/19/2012 Appointment: Sarah Gillis WPtel: [phone] [facility] Follow up 05/19/2012 Patient Education: Hypertension Completed 05/19/2012 Patient Education: Patient Medication Summary Completed 05/19/2012 Appointment: Sarah Gillis WPtel: [phone] [facility] Lab Draw 05/13/2012 Patient Education: Patient [...] for break through pain symptoms. 04/28/2012 Appointment: Elis [facility]el[facility] [phone] [facility] New Patient 04/28/2012 Patient Education: Patient Medication Summary Completed 04/28/2012 Patient Education: High Blood Pressure: Essential Hypertension Completed 2011 App[facility]ment: Sarha Gill[facility]Ptel[facility] [phone] [facility] [facility]/ New Patient 10/15/2011 Instructions Comment . Bronchitis [...] start on depakote 125mg at hs . UTI - pt with positive urinalysis [...] INR is between 2.0 and 3.5. . Bronchitis - acute case of bronchitis identified. Pt has been given antibiotics, breathing treatments as appropriate, and pt has been instructed to call if symptoms are not improved, or if symptoms acutely worsen. . Edema - pt has been advised [...] left ear -re-eval in 3 weeks . Left leg ecchymosis - improving - [...] to closely monitor the medications for effectiveness. Stop the bisoprolol/hctz and the hydrochlorothiazide. START [...] Use tylenol for break through pain symptoms. the coumadin 4mg is Saturday/Saturday/Saturday/Saturday the [...] the voltaren gel four times daily. . Esophageal Reflux - the patient has [...] do not improve or if they worsen. Hip pain - pt to use VOLTAREN [...] with any questions or concerns. . 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 Patient and verbalized understanding of plan.
--- OUTSIDE RECORDS SUMMARY | 2018-08-26 10:56 | XMS REPORT | CCD ---
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 Name Role Phone PP Unavailable CCM Unavailable Summary Purpose Interface Exchange Insurance Providers Payer name Policy type / Coverage type Covered alliance party ID Effective Begin Date Effective End Date WPS Medicare Part B Medicare Part B [id number] 2013 Unknown [facility] Medicare Part B [id number] 2013 Unknown Family history Brother Diagnosis Age [...] 2 1 in 2010, 1 lives in [place] 11/07/2016 Marital status Unknown 04/28/2012 Employment Unknown Retired 04/28/[address]: 1188611 Quit over 10 years ago 04/28/[address]: 556233241 Never drinks alcohol 04/28/2012 Allergies, Adverse Reactions, [...] 788.1 ICD-10: R30.0 Active 01/07/2017 Unknown Other group home (current) drug therapy ICD-9: V58.69 ICD-10: [...] 788.1 ICD-10: R30.0 01/07/2017 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 ICD-9: 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.69 ICD-10: Z79.899 [...] Instructions Depakote 125 mg tablet,delayed release RxNorm: 6074222 Tablet(s) Tablet(s) 1 Tablet(s) PO QPM 05/16/2018 12/11/2018 Active PLEASE SEND REFILL REQUESTS ELECTRONICALLY pravastatin 40 mg tablet RxNorm: 612446 TAKE ONE TABLET BY MOUTH EVERY DAY 03/17/2018 02/09/2019 Active Generic For:*PRAVACHOL 40 MG TABLET 03/17/2018 8:03:02 AM amlodipine 5 mg tablet RxNorm: 812775 TAKE ONE (1) TABLET BY MOUTH DAILY 02/18/2018 02/12/2019 Active Generic For:NORVASC 5 MG TABLET 02/18/2018 10:12:27 AM Vitamin D3 5,000 unit tablet RxNorm: 736379 1 Tablet(s) PO daily 02/14/2018 08/12/2018 Active may give OTC bottle Vitamin D3 5,000 unit tablet RxNorm: 045088 1 Tablet(s) PO daily 02/14/2018 02/13/2018 Inactive Vitamin D2 50,000 unit capsule RxNorm: 1530558 1 Capsule(s) PO QW 02/14/2018 02/13/2018 Inactive Vitamin D2 50,000 unit capsule RxNorm: 5998642 1 Capsule(s) PO QW x8 weeks then stop 02/14/2018 04/14/2018 Inactive amlodipine 5 mg tablet RxNorm: 532306 1 Tablet(s) PO daily 02/17/2018 Inactive Generic For:NORVASC 5 MG TABLET REFILL REQUEST 08/27/2016 10:47:17 AM Coumadin 5 mg tablet RxNorm: 381492 1 Tablet(s) PO daily except 1/2 Tab on Sat, Sat12/16/2017 06/15/2018 Active hydrochlorothiazide 12.5 mg tablet RxNorm: 902604 1 Tablet(s) PO daily 12/16/2017 07/13/2018 Active hydrochlorothiazide 12.5 mg tablet RxNorm: 972538 Tablet(s) Tablet(s) 1 Tablet(s) PO daily 11/18/2017 12/15/2017 Inactive PLEASE SEND REFILL REQUESTS ELECTRONICALLY Depakote 125 mg tablet,delayed release RxNorm: 3555862 Tablet(s) Tablet(s) 1 Tablet(s) PO QPM 10/17/2017 05/14/2018 Inactive PLEASE SEND REFILL REQUESTS ELECTRONICALLY hydrochlorothiazide 12.5 mg tablet RxNorm: 386487 Tablet(s) Tablet(s) 1 Tablet(s) PO daily 10/17/2017 11/17/2017 Inactive PLEASE SEND REFILL REQUESTS ELECTRONICALLY Coumadin 5 mg tablet RxNorm: 892452 1 Tablet(s) daily TAKE 1 TABLET BY MOUTH DAILY 08/15/2017 12/15/2017 Inactive Coumadin 5 mg tablet RxNorm: 091829 Tablet(s) TAKE 1 TABLET BY MOUTH DAILY 06/24/2017 08/14/2017 Inactive pravastatin 40 mg tablet RxNorm: 241636 Tablet(s) TAKE ONE TABLET BY MOUTH EVERY DAY 05/27/2017 03/16/2018 Inactive Voltaren 1 % topical gel RxNorm: 413387 4 Gram(s) TOP QID 05/2106/19/2017 Inactive Depakote 125 mg tablet,delayed release RxNorm: 4903684 Tablet(s) 1 Tablet(s) PO QPM 04/22/2017 10/16/2017 Inactive hydrochlorothiazide 12.5 mg tablet RxNorm: 828264 Tablet(s) 1 Tablet(s) PO daily 03/22/2017 10/16/2017 Inactive amlodipine 5 mg tablet RxNorm: 434502 1 Tablet(s) PO daily 02/12/2018 Inactive Generic For:NORVASC 5 MG TABLET REFILL REQUEST 08/27/2016 10:47:17 AM cephalexin 500 mg tablet RxNorm: 981636 1 Tablet(s) PO TID 01/17/2017 Inactive cephalexin 500 mg tablet RxNorm: 520898 1 Tablet(s) PO TID 01/07/2017 Inactive Coumadin 5 mg tablet RxNorm: 195946 TAKE 1 TABLET BY MOUTH DAILY EXCEPT 1/2 TABLET ON SATURDAY AND Saturday12/26/2016 06/23/2017 Inactive Generic For:COUMADIN 5MG TAB 12/26/2016 9:17:49 AM N O T I C E Last quantity doesn't match original quantity Depakote 125 mg tablet,delayed release RxNorm: 4777668 Tablet(s) 1 Tablet(s) PO QPM 10/25/2016 04/21/2017 Inactive Coumadin 5 mg tablet RxNorm: 915508 TAKE 1 TABLET BY MOUTH DAILY EXCEPT 1/2 TABLET ON SATURDAY AND Saturday09/27/2016 12/25/2016 Inactive Generic For:COUMADIN 5MG TAB N O T I C E Last quantity doesn't match original quantity REFILL REQUEST 09/27/2016 9:43:11 AM Coumadin 4 mg tablet RxNorm: 310732 Tablet(s) as doctor directed TAKE 1 TABLET 4 days per week 09/27/2016 04/24/2017 Inactive Generic For:COUMADIN 4MG TAB amlodipine 5 mg tablet RxNorm: 309254 TAKE 1 TABLET BY MOUTH DAILY 08/27/2016 09/26/2016 Inactive Generic For:NORVASC 5 MG TABLET REFILL REQUEST 08/27/2016 10:47: 17 AM hydrochlorothiazide 12.5 mg tablet RxNorm: 999295 Tablet(s) 1 Tablet(s) PO daily 08/27/2016 03/21/2017 Inactive pravastatin 40 mg tablet RxNorm: 271089 Tablet(s) TAKE ONE TABLET BY MOUTH EVERY DAY 06/29/2016 05/24/2017 Inactive Coumadin 5 mg tablet RxNorm: 647544 1 Tablet(s) PO daily except 1/2 tab on , Sat06/14/2016 09/26/2016 Inactive Coumadin 5 mg tablet RxNorm: 699423 1 Tablet(s) PO daily except 1/2 tab on , Sat06/12/2016 12/08/2016 Inactive Depakote 125 mg tablet,delayed release RxNorm: 4717114 1 Tablet(s) PO QPM 04/30/2016 10/24/2016 Inactive amlodipine 5 mg tablet RxNorm: 851289 Tablet(s) TAKE ONE TABLET BY MOUTH EVERY DAY 03/06/2016 08/26/2016 Inactive Generic For:NORVASC 5 MG TABLET 2015 9:02 :57 AM N O T I C E Last quantity doesn't match original quantity hydrochlorothiazide 12.5 mg tablet RxNorm: 953493 1 Tablet(s) PO daily 02/01/2016 08/26/2016 Inactive Coumadin 5 mg tablet RxNorm: 212901 1 Tablet(s) PO daily except 1/2 tab on , Sat12/26/2015 06/11/2016 Inactive Coumadin 5 mg tablet RxNorm: 421423 TAKE 1 TABLET BY MOUTH 3 DAYS PER WEEK (, SAT) 11/10/2015 12/25/2015 Inactive Generic For:COUMADIN 5MG TAB PT SAYS TAKING DIFFERENT NOW...WE NEED NEW RX PLEASE Coumadin 5 mg tablet RxNorm: 722891 Tablet(s) TAKE 1 TABLET BY MOUTH 5 DAYS PER WEEK Sun Sat11/04/201511/08 Inactive Generic For:COUMADIN 5MG TAB 10/04/2015 10:19:46 AM Depakote 125 mg tablet,delayed release RxNorm: 5147402 1 Tablet(s) PO QPM 11/04/2015 04/29/2016 Inactive Coumadin 5 mg tablet RxNorm: 135080 TAKE 1 TABLET BY MOUTH 3 DAYS PER WEEK (SATLAURA, SAT) 10/04/2015 11/03/2015 Inactive Generic For:COUMADIN 5MG TAB 10/04/2015 10:19:46 AM amlodipine 5 mg tablet RxNorm: 706268 Tablet(s) TAKE ONE TABLET BY MOUTH EVERY DAY 09/12/2015 03/05/2016 Inactive Generic For:NORVASC 5 MG TABLET 2015 9:02 :57 AM N O T I C E Last quantity doesn't match original quantity Coumadin 5 mg tablet RxNorm: 962312 1 Tablet(s) daily 201510/03/2015 Inactive Voltaren 1 % topical gel RxNorm: 463606 4 Gram(s) TOP QID 06/2904/24/2016 Inactive Depakote 125 mg tablet,delayed release RxNorm: 8121287 1 Tablet(s) PO QPM 06/29/2015 10/26/2015 Inactive hydrochlorothiazide 12.5 mg tablet RxNorm: 819208 1 Tablet(s) PO daily 06/29/2015 01/24/2016 Inactive Depakote 125 mg tablet,delayed release RxNorm: 4177294 1 Tablet(s) PO QPM 06/29/2015 06/28/2015 Inactive pravastatin 40 mg tablet RxNorm: 267355 Tablet(s) TAKE ONE TABLET BY MOUTH EVERY DAY 06/29/2015 06/28/2016 Inactive Generic For:*PRAVACHOL 40 MG TABLET Coumadin 5 mg tablet RxNorm: 153126 1 Tablet(s) PO [facility], [facility] days per week 05/09/2015 06/30/2015 Inactive take 4mg on sun sat amlodipine 5 mg tablet RxNorm: 021960 TAKE ONE TABLET BY MOUTH EVERY DAY 2015 09/06/2015 Inactive Generic For:NORVASC 5 MG TABLET 2015 9:02:57 AM N O T I C E Last quantity doesn't match original quantity Coumadin 5 mg tablet RxNorm: 784413 1 Tablet(s) PO LAURA CLARKE, [facility] 3 days per week 11/15/2014 05/08/2015 Inactive take 4mg on sun sat Coumadin 4 mg tablet RxNorm: 674418 Tablet(s) as doctor directed TAKE 1 TABLET 4 days per week 11/15/2014 06/12/2015 Inactive Generic For:COUMADIN 4MG TAB Coumadin 5 mg tablet RxNorm: 594883 1 Tablet(s) PO LAURA CLARKE, 10/27/2014 11/14/2014 Inactive TAKE 4MG ON SUN Sat [SAVINGS FOR NON-COVERED DRUGS -- BIN: [id number], PCN: ASPROD1, Group: XXXXX, ID# [id number], Questions: . THIS IS NOT INSURANCE.] Coumadin 5 mg tablet RxNorm: 784293 1 Tablet(s) PO LAURA CLARKE, [facility] 10/27/2014 10/26/2014 Inactive amlodipine 5 mg tablet RxNorm: 768275 1 Tablet(s) PO daily 03/10/2015 Inactive Generic For:NORVASC 5 MG TABLET Generic For:NORVASC 5 MG TABLET 2012 8:54:53 AM pravastatin 40 mg tablet RxNorm: 603346 TAKE ONE TABLET BY MOUTH EVERY DAY 08/12/2014 06/28/2015 Inactive Generic For:*PRAVACHOL 40 MG TABLET Coumadin 4 mg tablet RxNorm: 426919 TAKE 1 TABLET BY MOUTH DAILY 08/12/2014 11/14/2014 Inactive Generic For:COUMADIN 4MG TAB pravastatin 40 mg tablet RxNorm: 208721 1 Tablet(s) PO daily TAKE ONE TABLET BY MOUTH EVERY DAY 08/11/2014 08/11/2014 Inactive Generic For:*PRAVACHOL 40 MG TABLET Generic For:*PRAVACHOL 40 MG TABLET Coumadin 4 mg tablet RxNorm: 304657 Tablet(s) PO TAKE ONE TABLET BY MOUTH EVERY DAY 08/11/2014 08/11/2014 Inactive Generic For:COUMADIN 4MG TAB Generic For: COUMADIN 4MG TAB [SAVINGS FOR NON-COVERED DRUGS -- BIN:[id number], PCN: ASPROD1, Group: XXXXX, ID# [id number], Questions: . THIS IS NOT INSURANCE.] amlodipine 5 mg tablet RxNorm: 549734 1 Tablet(s) daily 1 Tablet(s) PO daily TAKE ONE (1) TABLET BY MOUTH DAILY 05/12/2014 09/13/2014 Inactive Generic For:NORVASC 5 MG TABLET Generic For:NORVASC 5 MG TABLET 05/18/2013 8:54:53 AM amlodipine 5 mg tablet RxNorm: 078592 1 Tablet(s) PO daily TAKE ONE (1) TABLET BY MOUTH DAILY 01/14/2014 05/11/2014 Inactive Generic For:NORVASC 5 MG TABLET Generic For:NORVASC 5 MG TABLET 05/18/2013 8:54:53 AM Coumadin 4 mg tablet RxNorm: 788635 TAKE 1 TABLET BY MOUTH DAILY 01/14/2014 08/11/2014 Inactive Generic For:COUMADIN 4MG TAB amlodipine 5 mg tablet RxNorm: 375890 1 Tablet(s) PO daily TAKE ONE (1) TABLET BY MOUTH DAILY 01/14/2014 01/08/2015 Inactive Generic For:NORVASC 5 MG TABLET Generic For:NORVASC 5 MG TABLET 05/18/2013 8:54:53 AM amlodipine 5 mg tablet RxNorm: 259075 1 Tablet(s) PO daily TAKE ONE (1) TABLET BY MOUTH DAILY 09/18/2013 01/13/2014 Inactive Generic For:NORVASC 5 MG TABLET Generic For:NORVASC 5 MG TABLET 05/18/2013 8:54:53 AM Coumadin 4 mg tablet RxNorm: 828843 4mg daily Tablet(s) PO daily 07/30/2013 01/13/2014 Inactive Generic For:COUMADIN 4MG TAB pravastatin 40 mg tablet RxNorm: 776917 Tablet(s) PO TAKE ONE TABLET BY MOUTH EVERY DAY 07/20/2013 08/10/2014 Inactive Generic For:*PRAVACHOL 40 MG TABLET Generic For:*PRAVACHOL 40 MG TABLET Kenalog 40 mg/mL suspension for injection RxNorm: 3541909 Milliliter(s) Inj 05/20/2013 05/20/2013 Inactive azithromycin 500 mg tablet RxNorm: 1965133 1 Tablet(s) PO daily 05/20/2013 05/24/2013 Inactive amlodipine 5 mg tablet RxNorm: 165722 Tablet(s) PO TAKE ONE (1) TABLET BY MOUTH DAILY 05/18/2013 05/17/2013 Inactive Generic For:NORVASC 5 MG TABLET Generic For: NORVASC 5 MG TABLET 05/18/2013 8:54:53 AM amlodipine 5 mg tablet RxNorm: 819131 1 Tablet(s) PO daily TAKE ONE (1) TABLET BY MOUTH DAILY 05/18/2013 09/17/2013 Inactive Generic For:NORVASC 5 MG TABLET Generic For:NORVASC 5 MG TABLET 05/18/2013 8:54:53 AM Coumadin 4 mg tablet RxNorm: 829475 2mg wed 4 mg other Tablet(s) PO daily 04/28/2013 07/29/2013 Inactive Generic For:COUMADIN 4MG TAB Coumadin 4 mg tablet RxNorm: 101622 4mg daily Tablet(s) PO daily 04/16/2013 04/27/2013 Inactive Generic For:COUMADIN 4MG TAB Rocephin 500 mg solution for injection RxNorm: 744424 Inj 04/1604/16/2013 Inactive amoxicillin 500 mg tablet RxNorm: 797915 1 Tablet(s) PO TID 04/22/2013 Inactive Coumadin 4 mg tablet RxNorm: 360503 Tablet(s) PO TAKE ONE TABLET BY MOUTH EVERY DAY 04/16/2013 08/10/2014 Inactive Generic For:COUMADIN 4MG TAB Generic For: COUMADIN 4MG TAB Coumadin 4 mg tablet RxNorm: 410717 4mg daily Tablet(s) PO daily 03/18/2013 04/15/2013 Inactive Generic For:COUMADIN 4MG TAB Coumadin 4 mg tablet RxNorm: 476227 2mg on tuesdays, 4mg others Tablet(s) PO daily 03/10/2013 03/17/2013 Inactive Generic For:COUMADIN 4MG TAB Influenza Virus Vaccine 0.5 mL RxNorm: IM 03/10/2013 03/10/2013 Inactive amlodipine 5 mg tablet RxNorm: 625548 Tablet(s) PO TAKE ONE (1) TABLET BY MOUTH DAILY 01/22/2013 05/17/2013 Inactive Generic For:NORVASC 5 MG TABLET 01/22/2013 9: 42:13 AM cephalexin 500 mg tablet RxNorm: 129317 1 Tablet(s) PO TID 12/08/2012 Inactive amlodipine 5 mg tablet RxNorm: 462430 Tablet(s) PO TAKE ONE (1) TABLET BY MOUTH DAILY 09/22/2012 01/21/2013 Inactive Generic For:NORVASC 5 MG TABLET 09/20/2012 9: 10AM 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 Thank you! Coumadin 4 mg tablet RxNorm: 809696 1 Tablet(s) PO daily TAKE ONE TABLET BY MOUTH EVERY DAY 09/15/2012 03/09/2013 Inactive Generic For:COUMADIN 4MG TAB Coumadin 4 mg tablet RxNorm: 083304 Tablet(s) PO TAKE ONE TABLET BY MOUTH EVERY DAY 09/12/2012 09/14/2012 Inactive Generic For:COUMADIN 4MG TAB Coumadin 4 mg tablet RxNorm: 637275 1 Tablet(s) PO daily 201209/11/2012 Inactive new dose Coumadin 4 mg tablet RxNorm: 558376 1 Tablet(s) PO daily 201207/15/2012 Inactive Coumadin 3 mg tablet RxNorm: 030092 1 1/2 Tablet(s) PO daily 07/16/2012 Inactive pravastatin 40 mg tablet RxNorm: 752008 1 Tablet(s) PO daily 07/19/2013 Inactive Coumadin 3 mg tablet RxNorm: 822323 1 1/2 Tablet(s) PO daily 07/15/2012 Inactive amlodipine 5 mg tablet RxNorm: 993183 1 Tablet(s) PO daily 05/201209/21/2012 Inactive Voltaren 1 % Topical Gel RxNorm: 609545 4 Gram(s) TOP QID 04/2805/27/2012 Inactive Chikis 180 mg tablet RxNorm: 014102 1 Tablet(s) PO daily No Start Date Active hydrochlorothiazide 12.5 mg tablet RxNorm: 665233 1 Tablet(s) PO daily No Start Date 06/28/2015 Inactive Ziac 2.5 mg-6.25 mg tablet RxNorm: 795419 1 Tablet(s) PO daily No Start Date 09/15/2013 Inactive Coumadin 3 mg tablet RxNorm: 467102 Tablet(s) PO No Start Date 04/30/2012 Inactive pravastatin 40 mg tablet RxNorm: 453194 1 Tablet(s) PO daily No Start Date 06/25/2012 Inactive Medication Administered Medication Codes Instructions Start Date Status Kenalog 40 mg/mL suspension for injection RxNorm: 6837461 Milliliter 05/20/2013 No longer Active Rocephin 500 mg solution for injection RxNorm: 024492 04/16/2013 No longer Active Influenza Virus Vaccine [...] (primary) hypertension ICD-10: I10 ICD-9: 401.9 01/08/2017 Other group home (current) drug therapy ICD-10: Z79.899 ICD-9: [...] Code Item Item Code Result Date Pt Ivl7543 PT 28.9 seconds 04/18/2018 Pt Ueg5030 INR 2.8 04/18/2018 Pt Bzq6422 Low Intensity - 1.5-2.0 04/18/2018 Pt Qwi2303 Mod intensity - 2.0-3.0 04/18/2018 Pt Ewr0128 Hi intensity - 3.0-4.0 04/18/2018 Pt Xsh5588 PT 23.6 seconds 03/14/2018 Pt Dtd0015 INR 2.1 03/14/2018 Pt Xsi6409 Low Intensity - 1.5-2.0 03/14/2018 Pt Lbe3579 Mod intensity - 2.0-3.0 03/14/2018 Pt Xzv4027 Hi intensity - 3.0-4.0 03/14/2018 Comp Metabolic Iqr017 NA 142 mEq/L 02/14/2018 Comp Metabolic Aem973 K 4.0 mEq/L 02/14/2018 Comp Metabolic Czu962 CL 107 mEq/L 02/14/2018 Comp Metabolic Yol849 CO2 25.0 mEq/L 02/14/2018 Comp Metabolic Jvn820 ANION GAP 14 02/14/2018 Comp Metabolic Uhe497 GLUCOSE 71 mg/dL 02/14/2018 Comp Metabolic Vfn131 Creat 0.8 mg/dL 02/14/2018 Comp Metabolic Uye719 eGFR 77 ml/min/1.73m2 02/14/2018 Comp Metabolic Oqg189 BUN 11 mg/dL 02/14/2018 Comp Metabolic Bkx897 B/C Ratio 14.5 Ratio 02/14/2018 Comp Metabolic Fqb403 CALCIUM 9.3 mg/dL 02/14/2018 Comp Metabolic Hdd192 ALK PHOS 56 U/L 02/14/2018 Comp Metabolic Bmh314 AST(SGOT) 13 U/L 02/14/2018 Comp Metabolic Dxg829 ALT(SGPT) 8 U/L 02/14/2018 Comp Metabolic Lwp981 BILI T 0.7 mg/dL 02/14/2018 Comp Metabolic Qlh609 ALBUMIN 3.7 g/dL 02/14/2018 Comp Metabolic Kpu852 TPRO 6.5 g/dL 02/14/2018 Comp Metabolic Jst330 GLOB 2.8 g/dL 02/14/2018 Comp Metabolic Orn192 A/G Ratio 1.3 Ratio 02/14/2018 Comp Metabolic Mry081 Osmo 281 mOsmo 02/14/2018 Tsh Ord6 TSH (3rd IS) 2.84 uIU/mL 02/14/2018 Cbc With Differential Ord2 WBC 4.67 K/ul 02/14/2018 Cbc With Differential Ord2 RBC 4.86 M/ul 02/14/2018 Cbc With Differential Ord2 HGB 15.8 g/dl 02/14/2018 Cbc With Differential Ord2 HCT 47.9 % 02/14/2018 Cbc With Differential Ord2 Neut% 66.3 % 02/14/2018 Cbc With Differential Ord2 Lymph% 18.8 % 02/14/2018 Cbc With Differential Ord2 MCV 98.6 fl 02/14/2018 Cbc With Differential Ord2 Benson% 12.8 % 02/14/2018 Cbc With Differential Ord2 MCH 32.5 pg 02/14/2018 Cbc With Differential Ord2 MCHC 33.0 pg 02/14/2018 Cbc With Differential Ord2 Eos% 1.9 % 02/14/2018 Cbc With Differential Ord2 Baso% 0.2 % 02/14/2018 Cbc With Differential Ord2 PLT 223 K/ul 02/14/2018 Cbc With Differential Ord2 RDW 14.8 % 02/14/2018 Cbc With Differential Ord2 Neut ABS# 3.09 K/ul 02/14/2018 Cbc With Differential Ord2 Lymph ABS# 0.88 K/ul 02/14/2018 Cbc With Differential Ord2 Benson ABS# 0.6 K/ul 02/14/2018 Cbc With Differential Ord2 Eos ABS# 0.1 K/ul 02/14/2018 Cbc With Differential Ord2 Baso ABS# 0.0 K/ul 02/14/2018 Pt Qeo3544 PT 26.2 seconds 02/14/2018 Pt Jtj4369 INR 2.4 02/14/2018 Pt Xkb9513 Low Intensity - 1.5-2.0 02/14/2018 Pt Lpx1316 Mod intensity - 2.0-3.0 02/14/2018 Pt Kyl4813 Hi intensity - 3.0-4.0 02/14/2018 Vitamin D 25 Oh Xbf8692 VITAMIN D, 25 HYDROXY 14.31 ng/mL Valproic Acid Pfe120 VALPROIC 20.0 ug/ml 02/14/2018 Pt Mui7228 PT 29.2 seconds 01/16/2018 Pt Sbe5092 INR 2.7 01/16/2018 Pt Lar7493 Low Intensity - 1.5-2.0 01/16/2018 Pt Gno9593 Mod intensity - 2.0-3.0 01/16/2018 Pt Yek8845 Hi intensity - 3.0-4.0 01/16/2018 Pt Gpv1416 PT 29.1 seconds 12/09/2017 Pt Was8237 INR 2.7 12/09/2017 Pt Erb6622 Low Intensity - 1.5-2.0 12/09/2017 Pt Caf2434 Mod intensity - 2.0-3.0 12/09/2017 Pt Rpa3893 Hi intensity - 3.0-4.0 12/09/2017 Pt Raq6232 PT 25.5 seconds 10/31/2017 Pt Ydh1502 INR 2.3 10/31/2017 Pt Eec6144 Low Intensity - 1.5-2.0 10/31/2017 Pt Nhf1242 Mod intensity - 2.0-3.0 10/31/2017 Pt Jff6157 Hi intensity - 3.0-4.0 10/31/2017 Pt Udw8711 PT 29.5 seconds 10/03/2017 Pt Pfl8685 INR 2.8 10/03/2017 Pt Tsy0652 Low Intensity - 1.5-2.0 10/03/2017 Pt Sre4760 Mod intensity - 2.0-3.0 10/03/2017 Pt Yig7340 Hi intensity - 3.0-4.0 10/03/2017 Pt Yhb9137 PT 28.1 seconds 08/30/2017 Pt Vut0529 INR 2.6 08/30/2017 Pt Gdq3848 Low Intensity - 1.5-2.0 08/30/2017 Pt Efc7115 Mod intensity - 2.0-3.0 08/30/2017 Pt Iog8041 Hi intensity - 3.0-4.0 08/30/2017 Pt Ugh8042 PT 33.2 seconds 08/15/2017 Pt Vvb7473 INR 3.2 08/15/2017 Pt Usx6589 Low Intensity - 1.5-2.0 08/15/2017 Pt Vgd2426 Mod intensity - 2.0-3.0 08/15/2017 Pt Nos8276 Hi intensity - 3.0-4.0 08/15/2017 Pt Tpe6913 PT 31.5 seconds 07/10/2017 Pt Rnw4817 INR 3.0 07/10/2017 Pt Rbz5894 Low Intensity - 1.5-2.0 07/10/2017 Pt Kkx4484 Mod intensity - 2.0-3.0 07/10/2017 Pt Eul6387 Hi intensity - 3.0-4.0 07/10/2017 Pt Piq3758 PT 33.5 seconds 05/31/2017 Pt Qvd8295 INR 3.2 05/31/2017 Pt Mef9242 Low Intensity - 1.5-2.0 05/31/2017 Pt Pkh4518 Mod intensity - 2.0-3.0 05/31/2017 Pt Fbh3227 Hi intensity - 3.0-4.0 05/31/2017 Pt Mlm7867 PT 32.2 seconds 05/02/2017 Pt Zpi3585 INR 3.1 05/02/2017 Pt Hqf8309 Low Intensity - 1.5-2.0 05/02/2017 Pt Ctf7219 Mod intensity - 2.0-3.0 05/02/2017 Pt Rpy8019 Hi intensity - 3.0-4.0 05/02/2017 Pt Lts9647 PT 26.8 seconds 03/28/2017 Pt Hkh5270 INR 2.5 03/28/2017 Pt Csg8923 Low Intensity - 1.5-2.0 03/28/2017 Pt Dla1587 Mod intensity - 2.0-3.0 03/28/2017 Pt Rkt4514 Hi intensity - 3.0-4.0 03/28/2017 Pt Fww3243 PT 26.8 seconds 02/22/2017 Pt Rrz7977 INR 2.5 02/22/2017 Pt Fqu6602 Low Intensity - 1.5-2.0 02/22/2017 Pt Egh7290 Mod intensity - 2.0-3.0 02/22/2017 Pt Xsa3710 Hi intensity - 3.0-4.0 02/22/2017 Pt Yna4183 PT 20.1 seconds 02/07/2017 Pt Jnj7130 INR 1.7 02/07/2017 Pt Qgg2403 Low Intensity - 1.5-2.0 02/07/2017 Pt Lof4625 Mod intensity - 2.0-3.0 02/07/2017 Pt Uli0813 Hi intensity - 3.0-4.0 02/07/2017 Culture Urine [id number] URINE CULTURE SEE NOTES 01/10/2017 Culture Urine [id number] Continued Results 01/10/2017 Urine Culture Ucult Complete >100,000 col/ml aerobic growth sent to ref lab 01/08/2017 Valproic Acid (Depakote) S 945089 VALPROIC ACID 20.3 ug/mL 01/08/2017 Comp Metabolic Fxv132 NA 142 mEq/L 01/07/2017 Comp Metabolic Vyl476 K 4.0 mEq/L 01/07/2017 Comp Metabolic Fap739 CL 105 mEq/L 01/07/2017 Comp Metabolic Azk876 CO2 24.0 mEq/L 01/07/2017 Comp Metabolic Dnq209 ANION GAP 17 01/07/2017 Comp Metabolic Bcm836 GLUCOSE 81 mg/dL 01/07/2017 Comp Metabolic Fox633 Creat 0.8 mg/dL 01/07/2017 Comp Metabolic Sjq772 eGFR 72 ml/min/1.73m2 01/07/2017 Comp Metabolic Eub328 BUN 12 mg/dL 01/07/2017 Comp Metabolic Nof650 B/C Ratio 15.0 Ratio 01/07/2017 Comp Metabolic Enx833 CALCIUM 9.0 mg/dL 01/07/2017 Comp Metabolic Ftq347 ALK PHOS 59 U/L 01/07/2017 Comp Metabolic Erh803 AST(SGOT) 18 U/L 01/07/2017 Comp Metabolic Ssp117 ALT(SGPT) 11 U/L 01/07/2017 Comp Metabolic Zjt873 BILI T 0.6 mg/dL 01/07/2017 Comp Metabolic Zzs490 ALBUMIN 3.6 g/dL 01/07/2017 Comp Metabolic Obe760 TPRO 6.7 g/dL 01/07/2017 Comp Metabolic Pts818 GLOB 3.1 g/dL 01/07/2017 Comp Metabolic Jgb361 A/G Ratio 1.2 Ratio 01/07/2017 Comp Metabolic Chm475 Osmo 282 mOsmo 01/07/2017 Pt Rqz0303 PT 19.5 seconds 01/07/2017 Pt Ywb9553 INR 1.7 01/07/2017 Pt Dto5593 Low Intensity - 1.5-2.0 01/07/2017 Pt Uwg7300 Mod intensity - 2.0-3.0 01/07/2017 Pt Xtk4544 Hi intensity - 3.0-4.0 01/07/2017 Tsh Ord6 [...] 98.0 fl 01/07/2017 Cbc With Differential Ord2 Benson% 10.5 % 01/07/2017 Cbc With Differential Ord2 MCH 32.0 pg 01/07/2017 Cbc With Differential Ord2 Eos% 2.4 % 01/07/2017 Cbc With Differential Ord2 MCHC 32.7 pg 01/07/2017 Cbc With Differential Ord2 Baso% 0.2 % 01/07/2017 Cbc With Differential Ord2 PLT 210 K/ul 01/07/2017 Cbc With Differential Ord2 Neut ABS# 3.32 K/ul 01/07/2017 Cbc With Differential Ord2 RDW 14.3 % 01/07/2017 Cbc With Differential Ord2 Lymph ABS# 0.97 K/ul 01/07/2017 Cbc With Differential Ord2 Benson ABS# 0.5 K/ul 01/07/2017 Cbc With Differential Ord2 Eos ABS# 0.1 K/ul 01/07/2017 Cbc With Differential Ord2 Baso ABS# 0.0 K/ul 01/07/2017 Pt Mft0431 PT 22.5 seconds 12/06/2016 Pt Zjn8037 INR 2.1 12/06/2016 Pt Dyt1533 Low Intensity - 1.5-2.0 12/06/2016 Pt Zqj0609 Mod intensity - 2.0-3.0 12/06/2016 Pt Gts6592 Hi intensity - 3.0-4.0 12/06/2016 Pt Tfo8139 PT 20.8 seconds 10/29/2016 Pt Cpu9745 INR 1.9 10/29/2016 Pt Fwo3031 Low Intensity - 1.5-2.0 10/29/2016 Pt Bbl7326 Mod intensity - 2.0-3.0 10/29/2016 Pt Lbj5617 Hi intensity - 3.0-4.0 10/29/2016 Pt Uuv0978 PT 21.9 seconds 09/24/2016 Pt Tew2923 INR 2.0 09/24/2016 Pt Xgn6516 Low Intensity - 1.5-2.0 09/24/2016 Pt Gcz5449 Mod intensity - 2.0-3.0 09/24/2016 Pt Zfv7330 Hi intensity - 3.0-4.0 09/24/2016 Pt Ekn6313 PT 21.0 seconds 09/10/2016 Pt Bug0397 INR 1.9 09/10/2016 Pt Jrf3997 Low Intensity - 1.5-2.0 09/10/2016 Pt Nqs1962 Mod intensity - 2.0-3.0 09/10/2016 Pt Jym6543 Hi intensity - 3.0-4.0 09/10/2016 Pt Vhy1312 PT 22.8 seconds 08/20/2016 Pt Lfy9478 INR 2.1 08/20/2016 Pt Roe2683 Low Intensity - 1.5-2.0 08/20/2016 Pt Fds8067 Mod intensity - 2.0-3.0 08/20/2016 Pt Ral4440 Hi intensity - 3.0-4.0 08/20/2016 Pt Xpu7664 PT 19.2 seconds 08/02/2016 Pt Ppa1472 INR 1.7 08/02/2016 Pt Mfc3721 Low Intensity - 1.5-2.0 08/02/2016 Pt Qpo7140 Mod intensity - 2.0-3.0 08/02/2016 Pt Zya0846 Hi intensity - 3.0-4.0 08/02/2016 Pt Owr2966 PT 31.2 seconds 07/12/2016 Pt Ymh3381 INR 3.2 07/12/2016 Pt Blz9955 Low Intensity - 1.5-2.0 07/12/2016 Pt Iub0328 Mod intensity - 2.0-3.0 07/12/2016 Pt Isy6957 Hi intensity - 3.0-4.0 07/12/2016 Pt Okr1538 PT 20.3 seconds 07/05/2016 Pt Hww2941 INR 1.8 07/05/2016 Pt Pvn6806 Low Intensity - 1.5-2.0 07/05/2016 Pt Qqt7766 Mod intensity - 2.0-3.0 07/05/2016 Pt Adj9178 Hi intensity - 3.0-4.0 07/05/2016 Pt Oun8334 PT 22.2 seconds 05/29/2016 Pt Zkt1917 INR 2.1 05/29/2016 Pt Lhg1319 Low Intensity - 1.5-2.0 05/29/2016 Pt Mvk4301 Mod intensity - 2.0-3.0 05/29/2016 Pt Cbu9644 Hi intensity - 3.0-4.0 05/29/2016 Cbc With Differential Ord2 WBC 4.98 K/ul [...] 32.5 pg 04/25/2016 Cbc With Differential Ord2 Benson% 12.4 % 04/25/2016 Cbc With Differential Ord2 [...] 1.29 K/ul 04/25/2016 Cbc With Differential Ord2 Benson ABS# 0.6 K/ul 04/25/2016 Cbc With Differential Ord2 Eos ABS# 0.1 K/ul 04/25/2016 Cbc With Differential Ord2 Baso ABS# 0.0 K/ul 04/25/2016 Pt Ptf0783 PT 21.9 seconds 04/25/2016 Pt Knp4413 INR 2.0 04/25/2016 Pt Fwo8452 Low Intensity - 1.5-2.0 04/25/2016 Pt Ozn9162 Mod intensity - 2.0-3.0 04/25/2016 Pt Rnj2966 Hi intensity - 3.0-4.0 04/25/2016 Tsh Ord6 hTSH II 3.38 uIU/mL 04/25/2016 Comp Metabolic Efl770 NA 138 mEq/L 04/25/2016 Comp Metabolic Nwh429 K 4.1 mEq/L 04/25/2016 Comp Metabolic Noa106 CL 105 mEq/L 04/25/2016 Comp Metabolic Tfy997 CO2 25.0 mEq/L 04/25/2016 Comp Metabolic Pmk387 ANION GAP 12 04/25/2016 Comp Metabolic Fgy223 GLUCOSE 89 mg/dL 04/25/2016 Comp Metabolic Qlj678 Creat 0.8 mg/dL 04/25/2016 Comp Metabolic Sfs158 eGFR 71 ml/min/1.73m2 04/25/2016 Comp Metabolic Tku781 BUN 14 mg/dL 04/25/2016 Comp Metabolic Hfc653 B/C Ratio 17.3 Ratio 04/25/2016 Comp Metabolic Kkv136 CALCIUM 9.0 mg/dL 04/25/2016 Comp Metabolic Lev127 ALK PHOS 63 U/L 04/25/2016 Comp Metabolic Vco166 AST(SGOT) 15 U/L 04/25/2016 Comp Metabolic Bcv809 ALT(SGPT) 9 U/L 04/25/2016 Comp Metabolic Vqc880 BILI T 0.4 mg/dL 04/25/2016 Comp Metabolic Jnd255 ALBUMIN 3.7 g/dL 04/25/2016 Comp Metabolic Rzh407 TPRO 6.4 g/dL 04/25/2016 Comp Metabolic Map081 GLOB 2.7 g/dL 04/25/2016 Comp Metabolic Xlh054 A/G Ratio 1.4 Ratio 04/25/2016 Comp Metabolic Rhs088 Osmo 276 mOsmo 04/25/2016 Valproic Acid Duu202 VALPROIC 17.0 ug/ml 04/25/2016 Pt Wdg0804 PT 24.4 seconds 03/27/2016 Pt Rzq7717 INR 2.3 03/27/2016 Pt Oft1662 Low Intensity - 1.5-2.0 03/27/2016 Pt Zbt8858 Mod intensity - 2.0-3.0 03/27/2016 Pt Lrm2620 Hi intensity - 3.0-4.0 03/27/2016 Pt Lnk5641 PT 22.7 seconds 02/24/2016 Pt Kas1246 INR 2.1 02/24/2016 Pt Inj7531 Low Intensity - 1.5-2.0 02/24/2016 Pt Hls0914 Mod intensity - 2.0-3.0 02/24/2016 Pt Zrk6978 Hi intensity - 3.0-4.0 02/24/2016 Pt Yzl2827 PT 24.2 seconds 02/10/2016 Pt Ffu9892 INR 2.3 02/10/2016 Pt Owa4736 Low Intensity - 1.5-2.0 02/10/2016 Pt Epa9138 Mod intensity - 2.0-3.0 02/10/2016 Pt Lpt1362 Hi intensity - 3.0-4.0 02/10/2016 Pt Ycx4009 PT 15.7 seconds 01/26/2016 Pt Ctm0285 INR 1.3 01/26/2016 Pt Tfq9498 Low Intensity - 1.5-2.0 01/26/2016 Pt Xdb2399 Mod intensity - 2.0-3.0 01/26/2016 Pt Tdm3208 Hi intensity - 3.0-4.0 01/26/2016 Pt Cwi8190 PT 22.0 seconds 01/02/2016 Pt Mdq8176 INR 2.0 01/02/2016 Pt Sgr7253 Low Intensity - 1.5-2.0 01/02/2016 Pt Gze2145 Mod intensity - 2.0-3.0 01/02/2016 Pt Kym5249 Hi intensity - 3.0-4.0 01/02/2016 Pt Axm5752 PT 21.9 seconds 11/30/2015 Pt Znq8222 INR 2.0 11/30/2015 Pt Qee5703 Low Intensity - 1.5-2.0 11/30/2015 Pt Ntu0179 Mod intensity - 2.0-3.0 11/30/2015 Pt Jdx2672 Hi intensity - 3.0-4.0 11/30/2015 Pt Mgk5994 PT 20.0 seconds 10/28/2015 Pt Owb5158 INR 1.8 10/28/2015 Pt Jfh8801 Low Intensity - 1.5-2.0 10/28/2015 Pt Msg9150 Mod intensity - 2.0-3.0 10/28/2015 Pt Ryk5468 Hi intensity - 3.0-4.0 10/28/2015 Cbc With Differential Ord2 WBC 5.50 K/ul 09/19/2015 Cbc With Differential Ord2 RBC 4.48 M/ul 09/19/2015 Cbc With Differential Ord2 HGB 14.4 g/dl 09/19/2015 Cbc With Differential Ord2 HCT 42.6 % 09/19/2015 Cbc With Differential Ord2 Neut% 69.0 % 09/19/2015 Cbc With Differential Ord2 Lymph% 17.8 % 09/19/2015 Cbc With Differential Ord2 MCV 95.1 fl 09/19/2015 Cbc With Differential Ord2 Benson% 11.4 % 09/19/2015 Cbc With Differential Ord2 MCH 32.2 pg 09/19/2015 Cbc With Differential Ord2 Eos% 1.4 % 09/19/2015 Cbc With Differential Ord2 MCHC 33.9 pg 09/19/2015 Cbc With Differential Ord2 PLT 200 K/ul 09/19/2015 Cbc With Differential Ord2 Baso% 0.4 % 09/19/2015 Cbc With Differential Ord2 RDW 13.7 % 09/19/2015 Cbc With Differential Ord2 Neut ABS# 3.45 K/ul 09/19/2015 Cbc With Differential Ord2 Lymph ABS# 0.89 K/ul 09/19/2015 Cbc With Differential Ord2 Benson ABS# 0.6 K/ul 09/19/2015 Cbc With Differential Ord2 Eos ABS# 0.1 K/ul 09/19/2015 Cbc With Differential Ord2 Baso ABS# 0.0 K/ul 09/19/2015 Cbc With Differential Ord2 New Analyzer Notice Please note new ref ranges starting 06-29-2015 due to implemntation of new five part differential hematolgy analyzer. 09/19/2015 Pt Iry6352 PT 28.3 seconds 09/19/2015 Pt Bbc7837 INR 2.8 09/19/2015 Pt Dbk6836 Low Intensity - 1.5-2.0 09/19/2015 Pt Pby2727 Mod intensity - 2.0-3.0 09/19/2015 Pt Ggs5240 Hi intensity - 3.0-4.0 09/19/2015 Pt Vhu6162 PT 22.5 seconds 08/12/2015 Pt Dde3796 INR 2.1 08/12/2015 Pt Jia0002 Low Intensity - 1.5-2.0 08/12/2015 Pt Ihp3443 Mod intensity - 2.0-3.0 08/12/2015 Pt Qdx1926 Hi intensity - 3.0-4.0 08/12/2015 Pt Yfv4905 PT 34.1 seconds 07/29/2015 Pt Ceb4950 INR 3.5 07/29/2015 Pt Rhq4859 Low Intensity - 1.5-2.0 07/29/2015 Pt Thd9428 Mod intensity - 2.0-3.0 07/29/2015 Pt Iao3231 Hi intensity - 3.0-4.0 07/29/2015 Tsh Ord6 hTSH II 2.48 uIU/mL 06/29/2015 Pt Kru4122 PT 14.2 seconds 06/29/2015 Pt Bvc3903 INR 1.1 06/29/2015 Pt Xgf8291 Low Intensity - 1.5-2.0 06/29/2015 Pt Zie0017 Mod intensity - 2.0-3.0 06/29/2015 Pt Mpk7994 Hi intensity - 3.0-4.0 06/29/2015 Lipid Ord30 CHOL 205 mg/dL 06/29/2015 Lipid Ord30 HDL 59.0 mg/dl 06/29/2015 Lipid Ord30 TRIG 118 mg/dL 06/29/2015 Lipid Ord30 LDL 122 mg/dL 06/29/2015 Lipid Ord30 C/HDL 3.5 Ratio 06/29/2015 CBC With Differential * WBC 4.8 [...] With Differential * RDW 13.9 % 06/29/2015 Comp Metabolic Ndr462 NA 139 mEq/L 06/29/2015 Comp Metabolic Mwp031 K 3.8 mEq/L 06/29/2015 Comp Metabolic Jck507 CL 105 mEq/L 06/29/2015 Comp Metabolic Eol563 CO2 21.0 mEq/L 06/29/2015 Comp Metabolic Mvi836 ANION GAP 17 06/29/2015 Comp Metabolic Elp727 GLUCOSE 78 mg/dL 06/29/2015 Comp Metabolic Xqt609 Creat 0.7 mg/dL 06/29/2015 Comp Metabolic Xyp683 eGFR 86 ml/min/1.73m2 06/29/2015 Comp Metabolic Xfi686 BUN 7 mg/dL 06/29/2015 Comp Metabolic Eea868 B/C Ratio 10.1 Ratio 06/29/2015 Comp Metabolic Nji865 CALCIUM 9.3 mg/dL 06/29/2015 Comp Metabolic Nkt860 ALK PHOS 84 U/L 06/29/2015 Comp Metabolic Nck643 AST(SGOT) 17 U/L 06/29/2015 Comp Metabolic Ogv650 ALT(SGPT) 10 U/L 06/29/2015 Comp Metabolic Arh389 BILI T 1.0 mg/dL 06/29/2015 Comp Metabolic Wvj995 ALBUMIN 4.1 g/dL 06/29/2015 Comp Metabolic Yao352 TPRO 7.0 g/dL 06/29/2015 Comp Metabolic Umd086 GLOB 2.9 g/dL 06/29/2015 Comp Metabolic Aoi496 A/G Ratio 1.4 Ratio 06/29/2015 Comp Metabolic Hxj965 Osmo 274 mOsmo 06/29/2015 Pt Clz5353 PT 25.9 seconds 05/16/2015 Pt Tyb2299 INR 2.5 05/16/2015 Pt Tns2929 Low Intensity - 1.5-2.0 05/16/2015 Pt Msp3857 Mod intensity - 2.0-3.0 05/16/2015 Pt Hzb6027 Hi intensity - 3.0-4.0 05/16/2015 Pt Srd7937 PT 28.2 seconds 04/19/2015 Pt Btq3437 INR 2.7 04/19/2015 Pt Fjk6923 Low Intensity - 1.5-2.0 04/19/2015 Pt Ssa6822 Mod intensity - 2.0-3.0 04/19/2015 Pt Wmb4651 Hi intensity - 3.0-4.0 04/19/2015 Pt Gef0552 PT 29.7 seconds 02/17/2015 Pt Rty9787 INR 2.9 02/17/2015 Pt Msp0408 Low Intensity - 1.5-2.0 02/17/2015 Pt Tdi3874 Mod intensity - 2.0-3.0 02/17/2015 Pt Ztc2646 Hi intensity - 3.0-4.0 02/17/2015 Comp Metabolic Qrz322 NA 136 mEq/L 02/07/2015 Comp Metabolic Ovj830 K 4.2 mEq/L 02/07/2015 Comp Metabolic Kfv203 CL 105 mEq/L 02/07/2015 Comp Metabolic Dae841 CO2 23.0 mEq/L 02/07/2015 Comp Metabolic Hlj406 ANION GAP 12 02/07/2015 Comp Metabolic Dow984 GLUCOSE 129 mg/dL 02/07/2015 Comp Metabolic Hkz146 Creat 0.9 mg/dL 02/07/2015 Comp Metabolic Klo756 eGFR 67 ml/min/1.73m2 02/07/2015 Comp Metabolic Tuj086 BUN 13 mg/dL 02/07/2015 Comp Metabolic Cao485 B/C Ratio 15.1 Ratio 02/07/2015 Comp Metabolic Kmk382 CALCIUM 9.3 mg/dL 02/07/2015 Comp Metabolic Zcn088 ALK PHOS 79 U/L 02/07/2015 Comp Metabolic Gcg151 AST(SGOT) 16 U/L 02/07/2015 Comp Metabolic Gpj857 ALT(SGPT) 10 U/L 02/07/2015 Comp Metabolic Mjb457 BILI T 0.5 mg/dL 02/07/2015 Comp Metabolic Ehn073 ALBUMIN 4.0 g/dL 02/07/2015 Comp Metabolic Nur482 TPRO 6.9 g/dL 02/07/2015 Comp Metabolic Oxn784 GLOB 2.9 g/dL 02/07/2015 Comp Metabolic Ffn010 A/G Ratio 1.4 Ratio 02/07/2015 Comp Metabolic Myj408 Osmo 274 mOsmo 02/07/2015 Tsh Ord6 hTSH II 2.36 uIU/mL 02/07/2015 Pt Lzo3969 PT 26.8 seconds 02/07/2015 Pt Xcu0999 INR 2.6 02/07/2015 Pt Hjj1823 Low Intensity - 1.5-2.0 02/07/2015 Pt Qqz6325 Mod intensity - 2.0-3.0 02/07/2015 Pt Enb6031 Hi intensity - 3.0-4.0 02/07/2015 Cbc With [...] Differential Ord2 RDW 14.5 % 02/07/2015 Pt Lwm4551 PT 27.9 seconds 02/04/2015 Pt Sks5783 INR 2.7 02/04/2015 Pt Bts3872 Low Intensity - 1.5-2.0 02/04/2015 Pt Uak7212 Mod intensity - 2.0-3.0 02/04/2015 Pt Oha1762 Hi intensity - 3.0-4.0 02/04/2015 Pt Wja6346 PT 17.2 seconds 01/25/2015 Pt Xfc8834 INR 1.4 01/25/2015 Pt Tup0347 Low Intensity - 1.5-2.0 01/25/2015 Pt Ryy8485 Mod intensity - 2.0-3.0 01/25/2015 Pt Egx8923 Hi intensity - 3.0-4.0 01/25/2015 Pt Oac9621 PT 20.7 seconds 12/23/2014 Pt Skq8860 INR 1.8 12/23/2014 Pt Urs1973 Low Intensity - 1.5-2.0 12/23/2014 Pt Kpy6993 Mod intensity - 2.0-3.0 12/23/2014 Pt Oah8275 Hi intensity - 3.0-4.0 12/23/2014 PT/MC [id number] PRO TIME 24.9 SEC 08/27/2012 PT/MC [id number] INR MCMC 2.2 08/27/2012 PT/MC [id number] PRO TIME 31.1 SEC 05/13/2012 PT/MC 1251003 INR MCMC 3.0 05/13/2012 CHEM 14 8686135 AST 16 U/L 04/30/2012 CHEM 14 0613157 ALT 9 IU/L 04/30/2012 CHEM 14 7566091 BUN 7 MG/DL 04/30/2012 CHEM 14 6787008 ALBUMIN 4.0 GM/DL 04/30/2012 CHEM 14 2501311 CHLORIDE 107 MMOL/L 04/30/2012 CHEM 14 6549578 BILI TOT 0.7 MG/DL 04/30/2012 CHEM 14 4904121 ALK PHOS 68 U/L 04/30/2012 CHEM 14 8059221 SODIUM 142 MMOL/L 04/30/2012 CHEM 14 0307170 CREATININE 0.80 MG/DL 04/30/2012 CHEM 14 7777417 CALCIUM 9.5 MG/DL 04/30/2012 CHEM 14 3419453 POTASSIUM 3.7 MMOL/L 04/30/2012 CHEM 14 6609278 PROT TOT 7.1 GM/DL 04/30/2012 CHEM 14 1544026 GLUCOSE 88 MG/DL 04/30/2012 CHEM 14 1154347 BICARB 27 MMOL/L 04/30/2012 CHEM 14 3773410 ANION GAP 8 MEQ/L 04/30/2012 CBC 1317451 WBC 4.0 10e9/L 04/30/2012 CBC 2601000 RBC 4.94 10e12/L 04/30/2012 CBC 3616601 HGB 15.7 g/dL 04/30/2012 CBC 1435729 HCT DET 47.5 % 04/30/2012 CBC 7096233 MCV 96.2 fL 04/30/2012 CBC 5959923 MCH 31.8 pg 04/30/2012 CBC 8822313 MCHC 33.1 g/dL 04/30/2012 CBC 5089924 PLT 226 10e9/L 04/30/2012 CBC 6775865 MPV 10.9 fL 04/30/2012 CBC 6476268 KOBY % 64.8 % 04/30/2012 CBC 8788616 LY % 22.1 % 04/30/2012 CBC 6771199 MON % 9.5 % 04/30/2012 CBC 9908482 EOS % 3.3 % 04/30/2012 CBC 6679057 BASO % 0.3 % 04/30/2012 CBC 4328156 RDW 13.5 % 04/30/2012 CBC 8771697 ABS KOBY 2.59 10e9/L 04/30/2012 CBC 6507654 ABS LYMPH 0.88 10e9/L 04/30/2012 CBC 5425151 ABS MONO 0.38 10e9/L 04/30/2012 CBC 8332061 ABS EOS 0.13 10e9/L 04/30/2012 CBC 1719100 ABS BASO 0.01 10e9/L 04/30/2012 CBC 1469122 RDW-SD 46.5 fL 04/30/2012 TSH 2091547 TSH 3.019 uIU/ML 04/30/2012 LIPID GRP HDL TEST 47 MG/DL 04/30/2012 LIPID GRP TRIG 131 MG/DL 04/30/2012 LIPID GRP TEST LDL 145 MG/DL 04/30/2012 LIPID GRP CHOL 218 MG/DL 04/30/2012 LIPID GRP RCHOL/HDL 4.64 RATIO 04/30/2012 GFR CALC 8398921 GFR AA >60 ML/MIN 04/30/2012 GFR CALC 8082589 GFR NON-AA >60 ML/MIN 04/30/2012 PT/MC 4075080 PRO TIME 18.5 SEC 04/30/2012 PT/MC 9755033 INR MCMC 1.5 04/30/2012 Review of Systems System Result Effective [...] clear 02/07/2015 None Full Exam - General 1995 Ears/Nose/Throat [...] rate 12/01/2013 None Full Exam - General 1995 Cardiovascular extremities Edema present: non-pitting 12/01/2013 None [...] bilateral upper arms Full Exam - General 1995 Psychiatric orientation/consciousness Overall: oriented to person, place and time 08/27/2013 None Full Exam - General 1995 Constitutional general appearance Development: well developed 05/20/2013 None Full Exam - General 1995 Constitutional general appearance Development: appears stated age 1205/20/2013 None Full Exam - General 1994 Constitutional general appearance Development: appears older than stated age 1205/20/2013 None Full Exam - General 1995 Constitutional general appearance Hygiene/Attention to Grooming: good [...] age 1104/30/2013 None Full Exam - General 1995 Constitutional general appearance Development: appears stated age 1104/30/2013 None Full Exam - General 1994 Constitutional general appearance Development: well developed 04/30/2013 None Full Exam - General 1994 Constitutional general appearance Hygiene/Attention to Grooming: good hygiene 04/30/2013 None Full Exam - General 1995 Eyes conjunctiva /eyelids Overall: conjunctiva clear 04/30/2013 [...] 04/30/2013 None Full Exam - General 1994 Ears/Nose/Throat oral cavity/pharynx/larynx Overall: oropharyngeal mucosa clear 04/30/2013 None Full Exam - General 1994 Ears/Nose/Throat oral cavity/pharynx/larynx Overall: no masses 04/30/2013 None Full Exam - General 1994 Ears/Nose/Throat [...] alert 04/30/2013 None Full Exam - General 1995 Constitutional general appearance Development: well developed 04/16/2013 None Full Exam - General 1995 Constitutional general appearance Development: appears stated age 1004/16/2013 None Full Exam - General 1995 Constitutional general appearance Development: appears older than stated age 1004/16/2013 None Full Exam - General 1995 Constitutional general appearance Hygiene/Attention to Grooming: good hygiene 04/16/2013 None Full Exam - General 1995 Eyes conjunctiva /eyelids Overall: conjunctiva clear 04/16/2013 None Full Exam - General 1995 Eyes conjunctiva /eyelids Overall: eyelids normal 04/16/2013 [...] distress 03/10/2013 None Full Exam - General 1995 Eyes pupils and irises Overall: pupils equal, round, reactive to light and accomodation 03/10/2013 None Full Exam - General 1995 Eyes conjunctiva /eyelids Overall: conjunctiva clear 03/10/2013 None Full Exam - General 1995 Eyes conjunctiva /eyelids Overall: eyelids normal 03/10/2013 None Full Exam - General 1995 Eyes conjunctiva /eyelids Overall: cornea clear 03/10/2013 None Full Exam - General 1995 [...] Procedure Codes Date DESTRUCT PREMALG LESION CPT-4: 64864 11/07/2016 ADMIN INFLUENZA VIRUS VAC CPT-4: G0008 03/25/2015 FLU VACC 4 CHANTELLE 3 YRS PLUS IM Formatting Model/CDA Sections, Assigned to SNOMED CT: 74789051 CPT-4: 05820Xwvflod 03/25/2015 ADMIN INFLUENZA VIRUS VAC Assigned to CPT-4: U0054Ckanxgk 04/23/2014 FLU VAC NO PRSV 4 CHANTELLE 3 YRS+ CPT-4: 49446 04/23/2014 TRIAMCINOLONE ACET INJ NOS CPT-4: J3301 05/20/2013 THER/PROPH/DIAG INJ SC/IM CPT-4: 35556 05/20/2013 PRESCRIP TRANSMIT VIA ERX SY CPT-4: G8553 05/20/2013 URINALYSIS NONAUTO W/O SCOPE CPT-4: 91619 04/30/2013 THER/PROPH/DIAG INJ SC/IM CPT-4: 99699 04/16/2013 ROCEPHIN, PER 250 MG CPT-4: J0696 04/16/2013 PRESCRIP TRANSMIT VIA ERX SY CPT-4: G8553 04/16/2013 ADMIN INFLUENZA VIRUS VAC CPT-4: G0008 03/10/2013 FLULAVAL VACC, 3 YRS & >, IM CPT-4: Q2036 03/10/2013 PRESCRIP TRANSMIT VIA ERX SY CPT-4: G8553 12/02/2012 TRIAMCINOLONE ACET INJ NOS CPT-4: J3301 10/08/2012 INJ TRIGGER POINT 1/2 MUSCL CPT-4: 85406 10/08/2012 ROUTINE VENIPUNCTURE CPT-4: 12904 08/27/2012 DRAIN/INJECT JOINT/BURSA CPT-4: 81641 07/09/2012 TRIAMCINOLONE ACET INJ NOS CPT-4: J3301 07/09/2012 ROUTINE VENIPUNCTURE CPT-4: 64129 05/13/2012 ROUTINE VENIPUNCTURE CPT-4: 61291 04/30/2012 PRESCRIP TRANSMIT VIA ERX SY CPT-4: G8553 04/28/2012 Vital Signs Date Vital 02/14/2018 Blood Pressure 1: 130/78 Code : 8480-6 BMI: 24.6 Code : 34543-3 Heart Rate 1 : 64 bpm Height: 5'1" SpO2: 96% Weight: 130 lbs 12/09/2017 BMI: 24.0 Code: 81694-0 Height: 5'1" Weight: 127 lbs 11/14/2017 Blood Pressure 1: 140/74 Code : 8480-6 Heart Rate 1: 78 bpm SpO2: 94% Weight: 127 lbs 08/13/2017 Blood Pressure 1: 120/76 Code : 8480-6 BMI: 24.9 Code : 87260-9 Heart Rate 1 : 76 bpm Height: 5'1" SpO2: 96% Weight: 132 lbs 05/21/2017 Blood Pressure 1: 132/80 Code : 8480-6 BMI: 26.1 Code : 67638-2 Heart Rate 1 : 61 bpm Height: 5'1" SpO2: 92% Weight: 138 lbs 05/07/2017 Blood Pressure 1: 128/70 Code : 8480-6 BMI: 25.9 Code : 81337-2 Heart Rate 1 : 72 bpm Height: 5'1" SpO2: 96% Weight: 137 lbs 01/08/2017 Blood Pressure 1: 136/82 Code : 8480-6 BMI: 25.5 Code : 50511-3 Heart Rate 1 : 75 bpm Height: 5'1" SpO2: 96% Weight: 135 lbs 01/07/2017 Blood Pressure 1: 142/86 Code : 8480-6 BMI: 25.5 Code : 94760-7 Heart Rate 1 : 75 bpm Height: 5'1" SpO2: 95% Weight: 135 lbs 11/07/2016 Blood Pressure 1: 120/80 Code : 8480-6 BMI: 25.5 Code : 31002-4 Heart Rate 1 : 83 bpm Height: 5'1" SpO2: 97% Weight: 135 lbs 07/26/2016 Blood Pressure 1: 140/80 Code : 8480-6 BMI: 27.0 Code : 86348-1 Heart Rate 1 : 68 bpm Height: 5'1" SpO2: 94% Weight: 143 lbs 04/25/2016 Blood Pressure 1: 128/82 Code : 8480-6 BMI: 28.2 Code : 63173-1 Heart Rate 1 : 71 bpm Height: 5'1" SpO2: 98% Weight: 149 lbs 10/04/2015 Blood Pressure 1: 140/80 Code : 8480-6 BMI: 27.8 Code : 07896-8 Heart Rate 1 : 77 bpm Height: 5'1" SpO2: 96% Weight: 147 lbs 06/29/2015 Blood Pressure 1: 134/70 Code : 8480-6 BMI: 26.8 Code : 18686-9 Heart Rate 1 : 68 bpm Height: 5'1" SpO2: 95% Weight: 142 lbs 02/17/2015 Blood Pressure 1: 128/80 Code : 8480-6 Heart Rate 1: 85 bpm Height: 5'1" SpO2: 96% Weight: 02/07/2015 Blood Pressure 1: 130/68 Code : 8480-6 BMI: 28.7 Code : 45460-3 Heart Rate 1 : 80 bpm Height: 5'1" SpO2: 95% Weight: 152 lbs 03/30/2014 Blood Pressure 1: 142/80 Code : 8480-6 BMI: 27.8 Code : 08266-0 Heart Rate 1 : 83 bpm Height: 5'1" SpO2: 95% Weight: 147 lbs 12/24/2013 Blood Pressure 1: 120/80 Code : 8480-6 BMI: 27.8 Code : 82307-9 Heart Rate 1 : 76 bpm Height: 5'1" Weight: 147 lbs 12/01/2013 Blood Pressure 1: 138/82 Code : 8480-6 BMI: 28.0 Code : 69809-0 Heart Rate 1 : 76 bpm Height: 5'1" SpO2: 91% Weight: 148 lbs 11/27/2013 Blood Pressure 1: 140/90 Code : 8480-6 BMI: 28.0 Code : 84827-3 Heart Rate 1 : 76 bpm Height: 5'1" SpO2: 95% Weight: 148 lbs 08/27/2013 Blood Pressure 1: 132/76 Code : 8480-6 BMI: 26.5 Code : 82166-5 Heart Rate 1 : 72 bpm Height: 5'1" Weight: 140 lbs 05/20/2013 Blood Pressure 1: 122/80 Code : 8480-6 BMI: 26.8 Code : 69378-9 Heart Rate 1 : 80 bpm Height: 5'1" SpO2: 98% Temperature: 37.3 (C) / 99.2 (F) Weight: 142 lbs 04/30/2013 Blood Pressure 1: 140/80 Code : 8480-6 BMI: 27.0 Code : 30911-5 Heart Rate 1 : 73 bpm Height: 5'1" SpO2: 93% Temperature: 37.3 (C) / 99.1 (F) Weight: 143 lbs 04/16/2013 Blood Pressure 1: 100/64 Code : 8480-6 BMI: 27.2 Code : 71659-8 Heart Rate 1 : 80 bpm Height: 5'1" SpO2: 97% Temperature: 37.4 (C) / 99.3 (F) Weight: 144 lbs 03/10/2013 Blood Pressure 1: 132/82 Code : 8480-6 BMI: 27.2 Code : 49751-7 Heart Rate 1 : 80 bpm Height: 5'1" Weight: 144 lbs 12/08/2012 Blood Pressure 1: 144/80 Code : 8480-6 Heart Rate 1: 76 bpm Weight: 12/02/2012 Blood Pressure 1: 118/66 Code : 8480-6 BMI: 27.8 Code : 12771-9 Heart Rate 1 : 88 bpm Height: 5'1" Weight: 147 lbs 10/08/2012 Blood Pressure 1: 116/64 Code : 8480-6 BMI: 27.8 Code : 33449-1 Heart Rate 1 : 80 bpm Height: 5'1" Weight: 147 lbs 08/27/2012 Blood Pressure 1: 122/78 Code : 8480-6 BMI: 28.3 Code : 55992-6 Heart Rate 1 : 84 bpm Height: 5'1" Weight: 150 lbs 07/09/2012 Blood Pressure 1: 136/88 Code : 8480-6 Heart Rate 1: 84 bpm Weight: 150 lbs 05/19/2012 Blood Pressure 1: 124/74 Code : 8480-6 Heart Rate 1: 72 bpm Respiratory Rate : 16 bpm Weight: 152 lbs 04/28/2012 Blood Pressure 1: 130/80 Code : 8480-6 BMI: 29.1 Code : 61524-3 Heart Rate 1 : 56 bpm Height: [...] Directive data Encounters Encounter Performer Location Codes ([id number]) [id number] EST. 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 CPT-4: 31336 02/14/2018 ([id number]) Miscellaneous no charge Diagnosis: Abnormal weight loss[ICD10: R63.4] Sarah Gillis MD, [facility] CPT-4: 35340 12/09/2017 [id number] EST. 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 CPT-4: 53602 11/14/2017 [id number] EST. 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 CPT-4 : 84095 08/13/2017 [id number] EST. 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 CPT-4: 91400 05/21/2017 [id number] EST. 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 CPT-4: 29435 05/07/2017 ([id number]) 09853 EST. PATIENT, LEVEL IV Diagnosis: Essential (primary) hypertension[ICD10: I10] Diagnosis: Urinary tract infection, site not specified[ICD10: N39.0] Diagnosis: Mixed hyperlipidemia[ICD10: E78.2] Sarah Gillis MD, [facility] CPT-4: 17117 01/08/2017 [id number] EST. 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 CPT-4: 95408 01/07/2017 ([id number]) 72855 EST. PATIENT, LEVEL IV Diagnosis: Essential (primary) hypertension[ICD10: I10] Diagnosis: Mixed hyperlipidemia[ICD10: E78.2] Diagnosis: Actinic keratosis[ICD10: L57.0] Sarah Gillis MD, [facility] CPT- 4: 52458 11/07/2016 ([id number]) 89687 EST. PATIENT, LEVEL IV Diagnosis: Essential (primary) hypertension[ICD10: I10] Diagnosis: Mixed hyperlipidemia[ICD10: E78.2] Sarah Gillis MD, [facility] CPT-4: 77172 07/26/2016 ([id number]) 76946 EST. 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 CPT-4: 45704 04/25/2016 ([id number]) 23056 EST. PATIENT, LEVEL IV Diagnosis: Essential (primary) hypertension[ICD10: I10] Diagnosis: Cervicalgia[ICD10: M54.2] Diagnosis: Cervical disc disorder, unspecified, unspecified cervical region[ ICD10: M50.90] Sarah Gillis MD, [facility] CPT-4: 96088 10/04/2015 ([id number]) 49639 EST. PATIENT, LEVEL IV Diagnosis: Encounter for therapeutic drug level monitoring[ICD10: Z51.81] Diagnosis: Mixed hyperlipidemia[ICD10: E78.2] Diagnosis: Essential (primary) hypertension[ICD10: I10] Diagnosis: Localized edema[ICD10: R60.0] Sarah Gillis MD, [facility] CPT- 4: 78458 06/29/2015 ([id number]) 39524 EST. PATIENT, LEVEL IV Diagnosis: ESSENTIAL HYPERTENSION[ICD9: 401.9] Diagnosis: Osteoarthritis[ICD9: 715.90] Diagnosis: Left hip pain[ICD9: 719.45] Diagnosis: EDEMA[ICD9: 782.3] Diagnosis: ENCNTR LONG-ANTICOAG USE[ICD9: V58.61] Sarah Gillis MD, [facility] CPT-4: 89977 02/17/2015 ([id number]) 23688 EST. PATIENT, LEVEL IV Diagnosis: ESSENTIAL HYPERTENSION[ICD9: 401.9] Diagnosis: Osteoarthritis[ICD9: 715.90] Diagnosis: EDEMA[ICD9: 782.3] Diagnosis: ENCNTR LONG-ANTICOAG USE[ICD9: V58.61] Diagnosis: Left hip pain[ICD9: 719.45] Katy Gillis MD, [facility] CPT-4: 04881 02/07/2015 ([id number]) 96615 EST. PATIENT, LEVEL IV Diagnosis: ESSENTIAL HYPERTENSION[ICD9: 401.9] Diagnosis: Osteoarthritis[ICD9: 715.90] Diagnosis: Hip pain[ICD9: 719.45] Sarah Gillis MD, [facility] CPT-4: 68366 03/30/2014 ([id number]) 30551 EST. PATIENT, LEVEL III Diagnosis: ESSENTIAL HYPERTENSION[ICD9: 401.9] Diagnosis: Anticoagulant long-term use[ICD9: V58.61] Diagnosis: SCIATICA[ICD9: 724.3] Sarah Gillis MD, [facility] CPT-4: 88967 12/24/2013 ([id number]) 56072 EST. PATIENT, LEVEL III Diagnosis: Sacroiliitis[ICD9: 720.2] Diagnosis: SCIATICA[ICD9: 724.3] Sarah Gillis MD, [facility] CPT-4: 81649 12/01/2013 ([id number]) 46559 EST. PATIENT, LEVEL III Diagnosis: EDEMA[ICD9: 782.3] Diagnosis: LONG-TERM USE ANTICOAGUL[ICD9: V58.61] Sarah Gillis MD [facility] CPT-4: 37148 11/27/2013 ([id number]) 68282 EST. PATIENT, LEVEL III Diagnosis: ESSENTIAL HYPERTENSION[SNOMED: [id number]] CARLY Edwards MD CPT-4: 88427 08/27/2013 ([id number]) 97113 EST. PATIENT, LEVEL III Diagnosis: Acute bronchitis[ICD9: 466.0] Diagnosis: COUGH[ICD9: 786.2] Sarah Gillis MD [facility] CPT-4: 31787 05/20/2013 ([id number]) 88388 EST. PATIENT, LEVEL III Diagnosis: ACUTE BRONCHITIS[ICD9: 466.0] Diagnosis: Memory loss[ICD9: 780.93] Sarah Gillis MD [facility] CPT-4: 14959 04/30/2013 ([id number]) 68967 EST. PATIENT, LEVEL III Diagnosis: ACUTE BRONCHITIS[ICD9: 466.0] Diagnosis: Cough[ICD9: 786.2] Sarah Gillis MD ST. [facility] CPT-4: 97566 04/16/2013 ([id number]) 76242 EST. PATIENT, LEVEL III Diagnosis: ESSENTIAL HYPERTENSION[SNOMED: 00936438] Sarah Gillis MD [facility] CPT-4: 28286 03/10/2013 ([id number]) Miscellaneous no charge Diagnosis: BLISTER FOOT/TOE[ICD9: 917.2] Sarah Gillis MD [facility] CPT- 4: 01651 12/08/2012 ([id number]) 37084 EST. PATIENT, LEVEL III Diagnosis: BLISTER FOOT/TOE[ICD9: 917.2] Diagnosis: CELLULITIS OF FOOT[ICD9: 682.7] Diagnosis: Osteoarthritis[ICD9: 715.90] Sarah Gillis MD [facility] CPT- 4: 71644 12/02/2012 ([id number]) 47108 EST. PATIENT, LEVEL III Diagnosis: ESSENTIAL HYPERTENSION[SNOMED: 60786653] Sarah Gillis MD [facility] CPT-4: 14710 10/08/2012 ([id number]) 70049 EST. 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 PATIENT, LEVEL III Diagnosis: ESSENTIAL HYPERTENSION[SNOMED: 26659006] Diagnosis: Sacroiliitis[ICD9: 720.2] [facility] CPT-4: 90454 07/09/2012 ([id number]) 56088 EST. 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 11/14/2017 Appointment: [phone] ([facility]) [facility] 11/14/2017 Patient Education: Patient Medication Summary Completed [...] effectiveness. 08/13/2017 Appointment: [phone] (30 min) Complex 08/13/2017 Patient Education: Patient [...] effectiveness. 05/21/2017 Appointment: Mary Gonzalez WPtel: [phone] [facility] (30 min) Complex 05/21/2017 Patient Education: Patient [...] effectiveness. 05/07/2017 Appointment: [phone] [place] (30 min) Complex 05/07/2017 Patient Education: Patient Medication Summary Completed 05/07/2017 Appointment: Sarah Gillis WPtel: [facility][note 3]7 [facility] (15 min) Moderate 02/05/2017 Visit Plan: [...] weeks 01/08/2017 Appointment: Sarah Gillis WPtel: [phone] [facility] (15 min) Moderate 01/08/2017 Patient Education: [...] for effectiveness. 01/07/2017 Appointment: Mary Gonzalez WPtel: [facility][note 3]6 [facility] (10 min) Simple 01/07/2017 Patient Education: Patient [...] to medications. 11/07/2016 Appointment: Sarah Gillis WPtel: [phone] [facility] (15 min) Moderate 11/07/2016 Patient Education: Patient Medication Summary Completed 11/07/2016 Appointment: Sarah Gillis WPtel: [phone] [facility] (15 min) Moderate 10/24/2016 Visit Plan: [...] to medications. 07/26/2016 App[facility]ment: [phone] [place] (15 min) Moderate 07/26/2016 Patient Education: [...] supportive care. 04/25/2016 Appointment: Sarah [phone] [place] (15 min) Moderate 04/25/2016 Patient Education: Patient Medication Summary Completed 04/25/2016 Appointment: [phone] (30 min) Complex 04/03/2016 Visit Plan: Hypertension [...] Summary Completed 10/04/2015 Appointment: Sarah Gillis WPtel: [phone] [facility] (30 min) Complex 09/28/2015 Patient Education: [...] symptoms. 06/29/2015 Appointment: [phone] (30 min) Complex 06/29/2015 Patient Education: Patient [...] Hypertension Completed 02/07/2015 Appointment: Sarah Gillis WPtel: [facility][note 3]8 [facility] Follow up 06/28/2014 Appointment: Injection 04/23/2014 Patient [...] TIMES DAILY. 03/30/2014 Appointment: Sarah Gillis WPtel: [facility][note 3]9 [facility] Follow up 03/30/2014 Patient Education: Patient [...] at home. 12/24/2013 Appointment: Sarah Gillis WPtel: [facility][note 3]9 [facility] Follow up 12/24/2013 Patient Education: Patient [...] and 3.5. 11/27/2013 Appointment: Katy Shore WPtel: [address] [place] [address] Other 11/27/2013 Patient Education: Patient Medication Summary Completed 11/27/2013 Visit Plan: Hypertension - well controlled - continue with current medications, continue with no added salt diet. Pt has been encouraged to exercise daily. The pt has been advised to call the office if there are any acute concerns about change in blood pressure readings at home. 08/27/2013 Appointment: Sarah Gillis WPtel: [address] [place] [address] Follow up 08/27/2013 Patient Education: Patient Medication [...] of inflammation 05/20/2013 Appointment: Sarah Gillis WPtel: [facility][note 3][address] Sick 05/20/2013 Patient Education: Patient Medication Summary [...] at home. 03/10/2013 Appointment: Sarah Gillis WPtel: [address] [place], [place] [phone] Follow up 03/10/2013 Patient Education: Patient Medication Summary Completed 03/10/2013 Patient Education: Hypertension Completed 03/10/2013 Appointment: Sarah Gillis WPtel: [address] [place], [place] [phone] Follow up 12/17/2012 Visit Plan: Wound care to lesion -neosporin, call if worsening symptoms - finish antibotics 12/08/2012 Appointment: Sarah Gillis WPtel: [address] [place], [place] [phone] [facility] 12/08/2012 Patient Education: Patient Medication Summary Completed 12/08/2012 Visit Plan: Cellulitis - continue with oral antibiotics as previously directed, return to clinic as previously directed, call for acute change in symptoms, worsening redness, warmth, discharge. on 2nd digit right fot debrided and dressing placed over the wound. Arthritis- occasionally uncontrolled symptoms- Use tylenol for break through pain symptoms. 12/02/2012 Appointment: Sarah Gillis WPtel: [facility][note 3]5 [facility] Follow up 12/02/2012 Patient Education: Patient Medication [...] injection today. 10/08/2012 Appointment: Sarah Gillis WPtel: [facility][note 3]5 [facility] Follow up 10/08/2012 Patient Education: Patient Medication Summary Completed 10/08/2012 Patient Education: Hypertension Completed 10/08/2012 Visit Plan: Abnormal bruising-group home coumadin therapy- plan to check PT/INR today in the office and continue to monitor symptoms- instructed patient to call if bleeding/bruising continues or if she becomes weak , dizzy, light headed, etc. Patient and verbalized understanding of plan. 08/27/2012 Appointment: Katy Shore WPtel: [phone] [phone] Other 08/27/2012 Patient Education: Patient Medication Summary Completed 08/27/2012 Appointment: Sarah Gillis WPtel: [phone] [facility] Follow up 07/14/2012 Visit Plan: Hypertension - [...] worsen. 07/09/2012 Appointment: Sarah Gillis WPtel: [phone] [facility] Other 07/09/2012 Patient Education: Patient Medication [...] times daily. 05/19/2012 Appointment: Sarah Gillis WPtel: [phone] [facility] Follow up 05/19/2012 Patient Education: Hypertension Completed 05/19/2012 Patient Education: Patient Medication Summary Completed 05/19/2012 Appointment: Sarah Gillis WPtel: [phone] [facility] Lab Draw 05/13/2012 Patient Education: Patient [...] pain symptoms. 04/28/2012 Appointment: [phone] [facility] Patient 04/28/2012 Patient Education: Patient Medication Summary Completed 04/28/2012 Patient Education: High Blood Pressure: Essential Hypertension Completed 2011 Appointment: Sarah Gillis WPtel: [phone] [facility] [facility] 10/15/2011 Instructions Comment . Bronchitis - acute case of bronchitis identified. Pt has been given antibiotics, breathing treatments as appropriate, and pt has been instructed to call if symptoms are not improved, or if symptoms acutely worsen. . Wound care to lesion -neosporin, call if worsening symptoms - finish antibotics . Bronchitis - Pt has been diagnosed [...] declines but will call if pain worsens Stop the bisoprolol/hctz and the hydrochlorothiazide. START [...] tylenol for break through pain symptoms. . Arthritis- occasionally uncontrolled symptoms- recommend pt [...] with any questions or concerns. . Abnormal bruising-group home coumadin therapy-plan to check PT/INR today [...] nerve pain - pt given injection today. GET TIGER BALM FOR YOUR HIP AND [...]
--- OUTSIDE RECORDS SUMMARY | 2018-08-26 11:01 | XMS REPORT | CCD ---
Author Author Sarah Gillis Organization [facility] Address [address] [place] [address] Phone Care Team Providers Care It Security Administrator Name Role Phone PP Unavailable CCM Unavailable Summary Purpose Interface Exchange Insurance Providers Payer name Policy type / Coverage type Covered constitution party ID Effective Begin Date Effective End Date WPS Medicare Part B Medicare Part B [id number] 2013 Unknown [facility] Medicare Part B [id number] 2013 Unknown Family history Brother Diagnosis Age [...] 2 1 in 2010, 1 lives in [place] 11/07/2016 Marital status Unknown 04/28/2012 Employment Unknown Retired 04/28/[address]: 2786246 Quit over 10 years ago 04/28/[address]: 036779347 Never drinks alcohol 04/28/2012 Allergies, Adverse Reactions, [...] 788.1 ICD-10: R30.0 Active 01/07/2017 Unknown Other senior care (current) drug therapy ICD-9: V58.69 ICD-10: Z79.899 [...] ICD-9: 788.1 ICD-10: R30.0 01/07/2017 Active 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: 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.69 ICD-10: Z79.899 [...] Start Date Stop Date Status Fill Instructions pravastatin 40 mg tablet RxNorm: 936543 TAKE ONE TABLET BY MOUTH EVERY DAY 03/17/2018 02/09/2019 Active Generic For:*PRAVACHOL 40 MG TABLET 03/17/2018 8:03:02 AM amlodipine 5 mg tablet RxNorm: 843868 TAKE ONE (1) TABLET BY MOUTH DAILY 02/18/2018 02/12/2019 Active Generic For:NORVASC 5 MG TABLET 02/18/2018 10:12:27 AM Vitamin D3 5,000 unit tablet RxNorm: 436444 1 Tablet(s) PO daily 02/14/2018 08/12/2018 Active may give OTC bottle Vitamin D3 5,000 unit tablet RxNorm: 373214 1 Tablet(s) PO daily 02/14/2018 02/13/2018 Inactive Vitamin D2 50,000 unit capsule RxNorm: 5635415 1 Capsule(s) PO QW 02/14/2018 02/13/2018 Inactive Vitamin D2 50,000 unit capsule RxNorm: 2748625 1 Capsule(s) PO QW x8 weeks then stop 02/14/2018 04/14/2018 Inactive amlodipine 5 mg tablet RxNorm: 268155 1 Tablet(s) PO daily 02/17/2018 Inactive Generic For:NORVASC 5 MG TABLET REFILL REQUEST 08/27/2016 10:47:17 AM Coumadin 5 mg tablet RxNorm: 487974 1 Tablet(s) PO daily except 1/2 Tab on Sat, Sat12/16/2017 06/15/2018 Active hydrochlorothiazide 12.5 mg tablet RxNorm: 682953 1 Tablet(s) PO daily 12/16/2017 07/13/2018 Active hydrochlorothiazide 12.5 mg tablet RxNorm: 596889 Tablet(s) Tablet(s) 1 Tablet(s) PO daily 11/18/2017 12/15/2017 Inactive PLEASE SEND REFILL REQUESTS ELECTRONICALLY Depakote 125 mg tablet,delayed release RxNorm: 9173101 Tablet(s) Tablet(s) 1 Tablet(s) PO QPM 10/17/2017 05/14/2018 Active PLEASE SEND REFILL REQUESTS ELECTRONICALLY hydrochlorothiazide 12.5 mg tablet RxNorm: 683505 Tablet(s) Tablet(s) 1 Tablet(s) PO daily 10/17/2017 11/17/2017 Inactive PLEASE SEND REFILL REQUESTS ELECTRONICALLY Coumadin 5 mg tablet RxNorm: 554120 1 Tablet(s) daily TAKE 1 TABLET BY MOUTH DAILY 08/15/2017 12/15/2017 Inactive Coumadin 5 mg tablet RxNorm: 976769 Tablet(s) TAKE 1 TABLET BY MOUTH DAILY 06/24/2017 08/14/2017 Inactive pravastatin 40 mg tablet RxNorm: 736251 Tablet(s) TAKE ONE TABLET BY MOUTH EVERY DAY 05/27/2017 03/16/2018 Inactive Voltaren 1 % topical gel RxNorm: 911700 4 Gram(s) TOP QID 05/2106/19/2017 Inactive Depakote 125 mg tablet,delayed release RxNorm: 5951840 Tablet(s) 1 Tablet(s) PO QPM 04/22/2017 10/16/2017 Inactive hydrochlorothiazide 12.5 mg tablet RxNorm: 565517 Tablet(s) 1 Tablet(s) PO daily 03/22/2017 10/16/2017 Inactive amlodipine 5 mg tablet RxNorm: 237257 1 Tablet(s) PO daily 02/12/2018 Inactive Generic For:NORVASC 5 MG TABLET REFILL REQUEST 08/27/2016 10:47:17 AM cephalexin 500 mg tablet RxNorm: 811964 1 Tablet(s) PO TID 01/17/2017 Inactive cephalexin 500 mg tablet RxNorm: 895618 1 Tablet(s) PO TID 01/07/2017 Inactive Coumadin 5 mg tablet RxNorm: 977786 TAKE 1 TABLET BY MOUTH DAILY EXCEPT 1/2 TABLET ON SATURDAY AND Saturday12/26/2016 06/23/2017 Inactive Generic For:COUMADIN 5MG TAB 12/26/2016 9:17:49 AM N O T I C E Last quantity doesn't match original quantity Depakote 125 mg tablet,delayed release RxNorm: 2778687 Tablet(s) 1 Tablet(s) PO QPM 10/25/2016 04/21/2017 Inactive Coumadin 5 mg tablet RxNorm: 385499 TAKE 1 TABLET BY MOUTH DAILY EXCEPT 1/2 TABLET ON SATURDAY AND Saturday09/27/2016 12/25/2016 Inactive Generic For:COUMADIN 5MG TAB N O T I C E Last quantity doesn't match original quantity REFILL REQUEST 09/27/2016 9:43:11 AM Coumadin 4 mg tablet RxNorm: 641256 Tablet(s) as doctor directed TAKE 1 TABLET 4 days per week 09/27/2016 04/24/2017 Inactive Generic For:COUMADIN 4MG TAB amlodipine 5 mg tablet RxNorm: 585603 TAKE 1 TABLET BY MOUTH DAILY 08/27/2016 09/26/2016 Inactive Generic For:NORVASC 5 MG TABLET REFILL REQUEST 08/27/2016 10:47: 17 AM hydrochlorothiazide 12.5 mg tablet RxNorm: 770431 Tablet(s) 1 Tablet(s) PO daily 08/27/2016 03/21/2017 Inactive pravastatin 40 mg tablet RxNorm: 144460 Tablet(s) TAKE ONE TABLET BY MOUTH EVERY DAY 06/29/2016 05/24/2017 Inactive Coumadin 5 mg tablet RxNorm: 591087 1 Tablet(s) PO daily except 1/2 tab on Tu, Sat06/14/2016 09/26/2016 Inactive Coumadin 5 mg tablet RxNorm: 560569 1 Tablet(s) PO daily except 1/2 tab on Tu, Sat06/12/2016 12/08/2016 Inactive Depakote 125 mg tablet,delayed release RxNorm: 0155303 1 Tablet(s) PO QPM 04/30/2016 10/24/2016 Inactive amlodipine 5 mg tablet RxNorm: 739842 Tablet(s) TAKE ONE TABLET BY MOUTH EVERY DAY 03/06/2016 08/26/2016 Inactive Generic For:NORVASC 5 MG TABLET 2015 9:02 :57 AM N O T I C E Last quantity doesn't match original quantity hydrochlorothiazide 12.5 mg tablet RxNorm: 458268 1 Tablet(s) PO daily 02/01/2016 08/26/2016 Inactive Coumadin 5 mg tablet RxNorm: 820201 1 Tablet(s) PO daily except 1/2 tab on , Sat12/26/2015 06/11/2016 Inactive Coumadin 5 mg tablet RxNorm: 264015 TAKE 1 TABLET BY MOUTH 3 DAYS PER WEEK (SAT, , SAT) 11/10/2015 12/25/2015 Inactive Generic For:COUMADIN 5MG TAB PT SAYS TAKING DIFFERENT NOW...WE NEED NEW RX PLEASE Coumadin 5 mg tablet RxNorm: 325376 Tablet(s) TAKE 1 TABLET BY MOUTH 5 DAYS PER WEEK Sun Sat11/04/201511/08 Inactive Generic For:COUMADIN 5MG TAB 10/04/2015 10:19:46 AM Depakote 125 mg tablet,delayed release RxNorm: 8201702 1 Tablet(s) PO QPM 11/04/2015 04/29/2016 Inactive Coumadin 5 mg tablet RxNorm: 399637 TAKE 1 TABLET BY MOUTH 3 DAYS PER WEEK (LAURA CLARKE, SAT) 10/04/2015 11/03/2015 Inactive Generic For:COUMADIN 5MG TAB 10/04/2015 10:19:46 AM amlodipine 5 mg tablet RxNorm: 545413 Tablet(s) TAKE ONE TABLET BY MOUTH EVERY DAY 09/12/2015 03/05/2016 Inactive Generic For:NORVASC 5 MG TABLET 2015 9:02 :57 AM N O T I C E Last quantity doesn't match original quantity Coumadin 5 mg tablet RxNorm: 166669 1 Tablet(s) daily 201510/03/2015 Inactive Voltaren 1 % topical gel RxNorm: 457575 4 Gram(s) TOP QID 06/2904/24/2016 Inactive Depakote 125 mg tablet,delayed release RxNorm: 5633902 1 Tablet(s) PO QPM 06/29/2015 10/26/2015 Inactive hydrochlorothiazide 12.5 mg tablet RxNorm: 521452 1 Tablet(s) PO daily 06/29/2015 01/24/2016 Inactive Depakote 125 mg tablet,delayed release RxNorm: 0509098 1 Tablet(s) PO QPM 06/29/2015 06/28/2015 Inactive pravastatin 40 mg tablet RxNorm: 402466 Tablet(s) TAKE ONE TABLET BY MOUTH EVERY DAY 06/29/2015 06/28/2016 Inactive Generic For:*PRAVACHOL 40 MG TABLET Coumadin 5 mg tablet RxNorm: 316476 1 Tablet(s) PO LAURA CLARKE, SAT 3 days per week 05/09/2015 06/30/2015 Inactive take 4mg on sun sat amlodipine 5 mg tablet RxNorm: 926133 TAKE ONE TABLET BY MOUTH EVERY DAY 2015 09/06/2015 Inactive Generic For:NORVASC 5 MG TABLET 2015 9:02:57 AM N O T I C E Last quantity doesn't match original quantity Coumadin 5 mg tablet RxNorm: 841607 1 Tablet(s) PO LAURA CLARKE, SAT 3 days per week 11/15/2014 05/08/2015 Inactive take 4mg on sun sat Coumadin 4 mg tablet RxNorm: 461857 Tablet(s) as doctor directed TAKE 1 TABLET 4 days per week 11/15/2014 06/12/2015 Inactive Generic For:COUMADIN 4MG TAB Coumadin 5 mg tablet RxNorm: 718885 1 Tablet(s) PO ADITYA CLARKE, [facility] 10/27/2014 11/14/2014 Inactive TAKE 4MG ON SUN Sat [SAVINGS FOR NON-COVERED DRUGS -- BIN: [id number], PCN: ASPROD1, Group: XXXXX, ID# [id number], Questions: . THIS IS NOT INSURANCE.] Coumadin 5 mg tablet RxNorm: 202562 1 Tablet(s) PO [facility], [facility] 10/27/2014 10/26/2014 Inactive amlodipine 5 mg tablet RxNorm: 625574 1 Tablet(s) PO daily 03/10/2015 Inactive Generic For:NORVASC 5 MG TABLET Generic For:NORVASC 5 MG TABLET 2012 8:54:53 AM pravastatin 40 mg tablet RxNorm: 351265 TAKE ONE TABLET BY MOUTH EVERY DAY 08/12/2014 06/28/2015 Inactive Generic For:*PRAVACHOL 40 MG TABLET Coumadin 4 mg tablet RxNorm: 225102 TAKE 1 TABLET BY MOUTH DAILY 08/12/2014 11/14/2014 Inactive Generic For:COUMADIN 4MG TAB pravastatin 40 mg tablet RxNorm: 938881 1 Tablet(s) PO daily TAKE ONE TABLET BY MOUTH EVERY DAY 08/11/2014 08/11/2014 Inactive Generic For:*PRAVACHOL 40 MG TABLET Generic For:*PRAVACHOL 40 MG TABLET Coumadin 4 mg tablet RxNorm: 119201 Tablet(s) PO TAKE ONE TABLET BY MOUTH EVERY DAY 08/11/2014 08/11/2014 Inactive Generic For:COUMADIN 4MG TAB Generic For: COUMADIN 4MG TAB [SAVINGS FOR NON-COVERED DRUGS -- BIN:582491, PCN: ASPROD1, Group: XXXXX, ID# [id number], Questions: . THIS IS NOT INSURANCE.] amlodipine 5 mg tablet RxNorm: 727276 1 Tablet(s) daily 1 Tablet(s) PO daily TAKE ONE (1) TABLET BY MOUTH DAILY 05/12/2014 09/13/2014 Inactive Generic For:NORVASC 5 MG TABLET Generic For:NORVASC 5 MG TABLET 05/18/2013 8:54:53 AM amlodipine 5 mg tablet RxNorm: 553355 1 Tablet(s) PO daily TAKE ONE (1) TABLET BY MOUTH DAILY 01/14/2014 05/11/2014 Inactive Generic For:NORVASC 5 MG TABLET Generic For:NORVASC 5 MG TABLET 05/18/2013 8:54:53 AM Coumadin 4 mg tablet RxNorm: 868862 TAKE 1 TABLET BY MOUTH DAILY 01/14/2014 08/11/2014 Inactive Generic For:COUMADIN 4MG TAB amlodipine 5 mg tablet RxNorm: 805004 1 Tablet(s) PO daily TAKE ONE (1) TABLET BY MOUTH DAILY 01/14/2014 01/08/2015 Inactive Generic For:NORVASC 5 MG TABLET Generic For:NORVASC 5 MG TABLET 05/18/2013 8:54:53 AM amlodipine 5 mg tablet RxNorm: 638699 1 Tablet(s) PO daily TAKE ONE (1) TABLET BY MOUTH DAILY 09/18/2013 01/13/2014 Inactive Generic For:NORVASC 5 MG TABLET Generic For:NORVASC 5 MG TABLET 05/18/2013 8:54:53 AM Coumadin 4 mg tablet RxNorm: 403955 4mg daily Tablet(s) PO daily 07/30/2013 01/13/2014 Inactive Generic For:COUMADIN 4MG TAB pravastatin 40 mg tablet RxNorm: 743315 Tablet(s) PO TAKE ONE TABLET BY MOUTH EVERY DAY 07/20/2013 08/10/2014 Inactive Generic For:*PRAVACHOL 40 MG TABLET Generic For:*PRAVACHOL 40 MG TABLET Kenalog 40 mg/mL suspension for injection RxNorm: 2383795 Milliliter(s) Inj 05/20/2013 05/20/2013 Inactive azithromycin 500 mg tablet RxNorm: 1489979 1 Tablet(s) PO daily 05/20/2013 05/24/2013 Inactive amlodipine 5 mg tablet RxNorm: 197937 Tablet(s) PO TAKE ONE (1) TABLET BY MOUTH DAILY 05/18/2013 05/17/2013 Inactive Generic For:NORVASC 5 MG TABLET Generic For: NORVASC 5 MG TABLET 05/18/2013 8:54:53 AM amlodipine 5 mg tablet RxNorm: 526389 1 Tablet(s) PO daily TAKE ONE (1) TABLET BY MOUTH DAILY 05/18/2013 09/17/2013 Inactive Generic For:NORVASC 5 MG TABLET Generic For:NORVASC 5 MG TABLET 05/18/2013 8:54:53 AM Coumadin 4 mg tablet RxNorm: 440057 2mg wed 4 mg other Tablet(s) PO daily 04/28/2013 07/29/2013 Inactive Generic For:COUMADIN 4MG TAB Coumadin 4 mg tablet RxNorm: 992238 4mg daily Tablet(s) PO daily 04/16/2013 04/27/2013 Inactive Generic For:COUMADIN 4MG TAB Rocephin 500 mg solution for injection RxNorm: 769689 Inj 04/1604/16/2013 Inactive amoxicillin 500 mg tablet RxNorm: 097434 1 Tablet(s) PO TID 04/22/2013 Inactive Coumadin 4 mg tablet RxNorm: 976485 Tablet(s) PO TAKE ONE TABLET BY MOUTH EVERY DAY 04/16/2013 08/10/2014 Inactive Generic For:COUMADIN 4MG TAB Generic For: COUMADIN 4MG TAB Coumadin 4 mg tablet RxNorm: 847634 4mg daily Tablet(s) PO daily 03/18/2013 04/15/2013 Inactive Generic For:COUMADIN 4MG TAB Coumadin 4 mg tablet RxNorm: 344251 2mg on tuesdays, 4mg others Tablet(s) PO daily 03/10/2013 03/17/2013 Inactive Generic For:COUMADIN 4MG TAB Influenza Virus Vaccine 0.5 mL RxNorm: IM 03/10/2013 03/10/2013 Inactive amlodipine 5 mg tablet RxNorm: 085272 Tablet(s) PO TAKE ONE (1) TABLET BY MOUTH DAILY 01/22/2013 05/17/2013 Inactive Generic For:NORVASC 5 MG TABLET 01/22/2013 9: 42:13 AM cephalexin 500 mg tablet RxNorm: 203716 1 Tablet(s) PO TID 12/08/2012 Inactive amlodipine 5 mg tablet RxNorm: 537536 Tablet(s) PO TAKE ONE (1) TABLET BY MOUTH DAILY 09/22/2012 01/21/2013 Inactive Generic For:NORVASC 5 MG TABLET 09/20/2012 9: 10AM 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 Thank you! Coumadin 4 mg tablet RxNorm: 722850 1 Tablet(s) PO daily TAKE ONE TABLET BY MOUTH EVERY DAY 09/15/2012 03/09/2013 Inactive Generic For:COUMADIN 4MG TAB Coumadin 4 mg tablet RxNorm: 099992 Tablet(s) PO TAKE ONE TABLET BY MOUTH EVERY DAY 09/12/2012 09/14/2012 Inactive Generic For:COUMADIN 4MG TAB Coumadin 4 mg tablet RxNorm: 561647 1 Tablet(s) PO daily 201209/11/2012 Inactive new dose Coumadin 4 mg tablet RxNorm: 954730 1 Tablet(s) PO daily 201207/15/2012 Inactive Coumadin 3 mg tablet RxNorm: 504087 1 1/2 Tablet(s) PO daily 07/16/2012 Inactive pravastatin 40 mg tablet RxNorm: 925722 1 Tablet(s) PO daily 07/19/2013 Inactive Coumadin 3 mg tablet RxNorm: 136585 1 1/2 Tablet(s) PO daily 07/15/2012 Inactive amlodipine 5 mg tablet RxNorm: 515844 1 Tablet(s) PO daily 05/201209/21/2012 Inactive Voltaren 1 % Topical Gel RxNorm: 913676 4 Gram(s) TOP QID 04/2805/27/2012 Inactive Chikis 180 mg tablet RxNorm: 775308 1 Tablet(s) PO daily No Start Date Active hydrochlorothiazide 12.5 mg tablet RxNorm: 676797 1 Tablet(s) PO daily No Start Date 06/28/2015 Inactive Ziac 2.5 mg-6.25 mg tablet RxNorm: 351190 1 Tablet(s) PO daily No Start Date 09/15/2013 Inactive Coumadin 3 mg tablet RxNorm: 596262 Tablet(s) PO No Start Date 04/30/2012 Inactive pravastatin 40 mg tablet RxNorm: 120331 1 Tablet(s) PO daily No Start Date 06/25/2012 Inactive Medication Administered Medication Codes Instructions Start Date Status Kenalog 40 mg/mL suspension for injection RxNorm: 5781230 Milliliter 05/20/2013 No longer Active Rocephin 500 mg solution for injection RxNorm: 540808 04/16/2013 No longer Active Influenza Virus Vaccine [...] deficiency, unspecified ICD-10: E55.9 ICD-9: 268.9 02/14/2018 Essential (primary) hypertension ICD-10: I10 ICD-9: 401.1 02/14/2018 Pain in left hip ICD-10: M25.552 ICD-9: 719.45 02/14/2018 Unspecified dementia with behavioral disturbance ICD-10: F03.91 ICD-9: 294.21 02/14/2018 Encounter for therapeutic drug level monitoring ICD-10: Z51.81 ICD-9: V58.61 02/14/2018 Abnormal weight loss ICD-10: R63.4 ICD-9: 783.21 12/09/2017 Dementia in other diseases classified elsewhere without behavioral disturbance ICD-10: F02.80 ICD-9: 294.10 11/14/2017 Localized edema ICD-10: R60.0 ICD-9: 782.3 08/13/2017 Gastro-esophageal reflux disease without esophagitis ICD-10 : K21.9 ICD-9: 530.81 05/07/2017 Urinary tract infection, site not specified ICD-10: N39.0 ICD-9: 599.0 01/08/2017 Essential (primary) hypertension ICD-10: I10 ICD-9: 401.9 01/08/2017 Mixed hyperlipidemia ICD-10: E78.2 ICD-9: 272.2 01/08/2017 Dysuria ICD-10: R30.0 ICD-9: 788.1 01/07/2017 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 ICD-9: V58.69 [...] Code Item Item Code Result Date Pt Qaf5254 PT 28.9 seconds 04/18/2018 Pt Zwi6309 INR 2.8 04/18/2018 Pt Kyq6930 Low Intensity - 1.5-2.0 04/18/2018 Pt Ssr8934 Mod intensity - 2.0-3.0 04/18/2018 Pt Peh8020 Hi intensity - 3.0-4.0 04/18/2018 Pt Wwq3960 PT 23.6 seconds 03/14/2018 Pt Dlj7028 INR 2.1 03/14/2018 Pt Gqn4813 Low Intensity - 1.5-2.0 03/14/2018 Pt Wrv4190 Mod intensity - 2.0-3.0 03/14/2018 Pt Qxu9130 Hi intensity - 3.0-4.0 03/14/2018 Tsh Ord6 TSH (3rd IS) 2.84 uIU/mL 02/14/2018 Vitamin D 25 Oh Woh6572 VITAMIN D, 25 HYDROXY 14.31 ng/mL Comp Metabolic Vpe902 NA 142 mEq/L 02/14/2018 Comp Metabolic Xto674 K 4.0 mEq/L 02/14/2018 Comp Metabolic Zye757 CL 107 mEq/L 02/14/2018 Comp Metabolic Hip534 CO2 25.0 mEq/L 02/14/2018 Comp Metabolic Jbt645 ANION GAP 14 02/14/2018 Comp Metabolic Ulh028 GLUCOSE 71 mg/dL 02/14/2018 Comp Metabolic Cvi051 Creat 0.8 mg/dL 02/14/2018 Comp Metabolic Wpd456 eGFR 77 ml/min/1.73m2 02/14/2018 Comp Metabolic Gyl118 BUN 11 mg/dL 02/14/2018 Comp Metabolic Isv136 B/C Ratio 14.5 Ratio 02/14/2018 Comp Metabolic Pme537 CALCIUM 9.3 mg/dL 02/14/2018 Comp Metabolic Vir063 ALK PHOS 56 U/L 02/14/2018 Comp Metabolic Zmi724 AST(SGOT) 13 U/L 02/14/2018 Comp Metabolic Isj040 ALT(SGPT) 8 U/L 02/14/2018 Comp Metabolic Unh819 BILI T 0.7 mg/dL 02/14/2018 Comp Metabolic Uoj483 ALBUMIN 3.7 g/dL 02/14/2018 Comp Metabolic Kyw221 TPRO 6.5 g/dL 02/14/2018 Comp Metabolic Etm153 GLOB 2.8 g/dL 02/14/2018 Comp Metabolic Zso667 A/G Ratio 1.3 Ratio 02/14/2018 Comp Metabolic Xea115 Osmo 281 mOsmo 02/14/2018 Pt Rrt2122 PT 26.2 seconds 02/14/2018 Pt Jvp2404 INR 2.4 02/14/2018 Pt Suj7251 Low Intensity - 1.5-2.0 02/14/2018 Pt Xtw7412 Mod intensity - 2.0-3.0 02/14/2018 Pt Nkd7033 Hi intensity - 3.0-4.0 02/14/2018 Valproic Acid Jsa038 VALPROIC 20.0 ug/ml 02/14/2018 Cbc With Differential Ord2 WBC 4.67 K/ul 02/14/2018 Cbc With Differential Ord2 RBC 4.86 M/ul 02/14/2018 Cbc With Differential Ord2 HGB 15.8 g/dl 02/14/2018 Cbc With Differential Ord2 Neut% 66.3 % 02/14/2018 Cbc With Differential Ord2 HCT 47.9 % 02/14/2018 Cbc With Differential Ord2 Lymph% 18.8 % 02/14/2018 Cbc With Differential Ord2 MCV 98.6 fl 02/14/2018 Cbc With Differential Ord2 MCH 32.5 pg 02/14/2018 Cbc With Differential Ord2 Catron% 12.8 % 02/14/2018 Cbc With Differential Ord2 [...] 0.88 K/ul 02/14/2018 Cbc With Differential Ord2 Catron ABS# 0.6 K/ul 02/14/2018 Cbc With Differential Ord2 Eos ABS# 0.1 K/ul 02/14/2018 Cbc With Differential Ord2 Baso ABS# 0.0 K/ul 02/14/2018 Pt Iqv7882 PT 29.2 seconds 01/16/2018 Pt Ckq4233 INR 2.7 01/16/2018 Pt Igb5819 Low Intensity - 1.5-2.0 01/16/2018 Pt Abn8174 Mod intensity - 2.0-3.0 01/16/2018 Pt Eqr8546 Hi intensity - 3.0-4.0 01/16/2018 Pt Fiz4262 PT 29.1 seconds 12/09/2017 Pt Eiy3422 INR 2.7 12/09/2017 Pt Ohu9620 Low Intensity - 1.5-2.0 12/09/2017 Pt Zuy1841 Mod intensity - 2.0-3.0 12/09/2017 Pt Wdu6708 Hi intensity - 3.0-4.0 12/09/2017 Pt Qqd7712 PT 25.5 seconds 10/31/2017 Pt Kax2324 INR 2.3 10/31/2017 Pt Cwm3611 Low Intensity - 1.5-2.0 10/31/2017 Pt Nry6910 Mod intensity - 2.0-3.0 10/31/2017 Pt Mri3669 Hi intensity - 3.0-4.0 10/31/2017 Pt Zll0455 PT 29.5 seconds 10/03/2017 Pt Fxq0886 INR 2.8 10/03/2017 Pt Muo9873 Low Intensity - 1.5-2.0 10/03/2017 Pt Vsj4218 Mod intensity - 2.0-3.0 10/03/2017 Pt Nau9887 Hi intensity - 3.0-4.0 10/03/2017 Pt Hip9813 PT 28.1 seconds 08/30/2017 Pt Ptv6304 INR 2.6 08/30/2017 Pt Ttz3642 Low Intensity - 1.5-2.0 08/30/2017 Pt Xfd3116 Mod intensity - 2.0-3.0 08/30/2017 Pt Gii2215 Hi intensity - 3.0-4.0 08/30/2017 Pt Xvr8515 PT 33.2 seconds 08/15/2017 Pt Njo1079 INR 3.2 08/15/2017 Pt Zyz3306 Low Intensity - 1.5-2.0 08/15/2017 Pt Iod1928 Mod intensity - 2.0-3.0 08/15/2017 Pt Shz9798 Hi intensity - 3.0-4.0 08/15/2017 Pt Dul3025 PT 31.5 seconds 07/10/2017 Pt Amz6831 INR 3.0 07/10/2017 Pt Ijr8739 Low Intensity - 1.5-2.0 07/10/2017 Pt Vvx0468 Mod intensity - 2.0-3.0 07/10/2017 Pt Kwu6019 Hi intensity - 3.0-4.0 07/10/2017 Pt Oup0078 PT 33.5 seconds 05/31/2017 Pt Guc9126 INR 3.2 05/31/2017 Pt Cqn6255 Low Intensity - 1.5-2.0 05/31/2017 Pt Gfc4133 Mod intensity - 2.0-3.0 05/31/2017 Pt Nkk1279 Hi intensity - 3.0-4.0 05/31/2017 Pt Fyu5170 PT 32.2 seconds 05/02/2017 Pt Ctn7784 INR 3.1 05/02/2017 Pt Xkr0120 Low Intensity - 1.5-2.0 05/02/2017 Pt Qph0764 Mod intensity - 2.0-3.0 05/02/2017 Pt Exx7220 Hi intensity - 3.0-4.0 05/02/2017 Pt Bwj5905 PT 26.8 seconds 03/28/2017 Pt Dex7559 INR 2.5 03/28/2017 Pt Dey5181 Low Intensity - 1.5-2.0 03/28/2017 Pt Hpk1620 Mod intensity - 2.0-3.0 03/28/2017 Pt Gpn5543 Hi intensity - 3.0-4.0 03/28/2017 Pt Axh6722 PT 26.8 seconds 02/22/2017 Pt Dun6588 INR 2.5 02/22/2017 Pt Ugp6057 Low Intensity - 1.5-2.0 02/22/2017 Pt Yeq9656 Mod intensity - 2.0-3.0 02/22/2017 Pt Cxy5019 Hi intensity - 3.0-4.0 02/22/2017 Pt Kyy0186 PT 20.1 seconds 02/07/2017 Pt Qpf4802 INR 1.7 02/07/2017 Pt Ftr9658 Low Intensity - 1.5-2.0 02/07/2017 Pt Rdl6778 Mod intensity - 2.0-3.0 02/07/2017 Pt Zjr4348 Hi intensity - 3.0-4.0 02/07/2017 Culture Urine [id number] URINE CULTURE SEE NOTES 01/10/2017 Culture Urine [id number] Continued Results 01/10/2017 Valproic Acid (Depakote) S 466088 VALPROIC ACID 20.3 ug/mL 01/08/2017 Urine Culture Ucult Complete >100,000 col/ml aerobic growth sent to ref lab 01/08/2017 Pt Unn9689 PT 19.5 seconds 01/07/2017 Pt Zjc1363 INR 1.7 01/07/2017 Pt Vba9371 Low Intensity - 1.5-2.0 01/07/2017 Pt Wqo2678 Mod intensity - 2.0-3.0 01/07/2017 Pt Pic5856 Hi intensity - 3.0-4.0 01/07/2017 Cbc With Differential Ord2 WBC 4.94 [...] 32.0 pg 01/07/2017 Cbc With Differential Ord2 Catron% 10.5 % 01/07/2017 Cbc With Differential Ord2 Eos% 2.4 % 01/07/2017 Cbc With Differential Ord2 MCHC 32.7 pg 01/07/2017 Cbc With Differential Ord2 Baso% 0.2 % 01/07/2017 Cbc With Differential Ord2 PLT 210 K/ul 01/07/2017 Cbc With Differential Ord2 Neut ABS# 3.32 K/ul 01/07/2017 Cbc With Differential Ord2 RDW 14.3 % 01/07/2017 Cbc With Differential Ord2 Lymph ABS# 0.97 K/ul 01/07/2017 Cbc With Differential Ord2 Catron ABS# 0.5 K/ul 01/07/2017 Cbc With Differential Ord2 Eos ABS# 0.1 K/ul 01/07/2017 Cbc With Differential Ord2 Baso ABS# 0.0 K/ul 01/07/2017 Comp Metabolic Zco002 NA 142 mEq/L 01/07/2017 Comp Metabolic Upo733 K 4.0 mEq/L 01/07/2017 Comp Metabolic Ilb572 CL 105 mEq/L 01/07/2017 Comp Metabolic Ixv125 CO2 24.0 mEq/L 01/07/2017 Comp Metabolic Yvt813 ANION GAP 17 01/07/2017 Comp Metabolic Afm191 GLUCOSE 81 mg/dL 01/07/2017 Comp Metabolic Khs139 Creat 0.8 mg/dL 01/07/2017 Comp Metabolic Uic088 eGFR 72 ml/min/1.73m2 01/07/2017 Comp Metabolic Htd004 BUN 12 mg/dL 01/07/2017 Comp Metabolic Sgw795 B/C Ratio 15.0 Ratio 01/07/2017 Comp Metabolic Din394 CALCIUM 9.0 mg/dL 01/07/2017 Comp Metabolic Wks536 ALK PHOS 59 U/L 01/07/2017 Comp Metabolic Cxb006 AST(SGOT) 18 U/L 01/07/2017 Comp Metabolic Vtd406 ALT(SGPT) 11 U/L 01/07/2017 Comp Metabolic Dwu757 BILI T 0.6 mg/dL 01/07/2017 Comp Metabolic Djd867 ALBUMIN 3.6 g/dL 01/07/2017 Comp Metabolic Ect123 TPRO 6.7 g/dL 01/07/2017 Comp Metabolic Gkb057 GLOB 3.1 g/dL 01/07/2017 Comp Metabolic Ufs326 A/G Ratio 1.2 Ratio 01/07/2017 Comp Metabolic Toh347 Osmo 282 mOsmo 01/07/2017 Tsh Ord6 hTSH II 2.50 uIU/mL 01/07/2017 Pt Low7851 PT 22.5 seconds 12/06/2016 Pt Ibb4912 INR 2.1 12/06/2016 Pt Yeh3748 Low Intensity - 1.5-2.0 12/06/2016 Pt Mxr0704 Mod intensity - 2.0-3.0 12/06/2016 Pt Aos0490 Hi intensity - 3.0-4.0 12/06/2016 Pt Auk7882 PT 20.8 seconds 10/29/2016 Pt Uyo3585 INR 1.9 10/29/2016 Pt Bld7649 Low Intensity - 1.5-2.0 10/29/2016 Pt Gfg3603 Mod intensity - 2.0-3.0 10/29/2016 Pt Fst2905 Hi intensity - 3.0-4.0 10/29/2016 Pt Dtg1972 PT 21.9 seconds 09/24/2016 Pt Nit4820 INR 2.0 09/24/2016 Pt Has0134 Low Intensity - 1.5-2.0 09/24/2016 Pt Ixs7465 Mod intensity - 2.0-3.0 09/24/2016 Pt Sce2034 Hi intensity - 3.0-4.0 09/24/2016 Pt Zkm4204 PT 21.0 seconds 09/10/2016 Pt Ckp8646 INR 1.9 09/10/2016 Pt Zgg0039 Low Intensity - 1.5-2.0 09/10/2016 Pt Yej5593 Mod intensity - 2.0-3.0 09/10/2016 Pt Wtq8057 Hi intensity - 3.0-4.0 09/10/2016 Pt Srg6302 PT 22.8 seconds 08/20/2016 Pt Tjy8570 INR 2.1 08/20/2016 Pt Gbu9067 Low Intensity - 1.5-2.0 08/20/2016 Pt Ebx6175 Mod intensity - 2.0-3.0 08/20/2016 Pt Onz4788 Hi intensity - 3.0-4.0 08/20/2016 Pt Npi0123 PT 19.2 seconds 08/02/2016 Pt Bot2992 INR 1.7 08/02/2016 Pt Mgg4992 Low Intensity - 1.5-2.0 08/02/2016 Pt Vyz6483 Mod intensity - 2.0-3.0 08/02/2016 Pt Hiu7840 Hi intensity - 3.0-4.0 08/02/2016 Pt Fja9139 PT 31.2 seconds 07/12/2016 Pt Scz2968 INR 3.2 07/12/2016 Pt Lpe0518 Low Intensity - 1.5-2.0 07/12/2016 Pt Qrp6433 Mod intensity - 2.0-3.0 07/12/2016 Pt Lur3510 Hi intensity - 3.0-4.0 07/12/2016 Pt Czz6014 PT 20.3 seconds 07/05/2016 Pt Lts2204 INR 1.8 07/05/2016 Pt Axg2341 Low Intensity - 1.5-2.0 07/05/2016 Pt Nrh6983 Mod intensity - 2.0-3.0 07/05/2016 Pt Fcq0699 Hi intensity - 3.0-4.0 07/05/2016 Pt Liy3988 PT 22.2 seconds 05/29/2016 Pt Jhe8702 INR 2.1 05/29/2016 Pt Jvx7214 Low Intensity - 1.5-2.0 05/29/2016 Pt Jqg6489 Mod intensity - 2.0-3.0 05/29/2016 Pt Efi3461 Hi intensity - 3.0-4.0 05/29/2016 Cbc With [...] 25.9 % 04/25/2016 Cbc With Differential Ord2 Catron% 12.4 % 04/25/2016 Cbc With Differential Ord2 MCH 32.5 pg 04/25/2016 Cbc With Differential Ord2 MCHC 32.8 pg 04/25/2016 Cbc With Differential Ord2 Eos% 2.2 % 04/25/2016 Cbc With Differential Ord2 Baso% 0.2 % 04/25/2016 Cbc With Differential Ord2 PLT 203 K/ul 04/25/2016 Cbc With Differential Ord2 Neut ABS# 2.95 K/ul 04/25/2016 Cbc With Differential Ord2 RDW 14.1 % 04/25/2016 Cbc With Differential Ord2 Lymph ABS# 1.29 K/ul 04/25/2016 Cbc With Differential Ord2 Catron ABS# 0.6 K/ul 04/25/2016 Cbc With Differential Ord2 Eos ABS# 0.1 K/ul 04/25/2016 Cbc With Differential Ord2 Baso ABS# 0.0 K/ul 04/25/2016 Tsh Ord6 hTSH II 3.38 uIU/mL 04/25/2016 Valproic Acid Yyl939 VALPROIC 17.0 ug/ml 04/25/2016 Comp Metabolic Ajd804 NA 138 mEq/L 04/25/2016 Comp Metabolic Cpw624 K 4.1 mEq/L 04/25/2016 Comp Metabolic Xmx915 CL 105 mEq/L 04/25/2016 Comp Metabolic Xok795 CO2 25.0 mEq/L 04/25/2016 Comp Metabolic Mvj922 ANION GAP 12 04/25/2016 Comp Metabolic Dpz408 GLUCOSE 89 mg/dL 04/25/2016 Comp Metabolic Wrr294 Creat 0.8 mg/dL 04/25/2016 Comp Metabolic Myr715 eGFR 71 ml/min/1.73m2 04/25/2016 Comp Metabolic Ruz639 BUN 14 mg/dL 04/25/2016 Comp Metabolic Jkm038 B/C Ratio 17.3 Ratio 04/25/2016 Comp Metabolic Ttm813 CALCIUM 9.0 mg/dL 04/25/2016 Comp Metabolic Ake866 ALK PHOS 63 U/L 04/25/2016 Comp Metabolic Ino986 AST(SGOT) 15 U/L 04/25/2016 Comp Metabolic Tkt153 ALT(SGPT) 9 U/L 04/25/2016 Comp Metabolic Heo356 BILI T 0.4 mg/dL 04/25/2016 Comp Metabolic Aqy767 ALBUMIN 3.7 g/dL 04/25/2016 Comp Metabolic Smx692 TPRO 6.4 g/dL 04/25/2016 Comp Metabolic Giw542 GLOB 2.7 g/dL 04/25/2016 Comp Metabolic Gqx444 A/G Ratio 1.4 Ratio 04/25/2016 Comp Metabolic Rsj553 Osmo 276 mOsmo 04/25/2016 Pt Hvc9226 PT 21.9 seconds 04/25/2016 Pt Jyy9649 INR 2.0 04/25/2016 Pt Bry5861 Low Intensity - 1.5-2.0 04/25/2016 Pt Cey9725 Mod intensity - 2.0-3.0 04/25/2016 Pt Mhj1922 Hi intensity - 3.0-4.0 04/25/2016 Pt Pci3857 PT 24.4 seconds 03/27/2016 Pt Pgq4813 INR 2.3 03/27/2016 Pt Fha8513 Low Intensity - 1.5-2.0 03/27/2016 Pt Wcn2700 Mod intensity - 2.0-3.0 03/27/2016 Pt Twr3823 Hi intensity - 3.0-4.0 03/27/2016 Pt Utb9049 PT 22.7 seconds 02/24/2016 Pt Xbu2749 INR 2.1 02/24/2016 Pt Clm1334 Low Intensity - 1.5-2.0 02/24/2016 Pt Orw5632 Mod intensity - 2.0-3.0 02/24/2016 Pt Scf7569 Hi intensity - 3.0-4.0 02/24/2016 Pt Soi8364 PT 24.2 seconds 02/10/2016 Pt Les0269 INR 2.3 02/10/2016 Pt Tam5669 Low Intensity - 1.5-2.0 02/10/2016 Pt Ygu1006 Mod intensity - 2.0-3.0 02/10/2016 Pt Wqg6218 Hi intensity - 3.0-4.0 02/10/2016 Pt Upz9130 PT 15.7 seconds 01/26/2016 Pt Xwf2964 INR 1.3 01/26/2016 Pt Jwe1629 Low Intensity - 1.5-2.0 01/26/2016 Pt Ogl4725 Mod intensity - 2.0-3.0 01/26/2016 Pt Cuy3311 Hi intensity - 3.0-4.0 01/26/2016 Pt Ffw0958 PT 22.0 seconds 01/02/2016 Pt Xfa0765 INR 2.0 01/02/2016 Pt Irv4411 Low Intensity - 1.5-2.0 01/02/2016 Pt Ipv7504 Mod intensity - 2.0-3.0 01/02/2016 Pt Ljg5069 Hi intensity - 3.0-4.0 01/02/2016 Pt Jze7183 PT 21.9 seconds 11/30/2015 Pt Kmz8541 INR 2.0 11/30/2015 Pt Vmq1128 Low Intensity - 1.5-2.0 11/30/2015 Pt Zyz0731 Mod intensity - 2.0-3.0 11/30/2015 Pt Wqu9381 Hi intensity - 3.0-4.0 11/30/2015 Pt Iga7550 PT 20.0 seconds 10/28/2015 Pt Iny7545 INR 1.8 10/28/2015 Pt Ebw2832 Low Intensity - 1.5-2.0 10/28/2015 Pt Oli5573 Mod intensity - 2.0-3.0 10/28/2015 Pt Hru8539 Hi intensity - 3.0-4.0 10/28/2015 Cbc With [...] 17.8 % 09/19/2015 Cbc With Differential Ord2 Catron% 11.4 % 09/19/2015 Cbc With Differential Ord2 MCH 32.2 pg 09/19/2015 Cbc With Differential Ord2 MCHC 33.9 pg 09/19/2015 Cbc With Differential Ord2 Eos% 1.4 % 09/19/2015 Cbc With Differential Ord2 Baso% 0.4 % 09/19/2015 Cbc With Differential Ord2 PLT 200 K/ul 09/19/2015 Cbc With Differential Ord2 RDW 13.7 % 09/19/2015 Cbc With Differential Ord2 Neut ABS# 3.45 K/ul 09/19/2015 Cbc With Differential Ord2 Lymph ABS# 0.89 K/ul 09/19/2015 Cbc With Differential Ord2 Catron ABS# 0.6 K/ul 09/19/2015 Cbc With Differential Ord2 Eos ABS# 0.1 K/ul 09/19/2015 Cbc With Differential Ord2 Baso ABS# 0.0 K/ul 09/19/2015 Cbc With Differential Ord2 New Analyzer Notice Please note new ref ranges starting 06-29-2015 due to implemntation of new five part differential hematolgy analyzer. 09/19/2015 Pt Xhs8121 PT 28.3 seconds 09/19/2015 Pt Bsb0079 INR 2.8 09/19/2015 Pt Czp2367 Low Intensity - 1.5-2.0 09/19/2015 Pt Xhv2451 Mod intensity - 2.0-3.0 09/19/2015 Pt Ubb8020 Hi intensity - 3.0-4.0 09/19/2015 Pt Yeb9497 PT 22.5 seconds 08/12/2015 Pt Ech4695 INR 2.1 08/12/2015 Pt Lcp1869 Low Intensity - 1.5-2.0 08/12/2015 Pt Icq4004 Mod intensity - 2.0-3.0 08/12/2015 Pt Uis5554 Hi intensity - 3.0-4.0 08/12/2015 Pt Xma0994 PT 34.1 seconds 07/29/2015 Pt Onn0358 INR 3.5 07/29/2015 Pt Gnf3550 Low Intensity - 1.5-2.0 07/29/2015 Pt Fgj3324 Mod intensity - 2.0-3.0 07/29/2015 Pt Btu1150 Hi intensity - 3.0-4.0 07/29/2015 Comp Metabolic Jhb798 NA 139 mEq/L 06/29/2015 Comp Metabolic Paz187 K 3.8 mEq/L 06/29/2015 Comp Metabolic Okl087 CL 105 mEq/L 06/29/2015 Comp Metabolic Xdf302 CO2 21.0 mEq/L 06/29/2015 Comp Metabolic Clp911 ANION GAP 17 06/29/2015 Comp Metabolic Kvs125 GLUCOSE 78 mg/dL 06/29/2015 Comp Metabolic Pih800 Creat 0.7 mg/dL 06/29/2015 Comp Metabolic Ldg278 eGFR 86 ml/min/1.73m2 06/29/2015 Comp Metabolic Lup376 BUN 7 mg/dL 06/29/2015 Comp Metabolic Qxj068 B/C Ratio 10.1 Ratio 06/29/2015 Comp Metabolic Anr919 CALCIUM 9.3 mg/dL 06/29/2015 Comp Metabolic Fwv324 ALK PHOS 84 U/L 06/29/2015 Comp Metabolic Heg227 AST(SGOT) 17 U/L 06/29/2015 Comp Metabolic Qcc316 ALT(SGPT) 10 U/L 06/29/2015 Comp Metabolic Yvj736 BILI T 1.0 mg/dL 06/29/2015 Comp Metabolic Lsy544 ALBUMIN 4.1 g/dL 06/29/2015 Comp Metabolic Ayd449 TPRO 7.0 g/dL 06/29/2015 Comp Metabolic Kau684 GLOB 2.9 g/dL 06/29/2015 Comp Metabolic Ohw791 A/G Ratio 1.4 Ratio 06/29/2015 Comp Metabolic Gkn550 Osmo 274 mOsmo 06/29/2015 Lipid Ord30 CHOL [...] Differential * RDW 13.9 % 06/29/2015 Pt Yxp0646 PT 14.2 seconds 06/29/2015 Pt Plb6395 INR 1.1 06/29/2015 Pt Sfk1833 Low Intensity - 1.5-2.0 06/29/2015 Pt Xhw9124 Mod intensity - 2.0-3.0 06/29/2015 Pt Gko2573 Hi intensity - 3.0-4.0 06/29/2015 Tsh Ord6 hTSH II 2.48 uIU/mL 06/29/2015 Pt Qua1065 PT 25.9 seconds 05/16/2015 Pt Yic6270 INR 2.5 05/16/2015 Pt Iwa2280 Low Intensity - 1.5-2.0 05/16/2015 Pt Gvg2768 Mod intensity - 2.0-3.0 05/16/2015 Pt Zcj7974 Hi intensity - 3.0-4.0 05/16/2015 Pt Akx3629 PT 28.2 seconds 04/19/2015 Pt Zoe7796 INR 2.7 04/19/2015 Pt Bzj2523 Low Intensity - 1.5-2.0 04/19/2015 Pt Pdi0473 Mod intensity - 2.0-3.0 04/19/2015 Pt Kpa9179 Hi intensity - 3.0-4.0 04/19/2015 Pt Bhj9387 PT 29.7 seconds 02/17/2015 Pt Wsk1792 INR 2.9 02/17/2015 Pt Mkn8978 Low Intensity - 1.5-2.0 02/17/2015 Pt Uxs7848 Mod intensity - 2.0-3.0 02/17/2015 Pt Hqm1031 Hi intensity - 3.0-4.0 02/17/2015 Pt Kow1180 PT 26.8 seconds 02/07/2015 Pt Qng9505 INR 2.6 02/07/2015 Pt Ghl1493 Low Intensity - 1.5-2.0 02/07/2015 Pt Hap3504 Mod intensity - 2.0-3.0 02/07/2015 Pt Qdw4857 Hi intensity - 3.0-4.0 02/07/2015 Comp Metabolic Ptj530 NA 136 mEq/L 02/07/2015 Comp Metabolic Vui105 K 4.2 mEq/L 02/07/2015 Comp Metabolic Yue386 CL 105 mEq/L 02/07/2015 Comp Metabolic Esj035 CO2 23.0 mEq/L 02/07/2015 Comp Metabolic Idg190 ANION GAP 12 02/07/2015 Comp Metabolic Zkq927 GLUCOSE 129 mg/dL 02/07/2015 Comp Metabolic Kbu407 Creat 0.9 mg/dL 02/07/2015 Comp Metabolic Lbe677 eGFR 67 ml/min/1.73m2 02/07/2015 Comp Metabolic Npp764 BUN 13 mg/dL 02/07/2015 Comp Metabolic Nyg504 B/C Ratio 15.1 Ratio 02/07/2015 Comp Metabolic Ukk005 CALCIUM 9.3 mg/dL 02/07/2015 Comp Metabolic Oii132 ALK PHOS 79 U/L 02/07/2015 Comp Metabolic Caj684 AST(SGOT) 16 U/L 02/07/2015 Comp Metabolic Wpq928 ALT(SGPT) 10 U/L 02/07/2015 Comp Metabolic Zhc994 BILI T 0.5 mg/dL 02/07/2015 Comp Metabolic Jzj659 ALBUMIN 4.0 g/dL 02/07/2015 Comp Metabolic Xsn394 TPRO 6.9 g/dL 02/07/2015 Comp Metabolic Lsf438 GLOB 2.9 g/dL 02/07/2015 Comp Metabolic Udp199 A/G Ratio 1.4 Ratio 02/07/2015 Comp Metabolic Sgq121 Osmo 274 mOsmo 02/07/2015 Cbc With Differential Ord2 WBC 5.4 [...] With Differential Ord2 RDW 14.5 % 02/07/2015 Tsh Ord6 hTSH II 2.36 uIU/mL 02/07/2015 Pt Gab7116 PT 27.9 seconds 02/04/2015 Pt Pmf1890 INR 2.7 02/04/2015 Pt Meu6677 Low Intensity - 1.5-2.0 02/04/2015 Pt Eot7300 Mod intensity - 2.0-3.0 02/04/2015 Pt Jbh9243 Hi intensity - 3.0-4.0 02/04/2015 Pt Gqz7875 PT 17.2 seconds 01/25/2015 Pt Tnb4440 INR 1.4 01/25/2015 Pt Edb5211 Low Intensity - 1.5-2.0 01/25/2015 Pt Gxq2114 Mod intensity - 2.0-3.0 01/25/2015 Pt Wzx2572 Hi intensity - 3.0-4.0 01/25/2015 Pt Fiu0955 PT 20.7 seconds 12/23/2014 Pt Xph8090 INR 1.8 12/23/2014 Pt Fqq7510 Low Intensity - 1.5-2.0 12/23/2014 Pt Amr8798 Mod intensity - 2.0-3.0 12/23/2014 Pt Aji0895 Hi intensity - 3.0-4.0 12/23/2014 PT/MC 0750203 PRO TIME 24.9 SEC 08/27/2012 PT/MC 4239586 INR MCMC 2.2 08/27/2012 PT/MC 7872410 PRO TIME 31.1 SEC 05/13/2012 PT/MC 0285046 INR MCMC 3.0 05/13/2012 CHEM 14 0972447 AST 16 U/L 04/30/2012 CHEM 14 5673552 ALT 9 IU/L 04/30/2012 CHEM 14 2371008 BUN 7 MG/DL 04/30/2012 CHEM 14 1803050 ALBUMIN 4.0 GM/DL 04/30/2012 CHEM 14 6298525 CHLORIDE 107 MMOL/L 04/30/2012 CHEM 14 7740152 BILI TOT 0.7 MG/DL 04/30/2012 CHEM 14 1200584 ALK PHOS 68 U/L 04/30/2012 CHEM 14 3375023 SODIUM 142 MMOL/L 04/30/2012 CHEM 14 0607096 CREATININE 0.80 MG/DL 04/30/2012 CHEM 14 5212381 CALCIUM 9.5 MG/DL 04/30/2012 CHEM 14 8057921 POTASSIUM 3.7 MMOL/L 04/30/2012 CHEM 14 3840902 PROT TOT 7.1 GM/DL 04/30/2012 CHEM 14 4225417 GLUCOSE 88 MG/DL 04/30/2012 CHEM 14 8620413 BICARB 27 MMOL/L 04/30/2012 CHEM 14 4571175 ANION GAP 8 MEQ/L 04/30/2012 GFR CALC 2821760 GFR AA >60 ML/MIN 04/30/2012 GFR CALC 4867377 GFR NON-AA >60 ML/MIN 04/30/2012 TSH 4017779 TSH 3.019 uIU/ML 04/30/2012 CBC 0954706 WBC 4.0 10e9/L 04/30/2012 CBC 5874317 RBC 4.94 10e12/L 04/30/2012 CBC 9194126 HGB 15.7 g/dL 04/30/2012 CBC 0139308 HCT DET 47.5 % 04/30/2012 CBC 0698327 MCV 96.2 fL 04/30/2012 CBC 8366927 MCH 31.8 pg 04/30/2012 CBC 0445314 MCHC 33.1 g/dL 04/30/2012 CBC 6516058 PLT 226 10e9/L 04/30/2012 CBC 0454272 MPV 10.9 fL 04/30/2012 CBC 8008876 KOBY % 64.8 % 04/30/2012 CBC 3571952 LY % 22.1 % 04/30/2012 CBC 4550654 MON % 9.5 % 04/30/2012 CBC 8690407 EOS % 3.3 % 04/30/2012 CBC 7669485 BASO % 0.3 % 04/30/2012 CBC 8217173 RDW 13.5 % 04/30/2012 CBC 5748582 ABS KOBY 2.59 10e9/L 04/30/2012 CBC 6299521 ABS LYMPH 0.88 10e9/L 04/30/2012 CBC 9895057 ABS MONO 0.38 10e9/L 04/30/2012 CBC 8496556 ABS EOS 0.13 10e9/L 04/30/2012 CBC 9086168 ABS BASO 0.01 10e9/L 04/30/2012 CBC 5369878 RDW-SD 46.5 fL 04/30/2012 PT/MC 1104415 PRO TIME 18.5 SEC 04/30/2012 PT/MC 5267930 INR MCMC 1.5 04/30/2012 LIPID GRP HDL TEST 47 MG/DL 04/30/2012 LIPID GRP TRIG 131 MG/DL 04/30/2012 LIPID GRP TEST LDL 145 MG/DL 04/30/2012 LIPID GRP 2881319 CHOL 218 MG/DL 04/30/2012 LIPID GRP RCHOL/HDL [...] accomodation 12/24/2013 None Full Exam - General 1995 Respiratory [...] 1995 Constitutional general appearance Development: well developed 04/30/2013 None Full Exam - General 1995 [...] Procedure Codes Date DESTRUCT PREMALG LESION CPT-4: 87293 11/07/2016 ADMIN INFLUENZA VIRUS VAC CPT-4: G0008 03/25/2015 FLU VACC 4 CHANTELLE 3 YRS PLUS IM Formatting Model/CDA Sections, Assigned to SNOMED CT: [id number] CPT-4: 51599Aojjpmg 03/25/2015 ADMIN INFLUENZA VIRUS VAC Assigned to CPT-4: Q9633Lzsdjhw 04/23/2014 FLU VAC NO PRSV 4 CHANTELLE 3 YRS+ CPT-4: 73831 04/23/2014 TRIAMCINOLONE ACET INJ NOS CPT-4: J3301 05/20/2013 THER/PROPH/DIAG INJ SC/IM CPT-4: 98851 05/20/2013 PRESCRIP TRANSMIT VIA ERX SY CPT-4: G8553 05/20/2013 URINALYSIS NONAUTO W/O SCOPE CPT-4: 33833 04/30/2013 THER/PROPH/DIAG INJ SC/IM CPT-4: 43017 04/16/2013 ROCEPHIN, PER 250 MG CPT-4: J0696 04/16/2013 PRESCRIP TRANSMIT VIA ERX SY CPT-4: G8553 04/16/2013 ADMIN INFLUENZA VIRUS VAC CPT-4: G0008 03/10/2013 FLULAVAL VACC, 3 YRS & >, IM CPT-4: Q2036 03/10/2013 PRESCRIP TRANSMIT VIA ERX SY CPT-4: G8553 12/02/2012 TRIAMCINOLONE ACET INJ NOS CPT-4: J3301 10/08/2012 INJ TRIGGER POINT 1/2 MUSCL CPT-4: 81775 10/08/2012 ROUTINE VENIPUNCTURE CPT-4: 42954 08/27/2012 DRAIN/INJECT JOINT/BURSA CPT-4: 23597 07/09/2012 TRIAMCINOLONE ACET INJ NOS CPT-4: J3301 07/09/2012 ROUTINE VENIPUNCTURE CPT-4: 25300 05/13/2012 ROUTINE VENIPUNCTURE CPT-4: 77914 04/30/2012 PRESCRIP TRANSMIT VIA ERX SY CPT-4: G8553 04/28/2012 Vital Signs Date Vital 02/14/2018 Blood Pressure 1: 130/78 Code : 8480-6 BMI: 24.6 Code : 06211-4 Heart Rate 1 : 64 bpm Height: 5'1" SpO2: 96% Weight: 130 lbs 12/09/2017 BMI: 24.0 Code: 23620-0 Height: 5'1" Weight: 127 lbs 11/14/2017 Blood Pressure 1: 140/74 Code : 8480-6 Heart Rate 1: 78 bpm SpO2: 94% Weight: 127 lbs 08/13/2017 Blood Pressure 1: 120/76 Code : 8480-6 BMI: 24.9 Code : 63660-8 Heart Rate 1 : 76 bpm Height: 5'1" SpO2: 96% Weight: 132 lbs 05/21/2017 Blood Pressure 1: 132/80 Code : 8480-6 BMI: 26.1 Code : 30287-5 Heart Rate 1 : 61 bpm Height: 5'1" SpO2: 92% Weight: 138 lbs 05/07/2017 Blood Pressure 1: 128/70 Code : 8480-6 BMI: 25.9 Code : 92298-9 Heart Rate 1 : 72 bpm Height: 5'1" SpO2: 96% Weight: 137 lbs 01/08/2017 Blood Pressure 1: 136/82 Code : 8480-6 BMI: 25.5 Code : 05966-0 Heart Rate 1 : 75 bpm Height: 5'1" SpO2: 96% Weight: 135 lbs 01/07/2017 Blood Pressure 1: 142/86 Code : 8480-6 BMI: 25.5 Code : 13661-7 Heart Rate 1 : 75 bpm Height: 5'1" SpO2: 95% Weight: 135 lbs 11/07/2016 Blood Pressure 1: 120/80 Code : 8480-6 BMI: 25.5 Code : 03452-8 Heart Rate 1 : 83 bpm Height: 5'1" SpO2: 97% Weight: 135 lbs 07/26/2016 Blood Pressure 1: 140/80 Code : 8480-6 BMI: 27.0 Code : 18241-9 Heart Rate 1 : 68 bpm Height: 5'1" SpO2: 94% Weight: 143 lbs 04/25/2016 Blood Pressure 1: 128/82 Code : 8480-6 BMI: 28.2 Code : 34963-7 Heart Rate 1 : 71 bpm Height: 5'1" SpO2: 98% Weight: 149 lbs 10/04/2015 Blood Pressure 1: 140/80 Code : 8480-6 BMI: 27.8 Code : 89047-2 Heart Rate 1 : 77 bpm Height: 5'1" SpO2: 96% Weight: 147 lbs 06/29/2015 Blood Pressure 1: 134/70 Code : 8480-6 BMI: 26.8 Code : 17736-9 Heart Rate 1 : 68 bpm Height: 5'1" SpO2: 95% Weight: 142 lbs 02/17/2015 Blood Pressure 1: 128/80 Code : 8480-6 Heart Rate 1: 85 bpm Height: 5'1" SpO2: 96% Weight: 02/07/2015 Blood Pressure 1: 130/68 Code : 8480-6 BMI: 28.7 Code : 05938-7 Heart Rate 1 : 80 bpm Height: 5'1" SpO2: 95% Weight: 152 lbs 03/30/2014 Blood Pressure 1: 142/80 Code : 8480-6 BMI: 27.8 Code : 77752-8 Heart Rate 1 : 83 bpm Height: 5'1" SpO2: 95% Weight: 147 lbs 12/24/2013 Blood Pressure 1: 120/80 Code : 8480-6 BMI: 27.8 Code : 17284-5 Heart Rate 1 : 76 bpm Height: 5'1" Weight: 147 lbs 12/01/2013 Blood Pressure 1: 138/82 Code : 8480-6 BMI: 28.0 Code : 91326-4 Heart Rate 1 : 76 bpm Height: 5'1" SpO2: 91% Weight: 148 lbs 11/27/2013 Blood Pressure 1: 140/90 Code : 8480-6 BMI: 28.0 Code : 05614-0 Heart Rate 1 : 76 bpm Height: 5'1" SpO2: 95% Weight: 148 lbs 08/27/2013 Blood Pressure 1: 132/76 Code : 8480-6 BMI: 26.5 Code : 98518-9 Heart Rate 1 : 72 bpm Height: 5'1" Weight: 140 lbs 05/20/2013 Blood Pressure 1: 122/80 Code : 8480-6 BMI: 26.8 Code : 84556-0 Heart Rate 1 : 80 bpm Height: 5'1" SpO2: 98% Temperature: 37.3 (C) / 99.2 (F) Weight: 142 lbs 04/30/2013 Blood Pressure 1: 140/80 Code : 8480-6 BMI: 27.0 Code : 60251-9 Heart Rate 1 : 73 bpm Height: 5'1" SpO2: 93% Temperature: 37.3 (C) / 99.1 (F) Weight: 143 lbs 04/16/2013 Blood Pressure 1: 100/64 Code : 8480-6 BMI: 27.2 Code : 11757-9 Heart Rate 1 : 80 bpm Height: 5'1" SpO2: 97% Temperature: 37.4 (C) / 99.3 (F) Weight: 144 lbs 03/10/2013 Blood Pressure 1: 132/82 Code : 8480-6 BMI: 27.2 Code : 56438-0 Heart Rate 1 : 80 bpm Height: 5'1" Weight: 144 lbs 12/08/2012 Blood Pressure 1: 144/80 Code : 8480-6 Heart Rate 1: 76 bpm Weight: 12/02/2012 Blood Pressure 1: 118/66 Code : 8480-6 BMI: 27.8 Code : 26170-0 Heart Rate 1 : 88 bpm Height: 5'1" Weight: 147 lbs 10/08/2012 Blood Pressure 1: 116/64 Code : 8480-6 BMI: 27.8 Code : 33730-4 Heart Rate 1 : 80 bpm Height: 5'1" Weight: 147 lbs 08/27/2012 Blood Pressure 1: 122/78 Code : 8480-6 BMI: 28.3 Code : 53874-3 Heart Rate 1 : 84 bpm Height: 5'1" Weight: 150 lbs 07/09/2012 Blood Pressure 1: 136/88 Code : 8480-6 Heart Rate 1: 84 bpm Weight: 150 lbs 05/19/2012 Blood Pressure 1: 124/74 Code : 8480-6 Heart Rate 1: 72 bpm Respiratory Rate : 16 bpm Weight: 152 lbs 04/28/2012 Blood Pressure 1: 130/80 Code : 8480-6 BMI: 29.1 Code : 02764-4 Heart Rate 1 : 56 bpm Height: [...] data Encounters Encounter Performer Location Codes Date ([id number]) [id number] EST. PATIENT, LEVEL IV Diagnosis: Essential (primary) hypertension[ICD10: I10] Diagnosis: Unspecified dementia with behavioral disturbance[ICD10: F03.91] Diagnosis: Pain in left hip[ICD10: M25.552] Diagnosis: Unsteadiness on feet[ICD10: R26.81] Diagnosis: Vitamin D deficiency, unspecified[ICD10: E55.9] Diagnosis: Encounter for therapeutic drug level monitoring[ICD10: Z51.81] Katy Gillis MD, [facility] CPT-4: 62205 02/14/2018 ([id number]) Miscellaneous no charge Diagnosis: Abnormal weight loss[ICD10: R63.4] Sarah Gillis MD, [facility] CPT-4: 46109 12/09/2017 [id number] EST. 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 PATIENT, LEVEL IV Diagnosis: Essential (primary) hypertension[ICD10: I10] Diagnosis: Urinary tract infection, site not specified[ICD10: N39.0] Diagnosis: Mixed hyperlipidemia[ICD10: E78.2] Sarah Gillis MD, [facility] CPT-4: 51645 01/08/2017 81603 EST. 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 PATIENT, LEVEL IV Diagnosis: Essential (primary) hypertension[ICD10: I10] Diagnosis: Mixed hyperlipidemia[ICD10: E78.2] Diagnosis: Actinic keratosis[ICD10: L57.0] Sarah Gillis MD, [facility] CPT- 4: 66035 11/07/2016 ([id number]) 99112 EST. PATIENT, LEVEL IV Diagnosis: Essential (primary) hypertension[ICD10: I10] Diagnosis: Mixed hyperlipidemia[ICD10: E78.2] Sarah Gillis MD, [facility] CPT-4: 01577 07/26/2016 ([id number]) 61717 EST. PATIENT, LEVEL IV Diagnosis: Essential (primary) hypertension[ICD10: I10] Diagnosis: Other senior care (current) drug therapy[ICD10: Z79.899] Diagnosis: Encounter for therapeutic drug level monitoring[ICD10: Z51.81] Sarah Gillis MD, [facility] CPT-4: 73249 04/25/2016 ([id number]) [id number] EST. PATIENT, LEVEL IV Diagnosis: Essential (primary) hypertension[ICD10: I10] Diagnosis: Cervicalgia[ICD10: M54.2] Diagnosis: Cervical disc disorder, unspecified, unspecified cervical region[ ICD10: M50.90] Sarah Gillis MD, [facility] CPT-4: 95020 10/04/2015 ([id number]) 52873 EST. PATIENT, LEVEL IV Diagnosis: Encounter for therapeutic drug level monitoring[ICD10: Z51.81] Diagnosis: Mixed hyperlipidemia[ICD10: E78.2] Diagnosis: Essential (primary) hypertension[ICD10: I10] Diagnosis: Localized edema[ICD10: R60.0] Sarah Gillis MD, [facility] CPT- 4: 20664 06/29/2015 ([id number]) 36125 EST. PATIENT, LEVEL IV Diagnosis: ESSENTIAL HYPERTENSION[ICD9: 401.9] Diagnosis: Osteoarthritis[ICD9: 715.90] Diagnosis: Left hip pain[ICD9: 719.45] Diagnosis: EDEMA[ICD9: 782.3] Diagnosis: ENCNTR LONG-ANTICOAG USE[ICD9: V58.61] Sarah Gillis MD, [facility] CPT-4: 47285 02/17/2015 [id number]) 23000 EST. PATIENT, LEVEL IV Diagnosis: ESSENTIAL HYPERTENSION[ICD9: 401.9] Diagnosis: Osteoarthritis[ICD9: 715.90] Diagnosis: EDEMA[ICD9: 782.3] Diagnosis: ENCNTR LONG-ANTICOAG USE[ICD9: V58.61] Diagnosis: Left hip pain[ICD9: 719.45] Katy Gillis MD, [facility] CPT-4: 51348 02/07/2015 [id number]) [id number] EST. PATIENT, LEVEL IV Diagnosis: ESSENTIAL HYPERTENSION[ICD9: 401.9] Diagnosis: Osteoarthritis[ICD9: 715.90] Diagnosis: Hip pain[ICD9: 719.45] Sarah Gillis MD, [facility] CPT-4: 55328 03/30/2014 ([id number]) 62761 EST. PATIENT, LEVEL III Diagnosis: ESSENTIAL HYPERTENSION[ICD9: 401.9] Diagnosis: Anticoagulant long-term use[ICD9: V58.61] Diagnosis: SCIATICA[ICD9: 724.3] Sarah Gillis MD, [facility] CPT-4: 42582 12/24/2013 ([id number]) 78318 EST. PATIENT, LEVEL III Diagnosis: Sacroiliitis[ICD9: 720.2] Diagnosis: SCIATICA[ICD9: 724.3] Sarah Gillis MD, [facility] CPT-4: 28874 12/01/2013 ([id number]) 46496 EST. PATIENT, LEVEL III Diagnosis: EDEMA[ICD9: 782.3] Diagnosis: LONG-TERM USE ANTICOAGUL[ICD9: V58.61] Sarah Gillis MD, [facility] CPT-4: 21597 11/27/2013 ([id number]) 26973 EST. PATIENT, LEVEL III Diagnosis: ESSENTIAL HYPERTENSION[SNOMED: 87356187] Sarah Gillis MD [facility] CPT-4: 75414 08/27/2013 ([id number]) 99580 EST. PATIENT, LEVEL III Diagnosis: Acute bronchitis[ICD9: 466.0] Diagnosis: COUGH[ICD9: 786.2] Sarah Gillis MD [facility] CPT-4: 83103 05/20/2013 ([id number]) 19816 EST. PATIENT, LEVEL III Diagnosis: ACUTE BRONCHITIS[ICD9: 466.0] Diagnosis: Memory loss[ICD9: 780.93] Sarah Gillis MD [facility] CPT-4: 99929 04/30/2013 ([id number]) 37994 EST. PATIENT, LEVEL III Diagnosis: ACUTE BRONCHITIS[ICD9: 466.0] Diagnosis: Cough[ICD9: 786.2] Sarah Gillis MD [facility] CPT-4: 92226 04/16/2013 ([id number]) 56162 EST. PATIENT, LEVEL III Diagnosis: ESSENTIAL HYPERTENSION[SNOMED: 49487405] Sarah Gillis MD [facility] CPT-4: 91651 03/10/2013 ([id number]) Miscellaneous no charge Diagnosis: BLISTER FOOT/TOE[ICD9: 917.2] Sarah Gillis MD, [facility] CPT- 4: 61312 12/08/2012 ([id number]) 14592 EST. PATIENT, LEVEL III Diagnosis: BLISTER FOOT/TOE[ICD9: 917.2] Diagnosis: CELLULITIS OF FOOT[ICD9: 682.7] Diagnosis: Osteoarthritis[ICD9: 715.90] Sarah Gillis MD, [facility] CPT- 4: 28464 12/02/2012 ([id number]) 85830 EST. PATIENT, LEVEL III Diagnosis: ESSENTIAL HYPERTENSION[SNOMED: 85051350] Sarah Gillis MD, [facility] CPT-4: 19849 10/08/2012 ([id number]) 02440 EST. PATIENT, LEVEL III Diagnosis: Bruising[ICD9: 924.9] Diagnosis: ENCNTR LONG-ANTICOAG USE[ICD9: V58.61] [facility] CPT-4: 51245 08/27/2012 ([id number]) 08264 EST. PATIENT, LEVEL III Diagnosis: ESSENTIAL HYPERTENSION[SNOMED: 05817075] Diagnosis: Sacroiliitis[ICD9: 720.2] [facility] CPT-4: 69883 07/09/2012 ([id number]) 98449 EST. 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 11/14/2017 Appointment: Mary Gonzalez WPtel: [id number] (30 min) Complex 11/14/2017 Patient Education: Patient [...] effectiveness. 08/13/2017 [id number] 08/13/2017 Patient Education: [...] for effectiveness. 05/21/2017 Appointment: Mary Gonzalez WPtel: [id number] (30 min) Complex 05/21/2017 Patient Education: Patient [...] effectiveness. 05/07/2017 Appointment: Mary Gonzalez WPtel: [phone] [phone] (30 min) Complex 05/07/2017 Patient Education: Patient Medication Summary Completed 05/07/2017 Appointment: Sarah Gillis WPtel: [phone] (15 min) Moderate 02/05/2017 Visit Plan: Hypertension [...] weeks 01/08/2017 Appointment: Sarah Gillis WPtel: [phone] [phone] (15 min) Moderate 01/08/2017 Patient Education: Patient [...] effectiveness. 01/07/2017 [phone] ([facility]) Simple 01/07/2017 Patient Education: [...] medications. 11/07/2016 App[facility]ment: [phone] ([facility]) Moderate 11/07/2016 Patient Education: Patient Medication Summary Completed 11/07/2016 Appointment: [facility] Gillis [phone] ([place] min) Moderate 10/24/2016 Visit Plan: Hypertension [...] to medications. 07/26/2016 Appointment: Sarah Gillis WPtel: [phone] [phone] (15 min) Moderate 07/26/2016 Patient Education: Patient [...] supportive care. 04/25/2016 Appointment: Sarah Gillis WPtel: [facility] (15 min) Moderate 04/25/2016 Patient Education: Patient Medication Summary Completed 04/25/2016 Appointment: Sarah Gillis WPtel: [facility] ([facility] min) Complex 04/03/2016 Visit Plan: Hypertension [...] Completed 10/04/2015 Appointment: Sarah Gillis [phone] ([place] min) Complex 09/28/2015 Patient Education: Patient [...] symptoms. 06/29/2015 Appointment: [facility] Gillis [phone] ([place] min) Complex 06/29/2015 Patient Education: Patient [...] Hypertension Completed 02/07/2015 Appointment: Sarah Gillis WPtel: [phone] [phone] Follow up 06/28/2014 Appointment: Injection 04/23/2014 Patient [...] DAILY. 03/30/2014 Appointment: Sarah Gillis WPtel: [phone] [phone] Follow up 03/30/2014 Patient Education: Patient Medication [...] home. 12/24/2013 Appointment: Sarah Gillis WPtel: [phone] [phone] Follow up 12/24/2013 Patient Education: Patient Medication [...] 3.5. 11/27/2013 Appointment: Katy Shore WPtel: [phone] [phone] [place] [address] 11/27/2013 Patient Education: Patient Medication Summary Completed 11/27/2013 Visit Plan: Hypertension - well controlled - continue with current medications, continue with no added salt diet. Pt has been encouraged to exercise daily. The pt has been advised to call the office if there are any acute concerns about change in blood pressure readings at home. 08/27/2013 Appointment: Sarah Gillis WPtel: [phone] [phone] Follow up 08/27/2013 Patient Education: Patient Medication [...] of inflammation 05/20/2013 Appointment: Sarah Gillis WPtel: [phone] [phone] Sick 05/20/2013 Patient Education: Patient Medication Summary [...] at home. 03/10/2013 Appointment: Sarah Gillis WPtel: [facility]5 [phone] Follow up 03/10/2013 Patient Education: Patient Medication Summary Completed 03/10/2013 Patient Education: Hypertension Completed 03/10/2013 Appointment: Sarah Gillis WPtel: [address] [place], [place] [id number] Follow up 12/17/2012 Visit Plan: Wound care to lesion -neosporin, call if worsening symptoms - finish antibotics 12/08/2012 Appointment: Sarah Gillis WPtel: [address] [place], [place] [phone] [place] Other 12/08/2012 Patient Education: Patient Medication [...] pain symptoms. 12/02/2012 Appointment: Sarah Gillis WPtel: [address] [place], [place] [phone] [place] Follow up 12/02/2012 Patient Education: Patient Medication [...] injection today. 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 Patient and verbalized understanding of plan. 08/27/2012 Appointment: Katy Shore WPtel: [phone] Other 08/27/2012 Patient Education: Patient Medication Summary Completed 08/27/2012 Appointment: Sarah Gillis WPtel: [phone] [phone] Follow up 07/14/2012 Visit Plan: Hypertension - [...] they worsen. 07/09/2012 Appointment: Sarah Gillis WPtel: [phone] [phone] Other 07/09/2012 Patient Education: Patient Medication Summary [...] times daily. 05/19/2012 Appointment: Sarah Gillis WPtel: [facility]5 [phone] Follow up 05/19/2012 Patient Education: Hypertension Completed 05/19/2012 Patient Education: Patient Medication Summary Completed 05/19/2012 Appointment: Sarah Gillis WPtel: [phone] [phone] Lab Draw 05/13/2012 Patient Education: Patient Medication [...] pain symptoms. 04/28/2012 Appointment: Sarah Gillis WPtel: [facility]5 [facility] New Patient 04/28/2012 Patient Education: Patient Medication Summary Completed 04/28/2012 Patient Education: High Blood Pressure: Essential Hypertension Completed 2011 Appointment: Sarah Gillis WPtel: [facility]5 [phone] [facility]/ New Patient 10/15/2011 Instructions Comment . [...] is showing more symptoms of memory loss. the coumadin 4mg is Saturday/Saturday/Saturday/Saturday the coumadin [...] start on depakote 125mg at hs . Sacroilitis-sciatica - back exercises discussed with the patient, pt to continue with antiinflammatories. Pt is to call if the symptoms do not improve or if they worsen. Offered injection today in the office-patient declines but will call if pain worsens . Hypertension - well controlled - continue [...] assure normal liver response to medications. . Wound care to lesion -neosporin, call [...] pain - pt given injection today. . Edema - pt has been advised [...] tylenol for break through pain symptoms. . Left leg ecchymosis - improving - [...] change in blood pressure readings at home. CHANGE DRESSING ON SATURDAY AND RETURN TO [...] and are not interested in this. . Esophageal Reflux - the patient has [...] to closely monitor the medications for effectiveness. Hip pain - pt to use VOLTAREN [...] to use VOLTAREN GEL THREE TIMES DAILY. GET TIGER BALM FOR YOUR HIP AND [...] for INR is between 2.0 and 3.5. Check INR today-we'll call you with the results tomorrow. Keep your regular follow up appointment in September. Call with any questions or concerns. . Abnormal bruising-senior care coumadin therapy-plan to check PT/INR today in [...]
--- OUTSIDE RECORDS SUMMARY | 2018-08-26 11:06 | XMS REPORT | CCD ---
Author Author Sarah Gillis Organization Sarah Gillis MD, [facility] Address [address] [place] [address] Phone Care Team Providers Care Dog Pound Attendant Name Role Phone PP Unavailable CCM Unavailable Summary Purpose Interface Exchange Insurance Providers Payer name Policy type / Coverage type Covered libertarian ID Effective Begin Date Effective End Date WPS Medicare Part B Medicare Part B [id number] 2013 Unknown [facility] Medicare Part B [id number] 2013 Unknown Family history Brother Diagnosis Age [...] 2 1 in 2010, 1 lives in [place] 11/07/2016 Marital status Unknown 04/28/2012 Employment Unknown Retired 04/28/[address]: 8138830 Quit over 10 years ago 04/28/[address]: 226145234 Never drinks alcohol 04/28/2012 Allergies, Adverse Reactions, Alerts Substance Reaction Codes Entered Date Inactivated Date Status CODEINE drowsiness RxNorm: 2670 04/16/2013 No Inactive Date Active Past Medical History Illness Codes Condition Status Onset Date Resolved Date Dementia in other diseases classified elsewhere without behavioral disturbance ICD-9: 294.10 ICD-10: F02.80 Active 05/21/2017 Unknown Pain in left hip ICD-9 : 719.45 ICD-10: M25.552 Active 05/21/2017 Unknown Gastro-esophageal reflux disease without esophagitis ICD-9: 530.81 ICD-10: K21.9 Active 05/07/2017 Unknown Essential (primary) hypertension ICD-9: 401.9 ICD-10: I10 Active 12/24/2013 Unknown Mixed hyperlipidemia ICD-9: 272.2 ICD-10: E78.2 Active 01/08/2017 Unknown Urinary tract infection, site not specified ICD-9: 599.0 ICD-10: N39.0 Active 01/08/2017 Unknown Dysuria ICD-9: 788.1 ICD-10: R30.0 Active 01/07/2017 Unknown Other chcf (current) drug therapy ICD-9: V58.69 ICD-10: Z79.899 Active 04/30/2012 Unknown Unspecified dementia with behavioral disturbance ICD-9: 294.21 ICD-10: F03.91 Active 01/07/2017 Unknown Actinic keratosis ICD- 9: 702.0 ICD-10: L57.0 Active 11/07/2016 Unknown Essential (primary) hypertension ICD-9: 401.1 ICD-10: I10 Active 04/24/2016 Unknown Mixed hyperlipidemia ICD-9: 272.4 ICD-10: E78.2 Active 04/30/2012 Unknown Encounter for therapeutic drug level monitoring ICD-9: V58.61 ICD-10: Z51.81 Active 12/24/2013 Unknown Cervical disc disorder, unspecified, unspecified cervical region ICD-9: 722.91 ICD-10: M50.90 Active 10/03/2015 Unknown Cervicalgia ICD-9: 723.1 ICD-10: M54.2 Active 10/03/2015 Unknown Anemia, unspecified ICD-9: 285.9 ICD-10: D64.9 Active 07/31/2015 Unknown Localized edema ICD-9 : 782.3 ICD-10: R60.0 Active 11/27/2013 Unknown Encounter for immunization ICD-9: V04.81 ICD-10: [...] disturbance ICD-9: 294.10 ICD-10: F02.80 05/21/2017 Active Pain in left hip ICD-9 : 719.45 ICD-10: M25.552 05/21/2017 Active Gastro-esophageal reflux disease without esophagitis ICD-9: 530.81 ICD-10: K21.9 05/07/2017 Active Essential (primary) hypertension ICD-9: 401.9 ICD-10: I10 12/24/2013 Active Mixed hyperlipidemia ICD-9: 272.2 ICD-10: E78.2 01/08/2017 Active Urinary tract infection, site not specified ICD-9: 599.0 ICD-10: N39.0 01/08/2017 Active Dysuria ICD-9: 788.1 ICD-10: R30.0 01/07/2017 Active Other chcf (current) drug therapy ICD-9: V58.69 ICD-10: Z79.899 04/30/2012 Active Unspecified dementia with behavioral disturbance ICD-9: 294.21 ICD-10: F03.91 01/07/2017 Active Actinic keratosis ICD- 9: 702.0 ICD-10: L57.0 11/07/2016 Active Essential (primary) hypertension ICD-9: 401.1 ICD-10: I10 04/24/2016 Active Mixed hyperlipidemia ICD-9: 272.4 ICD-10: E78.2 04/30/2012 Active Encounter for therapeutic drug level monitoring ICD-9: V58.61 ICD-10: Z51.81 12/24/2013 Active Cervical disc disorder, unspecified, unspecified cervical region ICD-9: 722.91 ICD-10: M50.90 10/03/2015 Active Cervicalgia ICD-9: 723.1 ICD-10: M54.2 10/03/2015 Active Anemia, unspecified ICD-9: 285.9 ICD-10: D64.9 07/31/2015 Active Localized edema ICD-9 : 782.3 ICD-10: R60.0 11/27/2013 Active Encounter for immunization ICD-9: V04.81 ICD-10: [...] Fill Instructions Coumadin 5 mg tablet RxNorm: 774939 Tablet(s) TAKE 1 TABLET BY MOUTH DAILY 06/24/2017 12/20/2017 Active pravastatin 40 mg tablet RxNorm: 919375 Tablet(s) TAKE ONE TABLET BY MOUTH EVERY DAY 05/27/2017 04/21/2018 Active Voltaren 1 % topical gel RxNorm: 010243 4 Gram(s) TOP QID 05/2106/19/2017 Inactive Depakote 125 mg tablet,delayed release RxNorm: 0522453 Tablet(s) 1 Tablet(s) PO QPM 04/22/2017 10/18/2017 Active hydrochlorothiazide 12.5 mg tablet RxNorm: 030533 Tablet(s) 1 Tablet(s) PO daily 03/22/2017 10/17/2017 Active amlodipine 5 mg tablet RxNorm: 304733 1 Tablet(s) PO daily 02/21/2018 Active Generic For:NORVASC 5 MG TABLET REFILL REQUEST 08/27/2016 10:47:17 AM cephalexin 500 mg tablet RxNorm: 870943 1 Tablet(s) PO TID 01/17/2017 Inactive cephalexin 500 mg tablet RxNorm: 502631 1 Tablet(s) PO TID 01/07/2017 Inactive Coumadin 5 mg tablet RxNorm: 107049 TAKE 1 TABLET BY MOUTH DAILY EXCEPT 1/2 TABLET ON SATURDAY AND Saturday12/26/2016 06/23/2017 Inactive Generic For:COUMADIN 5MG TAB 12/26/2016 9:17:49 AM N O T I C E Last quantity doesn't match original quantity Depakote 125 mg tablet,delayed release RxNorm: 2092182 Tablet(s) 1 Tablet(s) PO QPM 10/25/2016 04/21/2017 Inactive Coumadin 4 mg tablet RxNorm: 723424 Tablet(s) as doctor directed TAKE 1 TABLET 4 days per week 09/27/2016 04/24/2017 Inactive Generic For:COUMADIN 4MG TAB Coumadin 5 mg tablet RxNorm: 246493 TAKE 1 TABLET BY MOUTH DAILY EXCEPT 1/2 TABLET ON SATURDAY AND Saturday09/27/2016 12/25/2016 Inactive Generic For:COUMADIN 5MG TAB N O T I C E Last quantity doesn't match original quantity REFILL REQUEST 09/27/2016 9:43:11 AM amlodipine 5 mg tablet RxNorm: 788180 TAKE 1 TABLET BY MOUTH DAILY 08/27/2016 09/26/2016 Inactive Generic For:NORVASC 5 MG TABLET REFILL REQUEST 08/27/2016 10:47: 17 AM hydrochlorothiazide 12.5 mg tablet RxNorm: 669910 Tablet(s) 1 Tablet(s) PO daily 08/27/2016 03/21/2017 Inactive pravastatin 40 mg tablet RxNorm: 238272 Tablet(s) TAKE ONE TABLET BY MOUTH EVERY DAY 06/29/2016 05/24/2017 Inactive Coumadin 5 mg tablet RxNorm: 130229 1 Tablet(s) PO daily except 1/2 tab on , 06/14/2016 09/26/2016 Inactive Coumadin 5 mg tablet RxNorm: 486291 1 Tablet(s) PO daily except 1/2 tab on Tu, 06/12/2016 12/08/2016 Inactive Depakote 125 mg tablet,delayed release RxNorm: 7493659 1 Tablet(s) PO QPM 04/30/2016 10/24/2016 Inactive amlodipine 5 mg tablet RxNorm: 297101 Tablet(s) TAKE ONE TABLET BY MOUTH EVERY DAY 03/06/2016 08/26/2016 Inactive Generic For:NORVASC 5 MG TABLET 2015 9:02 :57 AM N O T I C E Last quantity doesn't match original quantity hydrochlorothiazide 12.5 mg tablet RxNorm: 792365 1 Tablet(s) PO daily 02/01/2016 08/26/2016 Inactive Coumadin 5 mg tablet RxNorm: 610941 1 Tablet(s) PO daily except 1/2 tab on , [facility] 12/26/2015 06/11/2016 Inactive Coumadin 5 mg tablet RxNorm: 407946 TAKE 1 TABLET BY MOUTH 3 DAYS PER WEEK ([facility], [facility]) 11/10/2015 12/25/2015 Inactive Generic For:COUMADIN 5MG TAB PT SAYS TAKING DIFFERENT NOW...WE NEED NEW RX PLEASE Coumadin 5 mg tablet RxNorm: 369083 Tablet(s) TAKE 1 TABLET BY MOUTH 5 DAYS PER WEEK Sun Sat11/04/201511/08 Inactive Generic For:COUMADIN 5MG TAB 10/04/2015 10:19:46 AM Depakote 125 mg tablet,delayed release RxNorm: 9179373 1 Tablet(s) PO QPM 11/04/2015 04/29/2016 Inactive Coumadin 5 mg tablet RxNorm: 300047 TAKE 1 TABLET BY MOUTH 3 DAYS PER WEEK ([facility]) 10/04/2015 11/03/2015 Inactive Generic For:COUMADIN 5MG TAB 10/04/2015 10:19:46 AM amlodipine 5 mg tablet RxNorm: 740273 Tablet(s) TAKE ONE TABLET BY MOUTH EVERY DAY 09/12/2015 03/05/2016 Inactive Generic For:NORVASC 5 MG TABLET 2015 9:02 :57 AM N O T I C E Last quantity doesn't match original quantity Coumadin 5 mg tablet RxNorm: 261993 1 Tablet(s) daily 201510/03/2015 Inactive Voltaren 1 % topical gel RxNorm: 344210 4 Gram(s) TOP QID 06/2904/24/2016 Inactive Depakote 125 mg tablet,delayed release RxNorm: 1880006 1 Tablet(s) PO QPM 06/29/2015 10/26/2015 Inactive hydrochlorothiazide 12.5 mg tablet RxNorm: 141276 1 Tablet(s) PO daily 06/29/2015 01/24/2016 Inactive Depakote 125 mg tablet,delayed release RxNorm: 9033902 1 Tablet(s) PO QPM 06/29/2015 06/28/2015 Inactive pravastatin 40 mg tablet RxNorm: 712946 Tablet(s) TAKE ONE TABLET BY MOUTH EVERY DAY 06/29/2015 06/28/2016 Inactive Generic For:*PRAVACHOL 40 MG TABLET Coumadin 5 mg tablet RxNorm: 143116 1 Tablet(s) PO TUE, THUR, SAT 3 days per week 05/09/2015 06/30/2015 Inactive take 4mg on sun sat amlodipine 5 mg tablet RxNorm: 264087 TAKE ONE TABLET BY MOUTH EVERY DAY 2015 09/06/2015 Inactive Generic For:NORVASC 5 MG TABLET 2015 9:02:57 AM N O T I C E Last quantity doesn't match original quantity Coumadin 5 mg tablet RxNorm: 797184 1 Tablet(s) PO TUE, THUR, SAT 3 days per week 11/15/2014 05/08/2015 Inactive take 4mg on sun sat Coumadin 4 mg tablet RxNorm: 613336 Tablet(s) as doctor directed TAKE 1 TABLET 4 days per week 11/15/2014 06/12/2015 Inactive Generic For:COUMADIN 4MG TAB Coumadin 5 mg tablet RxNorm: 484002 1 Tablet(s) PO TUE, THUR, SAT 10/27/2014 11/14/2014 Inactive TAKE 4MG ON SUN Sat [SAVINGS FOR NON-COVERED DRUGS -- BIN: [id number], PCN: ASPROD1, Group: XXXXX, ID# [id number], Questions: . THIS IS NOT INSURANCE.] Coumadin 5 mg tablet RxNorm: 369227 1 Tablet(s) PO TUE, THUR, SAT 10/27/2014 10/26/2014 Inactive amlodipine 5 mg tablet RxNorm: 325527 1 Tablet(s) PO daily 03/10/2015 Inactive Generic For:NORVASC 5 MG TABLET Generic For:NORVASC 5 MG TABLET 2012 8:54:53 AM pravastatin 40 mg tablet RxNorm: 934159 TAKE ONE TABLET BY MOUTH EVERY DAY 08/12/2014 06/28/2015 Inactive Generic For:*PRAVACHOL 40 MG TABLET Coumadin 4 mg tablet RxNorm: 348870 TAKE 1 TABLET BY MOUTH DAILY 08/12/2014 11/14/2014 Inactive Generic For:COUMADIN 4MG TAB pravastatin 40 mg tablet RxNorm: 147670 1 Tablet(s) PO daily TAKE ONE TABLET BY MOUTH EVERY DAY 08/11/2014 08/11/2014 Inactive Generic For:*PRAVACHOL 40 MG TABLET Generic For:*PRAVACHOL 40 MG TABLET Coumadin 4 mg tablet RxNorm: 372818 Tablet(s) PO TAKE ONE TABLET BY MOUTH EVERY DAY 08/11/2014 08/11/2014 Inactive Generic For:COUMADIN 4MG TAB Generic For: COUMADIN 4MG TAB [SAVINGS FOR NON-COVERED DRUGS -- BIN:[id number], PCN: ASPROD1, Group: XXXXX, ID# [id number], Questions: . THIS IS NOT INSURANCE.] amlodipine 5 mg tablet RxNorm: 479846 1 Tablet(s) daily 1 Tablet(s) PO daily TAKE ONE (1) TABLET BY MOUTH DAILY 05/12/2014 09/13/2014 Inactive Generic For:NORVASC 5 MG TABLET Generic For:NORVASC 5 MG TABLET 05/18/2013 8:54:53 AM amlodipine 5 mg tablet RxNorm: 294940 1 Tablet(s) PO daily TAKE ONE (1) TABLET BY MOUTH DAILY 01/14/2014 05/11/2014 Inactive Generic For:NORVASC 5 MG TABLET Generic For:NORVASC 5 MG TABLET 05/18/2013 8:54:53 AM Coumadin 4 mg tablet RxNorm: 491904 TAKE 1 TABLET BY MOUTH DAILY 01/14/2014 08/11/2014 Inactive Generic For:COUMADIN 4MG TAB amlodipine 5 mg tablet RxNorm: 966582 1 Tablet(s) PO daily TAKE ONE (1) TABLET BY MOUTH DAILY 01/14/2014 01/08/2015 Inactive Generic For:NORVASC 5 MG TABLET Generic For:NORVASC 5 MG TABLET 05/18/2013 8:54:53 AM amlodipine 5 mg tablet RxNorm: 707562 1 Tablet(s) PO daily TAKE ONE (1) TABLET BY MOUTH DAILY 09/18/2013 01/13/2014 Inactive Generic For:NORVASC 5 MG TABLET Generic For:NORVASC 5 MG TABLET 05/18/2013 8:54:53 AM Coumadin 4 mg tablet RxNorm: 763102 4mg daily Tablet(s) PO daily 07/30/2013 01/13/2014 Inactive Generic For:COUMADIN 4MG TAB pravastatin 40 mg tablet RxNorm: 053008 Tablet(s) PO TAKE ONE TABLET BY MOUTH EVERY DAY 07/20/2013 08/10/2014 Inactive Generic For:*PRAVACHOL 40 MG TABLET Generic For:*PRAVACHOL 40 MG TABLET Kenalog 40 mg/mL suspension for injection RxNorm: 0930077 Milliliter(s) Inj 05/20/2013 05/20/2013 Inactive azithromycin 500 mg tablet RxNorm: 1114867 1 Tablet(s) PO daily 05/20/2013 05/24/2013 Inactive amlodipine 5 mg tablet RxNorm: 437736 Tablet(s) PO TAKE ONE (1) TABLET BY MOUTH DAILY 05/18/2013 05/17/2013 Inactive Generic For:NORVASC 5 MG TABLET Generic For: NORVASC 5 MG TABLET 05/18/2013 8:54:53 AM amlodipine 5 mg tablet RxNorm: 885249 1 Tablet(s) PO daily TAKE ONE (1) TABLET BY MOUTH DAILY 05/18/2013 09/17/2013 Inactive Generic For:NORVASC 5 MG TABLET Generic For:NORVASC 5 MG TABLET 05/18/2013 8:54:53 AM Coumadin 4 mg tablet RxNorm: 044947 2mg wed 4 mg other Tablet(s) PO daily 04/28/2013 07/29/2013 Inactive Generic For:COUMADIN 4MG TAB Coumadin 4 mg tablet RxNorm: 841450 4mg daily Tablet(s) PO daily 04/16/2013 04/27/2013 Inactive Generic For:COUMADIN 4MG TAB Rocephin 500 mg solution for injection RxNorm: 576476 Inj 04/1604/16/2013 Inactive amoxicillin 500 mg tablet RxNorm: 362198 1 Tablet(s) PO TID 04/22/2013 Inactive Coumadin 4 mg tablet RxNorm: 717946 Tablet(s) PO TAKE ONE TABLET BY MOUTH EVERY DAY 04/16/2013 08/10/2014 Inactive Generic For:COUMADIN 4MG TAB Generic For: COUMADIN 4MG TAB Coumadin 4 mg tablet RxNorm: 598261 4mg daily Tablet(s) PO daily 03/18/2013 04/15/2013 Inactive Generic For:COUMADIN 4MG TAB Coumadin 4 mg tablet RxNorm: 295614 2mg on tuesdays, 4mg others Tablet(s) PO daily 03/10/2013 03/17/2013 Inactive Generic For:COUMADIN 4MG TAB Influenza Virus Vaccine 0.5 mL RxNorm: IM 03/10/2013 03/10/2013 Inactive amlodipine 5 mg tablet RxNorm: 350827 Tablet(s) PO TAKE ONE (1) TABLET BY MOUTH DAILY 01/22/2013 05/17/2013 Inactive Generic For:NORVASC 5 MG TABLET 01/22/2013 9: 42:13 AM cephalexin 500 mg tablet RxNorm: 052583 1 Tablet(s) PO TID 12/08/2012 Inactive amlodipine 5 mg tablet RxNorm: 678017 Tablet(s) PO TAKE ONE (1) TABLET BY MOUTH DAILY 09/22/2012 01/21/2013 Inactive Generic For:NORVASC 5 MG TABLET 09/20/2012 9: 10AM Nicole is wanting to last picker Saturday. Thank you! Coumadin 4 mg tablet RxNorm: 373543 1 Tablet(s) PO daily TAKE ONE TABLET BY MOUTH EVERY DAY 09/15/2012 03/09/2013 Inactive Generic For:COUMADIN 4MG TAB Coumadin 4 mg tablet RxNorm: 328483 Tablet(s) PO TAKE ONE TABLET BY MOUTH EVERY DAY 09/12/2012 09/14/2012 Inactive Generic For:COUMADIN 4MG TAB Coumadin 4 mg tablet RxNorm: 071346 1 Tablet(s) PO daily 201209/11/2012 Inactive new dose Coumadin 4 mg tablet RxNorm: 920541 1 Tablet(s) PO daily 201207/15/2012 Inactive Coumadin 3 mg tablet RxNorm: 357724 1 1/2 Tablet(s) PO daily 07/16/2012 Inactive pravastatin 40 mg tablet RxNorm: 224407 1 Tablet(s) PO daily 07/19/2013 Inactive Coumadin 3 mg tablet RxNorm: 636072 1 1/2 Tablet(s) PO daily 07/15/2012 Inactive amlodipine 5 mg tablet RxNorm: 160163 1 Tablet(s) PO daily 05/201209/21/2012 Inactive Voltaren 1 % Topical Gel RxNorm: 691920 4 Gram(s) TOP QID 04/2805/27/2012 Inactive Chikis 180 mg tablet RxNorm: 846820 1 Tablet(s) PO daily No Start Date Active hydrochlorothiazide 12.5 mg tablet RxNorm: 752800 1 Tablet(s) PO daily No Start Date 06/28/2015 Inactive Ziac 2.5 mg-6.25 mg tablet RxNorm: 566685 1 Tablet(s) PO daily No Start Date 09/15/2013 Inactive Coumadin 3 mg tablet RxNorm: 042130 Tablet(s) PO No Start Date 04/30/2012 Inactive pravastatin 40 mg tablet RxNorm: 577603 1 Tablet(s) PO daily No Start Date 06/25/2012 Inactive Medication Administered Medication Codes Instructions Start Date Status Kenalog 40 mg/mL suspension for injection RxNorm: 3236768 Milliliter 05/20/2013 No longer Active Rocephin 500 mg solution for injection RxNorm: 281137 04/16/2013 No longer Active Influenza Virus Vaccine 0.5 mL RxNorm: 03/10/2013 No longer Active Immunizations Vaccine Codes Date Status Influenza CVX: 141 03/25/2015 completed Influenza CVX: 141 04/23/2014 completed Influenza CVX: 141 03/10/2013 completed Influenza CVX: 141 04/28/2012 completed Pneumococcal (Adult) CVX: 33 03/17/2011 completed Assessments Condition Codes Effective Dates Dementia in other diseases classified elsewhere without behavioral disturbance ICD-10: F02.80 ICD-9: 294.10 05/21/2017 Pain in left hip ICD-10: M25.552 ICD-9: 719.45 05/21/2017 Gastro-esophageal reflux disease without esophagitis ICD-10 : K21.9 ICD-9: 530.81 05/07/2017 Mixed hyperlipidemia ICD-10: E78.2 ICD-9: 272.2 01/08/2017 Urinary tract infection, site not specified ICD-10: N39.0 ICD-9: 599.0 01/08/2017 Essential (primary) hypertension ICD-10: I10 ICD-9: 401.9 01/08/2017 Unspecified dementia with behavioral disturbance ICD-10: F03.91 ICD-9: 294.21 01/07/2017 Dysuria ICD-10: R30.0 ICD-9: 788.1 01/07/2017 Other chcf (current) drug therapy ICD-10: Z79.899 ICD-9: V58.69 01/07/2017 Essential (primary) hypertension ICD-10: I10 ICD-9: 401.1 11/07/2016 Mixed hyperlipidemia ICD-10: E78.2 ICD-9: 272.4 11/07/2016 Actinic keratosis ICD-10: L57.0 ICD-9: 702.0 11/07/2016 Encounter for therapeutic drug level monitoring ICD-10: Z51.81 ICD-9: V58.61 04/25/2016 Cervical disc disorder, unspecified, unspecified cervical region ICD-10: M50.90 ICD-9: 722.91 10/04/2015 Cervicalgia ICD-10: M54.2 ICD-9: 723.1 10/04/2015 Anemia, unspecified ICD-10: D64.9 ICD-9: 285.9 08/01/2015 Localized edema ICD-10: R60.0 ICD-9: 782.3 06/29/2015 Encounter for immunization ICD-10: Z23 ICD-9: V04.81 [...] Visit Effective Dates Notes lower leg pain 05/21/2017 arthralgia(s) 05/07/2017 skin [...] Code Item Item Code Result Date Pt Xnh1700 PT 31.5 seconds 07/10/2017 Pt Iea3692 INR 3.0 07/10/2017 Pt Rpy7644 Low Intensity - 1.5-2.0 07/10/2017 Pt Ybe4151 Mod intensity - 2.0-3.0 07/10/2017 Pt Bus4731 Hi intensity - 3.0-4.0 07/10/2017 Pt Uqr5886 PT 33.5 seconds 05/31/2017 Pt Fyq9789 INR 3.2 05/31/2017 Pt Jwz9871 Low Intensity - 1.5-2.0 05/31/2017 Pt Ihq3888 Mod intensity - 2.0-3.0 05/31/2017 Pt Lqz1434 Hi intensity - 3.0-4.0 05/31/2017 Pt Yxm7322 PT 32.2 seconds 05/02/2017 Pt Nfw2945 INR 3.1 05/02/2017 Pt Lco5236 Low Intensity - 1.5-2.0 05/02/2017 Pt Rns0876 Mod intensity - 2.0-3.0 05/02/2017 Pt Owz5775 Hi intensity - 3.0-4.0 05/02/2017 Pt Nzx6651 PT 26.8 seconds 03/28/2017 Pt Cow8283 INR 2.5 03/28/2017 Pt Nqi9275 Low Intensity - 1.5-2.0 03/28/2017 Pt Rba8748 Mod intensity - 2.0-3.0 03/28/2017 Pt Apx1115 Hi intensity - 3.0-4.0 03/28/2017 Pt Iow9482 PT 26.8 seconds 02/22/2017 Pt Eos2047 INR 2.5 02/22/2017 Pt Vza5965 Low Intensity - 1.5-2.0 02/22/2017 Pt Txt5843 Mod intensity - 2.0-3.0 02/22/2017 Pt Bfq5856 Hi intensity - 3.0-4.0 02/22/2017 Pt Vmc3880 PT 20.1 seconds 02/07/2017 Pt Fus3930 INR 1.7 02/07/2017 Pt Kho4669 Low Intensity - 1.5-2.0 02/07/2017 Pt Rjo5488 Mod intensity - 2.0-3.0 02/07/2017 Pt Oau4125 Hi intensity - 3.0-4.0 02/07/2017 Culture Urine [id number] URINE CULTURE SEE NOTES 01/10/2017 Culture Urine [id number] Continued Results 01/10/2017 Urine Culture Ucult Complete >100,000 col/ml aerobic growth sent to ref lab 01/08/2017 Valproic Acid (Depakote) S [id number] VALPROIC ACID 20.3 ug/mL 01/08/2017 Tsh Ord6 [...] 19.6 % 01/07/2017 Cbc With Differential Ord2 [place]% 10.5 % 01/07/2017 Cbc With Differential Ord2 [...] 0.97 K/ul 01/07/2017 Cbc With Differential Ord2 [place] ABS# 0.5 K/ul 01/07/2017 Cbc With Differential Ord2 Eos ABS# 0.1 K/ul 01/07/2017 Cbc With Differential Ord2 Baso ABS# 0.0 K/ul 01/07/2017 Comp Metabolic Fpn576 NA 142 mEq/L 01/07/2017 Comp Metabolic Pzx771 K 4.0 mEq/L 01/07/2017 Comp Metabolic Kih599 CL 105 mEq/L 01/07/2017 Comp Metabolic Kcd852 CO2 24.0 mEq/L 01/07/2017 Comp Metabolic Sqz227 ANION GAP 17 01/07/2017 Comp Metabolic Mij833 GLUCOSE 81 mg/dL 01/07/2017 Comp Metabolic Tmx357 Creat 0.8 mg/dL 01/07/2017 Comp Metabolic Kcv631 eGFR 72 ml/min/1.73m2 01/07/2017 Comp Metabolic Zlv086 BUN 12 mg/dL 01/07/2017 Comp Metabolic Lur359 B/C Ratio 15.0 Ratio 01/07/2017 Comp Metabolic Gka390 CALCIUM 9.0 mg/dL 01/07/2017 Comp Metabolic Weh562 ALK PHOS 59 U/L 01/07/2017 Comp Metabolic Lkj662 AST(SGOT) 18 U/L 01/07/2017 Comp Metabolic Xsi672 ALT(SGPT) 11 U/L 01/07/2017 Comp Metabolic Ion924 BILI T 0.6 mg/dL 01/07/2017 Comp Metabolic Tsw293 ALBUMIN 3.6 g/dL 01/07/2017 Comp Metabolic Buk653 TPRO 6.7 g/dL 01/07/2017 Comp Metabolic Esg565 GLOB 3.1 g/dL 01/07/2017 Comp Metabolic Sqq702 A/G Ratio 1.2 Ratio 01/07/2017 Comp Metabolic Qif201 Osmo 282 mOsmo 01/07/2017 Pt Zkv6860 PT 19.5 seconds 01/07/2017 Pt Jhg1535 INR 1.7 01/07/2017 Pt Adz9713 Low Intensity - 1.5-2.0 01/07/2017 Pt Ncg6011 Mod intensity - 2.0-3.0 01/07/2017 Pt Dey9078 Hi intensity - 3.0-4.0 01/07/2017 Pt Cjn1291 PT 22.5 seconds 12/06/2016 Pt Orn4727 INR 2.1 12/06/2016 Pt Pjo2542 Low Intensity - 1.5-2.0 12/06/2016 Pt Pas0729 Mod intensity - 2.0-3.0 12/06/2016 Pt Xoz2207 Hi intensity - 3.0-4.0 12/06/2016 Pt Qch0707 PT 20.8 seconds 10/29/2016 Pt Yym3053 INR 1.9 10/29/2016 Pt Xgs3628 Low Intensity - 1.5-2.0 10/29/2016 Pt May9292 Mod intensity - 2.0-3.0 10/29/2016 Pt Fqu9546 Hi intensity - 3.0-4.0 10/29/2016 Pt Qux8928 PT 21.9 seconds 09/24/2016 Pt Fbk3431 INR 2.0 09/24/2016 Pt Jfc2263 Low Intensity - 1.5-2.0 09/24/2016 Pt Pzm9893 Mod intensity - 2.0-3.0 09/24/2016 Pt Cba5593 Hi intensity - 3.0-4.0 09/24/2016 Pt Veg8767 PT 21.0 seconds 09/10/2016 Pt Wbx4259 INR 1.9 09/10/2016 Pt Cpl5840 Low Intensity - 1.5-2.0 09/10/2016 Pt Gmd8844 Mod intensity - 2.0-3.0 09/10/2016 Pt Eil4783 Hi intensity - 3.0-4.0 09/10/2016 Pt Atf7929 PT 22.8 seconds 08/20/2016 Pt Oge8249 INR 2.1 08/20/2016 Pt Lxn8359 Low Intensity - 1.5-2.0 08/20/2016 Pt Vnh7565 Mod intensity - 2.0-3.0 08/20/2016 Pt Dzn8076 Hi intensity - 3.0-4.0 08/20/2016 Pt Vgt0835 PT 19.2 seconds 08/02/2016 Pt Ayv9626 INR 1.7 08/02/2016 Pt Klt7954 Low Intensity - 1.5-2.0 08/02/2016 Pt Cyv8670 Mod intensity - 2.0-3.0 08/02/2016 Pt Pay8100 Hi intensity - 3.0-4.0 08/02/2016 Pt Whi8519 PT 31.2 seconds 07/12/2016 Pt Xgt6662 INR 3.2 07/12/2016 Pt Ctu6621 Low Intensity - 1.5-2.0 07/12/2016 Pt Wnx5029 Mod intensity - 2.0-3.0 07/12/2016 Pt Dkn6998 Hi intensity - 3.0-4.0 07/12/2016 Pt Wrj6215 PT 20.3 seconds 07/05/2016 Pt Pkl8706 INR 1.8 07/05/2016 Pt Gqy8456 Low Intensity - 1.5-2.0 07/05/2016 Pt Lbc2714 Mod intensity - 2.0-3.0 07/05/2016 Pt Oyq5812 Hi intensity - 3.0-4.0 07/05/2016 Pt Fhk0879 PT 22.2 seconds 05/29/2016 Pt Xge9869 INR 2.1 05/29/2016 Pt Sgr2290 Low Intensity - 1.5-2.0 05/29/2016 Pt Qef3865 Mod intensity - 2.0-3.0 05/29/2016 Pt Xea2288 Hi intensity - 3.0-4.0 05/29/2016 Tsh Ord6 hTSH II 3.38 uIU/mL 04/25/2016 Comp Metabolic Hgd415 NA 138 mEq/L 04/25/2016 Comp Metabolic Fmz606 K 4.1 mEq/L 04/25/2016 Comp Metabolic Ceh089 CL 105 mEq/L 04/25/2016 Comp Metabolic Hnh860 CO2 25.0 mEq/L 04/25/2016 Comp Metabolic Bys128 ANION GAP 12 04/25/2016 Comp Metabolic Zzd485 GLUCOSE 89 mg/dL 04/25/2016 Comp Metabolic Rtt613 Creat 0.8 mg/dL 04/25/2016 Comp Metabolic Spk266 eGFR 71 ml/min/1.73m2 04/25/2016 Comp Metabolic Gwr871 BUN 14 mg/dL 04/25/2016 Comp Metabolic Ane954 B/C Ratio 17.3 Ratio 04/25/2016 Comp Metabolic Gtu552 CALCIUM 9.0 mg/dL 04/25/2016 Comp Metabolic Ahg680 ALK PHOS 63 U/L 04/25/2016 Comp Metabolic Pfj812 AST(SGOT) 15 U/L 04/25/2016 Comp Metabolic Ebq843 ALT(SGPT) 9 U/L 04/25/2016 Comp Metabolic Unn630 BILI T 0.4 mg/dL 04/25/2016 Comp Metabolic Pei012 ALBUMIN 3.7 g/dL 04/25/2016 Comp Metabolic Ufl490 TPRO 6.4 g/dL 04/25/2016 Comp Metabolic Ajm823 GLOB 2.7 g/dL 04/25/2016 Comp Metabolic Zra261 A/G Ratio 1.4 Ratio 04/25/2016 Comp Metabolic Tsc389 Osmo 276 mOsmo 04/25/2016 Valproic Acid Ivd090 VALPROIC 17.0 ug/ml 04/25/2016 Cbc With Differential [...] 25.9 % 04/25/2016 Cbc With Differential Ord2 [place]% 12.4 % 04/25/2016 Cbc With Differential Ord2 MCH 32.5 pg 04/25/2016 Cbc With Differential Ord2 Eos% 2.2 % 04/25/2016 Cbc With Differential Ord2 MCHC 32.8 pg 04/25/2016 Cbc With Differential Ord2 PLT 203 K/ul 04/25/2016 Cbc With Differential Ord2 Baso% 0.2 % 04/25/2016 Cbc With Differential Ord2 RDW 14.1 % 04/25/2016 Cbc With Differential Ord2 Neut ABS# 2.95 K/ul 04/25/2016 Cbc With Differential Ord2 Lymph ABS# 1.29 K/ul 04/25/2016 Cbc With Differential Ord2 [place] ABS# 0.6 K/ul 04/25/2016 Cbc With Differential Ord2 Eos ABS# 0.1 K/ul 04/25/2016 Cbc With Differential Ord2 Baso ABS# 0.0 K/ul 04/25/2016 Pt [id number] PT 21.9 seconds 04/25/2016 Pt [id number] INR 2.0 04/25/2016 Pt Kib7930 Low Intensity - 1.5-2.0 04/25/2016 Pt Ohn7718 Mod intensity - 2.0-3.0 04/25/2016 Pt Jyk7867 Hi intensity - 3.0-4.0 04/25/2016 Pt Qqd5394 PT 24.4 seconds 03/27/2016 Pt Ops6434 INR 2.3 03/27/2016 Pt Dwk8919 Low Intensity - 1.5-2.0 03/27/2016 Pt Jgp3856 Mod intensity - 2.0-3.0 03/27/2016 Pt Hmw4733 Hi intensity - 3.0-4.0 03/27/2016 Pt Jhz4122 PT 22.7 seconds 02/24/2016 Pt Wjm7521 INR 2.1 02/24/2016 Pt Jfy1111 Low Intensity - 1.5-2.0 02/24/2016 Pt Mej0847 Mod intensity - 2.0-3.0 02/24/2016 Pt Qdm9174 Hi intensity - 3.0-4.0 02/24/2016 Pt Bua0594 PT 24.2 seconds 02/10/2016 Pt Ydg1512 INR 2.3 02/10/2016 Pt Kns2975 Low Intensity - 1.5-2.0 02/10/2016 Pt Uwx4847 Mod intensity - 2.0-3.0 02/10/2016 Pt Iqq5200 Hi intensity - 3.0-4.0 02/10/2016 Pt Xzs0184 PT 15.7 seconds 01/26/2016 Pt Gso6797 INR 1.3 01/26/2016 Pt Ebn7096 Low Intensity - 1.5-2.0 01/26/2016 Pt Bxd9517 Mod intensity - 2.0-3.0 01/26/2016 Pt Naf4825 Hi intensity - 3.0-4.0 01/26/2016 Pt Omj7854 PT 22.0 seconds 01/02/2016 Pt Nzb8928 INR 2.0 01/02/2016 Pt Prr5900 Low Intensity - 1.5-2.0 01/02/2016 Pt Poe6645 Mod intensity - 2.0-3.0 01/02/2016 Pt Opp7750 Hi intensity - 3.0-4.0 01/02/2016 Pt Lnb2356 PT 21.9 seconds 11/30/2015 Pt Sro3273 INR 2.0 11/30/2015 Pt Afy5157 Low Intensity - 1.5-2.0 11/30/2015 Pt Jrg2520 Mod intensity - 2.0-3.0 11/30/2015 Pt Wiu0680 Hi intensity - 3.0-4.0 11/30/2015 Pt Yli7120 PT 20.0 seconds 10/28/2015 Pt Ssn8036 INR 1.8 10/28/2015 Pt Qev1866 Low Intensity - 1.5-2.0 10/28/2015 Pt Wcy1856 Mod intensity - 2.0-3.0 10/28/2015 Pt Xod1612 Hi intensity - 3.0-4.0 10/28/2015 Cbc With [...] 32.2 pg 09/19/2015 Cbc With Differential Ord2 [place]% 11.4 % 09/19/2015 Cbc With Differential Ord2 Eos% 1.4 % 09/19/2015 Cbc With Differential Ord2 MCHC 33.9 pg 09/19/2015 Cbc With Differential Ord2 PLT 200 K/ul 09/19/2015 Cbc With Differential Ord2 Baso% 0.4 % 09/19/2015 Cbc With Differential Ord2 Neut ABS# 3.45 K/ul 09/19/2015 Cbc With Differential Ord2 RDW 13.7 % 09/19/2015 Cbc With Differential Ord2 Lymph ABS# 0.89 K/ul 09/19/2015 Cbc With Differential Ord2 [place] ABS# 0.6 K/ul 09/19/2015 Cbc With Differential Ord2 Eos ABS# 0.1 K/ul 09/19/2015 Cbc With Differential Ord2 Baso ABS# 0.0 K/ul 09/19/2015 Cbc With Differential Ord2 New Analyzer Notice Please note new ref ranges starting 06-29-2015 due to implemntation of new five part differential hematolgy analyzer. 09/19/2015 Pt Ftz1810 PT 28.3 seconds 09/19/2015 Pt Gqr5300 INR 2.8 09/19/2015 Pt Mfd8293 Low Intensity - 1.5-2.0 09/19/2015 Pt Tuw2921 Mod intensity - 2.0-3.0 09/19/2015 Pt Bkh6636 Hi intensity - 3.0-4.0 09/19/2015 Pt Ota1984 PT 22.5 seconds 08/12/2015 Pt Vps8031 INR 2.1 08/12/2015 Pt Prl3514 Low Intensity - 1.5-2.0 08/12/2015 Pt Qta6559 Mod intensity - 2.0-3.0 08/12/2015 Pt Kjt4382 Hi intensity - 3.0-4.0 08/12/2015 Pt Vmt6997 PT 34.1 seconds 07/29/2015 Pt Tlo8594 INR 3.5 07/29/2015 Pt Awe8067 Low Intensity - 1.5-2.0 07/29/2015 Pt Rof3109 Mod intensity - 2.0-3.0 07/29/2015 Pt Wos5644 Hi intensity - 3.0-4.0 07/29/2015 Tsh Ord6 hTSH II 2.48 uIU/mL 06/29/2015 Pt Hwi8452 PT 14.2 seconds 06/29/2015 Pt Tww0911 INR 1.1 06/29/2015 Pt Psk7689 Low Intensity - 1.5-2.0 06/29/2015 Pt Fyk8811 Mod intensity - 2.0-3.0 06/29/2015 Pt Qyj0250 Hi intensity - 3.0-4.0 06/29/2015 Comp Metabolic Pob193 NA 139 mEq/L 06/29/2015 Comp Metabolic Vxk488 K 3.8 mEq/L 06/29/2015 Comp Metabolic Prp156 CL 105 mEq/L 06/29/2015 Comp Metabolic Uqj110 CO2 21.0 mEq/L 06/29/2015 Comp Metabolic Dga791 ANION GAP 17 06/29/2015 Comp Metabolic Gwz558 GLUCOSE 78 mg/dL 06/29/2015 Comp Metabolic Gdv075 Creat 0.7 mg/dL 06/29/2015 Comp Metabolic Ewl480 eGFR 86 ml/min/1.73m2 06/29/2015 Comp Metabolic Djw314 BUN 7 mg/dL 06/29/2015 Comp Metabolic Rwf424 B/C Ratio 10.1 Ratio 06/29/2015 Comp Metabolic Wwq950 CALCIUM 9.3 mg/dL 06/29/2015 Comp Metabolic Lxa340 ALK PHOS 84 U/L 06/29/2015 Comp Metabolic Soh379 AST(SGOT) 17 U/L 06/29/2015 Comp Metabolic Cjo609 ALT(SGPT) 10 U/L 06/29/2015 Comp Metabolic Emm512 BILI T 1.0 mg/dL 06/29/2015 Comp Metabolic Pke155 ALBUMIN 4.1 g/dL 06/29/2015 Comp Metabolic Wjy951 TPRO 7.0 g/dL 06/29/2015 Comp Metabolic Dhw090 GLOB 2.9 g/dL 06/29/2015 Comp Metabolic Svh161 A/G Ratio 1.4 Ratio 06/29/2015 Comp Metabolic Orr530 Osmo 274 mOsmo 06/29/2015 CBC With Differential [...] Lipid Ord30 C/HDL 3.5 Ratio 06/29/2015 Pt Ckz9432 PT 25.9 seconds 05/16/2015 Pt Vtl2982 INR 2.5 05/16/2015 Pt Evu7618 Low Intensity - 1.5-2.0 05/16/2015 Pt Wmi9133 Mod intensity - 2.0-3.0 05/16/2015 Pt Tdi5614 Hi intensity - 3.0-4.0 05/16/2015 Pt Mey1061 PT 28.2 seconds 04/19/2015 Pt Pha6348 INR 2.7 04/19/2015 Pt Ycx8076 Low Intensity - 1.5-2.0 04/19/2015 Pt Rvb5444 Mod intensity - 2.0-3.0 04/19/2015 Pt Rbk6418 Hi intensity - 3.0-4.0 04/19/2015 Pt Jku2177 PT 29.7 seconds 02/17/2015 Pt Ryj0515 INR 2.9 02/17/2015 Pt Nfz1564 Low Intensity - 1.5-2.0 02/17/2015 Pt Tbu6388 Mod intensity - 2.0-3.0 02/17/2015 Pt Gwf6163 Hi intensity - 3.0-4.0 02/17/2015 Cbc With [...] Differential Ord2 RDW 14.5 % 02/07/2015 Pt Yvw1247 PT 26.8 seconds 02/07/2015 Pt Hnj7769 INR 2.6 02/07/2015 Pt Fdu3603 Low Intensity - 1.5-2.0 02/07/2015 Pt Ynw8935 Mod intensity - 2.0-3.0 02/07/2015 Pt Ani7171 Hi intensity - 3.0-4.0 02/07/2015 Tsh Ord6 hTSH II 2.36 uIU/mL 02/07/2015 Comp Metabolic Nie467 NA 136 mEq/L 02/07/2015 Comp Metabolic Bto668 K 4.2 mEq/L 02/07/2015 Comp Metabolic Tju296 CL 105 mEq/L 02/07/2015 Comp Metabolic Cae345 CO2 23.0 mEq/L 02/07/2015 Comp Metabolic Lfa856 ANION GAP 12 02/07/2015 Comp Metabolic Geh427 GLUCOSE 129 mg/dL 02/07/2015 Comp Metabolic Wod487 Creat 0.9 mg/dL 02/07/2015 Comp Metabolic Ggg783 eGFR 67 ml/min/1.73m2 02/07/2015 Comp Metabolic Ggd232 BUN 13 mg/dL 02/07/2015 Comp Metabolic Gzh009 B/C Ratio 15.1 Ratio 02/07/2015 Comp Metabolic Zxk700 CALCIUM 9.3 mg/dL 02/07/2015 Comp Metabolic Pdu238 ALK PHOS 79 U/L 02/07/2015 Comp Metabolic Nrf330 AST(SGOT) 16 U/L 02/07/2015 Comp Metabolic Fjz111 ALT(SGPT) 10 U/L 02/07/2015 Comp Metabolic Vqx302 BILI T 0.5 mg/dL 02/07/2015 Comp Metabolic Wrw454 ALBUMIN 4.0 g/dL 02/07/2015 Comp Metabolic Gfd303 TPRO 6.9 g/dL 02/07/2015 Comp Metabolic Erg210 GLOB 2.9 g/dL 02/07/2015 Comp Metabolic Vqu877 A/G Ratio 1.4 Ratio 02/07/2015 Comp Metabolic Lii215 Osmo 274 mOsmo 02/07/2015 Pt Wrh9182 PT 27.9 seconds 02/04/2015 Pt Fiq7831 INR 2.7 02/04/2015 Pt Yes4485 Low Intensity - 1.5-2.0 02/04/2015 Pt Jsw0033 Mod intensity - 2.0-3.0 02/04/2015 Pt Smn2814 Hi intensity - 3.0-4.0 02/04/2015 Pt Htc1062 PT 17.2 seconds 01/25/2015 Pt Avo0116 INR 1.4 01/25/2015 Pt Dux3907 Low Intensity - 1.5-2.0 01/25/2015 Pt Tbw8962 Mod intensity - 2.0-3.0 01/25/2015 Pt Kul2006 Hi intensity - 3.0-4.0 01/25/2015 Pt Cye0654 PT 20.7 seconds 12/23/2014 Pt Fpc1617 INR 1.8 12/23/2014 Pt Elq8550 Low Intensity - 1.5-2.0 12/23/2014 Pt Zho8133 Mod intensity - 2.0-3.0 12/23/2014 Pt Ugb4418 Hi intensity - 3.0-4.0 12/23/2014 PT/MC 8453948 PRO TIME 24.9 SEC 08/27/2012 PT/MC 5747133 INR MCMC 2.2 08/27/2012 PT/MC 1093695 PRO TIME 31.1 SEC 05/13/2012 PT/MC 7950147 INR MCMC 3.0 05/13/2012 GFR CALC 9850520 GFR AA >60 ML/MIN 04/30/2012 GFR CALC 5376686 GFR NON-AA >60 ML/MIN 04/30/2012 CHEM 14 20271220 AST 16 U/L 04/30/2012 CHEM 14 20271220 ALT 9 IU/L 04/30/2012 CHEM 14 20271220 BUN 7 MG/DL 04/30/2012 CHEM 14 6237522 ALBUMIN 4.0 GM/DL 04/30/2012 CHEM 14 3699126 CHLORIDE 107 MMOL/L 04/30/2012 CHEM 14 0981342 BILI TOT 0.7 MG/DL 04/30/2012 CHEM 14 9912240 ALK PHOS 68 U/L 04/30/2012 CHEM 14 6593972 SODIUM 142 MMOL/L 04/30/2012 CHEM 14 2246250 CREATININE 0.80 MG/DL 04/30/2012 CHEM 14 4283899 CALCIUM 9.5 MG/DL 04/30/2012 CHEM 14 7071611 POTASSIUM 3.7 MMOL/L 04/30/2012 CHEM 14 4604187 PROT TOT 7.1 GM/DL 04/30/2012 CHEM 14 7030712 GLUCOSE 88 MG/DL 04/30/2012 CHEM 14 9203138 BICARB 27 MMOL/L 04/30/2012 CHEM 14 1437620 ANION GAP 8 MEQ/L 04/30/2012 PT/MC 4261331 PRO TIME 18.5 SEC 04/30/2012 PT/MC 4970537 INR MCMC 1.5 04/30/2012 TSH 7017784 TSH 3.019 uIU/ML 04/30/2012 CBC 5089203 WBC 4.0 10e9/L 04/30/2012 CBC 4011569 RBC 4.94 10e12/L 04/30/2012 CBC 0011998 HGB 15.7 g/dL 04/30/2012 CBC 1397338 HCT DET 47.5 % 04/30/2012 CBC 7762372 MCV 96.2 fL 04/30/2012 CBC 6105459 MCH 31.8 pg 04/30/2012 CBC 4379402 MCHC 33.1 g/dL 04/30/2012 CBC 9074941 PLT 226 10e9/L 04/30/2012 CBC 8726994 MPV 10.9 fL 04/30/2012 CBC 0695844 KOBY % 64.8 % 04/30/2012 CBC 4502382 LY % 22.1 % 04/30/2012 CBC 5987804 MON % 9.5 % 04/30/2012 CBC 2704351 EOS % 3.3 % 04/30/2012 CBC 1968483 BASO % 0.3 % 04/30/2012 CBC 9298018 RDW 13.5 % 04/30/2012 CBC 6167826 ABS KOBY 2.59 10e9/L 04/30/2012 CBC 2226103 ABS LYMPH 0.88 10e9/L 04/30/2012 CBC 4494570 ABS MONO 0.38 10e9/L 04/30/2012 CBC 8529389 ABS EOS 0.13 10e9/L 04/30/2012 CBC 4810378 ABS BASO 0.01 10e9/L 04/30/2012 CBC 2492345 RDW-SD 46.5 fL 04/30/2012 LIPID GRP HDL TEST 47 MG/DL 04/30/2012 LIPID GRP TRIG 131 MG/DL 04/30/2012 LIPID GRP TEST LDL 145 MG/DL 04/30/2012 LIPID GRP CHOL 218 MG/DL 04/30/2012 LIPID GRP RCHOL/HDL 4.64 RATIO 04/30/2012 Review of Systems System Result Effective Dates Constitutional No recent illness 2016 Constitutional No [...] None Full Exam - General 1995 Ears/Nose/Throat otoscopic exam Overall: tympanic membranes clear [...] developed 12/01/2013 None Full Exam - General 1995 Constitutional [...] bilaterally 08/27/2013 None Full Exam - General 1995 Respiratory respiratory effort/rhythm Overall: no retractions 08/27/2013 None Full Exam - General 1995 Respiratory respiratory effort/rhythm Overall: normal rate 08/27/2013 None Full Exam - General 1995 Cardiovascular extremities Edema present: non-pitting 08/27/2013 None Full Exam - General 1995 Cardiovascular extremities Edema present: bilateral 08/27/2013 lower [...] Procedure Codes Date DESTRUCT PREMALG LESION CPT-4: 50700 11/07/2016 ADMIN INFLUENZA VIRUS VAC CPT-4: G0008 03/25/2015 FLU VACC 4 CHANTELLE 3 YRS PLUS IM Formatting Model/CDA Sections, Assigned to SNOMED CT: 90523026 CPT-4: 79313Nndqmkz 03/25/2015 ADMIN INFLUENZA VIRUS VAC Assigned to CPT-4: I7006Xbaamup 04/23/2014 FLU VAC NO PRSV 4 CHANTELLE 3 YRS+ CPT-4: 17596 04/23/2014 TRIAMCINOLONE ACET INJ NOS CPT-4: J3301 05/20/2013 THER/PROPH/DIAG INJ SC/IM CPT-4: 80442 05/20/2013 PRESCRIP TRANSMIT VIA ERX SY CPT-4: G8553 05/20/2013 URINALYSIS NONAUTO W/O SCOPE CPT-4: 55465 04/30/2013 THER/PROPH/DIAG INJ SC/IM CPT-4: 79619 04/16/2013 ROCEPHIN, PER 250 MG CPT-4: J0696 04/16/2013 PRESCRIP TRANSMIT VIA ERX SY CPT-4: G8553 04/16/2013 ADMIN INFLUENZA VIRUS VAC CPT-4: G0008 03/10/2013 FLULAVAL VACC, 3 YRS & >, IM CPT-4: Q2036 03/10/2013 PRESCRIP TRANSMIT VIA ERX SY CPT-4: G8553 12/02/2012 TRIAMCINOLONE ACET INJ NOS CPT-4: J3301 10/08/2012 INJ TRIGGER POINT 1/2 MUSCL CPT-4: 32995 10/08/2012 ROUTINE VENIPUNCTURE CPT-4: 43735 08/27/2012 DRAIN/INJECT JOINT/BURSA CPT-4: 04812 07/09/2012 TRIAMCINOLONE ACET INJ NOS CPT-4: J3301 07/09/2012 ROUTINE VENIPUNCTURE CPT-4: 54415 05/13/2012 ROUTINE VENIPUNCTURE CPT-4: 63521 04/30/2012 PRESCRIP TRANSMIT VIA ERX SY CPT-4: G8553 04/28/2012 Vital Signs Date Vital 05/21/2017 Blood Pressure 1: 132/80 Code : 8480-6 BMI: 26.1 Code : 19893-4 Heart Rate 1 : 61 bpm Height: 5'1" SpO2: 92% Weight: 138 lbs 05/07/2017 Blood Pressure 1: 128/70 Code : 8480-6 BMI: 25.9 Code : 48145-4 Heart Rate 1 : 72 bpm Height: 5'1" SpO2: 96% Weight: 137 lbs 01/08/2017 Blood Pressure 1: 136/82 Code : 8480-6 BMI: 25.5 Code : 69533-7 Heart Rate 1 : 75 bpm Height: 5'1" SpO2: 96% Weight: 135 lbs 01/07/2017 Blood Pressure 1: 142/86 Code : 8480-6 BMI: 25.5 Code : 14812-0 Heart Rate 1 : 75 bpm Height: 5'1" SpO2: 95% Weight: 135 lbs 11/07/2016 Blood Pressure 1: 120/80 Code : 8480-6 BMI: 25.5 Code : 53741-3 Heart Rate 1 : 83 bpm Height: 5'1" SpO2: 97% Weight: 135 lbs 07/26/2016 Blood Pressure 1: 140/80 Code : 8480-6 BMI: 27.0 Code : 37967-1 Heart Rate 1 : 68 bpm Height: 5'1" SpO2: 94% Weight: 143 lbs 04/25/2016 Blood Pressure 1: 128/82 Code : 8480-6 BMI: 28.2 Code : 54769-9 Heart Rate 1 : 71 bpm Height: 5'1" SpO2: 98% Weight: 149 lbs 10/04/2015 Blood Pressure 1: 140/80 Code : 8480-6 BMI: 27.8 Code : 64448-8 Heart Rate 1 : 77 bpm Height: 5'1" SpO2: 96% Weight: 147 lbs 06/29/2015 Blood Pressure 1: 134/70 Code : 8480-6 BMI: 26.8 Code : 38470-9 Heart Rate 1 : 68 bpm Height: 5'1" SpO2: 95% Weight: 142 lbs 02/17/2015 Blood Pressure 1: 128/80 Code : 8480-6 Heart Rate 1: 85 bpm Height: 5'1" SpO2: 96% Weight: 02/07/2015 Blood Pressure 1: 130/68 Code : 8480-6 BMI: 28.7 Code : 56687-4 Heart Rate 1 : 80 bpm Height: 5'1" SpO2: 95% Weight: 152 lbs 03/30/2014 Blood Pressure 1: 142/80 Code : 8480-6 BMI: 27.8 Code : 77541-9 Heart Rate 1 : 83 bpm Height: 5'1" SpO2: 95% Weight: 147 lbs 12/24/2013 Blood Pressure 1: 120/80 Code : 8480-6 BMI: 27.8 Code : 97799-2 Heart Rate 1 : 76 bpm Height: 5'1" Weight: 147 lbs 12/01/2013 Blood Pressure 1: 138/82 Code : 8480-6 BMI: 28.0 Code : 49083-4 Heart Rate 1 : 76 bpm Height: 5'1" SpO2: 91% Weight: 148 lbs 11/27/2013 Blood Pressure 1: 140/90 Code : 8480-6 BMI: 28.0 Code : 21892-2 Heart Rate 1 : 76 bpm Height: 5'1" SpO2: 95% Weight: 148 lbs 08/27/2013 Blood Pressure 1: 132/76 Code : 8480-6 BMI: 26.5 Code : 69651-7 Heart Rate 1 : 72 bpm Height: 5'1" Weight: 140 lbs 05/20/2013 Blood Pressure 1: 122/80 Code : 8480-6 BMI: 26.8 Code : 80506-7 Heart Rate 1 : 80 bpm Height: 5'1" SpO2: 98% Temperature: 37.3 (C) / 99.2 (F) Weight: 142 lbs 04/30/2013 Blood Pressure 1: 140/80 Code : 8480-6 BMI: 27.0 Code : 36241-1 Heart Rate 1 : 73 bpm Height: 5'1" SpO2: 93% Temperature: 37.3 (C) / 99.1 (F) Weight: 143 lbs 04/16/2013 Blood Pressure 1: 100/64 Code : 8480-6 BMI: 27.2 Code : 13959-8 Heart Rate 1 : 80 bpm Height: 5'1" SpO2: 97% Temperature: 37.4 (C) / 99.3 (F) Weight: 144 lbs 03/10/2013 Blood Pressure 1: 132/82 Code : 8480-6 BMI: 27.2 Code : 88339-2 Heart Rate 1 : 80 bpm Height: 5'1" Weight: 144 lbs 12/08/2012 Blood Pressure 1: 144/80 Code : 8480-6 Heart Rate 1: 76 bpm Weight: 12/02/2012 Blood Pressure 1: 118/66 Code : 8480-6 BMI: 27.8 Code : 20190-7 Heart Rate 1 : 88 bpm Height: 5'1" Weight: 147 lbs 10/08/2012 Blood Pressure 1: 116/64 Code : 8480-6 BMI: 27.8 Code : 67822-1 Heart Rate 1 : 80 bpm Height: 5'1" Weight: 147 lbs 08/27/2012 Blood Pressure 1: 122/78 Code : 8480-6 BMI: 28.3 Code : 58074-6 Heart Rate 1 : 84 bpm Height: 5'1" Weight: 150 lbs 07/09/2012 Blood Pressure 1: 136/88 Code : 8480-6 Heart Rate 1: 84 bpm Weight: 150 lbs 05/19/2012 Blood Pressure 1: 124/74 Code : 8480-6 Heart Rate 1: 72 bpm Respiratory Rate : 16 bpm Weight: 152 lbs 04/28/2012 Blood Pressure 1: 130/80 Code : 8480-6 BMI: 29.1 Code : 37037-9 Heart Rate 1 : 56 bpm Height: [...] data Encounters Encounter Performer Location Codes Date EST. 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 PATIENT, LEVEL IV Diagnosis: Essential (primary) hypertension[ICD10: I10] Diagnosis: Urinary tract infection, site not specified[ICD10: N39.0] Diagnosis: Mixed hyperlipidemia[ICD10: E78.2] Sarah Gillis MD, [facility] CPT-4: 84353 01/08/2017 07640 EST. PATIENT, LEVEL III Diagnosis: Dysuria[ICD10: R30.0] Diagnosis: Other chcf (current) drug therapy[ICD10: Z79.899] Diagnosis: Unspecified dementia with behavioral disturbance[ICD10: F03.91] Mary Gillis MD, [facility] CPT-4: 39499 01/07/2017 ([id number]) 54951 EST. PATIENT, LEVEL IV Diagnosis: Essential (primary) hypertension[ICD10: I10] Diagnosis: Mixed hyperlipidemia[ICD10: E78.2] Diagnosis: Actinic keratosis[ICD10: L57.0] Sarah Gillis MD [facility] CPT- 4: 45026 11/07/2016 ([id number]) 39530 EST. PATIENT, LEVEL IV Diagnosis: Essential (primary) hypertension[ICD10: I10] Diagnosis: Mixed hyperlipidemia[ICD10: E78.2] Sarah Gillis MD [facility] CPT-4: 81137 07/26/2016 ([id number]) 63962 EST. 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 PATIENT, LEVEL IV Diagnosis: Essential (primary) hypertension[ICD10: I10] Diagnosis: Cervicalgia[ICD10: M54.2] Diagnosis: Cervical disc disorder, unspecified, unspecified cervical region[ ICD10: M50.90] Sarah Gillis MD, [facility] CPT-4: 36885 10/04/2015 ([id number]) 96914 EST. PATIENT, LEVEL IV Diagnosis: Encounter for therapeutic drug level monitoring[ICD10: Z51.81] Diagnosis: Mixed hyperlipidemia[ICD10: E78.2] Diagnosis: Essential (primary) hypertension[ICD10: I10] Diagnosis: Localized edema[ICD10: R60.0] [facility] CPT- 4: 87220 06/29/2015 ([id number]) 77407 EST. PATIENT, LEVEL IV Diagnosis: ESSENTIAL HYPERTENSION[ICD9: 401.9] Diagnosis: Osteoarthritis[ICD9: 715.90] Diagnosis: Left hip pain[ICD9: 719.45] Diagnosis: EDEMA[ICD9: 782.3] Diagnosis: ENCNTR LONG-ANTICOAG USE[ICD9: V58.61] [facility] CPT-4: 65479 02/17/2015 ([id number]) 77128 EST. PATIENT, LEVEL IV Diagnosis: ESSENTIAL HYPERTENSION[ICD9: 401.9] Diagnosis: Osteoarthritis[ICD9: 715.90] Diagnosis: EDEMA[ICD9: 782.3] Diagnosis: ENCNTR LONG-ANTICOAG USE[ICD9: V58.61] Diagnosis: Left hip pain[ICD9: 719.45] Katy Gillis MD [facility] CPT-4: 78361 02/07/2015 ([id number]) 67188 EST. PATIENT, LEVEL IV Diagnosis: ESSENTIAL HYPERTENSION[ICD9: 401.9] Diagnosis: Osteoarthritis[ICD9: 715.90] Diagnosis: Hip pain[ICD9: 719.45] Sarah Gillis MD [facility] CPT-4: 25916 03/30/2014 ([id number]) 55545 EST. PATIENT, LEVEL III Diagnosis: ESSENTIAL HYPERTENSION[ICD9: 401.9] Diagnosis: Anticoagulant long-term use[ICD9: V58.61] Diagnosis: SCIATICA[ICD9: 724.3] Sarah Gillis MD, [facility] CPT-4: 96163 12/24/2013 ([id number]) 85304 EST. PATIENT, LEVEL III Diagnosis: Sacroiliitis[ICD9: 720.2] Diagnosis: SCIATICA[ICD9: 724.3] Sarah Gillis MD, [facility] CPT-4: 35271 12/01/2013 ([id number]) 19171 EST. PATIENT, LEVEL III Diagnosis: EDEMA[ICD9: 782.3] Diagnosis: LONG-TERM USE ANTICOAGUL[ICD9: V58.61] Sarah Gillis MD, [facility] CPT-4: 90160 11/27/2013 ([id number]) 41899 EST. PATIENT, LEVEL III Diagnosis: ESSENTIAL HYPERTENSION[SNOMED: 33512850] [facility] CPT-4: 60819 08/27/2013 ([id number]) 75858 EST. PATIENT, LEVEL III Diagnosis: Acute bronchitis[ICD9: 466.0] Diagnosis: COUGH[ICD9: 786.2] Sarah Gillis MD [facility] CPT-4: 46358 05/20/2013 ([id number]) 26982 EST. PATIENT, LEVEL III Diagnosis: ACUTE BRONCHITIS[ICD9: 466.0] Diagnosis: Memory loss[ICD9: 780.93] Sarah Gillis MD [facility] CPT-4: 27857 04/30/2013 ([id number]) 90376 EST. PATIENT, LEVEL III Diagnosis: ACUTE BRONCHITIS[ICD9: 466.0] Diagnosis: Cough[ICD9: 786.2] Sarah Gillis MD [facility] CPT-4: 02323 04/16/2013 ([id number]) 83681 EST. PATIENT, LEVEL III Diagnosis: ESSENTIAL HYPERTENSION[SNOMED: 30072770] Sarah Gillis MD [facility] CPT-4: 61176 03/10/2013 ([id number]) Miscellaneous no charge Diagnosis: BLISTER FOOT/TOE[ICD9: 917.2] Sarah Gillis MD [facility] CPT- 4: 02273 12/08/2012 ([id number]) 15721 EST. PATIENT, LEVEL III Diagnosis: BLISTER FOOT/TOE[ICD9: 917.2] Diagnosis: CELLULITIS OF FOOT[ICD9: 682.7] Diagnosis: Osteoarthritis[ICD9: 715.90] Sarah Gillis MD [facility] CPT- 4: 98372 12/02/2012 ([id number]) 41645 EST. PATIENT, LEVEL III Diagnosis: ESSENTIAL HYPERTENSION[SNOMED: 87384497] Sarah Gillis MD [facility] CPT-4: 43732 10/08/2012 ([id number]) 29707 EST. PATIENT, LEVEL III Diagnosis: Bruising[ICD9: 924.9] Diagnosis: ENCNTR LONG-ANTICOAG USE[ICD9: V58.61] Sarah Gillis MD [facility] CPT-4: 12772 08/27/2012 ([id number]) 28909 EST. PATIENT, LEVEL III Diagnosis: ESSENTIAL HYPERTENSION[SNOMED: 87723591] Diagnosis: Sacroiliitis[ICD9: 720.2] Sarah Gillis MD [facility] CPT-4: 85763 07/09/2012 ([id number]) 43994 EST. 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 05/21/2017 Appointment: Mary Gonzalez WPtel: [address] [place], [place] [address] (30 min) Complex 05/21/2017 Patient Education: Patient [...] for effectiveness. 05/07/2017 Appointment: Mary Gonzalez WPtel: [address] [place], [place] [address] [place] (30 min) Complex 05/07/2017 Patient Education: Patient Medication Summary Completed 05/07/2017 Appointment: Sarah Gillis WPtel: [phone] [facility] [place] (15 min) Moderate 02/05/2017 Visit Plan: Hypertension [...] 3 weeks 01/08/2017 Appointment: Sarah Gillis WPtel: [facility] [place] (15 min) Moderate 01/08/2017 Patient [...] effectiveness. 01/07/2017 Appointment: Mary Gonzalez WPtel: [phone] [facility] [place] (10 min) Simple 01/07/2017 Patient Education: [...] medications. 11/07/2016 Appointment: Sarah Gillis WPtel: [phone] [facility] (15 min) Moderate 11/07/2016 Patient Education: Patient Medication Summary Completed 11/07/2016 Appointment: Sarah Gillis WPtel: [phone] [facility] (15 min) Moderate 10/24/2016 Visit Plan: [...] medications. 07/26/2016 [facility]ment[phone] [place] ([place] min) Moderate 07/26/2016 Patient Education: [...] care. 04/25/2016 Appointment: Sarah Gillis WPtel: [phone] [facility] (15 min) Moderate 04/25/2016 Patient Education: Patient Medication Summary Completed 04/25/2016 Appointment: Sarah Gillis WPtel: [phone] [facility] (30 min) Complex 04/03/2016 Visit Plan: [...] Summary Completed 10/04/2015 Appointment: Sarah Gillis WPtel: [facility]5 [facility] (30 min) Complex 09/28/2015 Patient Education: [...] monitor symptoms. 06/29/2015 Appointment: Sarah Gillis WPtel: [facility] ([facility] min) [facility] 06/29/2015 Patient Education: Patient Medication Summary Completed [...] Completed 02/07/2015 Appointment: [phone] Follow up 06/28/2014 Appointment: Injection 04/23/2014 [...] TIMES DAILY. 03/30/2014 Appointment: Sarah Gillis WPtel: [facility]6 [facility] Follow up 03/30/2014 Patient Education: Patient [...] home. 12/24/2013 Appointment: Sarah Gillis WPtel: [phone] [facility] Follow up 12/24/2013 Patient Education: Patient [...] and 3.5. 11/27/2013 Appointment: Katy Shore WPtel: [facility]5 [phone] [place] [address] Other 11/27/2013 Patient Education: Patient Medication Summary Completed 11/27/2013 Visit Plan: Hypertension - well controlled - continue with current medications, continue with no added salt diet. Pt has been encouraged to exercise daily. The pt has been advised to call the office if there are any acute concerns about change in blood pressure readings at home. 08/27/2013 Appointment: Sarah Gillis WPtel: [phone] [facility] Follow up 08/27/2013 Patient Education: Patient [...] of inflammation 05/20/2013 Appointment: Sarah Gillis WPtel: [facility]5 [facility] Sick 05/20/2013 Patient Education: Patient Medication [...] at home. 03/10/2013 Appointment: Sarah Gillis WPtel: [address] [place], [place] [phone] Follow up 03/10/2013 Patient Education: Patient Medication Summary Completed 03/10/2013 Patient Education: Hypertension Completed 03/10/2013 Appointment: Sarah Gillis WPtel: [address] [place], [place] [phone] Follow up 12/17/2012 Visit Plan: Wound care to lesion -neosporin, call if worsening symptoms - finish antibotics 12/08/2012 Appointment: Sarah Gillis WPtel: [address] [place], [place] [phone] Other 12/08/2012 Patient Education: Patient Medication Summary [...] pain symptoms. 12/02/2012 Appointment: Sarah Gillis WPtel: [facility]5 [facility] Follow up 12/02/2012 Patient Education: Patient [...] injection today. 10/08/2012 Appointment: Sarah Gillis WPtel: [address] [place], [place] [phone] Follow up 10/08/2012 Patient Education: Patient Medication Summary Completed 10/08/2012 Patient Education: Hypertension Completed 10/08/2012 Visit Plan: Abnormal bruising-chcf coumadin therapy- plan to check PT/INR today in the office and continue to monitor symptoms- instructed patient to call if bleeding/bruising continues or if she becomes weak , dizzy, light headed, etc. Patient and verbalized understanding of plan. 08/27/2012 Appointment: Katy Shore WPtel: [facility]5 [phone] [place] Other 08/27/2012 Patient Education: Patient Medication Summary Completed 08/27/2012 Appointment: Sarah Gillis WPtel: [address] [place], [place] [phone] Follow up 07/14/2012 Visit Plan: Hypertension - [...] they worsen. 07/09/2012 Appointment: Sarah Gillis WPtel: [facility]4 [facility] Other 07/09/2012 Patient Education: Patient Medication [...] times daily. 05/19/2012 Appointment: Sarah Gillis WPtel: [facility] [place] [phone] Follow up 05/19/2012 Patient Education: Hypertension Completed 05/19/2012 Patient Education: Patient Medication Summary Completed 05/19/2012 Appointment: Sarah Gillis WPtel: [facility]6 [facility] Lab Draw 05/13/2012 Patient Education: Patient [...] pain symptoms. 04/28/2012 Appointment: Sarah Gillis WPtel: [facility]9 [facility] New Patient 04/28/2012 Patient Education: Patient Medication Summary Completed 04/28/2012 Patient Education: High Blood Pressure: Essential Hypertension Completed 2011 [facility]: [facility] [phone] [facility] [facility] New Patient 10/15/2011 Instructions Comment . Hypertension - well controlled - continue [...] left ear -re-eval in 3 weeks . Sacroilitis-sciatica - back exercises discussed with [...] today for persistent symptoms of inflammation . Esophageal Reflux - the patient has [...] closely monitor the medications for effectiveness. . Bronchitis - acute case of bronchitis [...] not improve or if they worsen. . Edema - pt has been [...] change in blood pressure readings at home. Stop the bisoprolol/hctz and the hydrochlorothiazide. START [...] to use VOLTAREN GEL THREE TIMES DAILY. the coumadin 4mg is Saturday/Saturday/Saturday/Saturday the coumadin [...] not want medication - will monitor symptoms. Check INR today-we'll call you with the results tomorrow. Keep your regular follow up appointment in September. Call with any questions or concerns. . Abnormal bruising-chcf coumadin therapy-plan to check PT/INR today in the office and continue to monitor symptoms-instructed patient to call if bleeding/bruising continues or if she becomes weak, dizzy, light headed, etc. Patient and verbalized understanding of plan. . Wound care to lesion -neosporin, call [...] change in blood pressure readings at home. GET TIGER BALM FOR YOUR HIP AND [...]
--- OUTSIDE RECORDS SUMMARY | 2018-08-26 11:06 | XMS REPORT | Continuity of Care Document ---
Author Author [facility] Organization [facility] Address Unknown Phone Unavailable Allergies There is no data. Medications There is no data. Problems Date Dx Coded Attending Type Code Diagnosis Diagnosed By 03/03/2015 TATI TAMAYO Ot 715.35 2015 TATI TAMAYO Ot 715.35 Procedures There is no data. Results There is no data. Encounters ACCT No. Visit Date/Time Discharge Status Pt. Type Provider Facility Loc./Unit Complaint [id number] 02/11/2015 10:28:00 02/11/2015 23:59:59 [facility] Outpatient TATI TAMAYO [email or web address] 02/11/2015 10:29:38 [facility] Document Registration
--- NOTE | 2018-08-26 11:32 | ED Head Injury ---
General Chief Complaint: Trauma-Non Activation Stated Complaint: HEAD LACERATION Nursing Triage Note: PT REPORTS FALLING THIS MORNING AND HITTING THE LEFT SIDE OF HER HEAD. DENIES LOC. Source: patient Exam Limitations: no limitations History of Present Illness Date Seen by Provider: Aug 26, 2018 Time Seen by Provider: 11:00 Initial Comments 88-year-old female who was brought to the emergency room by her for reports of laceration to her scalp after a fall this morning. Her reports that he witnessed her tripping and falling striking her head on the ground. The patient is alert and baseline, has a history of dementia. The reports that she did not have loss of consciousness. The patient denies any pain on arrival to the emergency room. Occurred: this morning Method of Injury: fell Loss of Consciousness: no loss of consciousness Associated Systoms: Denies Symptoms Allergies and Home Medications Allergies Coded Allergies: No Known Drug Allergies (Unverified , 08/26/18) Past Drgbqda-Fqlfmx-Oywsae Hx Patient Social History Alcohol Use: Denies Use Recreational Drug Use: No Smoking Status: Never a Smoker Recent Foreign Travel: No Contact w/Someone Who Travel: No Recent Infectious Disease Expo: No Recent Hopitalizations: No Seasonal Allergies Seasonal Allergies: No Past Medical History Surgeries: No Respiratory: No Cardiac: No Neurological: Yes Dementia Genitourinary: No Gastrointestinal: No Musculoskeletal: No Endocrine: No HEENT: No Cancer: No Psychosocial: Yes Integumentary: No Blood Disorders: No Physical Exam Vital Signs Vital Signs - First Documented 08/26/18 10:20 Temp 98.0 Pulse 86 Resp 16 B/P (MAP) 133/82 (99) Pulse Ox 98 Capillary Refill : Less Than 3 Seconds Height, Weight, BMI Height: 5'3.00" Weight: 140lbs. oz. 63.160793jm; BMI Method:Stated Progress/Results/Core Measures Results/Orders My Orders Orders - DAREN PICKETT Ct Head/Cervical Spine Wo (08/26/18 11:06) Lidocaine 1% Inj 20 Ml (Xylocaine 1% Inj (08/26/18 11:45) Dipht,Pertuss(Acell),Tet Adult (Boostrix (08/26/18 11:45) Medications Given in ED Current Medications Medications Dose Ordered Sig/Mallory Route Start Time Stop Time Status Last Admin Dose Admin Diphtheria/ Tetanus/Acell Pertussis 0.5 ml ONCE ONCE IM 08/26/18 11:45 08/26/18 11:46 DC 08/26/18 11:53 0.5 ML Lidocaine HCl 20 ml ONCE ONCE INJ 08/26/18 11:45 08/26/18 11:46 DC 08/26/18 11:55 20 ML Vital Signs/I&O 08/26/18 10:20 Temp 98.0 Pulse 86 Resp 16 B/P (MAP) 133/82 (99) Pulse Ox 98 Blood Pressure Mean: 99 Progress Progress Note : Progress Note 6 carolny Departure Impression Primary Impression: Scalp laceration Additional Impression: Minor head injury Disposition: HOME, SELF-CARE Condition: Stable/Unchanged Departure-Patient Inst. Decision time for Depature: 12:32 Referrals: INGA MATHEW MD (PCP) Primary Care Physician Patient Instructions: Minor Head Injury (DC) Add. Discharge Instructions: Watch for signs of infection such as increased redness, swelling, drainage, pain. Return back to the emergency room or to your primary care provider to have the carolyn removed in 7 days. Follow-up with primary care provider as needed. You may wash her hair normally just do not runny coma through it or submerge her head completely. Return back to the emergency room for worsening symptoms, change in mental status or loss of consciousness, or concerns as needed. All discharge instructions reviewed with patient and/or family. Voiced understanding. DAREN PICKETT Aug 26, 2018 11:32
[2018-08-26] MEDS ORDERED: LIDOCAINE 1% INJ 20 ML 20 ML VIAL INJ ONE (11:45)
[2018-08-26] MEDS ORDERED: TETANUS,DIPTH,PERTUSS P/F (BOOSTRIX) 0.5 ML VIAL IM ONE (11:45)
--- NOTE | 2018-08-26 12:06 | Diagnostic Imaging Report ---
PROCEDURE: CT head and CT cervical spine without contrast. TECHNIQUE: Multiple contiguous axial images were obtained through the brain and cervical spine without the use of intravenous contrast. Sagittal and coronal reformations through the cervical spine were then performed. INDICATION: Head trauma. Comparison made with prior examination from 07/10/18 Findings: There is prominence of the ventricles and sulci. There is moderate chronic microvascular ischemic disease. Calvarium is intact. The sinuses and mastoid air cells are clear. Is reversal of normal cervical lordosis. There is some anterolisthesis of C3 on C4 which appears to be on a degenerative basis. There is marked degenerative disc disease at C4-5 and C5-6. There is posterior facet arthropathy. Vertebral body heights are well-maintained. There is no fracture or traumatic subluxation. The odontoid is intact and lateral masses are well aligned. The lung apices are clear. Impression: Atrophy and some chronic microvascular ischemic disease however no acute intracranial abnormality. Moderately severe cervical spondylosis and degenerative disc disease without acute fracture or traumatic subluxation. Dictated by: Dictated on workstation # [id number]
[2018-08-26 12:43] VITALS: BP 133/82
== END 2018-08-26 12:43 | disposition home or self-care (01) ==
LOC: EDUNIT# 10:09 → ER 10:14
DX: S01.01XA Laceration without foreign body of scalp, initial encounter (principal); F03.90 Unspecified dementia, unspecified severity, without behavioral disturbance, psychotic disturbance, mood disturbance, and anxiety; Z23 Encounter for immunization; W01.198A Fall on same level from slipping, tripping and stumbling with subsequent striking against other object, initial encounter
CPT/HCPCS: 70450; 72125; 90715